=== PATIENT | female | born 1955 ===

== ENCOUNTER → 2022-05-22 10:22 | Outpatient (BNVA) | payer MEDICARE, SELFPAY | PROVIDERS: PCP Internal Medicine; Visit Provider Hospitalist | DX: J45.909 Unspecified asthma, uncomplicated (principal); G47.33 Obstructive sleep apnea (adult) (pediatric); Z79.899 Other long term (current) drug therapy; Z99.89 Dependence on other enabling machines and devices | CPT/HCPCS: 99202 ==

== ENCOUNTER 2022-06-19 10:45 | Outpatient (REF) | payer MEDICARE, SELFPAY ==
--- NOTE | 2022-06-19 12:12 | PFT_ITS ---
INDICATION: Dyspnea. SPIROMETRY: FEV1 to FVC of 80% with an FEV1 of 1.27 L, which is 52% predicted and an FVC of 1.59 L, which is 51% predicted. No significant response to bronchodilators noted. Maximum voluntary ventilation 53% predicted. LUNG VOLUMES: Total lung capacity 65% predicted with an expiratory reserve volume of 8% predicted. DIFFUSION CAPACITY: DLCO 74% predicted, now it does correct to 125% predicted when corrected for the alveolar volume. COMPARISONS: None. INTERPRETATION: No obstructive ventilatory defect, no significant response to bronchodilators noted. To note, there is significant small airways disease. There is also moderate decrease in maximum voluntary ventilation secondary to likely deconditioning and/or neuromuscular conditions. The patient does have a moderate restrictive ventilatory defect of unclear etiology. Need to consider underlying parenchymal lung conditions and/or neuromuscular conditions. Also need to consider an elevated BMI. The patient does have a significantly low expiratory reserve volume that is likely due to elevated BMI. The patient also has mild diffusion impairment. Does correct to normal when correcting for the alveolar volume. Clinical correlation warranted. Slick Diego MD MR/MODL / [id number]
[2022-06-19 12:24] LABS: MANUAL DIFF FLAG NO
[2022-06-19 13:24] LABS: Basophils Percent Auto 0.5 % (0-2); Eosinophils Percent Auto 0.3 % (0-4); Hemoglobin 13.7 g/dl (12.0-16.0); Imm Gran Abs Auto 0.01 X10*3/uL (0.00-0.03); Imm Gran Pct Auto 0.2 % (0.0-0.4); Lymphocytes Absolute Auto 2.5 X10*3/uL (1.2-4.9); Lymphocytes Percent Auto 37.7 % (20-40); Mean Corpuscular HGB Conc 32.6 g/dl (31.0-35.0); Mean Corpuscular Hemoglobin 29.7 pg (27.0-33.0); Mean Corpuscular Volume 91.1 fL (80.0-98.0); Monocytes Absolute Auto 0.5 X10*3/uL (0.1-1.2); Monocytes Percent Auto 7.4 % (2-11); Neutrophils Absolute Auto 3.5 x10*3/uL (2.0-8.3); Neutrophils Percent Auto 53.9 % (45-73); Platelet Count 182 X10*3/uL (160-400); Red Blood Count 4.61 X10*6/uL (4.20-5.50); Red Cell Distribution Width 12.3 % (11.0-16.0); White Blood Count 6.5 X10*3/uL (4.8-10.8)
[2022-06-19 13:49] LABS: Anion Gap 14 (12-20); Blood Urea Nitrogen 16 mg/dL (9-16); Calcium 9.6 mg/dL (8.4-10.2); Carbon Dioxide 30 mmol/L (22-29); Chloride 104 mmol/L (96-108); Estimated Glomerular Filt Rate > 60; Glucose Random 117 mg/dL (60-115); Potassium 4.4 mmol/L (3.3-5.1); Sodium 144 mmol/L (135-145)
[2022-06-19 14:04] LABS: Erythrocyte Sedimentation Rate 5 MM/HR (0-20)
== END 2022-06-19 10:46 | disposition home or self-care (01) ==
LOC: HO.RESP 10:45
PROVIDERS: PCP Internal Medicine; Visit Provider Hospitalist
DX: J45.909 Unspecified asthma, uncomplicated (principal); R06.00 Dyspnea, unspecified; J30.2 Other seasonal allergic rhinitis
CPT/HCPCS: 36415; 80048; 82785; 85025; 85652; 86003; 94060; 94727; 94729

== ENCOUNTER → 2022-07-05 10:47 | Outpatient (BNVA) | payer MEDICARE, SELFPAY | PROVIDERS: PCP Internal Medicine; Visit Provider Hospitalist | DX: J45.50 Severe persistent asthma, uncomplicated (principal); J98.4 Other disorders of lung; R06.09 Other forms of dyspnea; G47.33 Obstructive sleep apnea (adult) (pediatric); Z79.899 Other long term (current) drug therapy | CPT/HCPCS: 99212 ==

== ENCOUNTER → 2022-09-14 09:52 | Outpatient (BNVA) | payer MEDICARE, SELFPAY | PROVIDERS: PCP Internal Medicine; Visit Provider Hospitalist | DX: J45.51 Severe persistent asthma with (acute) exacerbation (principal); G47.33 Obstructive sleep apnea (adult) (pediatric); J98.4 Other disorders of lung; R06.09 Other forms of dyspnea | CPT/HCPCS: 99212 ==

== ENCOUNTER → 2022-11-22 13:21 | Outpatient (BNVA) | payer MEDICARE, SELFPAY | PROVIDERS: PCP Internal Medicine; Visit Provider Nurse Practitioner Family | DX: G44.309 Post-traumatic headache, unspecified, not intractable (principal); M54.2 Cervicalgia; R42 Dizziness and giddiness; Z79.899 Other long term (current) drug therapy | CPT/HCPCS: 99202 ==

== ENCOUNTER → 2022-12-14 09:46 | Outpatient (BNVA) | payer MEDICARE, SELFPAY | PROVIDERS: PCP Internal Medicine; Visit Provider Hospitalist | DX: J45.51 Severe persistent asthma with (acute) exacerbation (principal); J98.4 Other disorders of lung; G47.33 Obstructive sleep apnea (adult) (pediatric); R06.09 Other forms of dyspnea | CPT/HCPCS: 99212 ==

== ENCOUNTER → 2023-01-31 12:43 | Outpatient (BNVA) | payer MEDICARE, SELFPAY | PROVIDERS: PCP Internal Medicine; Visit Provider Nurse Practitioner Family | DX: G44.309 Post-traumatic headache, unspecified, not intractable (principal); M54.2 Cervicalgia; R42 Dizziness and giddiness | CPT/HCPCS: 99212 ==

== ENCOUNTER → 2023-03-25 10:19 | Outpatient (BNVA) | payer MEDICARE, SELFPAY | PROVIDERS: PCP Internal Medicine; Visit Provider Hospitalist | DX: J45.51 Severe persistent asthma with (acute) exacerbation (principal); J98.4 Other disorders of lung; R06.09 Other forms of dyspnea; G47.33 Obstructive sleep apnea (adult) (pediatric) | CPT/HCPCS: 99212 ==

== ENCOUNTER 2023-07-24 10:58 | Outpatient (AMB) | payer OTHER, SELFPAY ==
--- NOTE | 2023-07-24 11:21 | A.OFFVIS_ITS ---
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 Allergies naproxen Allergy (Severe, Verified 07/24/23 11:25) Hives acetaminophen [From Percocet] Adverse Reaction (Severe, Verified 07/24/23 11:25) Hallucinations aspirin Adverse Reaction (Severe, Verified 07/24/23 11:25) Hives codeine Adverse Reaction (Severe, Verified 07/24/23 11:25) Itching ibuprofen [From Motrin IB] Adverse Reaction (Severe, Verified 07/24/23 11:25) Hives Iodinated Contrast Media Adverse Reaction (Severe, Verified 07/24/23 11:25) Hypertension mepolizumab [From Nucala] Adverse Reaction (Severe, Verified 07/24/23 11:25) Itching metformin Adverse Reaction (Severe, Verified 07/24/23 11:25) Difficulty Breathing montelukast [From Singulair] Adverse Reaction (Severe, Verified 07/24/23 11:25) Anxiety morphine Adverse Reaction (Severe, Verified 07/24/23 11:25) Hallucinations omalizumab [From Xolair] Adverse Reaction (Severe, Verified 07/24/23 11:25) Anaphylaxis oxycodone Adverse Reaction (Severe, Verified 07/24/23 11:25) Hallucinations pneumococcal vaccine Adverse Reaction (Severe, Verified 07/24/23 11:25) Hives prednisone Adverse Reaction (Severe, Verified 07/24/23 11:25) Itching tramadol Adverse Reaction (Severe, Verified 07/24/23 11:25) Hives accolate Adverse Reaction (Severe, Uncoded 07/24/23 11:25) Chest Pain PCN Adverse Reaction (Severe, Uncoded 07/24/23 11:25) Hives HPI HPI Comments History of Present Illness Details The patient is a 67-year-old woman with a known history of asthma in addition to obstructive sleep apnea. She has been noticing worsening respiratory symptoms. She was placed on singular as a steroid sparing agent. However, she developed symptoms of depression and had to come off. She is continued on Trelegy which appears to be helping her. The patient had been on Nucala in the past for severe asthma. However, she developed an allergic reaction as well and had to stop it. She has not tried any other biologic medications after that. The patient has not required any prednisone. She also has diabetes and would like to hold off on any significant steroids that can worsen her diabetes control. The patient does have underlying allergies at this point will go ahead and we check her allergies to further assess her potential triggers in order to control her asthma symptoms. The patient also has underlying sleep apnea. She has been having difficulties tolerating the CPAP therapy. Therefore she has not been using it regularly the patient also has a hard time sleeping. She has been using gabapentin with some partial improvement of her symptoms. She does complaint of restless leg. 12/14/2022 the patient is here for a pulm onary follow-up visit. She recently started day Dupixent. She did complain of significant muscle aches after the injections. I reassured her that this is the loading dose and then next dosages are going to be a lower dose and hopefully less symptoms. The body will take some time to adjust to the medication. The patient has been on significant amount of prednisone and she has a lot of allergies. I did reassure her that this injections not only going to help her now but also when she goes into the springtime and she deals with her severe asthma. On examination she is better she is not having any wheezing already from getting injections. In the meantime she has been using her CPAP. However, her CPAP is no longer functional. Shortening up by itself. She is also concerned because she is not been getting any supplies either. I will send a request for replacement machine especially since she has had this machine for well over 5 years. And now is nonfunctional and should be replaced. In addition to that she continue getting supplies readily specially since she is so adherent to her therapy. 03/25/2023 the patient is here for pulmon marisela follow-up visit. Overall the patient has been feeling little better. She did have COVID-19 recently. She did take packs over. It was hard medication for her to tolerate but she took it. She was having significant GI symptoms. Right now she is doing better although now developing worsening respiratory symptoms. Complains of chest congestion chest tightness. She has been using her nebulizer. She is also using her respiratory medications. On examination she does have some wheezing and rhonchi and diminished breath sounds. 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 Will go ahead and start her on a Medrol pack and also give her doxycycline. In the meantime the patient continues use her CPAP CPAP therapy continues to be affecting beneficial. She will go back to using more regularly once she is better from her viral syndrome. 07/24/2023 the patient is here for a pul monshushan follow-up visit. She overall has been doing okay. She does have increase cough lately with this season change. Still has not required any prednisone or antibiotics. She continues on the Trelegy inhaler with good effect. Unfortunately her nebulizer is no longer working she does need a nebulizer. She has a new insurance so therefore her current DME company does not work with that new insurance and therefore would have to switch her to a new DME company. The patient needs a new nebulizer at this time. In addition to that she has been using the CPAP the CPAP therapy continues to be affecting beneficial she does use it for more than 4 hours a night. However, her DME company currently is not given her any supplies which is difficult for her. Therefore will going to submit a new prescription for s upplies to another DME company that takes her current insurance. The patient will bring her machine in the next 6 months and will evaluate the machine to see if she needs a replacement CPAP at that time. She will receive the Prevnar vaccine today. She initially did have some dizziness with it but she did well after drinking some fluid in eating some crackers and she was able to go home. If she has any other adverse effects she can call the office. She is aware that this is a vaccine that is lifelong. The patient will continue her current respiratory therapy will follow-up in 6 months. [facility] Medical History (Updated 07/19/23 @ 13:31 by Faviola Rahman) Osteoarthritis Diabetic peripheral neuropathy Diabetes GERD (gastroesophageal reflux disease) Venous insufficiency Vitamin D deficiency Urinary incontinence Insomnia Hypertriglyceridemia HTN (hypertension) Anxiety Depression Lumbar spondylosis Tubular adenoma Dyspnea Chronic restrictive lung disease Asthma TONY (obstructive sleep apnea) Surgical History (Updated 07/19/23 @ 13:31 by Faviola Rahman) History of hernia repair H/O: hysterectomy Hx of cholecystectomy History of section Hx of appendectomy History of ankle surgery Family History (System 07/19/23 @ 13:31 by Faviola Rahman) Father CHF (congestive heart failure) Mother CHF (congestive heart failure) Asthma Brother Asthma Social History (System 07/19/23 @ 13:31 by Faviola Rahman) Alcohol intake: never Patient Tobacco Use Status: Never used Tobacco Review of Systems Const Reports difficulty sleeping and Reports fatigue Eyes Denies change in vision ENT Denies change in voice, Reports nasal congestion and Reports nasal discharge Card Denies chest pain and Reports dyspnea on exertion Resp Reports cough, Reports dyspnea on exertion and Reports wheezing GI Reports no additional complaints Musc Reports no additional complaints Skin/Breast Denies rash Neuro Reports no additional complaints Endo Reports fatigue Fernando/Lymph Denies easy bleeding Aller/Immun Reports wheezing Physical Exam Vital Signs: Last Vital Signs Pulse 87 07/24/23 11:22 BP 128/70 07/24/23 11:22 Pulse Ox 97 07/24/23 11:22 Oxygen Delivery Method Room Air 07/24/23 11:22 BMI result Body Mass Index 36.4 Const General: comfortable HEENT Head: Yes normal to inspection Eyes General: appearance normal, both eyes and all related structures Neck Neck: Yes supple Chest Chest palpation & inspection: normal inspection of the chest Resp Effort & Inspection: normal respiratory effort Auscultation: rhonchi, wheezes and diminished lung sounds Cardio Rate: regular rate Rhythm: regular rhythm Heart sounds: S1 normal heart sound present and S2 normal heart sound present GI Inspection: Yes normal to inspection Extrem General: Yes no clubbing, cyanosis or edema Immunizations pneumoc 20-rajni conj-dip cr(PF) 0.5 mL IM syringe Performing Provider: Slick Diego MD Performing Location: [facility] [place] [facility] Administered by: Alma Hernandez LPN on 07/24/23 11:50 Dose Route Admin Location Dispensed Lot Number Expiration Date [facility] [employer] 0.5 mL IM Right Deltoid 0.5 mL [id number] 07/30/24 6149-7774-55 [employer] VIS Given Date VIS Provided VIS Publication Date 07/24/23 Single Vaccine 23 Eligibility Eligibility Date Funding Source Not [facility] Eligible 07/24/23 Private Assessment & Plan Assessment & Plan (1) Asthma: Qualifiers: Asthma complication type: uncomplicated Asthma persistence: persistent Asthma severity: severe Qualified Code(s): J45.50 - Severe persistent asthma, uncomplicated (2) TONY (obstructive sleep apnea): Code(s): G47.33 - Obstructive sleep apnea (adult) (pediatric) (3) Chronic restrictive lung disease: Code(s): J98.4 - Other disorders of lung (4) Dyspnea: Qualifiers: Dyspnea type: dyspnea on exertion Qualified Code(s): R06.09 - Other forms of dyspnea Plan continue Dupixent, monitor for parasthesias Needs anew nebulizer. Her current nebulizer is broken beyond repair and older than 5 years Benadryl as needed EpiPen available continue Trelegy 100 mcg inhaler MEMO as needed continue Zyrtec avoid singular secondary to depressive symptoms Adjusted APAP 5-12, HUmidity 1. Needs supplies. Konstantin BARRIOS, will request a new [employer] company. She will bring her APAP to the next visit to assess Prevnar vaccine, had some nausea and dizziness afterwards, but felt better after 10 minutes and went home F/U 4-6 months Orders: Orders Pneumococcal 20 Immunization Today Z23 - Encounter for immunization Medications: Refilled epinephrine 0.3 mg (0.3 mL) IM Q4H 30 days PRN 2 ea 11RF anaphylaxis Coding Level of Care Code Est Pt Level 4 (88366) Diagnoses Severe persistent asthma without complication J45.50 Asthma complication type: uncomplicated Asthma persistence: persistent Asthma severity: severe TONY (obstructive sleep apnea) G47.33 Chronic restrictive lung disease J98.4 Dyspnea on exertion R06.09 Dyspnea type: dyspnea on exertion Time Spent (min) 22
[2023-07-24 11:22] VITALS: BP 128/70; PULSE 87; O2SAT 97; BMI 36.4
== END 2023-07-24 11:58 | disposition home or self-care (01) ==
PROVIDERS: PCP Internal Medicine; Visit Provider Hospitalist
DX: J45.50 Severe persistent asthma, uncomplicated (principal); G47.33 Obstructive sleep apnea (adult) (pediatric); J98.4 Other disorders of lung; R06.09 Other forms of dyspnea
CPT/HCPCS: 99214

== ENCOUNTER → 2023-07-24 10:58 | Outpatient (BNVA) | payer OTHER, SELFPAY | PROVIDERS: PCP Internal Medicine; Visit Provider Hospitalist | DX: Z23 Encounter for immunization (principal); J45.50 Severe persistent asthma, uncomplicated; G47.33 Obstructive sleep apnea (adult) (pediatric); J98.4 Other disorders of lung; R06.09 Other forms of dyspnea | CPT/HCPCS: 90471; 90677; 99212 ==

== ENCOUNTER 2023-08-05 10:48 | Outpatient (AMB) | payer OTHER, SELFPAY ==
--- NOTE | 2023-08-05 11:02 | A.OFFVIS_ITS ---
Intake Vital Signs 08/05/23 11:24 Weight 209 lb BP 120/84 Pulse 88 Pulse Source Pulse Oximeter Pulse Oximetry (%) 95 Oxygen Delivery Method Room Air Intake Visit Reasons: 6m follow up Migraine/Concussion/Recent fall/Conf. 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 Allergies naproxen Allergy (Severe, Verified 08/05/23 11:09) Hives acetaminophen [From Percocet] Adverse Reaction (Severe, Verified 08/05/23 11:09) Hallucinations aspirin Adverse Reaction (Severe, Verified 08/05/23 11:09) Hives codeine Adverse Reaction (Severe, Verified 08/05/23 11:09) Itching ibuprofen [From Motrin IB] Adverse Reaction (Severe, Verified 08/05/23 11:09) Hives Iodinated Contrast Media Adverse Reaction (Severe, Verified 08/05/23 11:09) Hypertension mepolizumab [From Nucala] Adverse Reaction (Severe, Verified 08/05/23 11:09) Itching metformin Adverse Reaction (Severe, Verified 08/05/23 11:09) Difficulty Breathing montelukast [From Singulair] Adverse Reaction (Severe, Verified 08/05/23 11:09) Anxiety morphine Adverse Reaction (Severe, Verified 08/05/23 11:09) Hallucinations omalizumab [From Xolair] Adverse Reaction (Severe, Verified 08/05/23 11:09) Anaphylaxis oxycodone Adverse Reaction (Severe, Verified 08/05/23 11:09) Hallucinations pneumococcal vaccine Adverse Reaction (Severe, Verified 08/05/23 11:09) Hives prednisone Adverse Reaction (Severe, Verified 08/05/23 11:09) Itching tramadol Adverse Reaction (Severe, Verified 08/05/23 11:09) Hives accolate Adverse Reaction (Severe, Uncoded 08/05/23 11:09) Chest Pain PCN Adverse Reaction (Severe, Uncoded 08/05/23 11:09) Hives HPI HPI Comments History of Present Illness Details 67[facility]yr-[facility]. Pt reports that headache frequency has improved, might had mild headache couple of days per month, or no headache. She uses Tylenol every 2-3/month and it helps. She can gets face muscle spasm occasionally, it happens with headache, but not all the time. Pt's headache can come with neck and shoulder muscle tightness. Pt also uses flexiril 10 mg and baclofen 10 mg for muscle tightness. She is on magnesium 400 mg qHS and vitamin B2 400 mg daily. Pt reports that she sleeps well with CPAP, her mood is stable. [facility] Medical History Osteoarthritis Diabetic peripheral neuropathy Diabetes GERD (gastroesophageal reflux disease) Venous insufficiency Vitamin D deficiency Urinary incontinence Insomnia Hypertriglyceridemia HTN (hypertension) Anxiety Depression Lumbar spondylosis Tubular adenoma Dyspnea Chronic restrictive lung disease Asthma TONY (obstructive sleep apnea) Surgical History History of hernia repair H/O: hysterectomy Hx of cholecystectomy History of section Hx of appendectomy History of ankle surgery Family History Father CHF (congestive heart failure) Mother CHF (congestive heart failure) Asthma Brother Asthma Social History Alcohol intake: never Patient Tobacco Use Status: Never used Tobacco Review of Systems Const All systems reviewed & are unremarkable except as noted in HPI and below Physical Exam Vital Signs: Last Vital Signs Pulse 88 08/05/23 11:24 BP 120/84 08/05/23 11:24 Pulse Ox 95 08/05/23 11:24 Oxygen Delivery Method Room Air 08/05/23 11:24 Const Orientation/consciousness: patient oriented x3 Resp Effort & Inspection: normal respiratory effort and able to speak in complete sentences Back/Spine/Pelvis Other: Fore corrales head posture. Bilateral posterior cervical tightness and tenderness. Neuro Other: BUE MS 5/5 BLE MS 5-/5 General: patient oriented x3 Cranial nerves: Yes CN's II-XII intact bilaterally Cognition (Neuro): normal cognition Deep tendon reflexes (DTR's): Right triceps reflex intensity grade: 1+, Left triceps reflex intensity grade: 1+, Rt Biceps (C5, C6): 1+, Left biceps reflex intensity grade: 1+, Right brachioradialis reflex intensity grade: 1+, Left brachioradialis reflex intensity grade: 1+, Right patellar reflex intensity grade: 1+ and Left patellar reflex intensity grade: 1+ Coordination: [id number] test normal Pupils: Normal pupillary reactivity/response: bilateral Psych Mental Status: mental status grossly normal Speech and movement: Normal speech and movement present Affect: normal affect Attitude: cooperative Thought process: Normal thought process present Assessment & Plan Assessment & Plan (1) Posttraumatic headache: Code(s): G44.309 - Post-traumatic headache, unspecified, not intractable (2) Cervicalgia: Code(s): M54.2 - Cervicalgia (3) Dizziness: Code(s): R42 - Dizziness and giddiness Plan Continue Baclofen 10mg qHS, magnesium 400 mg qHS and vitamin B2 400 mg daily. Avoid all NSAIDs, and continue to use CPAP nightly. Medications: Refilled baclofen 10 mg PO BEDTIME 90 days 90 tabs 1RF magnesium oxide 400 mg PO DAILY 90 days 90 tabs 1RF riboflavin (vitamin B2) 400 mg PO DAILY 90 days 90 tabs 1RF Coding Level of Care Code Est Pt Level 3 (26393) Diagnoses Posttraumatic headache G44.309 Cervicalgia M54.2 Dizziness R42
[2023-08-05 11:24] VITALS: BP 120/84; PULSE 88; O2SAT 95
== END 2023-08-05 11:43 | disposition home or self-care (01) ==
PROVIDERS: Visit Provider Nurse Practitioner Family
DX: G44.309 Post-traumatic headache, unspecified, not intractable (principal); M54.2 Cervicalgia; R42 Dizziness and giddiness
CPT/HCPCS: 99213

== ENCOUNTER → 2023-08-05 10:48 | Outpatient (BNVA) | payer OTHER, SELFPAY | PROVIDERS: Visit Provider Nurse Practitioner Family | DX: G44.309 Post-traumatic headache, unspecified, not intractable (principal); M54.2 Cervicalgia; R42 Dizziness and giddiness; Z79.899 Other long term (current) drug therapy | CPT/HCPCS: 99212 ==

== ENCOUNTER 2023-10-23 10:40 | Outpatient (AMB) | payer OTHER, SELFPAY ==
--- NOTE | 2023-10-23 11:16 | MHC.OFFVIS ---
Intake Vital Signs 10/23/23 11:20 Height 5 ft 4.5 in Weight 208 lb 15.971 oz BMI 35.3 Pulse 87 Pulse Source Pulse Oximeter Pulse Oximetry (%) 94 Oxygen Delivery Method Room Air Intake Visit Reasons: Obstructive sleep apnea follow-up Clinical Trials Manager Required: No Allergies naproxen Allergy (Severe, Verified 10/23/23 11:22) Hives acetaminophen [From Percocet] Adverse Reaction (Severe, Verified 10/23/23 11:22) Hallucinations aspirin Adverse Reaction (Severe, Verified 10/23/23 11:22) Hives codeine Adverse Reaction (Severe, Verified 10/23/23 11:22) Itching ibuprofen [From Motrin IB] Adverse Reaction (Severe, Verified 10/23/23 11:22) Hives Iodinated Contrast Media Adverse Reaction (Severe, Verified 10/23/23 11:22) Hypertension mepolizumab [From Nucala] Adverse Reaction (Severe, Verified 10/23/23 11:22) Itching metformin Adverse Reaction (Severe, Verified 10/23/23 11:22) Difficulty Breathing montelukast [From Singulair] Adverse Reaction (Severe, Verified 10/23/23 11:22) Anxiety morphine Adverse Reaction (Severe, Verified 10/23/23 11:22) Hallucinations omalizumab [From Xolair] Adverse Reaction (Severe, Verified 10/23/23 11:22) Anaphylaxis oxycodone Adverse Reaction (Severe, Verified 10/23/23 11:22) Hallucinations pneumococcal vaccine Adverse Reaction (Severe, Verified 10/23/23 11:22) Hives prednisone Adverse Reaction (Severe, Verified 10/23/23 11:22) Itching tramadol Adverse Reaction (Severe, Verified 10/23/23 11:22) Hives accolate Adverse Reaction (Severe, Uncoded 10/23/23 11:22) Chest Pain PCN Adverse Reaction (Severe, Uncoded 10/23/23 11:22) Hives HPI HPI Comments History of Present Illness Details The patient is a 68-year-old woman with a known history of asthma in addition to obstructive sleep apnea. She has been noticing worsening respiratory symptoms. She was placed on singular as a steroid sparing agent. However, she developed symptoms of depression and had to come off. She is continued on Trelegy which appears to be helping her. The patient had been on Nucala in the past for severe asthma. However, she developed an allergic reaction as well and had to stop it. She has not tried any other biologic medications after that. The patient has not required any prednisone. She also has diabetes and would like to hold off on any significant steroids that can worsen her diabetes control. The patient does have underlying allergies at this point will go ahead and we check her allergies to further assess her potential triggers in order to control her asthma symptoms. The patient also has underlying sleep apnea. She has been having difficulties tolerating the CPAP therapy. Therefore she has not been using it regularly the patient also has a hard time sleeping. She has been using gabapentin with some partial improvement of her symptoms. She does complaint of restless leg. 12/14/2022 the patient is here for a pulmonary follow-up visit. She recently started day Dupixent. She did complain of significant muscle aches after the injections. I reassured her that this is the loading dose and then next dosages are going to be a lower dose and hopefully less symptoms. The body will take some time to adjust to the medication. The patient has been on significant amount of prednisone and she has a lot of allergies. I did reassure her that this injections not only going to help her now but also when she goes into the springtime and she deals with her severe asthma. On examination she is better she is not having any wheezing already from getting injections. In the meantime she has been using her CPAP. However, her CPAP is no longer functional. Shortening up by itself. She is also concerned because she is not been getting any supplies either. I will send a request for replacement machine especially since she has had this machine for well over 5 years. And now is nonfunctional and should be replaced. In addition to that she continue getting supplies readily specially since she is so adherent to her therapy. 03/25/2023 the patient is here for pulmonary follow-up visit. Overall the patient has been feeling little better. She did have COVID-19 recently. She did take packs over. It was hard medication for her to tolerate but she took it. She was having significant GI symptoms. Right now she is doing better although now developing worsening respiratory symptoms. Complains of chest congestion chest tightness. She has been using her nebulizer. She is also using her respiratory medications. On examination she does have some wheezing and rhonchi and diminished breath sounds. 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 Will go ahead and start her on a Medrol pack and also give her doxycycline. In the meantime the patient continues use her CPAP CPAP therapy continues to be affecting beneficial. She will go back to using more regularly once she is better from her viral syndrome. 07/24/2023 the patient is here for a pulmonary follow-up visit. She overall has been doing okay. She does have increase cough lately with this season change. Still has not required any prednisone or antibiotics. She continues on the Trelegy inhaler with good effect. Unfortunately her nebulizer is no longer working she does need a nebulizer. She has a new insurance so therefore her current DME company does not work with that new insurance and therefore would have to switch her to a new DME company. The patient needs a new nebulizer at this time. In addition to that she has been using the CPAP the CPAP therapy continues to be affecting beneficial she does use it for more than 4 hours a night. However, her DME company currently is not given her any supplies which is difficult for her. Therefore will going to submit a new prescription for supplies to another [employer] company that takes her current insurance. The patient will bring her machine in the next 6 months and will evaluate the machine to see if she needs a replacement CPAP at that time. She will receive the Prevnar vaccine today. She initially did have some dizziness with it but she did well after drinking some fluid in eating some crackers and she was able to go home. If she has any other adverse effects she can call the office. She is aware that this is a vaccine that is lifelong. The patient will continue her current respiratory therapy will follow-up in 6 months. 10/23/2023 the patient is here for a pulmonary follow-up visit. Apparently she was sick back close to the holidays. She had a hard time getting in to be seen. Therefore she stayed home and gave herself breathing treatments throughout the day and finally started feeling better after few days. She was concerned though that her breathing was significantly effective. The patient did not take any prednisone and she does not like to take prednisone because it causes her to have pleuritis and also elevated blood sugars. She is also struggling with her sleep. She does have a CPAP in the CPAP therapy has been very affecting beneficial for her in the past but now she does not get supplies from the DME company. Her machine now is older than 5 years therefore will see about getting her new machine them in more effective and then that weight getting her situated with the [facility] [facility]. Her Adell score is elevated at 10 over 24. She does have cardiovascular risk factors are treating his sleep apnea is important. The patient likely will require repeat home sleep study. Will reach out to her [employer] to see if they need any other additional information in order to get a replacement machine at this time. In the meantime for her respiratory symptoms she does have increased wheezing therefore will send him medications with the pharmacy and will optimize her Trelegy by switching over to the 200 mcg dose for a month and then hopefully we can titrate her back down to the 100 mcg those. [facility] Medical History Osteoarthritis Diabetic peripheral neuropathy Diabetes GERD (gastroesophageal reflux disease) Venous insufficiency Vitamin D deficiency Urinary incontinence Insomnia Hypertriglyceridemia HTN (hypertension) Anxiety Depression Lumbar spondylosis Tubular adenoma Dyspnea Chronic restrictive lung disease Asthma TONY (obstructive sleep apnea) Surgical History History of hernia repair H/O: hysterectomy Hx of cholecystectomy History of section Hx of appendectomy History of ankle surgery Family History Father CHF (congestive heart failure) Mother CHF (congestive heart failure) Asthma Brother Asthma Social History Alcohol intake: never Patient Tobacco Use Status: Never used Tobacco Physical Exam Vital Signs: Last Vital Signs Pulse 87 10/23/23 11:20 Pulse Ox 94 10/23/23 11:20 Oxygen Delivery Method Room Air 10/23/23 11:20 BMI result Body Mass Index 35.3 Assessment & Plan Assessment & Plan (1) Asthma: Code(s): J45.909 - Unspecified asthma, uncomplicated (2) TONY (obstructive sleep apnea): Code(s): G47.33 - Obstructive sleep apnea (adult) (pediatric) (3) Chronic restrictive lung disease: Code(s): J98.4 - Other disorders of lung (4) Dyspnea: Code(s): R06.00 - Dyspnea, unspecified Plan continue Dupixent, monitor for parasthesias nebulizer. Benadryl as needed EpiPen available Increase Trelegy 200 mcg inhaler x 1 month, then back to 100mcg MEMO as needed continue Zyrtec avoid singular secondary to depressive symptoms Needs a new APAP with supplies. Adjusted APAP 5-12, Will trial F30i medium. Home PSG to address TONY and reactivation F/U 4-6 months Medications: New sbntabbafym-sjqkhvkah-hifqdvrq 200-62.5-25 mcg (Trelegy Ellipta) 1 inh inhalation DAILY 30 days 60 ea 0RF azithromycin 500 mg PO DAILY 5 days 5 tabs 0RF methylprednisolone (Medrol (Evelio)) PO PER PKG DIR 6 days 21 ea 0RF Coding Level of Care Code Est Pt Level 4 (85406) Diagnoses Asthma J45.909 TONY (obstructive sleep apnea) G47.33 Chronic restrictive lung disease J98.4 Dyspnea R06.00 Time Spent (min) 17
[2023-10-23 11:20] VITALS: PULSE 87; O2SAT 94; BMI 35.3
== END 2023-10-23 11:51 | disposition home or self-care (01) ==
PROVIDERS: PCP Internal Medicine; Visit Provider Hospitalist
DX: J45.909 Unspecified asthma, uncomplicated (principal); G47.33 Obstructive sleep apnea (adult) (pediatric); J98.4 Other disorders of lung; R06.00 Dyspnea, unspecified
CPT/HCPCS: 99214

== ENCOUNTER → 2023-10-23 10:40 | Outpatient (BNVA) | payer OTHER, SELFPAY | PROVIDERS: PCP Internal Medicine; Visit Provider Hospitalist | DX: G47.33 Obstructive sleep apnea (adult) (pediatric) (principal); J45.909 Unspecified asthma, uncomplicated; J98.4 Other disorders of lung; R06.00 Dyspnea, unspecified | CPT/HCPCS: 99212 ==

== ENCOUNTER 2024-01-21 10:39 | Outpatient (AMB) | payer OTHER, SELFPAY ==
--- NOTE | 2024-01-21 10:49 | MHC.OFFVIS ---
Vital Signs 01/21/24 10:51 Height 5 ft 4 in Weight 195 lb BMI 33.5 BP 132/80 Blood Pressure Location Rt brachial Position Sitting Pulse 102 H Pulse Source Pulse Oximeter Pulse Oximetry (%) 98 Oxygen Delivery Method Room Air Intake Visit Reasons: astham/ED Allergies naproxen Allergy (Severe, Verified 01/21/24 10:57) Hives acetaminophen [From Percocet] Adverse Reaction (Severe, Verified 01/21/24 10:57) Hallucinations aspirin Adverse Reaction (Severe, Verified 01/21/24 10:57) Hives codeine Adverse Reaction (Severe, Verified 01/21/24 10:57) Itching ibuprofen [From Motrin IB] Adverse Reaction (Severe, Verified 01/21/24 10:57) Hives Iodinated Contrast Media Adverse Reaction (Severe, Verified 01/21/24 10:57) Hypertension mepolizumab [From Nucala] Adverse Reaction (Severe, Verified 01/21/24 10:57) Itching metformin Adverse Reaction (Severe, Verified 01/21/24 10:57) Difficulty Breathing montelukast [From Singulair] Adverse Reaction (Severe, Verified 01/21/24 10:57) Anxiety morphine Adverse Reaction (Severe, Verified 01/21/24 10:57) Hallucinations omalizumab [From Xolair] Adverse Reaction (Severe, Verified 01/21/24 10:57) Anaphylaxis oxycodone Adverse Reaction (Severe, Verified 01/21/24 10:57) Hallucinations pneumococcal vaccine Adverse Reaction (Severe, Verified 01/21/24 10:57) Hives prednisone Adverse Reaction (Severe, Verified 01/21/24 10:57) Itching tramadol Adverse Reaction (Severe, Verified 01/21/24 10:57) Hives accolate Adverse Reaction (Severe, Uncoded 01/21/24 10:57) Chest Pain PCN Adverse Reaction (Severe, Uncoded 01/21/24 10:57) Hives HPI HPI astham/ED: Details: Jazlyn is a pleasant 68 year old female, never smoker, with underlying asthma, HTN, TONY and DMII. She is under the care of Dr. Diego and presents today for a hospital discharge follow up, admitted to [facility] 01/08-01/13/24. She initially developed wheezing, syncope, dyspnea, pleuritic chest pain, productive cough a week prior to ED evaluation at [facility]. Cardiac workup negative, including troponins and EKG unremarkable. Orthostatics were +, treated with IVF. Respiratory panel negative however sputum culture grew norcardia. ID was consulted, placed on Batrim x 4 weeks as well as prednisone and discharged to a SNF. She reports improvements in the cough, however continues with fatigue, wheezing and dyspnea. [facility] Medical History Osteoarthritis Diabetic peripheral neuropathy Diabetes GERD (gastroesophageal reflux disease) Venous insufficiency Vitamin D deficiency Urinary incontinence Insomnia Hypertriglyceridemia HTN (hypertension) Anxiety Depression Lumbar spondylosis Tubular adenoma Dyspnea Chronic restrictive lung disease Asthma TONY (obstructive sleep apnea) Surgical History History of hernia repair H/O: hysterectomy Hx of cholecystectomy History of section Hx of appendectomy History of ankle surgery Family History Father CHF (congestive heart failure) Mother CHF (congestive heart failure) Asthma Brother Asthma Social History Alcohol intake: never Patient Tobacco Use Status: Never used Tobacco Review of Systems Const Denies chills, Denies excessive sweating, Denies fever(s), Denies headache(s) and Denies night sweats Eyes Denies dry eyes, Denies irritation and Denies itchy eyes ENT Reports Normal hearing present, Denies headache(s), Denies nasal congestion, Denies nasal discharge, Denies post nasal drip and Denies sore throat Card Denies chest pain, Denies chest pain at rest, Denies chest pain with activity, Denies claudication, Denies leg edema, Denies orthopnea and Denies paroxysmal nocturnal dyspnea Resp Denies chest congestion, Denies cough, Denies excessive phlegm production, Denies pain on inspiration, Denies pain with cough and Denies stridor Musc Denies myalgias Neuro Reports Normal hearing present and Denies headache(s) Endo Denies excessive sweating Fernando/Lymph Denies lymphadenopathy Aller/Immun Denies itchy eyes and Denies seasonal rhinorrhea Physical Exam Vital Signs: Last Vital Signs Pulse 102 H 01/21/24 10:51 BP 132/80 01/21/24 10:51 Pulse Ox 98 04/23/24 10:51 Oxygen Delivery Method Room Air 01/21/24 10:51 BMI result Body Mass Index 33.5 Const General: cooperative, healthy appearing, no acute distress, well developed and alert Nutritional Appearance: obese Orientation/consciousness: patient oriented x3 Limitations: no limitations HEENT Head: Yes normal to inspection, Yes normocephalic and Yes atraumatic Ears: hearing grossly normal bilaterally and external ears normal Eyes General: appearance normal, both eyes and all related structures Eyelids: Yes eyelids normal Sclerae: sclerae normal EOM: EOMs intact bilaterally Neck Neck: Yes normal visual inspection and Yes no lymphadenopathy Lymphatic: no lymphadenopathy noted Chest Chest palpation & inspection: normal inspection of the chest Resp Other: moderate expiratory wheezing throughout, improved with neb treatment Effort & Inspection: normal respiratory effort, able to speak in complete sentences, no audible wheezes, no stridor, not tachypneic, no tripod positioning and no use of accessory muscles Cardio Jugular venous distension: no JVD Rate: regular rate Rhythm: regular rhythm Skin Other: warm, dry General skin exam: no rashes or lesions noted Neuro General: patient oriented x3 Cranial nerves: Yes Normal hearing present Cognition (Neuro): normal cognition Gait exam (Neuro): Normal gait present Extrem General: Yes normal to inspection, Yes capillary refill normal, Yes no clubbing, cyanosis or edema and Yes no pedal edema Psych Appearance: grossly normal and well kempt Speech and movement: Normal speech and movement present and Clear speech present Affect: normal affect Attitude: cooperative Thought process: Normal thought process present Thought content: Normal thought content present Insight: Good insight present (Psych) Judgement: Good judgement present (Psych) Office Procedures Nebulizer Treatment Nebulizer Treatment [id number]/MDI RX initial, or Nebulizer Subsequent Treatment Office Meds ipratropium 0.5 mg-albuterol 3 mg (2.5 mg base)/3 mL nebulization robertn Performing Provider: Pennie Ernst NP Performing Location: [facility] Administered by: Umm Yates LPN on 01/21/24 11:31 Dose Route Admin Location Dispensed Lot Number Expiration Date [facility] Electronic Prepress Technician 3 mL inhalation 3 mL [id number] 07/30/25 71725-572-55 [employer] Assessment & Plan Assessment & Plan (1) Asthma: Code(s): J45.909 - Unspecified asthma, uncomplicated Category: Medical (2) TONY (obstructive sleep apnea): Code(s): G47.33 - Obstructive sleep apnea (adult) (pediatric) Category: Medical (3) Chronic restrictive lung disease: Code(s): J98.4 - Other disorders of lung Category: Medical (4) Dyspnea: Code(s): R06.00 - Dyspnea, unspecified Category: Medical Plan Patient reports improvements in cough since starting Bactrim on 01/12, advised to continue at this time. Will obtain CBC since on 4 week course of bactrim. If at any point her symptoms worsen, she is to call the office to discuss possible alternative antibiotic. Will also obtain CXR. Recommended that patient use albuterol nebulizer q 4-6 hours PRN while in this acute period. Will extend prednisone course for persistent wheezing and patient towards end of prior prednisone taper. She is aware if symptoms do not improve to call the office. All questions were answered and patient is in agreement of plan. Will follow up for her regularly scheduled appointment or sooner if needed. Orders: Orders AMB Nebulizer Treatment 01/21/24 J45.51 - Severe persistent asthma with (acute) exacerbation, R06.09 - Other forms of dyspnea XR chest 2V 01/21/24 R05.9 - Cough, unspecified Medications: New prednisone see taper instructions Take 4 pills daily for 5 days, then go down by 1 pill every 5 days; 20 days 10 mg PO DIRECTED 50 tabs 0RF Coding Level of Care Code Est Pt Level 4 (46519) Diagnoses Asthma J45.909 TONY (obstructive sleep apnea) G47.33 Chronic restrictive lung disease J98.4 Dyspnea R06.00 CPT Codes Nebulizer Treatment - Nebulizer Treatment, initial or subsequent: [id number]/MDI RX initial, or Nebulizer Subsequent Treatment ([id number])
[2024-01-21 10:51] VITALS: BP 132/80; PULSE 102; O2SAT 98; BMI 33.5
== END 2024-01-21 11:52 | disposition home or self-care (01) ==
PROVIDERS: PCP Internal Medicine; Visit Provider Nurse Practitioner Family
DX: J45.909 Unspecified asthma, uncomplicated (principal); G47.33 Obstructive sleep apnea (adult) (pediatric); J98.4 Other disorders of lung; R06.00 Dyspnea, unspecified
CPT/HCPCS: 99214

== ENCOUNTER → 2024-01-21 10:39 | Outpatient (BNVA) | payer OTHER, SELFPAY | PROVIDERS: PCP Internal Medicine; Visit Provider Nurse Practitioner Family | DX: J45.51 Severe persistent asthma with (acute) exacerbation (principal); J98.4 Other disorders of lung; R06.00 Dyspnea, unspecified; G47.33 Obstructive sleep apnea (adult) (pediatric) | CPT/HCPCS: 94640; 99212 ==

== ENCOUNTER 2024-02-03 09:58 | Outpatient (REF) | payer OTHER, SELFPAY ==
--- NOTE | ~2024-02-03 | XR_ITS ---
EXAMINATION: XR CHEST CLINICAL INFORMATION: Cough for 4 days, unspecified. COMPARISON: None available. TECHNIQUE: 3 views of the chest. FINDINGS: There is no gross pneumothorax. Lung volumes are low. Heart size is normal. Streaky bibasilar opacities are characteristic of atelectasis, although an infectious/inflammatory process could also be considered. No gross pleural effusion. Surgical clips in the right upper quadrant. Evaluation of the cardiomediastinal silhouette is limited due to low lung volumes. XR/XR chest 2V IMPRESSION: Streaky bibasilar opacities are characteristic of atelectasis, although an infectious/inflammatory process could also be considered.
[2024-02-03 10:28] LABS: MANUAL DIFF FLAG NO
[2024-02-03 10:42] LABS: Basophils Percent Auto 0.4 % (0-2); Eosinophils Absolute Auto 0.1 X10*3/uL (0.0-0.4); Eosinophils Percent Auto 1.2 % (0-4); Hematocrit 40.4 % (37.0-47.0); Hemoglobin 13.1 g/dl (12.0-16.0); Imm Gran Abs Auto 0.11 X10*3/uL (0.00-0.03); Lymphocytes Absolute Auto 1.6 X10*3/uL (1.2-4.9); Lymphocytes Percent Auto 15.3 % (20-40); Mean Corpuscular HGB Conc 32.4 g/dl (31.0-35.0); Mean Corpuscular Hemoglobin 30.1 pg (27.0-33.0); Mean Corpuscular Volume 92.9 fL (80.0-98.0); Mean Platelet Volume 10.1 fL (9.4-12.3); Monocytes Absolute Auto 0.6 X10*3/uL (0.1-1.2); Monocytes Percent Auto 5.4 % (2-11); Neutrophils Absolute Auto 8.3 x10*3/uL (2.0-8.3); Neutrophils Percent Auto 76.7 % (45-73); Platelet Count 183 X10*3/uL (160-400); Red Blood Count 4.35 X10*6/uL (4.20-5.50); Red Cell Distribution Width 12.7 % (11.0-16.0); White Blood Count 10.8 X10*3/uL (4.8-10.8)
== END 2024-02-03 09:59 | disposition home or self-care (01) ==
LOC: HO.XRAY 09:58
PROVIDERS: PCP Internal Medicine; Visit Provider Nurse Practitioner Family
DX: R05.9 Cough, unspecified (principal)
CPT/HCPCS: 36415; 71046; 85025

== ENCOUNTER 2024-03-27 09:21 | Outpatient (AMB) | payer OTHER, SELFPAY ==
[2024-03-27 09:30] VITALS: PULSE 102; O2SAT 97; BMI 33.4
--- NOTE | 2024-03-27 09:30 | MHC.OFFVIS ---
Vital Signs 03/27/24 09:30 Height 5 ft 4 in Weight 194 lb 14.218 oz BMI 33.4 Pulse 102 H Pulse Source Pulse Oximeter Pulse Oximetry (%) 97 Oxygen Delivery Method Room Air Intake Visit Reasons: Sick Visit/Asthma Marketing And Outreach Coordinator Required: No Allergies naproxen Allergy (Severe, Verified 03/27/24 09:32) Hives acetaminophen [From Percocet] Adverse Reaction (Severe, Verified 03/27/24 09:32) Hallucinations aspirin Adverse Reaction (Severe, Verified 03/27/24 09:32) Hives codeine Adverse Reaction (Severe, Verified 03/27/24 09:32) Itching ibuprofen [From Motrin IB] Adverse Reaction (Severe, Verified 03/27/24 09:32) Hives Iodinated Contrast Media Adverse Reaction (Severe, Verified 03/27/24 09:32) Hypertension mepolizumab [From Nucala] Adverse Reaction (Severe, Verified 03/27/24 09:32) Itching metformin Adverse Reaction (Severe, Verified 03/27/24 09:32) Difficulty Breathing montelukast [From Singulair] Adverse Reaction (Severe, Verified 03/27/24 09:32) Anxiety morphine Adverse Reaction (Severe, Verified 03/27/24 09:32) Hallucinations omalizumab [From Xolair] Adverse Reaction (Severe, Verified 03/27/24 09:32) Anaphylaxis oxycodone Adverse Reaction (Severe, Verified 03/27/24 09:32) Hallucinations pneumococcal vaccine Adverse Reaction (Severe, Verified 03/27/24 09:32) Hives prednisone Adverse Reaction (Severe, Verified 03/27/24 09:32) Itching tramadol Adverse Reaction (Severe, Verified 03/27/24 09:32) Hives accolate Adverse Reaction (Severe, Uncoded 03/27/24 09:32) Chest Pain PCN Adverse Reaction (Severe, Uncoded 03/27/24 09:32) Hives HPI Comments Details: The patient is a 68-year-old woman with a known history of asthma in addition to obstructive sleep apnea. She has been noticing worsening respiratory symptoms. She was placed on singular as a steroid sparing agent. However, she developed symptoms of depression and had to come off. She is continued on Trelegy which appears to be helping her. The patient had been on Nucala in the past for severe asthma. However, she developed an allergic reaction as well and had to stop it. She has not tried any other biologic medications after that. The patient has not required any prednisone. She also has diabetes and would like to hold off on any significant steroids that can worsen her diabetes control. The patient does have underlying allergies at this point will go ahead and we check her allergies to further assess her potential triggers in order to control her asthma symptoms. The patient also has underlying sleep apnea. She has been having difficulties tolerating the CPAP therapy. Therefore she has not been using it regularly the patient also has a hard time sleeping. She has been using gabapentin with some partial improvement of her symptoms. She does complaint of restless leg. 12/14/2022 the patient is here for a pulmonary follow-up visit. She recently started day Dupixent. She did complain of significant muscle aches after the injections. I reassured her that this is the loading dose and then next dosages are going to be a lower dose and hopefully less symptoms. The body will take some time to adjust to the medication. The patient has been on significant amount of prednisone and she has a lot of allergies. I did reassure her that this injections not only going to help her now but also when she goes into the springtime and she deals with her severe asthma. On examination she is better she is not having any wheezing already from getting injections. In the meantime she has been using her CPAP. However, her CPAP is no longer functional. Shortening up by itself. She is also concerned because she is not been getting any supplies either. I will send a request for replacement machine especially since she has had this machine for well over 5 years. And now is nonfunctional and should be replaced. In addition to that she continue getting supplies readily specially since she is so adherent to her therapy. 03/25/2023 the patient is here for pulmonary follow-up visit. Overall the patient has been feeling little better. She did have COVID-19 recently. She did take packs over. It was hard medication for her to tolerate but she took it. She was having significant GI symptoms. Right now she is doing better although now developing worsening respiratory symptoms. Complains of chest congestion chest tightness. She has been using her nebulizer. She is also using her respiratory medications. On examination she does have some wheezing and rhonchi and diminished breath sounds. 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 Will go ahead and start her on a Medrol pack and also give her doxycycline. In the meantime the patient continues use her CPAP CPAP therapy continues to be affecting beneficial. She will go back to using more regularly once she is better from her viral syndrome. 07/24/2023 the patient is here for a pulmonary follow-up visit. She overall has been doing okay. She does have increase cough lately with this season change. Still has not required any prednisone or antibiotics. She continues on the Trelegy inhaler with good effect. Unfortunately her nebulizer is no longer working she does need a nebulizer. She has a new insurance so therefore her current DME company does not work with that new insurance and therefore would have to switch her to a new DME company. The patient needs a new nebulizer at this time. In addition to that she has been using the CPAP the CPAP therapy continues to be affecting beneficial she does use it for more than 4 hours a night. However, her DME company currently is not given her any supplies which is difficult for her. Therefore will going to submit a new prescription for supplies to another [employer] company that takes her current insurance. The patient will bring her machine in the next 6 months and will evaluate the machine to see if she needs a replacement CPAP at that time. She will receive the Prevnar vaccine today. She initially did have some dizziness with it but she did well after drinking some fluid in eating some crackers and she was able to go home. If she has any other adverse effects she can call the office. She is aware that this is a vaccine that is lifelong. The patient will continue her current respiratory therapy will follow-up in 6 months. 10/23/2023 the patient is here for a pulmonary follow-up visit. Apparently she was sick back close to the holidays. She had a hard time getting in to be seen. Therefore she stayed home and gave herself breathing treatments throughout the day and finally started feeling better after few days. She was concerned though that her breathing was significantly effective. The patient did not take any prednisone and she does not like to take prednisone because it causes her to have pleuritis and also elevated blood sugars. She is also struggling with her sleep. She does have a CPAP in the CPAP therapy has been very affecting beneficial for her in the past but now she does not get supplies from the DME company. Her machine now is older than 5 years therefore will see about getting her new machine them in more effective and then that weight getting her situated with the [employer]. Her [place] score is elevated at 10 over 24. She does have cardiovascular risk factors are treating his sleep apnea is important. The patient likely will require repeat home sleep study. Will reach out to her [employer] company to see if they need any other additional information in order to get a replacement machine at this time. In the meantime for her respiratory symptoms she does have increased wheezing therefore will send him medications with the pharmacy and will optimize her Trelegy by switching over to the 200 mcg dose for a month and then hopefully we can titrate her back down to the 100 mcg those. 03/27/2024 the patient is here for sick visit. She has been sick for about 3-4 days. She started developing increased chest tightness and cough. She is also felt weak. She felt some chills. She did call the office we do not have any availability we recommended she go to urgent care. She called again we sent her some medications in the meantime. We made an appointment for today. She has been feeling a little better since she started the Medrol Evelio and she also started the antibiotics, azithromycin. She is still coughing up significant amount of mucus. Greenish in color. She did have a sample that was sent. 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 She was treated with Bactrim for about 4 weeks. She tolerated the treatment well. Will go ahead and send also modified acid-fast for Nocardia. The patient is having significant wheezing on examination. We did provide her with 2 DuoNeb treatments and also that swab for RSV, flu and COVID-19. The result came back negative. She also had a chest x-ray which I personally reviewed which demonstrated some slight atelectasis to the left base suggesting bronchitis. Will go ahead and treat her for early pneumonia at this time. [facility] Medical History Osteoarthritis Diabetic peripheral neuropathy Diabetes GERD (gastroesophageal reflux disease) Venous insufficiency Vitamin D deficiency Urinary incontinence Insomnia Hypertriglyceridemia HTN (hypertension) Anxiety Depression Lumbar spondylosis Tubular adenoma Dyspnea Chronic restrictive lung disease Asthma TONY (obstructive sleep apnea) Surgical History History of hernia repair H/O: hysterectomy Hx of cholecystectomy History of section Hx of appendectomy History of ankle surgery Family History Father CHF (congestive heart failure) Mother CHF (congestive heart failure) Asthma Brother Asthma Social History Alcohol intake: never Patient Tobacco Use Status: Never used Tobacco Review of Systems Const Reports difficulty sleeping and Reports fatigue Eyes Denies change in vision ENT Denies change in voice, Reports nasal congestion and Reports nasal discharge Card Denies chest pain and Reports dyspnea on exertion Resp Reports chest congestion, Reports cough, Reports dyspnea on exertion and Reports wheezing GI Reports no additional complaints Musc Reports no additional complaints Skin/Breast Denies rash Neuro Reports no additional complaints Endo Reports fatigue Fernando/Lymph Denies easy bleeding Aller/Immun Reports wheezing Physical Exam Vital Signs: Last Vital Signs Pulse 102 H 03/27/24 09:30 Pulse Ox 97 03/27/24 09:30 Oxygen Delivery Method Room Air 03/27/24 09:30 BMI result Body Mass Index 33.4 Const General: comfortable HEENT Head: Yes normal to inspection Eyes General: appearance normal, both eyes and all related structures Neck Neck: Yes supple Chest Chest palpation & inspection: normal inspection of the chest Resp Effort & Inspection: normal respiratory effort Auscultation: rhonchi, wheezes and diminished lung sounds Cardio Rate: regular rate Rhythm: regular rhythm Heart sounds: S1 normal heart sound present and S2 normal heart sound present GI Inspection: Yes normal to inspection Extrem General: Yes no clubbing, cyanosis or edema Assessment & Plan Assessment & Plan (1) Asthma: Code(s): J45.909 - Unspecified asthma, uncomplicated Category: Medical Qualifiers: Asthma severity: severe Asthma persistence: persistent Asthma complication type: with acute exacerbation Qualified Code(s): J45.51 - Severe persistent asthma with (acute) exacerbation (2) Cough: Code(s): R05.9 - Cough, unspecified Category: Medical Qualifiers: Cough type: subacute Qualified Code(s): R05.2 - Subacute cough (3) TONY (obstructive sleep apnea): Code(s): G47.33 - Obstructive sleep apnea (adult) (pediatric) Category: Medical (4) Chronic restrictive lung disease: Code(s): J98.4 - Other disorders of lung Category: Medical (5) Dyspnea: Code(s): R06.00 - Dyspnea, unspecified Category: Medical Plan Medrol taper, monitor BS continue ZTX start Vantin CXR sputum cx nasal swab negative continue Dupixent, monitor for parasthesias nebulizer. EpiPen available Continue Trelegy 100 mcg inhaler daily MEMO as needed continue Zyrtec avoid singular secondary to depressive symptoms Needs a new APAP with supplies. Adjusted APAP 5-12, Will trial F30i medium. Home PSG to address TONY and reactivation F/U 2 weeks Orders: Orders Acid-fast Culture + Smear 03/27/24 R05.9 - Cough, unspecified SARS-CoV2/FLU/RSV 03/27/24 R05.2 - Subacute cough Sputum Cult + Gram stain 03/27/24 R05.9 - Cough, unspecified XR chest 2V 03/27/24 R05.2 - Subacute cough, R06.09 - Other forms of dyspnea Medications: New methylprednisolone (Medrol) orally daily; take 2 tabs by mouth twice a day x 3 days, then, take 2 tabs in the am and 1 tab in the evening x 3 days, then, take 1 tablet twice a day x 3 days, then 1 tab daily x 3 days 12 days 30 tabs 0RF cefpodoxime must administer with a meal/food 200 mg PO BID 10 days 20 tabs 0RF fluconazole 100 mg PO DAILY 7 tabs 0RF Coding Level of Care Code Est Pt Level 4 (70761) Diagnoses Severe persistent asthma with acute exacerbation J45.51 Asthma severity: severe Asthma persistence: persistent Asthma complication type: with acute exacerbation Subacute cough R05.2 Cough type: subacute TONY (obstructive sleep apnea) G47.33 Chronic restrictive lung disease J98.4 Dyspnea R06.00 Time Spent (min) 20
== END 2024-03-27 10:18 | disposition home or self-care (01) ==
PROVIDERS: PCP Internal Medicine; Visit Provider Hospitalist
DX: J45.51 Severe persistent asthma with (acute) exacerbation (principal); R05.2 Subacute cough; G47.33 Obstructive sleep apnea (adult) (pediatric); J98.4 Other disorders of lung; R06.00 Dyspnea, unspecified
CPT/HCPCS: 99214

== ENCOUNTER 2024-03-27 09:21 | Outpatient (REF) | payer OTHER, SELFPAY ==
--- NOTE | ~2024-03-27 | XR_ITS ---
EXAMINATION: XR CHEST CLINICAL INFORMATION: Other forms of dyspnea. COMPARISON: Chest of February 03, 2024 TECHNIQUE: 2 views of the chest were obtained. FINDINGS: There is no gross pneumothorax. Lung volumes are low. Heart size is normal. Mild degenerative changes in the thoracic spine. Surgical clips in the upper abdomen. Increased streaky bibasilar opacities are characteristic of atelectasis, although an infectious/inflammatory process should also be considered in the appropriate clinical setting. XR/XR chest 2V IMPRESSION: Increased streaky bibasilar opacities are characteristic of atelectasis, although an infectious/inflammatory process should also be considered in the appropriate clinical setting.
[2024-03-27 11:13] LABS: Influenza A PCR NEGATIVE (Negative); Influenza B PCR NEGATIVE (Negative); Resp Syncy Virus RNA Qual PCR NEGATIVE (Negative); SARS COV2 PCR INHOUSE NEGATIVE (Negative)
== END 2024-03-27 09:22 | disposition home or self-care (01) ==
LOC: HO.XRAY 09:21
PROVIDERS: PCP Internal Medicine; Visit Provider Hospitalist
DX: R05.2 Subacute cough (principal); J45.51 Severe persistent asthma with (acute) exacerbation; J98.4 Other disorders of lung; R06.00 Dyspnea, unspecified
CPT/HCPCS: 0241U; 71046; 87070; 87116; 87205; 87206; 99212

== ENCOUNTER 2024-04-09 10:04 | Outpatient (AMB) | payer OTHER, SELFPAY ==
--- NOTE | 2024-04-09 10:08 | A.OFFVIS_ITS ---
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 Required: No Allergies naproxen Allergy (Severe, Verified 04/09/24 10:10) Hives acetaminophen [From Percocet] Adverse Reaction (Severe, Verified 04/09/24 10:10) Hallucinations aspirin Adverse Reaction (Severe, Verified 04/09/24 10:10) Hives codeine Adverse Reaction (Severe, Verified 04/09/24 10:10) Itching ibuprofen [From Motrin IB] Adverse Reaction (Severe, Verified 04/09/24 10:10) Hives Iodinated Contrast Media Adverse Reaction (Severe, Verified 04/09/24 10:10) Hypertension mepolizumab [From Nucala] Adverse Reaction (Severe, Verified 04/09/24 10:10) Itching metformin Adverse Reaction (Severe, Verified 04/09/24 10:10) Difficulty Breathing montelukast [From Singulair] Adverse Reaction (Severe, Verified 04/09/24 10:10) Anxiety morphine Adverse Reaction (Severe, Verified 04/09/24 10:10) Hallucinations omalizumab [From Xolair] Adverse Reaction (Severe, Verified 04/09/24 10:10) Anaphylaxis oxycodone Adverse Reaction (Severe, Verified 04/09/24 10:10) Hallucinations pneumococcal vaccine Adverse Reaction (Severe, Verified 04/09/24 10:10) Hives prednisone Adverse Reaction (Severe, Verified 04/09/24 10:10) Itching tramadol Adverse Reaction (Severe, Verified 04/09/24 10:10) Hives accolate Adverse Reaction (Severe, Uncoded 04/09/24 10:10) Chest Pain PCN Adverse Reaction (Severe, Uncoded 04/09/24 10:10) Hives HPI Comments Details: The patient is a 68-year-old woman with a known history of asthma in addition to obstructive sleep apnea. She has been noticing worsening respiratory symptoms. She was placed on singular as a steroid sparing agent. However, she developed symptoms of depression and had to come off. She is continued on Trelegy which appears to be helping her. The patient had been on Nucala in the past for severe asthma. However, she developed an allergic reaction as well and had to stop it. She has not tried any other biologic medications after that. The patient has not required any prednisone. She also has diabetes and would like to hold off on any significant steroids that can worsen her diabetes control. The patient does have underlying allergies at this point will go ahead and we check her allergies to further assess her potential triggers in order to control her asthma symptoms. The patient also has underlying sleep apnea. She has been having difficulties tolerating the CPAP therapy. Therefore she has not been using it regularly the patient also has a hard time sleeping. She has been using gabapentin with some partial improvement of her symptoms. She does complaint of restless leg. 12/14/2022 the patient is here for a pulmonary follow-up visit. She recently started day Dupixent. She did complain of significant muscle aches after the injections. I reassured her that this is the loading dose and then next dosages are going to be a lower dose and hopefully less symptoms. The body will take some time to adjust to the medication. The patient has been on significant amount of prednisone and she has a lot of allergies. I did reassure her that this injections not only going to help her now but also when she goes into the springtime and she deals with her severe asthma. On examination she is better she is not having any wheezing already from getting injections. In the meantime she has been using her CPAP. However, her CPAP is no longer functional. Shortening up by itself. She is also concerned because she is not been getting any supplies either. I will send a request for replacement machine especially since she has had this machine for well over 5 years. And now is nonfunctional and should be replaced. In addition to that she continue getting supplies readily specially since she is so adherent to her therapy. 03/25/2023 the patient is here for pulmonary follow-up visit. Overall the patient has been feeling little better. She did have COVID-19 recently. She did take packs over. It was hard medication for her to tolerate but she took it. She was having significant GI symptoms. Right now she is doing better although now developing worsening respiratory symptoms. Complains of chest congestion chest tightness. She has been using her nebulizer. She is also using her respiratory medications. On examination she does have some wheezing and rhonchi and diminished breath sounds. 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 Will go ahead and start her on a Medrol pack and also give her doxycycline. In the meantime the patient continues use her CPAP CPAP therapy continues to be affecting beneficial. She will go back to using more regularly once she is better from her viral syndrome. 07/24/2023 the patient is here for a pulmonary follow-up visit. She overall has been doing okay. She does have increase cough lately with this season change. Still has not required any prednisone or antibiotics. She continues on the Trelegy inhaler with good effect. Unfortunately her nebulizer is no longer working she does need a nebulizer. She has a new insurance so therefore her current DME company does not work with that new insurance and therefore would have to switch her to a new DME company. The patient needs a new nebulizer at this time. In addition to that she has been using the CPAP the CPAP therapy continues to be affecting beneficial she does use it for more than 4 hours a night. However, her DME company currently is not given her any supplies which is difficult for her. Therefore will going to submit a new prescription for supplies to another [employer] company that takes her current insurance. The patient will bring her machine in the next 6 months and will evaluate the machine to see if she needs a replacement CPAP at that time. She will receive the Prevnar vaccine today. She initially did have some dizziness with it but she did well after drinking some fluid in eating some crackers and she was able to go home. If she has any other adverse effects she can call the office. She is aware that this is a vaccine that is lifelong. The patient will continue her current respiratory therapy will follow-up in 6 months. 10/23/2023 the patient is here for a pulmonary follow-up visit. Apparently she was sick back close to the holidays. She had a hard time getting in to be seen. Therefore she stayed home and gave herself breathing treatments throughout the day and finally started feeling better after few days. She was concerned though that her breathing was significantly effective. The patient did not take any prednisone and she does not like to take prednisone because it causes her to have pleuritis and also elevated blood sugars. She is also struggling with her sleep. She does have a CPAP in the CPAP therapy has been very affecting beneficial for her in the past but now she does not get supplies from the DME company. Her machine now is older than 5 years therefore will see about getting her new machine them in more effective and then that weight getting her situated with the [employer]. Her Bonfield score is elevated at 10 over 24. She does have cardiovascular risk factors are treating his sleep apnea is important. The patient likely will require repeat home sleep study. Will reach out to her [employer] company to see if they need any other additional information in order to get a replacement machine at this time. In the meantime for her respiratory symptoms she does have increased wheezing therefore will send him medications with the pharmacy and will optimize her Trelegy by switching over to the 200 mcg dose for a month and then hopefully we can titrate her back down to the 100 mcg those. 03/27/2024 the patient is here for sick visit. She has been sick for about 3-4 days. She started developing increased chest tightness and cough. She is also felt weak. She felt some chills. She did call the office we do not have any availability we recommended she go to urgent care. She called again we sent her some medications in the meantime. We made an appointment for today. She has been feeling a little better since she started the Medrol Evelio and she also started the antibiotics, azithromycin. She is still coughing up significant amount of mucus. Greenish in color. She did have a sample that was sent. 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 She was treated with Bactrim for about 4 weeks. She tolerated the treatment well. Will go ahead and send also modified acid-fast for Nocardia. The patient is having significant wheezing on examination. We did provide her with 2 DuoNeb treatments and also that swab for RSV, flu and COVID-19. The result came back negative. She also had a chest x-ray which I personally reviewed which demonstrated some slight atelectasis to the left base suggesting bronchitis. Will go ahead and treat her for early pneumonia at this time. 04/09/2024 the patient is here for a pulmonary follow-up visit. She has now completed the prednisone. Her sugars were significantly elevated up to 500 while on the prednisone. The patient did call EMS but by the time they got there she did take insulin and had improved. She still having hard time with breathing. Significant shortness of breath even at rest. Moderate severity. She has been using the nebulizer every 3-4 hours. She continues on the Trelegy inhaler. Unfortunately exam she is still having significant wheezing and rhonchi. She did complete 2 courses of antibiotics. Her chest x-ray was fairly clear except for some areas of atelectasis. Will go ahead and request blood work specially because heart rate significantly elevated at 125. She will go ahead blood work including a D-dimer to make sure she does not have a risk of thromboembolic disease. She will need additional prednisone. Will try to split into [address] her sugars do not go as high. She will have to take insulin the meantime to maintain her sugars within reason. If her symptoms worsen she may need to go to the ER otherwise follow-up in 3-4 weeks. [facility] Medical History (Updated 04/09/24 @ 21:23 by Slick Diego MD) Tachycardia Osteoarthritis Diabetic peripheral neuropathy Diabetes GERD (gastroesophageal reflux disease) Venous insufficiency Vitamin D deficiency Urinary incontinence Insomnia Hypertriglyceridemia HTN (hypertension) Anxiety Depression Lumbar spondylosis Tubular adenoma Dyspnea Chronic restrictive lung disease Asthma TONY (obstructive sleep apnea) Surgical History History of hernia repair H/O: hysterectomy Hx of cholecystectomy History of section Hx of appendectomy History of ankle surgery Family History Father CHF (congestive heart failure) Mother CHF (congestive heart failure) Asthma Brother Asthma Social History Alcohol intake: never Patient Tobacco Use Status: Never used Tobacco Review of Systems Const Reports difficulty sleeping and Reports fatigue Eyes Denies change in vision ENT Denies change in voice, Reports nasal congestion and Reports nasal discharge Card Denies chest pain and Reports dyspnea on exertion Resp Reports chest congestion, Reports cough, Reports dyspnea on exertion and Reports wheezing GI Reports no additional complaints Musc Reports no additional complaints Skin/Breast Denies rash Neuro Reports no additional complaints Endo Reports fatigue Fernando/Lymph Denies easy bleeding Aller/Immun Reports wheezing Physical Exam Vital Signs: Last Vital Signs Pulse 90 04/09/24 10:09 Pulse Ox 97 04/09/24 10:09 Oxygen Delivery Method Room Air 04/09/24 10:09 BMI result Body Mass Index 33.4 Const General: comfortable HEENT Head: Yes normal to inspection Eyes General: appearance normal, both eyes and all related structures Neck Neck: Yes supple Chest Chest palpation & inspection: normal inspection of the chest Resp Effort & Inspection: normal respiratory effort Auscultation: rhonchi, wheezes and diminished lung sounds Cardio Rate: regular rate Rhythm: regular rhythm Heart sounds: S1 normal heart sound present and S2 normal heart sound present GI Inspection: Yes normal to inspection Extrem General: Yes no clubbing, cyanosis or edema Assessment & Plan Assessment & Plan (1) Cough: Code(s): R05.9 - Cough, unspecified Category: Medical Qualifiers: Cough type: subacute Qualified Code(s): R05.2 - Subacute cough (2) Dyspnea: Code(s): R06.00 - Dyspnea, unspecified Category: Medical Qualifiers: Dyspnea type: dyspnea on exertion Qualified Code(s): R06.09 - Other forms of dyspnea (3) Chest pain: Code(s): R07.9 - Chest pain, unspecified Category: Medical Qualifiers: Chest pain type: chest pain on breathing Qualified Code(s): R07.1 - Ch est pain on breathing (4) Tachycardia: Code(s): R00.0 - Tachycardia, unspecified Category: Medical (5) TONY (obstructive sleep apnea): Code(s): G47.33 - Obstructive sleep apnea (adult) (pediatric) Category: Medical Plan Add Budesonide BID low dose prednisone taper bloodwork continue Dupixent, monitor for parasthesias nebulizer. EpiPen available Continue Trelegy 100 mcg inhaler daily MEMO as needed continue Zyrtec avoid singular secondary to depressive symptoms APAP with supplies. Adjusted APAP 5-12, Will trial F30i medium. Home PSG to address TONY and reactivation F/U 3-4 weeks Orders: Orders Complete Blood Count Auto Diff Today R00.0 - Tachycardia, unspecified, R06.09 - Other forms of dyspnea, R07.9 - Chest pain, unspecified Basic Metabolic Panel Today R00.0 - Tachycardia, unspecified, R06.09 - Other forms of dyspnea, R07.9 - Chest pain, unspecified Venous Blood Gas Today G47.33 - Obstructive sleep apnea (adult) (pediatric) B Type Natriuretic Peptide Today R00.0 - Tachycardia, unspecified, R06.09 - Other forms of dyspnea, R07.9 - Chest pain, unspecified D Dimer High Sensitivity Today R00.0 - Tachycardia, unspecified, R06.09 - Other forms of dyspnea, R07.9 - Chest pain, unspecified Erythrocyte Sedimentation Rate Today R00.0 - Tachycardia, unspecified, R06.09 - Other forms of dyspnea, R07.9 - Chest pain, unspecified Troponin-I High Sensitivity Today R00.0 - Tachycardia, unspecified, R06.09 - Other forms of dyspnea, R07.9 - Chest pain, unspecified Medications: New budesonide 0.5 mg (2 mL) inhalation BID 120 mL 11RF 30 days J44.9 - Chronic obstructive pulmonary disease, unspecified prednisone PO daily; Take 2 tab po BID x 7 days, then 1 tab Po BID x 7 days, then 1 tab daily x 7 days 49 tabs 0RF 21 days Coding Level of Care Code Est Pt Level 4 (73355) Diagnoses Subacute cough R05.2 Cough type: subacute Dyspnea on exertion R06.09 Dyspnea type: dyspnea on exertion Chest pain on breathing R07.1 Chest pain type: chest pain on breathing Tachycardia R00.0 TONY (obstructive sleep apnea) G47.33 Time Spent (min) 16
[2024-04-09 10:09] VITALS: PULSE 90; O2SAT 97; BMI 33.4
== END 2024-04-09 10:45 | disposition home or self-care (01) ==
PROVIDERS: PCP Internal Medicine; Visit Provider Hospitalist
DX: R05.2 Subacute cough (principal); R06.09 Other forms of dyspnea; R07.1 Chest pain on breathing; R00.0 Tachycardia, unspecified; G47.33 Obstructive sleep apnea (adult) (pediatric)
CPT/HCPCS: 99214

== ENCOUNTER 2024-04-09 10:04 | Outpatient (REF) | payer OTHER, SELFPAY ==
[2024-04-09 11:19] LABS: MANUAL DIFF FLAG NO
[2024-04-09 11:22] LABS: Basophils Percent Auto 0.4 % (0-2); Eosinophils Absolute Auto 0.1 X10*3/uL (0.0-0.4); Eosinophils Percent Auto 0.8 % (0-4); Hematocrit 40.4 % (37.0-47.0); Hemoglobin 13.7 g/dl (12.0-16.0); Imm Gran Abs Auto 0.03 X10*3/uL (0.00-0.03); Imm Gran Pct Auto 0.4 % (0.0-0.4); Lymphocytes Absolute Auto 2.7 X10*3/uL (1.2-4.9); Lymphocytes Percent Auto 32.7 % (20-40); Mean Corpuscular HGB Conc 33.9 g/dl (31.0-35.0); Mean Corpuscular Hemoglobin 30.7 pg (27.0-33.0); Mean Corpuscular Volume 90.6 fL (80.0-98.0); Mean Platelet Volume 10.1 fL (9.4-12.3); Monocytes Absolute Auto 0.6 X10*3/uL (0.1-1.2); Monocytes Percent Auto 6.6 % (2-11); Neutrophils Percent Auto 59.1 % (45-73); Platelet Count 181 X10*3/uL (160-400); Red Blood Count 4.46 X10*6/uL (4.20-5.50); Red Cell Distribution Width 12.8 % (11.0-16.0); White Blood Count 8.4 X10*3/uL (4.8-10.8)
[2024-04-09 11:26] LABS: VBG Base Excess 4.3 mmol/L; VBG HCO3 28 mmol/L (22-26); VBG pCO2 42 mmHg; VBG pH 7.44 (7.32-7.43); VBG pO2 45 mmHg; Venous Blood Gas Refer to POC result
[2024-04-09 11:33] LABS: D Dimer High Sensitivity < 150 NG/ML
[2024-04-09 11:36] LABS: Anion Gap 10 (12-20); Blood Urea Nitrogen 17 mg/dL (9-16); Calcium 9.8 mg/dL (8.4-10.2); Carbon Dioxide 31 mmol/L (22-29); Chloride 102 mmol/L (96-108); Estimated Glomerular Filt Rate > 60; Glucose Random 273 mg/dL (60-115); Potassium 3.6 mmol/L (3.3-5.1); Sodium 139 mmol/L (135-145)
[2024-04-09 11:42] LABS: B Type Natriuretic Peptide < 10 pg/mL (<100)
[2024-04-09 11:48] LABS: Troponin-I High Sensitivity < 2.7 ng/L (<3.5-17.0)
[2024-04-09 12:10] LABS: Erythrocyte Sedimentation Rate 6 MM/HR (0-20)
== END 2024-04-09 10:05 | disposition home or self-care (01) ==
LOC: HO.LAB 10:04
PROVIDERS: PCP Internal Medicine; Visit Provider Hospitalist
DX: J44.9 Chronic obstructive pulmonary disease, unspecified (principal); R05.2 Subacute cough; G47.33 Obstructive sleep apnea (adult) (pediatric); R06.09 Other forms of dyspnea; R07.1 Chest pain on breathing; R00.0 Tachycardia, unspecified; R07.9 Chest pain, unspecified
CPT/HCPCS: 36415; 80048; 82803; 83880; 84484; 85025; 85379; 85652; 99212

== ENCOUNTER 2024-04-20 10:46 | Outpatient (AMB) | payer OTHER, SELFPAY ==
[2024-04-20 11:13] VITALS: PULSE 90; O2SAT 97; BMI 33.3
--- NOTE | 2024-04-20 11:13 | A.OFFVIS_ITS ---
Vital Signs 04/20/24 11:13 Height 5 ft 4 in Weight 194 lb 0.108 oz BMI 33.3 Pulse 90 Pulse Source Pulse Oximeter Pulse Oximetry (%) 97 Oxygen Delivery Method Room Air Intake Visit Reasons: Obstructive sleep apnea follow-up Speech Teacher Required: No Allergies naproxen Allergy (Severe, Verified 04/20/24 11:17) Hives acetaminophen [From Percocet] Adverse Reaction (Severe, Verified 04/20/24 11:17) Hallucinations aspirin Adverse Reaction (Severe, Verified 04/20/24 11:17) Hives codeine Adverse Reaction (Severe, Verified 04/20/24 11:17) Itching ibuprofen [From Motrin IB] Adverse Reaction (Severe, Verified 04/20/24 11:17) Hives Iodinated Contrast Media Adverse Reaction (Severe, Verified 04/20/24 11:17) Hypertension mepolizumab [From Nucala] Adverse Reaction (Severe, Verified 04/20/24 11:17) Itching metformin Adverse Reaction (Severe, Verified 04/20/24 11:17) Difficulty Breathing montelukast [From Singulair] Adverse Reaction (Severe, Verified 04/20/24 11:17) Anxiety morphine Adverse Reaction (Severe, Verified 04/20/24 11:17) Hallucinations omalizumab [From Xolair] Adverse Reaction (Severe, Verified 04/20/24 11:17) Anaphylaxis oxycodone Adverse Reaction (Severe, Verified 04/20/24 11:17) Hallucinations pneumococcal vaccine Adverse Reaction (Severe, Verified 04/20/24 11:17) Hives prednisone Adverse Reaction (Severe, Verified 04/20/24 11:17) Itching tramadol Adverse Reaction (Severe, Verified 04/20/24 11:17) Hives accolate Adverse Reaction (Severe, Uncoded 04/20/24 11:17) Chest Pain PCN Adverse Reaction (Severe, Uncoded 04/20/24 11:17) Hives HPI Comments Details: The patient is a 68-year-old woman with a known history of asthma in addition to obstructive sleep apnea. She has been noticing worsening respiratory symptoms. She was placed on singular as a steroid sparing agent. However, she developed symptoms of depression and had to come off. She is continued on Trelegy which appears to be helping her. The patient had been on Nucala in the past for severe asthma. However, she developed an allergic reaction as well and had to stop it. She has not tried any other biologic medications after that. The patient has not required any prednisone. She also has diabetes and would like to hold off on any significant steroids that can worsen her diabetes control. The patient does have underlying allergies at this point will go ahead and we ch yoselin her allergies to further assess her potential triggers in order to control her asthma symptoms. The patient also has underlying sleep apnea. She has been having difficulties tolerating the CPAP therapy. Therefore she has not been using it regularly the patient also has a hard time sleeping. She has been using gabapentin with some partial improvement of her symptoms. She does complaint of restless leg. 12/14/2022 the patient is here for a pulmonary follow-up visit. She recently started day Dupixent. She did complain of significant muscle aches after the injections. I reassured her that this is the loading dose and then next dosages are going to be a lower dose and hopefully less symptoms. The body will take some time to adjust to the medication. The patient has been on significant amount of prednisone and she has a lot of allergies. I did reassure her that this injections not only going to help her now but also when she goes into the springtime and she deals with her severe asthma. On examination she is better she is not having any wheezing already from getting injections. In the meantime she has been using her CPAP. However, her CPAP is no longer functional. Torri rtening up by itself. She is also concerned because she is not been getting any supplies either. I will send a request for replacement machine especially since she has had this machine for well over 5 years. And now is nonfunctional and should be replaced. In addition to that she continue getting supplies readily specially since she is so adherent to her therapy. 03/25/2023 the patient is here for pulmonary follow-up visit. Overall the patient has been feeling little better. She did have COVID-19 recently. She did take packs over. It was hard medication for her to tolerate but she took it. She was having significant GI symptoms. Right now she is doing better although now developing worsening respiratory symptoms. Complains of chest congestion chest tightness. She has been using her nebulizer. She is also using her respiratory medications. On examination she does have some wheezing and rhonchi and diminished breath sounds. 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 Will go ahead and start her on a Medrol pack and also give her doxycycline. In the meantime the patient continues use her CPAP CPAP therapy continues to be affecting beneficial. She will go back to using more regularly once she is better from her viral syndrome. 07/24/2023 the patient is here for a pulmonary follow-up visit. She overall has been doing okay. She does have increase cough lately with this season change. Still has not required any prednisone or antibiotics. She continues on the Trelegy inhaler with good effect. Unfortunately her nebulizer is no longer working she does need a nebulizer. She has a new insurance so therefore her current DME company does not work with that new insurance and therefore would have to switch her to a new DME company. The patient needs a new nebulizer at this time. In addition to that she has been using the CPAP the CPAP therapy continues to be affecting beneficial she does use it for more than 4 hours a night. However, her DME company currently is not given her any supplies which is difficult for her. Therefore will going to submit a new prescription for supplies to another [employer] company that takes her current insurance. The patient will bring her machine in the next 6 months and will evaluate the machine to see if she needs a replacement CPAP at that time. She will receive the Prevnar vaccine today. She initially did have some dizziness with it but she did well after drinking some fluid in eating some crackers and she was able to go home. If she has any other adverse effects she can call the office. She is aware that this is a vaccine that is lifelong. The patient will continue her current respiratory therapy will follow-up in 6 months. 10/23/2023 the patient is here for a pulmonary follow-up visit. Apparently she was sick back close to the holidays. She had a hard time getting in to be seen. Therefore she stayed home and gave herself breathing treatments throughout the day and finally started feeling better after few days. She was concerned though that her breathing was significantly effective. The patient did not take any prednisone and she does not like to take prednisone because it causes her to have pleuritis and also elevated blood sugars. She is also struggling with her sleep. She does have a CPAP in the CPAP therapy has been very affecting beneficial for her in the past but now she does not get supplies from the DME company. Her machine now is older than 5 years therefore will see about getting her new machine them in more effective and then that weight getting her situated with the Lumexis. Her [place] score is elevated at 10 over 24. She does have cardiovascular risk factors are treating his sleep apnea is important. The patient likely will require repeat home sleep study. Will reach out to her [employer] company to see if they need any other additional information in order to get a replacement machine at this time. In the meantime for her respiratory symptoms she does have increased wheezing therefore will send him medications with the pharmacy and will optimize her Trelegy by switching over to the 200 mcg dose for a month and then hopefully we can titrate her back down to the 100 mcg those. 03/27/2024 the patient is here for sick visit. She has been sick for about 3-4 days. She started developing increased chest tightness and cough. She is also felt weak. She felt some chills. She did call the office we do not have any availability we recommended she go to urgent care. She called again we sent her some medications in the meantime. We made an appointment for today. She has been feeling a little better since she started the Medrol Evelio and she also started the antibiotics, azithromycin. She is still coughing up significant am ount of mucus. Greenish in color. She did have a sample that was sent. 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 She was treated with Bactrim for about 4 weeks. She tolerated the treatment well. Will go ahead and send also modified acid-fast for Nocardia. The patient is having significant wheezing on examination. We did provide her with 2 DuoNeb treatments and also that swab for RSV, flu and COVID-19. The result came back negative. She also had a chest x-ray which I personally reviewed which demonstrated some slight atelectasis to the left base suggesting bronchitis. Will go ahead and treat her for early pneumonia at this time. 04/09/2024 the patient is here for a pulmonary follow-up visit. She has now completed the prednisone. Her sugars were significantly elevated up to 500 while on the prednisone. The patient did call EMS but by the time they got there she did take insulin and had improved. She still having hard time with breathing. Significant shortness of breath even at rest. Moderate severity. She has been using the nebulizer every 3-4 hours. She continues on the Trelegy inhaler. Unfortunately exam she is still having significant wheezing and rhonchi. She did complete 2 courses of antibiotics. Her chest x-ray was fairly clear except for some areas of atelectasis. Will go ahead and request blood work specially because heart rate significantly elevated at 125. She will go ahead blood work including a D-dimer to make sure she does not have a risk of thromboembolic disease. She will need additional prednisone. Will try to split into [address] her sugars do not go as high. She will have to take insulin the meantime to maintain her sugars within reason. If her symptoms worsen she may need to go to the ER otherwise follow-up in 3-4 weeks. 04/20/2024 the patient is here for a follow-up visit. She had a hard few months. Her asthma has been uncontrolled. Unfortunately she also has uncontrolled diabetes making it difficult to give her prednisone. We tried maximizing her respiratory therapy by adding budesonide. She has been in the Trelegy. Still having significant wheezing. Also chest congestion removed some greenish phlegm out of her lungs. Will go ahead and try to further adjust her in respiratory therapy by placing her on Brovana in continue the budesonide and then adding Inc ruse and moving the Trelegy. Hopefully with the nebulized therapy providing further bronchodilation deeper into the airways. In addition to that the patient will be starting on theophylline. She understands the adverse effects of theophylline. Specialist stimulant. She is going to monitor closely any symptoms. She can not tolerated she is going to back off and call me. The patient also will have theophylline levels checked in the coming weeks. I am hopeful though that with the theophylline she will start feeling better. She also continues on Dupixent injections every 2 weeks. If the patient is not getting any better very aggressive respiratory regimen will talk about considering bronchoscopy to rule out deep respiratory infections. And if no infections are warranted then at that point consider changing her biologic to test prior. Will reassess in 2-3 weeks. [facility] Medical History (Updated 04/09/24 @ 21:23 by Slick Diego MD) Tachycardia Osteoarthritis Diabetic peripheral neuropathy Diabetes GERD (gastroesophageal reflux disease) Venous insufficiency Vitamin D deficiency Urinary incontinence Insomnia Hypertriglyceridemia HTN (hypertension) Anxiety Depression Lumbar spondylosis Tubular adenoma Dyspnea Chronic restrictive lung disease Asthma TONY (obstructive sleep apnea) Surgical History History of hernia repair H/O: hysterectomy Hx of cholecystectomy History of section Hx of appendectomy History of ankle surgery Family History Father CHF (congestive heart failure) Mother CHF (congestive heart failure) Asthma Brother Asthma Social History Alcohol intake: never Patient Tobacco Use Status: Never used Tobacco Review of Systems Const Reports difficulty sleeping and Reports fatigue Eyes Denies change in vision ENT Denies change in voice, Reports nasal congestion and Reports nasal discharge Card Denies chest pain and Reports dyspnea on exertion Resp Reports chest congestion, Reports cough, Reports dyspnea on exertion and Reports wheezing GI Reports no additional complaints Musc Reports no additional complaints Skin/Breast Denies rash Neuro Reports no additional complaints Endo Reports fatigue Fernando/Lymph Denies easy bleeding Aller/Immun Reports wheezing Physical Exam Vital Signs: Last Vital Signs Pulse 90 04/20/24 11:13 Pulse Ox 97 04/20/24 11:13 Oxygen Delivery Method Room Air 04/20/24 11:13 BMI result Body Mass Index 33.3 Const General: comfortable HEENT Head: Yes normal to inspection Eyes General: appearance normal, both eyes and all related structures Neck Neck: Yes supple Chest Chest palpation & inspection: normal inspection of the chest Resp Effort & Inspection: normal respiratory effort Auscultation: rhonchi, wheezes and diminished lung sounds Cardio Rate: regular rate Rhythm: regular rhythm Heart sounds: S1 normal heart sound present and S2 normal heart sound present GI Inspection: Yes normal to inspection Extrem General: Yes no clubbing, cyanosis or edema Assessment & Plan Assessment & Plan (1) Asthma: Code(s): J45.909 - Unspecified asthma, uncomplicated Category: Medical Qualifiers: Asthma severity: severe Asthma persistence: persistent Asthma complication type: uncomplicated Qualified Code(s): J45.50 - Severe persistent asthma, uncomplicated (2) Cough: Code(s): R05.9 - Cough, unspecified Category: Medical Qualifiers: Cough type: subacute Qualified Code(s): R05.2 - Subacute cough (3) Dyspnea: Code(s): R06.00 - Dyspnea, unspecified Category: Medical Qualifiers: Dyspnea type: dyspnea on exertion Qualified Code(s): R06.09 - Other fo ronda of dyspnea (4) TONY (obstructive sleep apnea): Code(s): G47.33 - Obstructive sleep apnea (adult) (pediatric) Category: Medical (5) Chronic restrictive lung disease: Code(s): J98.4 - Other disorders of lung Category: Medical (6) Dyspnea: Code(s): R06.00 - Dyspnea, unspecified Category: Medical Qualifiers: Dyspnea type: dyspnea on exertion Qualified Code(s): R06.09 - Other forms of dyspnea Plan continue Budesonide BID start Brovana stop Trelegy start Incruse start theophylline, Theophylline levels in 1-2 weeks continue Dupixent, consider Teazsipre nebulizer. EpiPen available MEMO as needed continue Zyrtec avoid singular secondary to depressive symptoms APAP with supplies. Adjusted APAP 5-12, Will trial F30i medium. Home PSG to address TONY and reactivation F/U 3-4 weeks Orders: Orders Theophylline Today J45.51 - Severe persistent asthma with (acute) exacerbation Medications: New theophylline ER 300 mg PO Q12H 60 tabs 6RF 30 days arformoterol (Brovana) 2 mL inhalation Q12H 120 mL 11RF 30 days J44.9 - Chronic obstructive pulmonary disease, unspecified umeclidinium 62.5 mcg/actuation (Incruse Ellipta) 1 inh inhalation DAILY 30 ea 11RF 30 days J45.909 - Unspecified asthma, uncomplicated Coding Level of Care Code Est Pt Level 4 (19909) Complex EM visit Add On G2211 Diagnoses Severe persistent asthma without complication J45.50 Asthma severity: severe Asthma persistence: persistent Asthma complication type: uncomplicated Subacute cough R05.2 Cough type: subacute Dyspnea on exertion R06.09 Dyspnea type: dyspnea on exertion TONY (obstructive sleep apnea) G47.33 Chronic restrictive lung disease J98.4 Time Spent (min) 18
== END 2024-04-20 11:38 | disposition home or self-care (01) ==
PROVIDERS: PCP Internal Medicine; Visit Provider Hospitalist
DX: J45.50 Severe persistent asthma, uncomplicated (principal); R05.2 Subacute cough; R06.09 Other forms of dyspnea; G47.33 Obstructive sleep apnea (adult) (pediatric); J98.4 Other disorders of lung
CPT/HCPCS: 99214; G2211

== ENCOUNTER → 2024-04-20 10:46 | Outpatient (BNVA) | payer OTHER, SELFPAY | PROVIDERS: PCP Internal Medicine; Visit Provider Hospitalist | DX: J45.50 Severe persistent asthma, uncomplicated (principal); J98.4 Other disorders of lung; R05.2 Subacute cough; R06.09 Other forms of dyspnea; G47.33 Obstructive sleep apnea (adult) (pediatric) | CPT/HCPCS: 99212 ==

== ENCOUNTER 2024-05-07 09:54 | Outpatient (AMB) | payer OTHER, SELFPAY ==
[2024-05-07 09:57] VITALS: BP 122/67; PULSE 113; O2SAT 96; BMI 36.1
--- NOTE | 2024-05-07 09:57 | A.OFFVIS_ITS ---
Vital Signs 05/07/24 09:57 Height 5 ft 4 in Weight 210 lb 8.663 oz BMI 36.1 BP 122/67 Blood Pressure Location Rt brachial Position Sitting Pulse 113 H Pulse Source Doppler Pulse Oximetry (%) 96 Oxygen Delivery Method Room Air Intake Visit Reasons: Obstructive sleep apnea Intake Note: Patient requesting script for Roflumilast 250mg Allergies naproxen Allergy (Severe, Verified 05/07/24 10:01) Hives acetaminophen [From Percocet] Adverse Reaction (Severe, Verified 05/07/24 10:01) Hallucinations aspirin Adverse Reaction (Severe, Verified 05/07/24 10:01) Hives codeine Adverse Reaction (Severe, Verified 05/07/24 10:01) Itching ibuprofen [From Motrin IB] Adverse Reaction (Severe, Verified 05/07/24 10:01) Hives Iodinated Contrast Media Adverse Reaction (Severe, Verified 05/07/24 10:01) Hypertension mepolizumab [From Nucala] Adverse Reaction (Severe, Verified 05/07/24 10:01) Itching metformin Adverse Reaction (Severe, Verified 05/07/24 10:01) Difficulty Breathing montelukast [From Singulair] Adverse Reaction (Severe, Verified 05/07/24 10:01) Anxiety morphine Adverse Reaction (Severe, Verified 05/07/24 10:01) Hallucinations omalizumab [From Xolair] Adverse Reaction (Severe, Verified 05/07/24 10:01) Anaphylaxis oxycodone Adverse Reaction (Severe, Verified 05/07/24 10:01) Hallucinations pneumococcal vaccine Adverse Reaction (Severe, Verified 05/07/24 10:01) Hives prednisone Adverse Reaction (Severe, Verified 05/07/24 10:01) Itching tramadol Adverse Reaction (Severe, Verified 05/07/24 10:01) Hives accolate Adverse Reaction (Severe, Uncoded 04/20/24 11:17) Chest Pain PCN Adverse Reaction (Severe, Uncoded 04/20/24 11:17) Hives HPI Comments Details: The patient is a 68-year-old woman with a known history of asthma in addition to obstructive sleep apnea. She has been noticing worsening respiratory symptoms. She was placed on singular as a steroid sparing agent. However, she developed symptoms of depression and had to come off. She is continued on Trelegy which appears to be helping her. The patient had been on Nucala in the past for severe asthma. However, she developed an allergic reaction as well and had to stop it. She has not tried any other biologic medications after that. The patient has not required any prednisone. She also has diabetes and would like to hold off on any significant steroids that can worsen her diabetes control. The patient does have underlying allergies at this point will go ahead and we check her allergies to further assess her potential triggers in order to control her asthma symptoms. The patient also has underlying sleep apnea. She has been having difficulties tolerating the CPAP therapy. Therefore she has not been using it regularly the patient also has a hard time sleeping. She has been using gabapentin with some partial improvement of her symptoms. She does complaint of restless leg. 10/23/2023 the patient is here for a pulmonary follow-up visit. Apparently she was sick back close to the holidays. She had a hard time getting in to be seen. Therefore she stayed home and gave herself breathing treatments throughout the day and finally started feeling better after few days. She was concerned though that her breathing was significantly effective. The patient did not take any prednisone and she does not like to take prednisone because it causes her to have pleuritis and also elevated blood sugars. She is also struggling with her sleep. She does have a CPAP in the CPAP therapy has been very affecting beneficial for her in the past but now she does not get supplies from the [employer] Her machine now is older than 5 years therefore will see about getting her new machine them in more effective and then that weight getting her situated with the [employer] company. Her Hunter score is elevated at 10 over 24. She does have cardiovascular risk factors are treating his sleep apnea is important. The patient likely will require repeat home sleep study. Will reach out to her [employer] company to see if they need any other additional information in order to get a replacement machine at this time. In the meantime for her respiratory symptoms she does have increased wheezing therefore will send him medications with the pharmacy and will optimize her Trelegy by switching over to the 200 mcg dose for a month and then hopefully we can titrate her back down to the 100 mcg those. 03/27/2024 the patient is here for sick visit. She has been sick for about 3-4 days. She started developing increased chest tightness and cough. She is also felt weak. She felt some chills. She did call the office we do not have any availability we recommended she go to urgent care. She called again we sent her some medications in the meantime. We made an appointment for today. She has been feeling a little better since she started the Medrol Evelio and she also started the antibiotics, azithromycin. She is still coughing up significant amount of mucus. Greenish in color. She did have a sample that was sent. 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 She was treated with Bactrim for about 4 weeks. She tolerated the treatment well. Will go ahead and send also modified acid-fast for Nocardia. The patient is having significant wheezing on examination. We did provide her with 2 DuoNeb treatments and also that swab for RSV, flu and COVID-19. The result came back negative. She also had a chest x-ray which I personally reviewed which demonstrated some slight atelectasis to the left base suggesting bronchitis. Will go ahead and treat her for early pneumonia at this time. 04/09/2024 the patient is here for a pulmonary follow-up visit. She has now completed the prednisone. Her sugars were significantly elevated up to 500 while on the prednisone. The patient did call EMS but by the time they got there she did take insulin and had improved. She still having hard time with breathing. Significant shortness of breath even at rest. Moderate severity. She has been using the nebulizer every 3-4 hours. She continues on the Trelegy inhaler. Unfortunately exam she is still having significant wheezing and rhonchi. She did complete 2 courses of antibiotics. Her chest x-ray was fairly clear except for some areas of atelectasis. Will go ahead and request blood work specially because heart rate significantly elevated at 125. She will go ahead blood work including a D-dimer to make sure she does not have a risk of thromboembolic disease. She will need additional prednisone. Will try to split into [address] her sugars do not go as high. She will have to take insulin the meantime to maintain her sugars within reason. If her symptoms worsen she may need to go to the ER otherwise follow-up in 3-4 weeks. 04/20/2024 the patient is here for a follow-up visit. She had a hard few months. Her asthma has been uncontrolled. Unfortunately she also has uncontrolled diabetes making it difficult to give her prednisone. We tried maximizing her respiratory therapy by adding budesonide. She has been in the Trelegy. Still having significant wheezing. Also chest congestion removed some greenish phlegm out of her lungs. Will go ahead and try to further adjust her in respiratory therapy by placing her on Brovana in continue the budesonide and then adding Incruse and moving the Trelegy. Hopefully with the nebulized therapy providing further bronchodilation deeper into the airways. In addition to that the patient will be starting on theophylline. She understands the adverse effects of theophylline. Specialist stimulant. She is going to monitor closely any symptoms. She can not tolerated she is going to back off and call me. The patient also will have theophylline levels checked in the coming weeks. I am hopeful though that with the theophylline she will start feeling better. She also continues on Dupixent injections every 2 weeks. If the patient is not getting any better very aggressive respiratory regimen will talk about considering bronchoscopy to rule out deep respiratory infections. And if no infections are warranted then at that point consider changing her biologic to test prior. Will reassess in 2-3 weeks. 05/07/2024 the patient is here for pulmonary follow-up visit. Overall she is doing better from a respiratory status. She did complete the prednisone which is reassuring. The patient has been on the nebulized therapy with some improvement. She did not brass pickler the theophylline as it was not the pharmacy. At this point since her respiratory status is better will hold off on the as well. She does have difficulty sleeping. She is having significant restlessness. She is already taking gabapentin. I will give her higher dose at nighttime so she can sleep a little better. She is having some neuropathy issues. She will follow-up with her primary care doctor regarding that. In the meantime she continues with the Dupixent injections. Will continue to see her progress. If the patient continues to have underlying respiratory issues will consider switching her over to Tezspire. Also, we can always consider theophylline the future. [facility] Medical History (Updated 05/07/24 @ 20:57 by Slick Diego MD) Tachycardia Osteoarthritis Diabetic peripheral neuropathy Diabetes GERD (gastroesophageal reflux disease) Venous insufficiency Vitamin D deficiency Urinary incontinence Insomnia Hypertriglyceridemia HTN (hypertension) Anxiety Depression Lumbar spondylosis Tubular adenoma Dyspnea Chronic restrictive lung disease Asthma TONY (obstructive sleep apnea) Surgical History History of hernia repair H/O: hysterectomy Hx of cholecystectomy History of section Hx of appendectomy History of ankle surgery Family History Father CHF (congestive heart failure) Mother CHF (congestive heart failure) Asthma Brother Asthma Social History Alcohol intake: never Patient Tobacco Use Status: Never used Tobacco Review of Systems Const Reports difficulty sleeping and Reports fatigue Eyes Denies change in vision ENT Denies change in voice, Reports nasal congestion and Reports nasal discharge Card Denies chest pain Resp Denies chest congestion, Reports cough and Reports wheezing GI Reports no additional complaints Musc Reports no additional complaints and Reports tingling Skin/Breast Denies rash Neuro Reports no additional complaints, Reports restless legs, Reports tingling and Reports paresthesias Endo Reports fatigue Fernando/Lymph Denies easy bleeding Aller/Immun Reports wheezing Physical Exam Vital Signs: Last Vital Signs Pulse 113 H 05/07/24 09:57 BP 122/67 05/07/24 09:57 Pulse Ox 96 05/07/24 09:57 Oxygen Delivery Method Room Air 05/07/24 09:57 BMI result Body Mass Index 36.1 Assessment & Plan Assessment & Plan (1) Asthma: Code(s): J45.909 - Unspecified asthma, uncomplicated Category: Medical Qualifiers: Asthma severity: severe Asthma persistence: persistent Asthma complication type: with acute exacerbation Qualified Code(s): J45.51 - Severe persistent asthma with (acute) exacerbation (2) Cough: Code(s): R05.9 - Cough, unspecified Category: Medical Qualifiers: Cough type: subacute Qualified Code(s): R05.2 - Subacute cough (3) TONY (obstructive sleep apnea): Code(s): G47.33 - Obstructive sleep apnea (adult) (pediatric) Category: Medical (4) Insomnia: Code(s): G47.00 - Insomnia, unspecified Category: Medical Qualifiers: Insomnia type: primary Qualified Code(s): F51.01 - Primary insomnia Plan continue Budesonide BID continue Brovana continue Incruse hold theophylline, Theophylline levels in 1-2 weeks continue Dupixent, consider Teazsipre nebulizer. EpiPen available MEMO as needed continue Zyrtec increase gabapentin at night 600-900mg avoid singular secondary to depressive symptoms APAP with supplies. Adjusted APAP 5-12, Will trial F30i medium. Home PSG to address TONY and reactivation F/U 3-4 months Medications: New roflumilast (Daliresp) 500 mcg PO DAILY 30 tabs 6RF 30 days compress.stocking,knee,reg,med 15-20 cm/H2O 2 ea 0RF I89.0 - Lymphedema, not elsewhere classified Changed From gabapentin 1 cap in am, 1 cap at noon, 2 caps at night. 300 mg PO BID To gabapentin 1 cap in am, 1 cap at noon, 3 caps at night. 300 mg PO TID 120 caps 6RF 30 days Coding Level of Care Code Est Pt Level 4 (24474) Complex EM visit Add On G2211 Diagnoses Severe persistent asthma with acute exacerbation J45.51 Asthma severity: severe Asthma persistence: persistent Asthma complication type: with acute exacerbation Subacute cough R05.2 Cough type: subacute TONY (obstructive sleep apnea) G47.33 Primary insomnia F51.01 Insomnia type: primary Time Spent (min) 16
== END 2024-05-07 10:28 | disposition home or self-care (01) ==
PROVIDERS: PCP Internal Medicine; Visit Provider Hospitalist
DX: J45.51 Severe persistent asthma with (acute) exacerbation (principal); R05.2 Subacute cough; G47.33 Obstructive sleep apnea (adult) (pediatric); F51.01 Primary insomnia
CPT/HCPCS: 99214; G2211

== ENCOUNTER → 2024-05-07 09:54 | Outpatient (BNVA) | payer OTHER, SELFPAY | PROVIDERS: PCP Internal Medicine; Visit Provider Hospitalist | DX: J45.51 Severe persistent asthma with (acute) exacerbation (principal); G47.33 Obstructive sleep apnea (adult) (pediatric); R05.2 Subacute cough; F51.01 Primary insomnia | CPT/HCPCS: 99212 ==

== ENCOUNTER 2024-08-03 11:18 | Outpatient (AMB) | payer OTHER, SELFPAY ==
[2024-08-03 11:13] VITALS: BP 110/84; PULSE 118; O2SAT 97; BMI 35.7
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
== END 2024-08-03 12:55 | disposition home or self-care (01) ==
PROVIDERS: PCP Internal Medicine; Visit Provider Physician Assistant Medical
DX: G43.009 Migraine without aura, not intractable, without status migrainosus (principal); G47.33 Obstructive sleep apnea (adult) (pediatric); R53.83 Other fatigue
CPT/HCPCS: 99214

== ENCOUNTER → 2024-08-03 11:18 | Outpatient (BNVA) | payer OTHER, SELFPAY | PROVIDERS: PCP Internal Medicine; Visit Provider Nurse Practitioner Family | DX: G43.009 Migraine without aura, not intractable, without status migrainosus (principal); G47.33 Obstructive sleep apnea (adult) (pediatric); R53.83 Other fatigue; R20.2 Paresthesia of skin | CPT/HCPCS: 99212 ==

== ENCOUNTER 2024-08-12 11:21 | Outpatient (AMB) | payer OTHER, SELFPAY ==
[2024-08-12 11:23] VITALS: BP 124/82; PULSE 100; O2SAT 98; BMI 34.8
--- NOTE | 2024-08-12 11:23 | A.OFFVIS_ITS ---
Vital Signs 08/12/24 11:23 Height 5 ft 4 in Weight 202 lb 13.204 oz BMI 34.8 BP 124/82 Blood Pressure Location Rt brachial Position Sitting Pulse 100 Pulse Source Pulse Oximeter Pulse Oximetry (%) 98 Oxygen Delivery Method Room Air Intake Visit Reasons: Obstructive sleep apnea Image Archivist: Image Archivist offered & declined Accompanied by: Self / Same As Patient Allergies naproxen Allergy (Severe, Verified 08/12/24 11:31) Hives acetaminophen [From Percocet] Adverse Reaction (Severe, Verified 08/12/24 11:31) Hallucinations aspirin Adverse Reaction (Severe, Verified 08/12/24 11:31) Hives codeine Adverse Reaction (Severe, Verified 08/12/24 11:31) Itching ibuprofen [From Motrin IB] Adverse Reaction (Severe, Verified 08/12/24 11:31) Hives Iodinated Contrast Media Adverse Reaction (Severe, Verified 08/12/24 11:31) Hypertension mepolizumab [From Nucala] Adverse Reaction (Severe, Verified 08/12/24 11:31) Itching metformin Adverse Reaction (Severe, Verified 08/12/24 11:31) Difficulty Breathing montelukast [From Singulair] Adverse Reaction (Severe, Verified 08/12/24 11:31) Anxiety morphine Adverse Reaction (Severe, Verified 08/12/24 11:31) Hallucinations omalizumab [From Xolair] Adverse Reaction (Severe, Verified 08/12/24 11:31) Anaphylaxis oxycodone Adverse Reaction (Severe, Verified 08/12/24 11:31) Hallucinations pneumococcal vaccine Adverse Reaction (Severe, Verified 08/12/24 11:31) Hives prednisone Adverse Reaction (Severe, Verified 08/12/24 11:31) Itching tramadol Adverse Reaction (Severe, Verified 08/12/24 11:31) Hives accolate Adverse Reaction (Severe, Uncoded 08/12/24 11:31) Chest Pain PCN Adverse Reaction (Severe, Uncoded 08/12/24 11:31) Hives HPI Comments Details: The patient is a 68-year-old woman with a known history of asthma in addition to obstructive sleep apnea. She has been noticing worsening respiratory symptoms. She was placed on singular as a steroid sparing agent. However, she developed symptoms of depression and had to come off. She is continued on Trelegy which appears to be helping her. The patient had been on Nucala in the past for severe asthma. However, she developed an allergic reaction as well and had to stop it. She has not tried any other biologic medications after that. The patient has not required any prednisone. She also has diabetes and would like to hold off on any significant steroids that can worsen her diabetes control. The patient does have underlying allergies at this point will go ahead and we check her allergies to further assess her potential triggers in order to control her asthma symptoms. The patient also has underlying sleep apnea. She has been having difficulties tolerating the CPAP therapy. Therefore she has not been using it regularly the patient also has a hard time sleeping. She has been using gabapentin with some partial improvement of her symptoms. She does complaint of restless leg. 10/23/2023 the patient is here for a pulmonary follow-up visit. Apparently she was sick back close to the holidays. She had a hard time getting in to be seen. Therefore she stayed home and gave herself breathing treatments throughout the day and finally started feeling better after few days. She was concerned though that her breathing was significantly effective. The patient did not take any prednisone and she does not like to take prednisone because it causes her to have pleuritis and also elevated blood sugars. She is also struggling with her sleep. She does have a CPAP in the CPAP therapy has been very affecting beneficial for her in the past but now she does not get supplies from the [employer]. Her machine now is older than 5 years therefore will see about getting her new machine them in more effective and then that weight getting her situated with the [employer]. Her Page score is elevated at 10 over 24. She does have cardiovascular risk factors are treating his sleep apnea is important. The patient likely will require repeat home sleep study. Will reach out to her [employer] company to see if they need any other additional information in order to get a replacement machine at this time. In the meantime for her respiratory symptoms she does have increased wheezing therefore will send him medications with the pharmacy and will optimize her Trelegy by switching over to the 200 mcg dose for a month and then hopefully we can titrate her back down to the 100 mcg those. 03/27/2024 the patient is here for sick visit. She has been sick for about 3-4 days. She started developing increased chest tightness and cough. She is also felt weak. She felt some chills. She did call the office we do not have any availability we recommended she go to urgent care. She called again we sent her some medications in the meantime. We made an appointment for today. She has been feeling a little better since she started the Medrol Evelio and she also started the antibiotics, azithromycin. She is still coughing up significant amount of mucus. Greenish in color. She did have a sample that was sent. 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 She was treated with Bactrim for about 4 weeks. She tolerated the treatment well. Will go ahead and send also modified acid-fast for Nocardia. The patient is having significant wheezing on examination. We did provide her with 2 DuoNeb treatments and also that swab for RSV, flu and COVID-19. The result came back negative. She also had a chest x-ray which I personally reviewed which demonstrated some slight atelectasis to the left base suggesting bronchitis. Will go ahead and treat her for early pneumonia at this time. 04/09/2024 the patient is here for a pulmonary follow-up visit. She has now completed the prednisone. Her sugars were significantly elevated up to 500 while on the prednisone. The patient did call EMS but by the time they got there she did take insulin and had improved. She still having hard time with breathing. Significant shortness of breath even at rest. Moderate severity. She has been using the nebulizer every 3-4 hours. She continues on the Trelegy inhaler. Unfortunately exam she is still having significant wheezing and rhonchi. She did complete 2 courses of antibiotics. Her chest x-ray was fairly clear except for some areas of atelectasis. Will go ahead and request blood work specially because heart rate significantly elevated at 125. She will go ahead blood work including a D-dimer to make sure she does not have a risk of thromboembolic disease. She will need additional prednisone. Will try to split into [address] her sugars do not go as high. She will have to take insulin the meantime to maintain her sugars within reason. If her symptoms worsen she may need to go to the ER otherwise follow-up in 3-4 weeks. 04/20/2024 the patient is here for a follow-up visit. She had a hard few months. Her asthma has been uncontrolled. Unfortunately she also has uncontrolled diabetes making it difficult to give her prednisone. We tried maximizing her respiratory therapy by adding budesonide. She has been in the Trelegy. Still having significant wheezing. Also chest congestion removed some greenish phlegm out of her lungs. Will go ahead and try to further adjust her in respiratory therapy by placing her on Brovana in continue the budesonide and then adding Incruse and moving the Trelegy. Hopefully with the nebulized therapy providing further bronchodilation deeper into the airways. In addition to that the patient will be starting on theophylline. She understands the adverse effects of theophylline. Specialist stimulant. She is going to monitor closely any symptoms. She can not tolerated she is going to back off and call me. The patient also will have theophylline levels checked in the coming weeks. I am hopeful though that with the theophylline she will start feeling better. She also continues on Dupixent injections every 2 weeks. If the patient is not getting any better very aggressive respiratory regimen will talk about considering bronchoscopy to rule out deep respiratory infections. And if no infections are warranted then at that point consider changing her biologic to test prior. Will reassess in 2-3 weeks. 05/07/2024 the patient is here for pulmonary follow-up visit. Overall she is doing better from a respiratory status. She did complete the prednisone which is reassuring. The patient has been on the nebulized therapy with some i mprovement. She did not crop picker the theophylline as it was not the pharmacy. At this point since her respiratory status is better will hold off on the as well. She does have difficulty sleeping. She is having significant restlessness. She is already taking gabapentin. I will give her higher dose at nighttime so she can sleep a little better. She is having some neuropathy issues. She will follow-up with her primary care doctor regarding that. In the meantime she continues with the Dupixent injections. Will continue to see her progress. If the patient continues to have underlying respiratory issues will consider switching her over to Tezspire. Also, we can always consider theophylline the future. 08/12/2024 the patient is here for a pulmonary follow-up visit. Overall she is doing better from a respiratory status. Unfortunately though when she feels better she does not use her nebulized therapy. Therefore she needs to continue to use her maintenance inhalers. Will go back to Trelegy that she tolerated before and will be optimizing respiratory therapy. This is because she still has wheezing on examination. The patient also continues on the Dupixent injections which appeared to be affecting beneficial. In no need to change him at this time. She has multiple complaints though she has difficulty sleeping because of neuropathy and restless leg. She is having blood work done add additional blood work to her testing. The patient is having hard time sleeping. She is willing to try Ambien as needed to see if this provides her more restful sleep in therefore she is not so aware of the issues. She continues on the gabapentin at nighttime as well for neuropathy. Will follow-up in about 4 months. If she has any issues prior to that she will call for an earlier assessment. [facility] Medical History (Updated 08/12/24 @ 22:52 by Slick Diego MD) Tachycardia Osteoarthritis Diabetic peripheral neuropathy Diabetes GERD (gastroesophageal reflux disease) Venous insufficiency Vitamin D deficiency Urinary incontinence Insomnia Hypertriglyceridemia HTN (hypertension) Anxiety Depression Lumbar spondylosis Tubular adenoma Dyspnea Chronic restrictive lung disease Asthma TONY (obstructive sleep apnea) Surgical History History of hernia repair H/O: hysterectomy Hx of cholecystectomy History of section Hx of appendectomy History of ankle surgery Family History Father CHF (congestive heart failure) Mother CHF (congestive heart failure) Asthma Brother Asthma Social History Alcohol intake: never Patient Tobacco Use Status: Never used Tobacco Review of Systems Const Reports difficulty sleeping and Reports fatigue Eyes Denies change in vision ENT Denies change in voice, Reports nasal congestion and Reports nasal discharge Card Denies chest pain Resp Denies chest congestion, Reports cough and Reports wheezing GI Reports no additional complaints Musc Reports no additional complaints and Reports tingling Skin/Breast Denies rash Neuro Reports no additional complaints, Reports restless legs, Reports tingling and Reports paresthesias Endo Reports fatigue Fernando/Lymph Denies easy bleeding Aller/Immun Reports wheezing Physical Exam Vital Signs: Last Vital Signs Pulse 100 08/12/24 11:23 BP 124/82 08/12/24 11:23 Pulse Ox 98 08/12/24 11:23 Oxygen Delivery Method Room Air 08/12/24 11:23 BMI result Body Mass Index 34.8 Const General: comfortable HEENT Head: Yes normal to inspection Eyes General: appearance normal, both eyes and all related structures Neck Neck: Yes supple Chest Chest palpation & inspection: normal inspection of the chest Resp Effort & Inspection: normal respiratory effort Auscultation: wheezes and diminished lung sounds Cardio Rate: regular rate Rhythm: regular rhythm Heart sounds: S1 normal heart sound present and S2 normal heart sound present GI Inspection: Yes normal to inspection Extrem General: Yes no clubbing, cyanosis or edema Assessment & Plan Assessment & Plan (1) Asthma: Code(s): J45.909 - Unspecified asthma, uncomplicated Category: Medical Qualifiers: Asthma complication type: uncomplicated Asthma persistence: persistent Asthma severity: severe Qualified Code(s): J45.50 - Severe persistent asthma, uncomplicated (2) Cough: Code(s): R05.9 - Cough, unspecified Category: Medical Qualifiers: Cough type: subacute Qualified Code(s): R05.2 - Subacute cough (3) TONY (obstructive sleep apnea): Code(s): G47.33 - Obstructive sleep apnea (adult) (pediatric) Category: Medical (4) Insomnia: Code(s): G47.00 - Insomnia, unspecified Category: Medical Qualifiers: Insomnia type: primary Qualified Code(s): F51.01 - Primary insomnia (5) Dyspnea: Code(s): R06.00 - Dyspnea, unspecified Category: Medical Qualifiers: Dyspnea type: dyspnea on exertion Qualified Code(s): R06.09 - Other forms of dyspnea (6) Fatigue: Code(s): R53.83 - Other fatigue Category: Medical Qualifiers: Fatigue type: unspecified Qualified Code(s): R53.83 - Other fatigue Plan continue Budesonide BID hold Brovana stop Incruse strat Trelegy daily continue Dupixent, consider Teazsipre EpiPen available MEMO as needed continue Zyrtec gabapentin at night 600-900mg avoid singular secondary to depressive symptoms APAP with supplies. Adjusted APAP 5-12, Will trial F30i medium. Home PSG to address TONY and reactivation F/U 3-4 months Orders: Orders IRON PROFILE Today R06.09 - Other forms of dyspnea, R53.83 - Other fatigue Ferritin Today R06.09 - Other forms of dyspnea, R53.83 - Other fatigue Medications: New nizuzqmrudr-vkjenzmst-hnnheefq 200-62.5-25 mcg (Trelegy Ellipta) 1 inh inhalation DAILY 60 ea 12RF 30 days zolpidem 10 mg PO BEDTIME PRN 30 tabs 3RF sleep 30 days Coding Level of Care Code Est Pt Level 4 (41275) Complex EM visit Add On G2211 Diagnoses Severe persistent asthma without complication J45.50 Asthma complication type: uncomplicated Asthma persistence: persistent Asthma severity: severe Subacute cough R05.2 Cough type: subacute TONY (obstructive sleep apnea) G47.33 Primary insomnia F51.01 Insomnia type: primary Dyspnea on exertion R06.09 Dyspnea type: dyspnea on exertion Fatigue, unspecified type R53.83 Fatigue type: unspecified Time Spent (min) 17
== END 2024-08-12 11:51 | disposition home or self-care (01) ==
PROVIDERS: PCP Internal Medicine; Visit Provider Hospitalist
DX: J45.50 Severe persistent asthma, uncomplicated (principal); R05.2 Subacute cough; G47.33 Obstructive sleep apnea (adult) (pediatric); F51.01 Primary insomnia; R06.09 Other forms of dyspnea; R53.83 Other fatigue
CPT/HCPCS: 99214; G2211

== ENCOUNTER → 2024-08-12 11:21 | Outpatient (BNVA) | payer OTHER, SELFPAY | PROVIDERS: PCP Internal Medicine; Visit Provider Hospitalist | DX: J45.50 Severe persistent asthma, uncomplicated (principal); G47.33 Obstructive sleep apnea (adult) (pediatric); R05.2 Subacute cough; F51.01 Primary insomnia; R06.09 Other forms of dyspnea; R53.83 Other fatigue | CPT/HCPCS: 99212 ==

== ENCOUNTER 2024-10-30 10:44 | Outpatient (AMB) | payer OTHER, SELFPAY ==
--- NOTE | 2024-10-30 11:06 | MHC.OFFVIS ---
Vital Signs 10/30/24 11:07 Height 5 ft 4 in Weight 202 lb 13.204 oz BMI 34.8 BP 110/68 Blood Pressure Location Rt brachial Position Sitting Pulse 110 H Pulse Source Pulse Oximeter Pulse Oximetry (%) 100 Oxygen Delivery Method Room Air Intake Visit Reasons: cough, wheeze Allergies naproxen Allergy (Severe, Verified 10/30/24 11:11) Hives acetaminophen [From Percocet] Adverse Reaction (Severe, Verified 10/30/24 11:11) Hallucinations aspirin Adverse Reaction (Severe, Verified 10/30/24 11:11) Hives codeine Adverse Reaction (Severe, Verified 10/30/24 11:11) Itching ibuprofen [From Motrin IB] Adverse Reaction (Severe, Verified 10/30/24 11:11) Hives Iodinated Contrast Media Adverse Reaction (Severe, Verified 10/30/24 11:11) Hypertension mepolizumab [From Nucala] Adverse Reaction (Severe, Verified 10/30/24 11:11) Itching metformin Adverse Reaction (Severe, Verified 10/30/24 11:11) Difficulty Breathing montelukast [From Singulair] Adverse Reaction (Severe, Verified 10/30/24 11:11) Anxiety morphine Adverse Reaction (Severe, Verified 10/30/24 11:11) Hallucinations omalizumab [From Xolair] Adverse Reaction (Severe, Verified 10/30/24 11:11) Anaphylaxis oxycodone Adverse Reaction (Severe, Verified 10/30/24 11:11) Hallucinations pneumococcal vaccine Adverse Reaction (Severe, Verified 10/30/24 11:11) Hives prednisone Adverse Reaction (Severe, Verified 10/30/24 11:11) Itching tramadol Adverse Reaction (Severe, Verified 10/30/24 11:11) Hives accolate Adverse Reaction (Severe, Uncoded 10/30/24 11:11) Chest Pain PCN Adverse Reaction (Severe, Uncoded 10/30/24 11:11) Hives HPI Comments Details: The patient is a 69-year-old woman with a known history of asthma in addition to obstructive sleep apnea. She has been noticing worsening respiratory symptoms. She was placed on singular as a steroid sparing agent. However, she developed symptoms of depression and had to come off. She is continued on Trelegy which appears to be helping her. The patient had been on Nucala in the past for severe asthma. However, she developed an allergic reaction as well and had to stop it. She has not tried any other biologic medications after that. The patient has not required any prednisone. She also has diabetes and would like to hold off on any significant steroids that can worsen her diabetes control. The patient does have underlying allergies at this point will go ahead and we check her allergies to further assess her potential triggers in order to control her asthma symptoms. The patient also has underlying sleep apnea. She has been having difficulties tolerating the CPAP therapy. Therefore she has not been using it regularly the patient also has a hard time sleeping. She has been using gabapentin with some partial improvement of her symptoms. She does complaint of restless leg. 10/23/2023 the patient is here for a pulmonary follow-up visit. Apparently she was sick back close to the holidays. She had a hard time getting in to be seen. Therefore she stayed home and gave herself breathing treatments throughout the day and finally started feeling better after few days. She was concerned though that her breathing was significantly effective. The patient did not take any prednisone and she does not like to take prednisone because it causes her to have pleuritis and also elevated blood sugars. She is also struggling with her sleep. She does have a CPAP in the CPAP therapy has been very affecting beneficial for her in the past but now she does not get supplies from the [employer]. Her machine now is older than 5 years therefore will see about getting her new machine them in more effective and then that weight getting her situated with the [employer]. Her Trinidad score is elevated at 10 over 24. She does have cardiovascular risk factors are treating his sleep apnea is important. The patient likely will require repeat home sleep study. Will reach out to her [employer] company to see if they need any other additional information in order to get a replacement machine at this time. In the meantime for her respiratory symptoms she does have increased wheezing therefore will send him medications with the pharmacy and will optimize her Trelegy by switching over to the 200 mcg dose for a month and then hopefully we can titrate her back down to the 100 mcg those. 03/27/2024 the patient is here for sick visit. She has been sick for about 3-4 days. She started developing increased chest tightness and cough. She is also felt weak. She felt some chills. She did call the office we do not have any availability we recommended she go to urgent care. She called again we sent her some medications in the meantime. We made an appointment for today. She has been feeling a little better since she started the Medrol Evelio and she also started the antibiotics, azithromycin. She is still coughing up significant amount of mucus. Greenish in color. She did have a sample that was sent. 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 She was treated with Bactrim for about 4 weeks. She tolerated the treatment well. Will go ahead and send also modified acid-fast for Nocardia. The patient is having significant wheezing on examination. We did provide her with 2 DuoNeb treatments and also that swab for RSV, flu and COVID-19. The result came back negative. She also had a chest x-ray which I personally reviewed which demonstrated some slight atelectasis to the left base suggesting bronchitis. Will go ahead and treat her for early pneumonia at this time. 04/09/2024 the patient is here for a pulmonary follow-up visit. She has now completed the prednisone. Her sugars were significantly elevated up to 500 while on the prednisone. The patient did call EMS but by the time they got there she did take insulin and had improved. She still having hard time with breathing. Significant shortness of breath even at rest. Moderate severity. She has been using the nebulizer every 3-4 hours. She continues on the Trelegy inhaler. Unfortunately exam she is still having significant wheezing and rhonchi. She did complete 2 courses of antibiotics. Her chest x-ray was fairly clear except for some areas of atelectasis. Will go ahead and request blood work specially because heart rate significantly elevated at 125. She will go ahead blood work including a D-dimer to make sure she does not have a risk of thromboembolic disease. She will need additional prednisone. Will try to split into [address] her sugars do not go as high. She will have to take insulin the meantime to maintain her sugars within reason. If her symptoms worsen she may need to go to the ER otherwise follow-up in 3-4 weeks. 04/20/2024 the patient is here for a follow-up visit. She had a hard few months. Her asthma has been uncontrolled. Unfortunately she also has uncontrolled diabetes making it difficult to give her prednisone. We tried maximizing her respiratory therapy by adding budesonide. She has been in the Trelegy. Still having significant wheezing. Also chest congestion removed some greenish phlegm out of her lungs. Will go ahead and try to further adjust her in respiratory therapy by placing her on Brovana in continue the budesonide and then adding Incruse and moving the Trelegy. Hopefully with the nebulized therapy providing further bronchodilation deeper into the airways. In addition to that the patient will be starting on theophylline. She understands the adverse effects of theophylline. Specialist stimulant. She is going to monitor closely any symptoms. She can not tolerated she is going to back off and call me. The patient also will have theophylline levels checked in the coming weeks. I am hopeful though that with the theophylline she will start feeling better. She also continues on Dupixent injections every 2 weeks. If the patient is not getting any better very aggressive respiratory regimen will talk about considering bronchoscopy to rule out deep respiratory infections. And if no infections are warranted then at that point consider changing her biologic to test prior. Will reassess in 2-3 weeks. 05/07/2024 the patient is here for pulmonary follow-up visit. Overall she is doing better from a respiratory status. She did complete the prednisone which is reassuring. The patient has been on the nebulized therapy with some improvement. 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 At this point since her respiratory status is better will hold off on the as well. She does have difficulty sleeping. She is having significant restlessness. She is already taking gabapentin. I will give her higher dose at nighttime so she can sleep a little better. She is having some neuropathy issues. She will follow-up with her primary care doctor regarding that. In the meantime she continues with the Dupixent injections. Will continue to see her progress. If the patient continues to have underlying respiratory issues will consider switching her over to Tezspire. Also, we can always consider theophylline the future. 08/12/2024 the patient is here for a pulmonary follow-up visit. Overall she is doing better from a respiratory status. Unfortunately though when she feels better she does not use her nebulized therapy. Therefore she needs to continue to use her maintenance inhalers. Will go back to Trelegy that she tolerated before and will be optimizing respiratory therapy. This is because she still has wheezing on examination. The patient also continues on the Dupixent injections which appeared to be affecting beneficial. In no need to change him at this time. She has multiple complaints though she has difficulty sleeping because of neuropathy and restless leg. She is having blood work done add additional blood work to her testing. The patient is having hard time sleeping. She is willing to try Ambien as needed to see if this provides her more restful sleep in therefore she is not so aware of the issues. She continues on the gabapentin at nighttime as well for neuropathy. Will follow-up in about 4 months. If she has any issues prior to that she will call for an earlier assessment. 10/30/2024 the patient is here for a pulmonary follow-up visit. Overall the patient had been doing well until about a month ago when she started developing worsening respiratory symptoms. She went to an urgent care was having a course of azithromycin. Then she went to her primary care doctor that give her some prednisone and also another course of azithromycin. She is not significantly better. She still complains of cough chest tightness and wheezing. She has not had a chest x-ray she will have 1 today. In the meantime will start on doxycycline. She still has wheezing but she has been off the budesonide nebs. Therefore she understands that she needs to stay on this medication to minimize the need for prednisone. She got weaned off prednisone start the budesonide this time and continue other respiratory regimen. If the x-ray demonstrates any evidence of any airspace disease I will call her to add an additional antibiotic. Currently she is on Dupixent. I do believe that she may be a good candidate for Tezspire if she continues to be symptomatic. She does feel like Dupixent has been helping though. Therefore will continue that for now. [facility] Medical History (Updated 08/12/24 @ 22:52 by Slick Diego MD) Tachycardia Osteoarthritis Diabetic peripheral neuropathy Diabetes GERD (gastroesophageal reflux disease) Venous insufficiency Vitamin D deficiency Urinary incontinence Insomnia Hypertriglyceridemia HTN (hypertension) Anxiety Depression Lumbar spondylosis Tubular adenoma Dyspnea Chronic restrictive lung disease Asthma TONY (obstructive sleep apnea) Surgical History History of hernia repair H/O: hysterectomy Hx of cholecystectomy History of section Hx of appendectomy History of ankle surgery Family History Father CHF (congestive heart failure) Mother CHF (congestive heart failure) Asthma Brother Asthma Social History Alcohol intake: never Patient Tobacco Use Status: Never used Tobacco Review of Systems Const Reports difficulty sleeping and Reports fatigue Eyes Denies change in vision ENT Denies change in voice, Reports nasal congestion and Reports nasal discharge Card Denies chest pain and Reports dyspnea on exertion Resp Denies chest congestion, Reports cough, Reports dyspnea on exertion and Reports wheezing GI Reports no additional complaints Musc Reports no additional complaints and Reports tingling Skin/Breast Denies rash Neuro Reports no additional complaints, Reports restless legs, Reports tingling and Reports paresthesias Endo Reports fatigue Fernando/Lymph Denies easy bleeding Aller/Immun Reports wheezing Physical Exam Vital Signs: Last Vital Signs Pulse 110 H 10/30/24 11:07 BP 110/68 10/30/24 11:07 Pulse Ox 100 10/30/24 11:07 Oxygen Delivery Method Room Air 10/30/24 11:07 BMI result Body Mass Index 34.8 Const General: comfortable HEENT Head: Yes normal to inspection Eyes General: appearance normal, both eyes and all related structures Neck Neck: Yes supple Chest Chest palpation & inspection: normal inspection of the chest Resp Effort & Inspection: normal respiratory effort Auscultation: wheezes and diminished lung sounds Cardio Rate: regular rate Rhythm: regular rhythm Heart sounds: S1 normal heart sound present and S2 normal heart sound present GI Inspection: Yes normal to inspection Extrem General: Yes no clubbing, cyanosis or edema Assessment & Plan Assessment & Plan (1) Asthma: Code(s): J45.909 - Unspecified asthma, uncomplicated Category: Medical Qualifiers: Asthma complication type: uncomplicated Asthma persistence: persistent Asthma severity: severe Qualified Code(s): J45.50 - Severe persistent asthma, uncomplicated (2) Cough: Code(s): R05.9 - Cough, unspecified Category: Medical Qualifiers: Cough type: subacute Qualified Code(s): R05.2 - Subacute cough (3) TONY (obstructive sleep apnea): Code(s): G47.33 - Obstructive sleep apnea (adult) (pediatric) Category: Medical (4) Insomnia: Code(s): G47.00 - Insomnia, unspecified Category: Medical Qualifiers: Insomnia type: primary Qualified Code(s): F51.01 - Primary insomnia (5) Dyspnea: Code(s): R06.00 - Dyspnea, unspecified Category: Medical Qualifiers: Dyspnea type: dyspnea on exertion Qualified Code(s): R06.09 - Other forms of dyspnea (6) Fatigue: Code(s): R53.83 - Other fatigue Category: Medical Qualifiers: Fatigue type: unspecified Qualified Code(s): R53.83 - Other fatigue Plan continue Budesonide BID hold Brovana Trelegy daily continue Dupixent, consider Teazsipre CXR EpiPen available MEMO as needed continue Zyrtec gabapentin at night 600-900mg avoid singular secondary to depressive symptoms APAP with supplies. Adjusted APAP 5-12, Will trial F30i medium. Home PSG to address TONY and reactivation F/U 3-4 months Orders: Orders XR chest 2V 10/30/24 R05.2 - Subacute cough Medications: New benzonatate 200 mg PO BID PRN 30 caps 0RF cough 30 days benzonatate 200 mg PO BID PRN 30 caps 0RF cough 30 days Refilled budesonide 0.5 mg (2 mL) inhalation BID 120 mL 11RF 30 days J44.9 - Chronic obstructive pulmonary disease, unspecified Coding Level of Care Code Est Pt Level 4 (88104) Complex EM visit Add On G2211 Diagnoses Severe persistent asthma without complication J45.50 Asthma complication type: uncomplicated Asthma persistence: persistent Asthma severity: severe Subacute cough R05.2 Cough type: subacute TONY (obstructive sleep apnea) G47.33 Primary insomnia F51.01 Insomnia type: primary Dyspnea on exertion R06.09 Dyspnea type: dyspnea on exertion Fatigue, unspecified type R53.83 Fatigue type: unspecified Time Spent (min) 17
[2024-10-30 11:07] VITALS: BP 110/68; PULSE 110; O2SAT 100; BMI 34.8
--- OUTSIDE RECORDS SUMMARY | 2024-10-30 11:25 | XMS_ITS | Encounter Summary ---
Author Organization [facility] Address [address] [place] [address] Care Team Providers Care Fire Protection Equipment Technician Name Role Phone Charo Chakraborty MD Primary Care Provider [phone] Reason for Visit * Reason Comments Follow-up 6 Month FU Encounter Details Date Type Department Care Team (Late st Contact Info) Description 10/07/2024 10:30 AM EST Office Visit Bariatric Surgery - [place] [address] [facility] [address] [place] [phone] Ashlyn Marcus MD 175 [facility] [address] [place] [phone] Ventral hernia without obstruction or gangrene (Primary Dx); Lipoma of torso; Obesity (BMI 30-39.9) Social History Tobacco Use Types Packs/Day Years Used Date Smoking Tobacco: Never Smokeless Tobacco: Never Alcohol Use Standard Drinks/Week Comments No 0 (1 standard drink = 0.6 oz pur e alcohol) Sex and Gender Information Value Date Recorded Sex Assigned at Not on file Gender Identity Not on file Sexual Orientation Not on file Job Start Date Occupation Industry Not on file Not on file Not on file documented as of this encounter Last Filed Vital Signs Vital Sign Reading Time Taken Comments Blood Pressure 158/90 10/07/2024 10:40 AM EST Pulse 118 10/07/2024 10:40 AM EST Temperature 36.6 ??C (97.9 ??F) 10/07/2024 10:[address] Respiratory Rate - - Oxygen Saturation - - Inhaled Oxygen Concentration - - Weight 90.7 kg (200 lb) 10/07/2024 10:40 AM EST Height 162.6 cm (5' 4 ) 10/07/2024 10:40 AM EST Body Mass Index 34.33 10/07/2024 10:40 AM EST documented in this encounter Functional Status Functional Status Response Date of Assess ment Are you deaf or do you have serious difficulty h earing? No 08/28/2024 Are you blind or do you have serious difficulty seeing, even when wearing glasses? No 08/28/2024 Do you have serious difficul ty walking or climbing stairs? Yes 08/28/2024 Do you have serious difficulty dressing or bathi ng? No 08/28/2024 Because of a physical, menta l, or emotional condition, do you have serious difficulty doing errands alone such as visiting the doctor? No 08/28/2024 Cognitive Status Response Date of Assessm ent Because of a physical, menta l, or emotional condition, do you have serious difficulty concentrating, remembering, or making decisions? (5 years old or older) No 08/28/2024 documented as of this encounter Progress Notes * Ashlyn Marcus MD - 10/07/2024 10:30 AM EST Jazlyn presents for follow-up of right-sided abdominal lipoma as well as ventral hernia. (inferior and to the right aspect of her current mesh so technically not a hernia recurrence but a new hernia ) Last seen in the office 6 months ago. At that time she was pretty asymptomatic so decided to continue observation. Today she states that she feels the same. Has no new symptoms. Denies any abdominal pain. Weight change since last visit: 207 -200= -7 lbs Vitals: 10/07/24 1040 BP: (!) 158/90 Pulse: (!) 118 Temp: 36.6 ??C (97.9 ??F) TempSrc: Temporal Weight: 90.7 kg (200 lb) Height: 1.626 m (64 ) Exam: No acute distress abdomen is soft and obese. Difficult to palpate hernia at the inferior/right aspect of her current mesh. She is nontender in that area. Minimally tender over lipoma in the right upper quadrant. Unchanged from prior Assessment and plan: 69-year-old female with a lipoma as well as a ventral hernia. These are both asymptomatic. Would continue observation with a follow-up in 6 months or sooner if there are any new symptoms. Discussed red flags of incarceration for which to call the office. Of good note, she did lose some weight from her last visit. Continue working on weight loss. All questions answered. documented in this encounter Plan of Treatment Upcoming Encounters Date Type Department Care Team (Late st Contact Info) Description 01/21/2025 1:00 PM EDT Office Visit Bariatric Surgery [facility] [address] [phone] Maira Zurita MD [address] [address] 04/07/2025 9:00 AM EDT Office Visit Bariatric Surgery [facility] [address] [place] [phone] Ashlyn Marcus MD [address] [phone] documented as of this encounter Visit Diagnoses Diagnosis Ventral hernia without obstruction or gangrene- Primary Unspecified ventral hernia without mention of obstruction or gangrene Lipoma of torso Obesity (BMI 30-39.9) documented in this encounter Care Teams Fire Protection Equipment Technician Relationship Specialty Start Date End Date Charo Chakraborty MD [address] [facility] [facility] [address] [place] [phone] PCP - General Internal Medicine 09/25/24 documented as of this encounter
--- OUTSIDE RECORDS SUMMARY | 2024-10-30 11:25 | XMS_ITS | Encounter Summary ---
Author Organization [employer] Address [address] [place] [address] Care Team Providers Care Major Assembly Lineman Name Role Phone Charo Chakraborty MD Primary Care Provider [phone] Reason for Visit * Reason Comments Follow-up 2 month follow up Encounter Details Date Type Department Care Team (Late st Contact Info) Description 10/22/2024 1:15 PM EST Office Visit Bariatric Surgery - [place] [address] [facility] [address] [place] [address] Maira Zurita MD 175 [facility] [address] [place] [address] Class 1 obesity due to excess calories with serious comorbidity and body mass index (BMI) of 34.0 to 34.9 in adult (Primary Dx) Social History Tobacco Use Types Packs/Day Years [...] Sign Reading Time Taken Comments Blood Pressure 117/70 10/22/2024 1:20 PM EST Pulse 100 10/22/2024 1:20 PM EST Temperature 36.8 ??C (98.2 ??F) 10/22/2024 1:20 PM ES T Respiratory Rate - - Oxygen Saturation - - Inhaled Oxygen Concentration - - Weight 91.2 kg (201 lb) 10/22/2024 1:20 PM EST Height 162.6 cm (5' 4 ) 10/22/2024 1:20 PM EST Body Mass Index 34.5 10/22/2024 1:20 PM EST documented in this encounter Functional Status [...] No 08/28/2024 documented as of this encounter Ordered Prescriptions Prescription Sig Dispensed Refills Start Date End Da te tirzepatide (Mounjaro) 10 mg/0.5 mL injectionIndications:Class 1 obesity due to excess calories with serious comorbidity and body mass index (BMI) of 34.0 to 34.9 in adult Inject 0.5 mL (10 mg total) under the skin every 7 (seven) days. 2 mL 1 10/22/2024 12/21/2024 documented in this encounter Progress Notes * Maira Zurita MD - 10/22/2024 1:15 PM EST Ms. Vargas is a 69 y.o. year old female who presents for surgical follow up regarding obesity. HPI: Ms. Vargas has been using tirzepatide. Has lost 7 lbs. Prednisone has not allowed her to lose more. Asthma gets worse with cold weather. BMI is 34.5. ROS: GENERAL: No malaise, significant unintentional weight loss, fever, chills or night sweats. HEENT: No changes in hearing or vision, no nose bleeds or other nasal problems. NECK: No lumps, goiter, pain or significant neck swelling RESPIRATORY: coughing and weezing. CARDIOVASCULAR: No chest pain, leg swelling or palpitations. GI: No abdominal discomfort, nausea, vomiting, or change in bowel habits. : No dysuria, frequency or incontinence. SKIN: No lesions, rash or itching. HEMATOLOGY: No prolonged bleeding, easy bruisability. LYMPHOLOGY No swollen nodes. MUSCULOSKELETAL: No abnormalities. NEURO: No abnormalities. All other systems reviewed which are negative. PAST MEDICAL HISTORY: Patient Active Problem List Diagnosis Date Noted Date Diagnosed Abdominal pain 07/29/2024 Vertigo 01/31/2021 Hot flashes 11/17/2020 Pain of upper abdomen 11/17/2020 Palpitations 11/17/2020 Tubular adenoma 11/17/2020 Allergic conjunctivitis, bilateral 10/03/2020 Epistaxis 10/03/2020 Acute midline low back pain without sciatica 06/15/2020 Spondylosis of lumbar region without myelopathy or radiculopathy 06/15/2020 Severe obesity (BMI 35.0-39.9) with comorbidity ([facility]) 02/02/2019 Constipation 04/23/2018 TONY (obstructive sleep apnea) 03/25/2018 Anxiety 03/10/2018 Depression 03/10/2018 Hypertension 03/10/2018 Hypertriglyceridemia 03/10/2018 Insomnia 03/10/2018 Perennial allergic rhinitis 03/10/2018 Urinary incontinence 03/10/2018 Venous insufficiency 03/10/2018 Vitamin D deficiency 03/10/2018 GERD (gastroesophageal reflux disease) 02/19/2018 Asthma 02/18/2018 Chronic obstructive pulmonary disease (COPD) ([facility]) 02/18/2018 Diabetes mellitus type 2 with neurological manifestations ([facility]) 02/18/2018 Panic attack 04/08/2017 Osteoarthrosis 05/17/2015 PAST SURGICAL HISTORY: Past Surgical History: Procedure Laterality Date ANKLE SURGERY Right 2017 PROCEDURE: HISTORICAL ANKLE SURGERY; COMMENT: medial malleolar fracture SECTION PROCEDURE: HISTORICAL DELIVERY; COMMENT: x3 COLONOSCOPY 05/24/2020 PROCEDURE: HISTORICAL COLONOSCOPY; COMMENT: tubular adenoma ESOPHAGOGASTRODUODENOSCOPY PROCEDURE: CT EGD TRANSORAL BIOPSY SINGLE/MULTIPLE; COMMENT: Performed in February 2021 during hospitalization HERNIA REPAIR PROCEDURE: HISTORICAL HERNIA REPAIR/ING HYSTERECTOMY PROCEDURE: HISTORICAL HYSTERECTOMY SOCIAL HISTORY: Social History Tobacco Use Smoking status: Never Smokeless tobacco: Never Substance Use Topics Alcohol use: No FAMILY HISTORY: Family History Problem Relation Name Age of Onset Heart failure Mother Asthma Mother Heart failure Father Breast cancer Sister 45.00 ag 60 Asthma Brother Colon cancer Neg Hx Ovarian cancer Neg Hx Prostate cancer Neg Hx Family Status Relation Name Status Mother Father Sister Brother (Not Specified) Neg Hx (Not Specified) No partnership data on file MEDICATIONS: There are no discontinued medications. ACTIVE MEDICATIONS: No outpatient medications have been marked as taking for the 10/22/24 encounter (Office Visit) with Maira Zurita MD. ALLERGIES: Allergies Allergen Reactions Montelukast Other Anixety and restlessness Omalizumab Anaphylaxis Zafirlukast Other Patient reports chest tightness and pain in her lungs like burning. Aspirin Codeine Ibuprofen Insulin Aspart Itching Iodinated Contrast Media Other Mepolizumab Itching and eye swelling Metformin Morphine Naproxen Oxycodone Hallucinations Oxycodone-Acetaminophen Penicillins Pneumococcal Vaccine Prednisone Itching but can take with benadryl and prefers to use this Tramadol PHYSICAL EXAM: Visit Vitals BP 117/70 Pulse 100 Temp 36.8 ??C (98.2 ??F) (Oral) Ht 1.626 m (64 ) Wt 91.2 kg (201 lb) BMI 34.50 kg/m?? OB Status Hysterectomy Smoking Status Never BSA 1.96 m?? APPEARANCE: Alert and oriented and in no acute distress EYES: Conjunctiva normal and sclera normal and anicteric. NECK: Neck supple with no adenopathy. HEART: RRR with normal S 1 and S 2, no murmurs, no gallops. LUNG: Clear to auscultation LYMPH NODES: No gross cervical or clavicular lymphadenopathy. ABDOMEN: Bowel sounds normoactive, soft, non-tender, non-distended, EXTREMITIES: Extremities warm and well perfused without clubbing, cyanosis, or edema. SKIN: Skin color and texture normal. No rashes or lesions. NEUROLOGIC: Alert and oriented ??3. No motor or sensory deficits in the extremities. LABS/IMAGING: ASSESSMENT: 1. Class 1 obesity due to excess calories with serious comorbidity and body mass index (BMI) of 34.0 to 34.9 in adult PLAN: 1. Will continue tirzepatide. Increased to 10.0 mg. 2. Will see again in 4 months. documented in this encounter Plan of Treatment Upcoming Encounters Date Type Department Care Team (Late st Contact Info) Description 01/21/2025 1:00 PM EDT Office Visit Bariatric Surgery [facility] [address] [phone] Maira Zurita MD [address] [id number] 04/07/2025 9:00 AM EDT Office Visit Bariatric Surgery [facility] [address] [phone] Ashlyn Marcus MD [address] [phone] documented as of this encounter Visit Diagnoses Diagnosis Class 1 obesity due to excess calories with serious comorbidity and body mass index (BMI) of 34.0 to 34.9 in adult- Primary documented in this encounter Discontinued Medications Medication Sig Discontinue Reason Start Date End Da te tirzepatide (Mounjaro) 7.5 mg/0.5 mL injection Inject 0.5 mL (7.5 mg total) under the skin every 7 (seven) days. 10/05/2024 10/22/2024 documented as of this encounter Care Teams Major Assembly Lineman Relationship Specialty Start Date End Date Charo Chakraborty MD [address] [phone] PCP - General Internal Medicine 09/25/24 documented as of this encounter
--- OUTSIDE RECORDS SUMMARY | 2024-10-30 11:25 | XMS_ITS | Encounter Summary ---
Author Organization [employer] Address [address] [place] [address] Care Team Providers Care Make Ready Mechanic Name Role Phone Charo Chakraborty MD Primary Care Provider [phone] Reason for Visit * Reason Onset Date Comments prior auth 10/20/2024 Encounter Details Date Type Department Care Team ([facility] st Contact Info) Description 10/20/2024 Telephone Internal Medicine - [place] [address] [facility] [address] [place] [phone] Charo Chakraborty MD 175 [facility] [address] [place] [phone] prior auth Social History Tobacco Use Types Packs/Day Years [...] on file documented as of this encounter Functional Status Functional Status Response [...] Dispensed Refills Start Date End Da te lidocaine (LIDODERM) 5 % patchIndications:Other diabetic neurological complication associated with type 2 diabetes mellitus ([facility]) Apply topically 1 (one) time each day. Remove & discard patch within 12 hours or as directed by . 30 patch 1 10/23/2024 documented in this encounter Progress Notes * Heidi Rosa MA - 10/27/2024 3:30 PM EST Prior authorization for the lidocaine patch was approved Approved from 09/30/24 until 10/27/25 Approval faxed to [facility] [phone] * Heidi Rosa MA - 10/23/2024 1:39 PM EST This was already denied . Called [facility] and spoke with Cierra, we redid the authorization over the phone Dx diabetic neuropathy This must still go to a pharmacist for approval or denial Awaiting decision * Charo Chakraborty MD - 10/23/2024 12:58 PM EST SENT WITH DIABETIC NEUROPATHY * Heidi Rosa MA - 10/23/2024 12:49 PM EST Lidocaine patch is not covered. Must have a dx of either Post herpatic neuralgia Cancer related neuropathy Diabetic neuropathy Pt can purchase otc 4% lidocaine patch, cream or roll on Aspercreme Icey Hot or Salon Pas Thank you Please reply back to [facility] (Prior Auth [place]) Heidi Campos [facility] Prior Authorization Ext [id number] * Alma Mandy - 10/20/2024 3:43 PM EST Cover My Meds Medication: lidocaine (LIDODERM) 5 % patch Wells code: [id number] LAST NAME: ELISHA : 1955 documented in this encounter Plan of Treatment Upcoming Encounters Date Type Department Care Team (Late st Contact Info) Description 01/21/2025 1:00 PM EDT Office Visit Bariatric Surgery [facility] [address] [phone] Maira Zurita MD [address] [phone] 04/07/2025 9:00 AM EDT Office Visit Bariatric Surgery [facility] [address] [phone] Ashlyn Marcus MD [address] [phone] documented as of this encounter Visit Diagnoses Diagnosis Other diabetic neurological complication associated with type 2 diabetes mellitus ([facility])- Primary documented in this encounter Discontinued Medications Medication Sig Discontinue Reason Start Date End Da te lidocaine (LIDODERM) 5 % patch APPLY ONE PATCH TOPICALLY EVERY 24 HOURS. APPLY FOR NO MORE THAN 12 HOURS IN ANY 24 HOUR PERIOD. (BULK) Reorder 09/20/2024 10/23/2024 documented as of this encounter Care Teams Make Ready Mechanic Relationship Specialty Start Date End Date Charo Chakraborty MD [address] [phone] PCP - General Internal Medicine 09/25/24 documented as of this encounter
--- OUTSIDE RECORDS SUMMARY | 2024-10-30 11:25 | XMS_ITS | Encounter Summary ---
Author Organization [employer] Address [address] [place] [address] Care Team Providers Care Regional Production Manager Name Role Phone Charo Chakraborty MD Primary Care Provider [phone] Reason for Visit * Reason Comments Follow-up Encounter Details Date Type Department Care Team ([facility] st Contact Info) Description 10/23/2024 9:00 AM EST Office Visit Internal Medicine - [place] [address] [facility] [address] [place] [phone] Charo Chakraborty MD [address] [facility] [address] [place] [phone] Mild intermittent asthma without complication (Primary Dx); Gastroesophageal reflux disease with esophagitis without hemorrhage Social History Tobacco Use Types Packs/Day Years Used Date Smoking Tobacco: Never Smokeless Tobacco: Never Tobacco Cessation:Counseling Given: Not Answered Alcohol Use Standard Drinks/Week Comments No 0 [...] Sign Reading Time Taken Comments Blood Pressure 104/66 10/23/2024 9:27 AM EST Pulse 76 10/23/2024 9:27 AM EST Temperature 37.4 ??C (99.3 ??F) 10/23/2024 9:27 AM ES T Respiratory Rate - - Oxygen Saturation 84% 10/23/2024 9:27 AM EST Inhaled Oxygen Concentration - - Weight 88.5 kg (195 lb) 10/23/2024 9:27 AM EST Height - - Body Mass Index 33.47 10/22/2024 1:20 PM EST documented in this [...] Dispensed Refills Start Date End Da te predniSONE (DELTASONE) 20 mg tablet Take 3 tabs (60mg) daily for 3 days, then take 2 tabs (40mg) daily for 3 days, then take 1 tab (20mg) daily for 3 days. 18 tablet 10/23/2024 11/01/2024 omeprazole (PriLOSEC) [address] capsule Take 1 capsule (20 mg total) by mouth 1 (one) time each day. 90 capsule 3 10/23/2024 10/29/2024 azithromycin (ZITHROMAX) 250 mg tablet Take 2 tablets (500 mg total) by mouth 1 (one) time each day for 1 day, THEN 1 tablet (250 mg total) 1 (one) time each day for 4 days. 6 each 10/23/2024 10/28/2024 azithromycin (ZITHROMAX) 250 mg tablet Take 2 tablets (500 mg total) by mouth 1 (one) time each day for 1 day, THEN 1 tablet (250 mg total) 1 (one) time each day for 4 days. 6 each 10/23/2024 10/23/2024 omeprazole (PriLOSEC) [address] capsule Take 1 capsule (20 mg total) by mouth 1 (one) time each day. 90 capsule 3 10/23/2024 10/23/2024 documented in this encounter Progress Notes * Charo Chakraborty MD - 10/23/2024 9:00 AM EST CHIEF COMPLAINT: Follow-up IDENTIFIER: Jazlyn Vargas is a 69 y.o. old female. HPI:Diabetes, GERD, asthma, depression, hypertension, hyperlipidemia Patient is here for sick visit complaining chest congestion cough with green phlegm, was at the urgent care and was prescribed prednisone, she did not feel much relief. Also concerned about epigastric discomfort ROS: GENERAL: No malaise, significant weight loss or fever NECK: No lumps, goiter, pain or significant neck swelling RESPIRATORY: No cough, wheezing or shortness of breath CARDIOVASCULAR: No chest pain, leg swelling or palpitations GI: No abdominal discomfort, blood in stools or black stools PSYCH: No sleep disturbance, mood disorder or recent psychosocial stressors. PAST MEDICAL HISTORY: Patient Active Problem List Diagnosis Date Noted Abdominal pain 07/29/2024 Vertigo 01/31/2021 Hot flashes 11/17/2020 Pain of upper abdomen 11/17/2020 Palpitations 11/17/2020 Tubular adenoma 11/17/2020 Allergic conjunctivitis, bilateral 10/03/2020 Epistaxis 10/03/2020 Acute midline low back pain without sciatica 06/15/2020 Spondylosis of lumbar region without myelopathy or radiculopathy 06/15/2020 Severe obesity (BMI 35.0-39.9) with comorbidity ([facility]) 02/02/2019 Constipation 04/23/2018 TONY (obstructive sleep apnea) 03/25/2018 Anxiety 03/10/2018 Depression 03/10/2018 Hypertension 03/10/2018 Hypertriglyceridemia 03/10/2018 Insomnia 03/10/2018 Perennial allergic rhinitis 03/10/2018 Urinary incontinence 03/10/2018 Venous insufficiency 03/10/2018 Vitamin D deficiency 03/10/2018 GERD (gastroesophageal reflux disease) 02/19/2018 Asthma 02/18/2018 Chronic obstructive pulmonary disease (COPD) ([facility]) 02/18/2018 Diabetes mellitus type 2 with neurological manifestations ([facility]) 02/18/2018 Panic attack 04/08/2017 Osteoarthrosis 05/17/2015 Past Surgical History: Procedure Laterality Date ANKLE SURGERY Right 2017 PROCEDURE: HISTORICAL ANKLE SURGERY; COMMENT: medial malleolar fracture SECTION PROCEDURE: HISTORICAL DELIVERY; COMMENT: x3 COLONOSCOPY 05/24/2020 PROCEDURE: HISTORICAL COLONOSCOPY; COMMENT: tubular adenoma ESOPHAGOGASTRODUODENOSCOPY PROCEDURE: SC EGD TRANSORAL BIOPSY SINGLE/MULTIPLE; COMMENT: Performed in [...] (Not Specified) No partnership data on file MEDICATIONS DISCONTINUED/REORDERED: Medications Discontinued During This Encounter Medication Reason omeprazole (PriLOSEC) [address] capsule Reorder azithromycin (ZITHROMAX) 250 mg tablet Reorder omeprazole (PriLOSEC) [address] capsule Reorder ACTIVE MEDICATIONS: Outpatient Medications Marked as Taking for the 10/23/24 encounter (Office Visit) with Charo Chakraborty MD Medication Sig Dispense Refill albuterol 2.5 mg /3 mL (0.083 %) nebulizer solution INHALE THE CONTENTS OF 1 VIAL VIA NEBULIZER EVERY 6 HOURS NEEDED FOR WHEEZING (BULK) 360 mL 10 albuterol HFA (PROAIR HFA ; PROVENTIL HFA ; VENTOLIN HFA) 90 mcg/actuation inhaler INHALE TWO PUFFSBY MOUTH EVERY 6 HOURS NEEDED FOR WHEEZING OR FOR SHORTNESS OF BREATH - THIS IS A RESCUE MEDICATION; NOT TO EXCEED 12 INHALATIONS PER 24 HOURS (BULK) alcohol swabs (Alcohol Prep Pads) pads, medicated USE FOUR TIMES A DAY BEFORE INSULIN INJECTION ANDTESTING BLOOD SUGAR (BULK) aluminum-magnesium hydroxide-simethicone (Mintox Maximum Strength) 400-400-40 mg/5 mL suspension Take 5 mL by mouth. ascorbic acid (VITAMIN C) 1,000 mg tablet TAKE ONE TABLET BY MOUTH EVERY DAY ^1R2 atorvastatin (LIPITOR) 10 mg tablet Take 1 tablet (10 mg total) by mouth 1 (one) time each day. azithromycin (ZITHROMAX) 250 mg tablet Take 2 tablets (500 mg total) by mouth 1 (one) time each dayfor 1 day, THEN 1 tablet (250 mg total) 1 (one) time each day for 4 days. 6 each 0 BD Ultra-Fine Short Pen Needle 31 gauge x 5/16 needle USE TO INJECT INSULIN FOUR TIMES A DAY (BULK) 100 each 11 blood sugar diagnostic (Vee24uch Verio test strips) test strip USE DAILY DIRECTED (BULK) 100 strip 1 cetirizine (ZyrTEC) 10 mg tablet TAKE ONE TABLET BY MOUTH EVERY DAY ^1R1 30 tablet 5 cholecalciferol (VITAMIN D-3) 50 mcg (2,000 unit) capsule Take 1 capsule (2,000 Units total) by mouth 1 (one) time each day. cyclobenzaprine (FLEXERIL) 10 mg tablet TAKE ONE TABLET BY MOUTH THREE TIMES A DAY NEEDED FOR MUSCLE SPASMS (TRAYS) ^1R1,1R2,1R4 90 tablet 5 cyclobenzaprine (FLEXERIL) 5 mg tablet Take 1 tablet (5 mg total) by mouth at bedtime as needed. diphenhydrAMINE (Banophen) 25 mg capsule TAKE ONE CAPSULE BY MOUTH EVERY DAY NEEDED FOR ITCHING OR ALLERGIES (VIAL) docusate sodium (COLACE) 100 mg capsule TAKE ONE CAPSULE BY MOUTH TWICE A DAY (VIAL) 30 capsule 5 EPINEPHrine (EPIPEN) 0.3 mg/0.3 mL injection INJECT 1 SYRINGE INTRAMUSCULARLY NEEDED FOR ANAPHYLAXIS (BULK) 2 each 1 estradioL (ESTRACE) 0.01 % (0.1 mg/gram) vaginal cream APPLY A THIN LAYER TO VAGINA / VULVA TWO TIMES WEEKLY AT BEDTIME (BULK) 42.5 g 3 FLUoxetine (PROzac) 20 mg capsule TAKE ONE CAPSULE BY MOUTH EVERY DAY ^1R1 30 capsule 5 fluticasone (Flonase Sensimist) 27.5 mcg/actuation nasal spray Administer 2 sprays into affected nostril(s). sdwdqauuuwf-tyurcngtxpkv-erareokahj (Trelegy Ellipta) 100-62.5-25 mcg inhaler Inhale 1 puff (100 mcg total) by mouth. furosemide (LASIX) 20 mg tablet TAKE ONE TABLET BY MOUTH EVERY DAY ^1R1 gabapentin (NEURONTIN) 300 mg capsule 1 cap po in am, 1 cap at noon, 2 cap at night gabapentin (Neurontin) 400 mg capsule Take 1 capsule (400 mg total) by mouth 3 (three) times a day.90 each 3 glipiZIDE (GLUCOTROL) 10 mg tablet TAKE ONE TABLET BY MOUTH TWICE A DAY BEFORE MEALS ^1R1,1R4 60 tablet 5 HealthyLax 17 gram packet TAKE THE CONTENTS OF ONE PACKET BY MOUTH ONCE DAILY (BULK) 30 packet 11 hydrocortisone valerate (WEST-JAYLENE) 0.2 % ointment Apply to affected areas on body 2 times a day for 7 days. Avoid face and groin hydrOXYzine HCL (ATARAX) 25 mg tablet TAKE ONE TABLET BY MOUTH EVERY 4 HOURS NEEDED FOR ITCHING (#32 IN VIAL) ^1R4 insulin lispro (HumaLOG KwikPen Insulin) 100 unit/mL injection pen INJECT 5 TO 10 UNITS UNDER THE SKIN THREE TIMES A DAY PER SLIDING SCALE (BULK) ketotifen (ZADITOR) 0.025 % ophthalmic solution Administer 1 drop into affected eye(s). lidocaine (LIDODERM) 5 % patch APPLY ONE PATCH TOPICALLY EVERY 24 HOURS. APPLY FOR NO MORE THAN 12 HOURS IN ANY 24 HOUR PERIOD. (BULK) 30 patch 1 loperamide (IMODIUM) 2 mg capsule Take 1 capsule (2 mg total) by mouth. losartan (COZAAR) 50 mg tablet TAKE ONE TABLET BY MOUTH EVERY DAY ^1R1 30 tablet 5 magnesium oxide (MAG-OX) 400 mg (241.3 elemental magnesium) tablet TAKE ONE TABLET BY MOUTH EVERY DAY ^1R4 30 tablet 5 meclizine (ANTIVERT) 25 mg tablet Take 1 tablet (25 mg total) by mouth. meloxicam (MOBIC) 7.5 mg tablet TAKE ONE TABLET BY MOUTH EVERY DAY ^1R1 30 tablet 3 omega-3 acid ethyl esters (LOVAZA) 1 gram capsule TAKE ONE CAPSULE BY MOUTH TWICE A DAY ^1R1,1R4 omeprazole (PriLOSEC) [address] capsule Take 1 capsule (20 mg total) by mouth 1 (one) time each day.90 capsule 3 pantoprazole (PROTONIX) 20 mg EC tablet Take 1 tablet (20 mg total) by mouth 1 (one) time each day. roflumilast 250 mcg tablet TAKE ONE TABLET BY MOUTH EVERY DAY ^1R4 simethicone (MYLICON,GAS-X) 180 mg capsule TAKE ONE CAPSULE BY MOUTH THREE TIMES A DAY WITH MEALS (VIAL) sucralfate (CARAFATE) 100 mg/mL suspension TAKE 10ML BY MOUTH FOUR TIMES A DAY BEFORE MEALS AND AT BEDTIME (BULK) 100 mL 2 tirzepatide (Mounjaro) 10 mg/0.5 mL injection Inject 0.5 mL (10 mg total) under the skin every 7 (seven) days. 2 mL 1 triamcinolone (KENALOG) 0.1 % cream APPLY TO AFFECTED AREA(S) TWO TIMES A DAY (BULK) [DISCONTINUED] omeprazole (PriLOSEC) [address] capsule Take 1 capsule (20 mg total) by mouth. [DISCONTINUED] omeprazole (PriLOSEC) [address] capsule Take 1 capsule (20 mg total) by mouth 1 (one)time each day. 90 capsule 3 ALLERGIES: Allergies Allergen Reactions Montelukast Other Anixety [...] this Tramadol PHYSICAL EXAM: Visit Vitals BP 104/66 (BP Location: Right arm, Patient Position: Sitting, BP Cuff Size: Large adult) Pulse 76 Temp 37.4 ??C (99.3 ??F) (Temporal) Wt 88.5 kg (195 lb) SpO2 (!) 84% BMI 33.47 kg/m?? OB Status Hysterectomy Smoking Status Never BSA 1.94 m?? APPEARANCE: Alert and in no acute distress NECK: Neck supple, no adenopathy, thyroid symmetric and of normal size HEART: RRR with normal S1 and S2, no murmurs, no gallops, no JVD appreciated LUNG: clear to auscultation ABDOMEN: Bowel sounds normoactive, no bruits, soft, non-tender, without organomegaly or palpable masses SKIN: Skin color, texture, turgor normal. No rashes or lesions. LABS/IMAGING: Appointment on 08/03/2024 Component Date Value Ref Range Status Folate 08/03/2024 16.3 2.8 - 17.0 ng/ml Final TSH 08/03/2024 0.35 (L) 0.40 - 4.00 mcIU/mL Final Vitamin B-12 08/03/2024 968 (H) 250 - 900 pcg/mL Final Free T4 08/03/2024 1.14 0.70 - 1.80 ng/dL Final T3, Free 08/03/2024 311 230 - 420 pcg/dL Final Medication and lab orders: No orders of the defined types were placed in this encounter. Other orders: None IMPRESSION: 1. Mild intermittent asthma without complication 2. Gastroesophageal reflux disease with esophagitis without hemorrhage PLAN: Will prescribe prednisone pack and Z-Evelio, oxygen is low today, patient will go to the emergency room if symptoms gets worse, continue inhalers GERD--continue pantoprazole 20 mg daily Will follow-up in 4 months or sooner as needed Charo Chakraborty MD on 10/23/2024 at 10:53 AM EST documented in this encounter Plan of Treatment Upcoming Encounters Date Type Department Care Team (Late st Contact Info) Description 01/21/2025 1:00 PM EDT Office Visit Bariatric Surgery [facility] [address] [phone] Maira Zurita MD [address] [address] 04/07/2025 9:00 AM EDT Office Visit Bariatric Surgery [facility] [address] [phone] Ashlyn Marcus MD [address] [phone] documented as of this encounter Visit Diagnoses Diagnosis Mild intermittent asthma without complication- Primary Gastroesophageal reflux disease with esophagitis without hemorrhage documented in this encounter Discontinued Medications Medication Sig Discontinue Reason Start Date End Da te omeprazole (PriLOSEC) [address] capsule Take 1 capsule (20 mg total) by mouth. Reorder 02/09/2024 10/23/2024 azithromycin (ZITHROMAX) 250 mg tablet Take 2 tablets (500 mg total) by mouth 1 (one) time each day for 1 day, THEN 1 tablet (250 mg total) 1 (one) time each day for 4 days. Reorder 10/23/2024 10/23/2024 omeprazole (PriLOSEC) [address] capsule Take 1 capsule (20 mg total) by mouth 1 (one) time each day. Reorder 10/23/2024 10/23/2024 documented as of this encounter Care Teams Regional Production Manager Relationship Specialty Start Date End Date Charo Chakraborty MD [address] [place] [phone] PCP - General Internal Medicine 09/25/24 documented as of this encounter
--- OUTSIDE RECORDS SUMMARY | 2024-10-30 11:25 | XMS_ITS | Encounter Summary ---
Author Organization [facility] Address [address] [place] [address] Care Team Providers Care Assistant Director Of Nursing Name Role Phone Charo Chakraborty MD Primary Care Provider [phone] Reason for Referral * Imaging (Routine) - Closed Specialty Diagnoses / Procedures Referred By Contac t Referred To Contact Radiology Diagnoses Encounter for screening mammogram for breast cancer Procedures MG Mammo Digital Screening w Curt bilat [facility], Self Referral [facility] Referral ID Status Reason Start Date Expiration Date Visits Re quested Visits Authorized [id number] Closed 10/16/2024 10/16/2025 1 1 * Imaging (Routine) - Closed Specialty Diagnoses / Procedures Referred By Contac t Referred To Contact Radiology Diagnoses Encounter for screening mammogram for breast cancer Procedures MG Mammo Digital Screening w Curt bilat [facility], [facility] Referral [facility] Referral ID Status Reason Start Date Expiration Date Visits Re quested Visits Authorized [id number] Closed 10/16/2024 10/16/2025 1 1 Reason for Visit * Imaging (Routine) - Closed Specialty Diagnoses / Procedures Referred By Contac t Referred To Contact Radiology Diagnoses Encounter for screening mammogram for breast cancer Procedures MG Mammo Digital Screening w Curt bilat [facility], Self Referral [facility] Referral ID Status Reason Start Date Expiration Date Visits Re quested Visits Authorized [id number] Closed 10/16/2024 10/16/2025 1 1 Encounter Details Date Type Department Care Team (Latest Contact Info) Description 10/22/2024 10:42 AM EST - 10/22/2024 11:59 PM EST Hospital Encounter [facility] [address] [phone] Encounter for screening mammogram for breast cancer Discharge Disposition: Home or Self Care Social History Tobacco Use Types Packs/Day Years [...] Sign Reading Time Taken Comments Blood Pressure - - Pulse - - Temperature - - Respiratory Rate - - Oxygen Saturation - - Inhaled Oxygen Concentration - - Weight 90.7 kg (200 lb) 10/22/2024 11:19 AM EST Height 152.4 cm (5') 10/22/2024 11:19 AM EST Body Mass Index 39.06 10/22/2024 11:19 AM EST documented in this encounter Functional [...] No 08/28/2024 documented as of this encounter Medications at Time of Discharge Medication Sig Dispensed Refills Start Date End Date albuterol 2.5 mg /3 mL (0.083 %) nebulizer solution INHALE THE CONTENTS OF 1 VIAL VIA NEBULIZER EVERY 6 HOURS NEEDED FOR WHEEZING (BULK) 360 mL 10 09/20/2024 albuterol HFA (PROAIR HFA ; PROVENTIL HFA ; VENTOLIN HFA) 90 mcg/actuation inhaler INHALE TWO PUFFS BY MOUTH EVERY 6 HOURS NEEDED FOR WHEEZING OR FOR SHORTNESS OF BREATH - THIS IS A RESCUE MEDICATION; NOT TO EXCEED 12 INHALATIONS PER 24 HOURS (BULK) 06/08/2024 alcohol swabs (Alcohol Prep Pads) pads, medicated USE FOUR TIMES A DAY BEFORE INSULIN INJECTION AND TESTING BLOOD SUGAR (BULK) 06/08/2024 aluminum-magnesium hydroxide-simethicon e (Mintox Maximum Strength) 400-400-40 mg/5 mL suspension Take 5 mL by mouth. 02/28/2024 ascorbic acid (VITAMIN C) 1,000 mg tablet TAKE ONE TABLET BY MOUTH EVERY DAY ^1R2 06/08/2024 atorvastatin (LIPITOR) 10 mg tablet Take 1 tablet (10 mg total) by mouth 1 (one) time each day. 05/11/2024 BD Ultra-Fine Short Pen Needle 31 gauge x 5/16 needle USE TO INJECT INSULIN FOUR TIMES A DAY (BULK) 100 each 11 10/17/2024 blood sugar diagnostic (OneTouch Verio test strips) test strip USE DAILY DIRECTED (BULK) 100 strip 1 08/19/2024 cetirizine (ZyrTEC) 10 mg tablet TAKE ONE TABLET BY MOUTH EVERY DAY ^1R1 30 tablet 5 10/17/2024 cholecalciferol (VITAMIN D-3) 50 mcg (2,000 unit) capsule Take 1 capsule (2,000 Units total) by mouth 1 (one) time each day. 07/18/2023 cyclobenzaprine (FLEXERIL) 10 mg tablet TAKE ONE TABLET BY MOUTH THREE TIMES A DAY NEEDED FOR MUSCLE SPASMS (TRAYS) ^1R1,1R2,1R4 90 tablet 5 10/17/2024 cyclobenzaprine (FLEXERIL) 5 mg tablet Take 1 tablet (5 mg total) by mouth at bedtime as needed. 12/08/2023 diphenhydrAMINE (Banophen) 25 mg capsule TAKE ONE CAPSULE BY MOUTH EVERY DAY NEEDED FOR ITCHING OR ALLERGIES (VIAL) 07/02/2024 docusate sodium (COLACE) 100 mg capsule TAKE ONE CAPSULE BY MOUTH TWICE A DAY (VIAL) 30 capsule 5 08/19/2024 EPINEPHrine (EPIPEN) 0.3 mg/0.3 mL injectionIndications :Mild intermittent asthma without complication INJECT 1 SYRINGE INTRAMUSCULARLY NEEDED FOR ANAPHYLAXIS (BULK) 2 each 1 10/17/2024 estradioL (ESTRACE) 0.01 % (0.1 mg/gram) vaginal cream APPLY A THIN LAYER TO VAGINA / VULVA TWO TIMES WEEKLY AT BEDTIME (BULK) 42.5 g 3 08/19/2024 FLUoxetine (PROzac) 20 mg capsule TAKE ONE CAPSULE BY MOUTH EVERY DAY ^1R1 30 capsule 5 10/17/2024 fluticasone (Flonase Sensimist) 27.5 mcg/actuation nasal spray Administer 2 sprays into affected nostril(s). 12/05/2023 fluticasone-umeclidi nium-vilanterol (Trelegy Ellipta) 100-62.5-25 mcg inhaler Inhale 1 puff (100 mcg total) by mouth. 03/08/2022 furosemide (LASIX) 20 mg tablet TAKE ONE TABLET BY MOUTH EVERY DAY ^1R1 05/14/2024 gabapentin (NEURONTIN) 300 mg capsule 1 cap po in am, 1 cap at noon, 2 cap at night 02/10/2024 gabapentin (Neurontin) 400 mg capsule Take 1 capsule (400 mg total) by mouth 3 (three) times a day. 90 each 3 09/03/2024 glipiZIDE (GLUCOTROL) 10 mg tablet TAKE ONE TABLET BY MOUTH TWICE A DAY BEFORE MEALS ^1R,1R4 60 tablet 5 10/17/2024 HealthyLax 17 gram packet TAKE THE CONTENTS OF ONE PACKET BY MOUTH ONCE DAILY (BULK) 30 packet 11 10/17/2024 hydrocortisone valerate (WEST-JAYLENE) 0.2 % ointment Apply to affected areas on body 2 times a day for 7 days. Avoid face and groin 12/05/2023 hydrOXYzine HCL (ATARAX) 25 mg tablet TAKE ONE TABLET BY MOUTH EVERY 4 HOURS NEEDED FOR ITCHING (#32 IN VIAL) ^1R4 06/08/2024 insulin lispro (HumaLOG KwikPen Insulin) 100 unit/mL injection pen INJECT 5 TO 10 UNITS UNDER THE SKIN THREE TIMES A DAY PER SLIDING SCALE (BULK) 11/22/2023 ketotifen (ZADITOR) 0.025 % ophthalmic solution Administer 1 drop into affected eye(s). 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 Remove & discard patch within 12 hours or as directed by . 30 patch 1 10/23/2024 loperamide (IMODIUM) 2 mg capsule Take 1 capsule (2 mg total) by mouth. 12/05/2023 losartan (COZAAR) 50 mg tablet TAKE ONE TABLET BY MOUTH EVERY DAY ^1R1 30 tablet 5 10/17/2024 magnesium oxide (MAG-OX) 400 mg (241.3 elemental magnesium) tablet TAKE ONE TABLET BY MOUTH EVERY DAY ^1R4 30 tablet 5 10/17/2024 meclizine (ANTIVERT) 25 mg tablet Take 1 tablet (25 mg total) by mouth. 12/05/2023 meloxicam (MOBIC) 7.5 mg tablet TAKE ONE TABLET BY MOUTH EVERY DAY ^1R1 30 tablet 3 10/17/2024 omega-3 acid ethyl esters (LOVAZA) 1 gram capsule TAKE ONE CAPSULE BY MOUTH TWICE A DAY ^1R1,1R4 06/08/2024 pantoprazole (PROTONIX) 20 mg EC tablet Take 1 tablet (20 mg total) by mouth 1 (one) time each day. 12/05/2023 roflumilast 250 mcg tablet TAKE ONE TABLET BY MOUTH EVERY DAY ^1R4 02/14/2024 simethicone (MYLICON,GAS-X) 180 mg capsule TAKE ONE CAPSULE BY MOUTH THREE TIMES A DAY WITH MEALS (VIAL) 02/11/2024 sucralfate (CARAFATE) 100 mg/mL suspension TAKE 10ML BY MOUTH FOUR TIMES A DAY BEFORE MEALS AND AT BEDTIME (BULK) 100 mL 2 10/17/2024 tirzepatide (Mounjaro) 10 mg/0.5 mL injectionIndications :Class 1 obesity due to excess calories with serious comorbidity and body mass index (BMI) of 34.0 to 34.9 in adult Inject 0.5 mL (10 mg total) under the skin every 7 (seven) days. 2 mL 1 10/22/2024 12/21/2024 lidocaine (LIDODERM) 5 % patch APPLY ONE PATCH TOPICALLY EVERY 24 HOURS. APPLY FOR NO MORE THAN 12 HOURS IN ANY 24 HOUR PERIOD. (BULK) 30 patch 1 09/20/2024 10/23/2024 omeprazole (PriLOSEC) [address] capsule Take 1 capsule (20 mg total) by mouth. 02/09/2024 10/23/2024 triamcinolone (KENALOG) 0.1 % cream APPLY TO AFFECTED AREA(S) TWO TIMES A DAY (BULK) 12/05/2023 10/26/2024 documented as of this encounter Discharge Disposition Disposition Code Departure Means Destination Home or Self Care documented in this encounter Plan of Treatment Upcoming Encounters Date Type Department Care Team (Late st Contact Info) Description 01/21/2025 1:00 PM EDT Office Visit Bariatric Surgery [address] [phone] Maira Zurita MD [address] [phone] 04/07/2025 9:00 AM EDT Office Visit Bariatric Surgery [facility] [address] [phone] Ashlyn Marcus MD [address] [phone] documented as of this encounter Procedures Procedure Name Priority Date/Time Associated Diagnosis Comments MG MAMMO DIGITAL SCREENING W CURT BILAT Routine 10/22/2024 11:25 AM EST Encounter for screening mammogram for breast cancer documented in this encounter Results * MG Mammo Digital Screening w Curt bilat (10/22/2024 11:25 AM EST) Anatomical Region Laterality Modality Breast Bilateral Mammography 10/22/2024 1:02 PM EST Impressions 10/22/2024 1:08 PM EST No mammographic evidence of malignancy. ?? No suspicious interval change. A negative mammogram in the presence of a clinically suspicious palpable abnormality does not preclude the possibility of malignancy or alter the indications for biopsy. ASSESSMENT: ?? BI-RADS 1: NEGATIVE RECOMMENDATION(S): 1: Routine screening mammogram BILATERAL in 1 year. -------- FINAL REPORT -------- Dictated By: Lopez Miranda Dictated Date: 10/22/2024 13:02 ET Assigned Physician: Lopez Miranda Reviewed and Electronically Signed By: Lopez Miranda Signed Date: 10/22/2024 13:08 ET Workstation ID: [id number] Transcribed By: Self Edit Transcribed Date: 10/22/2024 13:02 ET Narrative 10/22/2024 1:08 PM EST EXAM: ??SCREENING MAMMOGRAPHY, BILATERAL HISTORY: ??SCREENING. ??Family history of breast cancer, sister diagnosed age 45, age 60. COMPARISON: ??09/04/2023, 08/22/2022, 08/16/2021, 05/23/2020 TECHNIQUE: Synthesized CC and MLO projections of each breast. ??Tomosynthesis of each breast in the CC and MLO projections. ADDITIONAL IMAGING: None Computer-aided detection was employed with the iCAD ??profound AI 3-D. TISSUE DENSITY: There are scattered areas of fibroglandular density. (BI-RADS category B) FINDINGS: RIGHT BREAST: No suspicious mass. No suspicious calcification. No distortion. ?? No additional suspicious right breast findings LEFT BREAST: No suspicious mass. No suspicious calcification. No distortion. ?? No additional suspicious left breast findings Procedure Note Lopez Miranda MD - 10/22/2024 EXAM: SCREENING MAMMOGRAPHY, BILATERAL HISTORY: SCREENING. Family history of breast cancer, sister diagnosedage 45, age 60. COMPARISON: 09/04/2023, 08/22/2022, 08/16/2021, 05/23/2020 TECHNIQUE: Synthesized CC and MLO projections of each breast.Tomosynthesis of each breast in the CC and MLO projections. ADDITIONAL IMAGING: None Computer-aided detection was employed with the iCAD profound AI 3-D. TISSUE DENSITY: There are scattered areas of fibroglandular density.(BI-RADS category B) FINDINGS: RIGHT BREAST: No suspicious mass. No suspicious calcification. No distortion. Noadditional suspicious right breast findings LEFT BREAST: No suspicious mass. No suspicious calcification. No distortion. Noadditional suspicious left breast findings IMPRESSION: No mammographic evidence of malignancy. No suspicious interval change. A negative mammogram in the presence of a clinically suspicious palpableabnormality does not preclude the possibility of malignancy or alter theindications for biopsy. ASSESSMENT: BI-RADS 1: NEGATIVE RECOMMENDATION(S): 1: Routine screening mammogram BILATERAL in 1 year. -------- FINAL REPORT -------- Dictated By: Lopez Miranda Dictated Date: 10/22/2024 13:02 ET Assigned Physician: Lopez Miranda Reviewed and Electronically Signed By: Lopez Miranda Signed Date: 10/22/2024 13:08 ET Workstation ID: [id number] Transcribed By: Self Edit Transcribed Date: 10/22/2024 13:02 ET Self Referral [facility]G BI PROCEDURES documented in this encounter Visit Diagnoses Diagnosis Encounter for screening mammogram for breast cancer documented in this encounter Care Teams Assistant Director Of Nursing Relationship Specialty Start Date End Date Charo Chakraborty MD [address] [place] [phone] PCP - General Internal Medicine 09/25/24 documented as of this encounter
--- OUTSIDE RECORDS SUMMARY | 2024-10-30 11:26 | XMS_ITS | Clinical Summary ---
Author Organization [address] Address [address] [place] [address] Phone Care Team Providers Care Manager Oracle Database Name Role Phone Charo Chakraborty MD Primary Care Provider [phone] Allergies Active Allergy Reactions Criticality Noted Date Comments Aspirin 10/05/2009 Codeine 09/14/2010 Ibuprofen 05/23/2017 Insulin Aspart Itching 11/22/2023 Iodinated Contrast Media Other 03/24/2020 Mepolizumab 02/15/2021 Itching and eye swelling Metformin 05/08/2016 Montelukast Other High 01/09/2022 Anixety and restlessness Morphine 08/28/2011 Naproxen 12/13/2020 Omalizumab Anaphylaxis High 11/22/2017 Oxycodone Hallucinations 01/11/2021 Oxycodone-Acetaminophen 10/05/2009 Penicillins 02/27/2018 Pneumococcal Vaccine 02/27/2018 Prednisone 08/24/2015 Itching but can take with benadryl and prefers to use this Tramadol 07/28/2014 Zafirlukast Other High 01/13/2022 Patient reports chest tightness and pain in her lungs like burning. Medications Medication Sig Dispensed Refills Start Date End Date Status albuterol HFA (PROAIR HFA ; PROVENTIL HFA ; VENTOLIN HFA) 90 mcg/actuation inhaler INHALE TWO PUFFS BY MOUTH EVERY 6 HOURS NEEDED FOR WHEEZING OR FOR SHORTNESS OF BREATH - THIS IS A RESCUE MEDICATION; NOT TO EXCEED 12 INHALATIONS PER 24 HOURS (BULK) 06/08/20 24 Active alcohol swabs (Alcohol Prep Pads) pads, medicated USE FOUR TIMES A DAY BEFORE INSULIN INJECTION AND TESTING BLOOD SUGAR (BULK) 06/08/20 24 Active ascorbic acid (VITAMIN C) 1,000 mg tablet TAKE ONE TABLET BY MOUTH EVERY DAY ^1R2 06/08/20 24 Active atorvastatin (LIPITOR) 10 mg tablet Take 1 tablet (10 mg total) by mouth 1 (one) time each day. 05/11/20 24 Active cholecalciferol (VITAMIN D-3) 50 mcg (2,000 unit) capsule Take 1 capsule (2,000 Units total) by mouth 1 (one) time each day. 07/18/20 23 Active cyclobenzaprine (FLEXERIL) 5 mg tablet Take 1 tablet (5 mg total) by mouth at bedtime as needed. 12/08/19 24 Active diphenhydrAMINE (Banophen) 25 mg capsule TAKE ONE CAPSULE BY MOUTH EVERY DAY NEEDED FOR ITCHING OR ALLERGIES (VIAL) 07/02/20 24 Active fluticasone (Flonase Sensimist) 27.5 mcg/actuation nasal spray Administer 2 sprays into affected nostril(s). 12/05/19 24 Active fluticasone-umec lidinium-vilante rol (Trelegy Ellipta) 100-62.5-25 mcg inhaler Inhale 1 puff (100 mcg total) by mouth. 03/08/20 22 Active furosemide (LASIX) 20 mg tablet TAKE ONE TABLET BY MOUTH EVERY DAY ^1R1 05/14/20 24 Active gabapentin (NEURONTIN) 300 mg capsule 1 cap po in am, 1 cap at noon, 2 cap at night 02/10/20 24 Active hydrocortisone valerate (WEST-JAYLENE) 0.2 % ointment Apply to affected areas on body 2 times a day for 7 days. Avoid face and groin 12/05/19 24 Active hydrOXYzine HCL (ATARAX) 25 mg tablet TAKE ONE TABLET BY MOUTH EVERY 4 HOURS NEEDED FOR ITCHING (#32 IN VIAL) ^1R4 06/08/20 24 Active insulin lispro (HumaLOG KwikPen Insulin) 100 unit/mL injection pen INJECT 5 TO 10 UNITS UNDER THE SKIN THREE TIMES A DAY PER SLIDING SCALE (BULK) 11/22/19 24 Active ketotifen (ZADITOR) 0.025 % ophthalmic solution Administer 1 drop into affected eye(s). 05/02/20 21 Active loperamide (IMODIUM) 2 mg capsule Take 1 capsule (2 mg total) by mouth. 12/05/19 24 Active aluminum-magnesi um hydroxide-simeth icone (Mintox Maximum Strength) 400-400-40 mg/5 mL suspension Take 5 mL by mouth. 02/28/20 24 Active meclizine (ANTIVERT) 25 mg tablet Take 1 tablet (25 mg total) by mouth. 12/05/19 24 Active omega-3 acid ethyl esters (LOVAZA) 1 gram capsule TAKE ONE CAPSULE BY MOUTH TWICE A DAY ^1R1,1R4 06/08/20 24 Active pantoprazole (PROTONIX) 20 mg EC tablet Take 1 tablet (20 mg total) by mouth 1 (one) time each day. 12/05/19 24 Active roflumilast 250 mcg tablet TAKE ONE TABLET BY MOUTH EVERY DAY ^1R4 02/14/20 24 Active simethicone (MYLICON,GAS-X) 180 mg capsule TAKE ONE CAPSULE BY MOUTH THREE TIMES A DAY WITH MEALS (VIAL) 02/11/20 24 Active estradioL (ESTRACE) 0.01 % (0.1 mg/gram) vaginal cream APPLY A THIN LAYER TO VAGINA / VULVA TWO TIMES WEEKLY AT BEDTIME (BULK) 42.5 g 3 08/19/20 24 Active blood sugar diagnostic (OneTouch Verio test strips) test strip USE DAILY DIRECTED (BULK) 100 strip 1 08/19/20 24 Active docusate sodium (COLACE) 100 mg capsule TAKE ONE CAPSULE BY MOUTH TWICE A DAY (VIAL) 30 capsule 5 08/19/20 24 Active gabapentin (Neurontin) 400 mg capsule Take 1 capsule (400 mg total) by mouth 3 (three) times a day. 90 each 3 09/03/20 24 Active albuterol 2.5 mg /3 mL (0.083 %) nebulizer solution INHALE THE CONTENTS OF 1 VIAL VIA NEBULIZER EVERY 6 HOURS NEEDED FOR WHEEZING (BULK) 360 mL 10 09/20/20 24 Active cetirizine (ZyrTEC) 10 mg tablet TAKE ONE TABLET BY MOUTH EVERY DAY ^1R1 30 tablet 5 10/17/19 25 Active EPINEPHrine (EPIPEN) 0.3 mg/0.3 mL injectionIndicat ions:Mild intermittent asthma without complication INJECT 1 SYRINGE INTRAMUSCULARLY NEEDED FOR ANAPHYLAXIS (BULK) 2 each 10/17/19 25 Active magnesium oxide (MAG-OX) 400 mg (241.3 elemental magnesium) tablet TAKE ONE TABLET BY MOUTH EVERY DAY ^1R4 30 tablet 10/17/19 25 Active HealthyLax 17 gram packet TAKE THE CONTENTS OF ONE PACKET BY MOUTH ONCE DAILY (BULK) 30 packet 10/17/19 Active sucralfate (CARAFATE) 100 mg/mL suspension TAKE 10ML BY MOUTH FOUR TIMES A DAY BEFORE MEALS AND AT BEDTIME (BULK) 100 mL 10/17/19 25 Active BD Ultra-Fine Short Pen Needle 31 gauge x 5/16 needle USE TO INJECT INSULIN FOUR TIMES A DAY (BULK) 100 each 10/17/19 25 Active meloxicam (MOBIC) 7.5 mg tablet TAKE ONE TABLET BY MOUTH EVERY DAY ^1R1 30 tablet 10/17/19 25 Active FLUoxetine (PROzac) 20 mg capsule TAKE ONE CAPSULE BY MOUTH EVERY DAY ^1R1 30 capsule 10/17/19 25 Active cyclobenzaprine (FLEXERIL) 10 mg tablet TAKE ONE TABLET BY MOUTH THREE TIMES A DAY NEEDED FOR MUSCLE SPASMS (TRAYS) ^1R1,1R2,1R4 90 tablet 10/17/19 25 Active losartan (COZAAR) 50 mg tablet TAKE ONE TABLET BY MOUTH EVERY DAY ^1R1 30 tablet 10/17/19 25 Active glipiZIDE (GLUCOTROL) 10 mg tablet TAKE ONE TABLET BY MOUTH TWICE A DAY BEFORE MEALS ^1R1,1R4 60 tablet 10/17/19 25 Active tirzepatide (Mounjaro) 10 mg/0.5 mL injectionIndicat ions:Class 1 obesity due to excess calories with serious comorbidity and body mass index (BMI) of 34.0 to 34.9 in adult Inject 0.5 mL (10 mg total) under the skin every 7 (seven) days. 2 mL 1 10/22/19 25 025 Active predniSONE (DELTASONE) 20 mg tablet Take 3 tabs (60mg) daily for 3 days, then take 2 tabs (40mg) daily for 3 days, then take 1 tab (20mg) daily for 3 days. 18 tablet 10/23/19 25 025 Active lidocaine (LIDODERM) 5 % patchIndications :Other diabetic neurological complication associated with type 2 diabetes mellitus (CMS/HCC) Apply topically 1 (one) time each day. Remove & discard patch within 12 hours or as directed by . 30 patch 1 10/23/19 25 Active triamcinolone (KENALOG) 0.1 % cream APPLY TO AFFECTED AREA(S) TWO TIMES A DAY (BULK) 60 g 3 10/26/19 25 Active omeprazole (PriLOSEC) [address] capsule Take 1 capsule (20 mg total) by mouth 1 (one) time each day. 90 capsule 3 10/29/19 25 026 Active cetirizine (ZyrTEC) 10 mg tablet TAKE ONE TABLET BY MOUTH EVERY DAY ^1R1 05/14/20 24 025 Discontinued cyclobenzaprine (FLEXERIL) 10 mg tablet TAKE ONE TABLET BY MOUTH THREE TIMES A DAY NEEDED FOR MUSCLE SPASMS (TRAYS) ^1R1,1R2,1R4 05/14/20 24 025 Discontinued FLUoxetine (PROzac) 20 mg capsule TAKE ONE CAPSULE BY MOUTH EVERY DAY ^1R1 05/14/20 24 025 Discontinued glipiZIDE (GLUCOTROL) 10 mg tablet Take 1 tablet (10 mg total) by mouth. 12/05/19 24 025 Discontinued losartan (COZAAR) 50 mg tablet TAKE ONE TABLET BY MOUTH EVERY DAY ^1R1 05/14/20 24 025 Discontinued omeprazole (PriLOSEC) [address] capsule Take 1 capsule (20 mg total) by mouth. 02/09/20 24 025 Discontinued(Re order) polyethylene glycol (MIRALAX) 17 gram packet Take 17 g by mouth. 12/05/19 24 025 Discontinued sucralfate (CARAFATE) 100 mg/mL suspension Take 10 mL (1 g total) by mouth. 12/05/19 24 025 Discontinued tirzepatide (Mounjaro) 5 mg/0.5 mL injection Inject 0.5 mL (5 mg total) under the skin. 07/24/20 24 025 Discontinued(Do se adjustment) triamcinolone (KENALOG) 0.1 % cream APPLY TO AFFECTED AREA(S) TWO TIMES A DAY (BULK) 12/05/19 24 025 Discontinued EPINEPHrine (EPIPEN) 0.3 mg/0.3 mL injectionIndicat ions:Mild intermittent asthma without complication INJECT 1 SYRINGE INTRAMUSCULARLY NEEDED FOR ANAPHYLAXIS (BULK) 2 each 1 08/19/20 24 025 Discontinued lidocaine (LIDODERM) 5 % patch APPLY ONE PATCH TOPICALLY EVERY 24 HOURS. APPLY FOR NO MORE THAN 12 HOURS IN ANY 24 HOUR PERIOD. (BULK) 30 patch 1 09/20/20 24 025 Discontinued(Re order) tirzepatide (Mounjaro) 7.5 mg/0.5 mL injection Inject 0.5 mL (7.5 mg total) under the skin every 7 (seven) days. 2 mL 1 10/05/19 25 025 Discontinued omeprazole (PriLOSEC) [address] capsule Take 1 capsule (20 mg total) by mouth 1 (one) time each day. 90 capsule 3 10/23/19 25 025 Discontinued(Re order) azithromycin (ZITHROMAX) 250 mg tablet Take 2 tablets (500 mg total) by mouth 1 (one) time each day for 1 day, THEN 1 tablet (250 mg total) 1 (one) time each day for 4 days. 6 each 10/23/19 25 025 Discontinued(Re order) azithromycin (ZITHROMAX) 250 mg tablet Take 2 tablets (500 mg total) by mouth 1 (one) time each day for 1 day, THEN 1 tablet (250 mg total) 1 (one) time each day for 4 days. 6 each 10/23/19 25 025 omeprazole (PriLOSEC) [address] capsule Take 1 capsule (20 mg total) by mouth 1 (one) time each day. 90 capsule 3 10/23/19 25 025 Discontinued(Re order) Active Problems Problem Noted Date Diagnosed Date Abdominal pain 07/29/2024 Vertigo 01/31/2021 Hot flashes 11/17/2020 Pain of upper abdomen 11/17/2020 Palpitations 11/17/2020 Tubular adenoma 11/17/2020 Allergic conjunctivitis, bilateral 10/03/2020 Epistaxis 10/03/2020 Acute midline low back pain without sciatica Spondylosis of lumbar region without myelopathy or radiculopathy 06/15/2020 Severe obesity (BMI 35.0-39.9) with comorbidity 02/02/2019 Constipation 04/23/2018 TONY (obstructive sleep apnea) 03/25/2018 Overview (07/29/2024): [facility] Polysomnogram: Date 07/13/2020; Wt 217#; BMI 36; SE 71%; SM 72%; REM 19%; RDI 6 (AHI 6), REM (RDI 18- AHI 18), Central apneas 2; Obstructive apneas 0; Mixed apneas 0; hypopneas 33; RERAs 0; average oxygen saturation 92% (lowest 76% - without saturations <88% for 5% or more of study); PLMs 1. - Obstructive Sleep Apnea - mild overall and moderate in REM; mostly hypopneas; without sleep related hypoventilation by 2019 polysomnogram. Anxiety 03/10/2018 Depression 03/10/2018 Hypertension 03/10/2018 Overview (07/29/2024): Last Assessment & Plan: Controlled, continue current regimen Hypertriglyceridemia 03/10/2018 Insomnia 03/10/2018 Perennial allergic rhinitis 03/10/2018 Urinary incontinence 03/10/2018 Venous insufficiency 03/10/2018 Overview (07/29/2024): Last Assessment & Plan: Continue with Lasix, trace ankle swelling, she elevates them when at home Vitamin D deficiency 03/10/2018 GERD (gastroesophageal reflux disease) 8 Asthma 02/18/2018 Chronic obstructive pulmonary disease (COPD) Diabetes mellitus type 2 with neurological manif estations 02/18/2018 Panic attack 04/08/2017 Osteoarthrosis 05/17/2015 Encounters Date Type Department Care Team Description 10/23/2024 9:00 AM EST Office Visit Internal Medicine - [address] [place] [address] Charo Chakraborty MD Mild intermittent asthma without complication (Primary Dx); Gastroesophageal reflux disease with esophagitis without hemorrhage 10/22/2024 1:15 PM EST Office Visit Bariatric Surgery - [place] [address] [phone] Maira Zurita MD Class 1 obesity due to excess calories with serious comorbidity and body mass index (BMI) of 34.0 to 34.9 in adult (Primary Dx) 10/22/2024 10:42 AM EST - 10/22/2024 11:59 PM EST Hospital [facility] at [address] [phone] Encounter for screening mammogram for breast cancer Discharge Disposition: Home or Self Care 10/20/2024 Telephone Internal Medicine - [address] [phone] Charo Chakraborty MD prior auth 10/07/2024 10:30 AM EST Office Visit Bariatric Surgery - [address] [phone] Ashlyn Marcus MD Ventral hernia without obstruction or gangrene (Primary Dx); Lipoma of torso; Obesity (BMI 30-39.9) 09/03/2024 12:00 PM EST Office Visit Internal Medicine - [address] [phone] Charo Chakraborty MD Pain in both lower extremities (Primary Dx) 08/28/2024 1:33 PM EST - 08/28/2024 3:[address] [facility] [address] [place] [phone] Pain (Primary Dx); Right calf pain Discharge Disposition: Home or Self Care 08/28/2024 Telephone Internal Medicine - [address] [phone] Charo Chakraborty MD Hospital Follow-up 08/06/2024 Telephone Internal Medicine [address] [phone] Charo Chakraborty MD Insurance call from Last 3 Months Surgical History Surgery Date Site/Laterality Comments ANKLE SURGERY 2016 Right PROCEDURE: HISTORICAL ANKLE SURGERY; COMMENT: medial malleolar fracture SECTION PROCEDURE: HISTORICAL DELIVERY; COMMENT: x3 HYSTERECTOMY PROCEDURE: HISTORICAL HYSTERECTOMY HERNIA REPAIR PROCEDURE: HISTORICAL HERNIA REPAIR/ING COLONOSCOPY 05/24/2020 PROCEDURE: HISTORICAL COLONOSCOPY; COMMENT: tubular adenoma ESOPHAGOGASTRODUODENOSCOPY PROCEDURE: AK EGD TRANSORAL BIOPSY SINGLE/MULTIPLE; COMMENT: Performed in February 2021 during hospitalization Medical History Medical History Date Comments Asthma 02/18/2018 DX:Asthma Chronic obstructive pulmonar y disease (COPD) ([facility]) 02/18/2018 DX:Chronic obstructive pulmo nary disease (COPD) ([facility]) GERD (gastroesophageal reflux disease) 8 DX:GERD (gastroesophageal reflux disease) Allergic rhinitis 03/10/2018 DX:Allergic rh initis Anxiety 03/10/2018 DX:Anxiety Depression 03/10/2018 DX:Depression Diabetes mellitus type 2 wit h neurological manifestations ([facility]) 02/18/2018 DX:Diabetes jacob itus type 2 with neurological manifestations ([facility]) Hypertension 03/10/2018 DX:Hypertension Hypertriglyceridemia 03/10/2018 DX:Hypertri glyceridemia Insomnia 03/10/2018 DX:Insomnia Urinary incontinence 03/10/2018 DX:Urinary incontinence Venous insufficiency 03/10/2018 DX:Venous i nsufficiency Vitamin D deficiency 03/10/2018 DX:Vitamin D deficiency Diabetic peripheral neuropathy ([facility]) 016 DX:Diabetic peripheral neuropathy ([facility]) Panic attack 04/08/2017 DX:Panic attack Osteoarthrosis 05/17/2015 DX:Osteoarthrosi s TONY (obstructive sleep apnea) 03/25/2018 DX :TONY (obstructive sleep apnea) History of colon polyps DX:Histo ry of colon polyps Abdominal pain DX:Abdominal dm n Epigastric pain DX:Epigastric pa in Irritable bowel syndrome DX:Irri table bowel syndrome Family History Medical History Relation Name Comments Asthma Brother Heart failure Father Asthma Mother Heart failure Mother Breast cancer Sister ag 60 Colon cancer Neg Hx Ovarian cancer Neg Hx Prostate cancer Neg Hx Relation Name Status Comments Brother Father Mother Sister Social History Tobacco Use Types Packs/Day Years [...] file Not on file Not on file Obstetrics History Para Term AB IAB SAB Ectopic Multiple Livin g Live Births 3 Last Filed Vital Signs Vital Sign Reading Time Taken Comments Blood Pressure 104/66 10/23/2024 9:27 AM EST Pulse 76 10/23/2024 9:27 AM EST Temperature 37.4 ??C (99.3 ??F) 10/23/2024 9:27 AM ES T Respiratory Rate 17 08/28/2024 2:54 PM EST Oxygen Saturation 84% 10/23/2024 9:27 AM EST Inhaled Oxygen Concentration - - Weight 88.5 kg (195 lb) 10/23/2024 9:27 AM EST Height 162.6 cm (5' 4 ) 10/22/2024 1:20 PM EST Body Mass Index 33.47 10/22/2024 1:20 PM EST Plan of Treatment Upcoming Encounters Date Type Department Care Team (Late st Contact Info) Description 01/21/2025 1:00 PM EDT Office Visit Bariatric Surgery [facility] [address] [phone] Maira Zurita MD [address] [phone] 04/07/2025 9:00 AM EDT Office Visit Bariatric Surgery [facility] [address] [phone] Ashlyn Marcus MD [address] [phone] Health Maintenance Due Date Last Done Comments Diabetes: Annual Foot Exam 1965 Diabetes: Annual Retina Eye Exam 1965 DTaP,Tdap,and Td Vaccines (1 - Tdap) 1974 Zoster Vaccines (1 of 2) 2005 RSV Immunization Patients 60+ Years Old (1 - Risk 60-74 years 1-dose series) 2015 Cholesterol Screening (Lipid Panel) 09/08/2022 Colorectal Cancer Screening: Colonoscopy 09/08/2022 Depression Screening 09/08/2022 Diabetes: Annual Urine Albumin-Creatinine Ratio (uACR) 09/08/2022 Falls Risk Assessment 09/08/2022 Hepatitis C Screening 09/08/2022 Medicare Annual Wellness Visit 09/08/2022 Social Influencers of Health Screening 09/08/2022 COVID-19 Vaccine ( season) 2024 Influenza Vaccine (#1) 2024 Diabetes: Blood Sugar Control Test (HGBA1C) 01/22/2025 07/24/2024 Diabetes: Annual GFR (Glomerular Filtration Rate) 07/24/2025 07/24/2024 Hypertension/CHF/CAD Annual BMP Blood Test 07/24/2025 07/24/2024 Breast Cancer Screening 10/22/2026 10/22/19, 09/04/2023, 08/22/2022, Additional history exists Osteoporosis Screening (Bone Density Screening) 05/29/2033 05/29/2023 Pneumococcal Vaccine: 65+ Years Completed 07/24/2023, 03/31/2008 HIB Vaccines Aged Out No longer eligi ble based on patient's age to complete this topic HPV Vaccines Aged Out No longer eligi ble based on patient's age to complete this topic Hepatitis A Vaccines Aged Out No long er eligible based on patient's age to complete this topic Hepatitis B Vaccines Aged Out No long er eligible based on patient's age to complete this topic IPV Vaccines Aged Out No longer eligi ble based on patient's age to complete this topic MMR Vaccines Aged Out No longer eligi ble based on patient's age to complete this topic Meningococcal ACWY Vaccine Aged Out N o longer eligible based on patient's age to complete this topic RSV Immunization Patients Under 20 months Aged Out No longer eligible based on patient's age to complete this topic Varicella Vaccines Aged Out No longer eligible based on patient's age to complete this topic Procedures Procedure Name Priority Date/Time Associated Diagnosis Comments MG MAMMO DIGITAL SCREENING W CURT BILAT Routine 10/22/2024 11:25 AM EST Encounter for screening mammogram for breast cancer VAS US DUPLEX LOWER EXT VENOUS RIGHT STAT 08/28/2024 2:38 PM EST Pain TRIIODOTHYRONINE FREE Routine 08/03/2024 3:03 PM EST Paresthesia FREE THYROXINE WITH REFLEX TO FREE TRIIODOTHYRONINE Routine 08/03/2024 3:03 PM EST Paresthesia VITAMIN B12 Routine 08/03/2024 3:03 PM EST Paresthesia THYROID STIMULATING HORMONE WITH REFLEX TO FREE T4 AND FREE T3 Routine 08/03/2024 3:03 PM EST Paresthesia FOLATE Routine 08/03/2024 3:03 PM EST Paresthesia LETTY DEXA AXIAL SKELETON Routine 05/29/20 7:59 AM EDT Asymptomatic menopausal state from Last 3 Months or Most Recently Relevant to Health Maintenance Results * MG Mammo Digital Screening w [...] Signed Date: 10/22/2024 13:08 ET Workstation ID: [id number] Transcribed By: Self Edit Transcribed Date: 10/22/2024 [...] Date: 10/22/2024 13:02 ET Assigned Physician: Lopez Miarnda Reviewed and Electronically Signed By: Lopez Miranda Signed Date: 10/22/2024 13:08 ET Workstation ID: [id number] Transcribed By: Self Edit Transcribed Date: 10/22/2024 13:02 ET Self Referral Sppl IMG BI PROCEDURES * Vascular US Duplex Lower Extremity Venous Right (08/28/2024 2:38 PM EST) Anatomical Region Laterality Modality Vascular, Abdomen Ultrasound 08/28/2024 2:59 PM EST Impressions 08/28/2024 3:06 PM EST NO RIGHT LOWER EXTREMITY DEEP VENOUS THROMBOSIS. -------- FINAL REPORT -------- Dictated By: APOLINAR PEREZ Dictated Date: 08/28/2024 14:59 ET Assigned Physician: APOLINAR PEREZ Reviewed and Electronically Signed By: APOLINAR PEREZ Signed Date: 08/28/2024 15:06 ET Workstation ID: [id number] Transcribed By: Self Edit Transcribed Date: 08/28/2024 14:59 ET Narrative 08/28/2024 3:06 PM EST PROCEDURE: VAS US DUPLEX LOWER EXT VENOUS RIGHT INDICATION: Pain TECHNIQUE: 2-D and color Doppler imaging of the right lower extremity venous vasculature with compression and augmentation maneuvers. COMPARISON: No priors available. FINDINGS: There is normal flow, compression, and augmentation from the common femoral through the popliteal vein. Visualized calf veins are patent Procedure Note Apolinar Perez MD - 08/28/2024 PROCEDURE: VAS US DUPLEX LOWER EXT VENOUS RIGHT INDICATION: Pain TECHNIQUE: 2-D and color Doppler imaging of the right lower extremityvenous vasculature with compression and augmentation maneuvers. COMPARISON: No priors available. FINDINGS: There is normal flow, compression, and augmentation from the commonfemoral through the popliteal vein. Visualized calf veins are patent IMPRESSION: NO RIGHT LOWER EXTREMITY DEEP VENOUS THROMBOSIS. -------- FINAL REPORT -------- Dictated By: APOLINAR PEREZ Dictated Date: 08/28/2024 14:59 ET Assigned Physician: APOLINAR PEREZ Reviewed and Electronically Signed By: APOLINAR PEREZ Signed Date: 08/28/2024 15:06 ET Workstation ID: [id number] Transcribed By: Self Edit Transcribed Date: 08/28/2024 14:59 ET Christiano MARSHALL CV VASCULAR PROCEDUR ES * (ABNORMAL) Thyroid stimulating hormone with reflex to free t4 and free t3 (08/03/2024 3:03 PM EST) TSH 0.35(L) 0.40 - 4.00 mcIU/mL LAB CHEMISTRY METHOD 08/03/2024 7:45 PM EST [facility] Blood Venous blood specimen / Unknown Venipuncture / Unknown 08/03/2024 3:03 PM EST 08/03/2024 3:04 PM EST Franny Campos [facility] BLOOD ORDERAB LES [facility] [address] [place] [address], [place] [phone] * Free thyroxine with reflex to free triiodothyronine (08/03/2024 3:03 PM EST) Pathologist [facility] Free T4 1.14 0.70 - 1.80 ng/dL LAB CHEMISTRY METHOD 08/03/2024 8:10 PM EST [facility] Blood Venous blood specimen / Unknown Venipuncture / Unknown 08/03/2024 3:03 PM EST 08/03/2024 3:04 PM EST Franny Campos [facility] BLOOD ORDERAB LES [facility] [address] [place] [address], [place] [phone] * Triiodothyronine free (08/03/2024 3:03 PM EST) T3, Free 311 230 - 420 pcg/dL LAB CHEMISTRY METHOD 08/03/2024 8:35 PM EST [facility] Blood Venous blood specimen / Unknown Venipuncture / Unknown 08/03/2024 3:03 PM EST 08/03/2024 3:04 PM EST Franny Campos [facility] LAB BLOOD ORDERAB LES Performing Organization Address City/[facility]/ZIP Co de Phone Number [facility] [address] [place] [address], [place] [phone] * Folate (08/03/2024 3:03 PM EST) Pathologist [facility] Folate 16.3 2.8 - 17.0 ng/ml LAB CHEMISTRY METHOD 08/03/2024 8:00 PM EST [facility] Blood Venous blood specimen / Unknown Venipuncture / Unknown 08/03/2024 3:03 PM EST 08/03/2024 3:04 PM EST Franny Campos [facility] LAB BLOOD ORDERAB LES Performing Organization Address [facility] Co de Phone Number [facility] [address] [place] [address], [place] [phone] * (ABNORMAL) Vitamin B12 (08/03/2024 3:03 PM EST) Pathologist [facility] Vitamin B-12 968(H) 250 - 900 pcg/mL LAB CHEMISTRY METHOD 08/03/2024 8:00 PM EST [facility] Blood Venous blood specimen / Unknown Venipuncture / Unknown 08/03/2024 3:03 PM EST 08/03/2024 3:04 PM EST Franny Campos [facility] [employer] [employer] LAB BLOOD ORDERAB LES Performing Organization Address City/[facility]/ZIP Co de Phone Number [facility] [address] [place] [address], [place] [phone] * LETTY DEXA AXIAL SKELETON (05/29/2023 7:59 AM EDT) Anatomical Region Laterality Modality Mammography 05/28/2023 12:5 1 PM EDT Narrative 05/29/2023 7:59 AM EDT [facility] Diagnostic Imaging Department [address] [place] [id number] Patient: ??ROLANDO VARGAS ?/Age/Sex: 1955 Unit#: ??[id number] ? Location/Status: ??SPDIMAM/REG CLI ? Mnemonic/Ordering Site: ??MAMDEXAAX/SPMAM Ordering Physician: ??YINKA STONE CNM [facility] Dexa Axial Skeleton - 05/28/23 - 1321 Report Status:Signed HISTORY: ??The patient is a 67-year-old postmenopausal female on chronic glucocorticoid therapy, with clinical concern for metabolic bone disease. FINDINGS: ??Dual energy x-ray absorptiometry of the lumbar spine and femurs is performed. The mean bone mineral density at L2-4 is 1.212 gm/cm2 which is 101% of that of young normals and 107% of that of age matched controls. This yields a T-score of 0.1 and a Z-score of 0.7 and there is therefore no evidence of osteoporosis or osteopenia here. The mean bone mineral density of the femurs bilaterally is 1.141 gm/cm2 which is 113% of that of young normals and 122% of that of age matched controls. ??This yields a T-score of 1.1 and a Z-score of 1.7 and there is therefore no evidence of osteoporosis or osteopenia here. IMPRESSION: 1. There is no evidence of osteoporosis or osteopenia. ??There has been an increase of 6.6% in bone mineral density in the lumbar spine since the prior examination of 12/27/2016. ??There has been an increase of 3.7% in bone mineral density in the right femur and an increase of 2.9% in bone mineral density in the left femur. 2. FRAX analysis yields a 10-year probability of major osteoporotic fracture of 10.7% and a 10-year probability of hip fracture of 0.8%. Code 82387 Dictating Physician: ??WALDEMAR HANEY MD Electronically Signed by: ??WALDEMAR HANEY MD Dic Date/Time: ??05/29/23 0758 Sign date/Time: ??05/29/23 0759 Procedure Note Waldemar Haney MD - 11/05/2023 [facility] Diagnostic Imaging Department [address] [place] [address] Patient: ROLANDO VARGAS./Age/Sex: 1955 - 67 - F Unit#: [id number] Location/Status: [facility] Ordering Physician: YINKA STONE CNM [facility] Dexa Axial Skeleton - 05/28/23 - 1321 Report Status:Signed HISTORY: The patient is a 67-year-old postmenopausal female on chronic glucocorticoid therapy, with clinical concern for metabolic bonedisease. FINDINGS: Dual energy x-ray absorptiometry of the lumbar spine and femursis performed. The mean bone mineral density at L2-4 is 1.212 gm/cm2 which is101% of that of young normals and 107% of that of age matched controls. Thisyields a T-score of 0.1 and a Z-score of 0.7 and there is therefore no evidenceof osteoporosis or osteopenia here. The mean bone mineral density of the femurs bilaterally is 1.141 gm/fu7qhrfi is 113% of that of young normals and 122% of that of age matched controls.This yields a T-score of 1.1 and a Z-score of 1.7 and there is therefore noevidence of osteoporosis or osteopenia here. IMPRESSION: 1. There is no evidence of osteoporosis or osteopenia. There has beenan increase of 6.6% in bone mineral density in the lumbar spine since theprior examination of 12/27/2016. There has been an increase of 3.7% in bonemineral density in the right femur and an increase of 2.9% in bone mineral densityin the left femur. 2. FRAX analysis yields a 10-year probability of major osteoporoticfracture of 10.7% and a 10-year probability of hip fracture of 0.8%. Code 73098 Dictating Physician: WALDEMAR HANEY MD Electronically Signed by: WALDEMAR HANEY MD Dic Date/Time: 05/29/23 0758 Sign date/Time: 05/29/23 0759 Yinka Stone [facility] IM BI PROCEDURES from Last 3 Months or Most Recently Relevant to Health Maintenance Advance Directives Documents on File Type Date Recorded Patient Integrated Marketing Intern Expl anation Health Care Decision (hx) 07/27/2018 AD GAVIRIA DIRECTIVE Health Care Decision (hx) 07/27/2018 AD GAVIRIA DIRECTIVE Health Care Decision (hx) 07/27/2018 AD GAVIRIA DIRECTIVE Health Care Decision (hx) 07/27/2018 AD GAVIRIA DIRECTIVE Health Care Decision (hx) 07/27/2018 AD GAVIRIA DIRECTIVE Health Care Decision (hx) 07/27/2018 AD GAVIRIA DIRECTIVE Health Care Decision (hx) 07/27/2018 AD GAVIRIA DIRECTIVE Health Care Decision (hx) 07/27/2018 AD GAVIRIA DIRECTIVE Health Care Decision (hx) 07/27/2018 AD GAVIRIA DIRECTIVE Health Care Decision (hx) 07/27/2018 AD GAVIRIA DIRECTIVE Health Care Decision (hx) 07/27/2018 AD GAVIRIA DIRECTIVE Health Care Decision (hx) 07/27/2018 AD GAVIRIA DIRECTIVE Health Care Decision (hx) 07/27/2018 AD GAVIRIA DIRECTIVE Health Care Decision (hx) 07/27/2018 AD GAVIRIA DIRECTIVE Health Care Decision (hx) 07/27/2018 AD GAVIRIA DIRECTIVE Health Care Decision (hx) 07/27/2018 AD GAVIRIA DIRECTIVE Health Care Decision (hx) 07/27/2018 AD GAVIRIA DIRECTIVE Health Care Decision (hx) 07/27/2018 AD GAVIRIA DIRECTIVE Health Care Decision (hx) 07/27/2018 AD GAVIRIA DIRECTIVE Health Care Decision (hx) 07/27/2018 AD GAVIRIA DIRECTIVE Health Care Decision (hx) 07/27/2018 AD GAVIRIA DIRECTIVE Health Care Decision (hx) 07/27/2018 AD GAVIRIA DIRECTIVE Health Care Decision (hx) 07/27/2018 AD GAVIRIA DIRECTIVE Health Care Decision (hx) 07/27/2018 AD GAVIRIA DIRECTIVE Health Care Decision (hx) 07/27/2018 AD GAVIRIA DIRECTIVE Health Care Decision (hx) 07/27/2018 AD GAVIRIA DIRECTIVE Health Care Decision (hx) 07/27/2018 AD GAVIRIA DIRECTIVE Health Care Decision (hx) 07/27/2018 AD GAVIRIA DIRECTIVE Health Care Decision (hx) 07/27/2018 AD GAVIRIA DIRECTIVE Health Care Decision (hx) 07/27/2018 AD GAVIRIA DIRECTIVE Health Care Decision (hx) 07/27/2018 AD GAVIRIA DIRECTIVE Health Care Decision (hx) 07/27/2018 AD GAVIRIA DIRECTIVE Health Care Decision (hx) 07/27/2018 AD GAVIRIA DIRECTIVE Health Care Decision (hx) 07/27/2018 AD GAVIRIA DIRECTIVE Health Care Decision (hx) 07/27/2018 AD GAVIRIA DIRECTIVE Health Care Decision (hx) 07/27/2018 AD GAVIRIA DIRECTIVE Care Teams Manager Oracle Database Relationship Specialty Start Date End Date Charo Chakraborty MD [address] [place] [phone] PCP - General Internal Medicine 09/25/24
== END 2024-10-30 11:49 | disposition home or self-care (01) ==
PROVIDERS: PCP Internal Medicine; Visit Provider Hospitalist
DX: J45.50 Severe persistent asthma, uncomplicated (principal); R05.2 Subacute cough; G47.33 Obstructive sleep apnea (adult) (pediatric); F51.01 Primary insomnia; R06.09 Other forms of dyspnea; R53.83 Other fatigue
CPT/HCPCS: 99214; G2211

== ENCOUNTER 2024-10-30 10:44 | Outpatient (REF) | payer OTHER, SELFPAY ==
--- NOTE | ~2024-10-30 | XR_ITS ---
CLINICAL HISTORY: R05.2 - Subacute cough 2 view chest x-ray Comparison: 03/27/2024 Findings: The lungs are clear. Normal size heart. No acute fracture. IMPRESSION: 1. No acute findings. This document has been electronically signed by: Kayden Sheffield MD on 10/30/2024 18:01:39
--- OUTSIDE RECORDS SUMMARY | 2024-10-30 12:29 | XMS_ITS | Encounter Summary ---
Author Organization [employer] Address [address] [place] [address] Care Team Providers Care Deposit Clerk Name Role Phone Charo Chakraborty MD Primary Care Provider [phone] Reason for Visit * Reason Comments Follow-up Encounter Details Date Type Department Care Team ([facility] st Contact Info) Description 10/23/2024 9:00 AM EST Office Visit Internal Medicine - [place] 175 [facility] [address] [place] [phone] Charo Chakraborty MD 175 [facility] 200 [place] [phone] Mild intermittent asthma without complication (Primary Dx); [...] 06/15/2020 Severe obesity (BMI 35.0-39.9) with comorbidity ([facility]) 02/02/2019 Constipation 04/23/2018 TONY (obstructive sleep apnea) 03/25/2018 Anxiety 03/10/2018 Depression 03/10/2018 Hypertension 03/10/2018 Hypertriglyceridemia 03/10/2018 Insomnia 03/10/2018 Perennial allergic rhinitis 03/10/2018 Urinary incontinence 03/10/2018 Venous insufficiency 03/10/2018 Vitamin D deficiency 03/10/2018 GERD (gastroesophageal reflux disease) 02/19/2018 Asthma 02/18/2018 Chronic obstructive pulmonary disease (COPD) ([facility]) 02/18/2018 Diabetes mellitus type 2 with neurological manifestations ([facility]) 02/18/2018 Panic attack 04/08/2017 Osteoarthrosis 05/17/2015 Past Surgical History: Procedure Laterality Date ANKLE SURGERY Right 2017 PROCEDURE: HISTORICAL ANKLE SURGERY; COMMENT: medial malleolar fracture SECTION PROCEDURE: HISTORICAL DELIVERY; COMMENT: x3 COLONOSCOPY 05/24/2020 PROCEDURE: HISTORICAL COLONOSCOPY; COMMENT: tubular adenoma ESOPHAGOGASTRODUODENOSCOPY PROCEDURE: [place] EGD TRANSORAL BIOPSY SINGLE/MULTIPLE; COMMENT: Performed in [...] (BULK) 100 each 11 blood sugar diagnostic (AdStageuch Verio test strips) test strip USE DAILY [...] spray Administer 2 sprays into affected nostril(s). dbzmwawpmly-pvklimmvpibh-vumckhgose (Trelegy Ellipta) 100-62.5-25 mcg inhaler Inhale 1 [...] 1:00 PM EDT Office Visit Bariatric Surgery [facility] [address] [phone] Maira Zurita MD [address] [address] 04/07/2025 9:00 AM EDT Office Visit Bariatric Surgery [facility] [address] [phone] Ashlyn Marcus MD [address] [phone] documented as of this encounter Visit Diagnoses [...] documented as of this encounter Care Teams Deposit Clerk Relationship Specialty Start Date End Date Charo Chakraborty MD [address] [place] [phone] PCP - General Internal Medicine 09/25/24 documented as of this encounter
--- OUTSIDE RECORDS SUMMARY | 2024-10-30 12:29 | XMS_ITS | Encounter Summary ---
Author Organization [employer] Address [address] [place] [address] Care Team Providers Care Telecommunications Support Name Role Phone Charo Chakraborty MD Primary Care Provider [phone] Reason for Visit * Reason Comments Follow-up 6 Month FU Encounter Details Date Type Department Care Team (Late st Contact Info) Description 10/07/2024 10:30 AM EST Office Visit Bariatric Surgery - [place] 175 [facility] [address] [place] [phone] Ashlyn Marcus MD 175 [facility] 120 [place] [phone] Ventral hernia without obstruction or gangrene (Primary [...] Visit Bariatric Surgery [facility] [address] [facility] [address] [phone] Maira Zurita MD [address] [address] 04/07/2025 9:00 AM EDT Office Visit Bariatric Surgery [facility] [address] [facility] [address] [place] [phone] Ashlyn Marcus MD [address] [facility] [address] [phone] documented as of this encounter Visit Diagnoses Diagnosis Ventral hernia without obstruction or gangrene- Primary Unspecified ventral hernia without mention of obstruction or gangrene Lipoma of torso Obesity (BMI 30-39.9) documented in this encounter Care Teams Telecommunications Support Relationship Specialty Start Date End Date Charo Chakraborty MD [address] [facility] [address] [facility] 200 [place] [phone] PCP - General Internal Medicine 09/25/24 documented as of this encounter
--- OUTSIDE RECORDS SUMMARY | 2024-10-30 12:29 | XMS_ITS | Clinical Summary ---
Author Organization [address] Address 175 [place] [address] Phone Care Team Providers Care Hourly Sign Language Interpreter Name Role Phone Charo Chakraborty MD Primary Care Provider [phone] Allergies Active Allergy Reactions Criticality Noted Date [...] TONY (obstructive sleep apnea) 03/25/2018 Overview (07/29/2024): [facility] Polysomnogram: Date 07/13/2020; Wt 217#; [...] AM EST Office Visit Internal Medicine - [address] [place] [phone] Charo Chakraborty MD Mild intermittent asthma without complication (Primary Dx); Gastroesophageal reflux disease with esophagitis without hemorrhage 10/22/2024 1:15 PM EST Office Visit Bariatric Surgery - [place] [address] [phone] Maira Zurita MD Class 1 obesity due to excess calories with serious comorbidity and body mass index (BMI) of 34.0 to 34.9 in adult (Primary Dx) 10/22/2024 10:42 AM EST - 10/22/2024 11:59 PM EST Hospital En[facility] [address] [phone] Encounter for screening mammogram for breast cancer Discharge Disposition: Home or Self Care 10/20/2024 Telephone Internal Medicine - [address] [phone] Charo Chakraborty MD prior auth 10/07/2024 10:30 AM EST Office Visit Bariatric Surgery - [address] [phone] Ashlyn Marcus MD Ventral hernia without obstruction or gangrene (Primary Dx); Lipoma of torso; Obesity (BMI 30-39.9) 09/03/2024 12:00 PM EST Office Visit Internal Medicine - [address] [phone] Charo Chakraborty MD Pain in both lower extremities (Primary Dx) 08/28/2024 1:33 PM EST - 08/28/2024 3:[address] [facility] Emergency [address] [place] [phone] Pain (Primary Dx); Right calf pain Discharge Disposition: Home or Self Care 08/28/2024 Telephone Internal Medicine - [address] [phone] Charo Chakraborty MD Hospital Follow-up 08/06/2024 Telephone Internal Medicine [address] [phone] Charo Chakraborty MD Insurance call from Last 3 Months Surgical History Surgery Date Site/Laterality Comments ANKLE SURGERY 2016 Right PROCEDURE: HISTORICAL ANKLE SURGERY; COMMENT: medial malleolar fracture SECTION PROCEDURE: HISTORICAL DELIVERY; COMMENT: x3 HYSTERECTOMY PROCEDURE: HISTORICAL HYSTERECTOMY HERNIA REPAIR PROCEDURE: HISTORICAL HERNIA REPAIR/ING COLONOSCOPY 05/24/2020 PROCEDURE: HISTORICAL COLONOSCOPY; COMMENT: tubular adenoma ESOPHAGOGASTRODUODENOSCOPY PROCEDURE: [place] EGD TRANSORAL BIOPSY SINGLE/MULTIPLE; COMMENT: Performed in February 2021 during hospitalization Medical History Medical History Date Comments Asthma 02/18/2018 DX:Asthma Chronic obstructive pulmonar y disease (COPD) ([facility]) 02/18/2018 DX:Chronic obstructive pulmo nary disease (COPD) ([facility]) GERD (gastroesophageal reflux disease) 8 DX:GERD (gastroesophageal reflux disease) Allergic rhinitis 03/10/2018 DX:Allergic rh initis Anxiety 03/10/2018 DX:Anxiety Depression 03/10/2018 DX:Depression Diabetes mellitus type 2 wit h neurological manifestations ([facility]) 02/18/2018 DX:Diabetes jacob itus type 2 with neurological manifestations ([facility]) Hypertension 03/10/2018 DX:Hypertension Hypertriglyceridemia 03/10/2018 DX:Hypertri glyceridemia Insomnia 03/10/2018 DX:Insomnia Urinary incontinence 03/10/2018 DX:Urinary incontinence Venous insufficiency 03/10/2018 DX:Venous i nsufficiency Vitamin D deficiency 03/10/2018 DX:Vitamin D deficiency Diabetic peripheral neuropathy ([facility]) 016 DX:Diabetic peripheral neuropathy ([facility]) Panic attack 04/08/2017 DX:Panic attack Osteoarthrosis [...] 1:00 PM EDT Office Visit Bariatric Surgery [facility] [address] [phone] Maira Zurita MD [address] [address] 04/07/2025 9:00 AM EDT Office Visit Bariatric Surgery [facility] [address] [phone] Ashlyn Marcus MD [address] [phone] Health Maintenance Due Date Last Done Comments [...] Signed Date: 10/22/2024 13:08 ET Workstation ID: [id number] Transcribed By: Self Edit Transcribed Date: 10/22/2024 [...] Signed Date: 10/22/2024 13:08 ET Workstation ID: [id number] Transcribed By: Self Edit Transcribed Date: 10/22/2024 [...] Signed Date: 08/28/2024 15:06 ET Workstation ID: [id number] Transcribed By: Self Edit Transcribed Date: 08/28/2024 [...] Signed Date: 08/28/2024 15:06 ET Workstation ID: [id number] Transcribed By: Self Edit Transcribed Date: 08/28/2024 14:59 ET Christiano MARSHALL CV VASCULAR PROCEDUR ES * (ABNORMAL) Thyroid stimulating hormone with reflex to free t4 and free t3 (08/03/2024 3:03 PM EST) TSH 0.35(L) 0.40 - 4.00 mcIU/mL LAB CHEMISTRY METHOD 08/03/2024 7:45 PM EST [facility] Blood Venous blood specimen / Unknown Venipuncture / Unknown 08/03/2024 3:03 PM EST 08/03/2024 3:04 PM EST Franny Campos [facility] LAB BLOOD ORDERAB LES [facility] [address] [place] [address], [place] [phone] * Free thyroxine with reflex to free triiodothyronine (08/03/2024 3:03 PM EST) Pathologist [facility] Free T4 1.14 0.70 - 1.80 ng/dL LAB CHEMISTRY METHOD 08/03/2024 8:10 PM EST [facility] Blood Venous blood specimen / Unknown Venipuncture / Unknown 08/03/2024 3:03 PM EST 08/03/2024 3:04 PM EST Franny Campos [facility] LAB BLOOD ORDERAB LES [facility] [address] [place] [address], [place] [phone] * Triiodothyronine free (08/03/2024 3:03 PM EST) T3, Free 311 230 - 420 pcg/dL LAB CHEMISTRY METHOD 08/03/2024 8:35 PM EST [facility] Blood Venous blood specimen / Unknown Venipuncture / Unknown 08/03/2024 3:03 PM EST 08/03/2024 3:04 PM EST Franny Campos [employer] LAB BLOOD ORDERAB LES Performing Organization Address City/[facility]/ZIP Co de Phone Number [facility] [address] [place] [address], [place] [phone] * Folate (08/03/2024 3:03 PM EST) Pathologist [facility] Folate 16.3 2.8 - 17.0 ng/ml LAB CHEMISTRY METHOD 08/03/2024 8:00 PM EST [facility] Blood Venous blood specimen / Unknown Venipuncture / Unknown 08/03/2024 3:03 PM EST 08/03/2024 3:04 PM EST Franny Campos [employer] LAB BLOOD ORDERAB LES Performing Organization Address [facility] Co de Phone Number [facility] [address] [place] [address], [place] [phone] * (ABNORMAL) Vitamin B12 (08/03/2024 3:03 PM EST) Pathologist [facility] Vitamin B-12 968(H) 250 - 900 pcg/mL LAB CHEMISTRY METHOD 08/03/2024 8:00 PM EST [facility] Blood Venous blood specimen / Unknown Venipuncture / Unknown 08/03/2024 3:03 PM EST 08/03/2024 3:04 PM EST Franny Campos [employer] LAB BLOOD ORDERAB LES Performing Organization Address City/[facility]/ZIP Co de Phone Number [facility] [address] [place] [address], [place] [phone] * LETTY DEXA AXIAL SKELETON (05/29/2023 7:59 AM EDT) Anatomical Region Laterality Modality Mammography 05/28/2023 12:5 1 PM EDT Narrative 05/29/2023 7:59 AM EDT [facility] Diagnostic Imaging Department [address] [place] [address] Patient: ??ROLANDO VARGAS ?/Age/Sex: 1955 Unit#: ??[id number] ? Location/Status: ??SPDIMAM/REG CLI ? Mnemonic/Ordering Site: ??[facility] Ordering Physician: ??YINKA STONE CNM [facility] Dexa Axial Skeleton - 05/28/23 - 1321 [...] probability of hip fracture of 0.8%. Code 65074 Dictating Physician: ??WALDEMAR HANEY MD Electronically Signed by: ??WALDEMAR HANEY MD Dic Date/Time: ??05/29/23 0758 Sign date/Time: ??05/29/23 0759 Procedure Note Waldemar Haney MD - 11/05/2023 [facility] Diagnostic Imaging Department [address] [place] [address] Patient: ROLANDO VARGAS./Age/Sex: 1955 - 67 - F Unit#: [id number] Location/Status: [facility] Mnemonic[facility] Ordering Physician: YINKA STONE CNM Letty Dexa [...] density of the femurs bilaterally is 1.141 gm/ab5ifuev is 113% of that of young normals [...] probability of hip fracture of 0.8%. Code 87506 Dictating Physician: WALDEMAR HANEY MD Electronically Signed by: WALDEMAR HANEY MD Dic Date/Time: 05/29/23 0758 Sign date/Time: 05/29/23 0759 Yinka Stone [facility] IM BI PROCEDURES from Last 3 Months or Most Recently Relevant to Health Maintenance Advance Directives Documents on File Type Date Recorded Patient Wide Area Network Engineer Expl anation Health Care Decision (hx) 07/27/2018 [...] (hx) 07/27/2018 AD GAVIRIA DIRECTIVE Care Teams Hourly Sign Language Interpreter Relationship Specialty Start Date End Date Charo Chakraborty MD [address] [place] [phone] PCP - General Internal Medicine 09/25/24
--- OUTSIDE RECORDS SUMMARY | 2024-10-30 12:29 | XMS_ITS | Encounter Summary ---
Author Organization [employer] Address [address] [place] [address] Care Team Providers Care Car Runner Name Role Phone Charo Chakraborty MD Primary Care Provider [phone] Reason for Referral * Imaging (Routine) - Closed Specialty Diagnoses / Procedures Referred By Contac t Referred To Contact Radiology Diagnoses Encounter for screening mammogram for breast cancer Procedures MG Mammo Digital Screening w Curt bilat [facility], Self Referral [facility] Referral ID Status Reason Start Date Expiration Date Visits Re quested Visits Authorized [id number] Closed 10/16/2024 10/16/2025 1 1 * Imaging (Routine) - Closed Specialty Diagnoses / Procedures Referred By Contac t Referred To Contact Radiology Diagnoses Encounter for screening mammogram for breast cancer Procedures MG Mammo Digital Screening w Curt bilat [facility], [facility] Referral [facility] Referral ID Status Reason Start Date Expiration Date Visits Re quested Visits Authorized [id number] Closed 10/16/2024 10/16/2025 1 1 Reason for Visit * Imaging (Routine) - Closed Specialty Diagnoses / Procedures Referred By Contac t Referred To Contact Radiology Diagnoses Encounter for screening mammogram for breast cancer Procedures MG Mammo Digital Screening w Curt bilat [facility], Self Referral [facility] Referral ID Status Reason Start Date Expiration Date Visits Re quested Visits Authorized [id number] Closed 10/16/2024 10/16/2025 1 1 Encounter Details Date Type Department Care Team (Latest Contact Info) Description 10/22/2024 10:42 AM EST - 10/22/2024 11:59 PM EST Hospital [facility] [address] [phone] Encounter for screening mammogram for [...] 1:00 PM EDT Office Visit Bariatric Surgery [address] [phone] Maira Zurita MD [address] [address] 04/07/2025 9:00 AM EDT Office Visit Bariatric Surgery [facility] [address] [phone] Ashlyn Marcus MD [address] [phone] documented as of this encounter Procedures Procedure [...] Signed Date: 10/22/2024 13:08 ET Workstation ID: [id number] Transcribed By: Self Edit Transcribed Date: 10/22/2024 [...] Signed Date: 10/22/2024 13:08 ET Workstation ID: [id number] Transcribed By: Self Edit Transcribed Date: 10/22/2024 13:02 ET Self Referral [facility] IMG BI PROCEDURES documented in this encounter Visit Diagnoses Diagnosis Encounter for screening mammogram for breast cancer documented in this encounter Care Teams Car Runner Relationship Specialty Start Date End Date Charo Chakraborty MD [address] [place] [phone] PCP - General Internal Medicine 09/25/24 documented as of this encounter
--- OUTSIDE RECORDS SUMMARY | 2024-10-30 12:29 | XMS_ITS | Encounter Summary ---
Author Organization [employer] Address [address] [place] [address] Care Team Providers Care Joiner Apprentice Name Role Phone Charo Chakraborty MD Primary Care Provider [phone] Reason for Visit * Reason Comments Follow-up 2 month follow up Encounter Details Date Type Department Care Team (Late st Contact Info) Description 10/22/2024 1:15 PM EST Office Visit Bariatric Surgery - [place] [address] [facility] [address] [place] [address] Maira Zurita MD 175 [facility] [address] [place] [address] Class 1 obesity due to excess calories [...] 06/15/2020 Severe obesity (BMI 35.0-39.9) with comorbidity ([facility]) 02/02/2019 Constipation 04/23/2018 TONY (obstructive sleep apnea) 03/25/2018 Anxiety 03/10/2018 Depression 03/10/2018 Hypertension 03/10/2018 Hypertriglyceridemia 03/10/2018 Insomnia 03/10/2018 Perennial allergic rhinitis 03/10/2018 Urinary incontinence 03/10/2018 Venous insufficiency 03/10/2018 Vitamin D deficiency 03/10/2018 GERD (gastroesophageal reflux disease) 02/19/2018 Asthma 02/18/2018 Chronic obstructive pulmonary disease (COPD) ([facility]) 02/18/2018 Diabetes mellitus type 2 with neurological manifestations ([facility]) 02/18/2018 Panic attack 04/08/2017 Osteoarthrosis 05/17/2015 PAST SURGICAL HISTORY: Past Surgical History: Procedure Laterality Date ANKLE SURGERY Right 2017 PROCEDURE: HISTORICAL ANKLE SURGERY; COMMENT: medial malleolar fracture SECTION PROCEDURE: HISTORICAL DELIVERY; COMMENT: x3 COLONOSCOPY 05/24/2020 PROCEDURE: HISTORICAL COLONOSCOPY; COMMENT: tubular adenoma ESOPHAGOGASTRODUODENOSCOPY PROCEDURE: MI EGD TRANSORAL BIOPSY SINGLE/MULTIPLE; COMMENT: Performed in [...] 1:00 PM EDT Office Visit Bariatric Surgery [facility] [address] [phone] Maira Zurita MD [address] [phone] 04/07/2025 9:00 AM EDT Office Visit Bariatric Surgery [facility] [address] [phone] Ashlyn Marcus MD [address] [phone] documented as of this encounter [...] documented as of this encounter Care Teams Joiner Apprentice Relationship Specialty Start Date End Date Charo Chakraborty MD [address] [phone] PCP - General Internal Medicine 09/25/24 documented as of this encounter
--- OUTSIDE RECORDS SUMMARY | 2024-10-30 12:29 | XMS_ITS | Encounter Summary ---
Author Organization [employer] Address [address] [place] [address] Care Team Providers Care Forging Press Operator Name Role Phone Charo Chakraborty MD Primary Care Provider [phone] Reason for Visit * Reason Onset Date Comments prior auth 10/20/2024 Encounter Details Date Type Department Care Team ([facility] st Contact Info) Description 10/20/2024 Telephone Internal Medicine - [place] [address] [facility] [address] [place] [phone] Charo Chakraborty MD 175 [facility] [address] [place] [phone] prior auth Social History Tobacco Use Types [...] complication associated with type 2 diabetes mellitus ([facility]) Apply topically 1 (one) time each day. Remove & discard patch within 12 hours or as directed by . 30 patch 1 10/23/2024 documented in this encounter Progress Notes * Heidi Rosa MA - 10/27/2024 3:30 PM EST Prior authorization for the lidocaine patch was approved Approved from 09/30/24 until 10/27/25 Approval faxed to [facility] [phone] * Heidi Rosa MA - 10/23/2024 1:39 PM EST This was already denied . Called [facility] and spoke with Cierra, we redid the [...] Pas Thank you Please reply back to [facility] (Prior Auth [place]) Heidi Campos [facility] Prior Authorization Ext [id number] * Alma Mandy - 10/20/2024 3:43 PM EST Cover My Meds Medication: lidocaine (LIDODERM) 5 % patch Wells code: [id number] LAST NAME: ELISHA : 1955 documented in this encounter Plan of Treatment Upcoming Encounters Date Type Department Care Team (Late st Contact Info) Description 01/21/2025 1:00 PM EDT Office Visit Bariatric Surgery [facility] [address] [phone] Maira Zurita MD [address] [phone] 04/07/2025 9:00 AM EDT Office Visit Bariatric Surgery [facility] [address] [phone] Ashlyn Marcus MD [address] [phone] documented as of this encounter Visit Diagnoses Diagnosis Other diabetic neurological complication associated with type 2 diabetes mellitus ([facility])- Primary documented in this encounter Discontinued Medications Medication Sig Discontinue Reason Start Date End Da te lidocaine (LIDODERM) 5 % patch APPLY ONE PATCH TOPICALLY EVERY 24 HOURS. APPLY FOR NO MORE THAN 12 HOURS IN ANY 24 HOUR PERIOD. (BULK) Reorder 09/20/2024 10/23/2024 documented as of this encounter Care Teams Forging Press Operator Relationship Specialty Start Date End Date Charo Chakraborty MD [address] [phone] PCP - General Internal Medicine 09/25/24 documented as of this encounter
== END 2024-10-30 10:45 | disposition home or self-care (01) ==
LOC: HO.XRAY 10:44
PROVIDERS: PCP Internal Medicine; Visit Provider Hospitalist
DX: R05.2 Subacute cough (principal); J45.50 Severe persistent asthma, uncomplicated; G47.33 Obstructive sleep apnea (adult) (pediatric); F51.01 Primary insomnia; R06.09 Other forms of dyspnea; R53.83 Other fatigue
CPT/HCPCS: 71046; 99212

== ENCOUNTER → 2024-10-30 11:57 | Outpatient (BNV) | payer OTHER, SELFPAY | PROVIDERS: PCP Internal Medicine; Visit Provider Specialist | DX: R05.2 Subacute cough (principal) | CPT/HCPCS: 71046 ==

== ENCOUNTER 2024-11-30 11:11 | Outpatient (AMB) | payer OTHER, SELFPAY ==
[2024-11-30 11:49] VITALS: PULSE 82; O2SAT 100; BMI 36.2
--- NOTE | 2024-11-30 11:49 | A.OFFVIS_ITS ---
Vital Signs 11/30/24 11:49 Height 5 ft 4 in Weight 211 lb BMI 36.2 Pulse 82 Pulse Source Pulse Oximeter Pulse Oximetry (%) 100 Oxygen Delivery Method Room Air Intake Visit Reasons: Follow up Intake Note: Patient presents for follow up. Compliance report on file and done on 10/29/24 Manager Bilingual Name: Juventino [id number] Information Interpreted: clinical only Allergies naproxen Allergy (Severe, Verified 11/30/24 11:53) Hives acetaminophen [From Percocet] Adverse Reaction (Severe, Verified 11/30/24 11:53) Hallucinations aspirin Adverse Reaction (Severe, Verified 11/30/24 11:53) Hives codeine Adverse Reaction (Severe, Verified 11/30/24 11:53) Itching ibuprofen [From Motrin IB] Adverse Reaction (Severe, Verified 11/30/24 11:53) Hives Iodinated Contrast Media Adverse Reaction (Severe, Verified 11/30/24 11:53) Hypertension mepolizumab [From Nucala] Adverse Reaction (Severe, Verified 11/30/24 11:53) Itching metformin Adverse Reaction (Severe, Verified 11/30/24 11:53) Difficulty Breathing montelukast [From Singulair] Adverse Reaction (Severe, Verified 11/30/24 11:53) Anxiety morphine Adverse Reaction (Severe, Verified 11/30/24 11:53) Hallucinations omalizumab [From Xolair] Adverse Reaction (Severe, Verified 11/30/24 11:53) Anaphylaxis oxycodone Adverse Reaction (Severe, Verified 11/30/24 11:53) Hallucinations pneumococcal vaccine Adverse Reaction (Severe, Verified 11/30/24 11:53) Hives prednisone Adverse Reaction (Severe, Verified 11/30/24 11:53) Itching tramadol Adverse Reaction (Severe, Verified 11/30/24 11:53) Hives accolate Adverse Reaction (Severe, Uncoded 10/30/24 11:11) Chest Pain PCN Adverse Reaction (Severe, Uncoded 10/30/24 11:11) Hives HPI Comments Details: 69 year old female follow up for migraines: Reports migraine, with 8/10 in severity, and 2 episodes usually per week. 2 weeks of headaches and she uses baclofen which helps a little. Migraine is a/w neck pain, nausea, vomiting, dizziness, phonophobia, photophobia and sensitivity to smells. She lays down for a few minutes which makes it better. She has a history of allergies to pet dander, pine, pollen, and environmental pollutants, which cause tearing and burning of the eyes. She continues to be forgetful, has brain fog, often has to trace her steps to remind herself of daily tasks. Her sleep is fragmented, goes to sleep at 11pm, gets up at 1am, and has a hard time falling asleep and is fatigued. She needs to be reassessed for TONY, doesn't remember the last time she had a study. Mask leaks a lot and needs liners for her mask. She loses her balance and feels like the room is spinning. She has numbness and tingling in bilateral feet which keeps her up at night. She had a fall last month did not sustain any injuries, however she did complete rehab with PT for balance. FORMERLY [facility], [facility]1983 Medical History Tachycardia Osteoarthritis Diabetic peripheral neuropathy Diabetes GERD (gastroesophageal reflux disease) Venous insufficiency Vitamin D deficiency Urinary incontinence Insomnia Hypertriglyceridemia HTN (hypertension) Anxiety Depression Lumbar spondylosis Tubular adenoma Dyspnea Chronic restrictive lung disease Asthma TONY (obstructive sleep apnea) Surgical History History of hernia repair H/O: hysterectomy Hx of cholecystectomy History of section Hx of appendectomy History of ankle surgery Family History Father CHF (congestive heart failure) Mother CHF (congestive heart failure) Asthma Brother Asthma Social History Alcohol intake: never Patient Tobacco Use Status: Never used Tobacco Review of Systems Const All systems reviewed & are unremarkable except as noted in HPI and below Physical Exam Vital Signs: Last Vital Signs Pulse 82 11/30/24 11:49 Pulse Ox 100 11/30/24 11:49 Oxygen Delivery Method Room Air 11/30/24 11:49 BMI result Body Mass Index 36.2 Const General: cooperative and no acute distress Nutritional Appearance: average body habitus Orientation/consciousness: patient oriented x3 HEENT Head: Yes normal to inspection Eyes Pupils: Equal, round and reactive pupils present, Pupils normal by confrontation and Pupil accommodation reflex normal Neck Neck: Yes full ROM and Yes supple Resp Effort & Inspection: normal respiratory effort and able to speak in complete sentences Neuro General: patient oriented x3 Cranial nerves: Yes CN's II-XII intact bilaterally, Yes Facial sensation intact/muscles of mastication intact, Yes Equal, round and reactive pupils present, Yes Midline tongue present, Yes Ability to bilaterally rotate head present and Yes Ability to bilaterally elevate shoulders present Gait exam (Neuro): Assistive device used (uses a cane to ambulate) Motor exam (neuro): 5/5 motor strength present throughout Deep tendon reflexes (DTR's): Right triceps reflex intensity grade: 2+, Left triceps reflex intensity grade: 2+, Rt Biceps (C5, C6): 2+, Left biceps reflex intensity grade: 2+, Right brachioradialis reflex intensity grade: 2+, Left brachioradialis reflex intensity grade: 2+, Right patellar reflex intensity grade: 2+, Left patellar reflex intensity grade: 2+, Right ankle reflex intensity grade: 2+ and Left ankle reflex intensity grade: 2+ Coordination: [id number] test normal Romberg Test: Negative Psych Appearance: grossly normal Mental Status: mental status grossly normal Results Reviewed Results Reviewed: HST Assessment & Plan Assessment & Plan (1) Migraine without aura: Code(s): G43.009 - Migraine without aura, not intractable, without status migrainosus Category: Medical Qualifiers: Status migrainosus presence: without status migrainosus Intractability: intractable Qualified Code(s): G43.019 - Migraine without aura, intractable, without status migrainosus (2) TONY (obstructive sleep apnea): Code(s): G47.33 - Obstructive sleep apnea (adult) (pediatric) Category: Medical (3) Fatigue: Code(s): R53.83 - Other fatigue Category: Medical Qualifiers: Fatigue type: unspecified Qualified Code(s): R53.83 - Other fatigue Plan For acute migraine headache treatment: Trial Ubrogepant (Ubrelvy) 100mg tab, 1/2 - 1 tab (50-100mg) at onset of headache, may repeat in 2 hours. Max of 2 tabs (200mg) per 24 hours. May adjunct with OTC Tylenol 650-1000mg q 4-6 hours prn. Do not take w/ Butalbital (Fioricet or Fiorinal). Potential adverse effects, include but are not limited to fatigue, nausea, dry mouth, constipation Previous acute migraine medication trials: none Acute migraine medication contraindications: All triptans and DHE d/t HTN, uncontrolled tachycardia. All NSAIDs d/t alllergy. For headache prevention medication: Magnesium 400 mg PO at bedtime daily. Baclofen 10mg qhs. Continue Losartan- ordered for HTN tx. Previous migraine prevention medication trials: no known others at this time Migraine prevention medication contraindications: beta-blockers d/t COPD. For BLE paresthesias: Complete the following labs for common etiologies: CBC/CMP TSH Folate Vitamin B12 Increase Gabapentin from 300mg bid and 600mg qhs to 300mg qam and 600mg bid (mid-day and QHS). Addendum- request for Ubrelvy was denied by insurance. Will trial pt on Purdy matriptan 100mg tab, 1/2 - 1 tab (50-100mg) at onset of headache, may repeat in 2 hours. Max of 2 tabs (200mg) per 24 hours. May adjunct with OTC Tylenol 650- 100mg q 4-6 hours prn. Potential adverse effects of triptans, include but are not limited to nausea, fatigue, chest tightness/tingling (usually passes within a few minutes), medication overuse headaches. Medications: Refilled zolpidem 10 mg PO BEDTIME PRN 30 tabs 3RF sleep 30 days gabapentin 1 cap in am, 2 caps at noon, 2 caps at night. 300 mg PO TID 150 caps 6RF 30 days sumatriptan succinate 50 - 100 mg orally at onset of headache, may repeat in 2 hrs PRN; max 2 tabs per day or 4 tabs/week (may take with Tylenol 12 tabs 6RF migraine headache 30 days ubrogepant (Ubrelvy) 1/2 to 1 tablet at onset of migraine, may repeat in two hours. 100 mg PO ONCE 16 tabs 6RF Migraine Headaches 30 days MDD Max daily dose 200 mg /day G43.009 - Migraine without aura, not intractable, without status migrainosus Patient Instructions: Sleep Hygiene emphasized TONY Compliance for f/u in 3 months Coding Level of Care Code Est Pt Level 4 (42502) Complex EM visit Add On G2211 Diagnoses Intractable migraine without aura and without status migrainosus G43.019 Status migrainosus presence: without status migrainosus Intractability: intractable TONY (obstructive sleep apnea) G47.33 Fatigue, unspecified type R53.83 Fatigue type: unspecified Time Spent (min) 40
--- OUTSIDE RECORDS SUMMARY | 2024-11-30 13:20 | XMS_ITS ---
Author Organization [facility] Address [address] [place] [address] Care Team Providers Care Associate Project Manager Name Role Phone JAXON AGUERO Unavailable [phone] Encounters Encounter Location Date Provider Diagnosis [facility] [address] [phone] 01/01/2024 JAXONJAKI POOLEJose Carlos ASSESSMENTS Encounter Date Diagnosis Assessment Notes Treatment Notes Treatment Clinical Notes [...] minimum of 6 months The most recent [place] Association of clinical endocrinologists and [place] [employer] of endocrinology guidelines recommend patients who [...] or arrhythmias In the setting of potential stimulant/amphetamin e use such as phentermine We have also [...] track activity level. Consider using apps like [employer], [employer], lose it, stick as needed for self-monitoring and weight management. Consider group exercises. Consider hiring a personal lines sales rep. Regular exercise is keene to sustainable health [...] counseling and psychiatry and Dr Oliveira at [employer]. We would like to cover regular topics [...] software and direct typing Please excuse inadvertent sr. social media & mobile manager or typing errors, or uncorrected word substitutions Although every attempt has been made by the provider to proofread this document, occasional misspellings and typographical errors may still be present Due to the previous pandemic, and the use of personal protective equipment (PPE) This may decrease voice recognition accuracy Inadvertent sr. social media & mobile manager errors may occur PLAN OF TREATMENT No Information Progress Notes * Jazlyn VARGASDOB: 5 (69 yo F)Acc No.[id number]:01/01/2024 Patient:??Jazlyn VARGAS Provider:??JAXON AGUERO NP :1955?Age:68 Y?Sex:Fe male Date:01/01/2024 Address:[address] [place], [place] [id number] Subjective: * Chief Complaints: * ? * HPI: ?Constitutional:? Patient is here today for a weight management consultation visit ?Patient seen and examined. ? Full past medical history, social history, family history, ?allergies and current medications were reviewed and updated. ?Body composition analysis reviewed today, as expected increased BMI, ?visceral adiposity, fat mass index, waist cirumference ?Good skeletal mass composition, Good water composition ?Caloric energy expenditure discussed ?we discussed the importance of protein calorie nutrition, maintaning muscle mass, vit b12, biotin, iron ?while on GLP-1 medications, dual incretins, appetitite suppressants ?#Weight Management ?01/01/2024: Weight lbs, BMI: ?Patient referred to us from . ?Patient works as ?Highest weight: lbs ?Lowest weight: lbs ?Goal weight: lbs ?TONY screening/[facility]/[place], * ?Metabolic workup:* ?Thyroid? No recent screening ?Diabetes? No recent screening ?Has not had an echocardiogram recently. ?Diet: ?Exercise: Currently steps daily. ?Non-smoker. ?ETOH use:. * ROS:?All Other Systems:?Review of Systems (ROS)??All others negative except those mentioned in HPI.? * Medical History:?? Objective: * Examination: ?General Examination: ?GENERAL APPEARANCE:??in no acute distress, well developed, well nourished.??HEAD:??normocephalic, atraumatic.??EYES:??pupils equal, round, reactive to light and accommodation.??EARS:??normal.??ORAL CAVITY:??mucosa moist.??THROAT:??clear.??NECK/THYROID:??neck supple, full range of motion, no cervical lymphadenopathy.??SKIN:??no suspicious lesions, warm and dry.??HEART:??no murmurs, regular rate and rhythm, S1, S2 normal.??LUNGS:??clear to auscultation bilaterally.??ABDOMEN:??normal, bowel sounds present, soft, nontender, nondistended.??EXTREMITIES:??no clubbing, cyanosis, or edema.??NEUROLOGIC:??nonfocal, motor strength normal upper and lower extremities, sensory exam intact.? Assessment: * Assessment: Total time spent today [...] minimum of 6 months The most recent [place] Association of clinical endocrinologists and [place] [employer] of endocrinology guidelines recommend patients who [...] track activity level. Consider using apps like [employer], [employer], lose it, stick as needed for self-monitoring and weight management. Consider group exercises. Consider hiring a personal lines sales rep. Regular exercise is keene to sustainable health [...] counseling and psychiatry and Dr Oliveira at [employer]. We would like to cover regular topics [...] software and direct typing Please excuse inadvertent sr. social media & mobile manager or typing errors, or uncorrected word substitutions Although every attempt has been made by the provider to proofread this document, occasional misspellings and typographical errors may still be present Due to the previous pandemic, and the use of personal protective equipment (PPE) This may decrease voice recognition accuracy Inadvertent sr. social media & mobile manager errors may occur. Plan: * Treatment: * Images: Billing Information: * Visit Code:?? * Procedure Codes:?? * Sign off status: Pending * Provider:??JAXON AGUERO NP Date:??11/2023 History and Physical Notes * HPI (History [...] Lowest weight: lbs Goal weight: lbs TONY screening/[facility]/[place], * Metabolic workup:* Thyroid? No recent screening Diabetes? No recent screening Has not had an echocardiogram recently. Diet: Exercise: Currently steps daily. Non-smoker. ETOH use: Examination Category Sub-Category Detail Notes Category Not es General Examination GENERAL APPEARANCE: in no ac bernadine distress, well developed, well nourished HEAD: normocephalic, [...]
--- OUTSIDE RECORDS SUMMARY | 2024-11-30 13:20 | XMS_ITS | Encounter Summary ---
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); Bronchitis; Itch Social History Tobacco Use Types Packs/Day Years Used Date Smoking Tobacco: Never Smokeless Tobacco: Never Alcohol Use Standard Drinks/Week Comments No 0 (1 standard drink = 0.6 oz pur e alcohol) Comments No Sex and Gender Information Value Date Recorded Sex Assigned at Not on file Legal Sex Female 3:57 AM EST Gender Identity Not on file Sexual Orientation Not on file documented as of this encounter Last Filed Vital Signs Vital Sign Reading Time Taken Comments Blood Pressure 120/70 11/17/2024 10:24 AM EST Pulse 131 11/17/2024 10:24 AM EST Temperature 37 ??C (98.6 ??F) 11/17/2024 10:24 AM EST Respiratory Rate - - Oxygen Saturation 98% 11/17/2024 10:24 AM EST Inhaled Oxygen Concentration - - Weight 89.9 kg (198 lb 3.2 oz) 11/17/2024 10:24 AM EST Height 162.6 cm (5' 4 ) 11/17/2024 10:24 AM EST Body Mass Index 34.02 11/17/2024 10:24 AM EST documented in this encounter Functional Status * Are you deaf or do you have serious difficulty hearing? Answer Date of Assessment Author No 08/28/2024 1:36 PM Pitts RN * Are you blind or do you have serious difficulty seeing, even when wearing glasses? Answer Date of Assessment Author No 08/28/2024 1:36 PM Pitts RN * Do you have serious difficulty walking or climbing stairs? Answer Date of Assessment Author Yes 08/28/2024 1:36 PM Pitts RN * Do you have serious difficulty dressing or bathing? Answer Date of Assessment Author No 08/28/2024 1:36 PM Pitts RN * Because of a physical, mental, or emotional condition, do you have serious difficulty doing errandsalone such as visiting the doctor? Answer Date of Assessment Author No 08/28/2024 1:36 PM Pitts RN documented as of this encounter Mental Status * Because of a physical, mental, or emotional condition, do you have serious difficulty concentrating, remembering, or making decisions? (5 years old or older) Answer Entry Date Author No 08/28/2024 1:36 PM Pitts RN documented in this encounter Ordered Prescriptions Prescription Sig Dispense Quantity Refills Last Filled Start Date End Date diphenhydrAMINE (BenadryL) 25 mg capsuleIndications:I h Take 1 capsule (25 mg total) by mouth every 6 (six) hours if needed for itching. 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 2 mL 2 11/17/2024 gabapentin (NEURONTIN) 800 mg tabletIndications:Po lyneuropathy Take 1 tablet (800 mg total) by mouth 2 (two) times a day. 60 each 11 11/17/2024 6 pilocarpine (Salagen, pilocarpine,) 5 mg tabletIndications:Dr carcamo mouth Take 1 tablet (5 mg total) by mouth 2 (two) times a day. 60 each 11 11/17/2024 6 methylPREDNISolone (MEDROL DOSPAK) 4 mg tabletIndications:Br onchitis Take as directed on package. 21 tablet 11/17/2024 5 documented in this encounter Progress Notes * Lucía España, GROUNDS AND NURSERY SPECIALIST - 11/17/2024 10:45 AM EST CHIEF COMPLAINT: Follow-up IDENTIFIER: Jazlyn Vargas is a 69 y.o. old female. HPI: - Jazlyn is a 69-year-old female who presents today for an ER follow-up. Accompanied by her son to help interpret Zambian. - Was at the ER for chest pain. EKG unremarkable. D-dimer negative. No evidence of ACS, pericarditis, myocarditis, pulmonary embolism, pneumothorax, pneumonia, Zoster, or esophageal perforation. Historically not abrupt in onset, tearing or ripping, pulses symmetric, no evidence of aortic dissection. Furthermore, her chest pain is very reproducible on exam. It is likely musculoskeletal. Was given Robaxin 750 mg at discharge. - Since discharge, Endorses a constant burning sensation all over her body. Worse when she is laying in bed. Also endorses dry mouth. - Looking to increase her dose of Mounjaro, completed 4 injections of Mounjaro 10 mg. ROS: See HPI. PAST MEDICAL HISTORY: Patient Active Problem List Diagnosis Date Noted Abdominal pain 07/29/2024 Vertigo 01/31/2021 Hot flashes 11/17/2020 Pain of upper abdomen 11/17/2020 Palpitations 11/17/2020 Tubular adenoma 11/17/2020 Allergic conjunctivitis, bilateral 10/03/2020 Epistaxis 10/03/2020 Acute midline low back pain without sciatica 06/15/2020 Spondylosis of lumbar region without myelopathy or radiculopathy 06/15/2020 Severe obesity (BMI 35.0-39.9) with comorbidity (CMS/HCC) 02/02/2019 Constipation 04/23/2018 TONY (obstructive sleep apnea) 03/25/2018 Anxiety 03/10/2018 Depression 03/10/2018 Hypertension 03/10/2018 Hypertriglyceridemia 03/10/2018 Insomnia 03/10/2018 Perennial allergic rhinitis 03/10/2018 Urinary incontinence 03/10/2018 Venous insufficiency 03/10/2018 Vitamin D deficiency 03/10/2018 GERD (gastroesophageal reflux disease) 02/19/2018 Asthma 02/18/2018 Chronic obstructive pulmonary disease (COPD) ([facility]) 02/18/2018 Diabetes mellitus type 2 with neurological manifestations ([facility]) 02/18/2018 Panic attack 04/08/2017 Osteoarthrosis 05/17/2015 Past Surgical History: Procedure Laterality Date ANKLE SURGERY Right 2017 PROCEDURE: HISTORICAL ANKLE SURGERY; COMMENT: medial malleolar fracture SECTION PROCEDURE: HISTORICAL DELIVERY; COMMENT: x3 COLONOSCOPY 05/24/2020 PROCEDURE: HISTORICAL COLONOSCOPY; COMMENT: tubular adenoma ESOPHAGOGASTRODUODENOSCOPY PROCEDURE: OH EGD TRANSORAL BIOPSY SINGLE/MULTIPLE; COMMENT: Performed in [...] Medications Discontinued During This Encounter Medication Reason tirzepatide (Mounjaro) 10 mg/0.5 mL injection Dose adjustment ACTIVE MEDICATIONS: Outpatient Medications Marked as Taking for the 11/17/24 encounter (Office Visit) with Lucía España NP Medication Sig Dispense Refill albuterol 2.5 mg /3 mL (0.083 %) nebulizer solution INHALE THE CONTENTS OF 1 VIAL VIA NEBULIZER EVERY 6 HOURS NEEDED FOR WHEEZING (BULK) 360 mL 10 albuterol HFA (PROAIR HFA ; PROVENTIL HFA ; VENTOLIN HFA) 90 mcg/actuation inhaler Inhale 2 puffs by mouth every 6 (six) hours if needed for wheezing. 8.5 g 5 aluminum-magnesium hydroxide-simethicone (Mintox Maximum Strength) 400-400-40 mg/5 mL suspension Take 5 mL by mouth. ascorbic acid (VITAMIN C) 1,000 mg tablet Take 1 tablet (1,000 mg total) by mouth 1 (one) time eachday. 30 tablet 5 atorvastatin (LIPITOR) 10 mg tablet Take 1 tablet (10 mg total) by mouth 1 (one) time each day. BD Ultra-Fine Short Pen Needle 31 gauge x 5/16 needle USE TO INJECT INSULIN FOUR TIMES A DAY (BULK) 100 each 11 blood sugar diagnostic (Kaymbuuch Verio test strips) test strip USE DAILY DIRECTED (BULK) 100 strip 1 cetirizine (ZyrTEC) 10 mg tablet TAKE ONE TABLET BY MOUTH EVERY DAY ^1R1 30 tablet 5 cholecalciferol (VITAMIN D-3) 50 mcg (2,000 unit) capsule Take 1 capsule (2,000 Units total) by mouth 1 (one) time each day. cyclobenzaprine (FLEXERIL) 5 mg tablet Take 1 tablet (5 mg total) by mouth at bedtime as needed. diphenhydrAMINE (Banophen) 25 mg capsule TAKE ONE CAPSULE BY MOUTH EVERY DAY NEEDED FOR ITCHING OR ALLERGIES (VIAL) docusate sodium (COLACE) 100 mg capsule Take 1 capsule (100 mg total) by mouth 1 (one) time each day. 30 capsule 5 Easy Touch Alcohol Prep Pads pads, medicated USE FOUR TIMES A DAY BEFORE INSULIN INJECTION AND TESTING BLOOD SUGAR (BULK) 100 each 5 EPINEPHrine (EPIPEN) 0.3 mg/0.3 mL injection [...] spray Administer 2 sprays into affected nostril(s). vhcwjukccwu-taeqezdoxtmq-kivipxtcxy (Trelegy Ellipta) 100-62.5-25 mcg inhaler Inhale 1 [...] MOUTH ONCE DAILY (BULK) 30 packet 11 HumaLOG KwikPen Insulin 100 unit/mL injection pen Inject 10 Units under the skin 3 (three) times a day before meals. 9 mL 5 hydrocortisone valerate (WEST-JAYLENE) 0.2 % ointment Apply to affected areas on body 2 times a day for 7 days. Avoid face and groin hydrOXYzine HCL (ATARAX) 25 mg tablet Take 1 tablet (25 mg total) by mouth 4 (four) times a day. 60tablet 5 ketotifen (ZADITOR) 0.025 % ophthalmic solution Administer 1 drop into affected eye(s). lidocaine (LIDODERM) 5 % patch Apply topically 1 (one) time each day. Remove & discard patch within 12 hours or as directed by MD. 30 patch 1 loperamide (IMODIUM) 2 mg [...] by mouth 1 (one) time each day. pantoprazole (PROTONIX) 40 mg EC tablet Take 1 tablet (40 mg total) by mouth 1 (one) time each day.Do not crush, chew, or split. 30 each 5 roflumilast 250 mcg tablet TAKE ONE TABLET BY MOUTH EVERY DAY ^1R4 simethicone (MYLICON,GAS-X) 180 mg capsule TAKE ONE CAPSULE BY MOUTH THREE TIMES A DAY WITH MEALS (VIAL) sucralfate (CARAFATE) 100 mg/mL suspension Take 10 mL (1 g total) by mouth every 6 (six) hours. Before meals and at bedtime 1242 mL 7 triamcinolone (KENALOG) 0.1 % cream APPLY TO AFFECTED AREA(S) TWO TIMES A DAY (BULK) 60 g 3 [DISCONTINUED] tirzepatide (Mounjaro) 10 mg/0.5 mL injection Inject 0.5 mL (10 mg total) under the skin every 7 (seven) days. 2 mL 1 ALLERGIES: Allergies Allergen Reactions Montelukast Other Anixety [...] this Tramadol PHYSICAL EXAM: Visit Vitals BP 120/70 (BP Location: Right arm, Patient Position: Sitting, BP Cuff Size: Adult) Pulse (!) 131 Temp 37 ??C (98.6 ??F) (Temporal) Ht 1.626 m (64 ) Wt 89.9 kg (198 lb 3.2 oz) SpO2 98% BMI 34.02 kg/m?? OB Status Hysterectomy Smoking Status Never BSA 1.95 m?? Physical Exam Constitutional: Appearance: Normal appearance. Cardiovascular: Rate and Rhythm: Normal rate and regular rhythm. Pulses: Normal pulses. Heart sounds: Normal heart sounds. Pulmonary: Breath sounds: Wheezing present. Neurological: General: No focal deficit present. Mental Status: She is alert and oriented to person, place, and time. Psychiatric: Mood and Affect: Mood normal. Behavior: Behavior normal. LABS/IMAGING: Admission on 11/04/2024, Discharged on 11/05/2024 Component Date Value Ref Range Status Ventricular Rate ECG 11/04/2024 96 BPM Final Atrial Rate 11/04/2024 96 BPM Final P-R Interval 11/04/2024 168 ms Final QRS Duration 11/04/2024 86 ms Final Q-T Interval 11/04/2024 366 ms Final QTc 11/04/2024 462 ms Final P Wave [place] 11/04/2024 45 degrees Final R [place] 11/04/2024 -26 degrees Final T [place] 11/04/2024 26 degrees Final ECG Interpretation 11/04/2024 Final Value:Normal sinus rhythm Minimal voltage criteria for LVH, may be normal variant Borderline ECG When compared with ECG of 04-NOV-2024 17:13, (unconfirmed) No significant change was found Confirmed by Swetha HIGGINS YUFENG ([id number]) on 11/05/2024 12:38:57 PM Ventricular Rate ECG 11/04/2024 111 BPM Final Atrial Rate 11/04/2024 111 BPM Final P-R Interval 11/04/2024 158 ms Final QRS Duration 11/04/2024 80 ms Final Q-T Interval 11/04/2024 342 ms Final QTc 11/04/2024 465 ms Final P Wave [place] 11/04/2024 45 degrees Final R [place] 11/04/2024 -30 degrees Final T [place] 11/04/2024 23 degrees Final ECG Interpretation 11/04/2024 Final Value:Sinus tachycardia Left axis deviation Minimal voltage criteria for LVH, may be normal variant Poor R wave progression Abnormal ECG When compared with ECG of 09-JAN-2024 21:14, No significant change was found Confirmed by Swetha HIGGINS YUFENG ([id number]) on 11/05/2024 12:28:14 PM High Sensitivity Troponin I 11/04/2024 4 <=54 ng/L Final High Sensitivity Troponin I 11/04/2024 4 <=54 ng/L Final Sodium 11/04/2024 138 133 - 145 mmol/L Final Potassium 11/04/2024 3.6 3.5 - 5.5 mmol/L Final Chloride 11/04/2024 105 96 - 110 mmol/L Final CO2 11/04/2024 27 21 - 32 mmol/L Final Anion Gap 11/04/2024 6 3 - 11 Final Glucose 11/04/2024 234 (H) 70 - 100 mg/dL Final BUN 11/04/2024 20 5 - 25 mg/dL Final Creatinine 11/04/2024 0.68 0.50 - 1.10 mg/dL Final eGFR 11/04/2024 94 >=60 mL/min/1.73m2 Final BUN/Creatinine Ratio 11/04/2024 29.4 Final Calcium 11/04/2024 9.1 8.5 - 10.5 mg/dL Final AST (SGOT) 11/04/2024 12 10 - 42 unit/L Final ALT (SGPT) 11/04/2024 27 10 - 60 unit/L Final Alkaline Phosphatase 11/04/2024 102 42 - 121 unit/L Final Total Protein 11/04/2024 6.6 6.0 - 8.0 g/dL Final Albumin 11/04/2024 3.4 3.2 - 5.0 g/dL Final Total Bilirubin 11/04/2024 0.2 0.0 - 1.4 mg/dL Final Lipase 11/04/2024 63 13 - 75 unit/L Final Magnesium 11/04/2024 2.2 1.9 - 2.6 mg/dL Final BNP 11/04/2024 15 <=100 pcg/mL Final WBC 11/04/2024 10.2 4.8 - 10.8 K/mcL Final RBC 11/04/2024 4.30 3.80 - 4.80 M/mcL Final Hemoglobin 11/04/2024 12.6 11.5 - 16.0 g/dL Final Hematocrit 11/04/2024 38.3 35.0 - 47.0 % Final MCV 11/04/2024 90.1 79.0 - 98.0 FL Final MCH 11/04/2024 29.6 27.0 - 32.0 pcg Final MCHC 11/04/2024 32.9 32.0 - 37.0 g/dL Final RDW 11/04/2024 12.9 11.0 - 15.0 % Final Platelets 11/04/2024 207 130 - 400 K/mcL Final MPV 11/04/2024 10.6 7.0 - 11.0 FL Final NRBC 11/04/2024 0.0 <1.0 % Final NRBC Absolute 11/04/2024 0.00 <0.10 K/mcL Final Neutrophils Relative 11/04/2024 67.9 % Final Lymphocytes Relative 11/04/2024 24.2 % Final Monocytes Relative 11/04/2024 7.1 % Final Eosinophils Relative 11/04/2024 0.2 % Final Basophils Relative 11/04/2024 0.3 % Final Immature Granulocytes Relative 11/04/2024 0.3 % Final Neutrophils Absolute 11/04/2024 6.90 1.50 - 7.00 K/mcL Final Lymphocytes Absolute 11/04/2024 2.46 1.00 - 5.00 K/mcL Final Monocytes Absolute 11/04/2024 0.72 0.20 - 1.00 K/mcL Final Eosinophils Absolute 11/04/2024 0.02 0.00 - 0.50 K/mcL Final Basophils Absolute 11/04/2024 0.03 0.00 - 0.20 K/mcL Final Immature Granulocytes Absolute 11/04/2024 0.03 0.00 - 0.03 K/mcL Final Adenovirus Detection by PCR 11/04/2024 Not Detected Not Detected Final Influenza A PCR 11/04/2024 Not Detected Not Detected Final Influenza B PCR 11/04/2024 Not Detected Not Detected Final Coronavirus 229E 11/04/2024 Not Detected Not Detected Final Coronavirus HKU1 11/04/2024 Not Detected Not Detected Final Coronavirus OC43 11/04/2024 Not Detected Not Detected Final Coronavirus NL63 11/04/2024 Not Detected Not Detected Final Parainfluenza Virus 1 11/04/2024 Not Detected Not Detected Final Parainfluenza Virus 2 11/04/2024 Not Detected Not Detected Final Parainfluenza Virus 3 11/04/2024 Not Detected Not Detected Final Parainfluenza Virus 4 11/04/2024 Not Detected Not Detected Final RSV PCR 11/04/2024 Not Detected Not Detected Final Human Metapneumovirus A and B 11/04/2024 Not Detected Not Detected Final Rhinovirus/Enterovirus 11/04/2024 Not Detected Not Detected Final Bordetella pertussis 11/04/2024 Not Detected Not Detected Final Bordetella parapertussis 11/04/2024 Not Detected Not Detected Final Mycoplasma pneumo by PCR 11/04/2024 Not Detected Not Detected Final Chlamydia pneumoniae 11/04/2024 Not Detected Not Detected Final SARS COV-2 11/04/2024 Not Detected Not Detected Final D-Dimer, Quant (D-DU) 11/05/2024 <150 <=230 ng/mL DDU Final Ventricular Rate ECG 11/05/2024 108 BPM Final Atrial Rate 11/05/2024 108 BPM Final P-R Interval 11/05/2024 150 ms Final QRS Duration 11/05/2024 80 ms Final Q-T Interval 11/05/2024 346 ms Final QTc 11/05/2024 463 ms Final P Wave [place] 11/05/2024 40 degrees Final R [place] 11/05/2024 -29 degrees Final T [place] 11/05/2024 15 degrees Final ECG Interpretation 11/05/2024 Final Value:Sinus tachycardia Minimal voltage criteria for LVH, may be normal variant Anterolateral infarct , age undetermined Abnormal ECG When compared with ECG of 04-NOV-2024 20:01, (unconfirmed) Anterolateral infarct is now Present Confirmed by Swetha HIGGINS, LEIF ([id number]) on 11/05/2024 3:16:36 PM Appointment on 08/03/2024 Component Date Value Ref Range Status Folate 08/03/2024 16.3 2.8 - 17.0 ng/ml Final TSH 08/03/2024 0.35 (L) 0.40 - 4.00 mcIU/mL Final Vitamin B-12 08/03/2024 968 (H) 250 - 900 pcg/mL Final Free T4 08/03/2024 1.14 0.70 - 1.80 ng/dL Final T3, Free 08/03/2024 311 230 - 420 pcg/dL Final IMPRESSION: 1. Polyneuropathy 2. Dry mouth 3. 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 Bronchitis 5. Itch PLAN: 1. Polyneuropathy gabapentin (NEURONTIN) 800 mg tablet 2. Dry mouth pilocarpine (Salagen, pilocarpine,) 5 mg tablet 3. 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 Bronchitis methylPREDNISolone (MEDROL DOSPAK) 4 mg tablet 5. Itch diphenhydrAMINE (BenadryL) 25 mg capsule 1. Polyneuropathy: Per patient request, gabapentin 800 mg twice daily sent to pharmacy. 2. Dry mouth: Take pilocarpine 5 mg twice daily. 3. Diabetes: Increase Mounjaro to 12.5 mg weekly injection. 4. Bronchitis: Medrol Dosepak sent to pharmacy. 5. Itch: Take Benadryl with Medrol Dosepak to prevent allergic irritation. Recommend follow-up in 1 month for routine annual physical exam. Advised the patient to call me if any problems. Patient understands the plan. Patient is in agreement with the plan. Lucía España NP on 11/17/2024 at 12:24 PM EST documented in this encounter Plan of Treatment Upcoming Encounters Date Type Department Care Team (Late st Contact Info) Description 01/21/2025 1:00 PM EDT Office Visit Bariatric Surgery [address] [phone] Maira Zurita MD [address] [address] 04/07/2025 9:00 AM EDT Office Visit Bariatric Surgery [address] [phone] Ashlyn Marcus MD [address] [phone] documented as of this encounter Visit Diagnoses Diagnosis Polyneuropathy- Primary Unspecified hereditary and idiopathic peripheral neuropathy Dry mouth Disturbance of salivary secretion Diabetes mellitus type 2 with neurological manifestations ([facility]) Bronchitis Bronchitis, not specified as acute or chronic Itch Unspecified pruritic disorder documented in this encounter Discontinued Medications Medication Sig Discontinue Reason Start Date End Da te tirzepatide (Mounjaro) 10 mg/0.5 mL injectionIndications:Clas s 1 obesity due to excess calories with serious comorbidity and body mass index (BMI) of 34.0 to 34.9 in adult Inject 0.5 mL (10 mg total) under the skin every 7 (seven) days. Dose adjustment 10/22/2024 11/17/2024 documented as of this encounter Care Teams Credit Card Associate Relationship Specialty Start Date End Date Charo Chakraborty MD [address] [phone] PCP - General Internal Medicine 09/25/24 documented as of this encounter
--- OUTSIDE RECORDS SUMMARY | 2024-11-30 13:20 | XMS_ITS | Encounter Summary ---
Author Organization [employer] Address [address] [place] [address] Care Team Providers Care Director Toxicology Name Role Phone Charo Chakraborty MD Primary Care Provider [phone] Reason for Visit * Reason Onset Date Comments Medication Reaction 11/20/2024 Itching - dr y skin Encounter Details Date Type Department Care Team ([facility] st Contact Info) Description 11/20/2024 Telephone Internal Medicine - [place] 175 [facility] [address] [place] [phone] Charo Chakraborty MD 175 [facility] [address] [place] [phone] Medication Reaction (Itching - dry skin) Social History Tobacco Use Types Packs/Day Years [...] documented as of this encounter Functional Status * Are you deaf or do you have serious difficulty hearing? Answer Date of Assessment Author No 08/28/2024 1:36 PM EST Blevins RN * Are you blind or do [...] PM Pitts RN documented in this encounter Progress Notes * Kurt Smith MA - 11/24/2024 2:27 PM EST Called pt to inform of message below number is not in service. * Charo Chakraborty MD - 11/23/2024 9:53 PM EST Ask her to stop taking the cholesterol medicine and see if it improves * Kurt Smith MA - 11/23/2024 9:33 AM EST Abe Castrejon, please advise message below. * Jennyfer Tran - 11/20/2024 9:38 AM EST called on behalf of patient who was just in the office on 11-17-2024 and complained of dry mouth- appt was with Patria Castrejon NP and noted. Now called today complains of dry skin and itching Attributes this to her cholesterol medication However unable to provide the name of medication. Called to see if their is a correlation between The medication and dry itching skin Contact patient - [place] Speaking - with response documented in this encounter Plan of Treatment Upcoming Encounters Date Type Department Care Team (Late st Contact Info) Description 01/21/2025 1:00 PM EDT Office Visit Bariatric Surgery [facility] [address] [phone] Maira Zurita MD [address] [address] 04/07/2025 9:00 AM EDT Office Visit Bariatric Surgery [facility] [address] [phone] Ashlyn Marcus MD [address] [phone] documented as of this encounter Visit Diagnoses Not on filedocumented in this encounter Care Teams Director Toxicology Relationship Specialty Start Date End Date Charo Chakraborty MD [address] [phone] PCP - General Internal Medicine 09/25/24 documented as of this encounter
--- OUTSIDE RECORDS SUMMARY | 2024-11-30 13:20 | XMS_ITS | Encounter Summary ---
Author Organization [facility] Address [address] [place] [address] Care Team Providers Care Human Resources Training Manager Name Role Phone Charo Chakraborty MD Primary Care Provider [phone] Reason for Visit * Reason Comments Chest Pain Cp rad to l x 3 days Encounter Details Date Type Department Care Team (Late st Contact Info) Description 11/04/2024 7:12 PM EST - 11/05/2024 1:[address] [facility] [address] [place] [id number] Fortunato Fofana, DO [address] [place] [address] Tamera Ivey MD [address] [place] [address] Bennie Valdez MD [address] [place] [address] Chest pain, unspecified type (Primary Dx) Discharge Disposition: Home or Self Care Social [...] Sign Reading Time Taken Comments Blood Pressure 127/71 11/05/2024 9:28 AM EST Pulse 110 11/05/2024 9:28 AM EST Temperature 36.7 ??C (98.1 ??F) 11/05/2024 9:28 AM ES T Respiratory Rate 20 11/05/2024 9:28 AM EST Oxygen Saturation 94% 11/05/2024 9:28 AM EST Inhaled Oxygen Concentration - - Weight 88.9 kg (196 lb) 11/04/2024 5:17 PM EST Height 162.6 cm (5' 4 ) 11/04/2024 5:17 PM EST Body Mass Index 33.64 11/04/2024 5:17 PM EST documented in this encounter Functional Status * Are you deaf or do you have serious difficulty hearing? Answer Date of Assessment Author No 08/28/2024 1:36 PM EST Blevins RN * Are you blind or do you have serious difficulty seeing, even when wearing glasses? Answer Date of Assessment Author No 08/28/2024 1:36 PM EST Blevins RN * Do you have serious difficulty [...] PM Pitts RN documented in this encounter Discharge Instructions * Discharge Instructions* Bennie Valdez MD - 11/05/2024 11:39 AM EST You were seen in the hospital for your chest pain. The chest pain was very reproducible on exam, and it is likely musculoskeletal. We did do EKG, chest x- ray, as well as a D-dimer and troponins. Thiswas all unremarkable. Please follow-up with your primary care doctor. Please return if your symptoms worsen. Please do not operate any machinery or drive while you are taking the muscle relaxants. * Attachments The following attachments cannot be sent through Care Everywhere. * Chest Pain (Guamanian) documented in this encounter Medications at Time of Discharge albuterol 2.5 mg /3 mL (0.083 %) nebulizer solution INHALE THE CONTENTS OF 1 VIAL VIA NEBULIZER EVERY 6 HOURS NEEDED FOR WHEEZING (BULK) 360 mL 10 4 aluminum-magnesiu m hydroxide-simethi cone (Mintox Maximum Strength) 400-400-40 mg/5 mL suspension Take 5 mL by mouth. 02 4 atorvastatin (LIPITOR) 10 mg tablet Take 1 tablet (10 mg total) by mouth 1 (one) time each day. 4 BD Ultra-Fine Short Pen Needle 31 gauge x 5/16 needle USE TO INJECT INSULIN FOUR TIMES A DAY (BULK) 100 each 11 5 blood sugar diagnostic (OneTouch Verio test strips) test strip USE DAILY DIRECTED (BULK) 100 strip 1 4 cetirizine (ZyrTEC) 10 mg tablet TAKE ONE TABLET BY MOUTH EVERY DAY ^1R1 30 tablet 5 5 cholecalciferol (VITAMIN D-3) 50 mcg (2,000 unit) capsule Take 1 capsule (2,000 Units total) by mouth 1 (one) time each day. 3 cyclobenzaprine (FLEXERIL) 5 mg tablet Take 1 tablet (5 mg total) by mouth at bedtime as needed. 4 diphenhydrAMINE (Banophen) 25 mg capsule TAKE ONE CAPSULE BY MOUTH EVERY DAY NEEDED FOR ITCHING OR ALLERGIES (VIAL) 4 EPINEPHrine (EPIPEN) 0.3 mg/0.3 mL injectionIndicati ons:Mild intermittent asthma without complication INJECT 1 SYRINGE INTRAMUSCULARLY NEEDED FOR ANAPHYLAXIS (BULK) 2 each 1 5 estradioL (ESTRACE) 0.01 % (0.1 mg/gram) vaginal cream APPLY A THIN LAYER TO VAGINA / VULVA TWO TIMES WEEKLY AT BEDTIME (BULK) 42.5 g 3 4 FLUoxetine (PROzac) 20 mg capsule TAKE ONE CAPSULE BY MOUTH EVERY DAY ^1R1 30 capsule 5 5 fluticasone (Flonase Sensimist) 27.5 mcg/actuation nasal spray Administer 2 sprays into affected nostril(s). 4 fluticasone-umecl idinium-vilantero l (Trelegy Ellipta) 100-62.5-25 mcg inhaler Inhale 1 puff (100 mcg total) by mouth. 2 furosemide (LASIX) 20 mg tablet TAKE ONE TABLET BY MOUTH EVERY DAY ^1R1 4 gabapentin (NEURONTIN) 300 mg capsule 1 cap po in am, 1 cap at noon, 2 cap at night 4 gabapentin (Neurontin) 400 mg capsule Take 1 capsule (400 mg total) by mouth 3 (three) times a day. 90 each 3 4 glipiZIDE (GLUCOTROL) 10 mg tablet TAKE ONE TABLET BY MOUTH TWICE A DAY BEFORE MEALS ^1R1,1R4 60 tablet 5 5 HealthyLax 17 gram packet TAKE THE CONTENTS OF ONE PACKET BY MOUTH ONCE DAILY (BULK) 30 packet 11 5 hydrocortisone valerate (WEST-JAYLENE) 0.2 % ointment Apply to affected areas on body 2 times a day for 7 days. Avoid face and groin 4 ketotifen (ZADITOR) 0.025 % ophthalmic solution Administer 1 drop into affected eye(s). 1 lidocaine (LIDODERM) 5 % patchIndications: Other diabetic neurological complication associated with type 2 diabetes mellitus (CMS/HCC) Apply topically 1 (one) time each day. Remove & discard patch within 12 hours or as directed by MD. 30 patch 1 5 loperamide (IMODIUM) 2 mg capsule Take 1 capsule (2 mg total) by mouth. 4 losartan (COZAAR) 50 mg tablet TAKE ONE TABLET BY MOUTH EVERY DAY ^1R1 30 tablet 5 5 magnesium oxide (MAG-OX) 400 mg (241.3 elemental magnesium) tablet TAKE ONE TABLET BY MOUTH EVERY DAY ^1R4 30 tablet 5 5 meclizine (ANTIVERT) 25 mg tablet Take 1 tablet (25 mg total) by mouth. 4 meloxicam (MOBIC) 7.5 mg tablet TAKE ONE TABLET BY MOUTH EVERY DAY ^1R1 30 tablet 3 5 methocarbamoL (ROBAXIN) 750 mg tablet Take 1 tablet (750 mg total) by mouth 4 (four) times a day for 5 days. 20 each 5 omega-3 acid ethyl esters (LOVAZA) 1 gram capsule TAKE ONE CAPSULE BY MOUTH TWICE A DAY ^1R1,1R4 4 omeprazole (PriLOSEC) [address] capsule Take 1 capsule (20 mg total) by mouth 1 (one) time each day. 90 capsule 3 5 10/31/19 26 pantoprazole (PROTONIX) 20 mg EC tablet Take 1 tablet (20 mg total) by mouth 1 (one) time each day. 4 pantoprazole (PROTONIX) 40 mg EC tablet Take 1 tablet (40 mg total) by mouth 1 (one) time each day. Do not crush, chew, or split. 30 each 5 5 05/03/20 25 roflumilast 250 mcg tablet TAKE ONE TABLET BY MOUTH EVERY DAY ^1R4 4 simethicone (MYLICON,GAS-X) 180 mg capsule TAKE ONE CAPSULE BY MOUTH THREE TIMES A DAY WITH MEALS (VIAL) 4 triamcinolone (KENALOG) 0.1 % cream APPLY TO AFFECTED AREA(S) TWO TIMES A DAY (BULK) 60 g 3 5 albuterol HFA (PROAIR HFA ; PROVENTIL HFA ; VENTOLIN HFA) 90 mcg/actuation inhaler INHALE TWO PUFFS BY MOUTH EVERY 6 HOURS NEEDED FOR WHEEZING OR FOR SHORTNESS OF BREATH - THIS IS A RESCUE MEDICATION; NOT TO EXCEED 12 INHALATIONS PER 24 HOURS (BULK) 4 11/13/19 25 alcohol swabs (Alcohol Prep Pads) pads, medicated USE FOUR TIMES A DAY BEFORE INSULIN INJECTION AND TESTING BLOOD SUGAR (BULK) 4 11/13/19 25 ascorbic acid (VITAMIN C) 1,000 mg tablet TAKE ONE TABLET BY MOUTH EVERY DAY ^1R2 4 11/13/19 25 docusate sodium (COLACE) 100 mg capsule TAKE ONE CAPSULE BY MOUTH TWICE A DAY (VIAL) 30 capsule 5 4 11/13/19 25 hydrOXYzine HCL (ATARAX) 25 mg tablet TAKE ONE TABLET BY MOUTH EVERY 4 HOURS NEEDED FOR ITCHING (#32 IN VIAL) ^1R4 4 11/13/19 25 insulin lispro (HumaLOG KwikPen Insulin) 100 unit/mL injection pen INJECT 5 TO 10 UNITS UNDER THE SKIN THREE TIMES A DAY PER SLIDING SCALE (BULK) 4 11/13/19 25 tirzepatide (Mounjaro) 10 mg/0.5 mL injectionIndicati ons:Class 1 obesity due to excess calories with serious comorbidity and body mass index (BMI) of 34.0 to 34.9 in adult Inject 0.5 mL (10 mg total) under the skin every 7 (seven) days. 2 mL 1 5 11/17/19 25 documented as of this encounter Ordered Prescriptions Prescription Sig Dispense Quantity Refills Last Filled Start Date End Date methocarbamoL (ROBAXIN) 750 mg tablet Take 1 tablet (750 mg total) by mouth 4 (four) times a day for 5 days. 20 each 11/05/2024 documented in this encounter Discharge Disposition Disposition Code Departure Means Destination Comment s Home or Self Care documented in this encounter Progress Notes * Omaira Sanders RN - 11/05/2024 6:24 AM EST Pt ambulated to bathroom with continuous spo2 monitoring, spo2 remained 92-94% upon ambulation, pt radha well only reports fatigue * JOANNA Finch - 11/05/2024 1:07 AM EST ED Course as of 11/05/24 025SatNov 04, 2024 2240 Chest x-ray: No acute disease [KN] April Nov 05, 2024 0106 I received transfer of care and sinus patient approximately 2300 hrs. pending reevaluation after nebulizer treatment. Patient is a 69-year-old female with history of asthma complaining of chest discomfort for the last 3 days. Workup today is reassuring. X-ray is negative. She does report some minimal improvement of her symptoms following initial albuterol treatment although she is still quite wheezy on auscultation. She given an additional nebulizer treatment and will reassess. Viral panelis still pending at this time. [EN] 0252 Patient still having significant wheezing although it appears that patient was never given anysteroids to assist with her symptomology. She does have a significant amount of allergies, however it appears that she can tolerate Solu- Medrol. Will additionally give magnesium. Patient will be signed out to oncoming provider pending reevaluation of respiratory status as well as ambulatory trial. [EN] ED Course User Index [EN] JOANNA Finch [KN] Fortunato Fofana DO Data Unavailable No diagnosis found. Procedures Cosigned by Tamera Ivey MD at 11/05/2024 8:26 AM EST * Ming Zavala RN - 11/04/2024 5:18 PM EST Pt arrives steady even gait c/o chest pain x 3 days. States today pain is stronger. States pain started while she was at rest and describes pain as hot and stabbing. Pt also states she feels SOB attimes due to chronic asthma that pt has had for over 25 years. Hx HTN. * Fortunato Fofana DO - 11/04/2024 4:46 PM EST Emergency Medicine Note Patient Name: Jazlyn Vargas Initial Evaluation: 11/04/2024 : 1955 Patient's PCP: Charo Chakraborty MD Emergency Physician: Fortunato Fofana DO History of Present Illness Chief Complaint: Chief Complaint Patient presents with Chest Pain Cp rad to l x 3 days HPI: This 69-year-old female with history of multiple medical problems, presents to the emergency department complaining of nonradiating chest pain with occasional cough for the past 3 days as well as diffuse bodyaches, generalized weakness occasional shortness of breath. She reports occasional tactile fevers. No abdominal pain or vomiting or diarrhea. No urinary or other complaints. No traumaor injury. No other acute complaints. ROS: I have performed a ROS with the pertinent positives and negatives documented in the history ofpresent illness. Previous History Past Medical History: Diagnosis Date Abdominal pain DX:Abdominal pain Allergic rhinitis 03/10/2018 DX:Allergic rhinitis Anxiety 03/10/2018 DX:Anxiety Asthma 02/18/2018 DX:Asthma Chronic obstructive pulmonary disease (COPD) ([facility]) 02/18/2018 DX:Chronic obstructive pulmonary disease (COPD) ([facility]) Depression 03/10/2018 DX:Depression Diabetes mellitus type 2 with neurological manifestations ([facility]) 02/18/2018 DX:Diabetes mellitus type 2 with neurological manifestations ([facility]) Diabetic peripheral neuropathy ([facility]) 02/01/2016 DX:Diabetic peripheral neuropathy ([facility]) Epigastric pain DX:Epigastric pain GERD (gastroesophageal reflux disease) 02/19/2018 DX:GERD (gastroesophageal reflux disease) History of colon polyps DX:History of colon polyps Hypertension 03/10/2018 DX:Hypertension Hypertriglyceridemia 03/10/2018 DX:Hypertriglyceridemia Insomnia 03/10/2018 DX:Insomnia Irritable bowel syndrome DX:Irritable bowel syndrome TONY (obstructive sleep apnea) 03/25/2018 DX:TONY (obstructive sleep apnea) Osteoarthrosis 05/17/2015 DX:Osteoarthrosis Panic attack 04/08/2017 DX:Panic attack Urinary incontinence 03/10/2018 DX:Urinary incontinence Venous insufficiency 03/10/2018 DX:Venous insufficiency Vitamin D deficiency 03/10/2018 DX:Vitamin D deficiency Past Surgical History: Procedure Laterality Date ANKLE SURGERY Right 2017 PROCEDURE: HISTORICAL ANKLE SURGERY; COMMENT: medial malleolar fracture SECTION PROCEDURE: HISTORICAL DELIVERY; COMMENT: x3 COLONOSCOPY 05/24/2020 PROCEDURE: HISTORICAL COLONOSCOPY; COMMENT: tubular adenoma ESOPHAGOGASTRODUODENOSCOPY PROCEDURE: [place] EGD TRANSORAL BIOPSY SINGLE/MULTIPLE; COMMENT: Performed in February 2021 during hospitalization HERNIA REPAIR PROCEDURE: HISTORICAL HERNIA REPAIR/ING HYSTERECTOMY PROCEDURE: HISTORICAL HYSTERECTOMY Social History Tobacco Use Smoking status: Never Smokeless tobacco: Never Substance Use Topics Alcohol use: No Drug use: No Family History Problem Relation Name Age of Onset Heart failure Mother Asthma Mother Heart failure Father Breast cancer Sister 45.00 ag 60 Asthma Brother Colon cancer Neg Hx Ovarian cancer Neg Hx Prostate cancer Neg Hx is allergic to montelukast, omalizumab, zafirlukast, aspirin, codeine, ibuprofen, insulin aspart, iodinated contrast media, mepolizumab, metformin, morphine, naproxen, oxycodone, oxycodone-acetaminophen, penicillins, pneumococcal vaccine, prednisone, and tramadol. No current facility-administered medications on file prior to encounter. Current Outpatient Medications on File Prior to Encounter Medication Sig Dispense Refill albuterol 2.5 mg [...] (BULK) 100 each 11 blood sugar diagnostic (SinequaTouch Verio test strips) test strip USE DAILY [...] spray Administer 2 sprays into affected nostril(s). qsjgkwnjmrq-cnomzyfpsziv-ujaqlkkgwu (Trelegy Ellipta) 100-62.5-25 mcg inhaler Inhale 1 [...] CAPSULE BY MOUTH TWICE A DAY ^1R1,1R4 pantoprazole (PROTONIX) 20 mg EC tablet Take 1 tablet (20 mg total) by mouth 1 (one) time each day. pantoprazole (PROTONIX) 40 mg EC tablet Take 1 tablet (40 mg total) by mouth 1 (one) time each day.Do not crush, chew, or split. 30 each 5 [] predniSONE (DELTASONE) 20 mg tablet Take 3 tabs (60mg) daily for 3 days, then take 2 tabs(40mg) daily for 3 days, then take 1 tab (20mg) daily for 3 days. 18 tablet 0 roflumilast 250 mcg tablet TAKE ONE TABLET BY MOUTH EVERY DAY ^1R4 simethicone (MYLICON,GAS-X) 180 mg capsule TAKE ONE CAPSULE BY MOUTH THREE TIMES A DAY WITH MEALS (VIAL) tirzepatide (Mounjaro) 10 mg/0.5 mL injection Inject 0.5 mL (10 mg total) under the skin every 7 (seven) days. 2 mL 1 triamcinolone (KENALOG) 0.1 % cream APPLY TO AFFECTED AREA(S) TWO TIMES A DAY (BULK) 60 g 3 [DISCONTINUED] cyclobenzaprine (FLEXERIL) 10 mg tablet TAKE ONE TABLET BY MOUTH THREE TIMES A DAY NEEDED FOR MUSCLE SPASMS (TRAYS) ^1R1,1R2,1R4 90 tablet 5 [DISCONTINUED] omeprazole (PriLOSEC) [address] capsule Take 1 capsule (20 mg total) by mouth 1 (one)time each day. 90 capsule 3 [DISCONTINUED] sucralfate (CARAFATE) 100 mg/mL suspension TAKE 10ML BY MOUTH FOUR TIMES A DAY BEFORE MEALS AND AT BEDTIME (BULK) 100 mL 2 Physical Exam ED Triage Vitals Temp Heart Rate Resp BP 11/04/24171611/04/24171611/04/24171611/04/241716 36.7 ??C (98.1 ??F) (!) 115 18 131/69 SpO2 Temp Source Heart Rate Source Patient Position 11/04/24201511/04/24171611/04/24171611/04/241716 97 % Oral Other (Comment) Sitting BP Location FiO2 (%) 11/04/241716 -- Left arm;Upper General: Alert and oriented x 3, nontoxic, in no acute distress. Conversing and following commands appropriately with clear sensorium. HEENT: Farber mucosa neck: Soft and supple Chest: Good air entry bilaterally, no evidence of respiratory distress Circulatory: RRR Abdomen: Soft, non-distended, Non-Tender Extremities: Warm and well-perfused Skin: Warm and dry Neuro: Alert and oriented x 3, no obvious acute focal deficits Results Labs Reviewed COMPREHENSIVE METABOLIC PANEL - Abnormal Result Value Sodium 138 Potassium 3.6 Chloride 105 CO2 27 Anion Gap 6 Glucose 234 (*) BUN 20 Creatinine 0.68 eGFR 94 BUN/Creatinine Ratio 29.4 Calcium 9.1 AST (SGOT) 12 ALT (SGPT) 27 Alkaline Phosphatase 102 Total Protein 6.6 Albumin 3.4 Total Bilirubin 0.2 RESPIRATORY VIRUS PANEL MOLECULAR STUDY - Normal Adenovirus Detection by PCR Not Detected Influenza A PCR Not Detected Influenza B PCR Not Detected Coronavirus 229E Not Detected Coronavirus HKU1 Not Detected Coronavirus OC43 Not Detected Coronavirus NL63 Not Detected Parainfluenza Virus 1 Not Detected Parainfluenza Virus 2 Not Detected Parainfluenza Virus 3 Not Detected Parainfluenza Virus 4 Not Detected RSV PCR Not Detected Human Metapneumovirus A and B Not Detected Rhinovirus/Enterovirus Not Detected Bordetella pertussis Not Detected Bordetella parapertussis Not Detected Mycoplasma pneumo by PCR Not Detected Chlamydia pneumoniae Not Detected SARS COV-2 Not Detected Narrative: Testing was performed using the [employer] Respiratory Pathogen PCR Assay. All results must be correlated with the clinical findings. Results should not be used as the sole basis for diagnosis. False Negative results may occur from the presence of sequence variants in the region targeted by the assay or the presence of inhibitors. Results may be affected by concurrent antiviral/antimicrobial therapy or levels of organisms that are below the limit of detection. TROPONIN I HIGH SENSITIVITY - Normal High Sensitivity Troponin I 4 Narrative: High levels of biotin in samples may falsely decrease hsTroponin values. Use caution when interpreting hsTroponin results in patients taking biotin who exhibit renal impairment (eGFR <60) or in patients taking more than 20 mg/day of biotin. TROPONIN I HIGH SENSITIVITY - Normal High Sensitivity Troponin I 4 Narrative: High levels of biotin in samples may falsely decrease hsTroponin values. Use caution when interpreting hsTroponin results in patients taking biotin who exhibit renal impairment (eGFR <60) or in patients taking more than 20 mg/day of biotin. LIPASE - Normal Lipase 63 MAGNESIUM - Normal Magnesium 2.2 B-TYPE NATRIURETIC PEPTIDE - Normal BNP 15 D-DIMER - Normal D-Dimer, Quant (D-DU) <150 Narrative: D-Dimer <230 ng/mL (D-Dimer units) is the threshold for exclusion of DVT/PE. D-Dimer may be elevated in: Critically ill, severely infected, trauma patients, DIC, acute CVA, acute SC, unstable angina, AF, old age, , and smoking. D-Dimer may be decreased with: Initiation of heparin therapy and oral anticoagulants. CBC AND DIFFERENTIAL Narrative: The following orders were created for panel order CBC and differential. Procedure Abnormality Status --------- ------ CBC auto differential[[id number]] Final result Please view results for these tests on the individual orders. CBC WITH AUTO DIFFERENTIAL WBC 10.2 RBC 4.30 Hemoglobin 12.6 Hematocrit 38.3 MCV 90.1 MCH 29.6 MCHC 32.9 RDW 12.9 Platelets 207 MPV 10.6 NRBC 0.0 NRBC Absolute 0.00 Neutrophils Relative 67.9 Lymphocytes Relative 24.2 Monocytes Relative 7.1 Eosinophils Relative 0.2 Basophils Relative 0.3 Immature Granulocytes Relative 0.3 Neutrophils Absolute 6.90 Lymphocytes Absolute 2.46 Monocytes Absolute 0.72 Eosinophils Absolute 0.02 Basophils Absolute 0.03 Immature Granulocytes Absolute 0.03 Abnormal Labs Reviewed COMPREHENSIVE METABOLIC PANEL - Abnormal; Notable for the following components: Result Value Glucose 234 (*) All other components within normal limits XR Chest 2 Views Final Result FINDINGS/IMPRESSION: NO ACUTE FINDINGS. Normal heart size and pulmonary vascularity. Lungs are clear and costophrenic angles are sharp. No acute osseous abnormality. Cholecystectomy clips. -------- FINAL REPORT -------- Dictated By: Malik Laughlin Dictated Date: 11/05/2024 00:28 ET Assigned Physician: Malik Laughlin Reviewed and Electronically Signed By: Malik Laughlin Signed Date: 11/05/2024 00:29 ET Workstation ID: [id number] Transcribed By: Self Edit Transcribed Date: 11/05/2024 00:28 ET I have discussed the incidental/abnormal imaging and/or lab abnormalities with the patient and haveinstructed them the need for further evaluation and workup with their primary care doctor. The laboratory results, imaging results and other diagnostic exam results were reviewed in the EMR. EKG Interpretation Sinus rhythm at 96 bpm, compared EKG done 01/09/24 Critical Care Time None ? Medical Decision Making Medications albuterol 2.5 mg /3 mL (0.083 %) nebulizer solution 2.5 mg (2.5 mg nebulization Given 11/04/24 2225) albuterol 2.5 mg /3 mL (0.083 %) nebulizer solution (10 mg/hr nebulization Given 11/05/24 0110) methylPREDNISolone sodium succ (SOLU-Medrol) injection 125 mg (125 mg intravenous Given 11/05/24 0303) magnesium sulfate 2 gram/50 mL (4 %) IVPB 2 g (0 g intravenous Stopped 11/05/24 0504) diphenhydrAMINE (BENADRYL) injection 25 mg (25 mg intravenous Given 11/05/24 0304) acetaminophen (TYLENOL) tablet 1,000 mg (1,000 mg oral Given 11/05/24 0927) albuterol 2.5 mg /3 mL (0.083 %) nebulizer solution 2.5 mg (2.5 mg nebulization Given 11/05/24 1045) ED Course as of 11/05/246 Wed Nov 04, 2024 2240 Chest x-ray: No acute disease [KN] April Nov 05, 2024 0106 I received transfer of care and sinus patient approximately 2300 hrs. pending reevaluation after nebulizer treatment. Patient is a 69-year-old female with history of asthma complaining of chest discomfort for the last 3 days. Workup today is reassuring. X-ray is negative. She does report some minimal improvement of her symptoms following initial albuterol treatment although she is still quite wheezy on auscultation. She given an additional nebulizer treatment and will reassess. Viral panelis still pending at this time. [EN] 0252 Patient still having significant wheezing although it appears that patient was never given anysteroids to assist with her symptomology. She does have a significant amount of allergies, however it appears that she can tolerate Solu- Medrol. Will additionally give magnesium. Patient will be signed out to oncoming provider pending reevaluation of respiratory status as well as ambulatory trial. [EN] ED Course User Index [EN] JOANNA Finch [KN] Fortunato Fofana DO Clinical Impressions as of 11/05/242235 Chest pain, unspecified type Procedures Procedures Diagnosis 1. Chest pain, unspecified type Disposition Discharge ED Prescriptions Medication Sig Dispense Start Date End Date Auth. Provider methocarbamoL (ROBAXIN) 750 mg tablet Take 1 tablet (750 mg total) by mouth 4 (four) times a day for 5 days. 20 each 11/05/2024 11/10/2024 Bennie Valdez MD Physician Attestation Fortunato Fofana DO 11/04/24 2312 Fortunato Fofana DO 11/05/242235 * Bennie Valdez MD - 11/04/2024 4:46 PM EST Eduarda [id number] Chest Pain x 3 days SOB HTN Bennie Valdez MD 11/05/24 1006 HPI Chief Complaint Patient presents with Chest Pain Cp rad to l x 3 days 69-year-old female with past medical history of hypertension, diabetes, asthma presents with chief complaint of left-sided chest pain that has been ongoing for 3 days duration. Patient reports that she has left-sided chest pain which worsens with movement, nonexertional, not associated left arm paresthesias. She denies any complaints of nausea, vomiting or diarrhea. She denies any complaints of abdominal pain. She does report some shortness of breath; she reports it feels like her asthma exacerbation. Eduarda [id number] History provided by: Patient Parvez Coma Scale Score: 15 Patient History Past Medical History: Diagnosis Date Abdominal pain DX:Abdominal pain Allergic rhinitis 03/10/2018 DX:Allergic rhinitis Anxiety 03/10/2018 DX:Anxiety Asthma 02/18/2018 DX:Asthma Chronic obstructive pulmonary disease (COPD) ([facility]) 02/18/2018 DX:Chronic obstructive pulmonary disease (COPD) ([facility]) Depression 03/10/2018 DX:Depression Diabetes mellitus type 2 with neurological manifestations ([facility]) 02/18/2018 DX:Diabetes mellitus type 2 with neurological manifestations ([facility]) Diabetic peripheral neuropathy ([facility]) 02/01/2016 DX:Diabetic peripheral neuropathy ([facility]) Epigastric pain DX:Epigastric pain GERD (gastroesophageal reflux disease) 02/19/2018 DX:GERD (gastroesophageal reflux disease) History of colon polyps DX:History of colon polyps Hypertension 03/10/2018 DX:Hypertension Hypertriglyceridemia 03/10/2018 DX:Hypertriglyceridemia Insomnia 03/10/2018 DX:Insomnia Irritable bowel syndrome DX:Irritable bowel syndrome TONY (obstructive sleep apnea) 03/25/2018 DX:TONY (obstructive sleep apnea) Osteoarthrosis 05/17/2015 DX:Osteoarthrosis Panic attack 04/08/2017 DX:Panic attack Urinary incontinence 03/10/2018 DX:Urinary incontinence Venous insufficiency 03/10/2018 DX:Venous insufficiency Vitamin D deficiency 03/10/2018 DX:Vitamin D deficiency Past Surgical History: Procedure Laterality Date ANKLE SURGERY Right 2017 PROCEDURE: HISTORICAL ANKLE SURGERY; COMMENT: medial malleolar fracture SECTION PROCEDURE: HISTORICAL DELIVERY; COMMENT: x3 COLONOSCOPY 05/24/2020 PROCEDURE: HISTORICAL COLONOSCOPY; COMMENT: tubular adenoma ESOPHAGOGASTRODUODENOSCOPY PROCEDURE: [place] EGD TRANSORAL BIOPSY SINGLE/MULTIPLE; COMMENT: Performed in February 2021 during hospitalization HERNIA REPAIR PROCEDURE: HISTORICAL HERNIA REPAIR/ING HYSTERECTOMY PROCEDURE: HISTORICAL HYSTERECTOMY Family History Problem Relation Name Age of Onset Heart failure Mother Asthma Mother Heart failure Father Breast cancer Sister 45.00 ag 60 Asthma Brother Colon cancer Neg Hx Ovarian cancer Neg Hx Prostate cancer Neg Hx Social History Tobacco Use Smoking status: Never Smokeless tobacco: Never Substance Use Topics Alcohol use: No Drug use: No Review of Systems Review of Systems Constitutional: Negative. HENT: Negative. Respiratory: Positive for shortness of breath. Cardiovascular: Positive for chest pain. Gastrointestinal: Negative. Skin: Negative. Physical Exam ED Triage Vitals Temp Heart Rate Resp BP 11/04/24171611/04/24171611/04/24171611/04/241716 36.7 ??C (98.1 ??F) (!) 115 18 131/69 SpO2 Temp Source Heart Rate Source Patient Position 11/04/24201511/04/24171611/04/24171611/04/241716 97 % Oral Other (Comment) Sitting BP Location FiO2 (%) 11/04/241716 -- Left arm;Upper Physical Exam Constitutional: General: She is not in acute distress. Appearance: Normal appearance. She is not ill-appearing or toxic-appearing. HENT: Head: Normocephalic and atraumatic. Mouth/Throat: Mouth: Mucous membranes are moist. Eyes: Extraocular Movements: Extraocular movements intact. Conjunctiva/sclera: Conjunctivae normal. Cardiovascular: Rate and Rhythm: Normal rate and regular rhythm. Pulses: Normal pulses. Pulmonary: Effort: Pulmonary effort is normal. No respiratory distress. Breath sounds: Normal breath sounds. Chest: Comments: Left-sided reproducible chest wall tenderness to palpation. Abdominal: General: There is no distension. Palpations: Abdomen is soft. Tenderness: There is no abdominal tenderness. Musculoskeletal: General: Normal range of motion. Cervical back: Normal range of motion and neck supple. Right lower leg: No edema. Left lower leg: No edema. Skin: General: Skin is warm. Capillary Refill: Capillary refill takes less than 2 seconds. Neurological: General: No focal deficit present. Mental Status: She is alert and oriented to person, place, and time. Mental status is at baseline. Psychiatric: Mood and Affect: Mood normal. ED Course & MDM ED Course as of 11/09/24 2155 Wed Nov 04, 2024 224 Chest x-ray: No acute disease [KN] April Nov 05, 2024 0106 I received transfer of care and sinus patient approximately 2300 hrs. pending reevaluation after nebulizer treatment. Patient is a 69-year-old female with history of asthma complaining of chest discomfort for the last 3 days. Workup today is reassuring. X-ray is negative. She does report some minimal improvement of her symptoms following initial albuterol treatment although she is still quite wheezy on auscultation. She given an additional nebulizer treatment and will reassess. Viral panelis still pending at this time. [EN] 0252 Patient still having significant wheezing although it appears that patient was never given anysteroids to assist with her symptomology. She does have a significant amount of allergies, however it appears that she can tolerate Solu- Medrol. Will additionally give magnesium. Patient will be signed out to oncoming provider pending reevaluation of respiratory status as well as ambulatory trial. [EN] ED Course User Index [EN] JOANNA Finch [KN] Fortunato Fofana, Clinical Impressions as of 11/09/242154 Chest pain, unspecified type Medical Decision Making 69-year-old female, signed out to me this morning was pending reassessment. I reviewed the labs, and EKG. There is no ischemic changes on EKG. Troponins are flat. She was given treatment for asthma exacerbation. She does report she has had improvement in her symptoms of shortness of breath. She also reports that her chest pain improved with what ever she was given in the ER overnight. Her chest pain is reproducible on exam. D-dimer came back negative, not acutely concerning for pulmonary embolism. She is tachycardic, however this is sinus tachycardia. She reports that she is tachycardic at her baseline, and this also could be attributed to albuterol treatments; given that D-dimer is negative, low suspicion for pulmonary embolism. She also does not have any symptoms of hemoptysis, calf pain, unilateral lower extremity swelling, recent travel immobilization history which were placed at a higher risk for pulmonary embolism. Given the low Wells criteria, D-dimer is adequate at this time. No evidence of ACS, pericarditis, myocarditis, pulmonary embolism, pneumothorax, pneumonia, Zoster,or esophageal perforation. Historically not abrupt in onset, tearing or ripping, pulses symmetric, no evidence of aortic dissection. Furthermore, her chest pain is very reproducible on exam. It is likely musculoskeletal. 11:39 AM Given that patient has reassuring workup, and has been observed in the emergency department for total of 19 hours, and has been stable--she will be discharged with follow-up outpatient to primary care doctor. Patient agrees with this plan. Patient was given strict return precautions. Patient understood and agreed with plan. Procedures Bennie Valdez MD 11/05/24 7017 Bennie Valdez MD 11/09/24 6916 documented in this encounter Plan of Treatment Upcoming Encounters Date Type Department Care Team (Late st Contact Info) Description 01/21/2025 1:00 PM EDT Office Visit Bariatric Surgery [facility] [address] [place] [phone] Maira Zurita MD [address] [facility] [address] [facility] [address] [place] [address] [phone] 04/07/2025 9:00 AM EDT Office Visit Bariatric Surgery [facility] [address] [place] [phone] Ashlyn Marcus MD [address] [place] [address] [phone] documented as of this encounter Procedures Procedure Name Priority Date/Time Associated Diagnosis Comments D-DIMER STAT 11/05/2024 10:43 AM EST ECG 12-LEAD STAT 11/05/2024 10:41 AM EST RESPIRATORY VIRUS PANEL MOLECULAR STUDY STAT 11/04/2024 11:43 PM EST TROPONIN I HIGH SENSITIVITY STAT 11/04/2024 10:24 PM EST XR CHEST 2 VIEWS STAT 11/04/2024 9:57 PM EST ECG 12-LEAD STAT 11/04/2024 8:01 PM EST TROPONIN I HIGH SENSITIVITY STAT 11/04/2024 7:46 PM EST CBC WITH AUTO DIFFERENTIAL STAT 11/04/2024 7:46 PM EST CBC AND DIFFERENTIAL STAT 11/04/2024 7:46 PM EST B-TYPE NATRIURETIC PEPTIDE STAT 11/04/2024 7:46 PM EST MAGNESIUM STAT 11/04/2024 7:46 PM EST LIPASE STAT 11/04/2024 7:46 PM EST COMPREHENSIVE METABOLIC PANEL STAT 11/04/2024 7:46 PM EST ECG 12-LEAD STAT 11/04/2024 5:13 PM EST ECG ANNOTATED 11/04/2024 ECG ANNOTATED 11/04/2024 ECG ANNOTATED 11/04/2024 documented in this encounter Results * D-dimer, quantitative (11/05/2024 10:43 AM EST) D-Dimer, Quant (D-DU) <150 <=230 ng/mL DDU LAB COAGULATION METHOD 11/05/2024 11:21 AM EST [facility] Blood Venous blood specimen / Unknown Venipuncture / Unknown 11/05/2024 10:43 AM EST 11/05/2024 11:08 AM EST Narrative [facility] - 11/05/2024 11:21 AM EST D-Dimer <230 ng/mL (D-Dimer units) is the threshold for exclusion of DVT/PE. D-Dimer may be elevated in: Critically ill, severely infected, trauma patients, DIC, acute CVA, acute SC, unstable angina, AF, old age, , and smoking. D-Dimer may be decreased with: Initiation of heparin therapy and oral anticoagulants. Bennie Valdez MD LAB BLOOD ORDERABLES Final Resu lt Performing Organization Address City/[facility]/ZIP Co de Phone Number [facility] [address] [place] [address], * ECG 12 lead (11/05/2024 10:41 AM EST) Pathologist [facility] Ventricular Rate ECG 108 BPM GEMUSE Atrial Rate 108 BPM GEMUSE P-R Interval 150 ms GEMUSE QRS Duration 80 ms GEMUSE Q-T Interval 346 ms GEMUSE QTc 463 ms GEMUSE P Wave [place] 40 degrees GEMUSE R [place] -29 degrees GEMUSE T [place] 15 degrees GEMUSE ECG Interpretation Sinus tachycardia Minimal voltage criteria for LVH, may be normal variant Anterolateral infarct , age undetermined Abnormal ECG When compared with ECG of 04-NOV-2024 20:01, (unconfirmed) Anterolateral infarct is now Present Confirmed by Swetha HIGGINS YUFENG ([id number]) on 11/05/2024 3:16:36 PM GEMUSE 11/05/2024 10:4 1 AM EST 11/05/2024 3:16 PM EST [facility] José Miguel VERA ECG ORDERABLES Final Result Performing Organization Address [facility] Co de Phone Number RIA * Respiratory virus panel molecular study (11/04/2024 11:43 PM EST) [facility] Adenovirus Detection by PCR Not Detected Not Detected LAB MICROBIOLOGY METHOD 11/05/2024 1:23 AM EST [facility] Influenza A PCR Not Detected Not Detected LAB MICROBIOLOGY METHOD 11/05/2024 1:23 AM EST [facility] Influenza B PCR Not Detected Not Detected LAB MICROBIOLOGY METHOD 11/05/2024 1:23 AM EST [facility] Coronavirus 229E Not Detected Not Detected LAB MICROBIOLOGY METHOD 11/05/2024 1:23 AM EST [facility] Coronavirus HKU1 Not Detected Not Detected LAB MICROBIOLOGY METHOD 11/05/2024 1:23 AM EST [facility] Coronavirus OC43 Not Detected Not Detected LAB MICROBIOLOGY METHOD 11/05/2024 1:23 AM [facility] Coronavirus NL63 Not Detected Not Detected LAB MICROBIOLOGY METHOD 11/05/2024 1:23 AM [facility] Parainfluenza Virus 1 Not Detected Not Detected LAB MICROBIOLOGY METHOD 11/05/2024 1:23 AM [facility] Parainfluenza Virus 2 Not Detected Not Detected LAB MICROBIOLOGY METHOD 11/05/2024 1:23 AM [facility] Parainfluenza Virus 3 Not Detected Not Detected LAB MICROBIOLOGY METHOD 11/05/2024 1:23 AM [facility] Parainfluenza Virus 4 Not Detected Not Detected LAB MICROBIOLOGY METHOD 11/05/2024 1:23 AM [facility] RSV PCR Not Detected Not Detected LAB MICROBIOLOGY METHOD 11/05/2024 1:23 AM [facility] Human Metapneumovirus A and B Not Detected Not Detected LAB MICROBIOLOGY METHOD 11/05/2024 1:23 AM [facility] Rhinovirus/Entero virus Not Detected Not Detected LAB MICROBIOLOGY METHOD 11/05/2024 1:23 AM [facility] Bordetella pertussis Not Detected Not Detected LAB MICROBIOLOGY METHOD 11/05/2024 1:23 AM [facility] Bordetella parapertussis Not Detected Not Detected LAB MICROBIOLOGY METHOD 11/05/2024 1:23 AM [facility] Mycoplasma pneumo by PCR Not Detected Not Detected LAB MICROBIOLOGY METHOD 11/05/2024 1:23 AM [facility] Chlamydia pneumoniae Not Detected Not Detected LAB MICROBIOLOGY METHOD 11/05/2024 1:23 AM [facility] SARS COV-2 Not Detected Not Detected LAB MICROBIOLOGY METHOD 11/05/2024 1:23 AM [facility] Swab Both anterior nares / Unknown Non-blood Collection / Unknown 11/04/2024 11:43 PM EST 11/05/2024 12:30 AM EST Narrative [facility] - 11/05/2024 1:23 AM EST Testing was performed using the [employer] Respiratory Pathogen PCR Assay. All results must be correlated with the clinical findings. Results should not be used as the sole basis for diagnosis. False Negative results may occur from the presence of sequence variants in the region targeted by the assay or the presence of inhibitors. Results may be affected by concurrent antiviral/antimicrobial therapy or levels of organisms that are below the limit of detection. us Fortunato Fofana DO LAB MICROBIOLOGY - GENERAL ORD ERABLES Final Result Performing Organization Address [facility]/ZIP Co de Phone Number [facility] [address] [place] [address], [place] [phone] * Troponin I high sensitivity (11/04/2024 10:24 PM EST) [facility] High Sensitivity Troponin I 4 <=54 ng/L LAB CHEMISTRY METHOD 11/04/2024 11:00 PM EST [facility] Blood Venous blood specimen / Unknown Venipuncture / Unknown 11/04/2024 10:24 PM EST 11/04/2024 10:32 PM EST Narrative [facility] - 11/04/2024 11:00 PM EST High levels of biotin in samples may falsely decrease hsTroponin values. ??Use caution when interpreting hsTroponin results in patients taking biotin who exhibit renal impairment (eGFR <60) or in patients taking more than 20 mg/day of biotin. us Fortunato Fofana DO LAB BLOOD ORDERABLES Final Res ult Performing Organization Address [facility]/ZIP Co de Phone Number [facility] [address] [place] [address], [place] [phone] * XR Chest 2 Views (11/04/2024 9:57 PM EST) Anatomical Region Laterality Modality Body Radiographic Kandice ging 11/05/2024 12:2 8 AM EST Impressions 11/05/2024 12:29 AM EST FINDINGS/IMPRESSION: NO ACUTE FINDINGS. Normal heart size and pulmonary vascularity. ??Lungs are clear and costophrenic angles are sharp. ??No acute osseous abnormality. ??Cholecystectomy clips. -------- FINAL REPORT -------- Dictated By: Malik Laughlin Dictated Date: 11/05/2024 00:28 ET Assigned Physician: Malik Laughlin Reviewed and Electronically Signed By: Malik Laughlin Signed Date: 11/05/2024 00:29 ET Workstation ID: [id number] Transcribed By: Self Edit Transcribed Date: 11/05/2024 00:28 ET Narrative 11/05/2024 12:29 AM EST XR CHEST 2 VIEWS INDICATION: chest pain TECHNIQUE: XR CHEST 2 VIEWS COMPARISON: No priors available. Procedure Note Malik Laughlin MD - 11/05/2024 XR CHEST 2 VIEWS INDICATION: chest pain TECHNIQUE: XR CHEST 2 VIEWS COMPARISON: No priors available. IMPRESSION: FINDINGS/IMPRESSION: NO ACUTE FINDINGS. Normal heart size and pulmonary vascularity. Lungs are clear andcostophrenic angles are sharp. No acute osseous abnormality.Cholecystectomy clips. -------- FINAL REPORT -------- Dictated By: Malik Laughlin Dictated Date: 11/05/2024 00:28 ET Assigned Physician: Malik Laughlin Reviewed and Electronically Signed By: Malik Laughlin Signed Date: 11/05/2024 00:29 ET Workstation ID: [id number] Transcribed By: Self Edit Transcribed Date: 11/05/2024 00:28 ET us Fortunato Fofana DO IMG XR PROCEDURES Final Result * ECG 12 lead (11/04/2024 8:01 PM EST) Ventricular Rate ECG 96 BPM GEMUSE Atrial Rate 96 BPM GEMUSE P-R Interval 168 ms GEMUSE QRS Duration 86 ms GEMUSE Q-T Interval 366 ms GEMUSE QTc 462 ms GEMUSE P Wave [place] 45 degrees GEMUSE R [place] -26 degrees GEMUSE T [place] 26 degrees GEMUSE ECG Interpretation Normal sinus rhythm Minimal voltage criteria for LVH, may be normal variant Borderline ECG When compared with ECG of 04-NOV-2024 17:13, (unconfirmed) No significant change was found Confirmed by Swetha HIGGINS YUFENG ([id number]) on 11/05/2024 12:38:57 PM GEMUSE 11/04/2024 8:01 PM EST 11/05/2024 12:38 PM EST Fortunato Fofana DO ECG ORDERABLES Final Result GEMUSE * CBC auto differential (11/04/2024 7:46 PM EST) WBC 10.2 4.8 - 10.8 K/mcL LAB HEMETOLOGY METHOD 11/04/2024 8:02 PM [facility] RBC 4.30 3.80 - 4.80 M/mcL LAB HEMETOLOGY METHOD 11/04/2024 8:02 PM [facility] Hemoglobin 12.6 11.5 - 16.0 g/dL LAB HEMETOLOGY METHOD 11/04/2024 8:02 PM [facility] Hematocrit 38.3 35.0 - 47.0 % LAB HEMETOLOGY METHOD 11/04/2024 8:02 PM [facility] MCV 90.1 79.0 - 98.0 FL LAB HEMETOLOGY METHOD 11/04/2024 8:02 PM [facility] MCH 29.6 27.0 - 32.0 pcg LAB HEMETOLOGY METHOD 11/04/2024 8:02 PM [facility] MCHC 32.9 32.0 - 37.0 g/dL LAB HEMETOLOGY METHOD 11/04/2024 8:02 PM [facility] RDW 12.9 11.0 - 15.0 % LAB HEMETOLOGY METHOD 11/04/2024 8:02 PM [facility] Platelets 207 130 - 400 K/mcL LAB HEMETOLOGY METHOD 11/04/2024 8:02 PM [facility] MPV 10.6 7.0 - 11.0 FL LAB HEMETOLOGY METHOD 11/04/2024 8:02 PM [facility] NRBC 0.0 <1.0 % LAB HEMETOLOGY METHOD 11/04/2024 8:02 PM [facility] NRBC Absolute 0.00 <0.10 K/mcL LAB HEMETOLOGY METHOD 11/04/2024 8:02 PM [facility] Neutrophils Relative 67.9 % LAB HEMETOLOGY METHOD 11/04/2024 8:02 PM [facility] Lymphocytes Relative 24.2 % LAB HEMETOLOGY METHOD 11/04/2024 8:02 PM [facility] Monocytes Relative 7.1 % LAB HEMETOLOGY METHOD 11/04/2024 8:02 PM [facility] Eosinophils Relative 0.2 % LAB HEMETOLOGY METHOD 11/04/2024 8:02 PM [facility] Basophils Relative 0.3 % LAB HEMETOLOGY METHOD 11/04/2024 8:02 PM [facility] Immature Granulocytes Relative 0.3 % LAB HEMETOLOGY METHOD 11/04/2024 8:02 PM [facility] Neutrophils Absolute 6.90 1.50 - 7.00 K/mcL LAB HEMETOLOGY METHOD 11/04/2024 8:02 PM [facility] Lymphocytes Absolute 2.46 1.00 - 5.00 K/mcL LAB HEMETOLOGY METHOD 11/04/2024 8:02 PM [facility] Monocytes Absolute 0.72 0.20 - 1.00 K/mcL LAB HEMETOLOGY METHOD 11/04/2024 8:02 PM [facility] Eosinophils Absolute 0.02 0.00 - 0.50 K/[facility] LAB HEMETOLOGY METHOD 11/04/2024 8:02 PM EST [facility] Basophils Absolute 0.03 0.00 - 0.20 K/[facility] LAB HEMETOLOGY METHOD 11/04/2024 8:02 PM EST [facility] Immature Granulocytes Absolute 0.03 0.00 - 0.03 K/[facility] LAB HEMETOLOGY METHOD 11/04/2024 8:02 PM EST [facility] Blood Venous blood specimen / Unknown Venipuncture / Unknown 11/04/2024 7:46 PM EST 11/04/2024 7:54 PM EST us Fortunato Fofana DO LAB BLOOD ORDERABLES Final Res ult Performing Organization Address [facility]/ZIP Co de Phone Number [facility] [address] [place] [address], [place] [phone] * B-type natriuretic peptide (11/04/2024 7:46 PM EST) BNP 15 <=100 pcg/mL LAB CHEMISTRY METHOD 11/04/2024 8:30 PM EST [facility] Blood Venous blood specimen / Unknown Venipuncture / Unknown 11/04/2024 7:46 PM EST 11/04/2024 7:54 PM EST Fortunato Fofana DO LAB BLOOD ORDERABLES Final Res ult [facility] [address] [place] [address], [place] [phone] * Magnesium (11/04/2024 7:46 PM EST) Magnesium 2.2 1.9 - 2.6 mg/dL LAB CHEMISTRY METHOD 11/04/2024 8:32 PM EST [facility] Blood Venous blood specimen / Unknown Venipuncture / Unknown 11/04/2024 7:46 PM EST 11/04/2024 7:54 PM EST us Fortunato Fofana DO LAB BLOOD ORDERABLES Final Res ult Performing Organization Address [facility]/ZIP Co de Phone Number [facility] [address] [place] [address], [place] [phone] * Lipase (11/04/2024 7:46 PM EST) [facility] Lipase 63 13 - 75 unit/L LAB CHEMISTRY METHOD 11/04/2024 8:29 PM EST [facility] Blood Venous blood specimen / Unknown Venipuncture / Unknown 11/04/2024 7:46 PM EST 11/04/2024 7:54 PM EST us Fortunato Fofana DO LAB BLOOD ORDERABLES Final Res ult Performing Organization Address [facility]/ZIP Co de Phone Number [facility] [address] [place] [address], [place] [phone] * (ABNORMAL) Comprehensive metabolic panel (11/04/2024 7:46 PM EST) [facility] Sodium 138 133 - 145 mmol/L LAB CHEMISTRY METHOD 11/04/2024 8:32 PM [facility] Potassium 3.6 3.5 - 5.5 mmol/L LAB CHEMISTRY METHOD 11/04/2024 8:32 PM [facility] Chloride 105 96 - 110 mmol/L LAB CHEMISTRY METHOD 11/04/2024 8:32 PM [facility] CO2 27 21 - 32 mmol/L LAB CHEMISTRY METHOD 11/04/2024 8:32 PM [facility] Anion Gap 6 3 - 11 LAB CHEMISTRY METHOD 11/04/2024 8:32 PM [facility] Glucose 234(H) 70 - 100 mg/dL LAB CHEMISTRY METHOD 11/04/2024 8:32 PM [facility] BUN 20 5 - 25 mg/dL LAB CHEMISTRY METHOD 11/04/2024 8:32 PM [facility] Creatinine 0.68 0.50 - 1.10 mg/dL LAB CHEMISTRY METHOD 11/04/2024 8:32 PM [facility] eGFR 94 >=60 mL/min/1. 73m2 LAB CHEMISTRY METHOD 11/04/2024 8:32 PM [facility] Comment:Calculation based on the??Chronic Kidney Disease Epidemiology Collaboration (CKD-EPI) equation refit??without adjustment for race. BUN/Creatinine Ratio 29.4 LAB CHEMISTRY METHOD 11/04/2024 8:32 PM [facility] Calcium 9.1 8.5 - 10.5 mg/dL LAB CHEMISTRY METHOD 11/04/2024 8:32 PM [facility] AST (SGOT) 12 10 - 42 unit/L LAB CHEMISTRY METHOD 11/04/2024 8:32 PM [facility] ALT (SGPT) 27 10 - 60 unit/L LAB CHEMISTRY METHOD 11/04/2024 8:32 PM [facility] Alkaline Phosphatase 102 42 - 121 unit/L LAB CHEMISTRY METHOD 11/04/2024 8:32 PM [facility] Total Protein 6.6 6.0 - 8.0 g/dL LAB CHEMISTRY METHOD 11/04/2024 8:32 PM [facility] Albumin 3.4 3.2 - 5.0 g/dL LAB CHEMISTRY METHOD 11/04/2024 8:32 PM [facility] Total Bilirubin 0.2 0.0 - 1.4 mg/dL LAB CHEMISTRY METHOD 11/04/2024 8:32 PM [facility] Blood Venous blood specimen / Unknown Venipuncture / Unknown 11/04/2024 7:46 PM EST 11/04/2024 7:54 PM EST us Fortunato P Neenan DO LAB BLOOD ORDERABLES Final Res ult Performing Organization Address [facility]/ZIP Co de Phone Number [facility] [address] [place] [address], [place] [phone] * Troponin I high sensitivity (11/04/2024 7:46 PM EST) [facility] High Sensitivity Troponin I 4 <=54 ng/L LAB CHEMISTRY METHOD 11/04/2024 8:26 PM EST [facility] Blood Venous blood specimen / Unknown Venipuncture / Unknown 11/04/2024 7:46 PM EST 11/04/2024 7:54 PM EST Narrative [facility] - 11/04/2024 8:26 PM EST High levels of biotin in samples may falsely decrease hsTroponin values. ??Use caution when interpreting hsTroponin results in patients taking biotin who exhibit renal impairment (eGFR <60) or in patients taking more than 20 mg/day of biotin. Fortunato Nasra Fofana DO LAB BLOOD ORDERABLES Final Res ult Performing Organization Address [facility] Co de Phone Number [facility] [address] [place] [address], [place] [phone] * ECG 12 lead (11/04/2024 5:13 PM EST) [facility] Ventricular Rate ECG 111 BPM GEMUSE Atrial Rate 111 BPM GEMUSE P-R Interval 158 ms GEMUSE QRS Duration 80 ms GEMUSE Q-T Interval 342 ms GEMUSE QTc 465 ms GEMUSE P Wave [place] 45 degrees GEMUSE R [place] -30 degrees GEMUSE T [place] 23 degrees GEMUSE ECG Interpretation Sinus tachycardia Left axis deviation Minimal voltage criteria for LVH, may be normal variant Poor R wave progression Abnormal ECG When compared with ECG of 09-JAN-2024 21:14, No significant change was found Confirmed by Swetha HIGGINS YUFENG ([id number]) on 11/05/2024 12:28:14 PM GEMUSE 11/04/2024 5:13 PM EST 11/05/2024 12:28 PM EST Fortunato Fofana DO ECG ORDERABLES Final Result GEMUSE * ECG-Annotated (11/04/2024) Provider Onbase MD ECG ORDERABLES Final Result * ECG-Annotated (11/04/2024) Provider Onbase MD ECG ORDERABLES Final Result * ECG-Annotated (11/04/2024) Provider Onbase MD ECG ORDERABLES Final Result documented in this encounter Visit Diagnoses Diagnosis Chest pain, unspecified type- Primary documented in this encounter Administered Medications Inactive Administered Medications - up to 3 most recent administrations Medication Order MAR Action Action Date Dose Rate Site acetaminophen (TYLENOL) tablet 1,000 mg 1,000 mg, oral, Once, On Sat11/05/24 at 0750, For 1 dose Given 11/05/2024 9:27 AM EST 1,000 mg albuterol 2.5 mg /3 mL (0.083 %) nebulizer solution 2.5 mg 2.5 mg, nebulization, Once, On Sat11/04/24 at 2224, For 1 dose Given 11/04/2024 10:25 PM EST 2.5 mg albuterol 2.5 mg /3 mL (0.083 %) nebulizer solution 2.5 mg 2.5 mg, nebulization, Once, On Sat11/05/24 at 1029, For 1 dose Given 11/05/2024 10:45 AM EST 2.5 mg albuterol 2.5 mg /3 mL (0.083 %) nebulizer solution 10 mg/hr (12 mL/hr), nebulization, Once, On Sat11/05/24 at 0102, For 1 dose Given 11/05/2024 1:10 AM EST 10 mg/hr 12 m L/hr diphenhydrAMINE (BENADRYL) injection 25 mg 25 mg, intravenous, Once, On Sat25 at 0254, For 1 dose Given 11/05/2024 3:04 AM EST 25 mg magnesium sulfate 2 gram/50 mL (4 %) IVPB 2 g 2 g, intravenous, at 25 mL/hr, Administer over 2 Hours, Once, On April 11/05/24 at 0254, For 1 dose New Bag 11/05/2024 3:03 AM EST 2 g 25 mL/hr methylPREDNISolone sodium succ (SOLU-Medrol) injection 125 mg 125 mg, intravenous, Once, On April 11/05/24 at 0254, For 1 dose, Reconstitute each 125 mg vial with 2 mL sterile water for injection to a concentration of 62.5 mg/mL. Given 11/05/2024 3:03 AM EST 125 mg documented in this encounter Discontinued Medications Medication Sig Discontinue Reason Start Date End Da te cyclobenzaprine (FLEXERIL) 10 mg tablet TAKE ONE TABLET BY MOUTH THREE TIMES A DAY NEEDED FOR MUSCLE SPASMS (TRAYS) ^1R1,1R2,1R4 Allergic response 10/17/2024 11/05/2024 documented as of this encounter Active and Recently Administered Medications Times are shown in EST. Scheduled Medication Order 11/03/2024 11/04/2024 11/05/2024 acetaminophen (TYLENOL) tablet 1,000 mg (COMPLETED) 1,000 mg, oral, Once, On April 11/05/24 at 0750, For 1 dose 0927 (Given - Provid er: Valencia Matson RN) albuterol 2.5 mg /3 mL (0.083 %) nebulizer solution 2.5 mg (COMPLETED) 2.5 mg, nebulization, Once, On Sat11/04/24 at 2224, For 1 dose 2225 (Given - Provider: Karla Murray RN) albuterol 2.5 mg /3 mL (0.083 %) nebulizer solution 2.5 mg (COMPLETED) 2.5 mg, nebulization, Once, On Sat11/05/24 at 1029, For 1 dose 1045 (Given - Provid er: Valencia Matson RN) albuterol 2.5 mg /3 mL (0.083 %) nebulizer solution (COMPLETED) 10 mg/hr (12 mL/hr), nebulization, Once, On April 11/05/24 at 0102, For 1 dose 0110 (Given - Provid er: Omaira Sanders RN) diphenhydrAMINE (BENADRYL) injection 25 mg (COMPLETED) 25 mg, intravenous, Once, On April 11/05/24 at 0254, For 1 dose 0304 (Given - Provid er: Omaira Sanders RN) magnesium sulfate 2 gram/50 mL (4 %) IVPB 2 g (COMPLETED) 2 g, intravenous, at 25 mL/hr, Administer over 2 Hours, Once, On April 11/05/24 at 0254, For 1 dose 0303 (New Bag - Provider: Omaira Sanders RN)0504 (Stopped - Provider: Omaira Sanders RN) methylPREDNISolone sodium succ (SOLU-Medrol) injection 125 mg (COMPLETED) 125 mg, intravenous, Once, On April 11/05/24 at 0254, For 1 dose, Reconstitute each 125 mg vial with 2 mL sterile water for injection to a concentration of 62.5 mg/mL. 0303 (Given - Provid er: Omaira Sanders RN) documented in this encounter Additional Health Concerns Infection Onset Date Last Indicated Resolved Time Respiratory Rule-Out 11/04/2024 11/04/2024 025 1:23 AM EST COVID-19 Rule-Out 11/04/2024 11/04/2024 11/05/2024 1:23 AM EST documented as of this encounter Care Teams Human Resources Training Manager Relationship Specialty Start Date End Date Charo Chakraborty MD [address] [place] [phone] PCP - General Internal Medicine 09/25/24 documented as of this encounter
--- OUTSIDE RECORDS SUMMARY | 2024-11-30 13:20 | XMS_ITS ---
Author Organization [facility] Address [address] [place] [address] Care Team Providers Care Mine Utility Operator Name Role Phone JAXON AGUERO Unavailable [phone] Encounters Encounter Location Date Provider Diagnosis [facility] [address] [phone] 02/03/2024 JAXONJAKI AGUERO ASSESSMENTS Encounter Date Diagnosis Assessment Notes Treatment [...] minimum of 6 months The most recent [employer] of clinical endocrinologists and [employer] of endocrinology guidelines recommend patients who [...] track activity level. Consider using apps like Audemat, [employer], lose it, stick as needed for self-monitoring and weight management. Consider group exercises. Consider hiring a field trainer. Regular exercise is keene to sustainable health [...] counseling and psychiatry and Dr Oliveira at [facility]. We would like to cover regular topics [...] software and direct typing Please excuse inadvertent food service clerk or typing errors, or uncorrected word substitutions Although every attempt has been made by the provider to proofread this document, occasional misspellings and typographical errors may still be present Due to the previous pandemic, and the use of personal protective equipment (PPE) This may decrease voice recognition accuracy Inadvertent food service clerk errors may occur PLAN OF TREATMENT No Information Progress Notes * Jazlyn VARGASDOB: 5 (69 yo F)Acc No.[id number]:02/03/2024 Patient:??Jazlyn VARGAS Provider:??JAXON AGUERO NP :[id number]?Age:68 Y?Sex:Fe male Date:02/03/2024 Address:[address] [place], [place] [id number] Subjective: * Chief Complaints: * ? * [...] medications, dual incretins, appetitite suppressants ?#Weight Management ?02/03/2024: Weight lbs, BMI: ?Patient referred to us from . ?Patient works as ?Highest weight: lbs ?Lowest weight: lbs ?Goal weight: lbs ?TONY screening/STOP-BANG/[place], * ?Metabolic workup:* ?Thyroid? No recent screening [...] minimum of 6 months The most recent [employer] Association of clinical endocrinologists and [employer] College of endocrinology guidelines recommend patients who [...] track activity level. Consider using apps like Audemat, myfitnesspal, lose it, stick as needed for self-monitoring and weight management. Consider group exercises. Consider hiring a field trainer. Regular exercise is keene to sustainable health [...] counseling and psychiatry and Dr Oliveira at [facility]. We would like to cover regular topics [...] software and direct typing Please excuse inadvertent food service clerk or typing errors, or uncorrected word substitutions Although every attempt has been made by the provider to proofread this document, occasional misspellings and typographical errors may still be present Due to the previous pandemic, and the use of personal protective equipment (PPE) This may decrease voice recognition accuracy Inadvertent food service clerk errors may occur. Plan: * Treatment: * Procedure Codes:??80542 NO S HOW OFFICE VISIT * Images: Billing Information: * Visit Code:?? * Procedure Codes:?? 99813 NO SHOW OFFICE VISIT. * Sign off status: Pending * Provider:??JAXON AGUERO NP Date:??02/2024 History and Physical Notes * HPI (History [...] Lowest weight: lbs Goal weight: lbs TONY screening/STOP-BANG/[place], * Metabolic workup:* Thyroid? No recent screening [...]
--- OUTSIDE RECORDS SUMMARY | 2024-11-30 13:21 | XMS_ITS | Encounter Summary ---
Author Organization [facility] Address [address] [place] [address] Care Team Providers Care Ground Surveillance Systems Operator Name Role Phone Charo Chakraborty MD Primary Care Provider [phone] Reason for Visit * Reason Onset Date Comments Pharmacy 11/04/2024 Encounter Details Date Type Department Care Team (Late st Contact Info) Description 11/04/2024 Telephone Internal Medicine - [place] [address] [place] [phone] Charo Chakraborty MD [address] [facility] [address] [place] [phone] Pharmacy Social History Tobacco Use Types Packs/Day Years [...] Assessment Author No 08/28/2024 1:36 PM EST Murray, De bra, RN * Do you have serious difficulty [...] Refills Last Filled Start Date End Date pantoprazole (PROTONIX) 40 mg EC tablet Take 1 tablet (40 mg total) by mouth 1 (one) time each day. Do not crush, chew, or split. 30 each 5 11/04/2024 05/03/2025 documented in this encounter Progress Notes * Charo Chakraborty MD - 11/04/2024 3:07 PM EST Pantoprazole 40 mg sent * Helena Lopez - 11/04/2024 12:24 PM EST Zehra at [facility] is requesting a cb to confirm following meds: Pantoprazole 20mg Omeprazole 20mg Is to be taken together for GERD? She states the pt can also be prescribed pantoprazole 40mg. Cb# to confirm [phone] documented in this encounter Plan of Treatment Upcoming Encounters Date Type Department Care Team (Late st Contact Info) Description 01/21/2025 1:00 PM EDT Office Visit Bariatric Surgery - [address] [place] [phone] Maira Zurita MD 175 [facility] [address] [place], [place] [phone] 04/07/2025 9:00 AM EDT Office Visit Bariatric Surgery - [place] [address] [phone] Ashlyn Marcus MD 175 [facility] [address] [place] [phone] documented as of this encounter Visit Diagnoses Not on filedocumented in this encounter Additional Health Concerns Infection Onset Date Last Indicated Resolved Time Respiratory Rule-Out 11/04/2024 11/04/2024 025 1:23 AM EST COVID-19 Rule-Out 11/04/2024 11/04/2024 11/05/2024 1:23 AM EST documented as of this encounter Care Teams Ground Surveillance Systems Operator Relationship Specialty Start Date End Date Charo Chakraborty MD 175 [facility] [address] [place] [phone] PCP - General Internal Medicine 09/25/24 documented as of this encounter
--- OUTSIDE RECORDS SUMMARY | 2024-11-30 13:21 | XMS_ITS | Encounter Summary ---
Author Organization [facility] Address [address] [place] [address] Care Team Providers Care Linux Consultant Name Role Phone Charo Chakraborty MD Primary Care Provider [phone] Encounter Details Date Type Department Care Team ([facility] st Contact Info) Description 11/11/2024 Telephone Internal Medicine - [place] [address] [place] [phone] Charo Chakraborty MD [address] [facility] [address] [place] [phone] Social History Tobacco Use Types Packs/Day Years [...] Refills Last Filled Start Date End Date sucralfate (CARAFATE) 100 mg/mL suspension Take 10 mL (1 g total) by mouth every 6 (six) hours. Before meals and at bedtime 1242 mL 7 11/11/2024 documented in this encounter Progress Notes * Charo Chakraborty MD - 11/11/2024 9:59 AM EST changed * Kurt Smith [place] - 11/11/2024 9:48 AM EST Please advise request below * Helena Lopez - 11/11/2024 9:36 AM EST Zehra at [email or web address] is calling [phone] Pt is currently on 100mL suspension for sucralfate, that is equal to 2 and a half day supply Zehra is asking if provider is willing to change dosage to 1242 mL that will last pt the full month? Please advise, ty documented in this encounter Plan of Treatment Upcoming Encounters Date Type Department Care Team (Late st Contact Info) Description 01/21/2025 1:00 PM EDT Office Visit Bariatric Surgery - [place] 175 [facility] [address] [place] [phone] Maira Zurita MD [address] [phone] 04/07/2025 9:00 AM EDT Office Visit Bariatric Surgery - [place] [address] [phone] Ashlyn Marcus MD [address] [phone] documented as of this encounter Visit Diagnoses Not on filedocumented in this encounter Discontinued Medications Medication Sig Discontinue Reason Start Date End Da te sucralfate (CARAFATE) 100 mg/mL suspension Take 10 mL (1 g total) by mouth every 6 (six) hours. Before meals and at bedtime Reorder 11/05/2024 11/11/2024 documented as of this encounter Care Teams Linux Consultant Relationship Specialty Start Date End Date Charo Chakraborty MD [address] [phone] PCP - General Internal Medicine 09/25/24 documented as of this encounter
--- OUTSIDE RECORDS SUMMARY | 2024-11-30 13:21 | XMS_ITS | Clinical Summary ---
Author Organization [address] Address [address] [place] [address] Phone Care Team Providers Care Shuttle Fitting Supervisor Name Role Phone Charo Chakraborty MD Primary Care Provider [phone] Allergies Active Allergy Reactions Criticality Noted Date [...] pain in her lungs like burning. Medications atorvastatin (LIPITOR) 10 mg tablet Take 1 tablet (10 mg total) by mouth 1 (one) time each day. 024 Active cholecalciferol (VITAMIN D-3) 50 mcg (2,000 unit) capsule Take 1 capsule (2,000 Units total) by mouth 1 (one) time each day. Active cyclobenzaprine (FLEXERIL) 5 mg tablet Take 1 tablet (5 mg total) by mouth at bedtime as needed. Active diphenhydrAMINE (Banophen) 25 mg capsule TAKE ONE CAPSULE BY MOUTH EVERY DAY NEEDED FOR ITCHING OR ALLERGIES (VIAL) Active fluticasone (Flonase Sensimist) 27.5 mcg/actuation nasal spray Administer 2 sprays into affected nostril(s). Active fluticasone-umec lidinium-vilante rol (Trelegy Ellipta) 100-62.5-25 mcg inhaler Inhale 1 puff (100 mcg total) by mouth. 022 Active furosemide (LASIX) 20 mg tablet TAKE ONE TABLET BY MOUTH EVERY DAY ^1R1 024 Active gabapentin (NEURONTIN) 300 mg capsule 1 cap po in am, 1 cap at noon, 2 cap at night 024 Active hydrocortisone valerate (WEST-JAYLENE) 0.2 % ointment Apply to affected areas on body 2 times a day for 7 days. Avoid face and groin Active ketotifen (ZADITOR) 0.025 % ophthalmic solution Administer 1 drop into affected eye(s). Active loperamide (IMODIUM) 2 mg capsule Take 1 capsule (2 mg total) by mouth. Active aluminum-magnesi um hydroxide-simeth icone (Mintox Maximum Strength) 400-400-40 mg/5 mL suspension Take 5 mL by mouth. 024 Active meclizine (ANTIVERT) 25 mg tablet Take 1 tablet (25 mg total) by mouth. 024 Active omega-3 acid ethyl esters (LOVAZA) 1 gram capsule TAKE ONE CAPSULE BY MOUTH TWICE A DAY ^1R1,1R4 024 Active pantoprazole (PROTONIX) 20 mg EC tablet Take 1 tablet (20 mg total) by mouth 1 (one) time each day. 024 Active roflumilast 250 mcg tablet TAKE ONE TABLET BY MOUTH EVERY DAY ^1R4 024 Active simethicone (MYLICON,GAS-X) 180 mg capsule TAKE ONE CAPSULE BY MOUTH THREE TIMES A DAY WITH MEALS (VIAL) Active estradioL (ESTRACE) 0.01 % (0.1 mg/gram) vaginal cream APPLY A THIN LAYER TO VAGINA / VULVA TWO TIMES WEEKLY AT BEDTIME (BULK) 42.5 g 3 Active blood sugar diagnostic (RestorandoTouch Verio test strips) test strip USE DAILY DIRECTED (BULK) 100 strip 1 Active gabapentin (Neurontin) 400 mg capsule Take 1 capsule (400 mg total) by mouth 3 (three) times a day. 90 each 3 024 Active albuterol 2.5 mg /3 mL (0.083 %) nebulizer solution INHALE THE CONTENTS OF 1 VIAL VIA NEBULIZER EVERY 6 HOURS NEEDED FOR WHEEZING (BULK) 360 mL 10 024 Active cetirizine (ZyrTEC) 10 mg tablet TAKE ONE TABLET BY MOUTH EVERY DAY ^1R1 30 tablet 5 Active EPINEPHrine (EPIPEN) 0.3 mg/0.3 mL injectionIndicat ions:Mild intermittent asthma without complication INJECT 1 SYRINGE INTRAMUSCULARLY NEEDED FOR ANAPHYLAXIS (BULK) 2 each Active magnesium oxide (MAG-OX) 400 mg (241.3 elemental magnesium) tablet TAKE ONE TABLET BY MOUTH EVERY DAY ^1R4 30 tablet Active HealthyLax 17 gram packet TAKE THE CONTENTS OF ONE PACKET BY MOUTH ONCE DAILY (BULK) 30 packet Active BD Ultra-Fine Short Pen Needle 31 gauge x 02/12 needle USE TO INJECT INSULIN FOUR TIMES A DAY (BULK) 100 each Active meloxicam (MOBIC) 7.5 mg tablet TAKE ONE TABLET BY MOUTH EVERY DAY ^1R1 30 tablet 3 Active FLUoxetine (PROzac) 20 mg capsule TAKE ONE CAPSULE BY MOUTH EVERY DAY ^1R1 30 capsule Active losartan (COZAAR) 50 mg tablet TAKE ONE TABLET BY MOUTH EVERY DAY ^1R 30 tablet 5 025 Active glipiZIDE (GLUCOTROL) 10 mg tablet TAKE ONE TABLET BY MOUTH TWICE A DAY BEFORE MEALS ^1R1,1R4 60 tablet Active lidocaine (LIDODERM) 5 % patchIndications :Other diabetic neurological complication associated with type 2 diabetes mellitus (CMS/HCC) Apply topically 1 (one) time each day. Remove & discard patch within 12 hours or as directed by MD. 30 patch 1 Active triamcinolone (KENALOG) 0.1 % cream APPLY TO AFFECTED AREA(S) TWO TIMES A DAY (BULK) 60 g 3 Active pantoprazole (PROTONIX) 40 mg EC tablet Take 1 tablet (40 mg total) by mouth 1 (one) time each day. Do not crush, chew, or split. 30 each 025 2024 Active omeprazole (PriLOSEC) [address] capsule Take 1 capsule (20 mg total) by mouth 1 (one) time each day. 90 capsule 025 2025 Active methocarbamoL (ROBAXIN) 750 mg tablet Take 1 tablet (750 mg total) by mouth 4 (four) times a day for 5 days. 20 each Active sucralfate (CARAFATE) 100 mg/mL suspension Take 10 mL (1 g total) by mouth every 6 (six) hours. Before meals and at bedtime 1242 mL 025 Active HumaLOG KwikPen Insulin 100 unit/mL injection pen Inject 10 Units under the skin 3 (three) times a day before meals. 9 mL 025 Active Easy Touch Alcohol Prep Pads pads, medicated USE FOUR TIMES A DAY BEFORE INSULIN INJECTION AND TESTING BLOOD SUGAR (BULK) 100 each Active hydrOXYzine HCL (ATARAX) 25 mg tablet Take 1 tablet (25 mg total) by mouth 4 (four) times a day. 60 tablet Active docusate sodium (COLACE) 100 mg capsule Take 1 capsule (100 mg total) by mouth 1 (one) time each day. 30 capsule Active ascorbic acid (VITAMIN C) 1,000 mg tablet Take 1 tablet (1,000 mg total) by mouth 1 (one) time each day. 30 tablet 5 Active albuterol HFA (PROAIR HFA ; PROVENTIL HFA ; VENTOLIN HFA) 90 mcg/actuation inhaler Inhale 2 puffs by mouth every 6 (six) hours if needed for wheezing. 8.5 g 5 Active pilocarpine (Salagen, pilocarpine,) 5 mg tabletIndication s:Dry mouth Take 1 tablet (5 mg total) by mouth 2 (two) times a day. 60 each 025 2025 Active gabapentin (NEURONTIN) 800 mg tabletIndication s:Polyneuropathy Take 1 tablet (800 mg total) by mouth 2 (two) times a day. 60 each 025 2025 Active tirzepatide (Mounjaro) 12.5 mg/0.5 mL injectionIndicat ions:Diabetes mellitus type 2 with neurological manifestations (CMS/HCC) Inject 0.5 mL (12.5 mg total) under the skin every 7 (seven) days. 2 mL 2 025 Active diphenhydrAMINE (BenadryL) 25 mg capsuleIndicatio ns:Itch Take 1 capsule (25 mg total) by mouth every 6 (six) hours if needed for itching. 30 capsule 1 025 Active albuterol HFA (PROAIR HFA ; PROVENTIL HFA ; VENTOLIN HFA) 90 mcg/actuation inhaler INHALE TWO PUFFS BY MOUTH EVERY 6 HOURS NEEDED FOR WHEEZING OR FOR SHORTNESS OF BREATH - THIS IS A RESCUE MEDICATION; NOT TO EXCEED 12 INHALATIONS PER 24 HOURS (BULK) 024 2024 Discontinued alcohol swabs (Alcohol Prep Pads) pads, medicated USE FOUR TIMES A DAY BEFORE INSULIN INJECTION AND TESTING BLOOD SUGAR (BULK) 024 2024 Discontinued ascorbic acid (VITAMIN C) 1,000 mg tablet TAKE ONE TABLET BY MOUTH EVERY DAY ^1R2 024 2024 Discontinued hydrOXYzine HCL (ATARAX) 25 mg tablet TAKE ONE TABLET BY MOUTH EVERY 4 HOURS NEEDED FOR ITCHING (#32 IN VIAL) ^1R4 024 2024 Discontinued insulin lispro (HumaLOG KwikPen Insulin) 100 unit/mL injection pen INJECT 5 TO 10 UNITS UNDER THE SKIN THREE TIMES A DAY PER SLIDING SCALE (BULK) 024 2024 Discontinued docusate sodium (COLACE) 100 mg capsule TAKE ONE CAPSULE BY MOUTH TWICE A DAY (VIAL) 30 capsule 5 024 2024 Discontinued sucralfate (CARAFATE) 100 mg/mL suspension TAKE 10ML BY MOUTH FOUR TIMES A DAY BEFORE MEALS AND AT BEDTIME (BULK) 100 mL 2 025 2024 Discontinued( Reorder) cyclobenzaprine (FLEXERIL) 10 mg tablet TAKE ONE TABLET BY MOUTH THREE TIMES A DAY NEEDED FOR MUSCLE SPASMS (TRAYS) ^1R1,1R2,1R4 90 tablet 5 025 2024 Discontinued( Allergic response) tirzepatide (Mounjaro) 10 mg/0.5 mL injectionIndicat ions:Class 1 obesity due to excess calories with serious comorbidity and body mass index (BMI) of 34.0 to 34.9 in adult Inject 0.5 mL (10 mg total) under the skin every 7 (seven) days. 2 mL 1 025 2024 Discontinued( Dose adjustment) predniSONE (DELTASONE) 20 mg tablet Take 3 tabs (60mg) daily for 3 days, then take 2 tabs (40mg) daily for 3 days, then take 1 tab (20mg) daily for 3 days. 18 tablet 025 2024 omeprazole (PriLOSEC) [address] capsule Take 1 capsule (20 mg total) by mouth 1 (one) time each day. 90 capsule 3 025 2024 Discontinued( Reorder) sucralfate (CARAFATE) 100 mg/mL suspension Take 10 mL (1 g total) by mouth every 6 (six) hours. Before meals and at bedtime 100 mL 7 025 2024 Discontinued( Reorder) methylPREDNISolo ne (MEDROL DOSPAK) 4 mg tabletIndication s:Bronchitis Take as directed on package. 21 tablet 025 2024 Active Problems Problem Noted Date Diagnosed Date Abdominal pain 07/29/2024 Vertigo 01/31/2021 Hot flashes 11/17/2020 Pain of upper abdomen 11/17/2020 Palpitations 11/17/2020 Tubular adenoma 11/17/2020 Allergic conjunctivitis, bilateral 10/03/2020 Epistaxis 10/03/2020 Acute midline low back pain without sciatica Spondylosis of lumbar region without myelopathy or radiculopathy 06/15/2020 Severe obesity (BMI 35.0-39.9) with comorbidity 02/02/2019 Constipation 04/23/2018 TONY (obstructive sleep apnea) 03/25/2018 Overview (07/29/2024): [facility] Polysomnogram: Date 07/13/2020; Wt 217#; [...] Encounters Date Type Department Care Team Description 11/20/2024 Telephone Internal Medicine - [facility] [address] [facility] [address] [place] [address] Charo Chakraborty MD Medication Reaction (Itching - dry skin) 11/17/2024 10:45 AM EST Office Visit Internal Medicine - [facility] [address] [facility] [address] [place] [address] Lucía España NP Polyneuropathy (Primary Dx); Dry mouth; Diabetes mellitus type 2 with neurological manifestations ([facility]/HCC); Bronchitis; Itch 11/11/2024 Telephone Internal Medicine - [facility] [address] [facility] [address] [place] [address] Charo Chakraborty MD 11/04/2024 7:12 PM EST - 11/05/2024 1:00 PM EST Emergency [facility] Emergency [address] [place] [phone] Fortunato Fofana DO Garvin, Meredith Kate, MD Patel, Parth B, MD Chest pain, unspecified type (Primary Dx) Discharge Disposition: Home or Self Care 11/04/2024 Telephone Internal Medicine - [facility] [address] [facility] [address] [place] [address] Charo Chakraborty MD Pharmacy 10/23/2024 9:00 AM EST Office Visit Internal Medicine - [facility] [address] [facility] [address] [place] [address] Charo Chakraborty MD Mild intermittent asthma without complication (Primary Dx); Gastroesophageal reflux disease with esophagitis without hemorrhage 10/22/2024 1:15 PM EST Office Visit Bariatric Surgery - [facility] [address] [facility] [address] [place] [phone] Maira Zurita MD Class 1 obesity due to excess calories with serious comorbidity and body mass index (BMI) of 34.0 to 34.9 in adult (Primary Dx) 10/22/2024 10:42 AM EST - 10/22/2024 11:59 PM EST Hospital Encounter [facility] [address] [place] [phone] Encounter for screening mammogram for breast cancer Discharge Disposition: Home or Self Care 10/20/2024 Telephone Internal Medicine - [facility] [address] [place] [address] Charo Chakraborty MD prior auth 10/07/2024 10:30 AM EST Office Visit Bariatric Surgery - [facility] [address] [place] [phone] Ashlyn Marcus MD Ventral hernia without obstruction or gangrene (Primary Dx); Lipoma of torso; Obesity (BMI 30-39.9) 09/03/2024 12:00 PM EST Office Visit Internal Medicine - [facility] [address] [facility] [address] [place] [address] Charo Chakraborty MD Pain in both lower extremities (Primary Dx) from Last 3 Months Surgical History Surgery Date Site/Laterality Comments ANKLE SURGERY 2016 Right PROCEDURE: HISTORICAL ANKLE SURGERY; COMMENT: medial malleolar fracture SECTION PROCEDURE: HISTORICAL DELIVERY; COMMENT: x3 HYSTERECTOMY PROCEDURE: HISTORICAL HYSTERECTOMY HERNIA REPAIR PROCEDURE: HISTORICAL HERNIA REPAIR/ING COLONOSCOPY 05/24/2020 PROCEDURE: HISTORICAL COLONOSCOPY; COMMENT: tubular adenoma ESOPHAGOGASTRODUODENOSCOPY PROCEDURE: NE EGD TRANSORAL BIOPSY SINGLE/MULTIPLE; COMMENT: Performed in February 2021 during hospitalization Medical History Medical History Date Comments Asthma 02/18/2018 DX:Asthma Chronic obstructive pulmonar y disease (COPD) ([facility]) 02/18/2018 DX:Chronic obstructive pulmo nary disease (COPD) ([facility]) GERD (gastroesophageal reflux disease) 8 DX:GERD (gastroesophageal reflux disease) Allergic rhinitis 03/10/2018 DX:Allergic rh initis Anxiety 03/10/2018 DX:Anxiety Depression 03/10/2018 DX:Depression Diabetes mellitus type 2 wit h neurological manifestations ([facility]) 02/18/2018 DX:Diabetes jacob itus type 2 with neurological manifestations ([facility]) Hypertension 03/10/2018 DX:Hypertension Hypertriglyceridemia 03/10/2018 DX:Hypertri glyceridemia Insomnia 03/10/2018 DX:Insomnia Urinary incontinence 03/10/2018 DX:Urinary incontinence Venous insufficiency 03/10/2018 DX:Venous i nsufficiency Vitamin D deficiency 03/10/2018 DX:Vitamin D deficiency Diabetic peripheral neuropathy ([facility]) 016 DX:Diabetic peripheral neuropathy (HCC) Panic attack 04/08/2017 DX:Panic attack Osteoarthrosis 05/17/2015 [...] on file Sexual Orientation Not on file Obstetrics History Para Term AB IAB SAB Ectopic Multiple Livin g Live Births 3 Last Filed Vital Signs Vital Sign Reading Time Taken Comments Blood Pressure 120/70 11/17/2024 10:24 AM EST Pulse 131 11/17/2024 10:24 AM EST Temperature 37 ??C (98.6 ??F) 11/17/2024 10:24 AM EST Respiratory Rate 20 11/05/2024 9:28 AM EST Oxygen Saturation 98% 11/17/2024 10:24 AM EST Inhaled Oxygen Concentration - - Weight 89.9 kg (198 lb 3.2 oz) 11/17/2024 10:24 AM EST Height 162.6 cm (5' 4 ) 11/17/2024 10:24 AM EST Body Mass Index 34.02 11/17/2024 10:24 AM EST Plan of Treatment Upcoming Encounters Date Type Department Care Team (Late st Contact Info) Description 01/21/2025 1:00 PM EDT Office Visit Bariatric Surgery - [facility] [address] [facility] [address] [place] [phone] Maira Zurita MD [address] [facility] [address] [place] [address] 04/07/2025 9:00 AM EDT Office Visit Bariatric Surgery - [facility] [address] [place] [address] Ashlyn Marcus MD 175 [facility] [address] [place] [address] Health Maintenance Due Date Last Done Comments [...] 07/24/2024 Diabetes: Annual GFR (Glomerular Filtration Rate) 11/04/2025 11/04/2024, 07/24/2024 Hypertension/CHF/CAD Annual BMP Blood Test 11/04/2025 11/04/2024, 07/24/2024 Breast Cancer Screening 10/22/2026 10/22/19, 09/04/2023, 08/22/2022, Additional history exists Osteoporosis Screening (Bone Density Screening) 05/29/2033 05/29/2023 Pneumococcal Vaccine: 50+ Years Completed 07/24/2023, 03/31/2008 HIB Vaccines Aged [...] patient's age to complete this topic Meningococcal B Vacine Aged Out No lo nger eligible based on patient's age to complete [...] ECG 12-LEAD STAT 11/04/2024 8:01 PM EST CBC WITH AUTO DIFFERENTIAL STAT 11/04/2024 7:46 PM EST B-TYPE NATRIURETIC PEPTIDE STAT 11/04/2024 7:46 PM EST MAGNESIUM STAT 11/04/2024 7:46 PM EST LIPASE STAT 11/04/2024 7:46 PM EST COMPREHENSIVE METABOLIC PANEL STAT 11/04/2024 7:46 PM EST CBC AND DIFFERENTIAL STAT 11/04/2024 7:46 PM EST TROPONIN I HIGH SENSITIVITY STAT 11/04/2024 7:46 PM EST ECG 12-LEAD STAT 11/04/2024 5:13 PM EST ECG ANNOTATED 11/04/2024 ECG ANNOTATED 11/04/2024 ECG ANNOTATED 11/04/2024 EXTERNAL XRAY REPORT 10/30/2024 EXTERNAL XRAY REPORT 10/30/2024 MG MAMMO DIGITAL SCREENING W CURT BILAT Routine 10/22/2024 11:25 AM EST Encounter for screening mammogram for breast cancer LETTY DEXA AXIAL SKELETON Routine 05/29/2023 7:59 AM EDT Asymptomatic menopausal state from Last 3 Months or Most Recently Relevant to Health Maintenance Results * D-dimer, quantitative (11/05/2024 10:43 AM EST) D-Dimer, Quant (D-DU) <150 <=230 ng/mL DDU LAB COAGULATION METHOD 11/05/2024 11:21 AM EST [facility] Blood Venous blood specimen / Unknown Venipuncture / Unknown 11/05/2024 10:43 AM EST 11/05/2024 11:08 AM EST Narrative [facility] - 11/05/2024 11:21 AM EST D-Dimer <230 ng/mL (D-Dimer units) is the threshold for exclusion of DVT/PE. D-Dimer may be elevated in: Critically ill, severely infected, trauma patients, DIC, acute CVA, acute CT, unstable angina, AF, old age, , and smoking. D-Dimer may be decreased with: Initiation of heparin therapy and oral anticoagulants. us Bennie Valdez MD LAB BLOOD ORDERABLES Final Resu lt [facility] [address] [place] [address], * ECG 12 lead (11/05/2024 10:41 AM EST) Only the most recent of3 resultswithin the time period is included. Ventricular Rate ECG 108 BPM GEMUSE Atrial Rate 108 BPM GEMUSE P-R Interval 150 ms GEMUSE QRS Duration 80 ms GEMUSE Q-T Interval 346 ms GEMUSE QTc 463 ms GEMUSE P Wave [place] 40 degrees GEMUSE R [place] -29 degrees GEMUSE T [place] 15 degrees GEMUSE ECG Interpretation Sinus tachycardia Minimal voltage criteria for LVH, may be normal variant Anterolateral infarct , age undetermined Abnormal ECG When compared with ECG of 04-NOV-2024 20:01, (unconfirmed) Anterolateral infarct is now Present Confirmed by Sewtha HIGGINS, LEIF ([id number]) on 11/05/2024 3:16:36 PM GEMUSE 11/05/2024 10:4 1 AM EST 11/05/2024 3:16 PM EST Bennie Siva Valdez MD ECG ORDERABLES Final Result GEM[facility] * Respiratory virus panel molecular study (11/04/2024 11:43 PM EST) Pathologist [facility] Adenovirus Detection by PCR Not Detected Not Detected LAB MICROBIOLOGY METHOD 11/05/2024 1:23 AM [facility] Influenza A PCR Not Detected Not Detected LAB MICROBIOLOGY METHOD 11/05/2024 1:23 AM [facility] Influenza B PCR Not Detected Not Detected LAB MICROBIOLOGY METHOD 11/05/2024 1:23 AM [facility] Coronavirus 229E Not Detected Not Detected LAB MICROBIOLOGY METHOD 11/05/2024 1:23 AM [facility] Coronavirus HKU1 Not Detected Not Detected LAB MICROBIOLOGY METHOD 11/05/2024 1:23 AM [facility] Coronavirus OC43 Not Detected Not Detected LAB MICROBIOLOGY METHOD 11/05/2024 1:23 AM [facility] Coronavirus NL63 Not Detected Not Detected LAB MICROBIOLOGY METHOD 11/05/2024 1:23 AM [facility] Parainfluenza Virus 1 Not Detected Not Detected LAB MICROBIOLOGY METHOD 11/05/2024 1:23 AM [facility] Parainfluenza Virus 2 Not Detected Not Detected LAB MICROBIOLOGY METHOD 11/05/2024 1:23 AM [facility] Parainfluenza Virus 3 Not Detected Not Detected LAB MICROBIOLOGY METHOD 11/05/2024 1:23 AM [facility] Parainfluenza Virus 4 Not Detected Not Detected LAB MICROBIOLOGY METHOD 11/05/2024 1:23 AM [facility] RSV PCR Not Detected Not Detected LAB MICROBIOLOGY METHOD 11/05/2024 1:23 AM [facility] Human Metapneumovirus A and B Not Detected Not Detected LAB MICROBIOLOGY METHOD 11/05/2024 1:23 AM [facility] Rhinovirus/Entero virus Not Detected Not Detected LAB MICROBIOLOGY METHOD 11/05/2024 1:23 AM [facility] Bordetella pertussis Not Detected Not Detected LAB MICROBIOLOGY METHOD 11/05/2024 1:23 AM [facility] Bordetella parapertussis Not Detected Not Detected LAB MICROBIOLOGY METHOD 11/05/2024 1:23 AM [facility] Mycoplasma pneumo by PCR Not Detected Not Detected LAB MICROBIOLOGY METHOD 11/05/2024 1:23 AM [facility] Chlamydia pneumoniae Not Detected Not Detected LAB MICROBIOLOGY METHOD 11/05/2024 1:23 AM [facility] SARS COV-2 Not Detected Not Detected LAB MICROBIOLOGY METHOD 11/05/2024 1:23 AM [facility] Swab Both anterior nares / Unknown Non-blood Collection / Unknown 11/04/2024 11:43 PM EST 11/05/2024 12:30 AM [facility] - 11/05/2024 1:23 AM EST Testing was performed using the [employer] Respiratory Pathogen PCR Assay. All results must [...] that are below the limit of detection. Fortunato Fofana DO LAB MICROBIOLOGY - GENERAL ORD ERABLES Final Result Performing Organization Address [facility] Co de Phone Number [facility] [address] [place] [address], [place] [phone] * Troponin I high sensitivity (11/04/2024 10:24 PM EST) Only the most recent of2 resultswithin the time period is included. [facility] High Sensitivity Troponin I 4 <=54 ng/L LAB CHEMISTRY METHOD 11/04/2024 11:00 PM EST [facility] Blood Venous blood specimen / Unknown Venipuncture / Unknown 11/04/2024 10:24 PM EST 11/04/2024 10:32 PM EST Narrative [facility] - 11/04/2024 11:00 PM EST High levels of biotin in samples may falsely decrease hsTroponin values. ??Use caution when interpreting hsTroponin results in patients taking biotin who exhibit renal impairment (eGFR <60) or in patients taking more than 20 mg/day of biotin. us Fortunato Fofana DO LAB BLOOD ORDERABLES Final Res ult Performing Organization Address [facility] Co de Phone Number [facility] [address] [place] [address], [place] [phone] * XR Chest 2 Views (11/04/2024 9:57 [...] Signed Date: 11/05/2024 00:29 ET Workstation ID: [id number] Transcribed By: Self Edit Transcribed Date: 11/05/2024 [...] Signed Date: 11/05/2024 00:29 ET Workstation ID: [id number] Transcribed By: Self Edit Transcribed Date: 11/05/2024 00:28 ET Fortunato Fofana DO IMG XR PROCEDURES Final Result * CBC auto differential (11/04/2024 7:46 PM EST) WBC 10.2 4.8 - 10.8 K/mcL LAB HEMETOLOGY METHOD 11/04/2024 8:02 PM EST [facility] RBC 4.30 3.80 - 4.80 M/mcL LAB HEMETOLOGY METHOD 11/04/2024 8:02 PM EST [facility] Hemoglobin 12.6 11.5 - 16.0 g/dL LAB HEMETOLOGY METHOD 11/04/2024 8:02 PM [facility] Hematocrit 38.3 35.0 - 47.0 % LAB HEMETOLOGY METHOD 11/04/2024 8:02 PM [facility] MCV 90.1 79.0 - 98.0 FL LAB HEMETOLOGY METHOD 11/04/2024 8:02 PM [facility] MCH 29.6 27.0 - 32.0 pcg LAB HEMETOLOGY METHOD 11/04/2024 8:02 PM [facility] MCHC 32.9 32.0 - 37.0 g/dL LAB HEMETOLOGY METHOD 11/04/2024 8:02 PM [facility] RDW 12.9 11.0 - 15.0 % LAB HEMETOLOGY METHOD 11/04/2024 8:02 PM [facility] Platelets 207 130 - 400 K/mcL LAB HEMETOLOGY METHOD 11/04/2024 8:02 PM [facility] MPV 10.6 7.0 - 11.0 FL LAB HEMETOLOGY METHOD 11/04/2024 8:02 PM [facility] NRBC 0.0 <1.0 % LAB HEMETOLOGY METHOD 11/04/2024 8:02 PM [facility] NRBC Absolute 0.00 <0.10 K/mcL LAB HEMETOLOGY METHOD 11/04/2024 8:02 PM [facility] Neutrophils Relative 67.9 % LAB HEMETOLOGY METHOD 11/04/2024 8:02 PM [facility] Lymphocytes Relative 24.2 % LAB HEMETOLOGY METHOD 11/04/2024 8:02 PM [facility] Monocytes Relative 7.1 % LAB HEMETOLOGY METHOD 11/04/2024 8:02 PM [facility] Eosinophils Relative 0.2 % LAB HEMETOLOGY METHOD 11/04/2024 8:02 PM [facility] Basophils Relative 0.3 % LAB HEMETOLOGY METHOD 11/04/2024 8:02 PM [facility] Immature Granulocytes Relative 0.3 % LAB HEMETOLOGY METHOD 11/04/2024 8:02 PM [facility] Neutrophils Absolute 6.90 1.50 - 7.00 K/mcL LAB HEMETOLOGY METHOD 11/04/2024 8:02 PM [facility] Lymphocytes Absolute 2.46 1.00 - 5.00 K/mcL LAB HEMETOLOGY METHOD 11/04/2024 8:02 PM [facility] Monocytes Absolute 0.72 0.20 - 1.00 K/mcL LAB HEMETOLOGY METHOD 11/04/2024 8:02 PM [facility] Eosinophils Absolute 0.02 0.00 - 0.50 K/mcL LAB HEMETOLOGY METHOD 11/04/2024 8:02 PM [facility] Basophils Absolute 0.03 0.00 - 0.20 K/mcL LAB HEMETOLOGY METHOD 11/04/2024 8:02 PM [facility] Immature Granulocytes Absolute 0.03 0.00 - 0.03 K/mcL LAB HEMETOLOGY METHOD 11/04/2024 8:02 PM [facility] Blood Venous blood specimen / Unknown Venipuncture / Unknown 11/04/2024 7:46 PM EST 11/04/2024 7:54 PM EST us Fortunato Fofana DO LAB BLOOD ORDERABLES Final Res ult [facility] [address] [place] [address], * B-type natriuretic peptide (11/04/2024 7:46 PM EST) BNP 15 <=100 pcg/mL LAB CHEMISTRY METHOD 11/04/2024 8:30 PM EST [facility] Blood Venous blood specimen / Unknown Venipuncture / Unknown 11/04/2024 7:46 PM EST 11/04/2024 7:54 PM EST us Fortunato Fofana DO LAB BLOOD ORDERABLES Final Res ult [facility] [address] [place] [address], [place] [phone] * Magnesium (11/04/2024 7:46 PM EST) Magnesium 2.2 1.9 - 2.6 mg/dL LAB CHEMISTRY METHOD 11/04/2024 8:32 PM EST [facility] Blood Venous blood specimen / Unknown Venipuncture / Unknown 11/04/2024 7:46 PM EST 11/04/2024 7:54 PM EST us Fortunato Fofana DO LAB BLOOD ORDERABLES Final Res ult Performing Organization Address [facility]/ZIP Co de Phone Number [facility] [address] [place] [address], [place] [phone] * Lipase (11/04/2024 7:46 PM EST) Lipase 63 13 - 75 unit/L LAB CHEMISTRY METHOD 11/04/2024 8:29 PM EST [facility] Blood Venous blood specimen / Unknown Venipuncture / Unknown 11/04/2024 7:46 PM EST 11/04/2024 7:54 PM EST us Fortunato Fofana DO LAB BLOOD ORDERABLES Final Res ult Performing Organization Address [facility]/ZIP Co de Phone Number [facility] [address] [place] [address], [place] [phone] * (ABNORMAL) Comprehensive metabolic panel (11/04/2024 7:46 PM EST) Sodium 138 133 - 145 mmol/L LAB CHEMISTRY METHOD 11/04/2024 8:32 PM [facility] Potassium 3.6 3.5 - 5.5 mmol/L LAB CHEMISTRY METHOD 11/04/2024 8:32 PM [facility] Chloride 105 96 - 110 mmol/L LAB CHEMISTRY METHOD 11/04/2024 8:32 PM [facility] CO2 27 21 - 32 mmol/L LAB CHEMISTRY METHOD 11/04/2024 8:32 PM [facility] Anion Gap 6 3 - 11 LAB CHEMISTRY METHOD 11/04/2024 8:32 PM [facility] Glucose 234(H) 70 - 100 mg/dL LAB CHEMISTRY METHOD 11/04/2024 8:32 PM [facility] BUN 20 5 - 25 mg/dL LAB CHEMISTRY METHOD 11/04/2024 8:32 PM [facility] Creatinine 0.68 0.50 - 1.10 mg/dL LAB CHEMISTRY METHOD 11/04/2024 8:32 PM [facility] eGFR 94 >=60 mL/min/1. 73m2 LAB CHEMISTRY METHOD 11/04/2024 8:32 PM [facility] Comment:Calculation based on the??Chronic Kidney Disease Epidemiology Collaboration (CKD-EPI) equation refit??without adjustment for race. BUN/Creatinine Ratio 29.4 LAB CHEMISTRY METHOD 11/04/2024 8:32 PM [facility] Calcium 9.1 8.5 - 10.5 mg/dL LAB CHEMISTRY METHOD 11/04/2024 8:32 PM [facility] AST (SGOT) 12 10 - 42 unit/L LAB CHEMISTRY METHOD 11/04/2024 8:32 PM [facility] ALT (SGPT) 27 10 - 60 unit/L LAB CHEMISTRY METHOD 11/04/2024 8:32 PM EST [facility] Alkaline Phosphatase 102 42 - 121 unit/L LAB CHEMISTRY METHOD 11/04/2024 8:32 PM EST [facility] Total Protein 6.6 6.0 - 8.0 g/dL LAB CHEMISTRY METHOD 11/04/2024 8:32 PM EST [facility] Albumin 3.4 3.2 - 5.0 g/dL LAB CHEMISTRY METHOD 11/04/2024 8:32 PM [facility] Total Bilirubin 0.2 0.0 - 1.4 mg/dL LAB CHEMISTRY METHOD 11/04/2024 8:32 PM [facility] Blood Venous blood specimen / Unknown Venipuncture / Unknown 11/04/2024 7:46 PM EST 11/04/2024 7:54 PM EST Fortunato Fofana DO LAB BLOOD ORDERABLES Final Res ult [facility] [address] [place] [address], [place] [phone] * ECG-Annotated (11/04/2024) Only the most recent of3 resultswithin the time period is included. Provider Onbase MD ECG ORDERABLES Final Result * External Xray Report (10/30/2024) Only the most recent of2 resultswithin the time period is included. Anatomical Region Laterality Modality Radiographic Kandice ging Provider [facility] IMG XR PROCEDURES Final Result * MG Mammo Digital Screening w Curt [...] Signed Date: 10/22/2024 13:08 ET Workstation ID: [id number] Transcribed By: Self Edit Transcribed Date: 10/22/2024 [...] Signed Date: 10/22/2024 13:08 ET Workstation ID: [id number] Transcribed By: Self Edit Transcribed Date: 10/22/2024 13:02 ET us Self Referral Sppl IMG BI PROCEDURES Final Resul t * LETTY DEXA AXIAL SKELETON (05/29/2023 7:59 AM EDT) Anatomical Region Laterality Modality Mammography 05/28/2023 12:5 1 PM EDT Narrative 05/29/2023 7:[address] [facility] Diagnostic Imaging Department [address] [place], [place] [id number] Patient: ??ROLANDO VARGAS ?/Age/Sex: 1955 - Unit#: ??[id number] ? Location/Status: ??SPDIMAM/REG CLI ? Mnemonic/Ordering Site: ??LETTYDEXAAX/SPMAM Ordering Physician: ??YINKA STONE CNM Letty Dexa Axial Skeleton - [...] probability of hip fracture of 0.8%. Code 56571 Dictating Physician: ??WALDEMAR HANEY MD Electronically Signed by: ??WALDEMAR HANEY MD Dic Date/Time: ??05/29/23 0758 Sign date/Time: ??05/29/23 0759 Procedure Note Waldemar Haney MD - 11/05/2023 [facility] Diagnostic Imaging Department [address] [place], [place] [id number] Patient: ROLANDO VARGAS Mily/Age/Sex: 1955 - 67 - F Unit#: [id number] Location/Status: SPDIMAM/REG CLI Mnemonic/Ordering Site: MAMDEXAAX/SPMAM Ordering Physician: YINKA STONE CNM Letty Dexa [...] density of the femurs bilaterally is 1.141 gm/la4khjnm is 113% of that of young normals [...] probability of hip fracture of 0.8%. 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
--- OUTSIDE RECORDS SUMMARY | 2024-11-30 13:21 | XMS_ITS ---
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
--- OUTSIDE RECORDS SUMMARY | 2024-11-30 13:21 | XMS_ITS | Patient Health Record ---
Author Organization [facility] Address [address] [place] [address] Care Team Providers Care Management Assistant Name Role Phone JAXON AGUERO Unavailable [phone] REASON FOR REFERRAL No Information Encounters Encounter Location Date Provider Diagnosis [facility] [address] [address] 01/01/[address] [facility] [facility] [address] [address] 02/03/2024 JAXON AGUERO [facility] [address] [place] [address] 02/11/2024 JAXON AGUERO ASSESSMENTS Encounter Date Diagnosis Assessment Notes [...] minimum of 6 months The most recent [place] [employer] of clinical endocrinologists and [place] [employer] of endocrinology guidelines recommend patients who [...] track activity level. Consider using apps like [employer], [employer], lose it, stick as needed for self-monitoring and weight management. Consider group exercises. Consider hiring a personal care service provider. Regular exercise is keene to sustainable health [...] counseling and psychiatry and Dr Oliveira at [facility]. We would like to cover regular topics [...] software and direct typing Please excuse inadvertent desk reporter or typing errors, or uncorrected word substitutions Although every attempt has been made by the provider to proofread this document, occasional misspellings and typographical errors may still be present Due to the previous pandemic, and the use of personal protective equipment (PPE) This may decrease voice recognition accuracy Inadvertent desk reporter errors may occur 02/03/2024 Total time spent today was 60 [...] minimum of 6 months The most recent [place] [employer] of clinical endocrinologists and [place] [employer] of endocrinology guidelines recommend patients who [...] track activity level. Consider using apps like [employer], [employer], lose it, stick as needed for self-monitoring and weight management. Consider group exercises. Consider hiring a personal care service provider. Regular exercise is keene to sustainable health [...] counseling and psychiatry and Dr Oliveira at [facility]. We would like to cover regular topics [...] software and direct typing Please excuse inadvertent desk reporter or typing errors, or uncorrected word substitutions Although every attempt has been made by the provider to proofread this document, occasional misspellings and typographical errors may still be present Due to the previous pandemic, and the use of personal protective equipment (PPE) This may decrease voice recognition accuracy Inadvertent desk reporter errors may occur PLAN OF TREATMENT No Information Insurance Providers Payer Name Payer Address Payer Phone Subscriber Number Group Number Insured Name Patient Relationship to Insured Coverage Start Date Coverage End Date [employer]Donna or Options [address] [place] [id number] Jazlyn Vargas Self - patient is the insured 3
== END 2024-11-30 13:07 | disposition home or self-care (01) ==
PROVIDERS: PCP Internal Medicine; Visit Provider Physician Assistant Medical
DX: G43.019 Migraine without aura, intractable, without status migrainosus (principal); G47.33 Obstructive sleep apnea (adult) (pediatric); R53.83 Other fatigue
CPT/HCPCS: 99214; G2211

== ENCOUNTER → 2024-11-30 11:11 | Outpatient (BNVA) | payer OTHER, SELFPAY | PROVIDERS: PCP Internal Medicine; Visit Provider Physician Assistant Medical | DX: G43.019 Migraine without aura, intractable, without status migrainosus (principal); G47.33 Obstructive sleep apnea (adult) (pediatric); R53.83 Other fatigue | CPT/HCPCS: 99212 ==

== ENCOUNTER 2024-12-07 11:10 | Outpatient (AMB) | payer OTHER, SELFPAY ==
--- NOTE | 2024-12-07 11:21 | A.OFFVIS_ITS ---
Vital Signs 12/07/24 11:22 Height 5 ft 4 in Weight 200 lb 9.93 oz BMI 34.4 BP 128/70 Blood Pressure Location Rt brachial Position Sitting Pulse 108 H Pulse Source Pulse Oximeter Pulse Oximetry (%) 99 Oxygen Delivery Method Room Air Intake Visit Reasons: Obstructive sleep apnea Allergies naproxen Allergy (Severe, Verified 11/30/24 11:53) Hives acetaminophen [From Percocet] Adverse Reaction (Severe, Verified 11/30/24 11:53) Hallucinations aspirin Adverse Reaction (Severe, Verified 11/30/24 11:53) Hives codeine Adverse Reaction (Severe, Verified 11/30/24 11:53) Itching ibuprofen [From Motrin IB] Adverse Reaction (Severe, Verified 11/30/24 11:53) Hives Iodinated Contrast Media Adverse Reaction (Severe, Verified 11/30/24 11:53) Hypertension mepolizumab [From Nucala] Adverse Reaction (Severe, Verified 11/30/24 11:53) Itching metformin Adverse Reaction (Severe, Verified 11/30/24 11:53) Difficulty Breathing montelukast [From Singulair] Adverse Reaction (Severe, Verified 11/30/24 11:53) Anxiety morphine Adverse Reaction (Severe, Verified 11/30/24 11:53) Hallucinations omalizumab [From Xolair] Adverse Reaction (Severe, Verified 11/30/24 11:53) Anaphylaxis oxycodone Adverse Reaction (Severe, Verified 11/30/24 11:53) Hallucinations pneumococcal vaccine Adverse Reaction (Severe, Verified 11/30/24 11:53) Hives prednisone Adverse Reaction (Severe, Verified 11/30/24 11:53) Itching tramadol Adverse Reaction (Severe, Verified 11/30/24 11:53) Hives accolate Adverse Reaction (Severe, Uncoded 10/30/24 11:11) Chest Pain PCN Adverse Reaction (Severe, Uncoded 10/30/24 11:11) Hives HPI Comments Details: The patient is a 69-year-old woman with a known history of asthma in addition to obstructive sleep apnea. She has been noticing worsening respiratory symptoms. She was placed on singular as a steroid sparing agent. However, she developed symptoms of depression and had to come off. She is continued on Trelegy which appears to be helping her. The patient had been on Nucala in the past for severe asthma. However, she developed an allergic reaction as well and had to stop it. She has not tried any other biologic medications after that. The patient has not required any prednisone. She also has diabetes and would like to hold off on any significant steroids that can worsen her diabetes control. The patient does have underlying allergies at this point will go ahead and we check her allergies to further assess her potential triggers in order to control her asthma symptoms. The patient also has underlying sleep apnea. She has been having difficulties tolerating the CPAP therapy. Therefore she has not been using it regularly the patient also has a hard time sleeping. She has been using gabapentin with some partial improvement of her symptoms. She does complaint of restless leg. 10/23/2023 the patient is here for a pulmonary follow-up visit. Apparently she was sick back close to the holidays. She had a hard time getting in to be seen. Therefore she stayed home and gave herself breathing treatments throughout the day and finally started feeling better after few days. She was concerned though that her breathing was significantly effective. The patient did not take any prednisone and she does not like to take prednisone because it causes her to have pleuritis and also elevated blood sugars. She is also struggling with her sleep. She does have a CPAP in the CPAP therapy has been very affecting beneficial for her in the past but now she does not get supplies from the [employer]. Her machine now is older than 5 years therefore will see about getting her new machine them in more effective and then that weight getting her situated with the [employer]. Her [place] score is elevated at 10 over 24. She does have cardiovascular risk factors are treating his sleep apnea is important. The patient likely will require repeat home sleep study. Will reach out to her [employer] company to see if they need any other additional information in order to get a replacement machine at this time. In the meantime for her respiratory symptoms she does have increased wheezing therefore will send him medications with the pharmacy and will optimize her Trelegy by switching over to the 200 mcg dose for a month and then hopefully we can titrate her back down to the 100 mcg those. 03/27/2024 the patient is here for sick visit. She has been sick for about 3-4 days. She started developing increased chest tightness and cough. She is also felt weak. She felt some chills. She did call the office we do not have any availability we recommended she go to urgent care. She called again we sent her some medications in the meantime. We made an appointment for today. She has been feeling a little better since she started the Medrol Evelio and she also started the antibiotics, azithromycin. She is still coughing up significant amount of mucus. Greenish in color. She did have a sample that was sent. 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 She was treated with Bactrim for about 4 weeks. She tolerated the treatment well. Will go ahead and send also modified acid-fast for Nocardia. The patient is having significant wheezing on examination. We did provide her with 2 DuoNeb treatments and also that swab for RSV, flu and COVID-19. The result came back negative. She also had a chest x-ray which I personally reviewed which demonstrated some slight atelectasis to the left base suggesting bronchitis. Will go ahead and treat her for early pneumonia at this time. 04/09/2024 the patient is here for a pulmonary follow-up visit. She has now completed the prednisone. Her sugars were significantly elevated up to 500 while on the prednisone. The patient did call EMS but by the time they got there she did take insulin and had improved. She still having hard time with breathing. Significant shortness of breath even at rest. Moderate severity. She has been using the nebulizer every 3-4 hours. She continues on the Trelegy inhaler. Unfortunately exam she is still having significant wheezing and rhonch i. She did complete 2 courses of antibiotics. Her chest x-ray was fairly clear except for some areas of atelectasis. Will go ahead and request blood work specially because heart rate significantly elevated at 125. She will go ahead blood work including a D-dimer to make sure she does not have a risk of thromboembolic disease. She will need additional prednisone. Will try to split into [address] her sugars do not go as high. She will have to take insulin the meantime to maintain her sugars within reason. If her symptoms worsen she may need to go to the ER otherwise follow-up in 3-4 weeks. 04/20/2024 the patient is here for a follow-up visit. She had a hard few months. Her asthma has been uncontrolled. Unfortunately she also has uncontrolled diabetes making it difficult to give her prednisone. We tried maximizing her respiratory therapy by adding budesonide. She has been in the Trelegy. Still having significant wheezing. Also chest congestion removed some greenish phlegm out of her lungs. Will go ahead and try to further adjust her in respiratory therapy by placing her on Brovana in continue the budesonide and then adding Incruse and moving the Trelegy. Hopefully with the nebulized therapy providing further bronchodilation deeper into the airways. In addition to that the patient will be starting on theophylline. She understands the adverse effects of theophylline. Specialist stimulant. She is going to monitor closely any symptoms. She can not tolerated she is going to back off and call me. The patient also will have theophylline levels checked in the coming weeks. I am hopeful though that with the theophylline she will start feeling better. She also continues on Dupixent injections every 2 weeks. If the patient is not getting any better very aggressive respiratory regimen will talk about considering bronchoscopy to rule out deep respiratory infections. And if no infections are warranted then at that point consider changing her biologic to test prior. Will reassess in 2-3 weeks. 05/07/2024 the patient is here for pulmonary follow-up visit. Overall she is doing better from a respiratory status. She did complete the prednisone which is reassuring. The patient has been on the nebulized therapy with some improvement. She did not pick remover the theophylline as it was not the pharmacy. At this point since her respiratory status is better will hold off on the as well. She does have difficulty sleeping. She is having significant restlessness. She is already taking gabapentin. I will give her higher dose at nighttime so she can sleep a little better. She is having some neuropathy issues. She will follow-up with her primary care doctor regarding that. In the meantime she continues with the Dupixent injections. Will continue to see her progress. If the patient continues to have underlying respiratory issues will consider switching her over to Tezspire. Also, we can always consider theophylline the future. 08/12/2024 the patient is here for a pulmonary follow-up visit. Overall she is doing better from a respiratory status. Unfortunately though when she feels better she does not use her nebulized therapy. Therefore she needs to continue to use her maintenance inhalers. Will go back to Trelegy that she tolerated before and will be optimizing respiratory therapy. This is because she still has wheezing on examination. The patient also continues on the Dupixent injections which appeared to be affecting beneficial. In no need to change him at this time. She has multiple complaints though she has difficulty sleeping because of neuropathy and restless leg. She is having blood work done add additional blood work to her testing. The patient is having hard time sleeping. She is willing to try Ambien as needed to see if this provides her more restful sleep in therefore she is not so aware of the issues. She continues on the gabapentin at nighttime as well for neuropathy. Will follow-up in about 4 months. If she has any issues prior to that she will call for an earlier assessment. 10/30/2024 the patient is here for a pulmonary follow-up visit. Overall the patient had been doing well until about a month ago when she started developing worsening respiratory symptoms. She went to an urgent care was having a course of azithromycin. Then she went to her primary care doctor that give her some prednisone and also another course of azithromycin. She is not significantly better. She still complains of cough chest tightness and wheezing. She has not had a chest x-ray she will have 1 today. In the meantime will start on doxycycline. She still has wheezing but she has been off the budesonide nebs. Therefore she understands that she needs to stay on this medication to minimize the need for prednisone. She got weaned off prednisone start the budesonide this time and continue other respiratory regimen. If the x-ray demonstrates any evidence of any airspace disease I will call her to add an additional antibiotic. Currently she is on Dupixent. I do believe that she may be a good candidate for Tezspire if she continues to be symptomatic. She does feel like Dupixent has been helping though. Therefore will continue that for now. 12/07/2024 the patient is here for a pulmonary follow-up visit. Overall doing well. Although still having some wheezing. She has not been using the Trelegy because it causes hoarseness. She has been using Incruse in the meantime. Although with increased wheezing she needs to have optimization of her inhalers. I will go ahead and send her breztri to the pharmacy with the hopes that with a spacer it does not cause significant hoarseness. She also has been using her CPAP every night. Although sometimes she does not lost the 4 hours because the machine starts leaking from the sizing the sound bothers her. Explained to her that she needs to use it 4 hours a night. She is going to do a better effort. In the meantime I did provide her with an AirTouch F20 medium mask this seems to be doing a little better and therefore she does not have to put it so tight and her phase to be able to get a good seal. Seems like it is going to work well for her. Will go ahead and request the same mask from her [employer] company. She continues to Dupixent seems to be helping her. Will follow-up in about 3-4 months. If she has any issues prior to that she will call for an earlier assessment. [facility] Medical History Tachycardia Osteoarthritis Diabetic peripheral neuropathy Diabetes GERD (gastroesophageal reflux disease) Venous insufficiency Vitamin D deficiency Urinary incontinence Insomnia Hypertriglyceridemia HTN (hypertension) Anxiety Depression Lumbar spondylosis Tubular adenoma Dyspnea Chronic restrictive lung disease Asthma TONY (obstructive sleep apnea) Surgical History History of hernia repair H/O: hysterectomy Hx of cholecystectomy History of section Hx of appendectomy History of ankle surgery Family History Father CHF (congestive heart failure) Mother CHF (congestive heart failure) Asthma Brother Asthma Social History Alcohol intake: never Patient Tobacco Use Status: Never used Tobacco Review of Systems Const Reports difficulty sleeping and Reports fatigue Eyes Denies change in vision ENT Denies change in voice, Reports nasal congestion and Reports nasal discharge Card Denies chest pain and Reports dyspnea on exertion Resp Denies chest congestion, Reports cough, Reports dyspnea on exertion and Reports wheezing GI Reports no additional complaints Musc Reports no additional complaints and Reports tingling Skin/Breast Denies rash Neuro Reports no additional complaints, Reports restless legs, Reports tingling and Reports paresthesias Endo Reports fatigue Fernando/Lymph Denies easy bleeding Aller/Immun Reports wheezing Physical Exam Vital Signs: Last Vital Signs Pulse 108 H 12/07/24 11:22 BP 128/70 12/07/24 11:22 Pulse Ox 99 12/07/24 11:22 Oxygen Delivery Method Room Air 12/07/24 11:22 BMI result Body Mass Index 34.4 Const General: comfortable HEENT Head: Yes normal to inspection Eyes General: appearance normal, both eyes and all related structures Neck Neck: Yes supple Chest Chest palpation & inspection: normal inspection of the chest Resp Effort & Inspection: normal respiratory effort Auscultation: no wheezes and diminished lung sounds Cardio Rate: regular rate Rhythm: regular rhythm Heart sounds: S1 normal heart sound present and S2 normal heart sound present GI Inspection: Yes normal to inspection Extrem General: Yes no clubbing, cyanosis or edema Assessment & Plan Assessment & Plan (1) Asthma: Code(s): J45.909 - Unspecified asthma, uncomplicated Category: Medical Qualifiers: Asthma complication type: uncomplicated Asthma persistence: persistent Asthma severity: severe Qualified Code(s): J45.50 - Severe persistent asthma, uncomplicated (2) Cough: Code(s): R05.9 - Cough, unspecified Category: Medical Qualifiers: Cough type: subacute Qualified Code(s): R05.2 - Subacute cough (3) TONY (obstructive sleep apnea): Code(s): G47.33 - Obstructive sleep apnea (adult) (pediatric) Category: Medical (4) Insomnia: Code(s): G47.00 - Insomnia, unspecified Category: Medical Qualifiers: Insomnia type: primary Qualified Code(s): F51.01 - Primary insomnia (5) Dyspnea: Code(s): R06.00 - Dyspnea, unspecified Category: Medical Qualifiers: Dyspnea type: dyspnea on exertion Qualified Code(s): R06.09 - Other forms of dyspnea (6) Fatigue: Code(s): R53.83 - Other fatigue Category: Medical Qualifiers: Fatigue type: unspecified Qualified Code(s): R53.83 - Other fatigue Plan continue Budesonide BID stopped Brovana stopped Trelegy daily start Breztri with spacer continue Dupixent, consider Teazsipre EpiPen available MEMO as needed continue Zyrtec gabapentin at night 600-900mg avoid singular secondary to depressive symptoms APAP with supplies. Adjusted APAP 5-12, Will trial F20 airtouch foam Home PSG to address TONY and reactivation F/U 3-4 months Medications: New ghkipjprdx-qiytctmw-ddcalmbiuc 160-9-4.8 mcg/actuation (Breztri Aerosphere) 2 inhalations inhalation BID 10.7 grams 11RF inhalational spacing device (Aerochamber MV spacer) As directed 1 ea 0RF Refilled budesonide 0.5 mg (2 mL) inhalation BID 120 mL 11RF 30 days J44.9 - Chronic obstructive pulmonary disease, unspecified Discontinued arformoterol (Brovana) Discontinued Reason: Duplicate 2 mL inhalation Q12H 30 days 120 mL 11RF J44.9 - Chronic obstructive pulmonary disease, unspecified Coding Level of Care Code Est Pt Level 4 (36757) Complex EM visit Add On G2211 Diagnoses Severe persistent asthma without complication J45.50 Asthma complication type: uncomplicated Asthma persistence: persistent Asthma severity: severe Subacute cough R05.2 Cough type: subacute TONY (obstructive sleep apnea) G47.33 Primary insomnia F51.01 Insomnia type: primary Dyspnea on exertion R06.09 Dyspnea type: dyspnea on exertion Fatigue, unspecified type R53.83 Fatigue type: unspecified Time Spent (min) 17
[2024-12-07 11:22] VITALS: BP 128/70; PULSE 108; O2SAT 99; BMI 34.4
--- OUTSIDE RECORDS SUMMARY | 2024-12-07 12:43 | XMS_ITS ---
Author Organization [facility] Address [address] [place] [address] Care Team Providers Care Perinatal Social Worker Name Role Phone JAXON AGUERO Unavailable [phone] Encounters Encounter Location Date Provider Diagnosis [facility] [address] [address] 02/03/2024 JAXONJAKI AGUERO ASSESSMENTS Encounter Date Diagnosis [...] minimum of 6 months The most recent [place] [employer] of clinical endocrinologists and [place] [employer] of [employer]ocrin[employer] guidelines recommend patients who [...] reading books called The Food Rules by Aelx Horton and Eat Fat Get Lean by [...] track activity level. Consider using apps like Coridon, Hammer & Chiselpal, lose it, stick as needed for self-monitoring and weight management. Consider group exercises. Consider hiring a personal vehicle advisor. Regular exercise is keene to sustainable [...] counseling and psychiatry and Dr Oliveira at [facility]. We would like to cover regular topics [...] software and direct typing Please excuse inadvertent university relations recruiter or typing errors, or uncorrected word substitutions Although every attempt has been made by the provider to proofread this document, occasional misspellings and typographical errors may still be present Due to the previous pandemic, and the use of personal protective equipment (PPE) This may decrease voice recognition accuracy Inadvertent university relations recruiter errors may occur PLAN OF TREATMENT No Information Progress Notes * Jazlyn VARGASDOB: 5 (69 yo F)Acc No.[id number]:02/03/2024 Patient:??Jazlyn VARGAS Provider:??JAXON AGUERO NP :[id number]?Age:68 Y?Sex:Fe male Date:02/03/2024 Address:[address] [place], [place] [id number] Subjective: * Chief Complaints: * ? * [...] ?Lowest weight: lbs ?Goal weight: lbs ?TONY screening/[facility]/[place], * ?Metabolic workup:* ?Thyroid? No recent screening [...] minimum of 6 months The most recent [place] [employer] of clinical endocrinologists and [place] [employer] of endocrin[employer] guidelines recommend patients who [...] track activity level. Consider using apps like Coridon, myfitnesspal, lose it, stick as needed for self-monitoring and weight management. Consider group exercises. Consider hiring a personal vehicle advisor. Regular exercise is keene to sustainable [...] counseling and psychiatry and Dr Oliveira at [facility]. We would like to cover regular topics [...] software and direct typing Please excuse inadvertent university relations recruiter or typing errors, or uncorrected word substitutions Although every attempt has been made by the provider to proofread this document, occasional misspellings and typographical errors may still be present Due to the previous pandemic, and the use of personal protective equipment (PPE) This may decrease voice recognition accuracy Inadvertent university relations recruiter errors may occur. Plan: * Treatment: * Procedure Codes:??59919 NO S HOW OFFICE VISIT * Images: Billing Information: * Visit Code:?? * Procedure Codes:?? 34366 NO SHOW OFFICE VISIT. * Sign off [...] Lowest weight: lbs Goal weight: lbs TONY screening/[facility]/[place], * Metabolic workup:* Thyroid? No recent screening [...]
--- OUTSIDE RECORDS SUMMARY | 2024-12-07 12:43 | XMS_ITS | Encounter Summary ---
Author Organization [facility] Address [address] [place] [address] Care Team Providers Care Interactive Media Specialist Name Role Phone Charo Chakraborty MD Primary Care Provider [phone] Reason for Visit * Reason Comments Follow-up Encounter Details Date Type Department Care Team (Latest Contact Info) Description 11/17/2024 10:45 AM EST Office Visit Internal Medicine - [place] 175 [facility] [address] [place] [phone] Lucía España NP 175 [facility] [address] [place] [address] Polyneuropathy (Primary Dx); Dry mouth; Diabetes mellitus [...] this encounter Progress Notes * Lucía España, DB2 DBA - 11/17/2024 10:45 AM EST CHIEF COMPLAINT: Follow-up IDENTIFIER: Jazlyn Vargas is a 69 y.o. old female. HPI: - Jazlyn is a 69-year-old female who presents today for an ER follow-up. Accompanied by her son to help interpret Chinese. - Was at the ER for chest [...] Asthma 02/18/2018 Chronic obstructive pulmonary disease (COPD) ([facility]) 02/18/2018 Diabetes mellitus type 2 with neurological manifestations ([facility]) 02/18/2018 Panic attack 04/08/2017 Osteoarthrosis 05/17/2015 Past Surgical History: Procedure Laterality Date ANKLE SURGERY Right 2017 PROCEDURE: HISTORICAL ANKLE SURGERY; COMMENT: medial malleolar fracture SECTION PROCEDURE: HISTORICAL DELIVERY; COMMENT: x3 COLONOSCOPY 05/24/2020 PROCEDURE: HISTORICAL COLONOSCOPY; COMMENT: tubular adenoma ESOPHAGOGASTRODUODENOSCOPY PROCEDURE: NC EGD TRANSORAL BIOPSY SINGLE/MULTIPLE; COMMENT: Performed in [...] (BULK) 100 each 11 blood sugar diagnostic (Hackermeteruch Verio test strips) test strip USE DAILY [...] spray Administer 2 sprays into affected nostril(s). cehfylwosgl-brviyushtcer-jqwlzkklgb (Trelegy Ellipta) 100-62.5-25 mcg inhaler Inhale 1 [...] QTc 11/04/2024 462 ms Final P Wave Vancourt 11/04/2024 45 degrees Final R Vancourt 11/04/2024 -26 degrees Final T Vancourt 11/04/2024 26 degrees Final ECG Interpretation 11/04/2024 [...] QTc 11/04/2024 465 ms Final P Wave Vancourt 11/04/2024 45 degrees Final R Vancourt 11/04/2024 -30 degrees Final T Vancourt 11/04/2024 23 degrees Final ECG Interpretation 11/04/2024 [...] QTc 11/05/2024 463 ms Final P Wave Vancourt 11/05/2024 40 degrees Final R Vancourt 11/05/2024 -29 degrees Final T Vancourt 11/05/2024 15 degrees Final ECG Interpretation 11/05/2024 [...] 1:00 PM EDT Office Visit Bariatric Surgery [address] [phone] Maira Zurita MD [address] [address] 04/07/2025 9:00 AM EDT Office Visit Bariatric Surgery [address] [phone] Ashlyn Marcus MD [address] [phone] documented as of this encounter Visit Diagnoses Diagnosis Polyneuropathy- Primary Unspecified hereditary and idiopathic peripheral neuropathy Dry mouth Disturbance of salivary secretion Diabetes mellitus type 2 with neurological manifestations ([facility]) Bronchitis Bronchitis, not specified as acute or [...] documented as of this encounter Care Teams Interactive Media Specialist Relationship Specialty Start Date End Date Charo Chakraborty MD [address] [phone] PCP - General Internal Medicine 09/25/24 documented as of this encounter
--- OUTSIDE RECORDS SUMMARY | 2024-12-07 12:43 | XMS_ITS | Encounter Summary ---
Author Organization [employer] Address [address] [place] [address] Care Team Providers Care Gospel Singer Name Role Phone Charo Chakraborty MD Primary Care Provider [phone] Encounter Details Date Type Department Care Team ([facility] st Contact Info) Description 11/11/2024 Telephone Internal Medicine - [place] [address] [place] [phone] Charo Chakraborty MD [address] [facility] [address] [place] [phone] Social History Tobacco Use Types Packs/Day Years [...] - 11/11/2024 9:36 AM EST Zehra at [facility] is calling [phone] Pt is currently on 100mL suspension for [...] PM EDT Office Visit Bariatric Surgery - [place] 175 [facility] 120 [place] [phone] Maira Zurita MD [address] [phone] 04/07/2025 9:00 AM EDT Office Visit Bariatric Surgery - [place] [address] [phone] Ashlyn Marcus MD [address] [phone] documented as of this encounter Visit Diagnoses Not on filedocumented in this encounter Discontinued Medications Medication Sig Discontinue Reason Start Date End Da te sucralfate (CARAFATE) 100 mg/mL suspension Take 10 mL (1 g total) by mouth every 6 (six) hours. Before meals and at bedtime Reorder 11/05/2024 11/11/2024 documented as of this encounter Care Teams Gospel Singer Relationship Specialty Start Date End Date Charo Chakraborty MD [address] [phone] PCP - General Internal Medicine 09/25/24 documented as of this encounter
--- OUTSIDE RECORDS SUMMARY | 2024-12-07 12:43 | XMS_ITS | Encounter Summary ---
Author Organization [employer] Address [address] [place] [address] Care Team Providers Care Level Glass Forming Machine Operator Name Role Phone Charo Chakraborty MD Primary Care Provider [phone] Reason for Visit * Reason Onset Date Comments Pharmacy 11/04/2024 Encounter Details Date Type Department Care Team (Late st Contact Info) Description 11/04/2024 Telephone Internal Medicine - [place] [address] [place] [phone] Charo Chakraborty MD 175 [facility] [address] [place] [phone] Pharmacy Social History Tobacco Use Types Packs/Day [...] - 11/04/2024 12:24 PM EST Zehra at [facility] is requesting a cb to confirm following meds: Pantoprazole 20mg Omeprazole 20mg Is to be taken together for GERD? She states the pt can also be prescribed pantoprazole 40mg. Cb# to confirm [phone] documented in this encounter Plan of Treatment Upcoming Encounters Date Type Department Care Team (Late st Contact Info) Description 01/21/2025 1:00 PM EDT Office Visit Bariatric Surgery - [address] [place] [phone] Maira Zurita MD 175 [facility] 120 [place], [place] [phone] 04/07/2025 9:00 AM EDT Office Visit Bariatric Surgery - [place] [address] [phone] Ashlyn Marcus MD 175 [facility] 120 [place] [address] documented as of this encounter Visit Diagnoses Not on filedocumented in this encounter Additional Health Concerns Infection Onset Date Last Indicated Resolved Time Respiratory Rule-Out 11/04/2024 11/04/2024 025 1:23 AM EST COVID-19 Rule-Out 11/04/2024 11/04/2024 11/05/2024 1:23 AM EST documented as of this encounter Care Teams Level Glass Forming Machine Operator Relationship Specialty Start Date End Date Charo Chakraborty MD 175 [facility] 200 [place] [phone] PCP - General Internal Medicine 09/25/24 documented as of this encounter
--- OUTSIDE RECORDS SUMMARY | 2024-12-07 12:43 | XMS_ITS ---
Author Organization [facility] Address [address] [place] [address] Care Team Providers Care Chief I Dispatcher Name Role Phone JAXON AGUERO Unavailable [phone] Encounters Encounter Location Date Provider Diagnosis [facility] [address] [phone] 01/01/2024 JAXONJAKI POOLEJose Carlos ASSESSMENTS Encounter Date [...] minimum of 6 months The most recent [place] Association of clinical endocrinologists and [place] College of endocrinology guidelines recommend patients who [...] track activity level. Consider using apps like [employer], My Dog [employer]pal, lose it, stick as needed for self-monitoring and weight management. Consider group exercises. Consider hiring a personal security specialist. Regular exercise is keene to sustainable health [...] counseling and psychiatry and Dr Oliveira at [facility]. We would like to cover regular topics [...] software and direct typing Please excuse inadvertent dianeticist or typing errors, or uncorrected word substitutions Although every attempt has been made by the provider to proofread this document, occasional misspellings and typographical errors may still be present Due to the previous pandemic, and the use of personal protective equipment (PPE) This may decrease voice recognition accuracy Inadvertent dianeticist errors may occur PLAN OF TREATMENT No Information Progress Notes * Jazlyn VARGASDOB: 5 (69 yo F)Acc No.[id number]:01/01/2024 Patient:??Jazlyn VARGAS Provider:??JAXON AGUERO NP :[id number]?Age:68 Y?Sex:Fe male Date:01/01/2024 Address:[address] [place], [place] [id number] Subjective: * Chief Complaints: * ? * [...] ?Lowest weight: lbs ?Goal weight: lbs ?TONY screening/STOP-BANG/[place], * ?Metabolic workup:* ?Thyroid? No recent screening [...] minimum of 6 months The most recent [place] Association of clinical endocrinologists and [place] College of endocrinology guidelines recommend patients who [...] track activity level. Consider using apps like [employer], myfitnesspal, lose it, stick as needed for self-monitoring and weight management. Consider group exercises. Consider hiring a personal security specialist. Regular exercise is keene to sustainable health [...] counseling and psychiatry and Dr Oliveira at [facility]. We would like to cover regular topics [...] software and direct typing Please excuse inadvertent dianeticist or typing errors, or uncorrected word substitutions Although every attempt has been made by the provider to proofread this document, occasional misspellings and typographical errors may still be present Due to the previous pandemic, and the use of personal protective equipment (PPE) This may decrease voice recognition accuracy Inadvertent dianeticist errors may occur. Plan: * Treatment: * [...] Lowest weight: lbs Goal weight: lbs TONY screening/STOP-BANG/[place], * Metabolic workup:* Thyroid? No recent screening [...]
--- OUTSIDE RECORDS SUMMARY | 2024-12-07 12:43 | XMS_ITS | Encounter Summary ---
Author Organization [facility] Address [address] [place] [address] Care Team Providers Care Programs Assistant Name Role Phone Charo Chakraborty MD Primary Care Provider [phone] Reason for Visit * Reason Onset Date Comments Medication Reaction 11/20/2024 Itching - dr y skin Encounter Details Date Type Department Care Team ([facility] st Contact Info) Description 11/20/2024 Telephone Internal Medicine - [place] 175 [facility] [address] [place] [phone] Charo Chakraborty MD [address] [facility] 200 [place] [phone] Medication Reaction (Itching - dry skin) Social [...] Castrejon, please advise message below. * Jennyfer Tarn - 11/20/2024 9:38 AM EST called on [...] and dry itching skin Contact patient - Kyrgyz Speaking - with response documented in this encounter Plan of Treatment Upcoming Encounters Date Type Department Care Team (Late st Contact Info) Description 01/21/2025 1:00 PM EDT Office Visit Bariatric Surgery [facility] [address] [phone] Maira Zurita MD [address] [phone] 04/07/2025 9:00 AM EDT Office Visit Bariatric Surgery [facility] [address] [phone] Ashlyn Marcus MD [address] [phone] documented as of this encounter Visit Diagnoses Not on filedocumented in this encounter Care Teams Programs Assistant Relationship Specialty Start Date End Date Charo Chakraborty MD [address] [phone] PCP - General Internal Medicine 09/25/24 documented as of this encounter
--- OUTSIDE RECORDS SUMMARY | 2024-12-07 12:43 | XMS_ITS | Patient Health Record ---
Author Organization [facility] Address [address] [place] [address] Care Team Providers Care Circus Agent Name Role Phone JAXON AGUERO Unavailable [phone] REASON FOR REFERRAL No Information Encounters Encounter Location Date Provider Diagnosis [facility] [address] [phone] 01/01/[address] [facility] [address] [phone] 02/03/2024 JAXON AGUERO [facility] [address] [place] [address] 02/11/2024 JAXON AGUERO ASSESSMENTS Encounter Date Diagnosis [...] minimum of 6 months The most recent [employer] Association of clinical endocrinologists and [employer] College of endocrinology guidelines recommend patients who [...] track activity level. Consider using apps like [employer], [employer], lose it, stick as needed for self-monitoring and weight management. Consider group exercises. Consider hiring a personal property appraiser. Regular exercise is keene to sustainable health [...] counseling and psychiatry and Dr Oliveira at [facility]. We would like to cover regular topics [...] software and direct typing Please excuse inadvertent mechanical maintenance or typing errors, or uncorrected word substitutions Although every attempt has been made by the provider to proofread this document, occasional misspellings and typographical errors may still be present Due to the previous pandemic, and the use of personal protective equipment (PPE) This may decrease voice recognition accuracy Inadvertent mechanical maintenance errors may occur 02/03/2024 Total time spent [...] minimum of 6 months The most recent [place] Association of clinical endocrinologists and [place] College of endocrinology guidelines recommend patients who [...] track activity level. Consider using apps like [employer], [employer], lose it, stick as needed for self-monitoring and weight management. Consider group exercises. Consider hiring a personal property appraiser. Regular exercise is keene to sustainable health [...] counseling and psychiatry and Dr Oliveira at [facility]. We would like to cover regular topics [...] software and direct typing Please excuse inadvertent mechanical maintenance or typing errors, or uncorrected word substitutions Although every attempt has been made by the provider to proofread this document, occasional misspellings and typographical errors may still be present Due to the previous pandemic, and the use of personal protective equipment (PPE) This may decrease voice recognition accuracy Inadvertent mechanical maintenance errors may occur PLAN OF TREATMENT No Information Insurance Providers Payer Name Payer Address Payer Phone Subscriber Number Group Number Insured Name Patient Relationship to Insured Coverage Start Date Coverage End Date [employer] or Options [address] [place] [id number] Jazlyn Vargas Self - patient is the insured 3
--- OUTSIDE RECORDS SUMMARY | 2024-12-07 12:44 | XMS_ITS | Clinical Summary ---
Author Organization [address] Address [address] [place] [address] Phone Care Team Providers Care Customs Verifier Name Role Phone Charo Chakraborty MD Primary Care Provider Allergies Active Allergy Reactions Criticality Noted Date [...] 42.5 g 3 Active blood sugar diagnostic (GuomaiTouch Verio test strips) test strip USE DAILY [...] (VIAL) 30 capsule 5 024 2024 Discontinued tirzepatide (Mounjaro) 10 mg/0.5 mL injectionIndicat ions:Class 1 obesity due to excess calories with serious comorbidity and body mass index (BMI) of 34.0 to 34.9 in adult Inject 0.5 mL (10 mg total) under the skin every 7 (seven) days. 2 mL 1 025 2024 Discontinued( Dose adjustment) sucralfate (CARAFATE) 100 mg/mL suspension Take 10 [...] TONY (obstructive sleep apnea) 03/25/2018 Overview (07/29/2024): [facility] Sleep [facility] Polysomnogram: Date 07/13/2020; Wt [...] Team Description 11/20/2024 Telephone Internal Medicine - [place] [address] [phone] Charo Chakraborty MD Medication Reaction (Itching - dry skin) 11/17/2024 10:45 AM EST Office Visit Internal Medicine [facility] [address] [phone] Lucía España NP Polyneuropathy (Primary Dx); Dry mouth; Diabetes mellitus type 2 with neurological manifestations ([facility]/HCC); Bronchitis; Itch 11/11/2024 Telephone Internal Medicine [facility] [address] [phone] Charo Chakraborty MD 11/04/2024 7:12 PM EST - 11/05/2024 1:00 PM EST Emergency [facility] Emergency [address] [place] [phone] Fortunato Fofana DO Garvin, Meredith Kate, MD Valdez, Bennie B, MD Chest pain, unspecified type (Primary Dx) Discharge Disposition: Home or Self Care 11/04/2024 Telephone Internal Medicine - [address] [phone] Charo Chakraborty MD Pharmacy 10/23/2024 9:00 AM EST Office Visit Internal Medicine [address] [phone] Charo Chakraborty MD Mild intermittent asthma without complication (Primary Dx); Gastroesophageal reflux disease with esophagitis without hemorrhage 10/22/2024 1:15 PM EST Office Visit Bariatric Surgery [address] [phone] Maira Zurita MD Class 1 obesity due to excess calories with serious comorbidity and body mass index (BMI) of 34.0 to 34.9 in adult (Primary Dx) 10/22/2024 10:42 AM EST - 10/22/2024 11:59 PM EST Hospital [facility] at [address] [phone] Encounter for screening mammogram for breast cancer Discharge Disposition: Home or Self Care 10/20/2024 Telephone Internal Medicine [address] [phone] Charo Chakraborty MD prior auth 10/07/2024 10:30 AM EST Office Visit Bariatric Surgery [address] [phone] Ashlyn Marcus MD Ventral hernia without obstruction or gangrene (Primary Dx); Lipoma of torso; Obesity (BMI 30-39.9) from Last 3 Months Surgical History Surgery Date Site/Laterality Comments ANKLE SURGERY 2017 Right PROCEDURE: HISTORICAL ANKLE SURGERY; COMMENT: medial malleolar fracture SECTION PROCEDURE: HISTORICAL DELIVERY; COMMENT: x3 HYSTERECTOMY PROCEDURE: HISTORICAL HYSTERECTOMY HERNIA REPAIR PROCEDURE: HISTORICAL HERNIA REPAIR/ING COLONOSCOPY 05/24/2020 PROCEDURE: HISTORICAL COLONOSCOPY; COMMENT: tubular adenoma ESOPHAGOGASTRODUODENOSCOPY PROCEDURE: WY EGD TRANSORAL BIOPSY SINGLE/MULTIPLE; COMMENT: Performed in February 2021 during hospitalization Medical History Medical History Date Comments Asthma 02/18/2018 DX:Asthma Chronic obstructive pulmonar y disease (COPD) ([facility]) 02/18/2018 DX:Chronic obstructive pulmo nary disease (COPD) ([facility]) GERD (gastroesophageal reflux disease) 8 DX:GERD (gastroesophageal reflux disease) Allergic rhinitis 03/10/2018 DX:Allergic rh initis Anxiety 03/10/2018 DX:Anxiety Depression 03/10/2018 DX:Depression Diabetes mellitus type 2 wit h neurological manifestations ([facility]) 02/18/2018 DX:Diabetes jacob itus type 2 with neurological manifestations ([facility]) Hypertension 03/10/2018 DX:Hypertension Hypertriglyceridemia 03/10/2018 DX:Hypertri glyceridemia Insomnia 03/10/2018 DX:Insomnia Urinary incontinence 03/10/2018 DX:Urinary incontinence Venous insufficiency 03/10/2018 DX:Venous i nsufficiency Vitamin D deficiency 03/10/2018 DX:Vitamin D deficiency Diabetic peripheral neuropathy ([facility]) 016 DX:Diabetic peripheral neuropathy ([facility]) Panic attack 04/08/2017 DX:Panic attack Osteoarthrosis 05/17/2015 [...] 1:00 PM EDT Office Visit Bariatric Surgery [facility] [address] [phone] Maira Zurita MD [address] [phone] 04/07/2025 9:00 AM EDT Office Visit Bariatric Surgery [facility] [address] [phone] Ashlyn Marcus MD [address] [phone] Health Maintenance Due Date Last Done [...] LAB COAGULATION METHOD 11/05/2024 11:21 AM EST [facility] Blood Venous blood specimen / Unknown Venipuncture / Unknown 11/05/2024 10:43 AM EST 11/05/2024 11:08 AM EST Narrative [facility] ([facility]) [facility] - 11/05/2024 11:21 AM EST D-Dimer <230 ng/mL (D-Dimer units) is the threshold for exclusion of DVT/PE. D-Dimer may be elevated in: Critically ill, severely infected, trauma patients, DIC, acute CVA, acute NE, unstable angina, AF, old age, , and smoking. D-Dimer may be decreased with: Initiation of heparin therapy and oral anticoagulants. Bennie Valdez MD LAB BLOOD ORDERABLES Final Resu lt [facility] ([facility]) [facility] [address] [place] [address], * ECG 12 lead (11/05/2024 10:41 AM EST) Only the most recent of3 resultswithin the time period is included. Pathologist [facility] Ventricular Rate ECG 108 BPM GEMUSE Atrial Rate 108 BPM GEMUSE P-R Interval 150 ms GEMUSE QRS Duration 80 ms GEMUSE Q-T Interval 346 ms GEMUSE QTc 463 ms GEMUSE P Wave Hampton 40 degrees GEMUSE R [place] -29 degrees GEMUSE T [place] 15 degrees GEMUSE ECG Interpretation Sinus tachycardia Minimal voltage criteria for LVH, may be normal variant Anterolateral infarct , age undetermined Abnormal ECG When compared with ECG of 04-NOV-2024 20:01, (unconfirmed) Anterolateral infarct is now Present Confirmed by Swetha HIGGINS, LEIF ([id number]) on 11/05/2024 3:16:36 PM GEMUSE 11/05/2024 10:4 1 AM EST 11/05/2024 3:16 PM EST [facility] ECG ORDERABLES Final Result GEMUSE * Respiratory virus panel molecular study (11/04/2024 11:43 PM EST) Pathologist [facility] Adenovirus Detection by PCR Not Detected Not Detected LAB MICROBIOLOGY METHOD 11/05/2024 1:23 AM [facility] Influenza A PCR Not Detected Not Detected LAB MICROBIOLOGY METHOD 11/05/2024 1:23 AM [facility] Influenza B PCR Not Detected Not Detected LAB MICROBIOLOGY METHOD 11/05/2024 1:23 AM [facility] Coronavirus 229E Not Detected Not Detected LAB MICROBIOLOGY METHOD 11/05/2024 1:23 AM [facility] Coronavirus HKU1 Not Detected Not Detected LAB MICROBIOLOGY METHOD 11/05/2024 1:23 AM [facility] Coronavirus OC43 Not Detected Not Detected LAB MICROBIOLOGY METHOD 11/05/2024 1:23 AM [facility] Coronavirus NL63 Not Detected Not Detected LAB MICROBIOLOGY METHOD 11/05/2024 1:23 AM [facility] Parainfluenza Virus 1 Not Detected Not Detected LAB MICROBIOLOGY METHOD 11/05/2024 1:23 AM [facility] Parainfluenza Virus 2 Not Detected Not Detected LAB MICROBIOLOGY METHOD 11/05/2024 1:23 AM [facility] Parainfluenza Virus 3 Not Detected Not Detected LAB MICROBIOLOGY METHOD 11/05/2024 1:23 AM [facility] Parainfluenza Virus 4 Not Detected Not Detected LAB MICROBIOLOGY METHOD 11/05/2024 1:23 AM [facility] RSV PCR Not Detected Not Detected LAB MICROBIOLOGY METHOD 11/05/2024 1:23 AM [facility] Human Metapneumovirus A and B Not Detected Not Detected LAB MICROBIOLOGY METHOD 11/05/2024 1:23 AM [facility] Rhinovirus/Entero virus Not Detected Not Detected LAB MICROBIOLOGY METHOD 11/05/2024 1:23 AM [facility] Bordetella pertussis Not Detected Not Detected LAB MICROBIOLOGY METHOD 11/05/2024 1:23 AM EST [facility] Bordetella parapertussis Not Detected Not Detected LAB MICROBIOLOGY METHOD 11/05/2024 1:23 AM [facility] Mycoplasma pneumo by PCR Not Detected Not Detected LAB MICROBIOLOGY METHOD 11/05/2024 1:23 AM [facility] Chlamydia pneumoniae Not Detected Not Detected LAB MICROBIOLOGY METHOD 11/05/2024 1:23 AM [facility] SARS COV-2 Not Detected Not Detected LAB MICROBIOLOGY METHOD 11/05/2024 1:23 AM [facility] Swab Both anterior nares / Unknown Non-blood Collection / Unknown 11/04/2024 11:43 PM EST 11/05/2024 12:30 AM EST [facility] - 11/05/2024 1:23 AM EST Testing was performed using the Primitive Makeup Respiratory Pathogen PCR Assay. All results must [...] MICROBIOLOGY - GENERAL ORD ERABLES Final Result [facility] [address] [place] [address], * Troponin I high sensitivity (11/04/2024 10:24 PM EST) Only the most recent of2 resultswithin the time period is included. High Sensitivity Troponin I 4 <=54 ng/L LAB CHEMISTRY METHOD 11/04/2024 11:00 PM EST [facility] Blood Venous blood specimen / Unknown Venipuncture / Unknown 11/04/2024 10:24 PM EST 11/04/2024 10:32 PM EST [facility] - 11/04/2024 11:00 PM EST High levels of biotin in samples may falsely decrease hsTroponin values. ??Use caution when interpreting hsTroponin results in patients taking biotin who exhibit renal impairment (eGFR <60) or in patients taking more than 20 mg/day of biotin. us Fortunato Fofana DO LAB BLOOD ORDERABLES Final Res ult [facility]) [facility] [address] [place] [address], [place] [phone] * XR Chest 2 Views (11/04/2024 9:57 [...] Signed Date: 11/05/2024 00:29 ET Workstation ID: [id number] Transcribed By: Self Edit Transcribed Date: 11/05/2024 [...] Signed Date: 11/05/2024 00:29 ET Workstation ID: [id number] Transcribed By: Self Edit Transcribed Date: 11/05/2024 00:28 ET Fortunato Fofana DO IMG XR PROCEDURES Final Result * CBC auto differential (11/04/2024 7:46 PM EST) WBC 10.2 4.8 - 10.8 K/mcL LAB HEMETOLOGY METHOD 11/04/2024 8:02 PM [facility] RBC 4.30 3.80 - 4.80 M/mcL LAB HEMETOLOGY METHOD 11/04/2024 8:02 PM [facility] Hemoglobin 12.6 11.5 - 16.0 g/dL LAB HEMETOLOGY METHOD 11/04/2024 8:02 PM [facility] Hematocrit 38.3 35.0 - 47.0 % LAB HEMETOLOGY METHOD 11/04/2024 8:02 PM [facility] MCV 90.1 79.0 - 98.0 FL LAB HEMETOLOGY METHOD 11/04/2024 8:02 PM [facility] MCH 29.6 27.0 - 32.0 pcg LAB HEMETOLOGY METHOD 11/04/2024 8:02 PM [facility] MCHC 32.9 32.0 - 37.0 g/dL LAB HEMETOLOGY METHOD 11/04/2024 8:02 PM [facility] RDW 12.9 11.0 - 15.0 % LAB HEMETOLOGY METHOD 11/04/2024 8:02 PM [facility] Platelets 207 130 - 400 K/mcL LAB HEMETOLOGY METHOD 11/04/2024 8:02 PM [facility] MPV 10.6 7.0 - 11.0 FL LAB HEMETOLOGY METHOD 11/04/2024 8:02 PM [facility] NRBC 0.0 <1.0 % LAB HEMETOLOGY METHOD 11/04/2024 8:02 PM [facility] NRBC Absolute 0.00 <0.10 K/mcL LAB HEMETOLOGY METHOD 11/04/2024 8:02 PM [facility] Neutrophils Relative 67.9 % LAB HEMETOLOGY METHOD 11/04/2024 8:02 PM [facility] Lymphocytes Relative 24.2 % LAB HEMETOLOGY METHOD 11/04/2024 8:02 PM [facility] Monocytes Relative 7.1 % LAB HEMETOLOGY METHOD 11/04/2024 8:02 PM [facility] Eosinophils Relative 0.2 % LAB HEMETOLOGY METHOD 11/04/2024 8:02 PM [facility] Basophils Relative 0.3 % LAB HEMETOLOGY METHOD 11/04/2024 8:02 PM [facility] Immature Granulocytes Relative 0.3 % LAB HEMETOLOGY METHOD 11/04/2024 8:02 PM [facility] Neutrophils Absolute 6.90 1.50 - 7.00 K/mcL LAB HEMETOLOGY METHOD 11/04/2024 8:02 PM [facility] Lymphocytes Absolute 2.46 1.00 - 5.00 K/mcL LAB HEMETOLOGY METHOD 11/04/2024 8:02 PM [facility] Monocytes Absolute 0.72 0.20 - 1.00 K/mcL LAB HEMETOLOGY METHOD 11/04/2024 8:02 PM [facility] Eosinophils Absolute 0.02 0.00 - 0.50 K/mcL LAB HEMETOLOGY METHOD 11/04/2024 8:02 PM [facility] Basophils Absolute 0.03 0.00 - 0.20 K/mcL LAB HEMETOLOGY METHOD 11/04/2024 8:02 PM EST [facility] Immature Granulocytes Absolute 0.03 0.00 - 0.03 K/mcL LAB HEMETOLOGY METHOD 11/04/2024 8:02 PM EST [facility] Blood Venous blood specimen / Unknown Venipuncture / Unknown 11/04/2024 7:46 PM EST 11/04/2024 7:54 PM EST us Fortunato Fofana DO LAB BLOOD ORDERABLES Final Res ult Performing Organization Address [facility]/ZIP Co de Phone Number [facility] [address] [place] [address], [place] [phone] * B-type natriuretic peptide (11/04/2024 7:46 PM EST) BNP 15 <=100 pcg/mL LAB CHEMISTRY METHOD 11/04/2024 8:30 PM EST [facility] Blood Venous blood specimen / Unknown Venipuncture / Unknown 11/04/2024 7:46 PM EST 11/04/2024 7:54 PM EST us Fortunato Fofana DO LAB BLOOD ORDERABLES Final Res ult Performing Organization Address [facility]/ZIP Co de Phone Number [facility] [address] [place] [address], [place] [phone] * Magnesium (11/04/2024 7:46 PM EST) Magnesium 2.2 1.9 - 2.6 mg/dL LAB CHEMISTRY METHOD 11/04/2024 8:32 PM EST [facility] Blood Venous blood specimen / Unknown Venipuncture / Unknown 11/04/2024 7:46 PM EST 11/04/2024 7:54 PM EST us Fortunato Fofana DO LAB BLOOD ORDERABLES Final Res ult [facility] [address] [place] [address], [place] [phone] * Lipase (11/04/2024 7:46 PM EST) [facility] Lipase 63 13 - 75 unit/L LAB CHEMISTRY METHOD 11/04/2024 8:29 PM [facility] Blood Venous blood specimen / Unknown Venipuncture / Unknown 11/04/2024 7:46 PM EST 11/04/2024 7:54 PM EST us Fortunato Fofana DO LAB BLOOD ORDERABLES Final Res ult [facility] [address] [place] [address], [place] [phone] * (ABNORMAL) Comprehensive metabolic panel (11/04/2024 7:46 PM EST) [facility] Sodium 138 133 - 145 mmol/L LAB CHEMISTRY METHOD 11/04/2024 8:32 PM [facility] Potassium 3.6 3.5 - 5.5 mmol/L LAB CHEMISTRY METHOD 11/04/2024 8:32 PM [facility] Chloride 105 96 - 110 mmol/L LAB CHEMISTRY METHOD 11/04/2024 8:32 PM [facility] CO2 27 21 - 32 mmol/L LAB CHEMISTRY METHOD 11/04/2024 8:32 PM [facility] Anion Gap 6 3 - 11 LAB CHEMISTRY METHOD 11/04/2024 8:32 PM [facility] Glucose 234(H) 70 - 100 mg/dL LAB CHEMISTRY METHOD 11/04/2024 8:32 PM [facility] BUN 20 5 - 25 mg/dL LAB CHEMISTRY METHOD 11/04/2024 8:32 PM [facility] Creatinine 0.68 0.50 - 1.10 mg/dL LAB CHEMISTRY METHOD 11/04/2024 8:32 PM [facility] eGFR 94 >=60 mL/min/1. 73m2 LAB CHEMISTRY METHOD 11/04/2024 8:32 PM [facility] Comment:Calculation based on the??Chronic Kidney Disease Epidemiology Collaboration (CKD-EPI) equation refit??without adjustment for race. BUN/Creatinine Ratio 29.4 LAB CHEMISTRY METHOD 11/04/2024 8:32 PM [facility] Calcium 9.1 8.5 - 10.5 mg/dL LAB CHEMISTRY METHOD 11/04/2024 8:32 PM [facility] AST (SGOT) 12 10 - 42 unit/L LAB CHEMISTRY METHOD 11/04/2024 8:32 PM [facility] ALT (SGPT) 27 10 - 60 unit/L LAB CHEMISTRY METHOD 11/04/2024 8:32 PM [facility] Alkaline Phosphatase 102 42 - 121 unit/L LAB CHEMISTRY METHOD 11/04/2024 8:32 PM [facility] Total Protein 6.6 6.0 - 8.0 g/dL LAB CHEMISTRY METHOD 11/04/2024 8:32 PM [facility] Albumin 3.4 3.2 - 5.0 g/dL LAB CHEMISTRY METHOD 11/04/2024 8:32 PM [facility] Total Bilirubin 0.2 0.0 - 1.4 mg/dL LAB CHEMISTRY METHOD 11/04/2024 8:32 PM [facility] Blood Venous blood specimen / Unknown Venipuncture / Unknown 11/04/2024 7:46 PM EST 11/04/2024 7:54 PM EST us Fortunato Fofana DO LAB BLOOD ORDERABLES Final Res ult [facility] [address] [place] [address], * ECG-Annotated (11/04/2024) Only the most recent of3 resultswithin the time period is included. us Provider Onbase MD ECG ORDERABLES Final Result * External Xray Report (10/30/2024) Only the most recent of2 resultswithin the time period is included. 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 TISSUE DENSITY: There are scattered [...] Signed Date: 10/22/2024 13:08 ET Workstation ID: [id number] Transcribed By: Self Edit Transcribed Date: 10/22/2024 13:02 ET us Self Referral Sppl IMG BI PROCEDURES Final Resul t * LETTY DEXA AXIAL SKELETON (05/29/2023 7:59 AM EDT) Anatomical Region Laterality Modality Mammography 05/28/2023 12:5 1 PM EDT Narrative 05/29/2023 7:59 AM EDT [facility] Diagnostic Imaging Department [address] [place] [id number] Patient: ??ROLANDO VARGAS ?/Age/Sex: 1955 - F Unit#: ??[id number] ? Location/Status: ??SPDIMAM/REG CLI ? Mnemonic/Ordering Site: ??MAMDEXAAX/SPMAM Ordering Physician: ??YINKA STONE CNM [facility] Dexa Axial Skeleton - 05/28/23 [...] probability of hip fracture of 0.8%. Code 29285 Dictating Physician: ??WALDEMAR HANEY MD Electronically Signed by: ??WALDEMAR HANEY MD Dic Date/Time: ??05/29/23 0758 Sign date/Time: ??05/29/23 0759 Procedure Note Waldemar Haney MD - 11/05/2023 [facility] Diagnostic Imaging Department [address] [place] [address] Patient: ROLANDO VARGAS/Age/Sex: 1955 - 67 - F Unit#: [id number] Location/Status: [facility] Ordering Physician: YINKA STONE CNM Letty [...] density of the femurs bilaterally is 1.141 gm/yh0llzrf is 113% of that of young normals [...] probability of hip fracture of 0.8%. Code 07543 Dictating Physician: WALDEMAR HANEY MD Electronically Signed by: WALDEMAR HANEY MD Dic Date/Time: 05/29/23 0758 Sign date/Time: 05/29/23 0759 Yinka Stone CNM IMG BI PROCEDURES Final Resul t from Last 3 Months or Most Recently Relevant to Health Maintenance Insurance [facility] MEDICARE Member Subscriber Plan / Payer (Ef fective 2023-Present) Name:Rolando Vargas Relation to Subscriber:Self Name:Rolando Vargas Payer ID:[id number] Group ID:[id number] Type:Not on file Address: [address] [address] Advance Directives Documents on File Type Date Recorded Patient Lens Assistant Expl anation Health Care Decision (hx) 07/27/2018 [...] (hx) 07/27/2018 AD GAVIRIA DIRECTIVE Care Teams Customs Verifier Relationship Specialty Start Date End Date Charo Chakraborty MD [address] [phone] PCP - General Internal Medicine 09/25/24
--- OUTSIDE RECORDS SUMMARY | 2024-12-07 12:44 | XMS_ITS ---
Author Organization [facility] Address [address] [place] [address] Care Team Providers Care Warper Creeler Name Role Phone JAXON AGUERO Unavailable [phone] Encounters Encounter Location Date Provider Diagnosis [facility] [address] [place] [address] 02/11/2024 JAXON AGUERO PLAN OF TREATMENT No Information Progress Notes * Jazlyn TELLODOB: 5 (68 yo F)Acc No.[id number]:02/11/2024 Patient:??Jazlyn TELLO :1955?Age:68 Y?Sex:Fe male Address:[address] [place] [address] * true * Date:??
== END 2024-12-07 11:54 | disposition home or self-care (01) ==
LOC: HO.HPS 11:10
PROVIDERS: PCP Internal Medicine; Visit Provider Hospitalist
DX: J45.50 Severe persistent asthma, uncomplicated (principal); R05.2 Subacute cough; G47.33 Obstructive sleep apnea (adult) (pediatric); F51.01 Primary insomnia; R06.09 Other forms of dyspnea; R53.83 Other fatigue
CPT/HCPCS: 99214; G2211

== ENCOUNTER → 2024-12-07 11:10 | Outpatient (BNVA) | payer OTHER, SELFPAY | PROVIDERS: PCP Internal Medicine; Visit Provider Hospitalist | DX: G47.33 Obstructive sleep apnea (adult) (pediatric) (principal); J45.51 Severe persistent asthma with (acute) exacerbation; R53.83 Other fatigue; R06.09 Other forms of dyspnea; F51.01 Primary insomnia; R05.2 Subacute cough | CPT/HCPCS: 99212 ==

== ENCOUNTER 2025-03-02 10:49 | Outpatient (AMB) | payer OTHER, SELFPAY ==
[2025-03-02 10:58] VITALS: BP 130/78; PULSE 91; O2SAT 98; BMI 34.1
--- NOTE | 2025-03-02 10:58 | MHC.OFFVIS ---
Vital Signs 03/02/25 10:58 Height 5 ft 4 in Weight 198 lb 8 oz BMI 34.1 BP 130/78 Blood Pressure Location Lt brachial Position Sitting Pulse 91 Pulse Source Pulse Oximeter Pulse Oximetry (%) 98 Oxygen Delivery Method Room Air Intake Visit Reasons: 3 mnts f/u Intake Note: Patient presents follow up Migraine/TONY. Compliance in chart(88/90 days, >=4hrs-77%, Average usage-4hrs 37min, Med pressure- 7.5, Med leaks- 0.8, AHI-0.8). Patient would like a referral to psychologist at [facility]. Patient having hard time patient had accident and now paralyzed. Patient would also like to get Clearwave. Nurse Wound Care Required: Yes Nurse Wound Care Language: Industrial Engineering Manager Services: Nurse Wound Care Present Nurse Wound Care Name: Amie GRIMALDO Information Interpreted: non-clinical & clinical Accompanied by: Son Allergies naproxen Allergy (Severe, Verified 03/02/25 11:09) Hives egg Allergy (Unknown, Verified 03/02/25 11:10) Stomach Upset acetaminophen [From Percocet] Adverse Reaction (Severe, Verified 03/02/25 11:09) Hallucinations aspirin Adverse Reaction (Severe, Verified 03/02/25 11:09) Hives codeine Adverse Reaction (Severe, Verified 03/02/25 11:09) Itching ibuprofen [From Motrin IB] Adverse Reaction (Severe, Verified 03/02/25 11:09) Hives Iodinated Contrast Media Adverse Reaction (Severe, Verified 03/02/25 11:09) Hypertension mepolizumab [From Nucala] Adverse Reaction (Severe, Verified 03/02/25 11:09) Itching metformin Adverse Reaction (Severe, Verified 03/02/25 11:09) Difficulty Breathing montelukast [From Singulair] Adverse Reaction (Severe, Verified 03/02/25 11:09) Anxiety morphine Adverse Reaction (Severe, Verified 03/02/25 11:09) Hallucinations omalizumab [From Xolair] Adverse Reaction (Severe, Verified 03/02/25 11:09) Anaphylaxis oxycodone Adverse Reaction (Severe, Verified 03/02/25 11:09) Hallucinations pneumococcal vaccine Adverse Reaction (Severe, Verified 03/02/25 11:09) Hives prednisone Adverse Reaction (Severe, Verified 03/02/25 11:09) Itching tramadol Adverse Reaction (Severe, Verified 03/02/25 11:09) Hives accolate Adverse Reaction (Severe, Uncoded 10/30/24 11:11) Chest Pain PCN Adverse Reaction (Severe, Uncoded 10/30/24 11:11) Hives HPI Comments Details: 69 year old Montenegrin speaking female is here for migraine f/u. Her son Bryce is here with her today. IPAD industrial technology teacher on phone call helps with history. TONY Compliance Report 11/2024- 02/2025 Total usage 88/90 days >4 hours 69 days 77% Avg daily use 4 hours and 37 min Press [id number] Leaks median 0.8 and AHI is 0.8/hr Patient is very upset today as her was recently in an accident and paralyzed for life. Her sleep is fragmented, goes to sleep at 11pm, gets up at 1am, and has a hard time falling asleep as she is fatigued. Reports migraine, with 5/6 in severity, and 1 episodes usually per week and can last for days, and worsen if she does not sleep properly, she takes baclofen and it helps to ease the migraines. Migraine characteristics: Migraine is a/w neck pain, dizziness with sensitivity to phonophobia, photophobia, smells and sounds. She loses her balance and feels like the room is spinning.Denies n/v She lays down for a few minutes which makes it better. She has a history of allergies to pet dander, pine, pollen, and environmental pollutants, which cause tearing and burning of the eyes. She also has asthma, managed with sinulair and xolair. She continues to take omegas, and b12. She is forgetful, her mood is irritable and she has brain fog, she often has to trace her steps to remind herself of daily tasks. RLS symptoms: She has numbness and tingling bilaterally in her feet which keeps her up at night, with an uncomfortable sensation crawling up her feet. She wakes up and stretches them as this eases the sensation. [facility] Medical History Tachycardia Osteoarthritis Diabetic peripheral neuropathy Diabetes GERD (gastroesophageal reflux disease) Venous insufficiency Vitamin D deficiency Urinary incontinence Insomnia Hypertriglyceridemia HTN (hypertension) Anxiety Depression Lumbar spondylosis Tubular adenoma Dyspnea Chronic restrictive lung disease Asthma TONY (obstructive sleep apnea) Surgical History History of hernia repair H/O: hysterectomy Hx of cholecystectomy History of section Hx of appendectomy History of ankle surgery Family History Father CHF (congestive heart failure) Mother CHF (congestive heart failure) Asthma Brother Asthma Social History Alcohol intake: never Patient Tobacco Use Status: Never used Tobacco Physical Exam Vital Signs: Last Vital Signs Pulse 91 03/02/25 10:58 BP 130/78 03/02/25 10:58 Pulse Ox 98 03/02/25 10:58 Oxygen Delivery Method Room Air 03/02/25 10:58 BMI result Body Mass Index 34.1 Const General: cooperative and tired appearing Nutritional Appearance: overweight Orientation/consciousness: patient oriented x3 HEENT Face and sinus: Yes face symmetric Eyes Pupils: Equal, round and reactive pupils present Neuro General: patient oriented x3 and moves all extremities Cranial nerves: Yes Facial sensation intact/muscles of mastication intact, Yes Equal, round and reactive pupils present, Yes Normal accommodation reflex present, Yes Normal facial strength present, Yes Midline tongue present, Yes Ability to bilaterally rotate head present and Yes Ability to bilaterally elevate shoulders present Cognition (Neuro): normal cognition Gait exam (Neuro): Normal gait present Motor exam (neuro): 5/5 motor strength present throughout and Normal motor muscle tone present throughout Psych Appearance: grossly normal Affect: Sad affect present Attitude: cooperative Results Reviewed Results Reviewed: TONY Compliance Report 11/2024- 02/2025 Total usage 88/90 days >4 hours 69 days 77% Avg daily use 4 hours and 37 min Press [id number] Leaks median 0.8 and AHI is 0.8/hr Assessment & Plan Assessment & Plan (1) TONY (obstructive sleep apnea): Code(s): G47.33 - Obstructive sleep apnea (adult) (pediatric) Category: Medical (2) Irritable mood: Code(s): R45.4 - Irritability and anger Category: Medical (3) Migraine without aura: Code(s): G43.009 - Migraine without aura, not intractable, without status migrainosus Category: Medical Qualifiers: Intractability: intractable Status migrainosus presence: without status migrainosus Qualified Code(s): G43.019 - Migraine without aura, intractable, without status migrainosus (4) Fatigue: Code(s): R53.83 - Other fatigue Category: Medical Qualifiers: Fatigue type: unspecified Qualified Code(s): R53.83 - Other fatigue Plan For acute migraine headache treatment: Trial Ubrogepant (Ubrelvy) 100mg tab, 1/2 - 1 tab (50-100mg) at onset of headache, may repeat in 2 hours. Max of 2 tabs (200mg) per 24 hours. May adjunct with OTC Tylenol 650-1000mg q 4-6 hours prn. Do not take w/ Butalbital (Fioricet or Fiorinal). Potential adverse effects, include but are not limited to fatigue, nausea, dry mouth, constipation Previous acute migraine medication trials: none Acute migraine medication contraindications: All triptans and DHE d/t HTN, uncontrolled tachycardia. All NSAIDs d/t alllergy. For headache prevention medication: Magnesium 400 mg PO at bedtime daily. Baclofen 10mg qhs. Continue Losartan- ordered for HTN tx. Previous migraine prevention medication trials: no known others at this time Migraine prevention medication contraindications: beta-blockers d/t COPD. For BLE paresthesias: Complete the following labs for common etiologies: CBC/CMP TSH Folate Vitamin B12 Increase Gabapentin from 300mg bid and 600mg qhs to 300mg qam and 600mg bid (mid-day and QHS). Addendum- request for Ubrelvy was denied by insurance. Will trial pt on Sumatriptan 100mg tab, 1/2 - 1 tab (50-100mg) at onset of headache, may repeat in 2 hours. Max of 2 tabs (200mg) per 24 hours. May adjunct with OTC Tylenol 650-100mg q 4-6 hours prn. Potential adverse effects of triptans, include but are not limited to nausea, fatigue, chest tightness/tingling (usually passes within a few minutes), medication overuse headaches. CPAP supplies order sent Orders: Orders Complete Blood Count no Diff 03/02/25 R53.83 - Other fatigue Comprehensive Met. Panel 03/02/25 R53.83 - Other fatigue Hemoglobin A1c 03/02/25 R53.83 - Other fatigue IRON PROFILE 03/02/25 G47.9 - Sleep disorder, unspecified, R53.83 - Other fatigue Homocysteine 03/02/25 G47.9 - Sleep disorder, unspecified, R53.83 - Other fatigue TSH reflex Free T4 03/02/25 R53.83 - Other fatigue Vitamin B12 and Folate 03/02/25 R53.83 - Other fatigue Vitamin D 25-OH Total 03/02/25 R53.83 - Other fatigue Ferritin 03/02/25 R53.83 - Other fatigue Lipid Panel with Reflex 03/02/25 R53.83 - Other fatigue Methylmalonic Acid 03/02/25 G47.9 - Sleep disorder, unspecified, R53.83 - Other fatigue Referrals Psychology Referral R45.4 - Irritability and anger Medications: New ramelteon take one tablet daily for sleep at bedtime. 8 mg PO BEDTIME 30 tabs 1RF fragmented sleep MDD 8mg F51.01 - Primary insomnia Refilled sumatriptan succinate (0.5 - 1 x 100 mg) 50 - 100 mg orally at onset of headache, may repeat in 2 hrs PRN; max 2 tabs per day or 4 tabs/week (may take with Tylenol 30 days 12 tabs 6RF migraine headache R53.83 - Other fatigue Discontinued zolpidem Discontinued Reason: Patient Refused 10 mg PO BEDTIME 30 days PRN 30 tabs 3RF sleep Patient Instructions: Sleep Hygiene provided: set a scheduled bedtime and wake time to help regulate the circadian rhythm and balance the release of pituitary hormones. Sleep in a dark room, temperatures below 68 degrees, and no devices n bed. Limit caffeinated products 6 hours prior to bed, and limit fluids 2-4 hours prior to bed. Gentle night yoga, diffusing essential oils, and playing soft music can be relaxing. Coding Level of Care Code Est Pt Level 4 (33971) Diagnoses TONY (obstructive sleep apnea) G47.33 Irritable mood R45.4 Intractable migraine without aura and without status migrainosus G43.019 Intractability: intractable Status migrainosus presence: without status migrainosus Fatigue, unspecified type R53.83 Fatigue type: unspecified Time Spent (min) 30
--- OUTSIDE RECORDS SUMMARY | 2025-03-02 12:28 | XMS_ITS ---
Author Organization [facility] [address] Address [address] [place] [address] Care Team Providers Care Solar Manufacturer'S Representative Name Role Phone JAXON AGUERO Unavailable [phone] Encounters Encounter Location Date Provider Diagnosis [facility] [address] [address] 02/03/2024 JAXON LACI Assessments Encounter Date Diagnosis [...] minimum of 6 months The most recent [place] [employer] of clinical endocrinologists and [place] [employer] of endocrin[employer] guidelines recommend patients who [...] track activity level. Consider using apps like [employer], [employer], lose it, stick as needed for self-monitoring and weight management. Consider group exercises. Consider hiring a personal injury paralegal. Regular exercise is keene to sustainable health [...] counseling and psychiatry and Dr Oliveira at [facility]. We would like to cover regular topics [...] software and direct typing Please excuse inadvertent tube pusher or typing errors, or uncorrected word substitutions Although every attempt has been made by the provider to proofread this document, occasional misspellings and typographical errors may still be present Due to the previous pandemic, and the use of personal protective equipment (PPE) This may decrease voice recognition accuracy Inadvertent tube pusher errors may occur Plan Of Treatment No Information Progress Notes * ELISHAJazlynDOB: 5 (69 yo F)Acc No.[id number]:02/03/2024 Patient:?Jazlyn VARGAS Provider:?JAXON AGUERO NP :[id number]???Age:68 Y???Sex:Female D ate:02/03/2024 Address:[address] [place], [place] [id number] Subjective: * Chief Complaints: * ??? * HPI: ???Constitutional:? Patient is here today for a weight [...] Lowest weight: lbs Goal weight: lbs TONY screening/STOP-BANG/[place], * Metabolic workup:* Thyroid? No recent screening Diabetes? No recent screening Has not had an echocardiogram recently. Diet: Exercise: Currently steps daily. Non-smoker. ETOH use:. * ROS:?All Other Systems:?Review of Systems (ROS)?All others negative except those mentioned in HPI.? * Medical History:? Objective: * Vitals:? * Examination: ???General Examination: ?GENERAL APPEARANCE:?in no acute distress, well developed, well nourished.?HEAD:?normocephalic, atraumatic.?EYES:?pupils equal, round, reactive to light and accommodation.?EARS:?normal.?ORAL CAVITY:?mucosa moist.?THROAT:?clear.?NECK/THYROID:?neck supple, full range of motion, no cervical lymphadenopathy.?SKIN:?no suspicious lesions, warm and dry.?HEART:?no murmurs, regular rate and rhythm, S1, S2 normal.?LUNGS:?clear to auscultation bilaterally.?ABDOMEN:?normal, bowel sounds present, soft, nontender, nondistended.?EXTREMITIES:?no clubbing, cyanosis, or edema.?NEUROLOGIC:?nonfocal, motor strength normal upper and lower extremities, [...] minimum of 6 months The most recent [place] [employer] of clinical endocrinologists and [place] [employer] of endocrin[employer] guidelines recommend patients who [...] track activity level. Consider using apps like [employer], [employer]iftLauncherpal, lose it, stick as needed for self-monitoring and weight management. Consider group exercises. Consider hiring a personal injury paralegal. Regular exercise is keene to sustainable health [...] counseling and psychiatry and Dr Oliveira at [facility]. We would like to cover regular topics [...] software and direct typing Please excuse inadvertent tube pusher or typing errors, or uncorrected word substitutions Although every attempt has been made by the provider to proofread this document, occasional misspellings and typographical errors may still be present Due to the previous pandemic, and the use of personal protective equipment (PPE) This may decrease voice recognition accuracy Inadvertent tube pusher errors may occur. Plan: * Treatment: * Procedure Codes:?17295 NO SH OW OFFICE VISIT * Images: Billing Information: * Visit Code:? * Procedure Codes:? 79913 NO SHOW OFFICE VISIT. * Electronic signature of INDRA AGUERO on 03/02/2025 at 12:27 PM EDT Sign off status: Pending * Provider:?JAXON AGUERO NP Date:?2023 Generated for Printi ng/Faxing/eTransmitting on:?03/02/2025 12:27 PM EDT History and Physical Notes * [...] Lowest weight: lbs Goal weight: lbs TONY screening/STOP-BANG/[place], * Metabolic workup:* Thyroid? No recent screening [...]
== END 2025-03-02 11:50 | disposition home or self-care (01) ==
LOC: HO.HSMS 10:50
PROVIDERS: PCP Internal Medicine; Visit Provider Physician Assistant Medical
DX: G47.33 Obstructive sleep apnea (adult) (pediatric) (principal); R45.4 Irritability and anger; G43.019 Migraine without aura, intractable, without status migrainosus; R53.83 Other fatigue
CPT/HCPCS: 99214

== ENCOUNTER → 2025-03-02 10:49 | Outpatient (BNVA) | payer OTHER, SELFPAY | PROVIDERS: PCP Internal Medicine; Visit Provider Physician Assistant Medical | DX: G47.33 Obstructive sleep apnea (adult) (pediatric) (principal); G43.019 Migraine without aura, intractable, without status migrainosus; R53.83 Other fatigue; R45.4 Irritability and anger | CPT/HCPCS: 99212 ==

== ENCOUNTER 2025-03-09 11:15 | Outpatient (AMB) | payer OTHER, SELFPAY ==
[2025-03-09 11:20] VITALS: BP 124/68; PULSE 94; O2SAT 100; BMI 33.9
--- NOTE | 2025-03-09 11:20 | A.OFFVIS_ITS ---
Vital Signs 03/09/25 11:20 Height 5 ft 4 in Weight 197 lb 5.019 oz BMI 33.9 BP 124/68 Blood Pressure Location Lt brachial Position Sitting Pulse 94 Pulse Source Pulse Oximeter Pulse Oximetry (%) 100 Oxygen Delivery Method Room Air Intake Visit Reasons: cough Allergies naproxen Allergy (Severe, Verified 03/09/25 11:27) Hives egg Allergy (Unknown, Verified 03/09/25 11:27) Stomach Upset acetaminophen [From Percocet] Adverse Reaction (Severe, Verified 03/09/25 11:27) Hallucinations aspirin Adverse Reaction (Severe, Verified 03/09/25 11:27) Hives codeine Adverse Reaction (Severe, Verified 03/09/25 11:27) Itching ibuprofen [From Motrin IB] Adverse Reaction (Severe, Verified 03/09/25 11:27) Hives Iodinated Contrast Media Adverse Reaction (Severe, Verified 03/09/25 11:27) Hypertension mepolizumab [From Nucala] Adverse Reaction (Severe, Verified 03/09/25 11:27) Itching metformin Adverse Reaction (Severe, Verified 03/09/25 11:27) Difficulty Breathing montelukast [From Singulair] Adverse Reaction (Severe, Verified 03/09/25 11:27) Anxiety morphine Adverse Reaction (Severe, Verified 03/09/25 11:27) Hallucinations omalizumab [From Xolair] Adverse Reaction (Severe, Verified 03/09/25 11:27) Anaphylaxis oxycodone Adverse Reaction (Severe, Verified 03/09/25 11:27) Hallucinations pneumococcal vaccine Adverse Reaction (Severe, Verified 03/09/25 11:27) Hives prednisone Adverse Reaction (Severe, Verified 03/09/25 11:27) Itching tramadol Adverse Reaction (Severe, Verified 03/09/25 11:27) Hives accolate Adverse Reaction (Severe, Uncoded 10/30/24 11:11) Chest Pain PCN Adverse Reaction (Severe, Uncoded 10/30/24 11:11) Hives HPI Comments Details: The patient is a 69-year-old woman with a known history of asthma in addition to obstructive sleep apnea. She has been noticing worsening respiratory symptoms. She was placed on singular as a steroid sparing agent. However, she developed symptoms of depression and had to come off. She is continued on Trelegy which appears to be helping her. The patient had been on Nucala in the past for severe asthma. However, she developed an allergic reaction as well and had to stop it. She has not tried any other biologic medications after that. The patient has not required any prednisone. She also has diabetes and would like to hold off on any significant steroids that can worsen her diabetes control. The patient does have underlying allergies at this point will go ahead and we check her allergies to further assess her potential triggers in order to control her asthma symptoms. The patient also has underlying sleep apnea. She has been having difficulties tolerating the CPAP therapy. Therefore she has not been using it regularly the patient also has a hard time sleeping. She has been using gabapentin with some partial improvement of her symptoms. She does complaint of restless leg. 10/23/2023 the patient is here for a pulmonary follow-up visit. Apparently she was sick back close to the holidays. She had a hard time getting in to be seen. Therefore she stayed home and gave herself breathing treatments throughout the day and finally started feeling better after few days. She was concerned though that her breathing was significantly effective. The patient did not take any prednisone and she does not like to take prednisone because it causes her to have pleuritis and also elevated blood sugars. She is also struggling with her sleep. She does have a CPAP in the CPAP therapy has been very affecting beneficial for her in the past but now she does not get supplies from the [email or web address]. Her machine now is older than 5 years therefore will see about getting her new machine them in more effective and then that weight getting her situated with the [email or web address]. Her [place] score is elevated at 10 over 24. She does have cardiovascular risk factors are treating his sleep apnea is important. The patient likely will require repeat home sleep study. Will reach out to her [employer] company to see if they need any other additional information in order to get a replacement machine at this time. In the meantime for her respiratory symptoms she does have increased wheezing therefore will send him medications with the pharmacy and will optimize her Trelegy by switching over to the 200 mcg dose for a month and then hopefully we can titrate her back down to the 100 mcg those. 03/27/2024 the patient is here for sick visit. She has been sick for about 3-4 days. She started developing increased chest tightness and cough. She is also felt weak. She felt some chills. She did call the office we do not have any availability we recommended she go to urgent care. She called again we sent her some medications in the meantime. We made an appointment for today. She has been feeling a little better since she started the Medrol Evelio and she also started the antibiotics, azithromycin. She is still coughing up significant amount of mucus. Greenish in color. She did have a sample that was sent. 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 She was treated with Bactrim for about 4 weeks. She tolerated the treatment well. Will go ahead and send also modified acid-fast for Nocardia. The patient is having significant wheezing on examination. We did provide her with 2 DuoNeb treatments and also that swab for RSV, flu and COVID-19. The result came back negative. She also had a chest x-ray which I personally reviewed which demonstrated some slight atelectasis to the left base suggesting bronchitis. Will go ahead and treat her for early pneumonia at this time. 04/09/2024 the patient is here for a pulmonary follow-up visit. She has now completed the prednisone. Her sugars were significantly elevated up to 500 while on the prednisone. The patient did call EMS but by the time they got there she did take insulin and had improved. She still having hard time with breathing. Significant shortness of breath even at rest. Moderate severity. She has been using the nebulizer every 3-4 hours. She continues on the Trelegy inhaler. Unfortunately exam she is still having significant wheezing and rhonchi. She did complete 2 courses of antibiotics. Her chest x-ray was fairly clear except for some areas of atelectasis. Will go ahead and request blood work specially because heart rate significantly elevated at 125. She will go ahead blood work including a D-dimer to make sure she does not have a risk of thromboembolic disease. She will need additional prednisone. Will try to split into [address] her sugars do not go as high. She will have to take insulin the meantime to maintain her sugars within reason. If her symptoms worsen she may need to go to the ER otherwise follow-up in 3-4 weeks. 04/20/2024 the patient is here for a follow-up visit. She had a hard few months. Her asthma has been uncontrolled. Unfortunately she also has uncontrolled diabetes making it difficult to give her prednisone. We tried maximizing her respiratory therapy by adding budesonide. She has been in the Trelegy. Still having significant wheezing. Also chest congestion removed some greenish phlegm out of her lungs. Will go ahead and try to further adjust her in respiratory therapy by placing her on Brovana in continue the budesonide and then adding Incruse and moving the Trelegy. Hopefully with the nebulized therapy providing further bronchodilation deeper into the airways. In addition to that the patient will be starting on theophylline. She understands the adverse effects of theophylline. Specialist stimulant. She is going to monitor closely any symptoms. She can not tolerated she is going to back off and call me. The patient also will have theophylline levels checked in the coming weeks. I am hopeful though that with the theophylline she will start feeling better. She also continues on Dupixent injections every 2 weeks. If the patient is not getting any better very aggressive respiratory regimen will talk about considering bronchoscopy to rule out deep respiratory infections. And if no infections are warranted then at that point consider changing her biologic to test prior. Will reassess in 2-3 weeks. 05/07/2024 the patient is here for pulmonary follow-up visit. Overall she is doing better from a respiratory status. She did complete the prednisone which is reassuring. The patient has been on the nebulized therapy with some improvement. She did not supervisor picking crew the theophylline as it was not the pharmacy. At this point since her respiratory status is better will hold off on the as well. She does have difficulty sleeping. She is having significant restlessness. She is already taking gabapentin. I will give her higher dose at nighttime so she can sleep a little better. She is having some neuropathy issues. She will follow-up with her primary care doctor regarding that. In the meantime she continues with the Dupixent injections. Will continue to see her progress. If the patient continues to have underlying respiratory issues will consider switching her over to Tezspire. Also, we can always consider theophylline the future. 08/12/2024 the patient is here for a pulmonary follow-up visit. Overall she is doing better from a respiratory status. Unfortunately though when she feels better she does not use her nebulized therapy. Therefore she needs to continue to use her maintenance inhalers. Will go back to Trelegy that she tolerated before and will be optimizing respiratory therapy. This is because she still has wheezing on examination. The patient also continues on the Dupixent injections which appeared to be affecting beneficial. In no need to change him at this time. She has multiple complaints though she has difficulty sleeping because of neuropathy and restless leg. She is having blood work done add additional blood work to her testing. The patient is having hard time sleeping. She is willing to try Ambien as needed to see if this provides her more restful sleep in therefore she is not so aware of the issues. She continues on the gabapentin at nighttime as well for neuropathy. Will follow-up in about 4 months. If she has any issues prior to that she will call for an earlier assessment. 10/30/2024 the patient is here for a pulmonary follow-up visit. Overall the patient had been doing well until about a month ago when she started developing worsening respiratory symptoms. She went to an urgent care was having a course of azithromycin. Then she went to her primary care doctor that give her some prednisone and also another course of azithromycin. She is not significantly better. She still complains of cough chest tightness and wheezing. She has not had a chest x-ray she will have 1 today. In the meantime will start on doxycycline. She still has wheezing but she has been off the budesonide nebs. Therefore she understands that she needs to stay on this medication to minimize the need for prednisone. She got weaned off prednisone start the budesonide this time and continue other respiratory regimen. If the x-ray demonstrates any evidence of any airspace disease I will call her to add an additional antibiotic. Currently she is on Dupixent. I do believe that she may be a good candidate for Tezspire if she continues to be symptomatic. She does feel like Dupixent has been helping though. Therefore will continue that for now. 12/07/2024 the patient is here for a pulmonary follow-up visit. Overall doing well. Although still having some wheezing. She has not been using the Trelegy because it causes hoarseness. She has been using Incruse in the meantime. Although with increased wheezing she needs to have optimization of her inhalers. I will go ahead and send her breztri to the pharmacy with the hopes that with a spacer it does not cause significant hoarseness. She also has been using her CPAP every night. Although sometimes she does not lost the 4 hours because the machine starts leaking from the sizing the sound bothers her. Explained to her that she needs to use it 4 hours a night. She is going to do a better effort. In the meantime I did provide her with an AirTouch F20 medium mask this seems to be doing a little better and therefore she does not have to put it so tight and her phase to be able to get a good seal. Seems like it is going to work well for her. Will go ahead and request the same mask from her [employer] company. She continues to Dupixent seems to be helping her. Will follow-up in about 3-4 months. If she has any issues prior to that she will call for an earlier assessment. 03/09/2025 the patient is here for pulmonary follow-up visit. Her asthma has been more active lately. Significant wheezing and asthma symptoms for the last couple weeks. Moderate severity. She has been using respiratory inhalers as prescribed. She is also going through a significant family or deal where she lost her tragically in the have a lot a grieving going on right now. This may be affecting her breathing. She is also not sleeping well. I will provide her some Ambien for now. In the meantime if her symptoms worsen she may need some prednisone. She does have a nebulizer machine and her respiratory medications. She will continue a prescribed. She has not issues prior to that she will call for an earlier assessment. She continues on Dupixent injections which will continue as well. [facility] Medical History Tachycardia Osteoarthritis Diabetic peripheral neuropathy Diabetes GERD (gastroesophageal reflux disease) Venous insufficiency Vitamin D deficiency Urinary incontinence Insomnia Hypertriglyceridemia HTN (hypertension) Anxiety Depression Lumbar spondylosis Tubular adenoma Dyspnea Chronic restrictive lung disease Asthma TONY (obstructive sleep apnea) Surgical History History of hernia repair H/O: hysterectomy Hx of cholecystectomy History of section Hx of appendectomy History of ankle surgery Family History Father CHF (congestive heart failure) Mother CHF (congestive heart failure) Asthma Brother Asthma Social History Alcohol intake: never Patient Tobacco Use Status: Never used Tobacco Review of Systems Const Reports difficulty sleeping and Reports fatigue Eyes Denies change in vision ENT Denies change in voice, Reports nasal congestion and Reports nasal discharge Card Denies chest pain and Reports dyspnea on exertion Resp Denies chest congestion, Reports cough, Reports dyspnea on exertion and Reports wheezing GI Reports no additional complaints Musc Reports no additional complaints and Reports tingling Skin/Breast Denies rash Neuro Reports no additional complaints, Reports restless legs, Reports tingling and Reports paresthesias Psych Reports as per HPI Endo Reports fatigue Fernando/Lymph Denies easy bleeding Aller/Immun Reports wheezing Physical Exam Vital Signs: Last Vital Signs Pulse 94 03/09/25 11:20 BP 124/68 03/09/25 11:20 Pulse Ox 100 03/09/25 11:20 Oxygen Delivery Method Room Air 03/09/25 11:20 BMI result Body Mass Index 33.9 Const General: comfortable HEENT Head: Yes normal to inspection Eyes General: appearance normal, both eyes and all related structures Neck Neck: Yes supple Chest Chest palpation & inspection: normal inspection of the chest Resp Effort & Inspection: normal respiratory effort Auscultation: wheezes and diminished lung sounds Cardio Rate: regular rate Rhythm: regular rhythm Heart sounds: S1 normal heart sound present and S2 normal heart sound present GI Inspection: Yes normal to inspection Extrem General: Yes no clubbing, cyanosis or edema Assessment & Plan Assessment & Plan (1) Asthma: Code(s): J45.909 - Unspecified asthma, uncomplicated Category: Medical Qualifiers: Asthma complication type: uncomplicated Asthma persistence: persistent Asthma severity: severe Qualified Code(s): J45.50 - Severe persistent asthma, uncomplicated (2) Cough: Code(s): R05.9 - Cough, unspecified Category: Medical Qualifiers: Cough type: subacute Qualified Code(s): R05.2 - Subacute cough (3) TONY (obstructive sleep apnea): Code(s): G47.33 - Obstructive sleep apnea (adult) (pediatric) Category: Medical (4) Insomnia: Code(s): G47.00 - Insomnia, unspecified Category: Medical Qualifiers: Insomnia type: primary Qualified Code(s): F51.01 - Primary insomnia (5) Dyspnea: Code(s): R06.00 - Dyspnea, unspecified Category: Medical Qualifiers: Dyspnea type: dyspnea on exertion Qualified Code(s): R06.09 - Other forms of dyspnea (6) Fatigue: Code(s): R53.83 - Other fatigue Category: Medical Qualifiers: Fatigue type: unspecified Qualified Code(s): R53.83 - Other fatigue Plan continue Budesonide BID Breztri with spacer continue Dupixent, consider Teazsipre EpiPen available MEMO as needed continue Zyrtec gabapentin at night 600-900mg start Ambien as needed avoid singular secondary to depressive symptoms APAP with supplies. Adjusted APAP 5-12, Will trial F20 airtouch foam Home PSG to address TONY and reactivation once better F/U 4-6 months Medications: New zolpidem (Ambien) 10 mg PO BEDTIME 3 tabs 3RF 3 days prednisone PO daily; Take 2 tabs daily x 5 days, then 1 tablet daily x 5 days 15 tabs 0RF 10 days Coding Level of Care Code Est Pt Level 4 (19804) Complex EM visit Add On G2211 Diagnoses Severe persistent asthma without complication J45.50 Asthma complication type: uncomplicated Asthma persistence: persistent Asthma severity: severe Subacute cough R05.2 Cough type: subacute TONY (obstructive sleep apnea) G47.33 Primary insomnia F51.01 Insomnia type: primary Dyspnea on exertion R06.09 Dyspnea type: dyspnea on exertion Fatigue, unspecified type R53.83 Fatigue type: unspecified Time Spent (min) 18
--- OUTSIDE RECORDS SUMMARY | 2025-03-09 13:32 | XMS_ITS ---
Author Organization [facility] [address] Address [address] [place] [address] Care Team Providers Care Sas Etl Developer Name Role Phone JAXON AGUERO Unavailable [phone] Encounters Encounter Location Date Provider Diagnosis [facility] [address] [address] 02/03/2024 JAXON LACI Assessments Encounter Date Diagnosis [...] minimum of 6 months The most recent [place] Association of clinical endocrinologists and [place] [employer] of endocrinology guidelines recommend patients who [...] track activity level. Consider using apps like PingStamp, [employer], lose it, stick as needed for self-monitoring and weight management. Consider group exercises. Consider hiring a customer service trainer. Regular exercise is keene to sustainable [...] counseling and psychiatry and Dr Oliveira at [facility]. We would like to cover regular topics [...] software and direct typing Please excuse inadvertent manager strategic marketing or typing errors, or uncorrected word substitutions Although every attempt has been made by the provider to proofread this document, occasional misspellings and typographical errors may still be present Due to the previous pandemic, and the use of personal protective equipment (PPE) This may decrease voice recognition accuracy Inadvertent manager strategic marketing errors may occur Plan Of Treatment No Information Progress Notes * ELISHAJazlynDOB: 5 (69 yo F)Acc No.[id number]:02/03/2024 Patient:?Jazlyn VARGAS Provider:?JAXON AGUERO NP :[id number]???Age:68 Y???Sex:Female D ate:02/03/2024 Address:[address] [place], [place] [id number] Subjective: * Chief Complaints: * ??? * [...] Lowest weight: lbs Goal weight: lbs TONY screening/STOP-BANG/[place], * Metabolic workup:* Thyroid? No recent screening [...] minimum of 6 months The most recent [place] [employer] of clinical endocrinologists and [place] [employer] of endocrinology guidelines recommend patients who [...] track activity level. Consider using apps like PingStamp, [employer], lose it, stick as needed for self-monitoring and weight management. Consider group exercises. Consider hiring a customer service trainer. Regular exercise is keene to sustainable [...] counseling and psychiatry and Dr Oliveira at [facility]. We would like to cover regular topics [...] software and direct typing Please excuse inadvertent manager strategic marketing or typing errors, or uncorrected word substitutions Although every attempt has been made by the provider to proofread this document, occasional misspellings and typographical errors may still be present Due to the previous pandemic, and the use of personal protective equipment (PPE) This may decrease voice recognition accuracy Inadvertent manager strategic marketing errors may occur. Plan: * Treatment: * Procedure Codes:?89211 NO SH OW OFFICE VISIT * Images: Billing Information: * Visit Code:? * Procedure Codes:? 37302 NO SHOW OFFICE VISIT. * Electronic signature of INDRA AGUERO on 03/09/2025 at 01:31 PM EDT Sign off status: Pending * Provider:?JAXON AGUERO NP Date:?2023 Generated for Printi ng/Faxing/eTransmitting on:?03/09/2025 01:31 PM EDT History and Physical Notes * [...] Lowest weight: lbs Goal weight: lbs TONY screening/STOP-BANG/[place], * Metabolic workup:* Thyroid? No recent screening Diabetes? No recent screening Has not had an echocardiogram recently. Diet: Exercise: Currently steps daily. Non-smoker. ETOH use: Examination Category Sub-Category Detail Notes Category Not es General Examination GENERAL APPEARANCE: in no ac cherokee distress, well developed, well nourished HEAD: normocephalic, [...]
== END 2025-03-09 15:47 | disposition home or self-care (01) ==
LOC: HO.HPS 11:15
PROVIDERS: PCP Internal Medicine; Visit Provider Hospitalist
DX: J45.50 Severe persistent asthma, uncomplicated (principal); R05.2 Subacute cough; G47.33 Obstructive sleep apnea (adult) (pediatric); F51.01 Primary insomnia; R06.09 Other forms of dyspnea; R53.83 Other fatigue
CPT/HCPCS: 99214; G2211

== ENCOUNTER → 2025-03-09 11:15 | Outpatient (BNVA) | payer OTHER, SELFPAY | PROVIDERS: PCP Internal Medicine; Visit Provider Hospitalist | DX: J45.40 Moderate persistent asthma, uncomplicated (principal); R05.2 Subacute cough; G47.33 Obstructive sleep apnea (adult) (pediatric); F51.01 Primary insomnia; R06.09 Other forms of dyspnea; R53.83 Other fatigue | CPT/HCPCS: 99212 ==

== ENCOUNTER 2025-06-03 12:36 | Outpatient (AMB) | payer OTHER, SELFPAY ==
--- OUTSIDE RECORDS SUMMARY | 2024-01-01 09:30 | XMS_ITS ---
Author Organization [facility] [address] Address [address] [place] [address] Care Team Providers Care Donation Worker Name Role Phone JAXON AGUERO Unavailable [phone] Encounters Encounter Location Date Provider Diagnosis [facility] [address] [address] 01/01/2024 JAXON AGUERO Assessments Encounter Date Diagnosis (ICD Code) Assessment Notes Treatment Notes Treatment Clinical Notes Section Notes 01/01/2024 Total time spent today was 60 minutes of which greater than 50% was spent on coordinating and counseling Patient has been found to be obese with a BMI of (30). Patient has class (1) obesity. We are a board certified obesity and weight management practice Patient has trialed behavioral modification, dietary restrictions and exercise for a minimum of 6 months The most recent [place] [employer]ocrinologists and [place] [employer] guidelines recommend patients who have overweight BMI or obesity BMI, who also have metabolic syndrome, prediabetes, HLD, and other comorbidities or at risk of developing type 2 diabetes should aim for a weight loss goal of at least 10% of the baseline body weight Patient counseled regarding effects of GLP/GIP-1 agonists, and other FDA approved wgt loss meds with regards to a multifactorial approach of weight loss as mentioned above and not solely appetite suppression. We have discussed the mechanism of GLP-1's/GIP, dual incretins I think this would be fantastic option for her given her metabolic workup and body composition We have discussed the risks and benefits and side effects including/and not limited to Sarcopenia, intestinal obstruction, constipation, nausea, lethargy, headache Discussed importance of protein consumption for muscle maintenance as well as strength and resistance training ,probiotics, B12 complex biotin , iron and other nutrients, To help avoid telogen effluvium There is no history of medullary thyroid cancer or multiple endocrine neoplasia There is also no history of cardiovascular disease, hypertension, palpitations, or arrhythmias In the setting of potential stimulant/amphetami ne use such as phentermine We have also discussed risks and benefits, and the use of compounded medications to help offset the national shortages as well as financial implications vs trade name drugs GLP must be discontinued upon initiation We have discussed the lifelong requirement of nutritional supplementation And adherence to an exercise regimen as well as importance We did discuss the neurohormonal changes that are occurring with these medications and Need for long-term Continued usage The patient understands and agrees Patient was reassured and welcomed to the practice. We discussed that we stress a hollistic medical approach with emphasis on lifestyle modification. Patient was informed that a healthy lifestyle with exercise and good eating habits can help reduce his risk of medical complications. He is explained that obesity increases his risk of diabetes, cardiovascular disease, or organ damage. We spent a lot of time discussing the relationship between food, exercise, sleep, mental health and obesity. Patient was counseled on the importance EATING local, organic food when possible. Patient was educated on clean 15 and dirty dozen. I provided information about reading books called The Food Rules by Alex Horton and Eat Fat Get Lean by Dr Iker Nelson. Self education is important in the journey for weight management. Patient was offered diagnostic testing. We want to measure visceral adiposity, advanced body composition, adverse lipids, fatty acid balance, risk for heart disease and atherosclerosis, markers of inflammation and genetic susceptibility. Patient was counseled on weight management and was advised to lose weight using A. Meal Replacement Products We discussed the lifelong requirement of nutritional supplementation and adherence to an exercise regimen as well as importance of dietary f/u Patient was educated on the replacement products called optifast. This is a good way of taking fixed amount of calories. It has been shown in studies to be ineffective weight management tool. We also recommend maintaining adequate protein intake and muscle composition, 1.5mg/kg This however has to be coupled with lifestyle intervention as well as laboratory data and EKG monitoring. It is impossible to know how a person will tolerate complete meal replacement. The side effects of meal replacement and weight loss could include syncopal attacks, dizziness, gallstones, potential cholecystectomy, possible heart attack and even . The benefits of meal replacement would be potential weight loss but no guarantees can be made. Meal replacement products are not covered by insurance. Once the patient has bought these products we cannot return them B. Lifestyle management which includes several strategies as below 1. Eat a low carbohydrate good fat good protein diet. Eliminate refined carbohydrates from the diet. Continue blood sugar and sugared beverages. Eat local organic when possible. Cook your own meals. Read food labels. None about healthy snacks. Portion control and food with low glycemic index 2. Exercise regularly. Try to get at least 6000 steps a day. Use a predominant to track activity level. Consider using apps like Tzee, Breadpal, lose it, stick as needed for self-monitoring and weight management. Consider group exercises. Consider hiring a personal care assistant. Regular exercise is keene to sustainable health and prevents as a buffer against weight regain 3. Sleep is most important for healing. Tried to sleep at least 8 hours a night. A good quality sleep needs a sleep ritual with ideal room temperature of around 68. It might help to take a shower and have no electronics in the room and sleep in a very dark room without artificial light. Start her sleep routine and get up early in the morning and go to bed on time 4. Make a social connection. Surround yourself with positive people with positive energy. Connect with friends and family. 5. Get into the habit of meditating and mindfulness while doing everything. 6. Go outside and connect with nature. C. Prescription medications Patient was educated on the use of prescription medications for medical weight loss. This is a growing list and includes phentermine, Topamax,Qsymia, contrave, belviq and saxenda, wegovy All prescription medications could have side effects including but not limited to kidney stones, seizure disorder cardiac arrhythmias heart attack pancreatitis etc. etc.. Patient was encouraged to read the prescription insert and have coaching with their pharmacist and make an informed decision about taking medication and know that these medications are being prescribed with good intentions and we do not know how a patient would react to her medication. Sudden medications are FDA approved for weight loss and there is also off label use depending on patient's inability to afford medications in an attempt to lose weight D. Behavioral counseling was done to establish a relationship between food and an mood. Patient was provided information about local counseling and psychiatry and Dr Oliveira at [facility]. We would like to cover regular topics and build on low glycemic eating exercise mindful eating, using yoga and meditation along with deep breathing and connecting with friends and family. E. MASS PAT reviewed, Patient's current medications were reviewed and opinion was given on medication that can cause weight gain and can be substituted F. Patient was assessed for risk with obesity including and not limiting to atherosclerosis heart disease stroke kidney disease, restrictive lung disease, irritable bowel syndrome and overall mortality. Risk of developing prediabetes diabetes and metabolic syndrome was discussed G. Therapeutic plan: We have decided to make therapeutic plan which would include choosing wisely on calories restricting portion getting active, tracking weight, getting good quality sleep and working on time management H. Patient will follow up in (4) weeks for weight management Of note, some information is being carried forward from prior records for informational purposes only and is being cited so that efficiency, safety and quality of the patient's care is not compromised This note was prepared using voice recognition software and direct typing Please excuse inadvertent launch engineer or typing errors, or uncorrected word substitutions Although every attempt has been made by the provider to proofread this document, occasional misspellings and typographical errors may still be present Due to the previous pandemic, and the use of personal protective equipment (PPE) This may decrease voice recognition accuracy Inadvertent launch engineer errors may occur Plan Of Treatment No Information Progress Notes * Jazlyn VARGASDOB: 5 (69 yo F)Acc No.[id number]:01/01/2024 Patient: Jazlyn SHELTON Provider: Roberta AGUERO NP :[id number] A ge:68 Y S ex:Female Date:01/01/2024 Address:[address] [place], [place] [id number] Subjective: * Chief Complaints: * * HPI: C onstitutional: Patient is here today for a weight management consultation visit Patient seen and examined. Full past medical history, social history, family history, allergies and current medications were reviewed and updated. Body composition analysis reviewed today, as expected increased BMI, visceral adiposity, fat mass index, waist cirumference Good skeletal mass composition, Good water composition Caloric energy expenditure discussed we discussed the importance of protein calorie nutrition, maintaning muscle mass, vit b12, biotin, iron while on GLP-1 medications, dual incretins, appetitite suppressants #Weight Management 01/01/2024: Weight lbs, BMI: Patient referred to us from . Patient works as Highest weight: lbs Lowest weight: lbs Goal weight: lbs TONY screening/STOP-BANG/[place], * Metabolic workup:* Thyroid? No recent screening Diabetes? No recent screening Has not had an echocardiogram recently. Diet: Exercise: Currently steps daily. Non-smoker. ETOH use:. * ROS: A ll Other Systems: Review of Systems (ROS) A ll others negative except those mentioned in HPI. * Medical History: Objective: * Vitals: * Examination: G eneral Examination: GENERAL APPEARANCE: i n no acute distress, well developed, well nourished. H EAD: n ormocephalic, atraumatic. E YES: p upils equal, round, reactive to light and accommodation. E ARS: n ormal. O RAL CAVITY: m [place] moist. T HROAT: c lear. N YOSELIN/THYROID: n yoselin supple, full range of motion, no cervical lymphadenopathy. S KIN: n o suspicious lesions, warm and dry. H EART: n o murmurs, regular rate and rhythm, S1, S2 normal. L UNGS: c lear to auscultation bilaterally. A BDOMEN: n ormal, bowel sounds present, soft, nontender, nondistended. E XTREMITIES: n o clubbing, cyanosis, or edema. N EUROLOGIC: n onfocal, motor strength normal upper and lower extremities, sensory exam intact. Assessment: * Assessment: Total time spent today was 6 0 minutes of which greater than 50% was spent on coordinating and counseling Patient has been found to be obese with a BMI of (30). Patient has class (1) obesity. We are a board certified obesity and weight management practice Patient has trialed behavioral modification, dietary restrictions and exercise for a minimum of 6 months The most recent [place] [employer] clinical [employer]ocrinologists and [place] [employer] guidelines recommend patients who have overweight BMI or obesity BMI, who also have metabolic syndrome, prediabetes, HLD, and other comorbidities or at risk of developing type 2 diabetes should aim for a weight loss goal of at least 10% of the baseline body weight Patient counseled regarding effects of GLP/GIP-1 agonists, and other FDA approved wgt loss meds with regards to a multifactorial approach of weight loss as mentioned above and not solely appetite suppression. We have discussed the mechanism of GLP-1's/GIP, dual incretins I think this would be fantastic option for her given her metabolic workup and body composition We have discussed the risks and benefits and side effects including/and not limited to Sarcopenia, intestinal obstruction, constipation, nausea, lethargy, headache Discussed importance of protein consumption for muscle maintenance as well as strength and resistance training ,probiotics, B12 complex biotin , iron and other nutrients, To help avoid telogen effluvium There is no history of medullary thyroid cancer or multiple endocrine neoplasia There is also no history of cardiovascular disease, hypertension, palpitations, or arrhythmias In the setting of potential stimulant/amphetamine use such as phentermine We have also discussed risks and benefits, and the use of compounded medications to help offset the national shortages as well as financial implications vs trade name drugs GLP must be discontinued upon initiation We have discussed the lifelong requirement of nutritional supplementation And adherence to an exercise regimen as well as importance We did discuss the neurohormonal changes that are occurring with these medications and Need for long-term Continued usage The patient understands and agrees Patient was reassured and welcomed to the practice. We discussed that we stress a hollistic medical approach with emphasis on lifestyle modification. Patient was informed that a healthy lifestyle with exercise and good eating habits can help reduce his risk of medical complications. He is explained that obesity increases his risk of diabetes, cardiovascular disease, or organ damage. We spent a lot of time discussing the relationship between food, exercise, sleep, mental health and obesity. Patient was counseled on the importance EATING local, organic food when possible. Patient was educated on clean 15 and dirty dozen. I provided information about reading books called The Food Rules by Alex Horton and Eat Fat Get Lean by Dr Iker Nelson. Self education is important in the journey for weight management. Patient was offered diagnostic testing. We want to measure visceral adiposity, advanced body composition, adverse lipids, fatty acid balance, risk for heart disease and atherosclerosis, markers of inflammation and genetic susceptibility. Patient was counseled on weight management and was advised to lose weight using A. Meal Replacement Products We discussed the lifelong requirement of nutritional supplementation and adherence to an exercise regimen as well as importance of dietary f/u Patient was educated on the replacement products called optifast. This is a good way of taking fixed amount of calories. It has been shown in studies to be ineffective weight management tool. We also recommend maintaining adequate protein intake and muscle composition, 1.5mg/kg This however has to be coupled with lifestyle intervention as well as laboratory data and EKG monitoring. It is impossible to know how a person will tolerate complete meal replacement. The side effects of meal replacement and weight loss could include syncopal attacks, dizziness, gallstones, potential cholecystectomy, possible heart attack and even . The benefits of meal replacement would be potential weight loss but no guarantees can be made. Meal replacement products are not covered by insurance. Once the patient has bought these products we cannot return them B. Lifestyle management which includes several strategies as below 1. Eat a low carbohydrate good fat good protein diet. Eliminate refined carbohydrates from the diet. Continue blood sugar and sugared beverages. Eat local organic when possible. Cook your own meals. Read food labels. None about healthy snacks. Portion control and food with low glycemic index 2. Exercise regularly. Try to get at least 6000 steps a day. Use a predominant to track activity level. Consider using apps like Tzee, Breadpal, lose it, stick as needed for self-monitoring and weight management. Consider group exercises. Consider hiring a personal care assistant. Regular exercise is keene to sustainable health and prevents as a buffer against weight regain 3. Sleep is most important for healing. Tried to sleep at least 8 hours a night. A good quality sleep needs a sleep ritual with ideal room temperature of around 68. It might help to take a shower and have no electronics in the room and sleep in a very dark room without artificial light. Start her sleep routine and get up early in the morning and go to bed on time 4. Make a social connection. Surround yourself with positive people with positive energy. Connect with friends and family. 5. Get into the habit of meditating and mindfulness while doing everything. 6. Go outside and connect with nature. C. Prescription medications Patient was educated on the use of prescription medications for medical weight loss. This is a growing list and includes phentermine, Topamax,Qsymia, contrave, belviq and saxenda, wegovy All prescription medications could have side effects including but not limited to kidney stones, seizure disorder cardiac arrhythmias heart attack pancreatitis etc. etc.. Patient was encouraged to read the prescription insert and have coaching with their pharmacist and make an informed decision about taking medication and know that these medications are being prescribed with good intentions and we do not know how a patient would react to her medication. Sudden medications are FDA approved for weight loss and there is also off label use depending on patient's inability to afford medications in an attempt to lose weight D. Behavioral counseling was done to establish a relationship between food and an mood. Patient was provided information about local counseling and psychiatry and Dr Oliveira at [facility]. We would like to cover regular topics and build on low glycemic eating exercise mindful eating, using yoga and meditation along with deep breathing and connecting with friends and family. E. MASS PAT reviewed, Patient's current medications were reviewed and opinion was given on medication that can cause weight gain and can be substituted F. Patient was assessed for risk with obesity including and not limiting to atherosclerosis heart disease stroke kidney disease, restrictive lung disease, irritable bowel syndrome and overall mortality. Risk of developing prediabetes diabetes and metabolic syndrome was discussed G. Therapeutic plan: We have decided to make therapeutic plan which would include choosing wisely on calories restricting portion getting active, tracking weight, getting good quality sleep and working on time management H. Patient will follow up in (4) weeks for weight management Of note, some information is being carried forward from prior records for informational purposes only and is being cited so that efficiency, safety and quality of the patient's care is not compromised This note was prepared using voice recognition software and direct typing Please excuse inadvertent launch engineer or typing errors, or uncorrected word substitutions Although every attempt has been made by the provider to proofread this document, occasional misspellings and typographical errors may still be present Due to the previous pandemic, and the use of personal protective equipment (PPE) This may decrease voice recognition accuracy Inadvertent launch engineer errors may occur. Plan: * Treatment: * Images: Billing Information: * Visit Code: * Procedure Codes: * Electronic signature of INDRA AGUERO on 06/03/2025 at 01:53 PM EDT Sign off status: Pending * Provider: Roberta AGUERO NP Date: 0 01/01/2024 Generated for Denice brown/Aimee/[place]rem[place]ne on: 0 06/03/2025 01:53 PM EDT History and Physical Notes * HPI (History of Present Illness) Category Sub-Category Detail Notes Category Not es Constitutional Patient is here today for a weight management consultation visit Patient seen and examined. Full past medical history, social history, family history, allergies and current medications were reviewed and updated. Body composition analysis reviewed today, as expected increased BMI, visceral adiposity, fat mass index, waist cirumference Good skeletal mass composition, Good water composition Caloric energy expenditure discussed we discussed the importance of protein calorie nutrition, maintaning muscle mass, vit b12, biotin, iron while on GLP-1 medications, dual incretins, appetitite suppressants #Weight Management 01/01/2024: Weight lbs, BMI: Patient referred to us from . Patient works as Highest weight: lbs Lowest weight: lbs Goal weight: lbs TONY screening/STOP-BANG/[place], * Metabolic workup:* Thyroid? No recent screening Diabetes? No recent screening Has not had an echocardiogram recently. Diet: Exercise: Currently steps daily. Non-smoker. ETOH use: Examination Category Sub-Category Detail Notes Category Not es General Examination GENERAL APPEARANCE: in no ac [place] distress, well developed, well nourished HEAD: normocephalic, atrau matic EYES: pupils equal, round, reactive to light and accommodation EARS: normal THROAT: clear NECK/THYROID: neck supple, full ra nge of motion, no cervical lymphadenopathy HEART: no murmurs, regular rate and rhythm, S1, S2 normal LUNGS: clear to auscultatio n bilaterally ABDOMEN: normal, bowel sounds present, soft, nontender, nondistended NEUROLOGIC: nonfocal, motor stre ngth normal upper and lower extremities, sensory exam intact SKIN: no suspicious lesion s, warm and dry EXTREMITIES: no clubbing, cyanosi s, or edema ORAL CAVITY: mucosa moist
--- OUTSIDE RECORDS SUMMARY | 2024-02-03 05:00 | XMS_ITS ---
Author Organization [facility] [address] Address [address] [place] [address] Care Team Providers Care Supervisor Assembly Name Role Phone JAXON AGUERO Unavailable [phone] Encounters Encounter Location Date Provider Diagnosis [facility] [address] [address] 02/03/2024 JAXON LACI Assessments Encounter Date Diagnosis [...] minimum of 6 months The most recent [place] Association of clinical endocrinologists and [place] College of endocrinology guidelines recommend patients who [...] track activity level. Consider using apps like [employer] Halldispal, lose it, stick as needed for self-monitoring and weight management. Consider group exercises. Consider hiring a personal banking advisor. Regular exercise is keene to sustainable health [...] counseling and psychiatry and Dr Oliveira at [facility] We would like to cover regular topics [...] software and direct typing Please excuse inadvertent hr generalist or typing errors, or uncorrected word substitutions Although every attempt has been made by the provider to proofread this document, occasional misspellings and typographical errors may still be present Due to the previous pandemic, and the use of personal protective equipment (PPE) This may decrease voice recognition accuracy Inadvertent hr generalist errors may occur Plan Of Treatment No Information Progress Notes * Jazlyn VARGASDOB: 5 (69 yo F)Acc No.[id number]:02/03/2024 Patient: Jazlyn SHELTON Provider: Roberta AGUERO NP :1955 A ge:68 Y S ex:Female Date:02/03/2024 Address:[address] [place], [place] [id number] Subjective: * Chief Complaints: * * HPI: [...] Lowest weight: lbs Goal weight: lbs TONY screening/STOP-BANG/[place], * Metabolic workup:* Thyroid? No recent screening [...] minimum of 6 months The most recent [place] Association of clinical endocrinologists and [place] College of endocrinology guidelines recommend patients who [...] track activity level. Consider using apps like [employer] Halldispal, lose it, stick as needed for self-monitoring and weight management. Consider group exercises. Consider hiring a personal banking advisor. Regular exercise is keene to sustainable health [...] counseling and psychiatry and Dr Oliveira at [facility] We would like to cover regular topics [...] software and direct typing Please excuse inadvertent hr generalist or typing errors, or uncorrected word substitutions Although every attempt has been made by the provider to proofread this document, occasional misspellings and typographical errors may still be present Due to the previous pandemic, and the use of personal protective equipment (PPE) This may decrease voice recognition accuracy Inadvertent hr generalist errors may occur. Plan: * Treatment: * Procedure Codes: 9 9199 NO SHOW OFFICE VISIT * Images: Billing Information: * Visit Code: * Procedure Codes: 68711 NO SHOW OFFICE VISIT. * Electronic signature of INDRA AGUERO on 06/03/2025 at 01:52 PM EDT Sign off status: Pending * Provider: Roberta AGUERO NP Date: 0 02/03/2024 Generated for Denice brown/Aimee/Tremayne on: 0 06/03/2025 01:52 PM EDT History and Physical Notes * [...] Lowest weight: lbs Goal weight: lbs TONY screening/STOP-BANG/[place], * Metabolic workup:* Thyroid? No recent screening Diabetes? No recent screening Has not had an echocardiogram recently. Diet: Exercise: Currently steps daily. Non-smoker. ETOH use: Examination Category Sub-Category Detail Notes Category Not es General Examination GENERAL APPEARANCE: in no ac eek distress, well developed, well nourished HEAD: normocephalic, [...]
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
[2025-06-03 13:04] VITALS: BP 118/78; PULSE 118; O2SAT 96; BMI 32.5
--- OUTSIDE RECORDS SUMMARY | 2025-06-03 13:53 | XMS_ITS | Clinical Summary ---
Author Organization [facility] Address [address] [place] [address] Phone Care Team Providers Care Admin Prog Coord Name Role Phone Charo Chakraborty MD Primary Care Provider [phone] Allergies Active Allergy Reactions Criticality Noted Date Comments Aspirin 10/05/2009 Codeine 09/14/2010 Ibuprofen Asthma Low 05/23/2017 Asthma exacerbation with excessive use Insulin Aspart Itching 11/22/2023 Iodinated Contrast Media Other 03/24/2020 Mepolizumab 02/15/2021 Itching and eye swelling Metformin 05/08/2016 Montelukast Other High 01/09/2022 Anixety and restlessness Morphine 08/28/2011 Naproxen Asthma Low 12/13/2020 Asthma exacerbation with excessive use Omalizumab Anaphylaxis High 11/22/2017 Oxycodone Hallucinations 01/11/2021 [...] 1 (one) time each day. 024 Active cyclobenzaprine (FLEXERIL) 5 mg tablet Take [...] 1 puff (100 mcg total) by mouth. Active hydrocortisone valerate (WEST-JAYLENE) 0.2 % ointment [...] mL suspension Take 5 mL by mouth. Active meclizine (ANTIVERT) 25 mg tablet Take 1 tablet (25 mg total) by mouth. Active pantoprazole (PROTONIX) 20 mg EC tablet Take 1 tablet (20 mg total) by mouth 1 (one) time each day. Active roflumilast 250 mcg tablet TAKE ONE TABLET BY MOUTH EVERY DAY ^1R4 024 Active estradioL (ESTRACE) 0.01 % (0.1 mg/gram) vaginal cream APPLY A THIN LAYER TO VAGINA / VULVA TWO TIMES WEEKLY AT BEDTIME (BULK) 42.5 g 3 024 Active gabapentin (Neurontin) 400 mg capsule Take 1 capsule (400 mg total) by mouth 3 (three) times a day. 90 each 3 Active albuterol 2.5 mg /3 mL (0.083 %) nebulizer solution INHALE THE CONTENTS OF 1 VIAL VIA NEBULIZER EVERY 6 HOURS NEEDED FOR WHEEZING (BULK) 360 mL 10 024 Active HealthyLax 17 gram packet TAKE THE CONTENTS OF ONE PACKET BY MOUTH ONCE DAILY (BULK) 30 packet Active BD Ultra-Fine Short Pen Needle 31 gauge x 5/16 needle USE TO INJECT INSULIN FOUR TIMES A DAY (BULK) 100 each Active omeprazole (PriLOSEC) [address] capsule Take 1 capsule (20 mg total) by mouth 1 (one) time each day. 90 capsule 3 025 2025 Active methocarbamoL (ROBAXIN) 750 mg tablet Take 1 tablet (750 mg total) by mouth 4 (four) times a day for 5 days. 20 each 025 Active sucralfate (CARAFATE) 100 mg/mL suspension Take 10 mL (1 g total) by mouth every 6 (six) hours. Before meals and at bedtime 1242 mL 7 025 Active pilocarpine (Salagen, pilocarpine,) 5 mg tabletIndication s:Dry mouth Take 1 tablet (5 mg total) by mouth 2 (two) times a day. 60 each 025 2025 Active fluticasone propionate (FLONASE) 50 mcg/actuation nasal spray Administer 2 sprays into each nostril 1 (one) time each day. 48 g 10 Active furosemide (LASIX) 20 mg tablet TAKE ONE TABLET BY MOUTH EVERY DAY ^1R1 30 tablet 5 025 Active methylPREDNISolo ne (MEDROL DOSPAK) 4 mg tabletIndication s:Bronchitis TAKE DIRECTED ON PACKAGE (BULK) 21 tablet 025 Active incontinence pad, liner, disp padIndications:D iabetes mellitus type 2 with neurological manifestations (CMS/HCC V24, CMS/HCC V28),Urinary incontinence, unspecified type 1 each 1 (one) time each day. 100 each 025 Active blood sugar diagnostic (OneTouch Verio test strips) test strip Use as instructed 100 strip 1 Active cholecalciferol (VITAMIN D-3) 50 mcg (2,000 unit) capsule TAKE 1 CAPSULE BY MOUTH DAILY ^1R2 30 capsule 9 025 Active meloxicam (MOBIC) 7.5 mg tablet TAKE ONE TABLET BY MOUTH EVERY DAY ^1R1 30 tablet 3 025 Active triamcinolone (KENALOG) 0.1 % cream APPLY TO AFFECTED AREA(S) TWO TIMES A DAY (BULK) 60 g 3 Active gabapentin (NEURONTIN) 800 mg tabletIndication s:Polyneuropathy Take 1 tablet (800 mg total) by mouth 1 (one) time each day. 30 each 025 Active lidocaine (LIDODERM) 5 % patchIndications :Other diabetic neurological complication associated with type 2 diabetes mellitus (CMS/[facility] V24, CMS/HCC V28) APPLY 1 PATCH TOPICALLY ONCE DAILY (BULK) 30 patch 1 Active lidocaine-priloc keenan (EMLA) 2.5-2.5 % cream APPLY TOPICALLY ONE TIME FOR 1 DOSE 30 g 3 025 Active FLUoxetine (PROzac) 20 mg capsule TAKE ONE CAPSULE BY MOUTH EVERY DAY ^1R1 30 capsule 5 025 Active pantoprazole (PROTONIX) 40 mg EC tablet TAKE ONE TABLET BY MOUTH EVERY DAY - DO NOT CRUSH, CHEW, OR SPLIT ^1R1 30 tablet 5 025 Active glipiZIDE (GLUCOTROL) 10 mg tablet TAKE ONE TABLET BY MOUTH TWICE A DAY BEFORE MEALS ^1R1,1R4 60 tablet 025 Active cetirizine (ZyrTEC) 10 mg tablet TAKE ONE TABLET BY MOUTH EVERY DAY ^1R1 30 tablet 5 025 Active Mounjaro 15 mg/0.5 mL injectionIndicat ions:Class 1 obesity due to excess calories with serious comorbidity and body mass index (BMI) of 34.0 to 34.9 in adult INJECT 0.5ML (15MG TOTAL) UNDER THE SKIN EVERY 7 DAYS (BULK) 2 mL 025 Active magnesium oxide (MAG-OX) 400 mg (241.3 elemental magnesium) tablet Take 1 tablet (400 mg total) by mouth 1 (one) time each day. 30 tablet 5 025 Active losartan (COZAAR) 50 mg tablet Take 1 tablet (50 mg total) by mouth 1 (one) time each day. 30 tablet 025 Active docusate sodium (COLACE) 100 mg capsule TAKE ONE CAPSULE BY MOUTH EVERY DAY (VIAL) 30 capsule 5 Active EPINEPHrine (EPIPEN) 0.3 mg/0.3 mL injectionIndicat ions:Mild intermittent asthma without complication INJECT 1 SYRINGE INTRAMUSCULARLY NEEDED FOR ANAPHYLAXIS (BULK) 2 each Active diphenhydrAMINE (BENADRYL) 25 mg capsuleIndicatio ns:Itch TAKE ONE CAPSULE BY MOUTH EVERY 6 HOURS NEEDED FOR ITCHING (VIAL) 30 capsule 1 Active albuterol HFA (PROAIR HFA ; PROVENTIL HFA ; VENTOLIN HFA) 90 mcg/actuation inhaler INHALE TWO PUFFS BY MOUTH EVERY 6 HOURS IF NEEDED FOR WHEEZING (BULK) 8.5 g Active simethicone (MYLICON,GAS-X) 180 mg capsule TAKE ONE CAPSULE BY MOUTH TWICE A DAY (VIAL) 56 capsule Active alcohol swabs pads, medicated USE FOUR TIMES A DAY BEFORE INSULIN INJECTION AND TEST BLOOD SUGAR (BULK) 100 each Active HumaLOG KwikPen Insulin 100 unit/mL injection pen INJECT 10 UNITS UNDER THE SKIN THREE TIMES A DAY BEFORE MEALS (BULK) 9 mL Active hydrOXYzine HCL (ATARAX) 25 mg tablet TAKE ONE TABLET BY MOUTH FOUR TIMES A DAY (#32 VIAL) ^1R4 60 tablet Active ascorbic acid (VITAMIN C) 1,000 mg tablet TAKE ONE TABLET BY MOUTH EVERY DAY ^1R2 30 tablet Active cyclobenzaprine (FLEXERIL) 10 mg tablet TAKE ONE TABLET BY MOUTH THREE TIMES A DAY NEEDED FOR MUSCLE SPASMS (TRAYS) ^1R1,1R2,1R4 90 tablet 025 Active SUMAtriptan (IMITREX) 25 mg tabletIndication s:Other migraine with status migrainosus, intractable Take 1 tablet (25 mg total) by mouth 1 (one) time if needed for migraine. May repeat dose once in 2 hours if no relief. Do not exceed 2 doses in 24 hours. 27 tablet 3 025 2025 Active omega-3 acid ethyl esters (LOVAZA) 1 gram capsuleIndicatio ns:Type 2 diabetes mellitus with other specified complication, with long-term current use of insulin ([facility] V24, [facility] V28),Polyneuropa thy Take 1 capsule (1 g total) by mouth 2 (two) times a day. 120 capsule 3 025 Active hydrOXYzine pamoate (VISTARIL) 100 mg capsuleIndicatio ns:Insomnia, unspecified type Take 1 capsule (100 mg total) by mouth at bedtime as needed for itching. 30 capsule 2 025 Active omega-3 acid ethyl esters (LOVAZA) 1 gram capsule TAKE ONE CAPSULE BY MOUTH TWICE A DAY ^1R1,1R4 024 2024 Discontinued( Reorder) hydrOXYzine pamoate (VISTARIL) 100 mg capsuleIndicatio ns:Insomnia, unspecified type Take 1 capsule (100 mg total) by mouth at bedtime as needed for anxiety. 30 capsule 11 025 2024 Discontinued Active Problems Problem Noted Date Diagnosed Date Abdominal pain 07/29/2024 Vertigo 01/31/2021 Hot flashes 11/17/2020 Pain of upper abdomen 11/17/2020 Palpitations 11/17/2020 Tubular adenoma 11/17/2020 Allergic conjunctivitis, bilateral 10/03/2020 Epistaxis 10/03/2020 Acute midline low back pain without sciatica Spondylosis of lumbar region without myelopathy or radiculopathy 06/15/2020 Severe obesity (BMI 35.0-39. 9) with comorbidity ([facility] V24, [facility] V28) 02/02/2019 Constipation 04/23/2018 TONY (obstructive sleep apnea) 03/25/2018 Overview (07/29/2024): [facility] Polysomnogram: Date 07/13/2020; Wt [...] reflux disease) 8 Asthma 02/18/2018 Chronic obstructive pulmonar y disease (COPD) [place] [place] [facility] [place] 02/18/2018 Diabetes mellitus type 2 wit h neurological manifestations ([facility] [place] [facility] [place] 02/18/2018 Panic attack 04/08/2017 Osteoarthrosis 05/17/2015 Encounters Date Type Department Care Team Description 06/03/2025 Telephone Internal Medicine [facility] [address] [phone] Toño Petit [place] 05/26/2025 2:30 PM EDT Office Visit Internal Medicine [facility] [address] [phone] Lucía España NP Other migraine with status migrainosus, intractable (Primary Dx); Insomnia, unspecified type; Type 2 diabetes mellitus with other specified complication, with long-term current use of insulin ([facility] [place], [facility] [place]28); Polyneuropathy 05/07/2025 Telephone Internal Medicine [facility] [address] [phone] Charo Chakraborty MD 05/06/2025 11:41 PM EDT - 05/07/2025 12:59 AM EDT Emergency [facility] Emergency [address] [place] [phone] Samreen Scott MD Other migraine without status migrainosus, not intractable (Primary Dx) Discharge Disposition: Home or Self Care 05/06/2025 8:45 AM EDT Office Visit Bariatric Surgery [facility] 175 [facility] [address] [place] [phone] Maira Zurita MD Class 1 obesity due to excess calories with body mass index (BMI) of 30.0 to 30.9 in adult, unspecified whether serious comorbidity present (Primary Dx) 04/08/2025 11:00 AM EDT Consult Orthopedic Surgery [facility] 250 175 [facility] [address] [place] [phone] Aquilino Calderon DPM Diabetes mellitus type 2 with neurological manifestations (CMS/HCC V24, CMS/HCC V28) (Primary Dx); Arthritis of both feet; PVD (peripheral vascular disease) (CMS/HCC V24); Neuropathy; Onychomycosis; Callus 04/07/2025 Telephone Internal Medicine [facility] 175 [facility] [address] [place] [phone] Charo Chakraborty MD 03/25/2025 4:00 PM EDT Office Visit Internal Medicine [facility] 175 [facility] [address] [place] [phone] Aixa Bermudez MD Acute pain associated with herpes zoster (Primary Dx); Polyneuropathy; Diabetes mellitus type 2 with neurological manifestations (CMS/HCC V24, CMS/HCC V28) 03/25/2025 Telephone Internal Medicine [facility] 175 [facility] [address] [place] [phone] Charo Chakraborty MD from Last 3 Months Surgical History Surgery Date Site/Laterality Comments ANKLE SURGERY 2017 Right PROCEDURE: HISTORICAL ANKLE SURGERY; COMMENT: medial malleolar fracture SECTION PROCEDURE: HISTORICAL DELIVERY; COMMENT: x3 HYSTERECTOMY PROCEDURE: HISTORICAL HYSTERECTOMY HERNIA REPAIR PROCEDURE: HISTORICAL HERNIA REPAIR/ING COLONOSCOPY 05/24/2020 PROCEDURE: HISTORICAL COLONOSCOPY; COMMENT: tubular adenoma ESOPHAGOGASTRODUODENOSCOPY PROCEDURE: MA EGD TRANSORAL BIOPSY SINGLE/MULTIPLE; COMMENT: Performed in February 2021 during hospitalization Medical History Medical History Date Comments Asthma 02/18/2018 DX:Asthma Chronic obstructive pulmonar y disease (COPD) [place] [place] [facility] [place]28) 02/18/2018 DX:Chronic obstructi ve pulmonary disease (COPD) ([facility]) GERD (gastroesophageal reflux disease) 8 DX:GERD (gastroesophageal reflux disease) Allergic rhinitis 03/10/2018 DX:Allergic rh initis Anxiety 03/10/2018 DX:Anxiety Depression 03/10/2018 DX:Depression Diabetes mellitus type 2 wit h neurological manifestations ([facility] [place] [facility] [place]) 02/18/2018 DX:Diabetes mellitus type 2 with neurological manifestations ([facility]) Hypertension 03/10/2018 DX:Hypertension Hypertriglyceridemia 03/10/2018 DX:Hypertri glyceridemia Insomnia 03/10/2018 DX:Insomnia Urinary incontinence 03/10/2018 DX:Urinary incontinence Venous insufficiency 03/10/2018 DX:Venous i nsufficiency Vitamin D deficiency 03/10/2018 DX:Vitamin D deficiency Diabetic peripheral neuropat hy ([facility] [place] [facility] [place]) 02/01/2016 DX:Diabetic peripheral neuro geremias ([facility]) Panic attack 04/08/2017 DX:Panic attack Osteoarthrosis 05/17/2015 [...] Sign Reading Time Taken Comments Blood Pressure 130/72 05/26/2025 1:53 PM EDT Pulse 74 05/26/2025 1:53 PM EDT Temperature 36.5 C (97.7 F) 05/06/2025 10:28 PM EDT Respiratory Rate 18 05/06/2025 10:28 PM EDT Oxygen Saturation 98% 05/26/2025 1:53 PM EDT Inhaled Oxygen Concentration - - Weight 84.8 kg (187 lb) 05/26/2025 1:53 PM EDT Height 162.6 cm (5' 4 ) 05/26/2025 1:53 PM EDT Body Mass Index 32.1 05/26/2025 1:53 PM EDT Plan of Treatment Upcoming Encounters Date Type Department Care Team (Late st Contact Info) Description 06/10/2025 2:30 PM EDT Office Visit Orthopedic Surgery [facility] [address] [phone] Aquilino Calderon DPM [address] [phone] 06/17/2025 11:00 AM EDT Nutrition Internal Medicine [facility] [address] [phone] Lacy Gonzalez, RD [address] [place] [phone] 07/01/2025 1:00 PM EDT Office Visit Internal Medicine [facility] 175 [facility] [address] [place] [phone] Charo Chakraborty MD [address] [place] [phone] 11/09/2025 9:45 AM EST Office Visit Bariatric Surgery [facility] 175 [facility] [address] [place] [phone] Maira Zurita MD [address] [place] [phone] Health Maintenance Due Date Last Done Comments Diabetes: Annual Foot Exam 1965 Diabetes: Annual Retina Eye Exam 1965 DTaP,Tdap,and Td Vaccines (1 - Tdap) 1974 Zoster Vaccines (1 of 2) 2005 RSV Immunization Adult Patients (1 - Risk 60-74 years 1-dose series) 2015 Colorectal Cancer Screening: Colonoscopy 09/08/2022 Falls Risk Assessment 09/08/2022 Hepatitis C Screening 09/08/2022 Medicare Annual Wellness Visit 09/08/2022 Social Influencers of Health Screening 09/08/2022 Depression Screening 09/30/2024 COVID-19 Vaccine ( season) 2025 Influenza Vaccine (#1) 2025 Diabetes: Blood Sugar Control Test (HGBA1C) 07/17/2025 01/15/2025, 07/24/2024 Diabetes: Annual GFR (Glomerular Filtration Rate) 11/04/2025 11/04/2024, 07/24/2024 Hypertension/CHF/CAD Annual BMP Blood Test 11/04/2025 11/04/2024, 07/24/2024 Diabetes: Annual Urine Albumin-Creatinine Ratio (uACR) 01/15/2026 01/15/2025 Breast Cancer Screening 10/22/2026 10/22/19, 09/04/2023, 08/22/2022, Additional history exists Cholesterol Screening (Lipid Panel) 01/15/2030 01/15/2025 Osteoporosis Screening (Bone Density Screening) 05/29/2033 05/29/2023 [...] age to complete this topic Meningococcal B Vaccine Aged Out No l onger eligible based on patient's age to complete this topic RSV Immunization Patients Under 20 months Aged Out No longer eligible based on patient's age to complete this topic Varicella Vaccines Aged Out No longer eligible based on patient's age to complete this topic Procedures Procedure Name Priority Date/Time Associated Diagnosis Comments MICROALBUMIN CREATININE URINE RATIO Routine 01/15/2025 11:31 AM EDT Diabetes mellitus type 2 with neurological manifestations ([facility] V24, [facility] V28) HEMOGLOBIN A1C Routine 01/15/2025 11:31 AM EDT Diabetes mellitus type 2 with neurological manifestations ([facility] V24, [facility] V28) Low TSH level Anemia, unspecified type LIPID PANEL WITH REFLEX TO DIRECT LDL Routine 01/15/2025 11:31 AM EDT Hypertriglyceridemia COMPREHENSIVE METABOLIC PANEL STAT 11/04/2024 7:46 PM EST MG MAMMO DIGITAL SCREENING W CURT BILAT Routine 10/22/2024 11:25 AM EST Encounter for screening mammogram for breast cancer LETTY DEXA AXIAL SKELETON Routine 05/29/2023 7:59 AM EDT Asymptomatic menopausal state from Last 3 Months or Most Recently Relevant to Health Maintenance Results * (ABNORMAL) Lipid panel with reflex to direct LDL (01/15/2025 11:31 AM EDT) Cholesterol 173 0 - 200 mg/dL LAB CHEMISTRY METHOD 01/15/2025 3:56 PM EDT [facility] Triglycerides 121 0 - 150 mg/dL LAB CHEMISTRY METHOD 01/15/2025 3:56 PM EDT [facility] HDL 48 >=40 mg/dL LAB CHEMISTRY METHOD 01/15/2025 3:56 PM T [facility] LDL Calculated 101(H) 0 - 100 mg/dL LAB CHEMISTRY METHOD 01/15/2025 3:56 PM T [facility] VLDL Cholesterol Tino 24.2 mg/dL LAB CHEMISTRY METHOD 01/15/2025 3:56 PM EDT [facility] Non HDL Chol. (LDL+VLDL) 125 <145 mg/dL LAB CHEMISTRY METHOD 01/15/2025 3:56 PM EDT [facility] Chol/HDL Ratio 3.6 0.0 - 4.4 LAB CHEMISTRY METHOD 01/15/2025 3:56 PM EDT [facility] Blood Venous blood specimen / Unknown Venipuncture / Unknown 01/15/2025 11:31 AM EDT 01/15/2025 1:45 PM EDT Charo Chakraborty MD LAB BLOOD ORDERABLES Final Res ult [facility] [address] [place] [address], [place] [phone] * Microalbumin creatinine urine ratio (01/15/2025 11:31 AM EDT) Creatinine, Urine 87.0 mg/dL LAB CHEMISTRY METHOD 01/15/2025 4:55 PM EDT [facility] Microalb, Ur 6.4 0.0 - 29.0 mg/L LAB CHEMISTRY METHOD 01/15/2025 4:55 PM EDT [facility] Microalb/Creat Ratio 7 <30 mg/g creat LAB CHEMISTRY METHOD 01/15/2025 4:55 PM EDT [facility] Urine Urine specimen obtained by clean catch procedure / Unknown Non-blood Collection / Unknown 01/15/2025 11:31 AM EDT 01/15/2025 4:46 PM EDT Charo Chakraborty MD LAB URINE ORDERABLES Final Res ult Performing Organization Address City/[facility]/ZIP Co de Phone Number [facility] [address] [place] [address], [place] [phone] * (ABNORMAL) Hemoglobin A1c (01/15/2025 11:31 AM EDT) Hemoglobin A1C 8.3(H) <6.5 % LAB CHEMISTRY METHOD 01/15/2025 9:33 PM EDT [facility] Mean Bld Glu Estim. 192 mg/dL LAB CHEMISTRY METHOD 01/15/2025 9:33 PM EDT [facility] Blood Venous blood specimen / Unknown Venipuncture / Unknown 01/15/2025 11:31 AM EDT 01/15/2025 9:33 PM EDT us Charo Chakraborty MD LAB BLOOD ORDERABLES Final Res ult [facility] [address] [place] [address], [place] [phone] * (ABNORMAL) Comprehensive metabolic panel (11/04/2024 7:46 PM EST) Sodium 138 133 - 145 mmol/L LAB CHEMISTRY METHOD 11/04/2024 8:32 PM [facility] Potassium 3.6 3.5 - 5.5 mmol/L LAB CHEMISTRY METHOD 11/04/2024 8:32 PM [facility] Chloride 105 96 - 110 mmol/L LAB CHEMISTRY METHOD 11/04/2024 8:32 PM [facility] CO2 27 21 - 32 mmol/L LAB CHEMISTRY METHOD 11/04/2024 8:32 PM [facility] Anion Gap 6 3 - 11 LAB CHEMISTRY METHOD 11/04/2024 8:32 PM [facility] Glucose 234(H) 70 - 100 mg/dL LAB CHEMISTRY METHOD 11/04/2024 8:32 PM [facility] BUN 20 5 - 25 mg/dL LAB CHEMISTRY METHOD 11/04/2024 8:32 PM [facility] Creatinine 0.68 0.50 - 1.10 mg/dL LAB CHEMISTRY METHOD 11/04/2024 8:32 PM [facility] eGFR 94 >=60 mL/min/1. 73m2 LAB CHEMISTRY METHOD 11/04/2024 8:32 PM [facility] Comment:Calculation based on the Chronic Kidney Disease Epidemiology Collaboration (CKD-EPI) equation refit without adjustment for race. BUN/Creatinine Ratio 29.4 LAB CHEMISTRY METHOD 11/04/2024 8:32 PM [facility] Calcium 9.1 8.5 - 10.5 mg/dL LAB CHEMISTRY METHOD 11/04/2024 8:32 PM [facility] AST (SGOT) 12 10 - 42 unit/L LAB CHEMISTRY METHOD 11/04/2024 8:32 PM [facility] ALT (SGPT) 27 10 - 60 unit/L LAB CHEMISTRY METHOD 11/04/2024 8:32 PM [facility] Alkaline Phosphatase 102 42 - 121 unit/L LAB CHEMISTRY METHOD 11/04/2024 8:32 PM [facility] Total Protein 6.6 6.0 - 8.0 g/dL LAB CHEMISTRY METHOD 11/04/2024 8:32 PM [facility] Albumin 3.4 3.2 - 5.0 g/dL LAB CHEMISTRY METHOD 11/04/2024 8:32 PM [facility] Total Bilirubin 0.2 0.0 - 1.4 mg/dL LAB CHEMISTRY METHOD 11/04/2024 8:32 PM [facility] Blood Venous blood specimen / Unknown Venipuncture / Unknown 11/04/2024 7:46 PM EST 11/04/2024 7:54 PM EST us Fortunato Fofana DO LAB BLOOD ORDERABLES Final Res ult [facility] [address] [place] [address], [place] [phone] * MG Mammo Digital Screening w Curt bilat (10/22/2024 11:25 AM EST) Anatomical Region Laterality Modality Breast Bilateral Mammography 10/22/2024 1:02 PM EST Impressions 10/22/2024 1:08 PM EST No mammographic evidence of malignancy. No suspicious interval change. A negative mammogram in the presence of a clinically suspicious palpable abnormality does not preclude the possibility of malignancy or alter the indications for biopsy. ASSESSMENT: BI-RADS 1: NEGATIVE RECOMMENDATION(S): 1: Routine screening mammogram BILATERAL in 1 year. -------- FINAL REPORT -------- Dictated By: Lopez Miranda Dictated Date: 10/22/2024 13:02 ET Assigned Physician: Lopez Miranda Reviewed and Electronically Signed By: Lopez Miranda Signed Date: 10/22/2024 13:08 ET Workstation ID: [id number] Transcribed By: Self Edit Transcribed Date: 10/22/2024 13:02 ET Narrative 10/22/2024 1:08 PM EST EXAM: SCREENING MAMMOGRAPHY, BILATERAL HISTORY: SCREENING. Family history of breast cancer, sister diagnosed age 45, age 60. COMPARISON: 09/04/2023, 08/22/2022, 08/16/2021, 05/23/2020 TECHNIQUE: Synthesized CC and MLO projections of each breast. Tomosynthesis of each breast in the CC and MLO projections. ADDITIONAL IMAGING: None Computer-aided detection was employed with the [employer] AI 3-D. TISSUE DENSITY: There are scattered areas of fibroglandular density. (BI-RADS category B) FINDINGS: RIGHT BREAST: No suspicious mass. No suspicious calcification. No distortion. No additional suspicious right breast findings LEFT BREAST: No suspicious mass. No suspicious calcification. No distortion. No additional suspicious left breast findings Procedure Note Lopez Miranda MD - 10/22/2024 EXAM: SCREENING MAMMOGRAPHY, BILATERAL HISTORY: SCREENING. Family history of breast cancer, sister diagnosedage 45, age 60. COMPARISON: 09/04/2023, 08/22/2022, 08/16/2021, 05/23/2020 TECHNIQUE: Synthesized CC and MLO projections of each breast.Tomosynthesis of each breast in the CC and MLO projections. ADDITIONAL IMAGING: None Computer-aided detection was employed with the [employer] AI 3-D. TISSUE DENSITY: There are scattered [...] Signed Date: 10/22/2024 13:08 ET Workstation ID: [id number] Transcribed By: Self Edit Transcribed Date: 10/22/2024 13:02 ET us Self Referral Sppl IMG BI PROCEDURES Final Resul t * LETTY DEXA AXIAL SKELETON (05/29/2023 7:59 AM EDT) Anatomical Region Laterality Modality Mammography 05/28/2023 12:5 1 PM EDT Narrative 05/29/2023 7:59 AM EDT [facility] Diagnostic Imaging Department [address] [place] [address] Patient: ELISHAROLANDO /Age/Sex: 1955 - 67 - F Unit#: [id number] Location/Status: SPDIMAM/REG CLI Mnemonic[facility] Ordering Physician: YINKA STONE CNM Letty Dexa Axial Skeleton - 05/28/23 - 1321 Report Status:Signed HISTORY: The patient is a 67-year-old postmenopausal female on chronic glucocorticoid therapy, with clinical concern for metabolic bone disease. FINDINGS: Dual energy x-ray absorptiometry of the [...] 122% of that of age matched controls. This yields a T-score of 1.1 and a Z-score of 1.7 and there is therefore no evidence of osteoporosis or osteopenia here. IMPRESSION: 1. There is no evidence of osteoporosis or osteopenia. There has been an increase of 6.6% in bone mineral density in the lumbar spine since the prior examination of 12/27/2016. There has been an increase of 3.7% in bone mineral density in the right femur and an increase of 2.9% in bone mineral density in the left femur. 2. FRAX analysis yields a 10-year probability of major osteoporotic fracture of 10.7% and a 10-year probability of hip fracture of 0.8%. Code 22999 Dictating Physician: WALDEMAR HARTMANN MD Electronically Signed by: WALDEMAR HARTMANN MD Dic Date/Time: 05/29/23 0758 Sign date/Time: 05/29/23 0759 Procedure Note Waldemar Hartmann MD - 11/05/2023 [facility] Diagnostic Imaging Department [address] [place] [address] Patient: ROLANDO TELLO Mily/Age/Sex: 1955 - 67 - F Unit#: [id number] Location/Status: SPDIMAM/REG CLI Mnemonic/Ordering Site: [facility] Ordering [...] density of the femurs bilaterally is 1.141 gm/yz7ggjyh is 113% of that of young normals [...] probability of hip fracture of 0.8%. Code 66693 Dictating Physician: WALDEMAR HARTMANN MD Electronically Signed by: WALDEMAR HARTMANN MD Dic Date/Time: 05/29/23 0758 Sign date/Time: 05/29/23 0759 Yinka Stone [facility] IM BI PROCEDURES Final Resul t from Last 3 Months or Most Recently Relevant to Health Maintenance Insurance [facility] MEDICARE Member Subscriber Plan / Payer (Ef fective 2023-Present) Name:Stephanie Tello Relation to Subscriber:Self Name:Rolando Tello Payer ID:[id number] Group ID:[id number] Type:Not on file Address: [place] [address] [place] [id number] Advance Directives Documents on File Type Date Recorded Patient Environmental Health Manager Expl anation Health Care Decision (hx) 07/27/2018 [...] (hx) 07/27/2018 AD GAVIRIA DIRECTIVE Care Teams Admin Prog Coord Relationship Specialty Start Date End Date Charo Chakraborty MD [address] [place] [phone] PCP - General Internal Medicine 09/25/24
--- OUTSIDE RECORDS SUMMARY | 2025-06-03 13:53 | XMS_ITS | Encounter Summary ---
Author Organization [employer] Address [address] [place] [address] Care Team Providers Care Shank Stitcher Name Role Phone Charo Chakraborty MD Primary Care Provider [phone] Encounter Details Date Type Department Care Team (Late st Contact Info) Description 05/07/2025 Telephone Internal Medicine - [place] [address] [facility] [address] [place] [address] Charo Chakraborty MD [address] [place] [address] Social History Tobacco Use Types Packs/Day Years [...] PM Pitts RN documented in this encounter Plan of Treatment Upcoming Encounters Date Type Department Care Team (Late st Contact Info) Description 06/10/2025 2:30 PM EDT Office Visit Orthopedic Surgery [facility] [address] [facility] 250 [place] [phone] Aquilino Calderon, DPM 175 [facility] 250 [place] [address] 06/17/2025 11:00 AM EDT Nutrition Internal Medicine - [place] 175 [facility] 200 [place] [phone] Lacy Gonzalez, DAVID 175 [place] [phone] 07/01/2025 1:00 PM EDT Office Visit Internal Medicine [facility] 175 [facility] 200 [place] [phone] Charo Chakraborty MD [address] [place], [place] 11/09/2025 9:45 AM EST Office Visit Bariatric Surgery - [place] 175 [facility] 120 [place] [phone] Maira Zurita MD [address] [place], [place] documented as of this encounter Visit Diagnoses Not on filedocumented in this encounter Care Teams Shank Stitcher Relationship Specialty Start Date End Date Charo Chakraborty MD 175 [facility] 200 [place] [phone] PCP - General Internal Medicine 09/25/24 documented as of this encounter
--- OUTSIDE RECORDS SUMMARY | 2025-06-03 13:53 | XMS_ITS | Patient Health Record ---
Author Organization [facility] [address] Address [address] [place] [address] Care Team Providers Care Oncology Coordinator Name Role Phone JAXON AGUERO Unavailable [phone] Reason For Referral No Information Plan Of Treatment No Information Insurance Providers Payer Name Payer Address Payer Phone Subscriber Number Group Number Insured Name Patient Relationship to Insured Coverage Start Date Coverage End Date [employer] or Options [address] [place] [id number] Jazlyn Vagras Self - patient is the insured 3
--- OUTSIDE RECORDS SUMMARY | 2025-06-03 13:53 | XMS_ITS | Encounter Summary ---
Author Organization [employer] Address [address] [place] [address] Care Team Providers Care Carcass Washer Name Role Phone Charo Chakraborty MD Primary Care Provider [phone] Reason for Visit * Reason Onset Date Comments PRIOR AUTH 06/03/2025 Encounter Details Date Type Department Care Team (Late st Contact Info) Description 06/03/2025 Telephone Internal Medicine - [place] [address] [facility] [address] [place] [phone] Toño Petit [place] Social History Tobacco Use Types Packs/Day Years [...] documented in this encounter Progress Notes * Toño Petit [place] - 06/03/2025 9:36 AM EDT Is this a Cover My Meds request: (There is a wells code only if CoverMyMeds) Wells Code: [id number] Name of Medication: HYDROXYZINE What Pharmacy did the fax come from: [facility] fax #: [phone] documented in this encounter Plan of Treatment Upcoming Encounters Date Type Department Care Team (Late st Contact Info) Description 06/10/2025 2:30 PM EDT Office Visit Orthopedic Surgery [facility] [address] [phone] Aquilino Calderon DPM [address] [address] 06/17/2025 11:00 AM EDT Nutrition Internal Medicine - [place] [address] [phone] Lacy Gonzalez, DAVID 175 [place] [phone] 07/01/2025 1:00 PM EDT Office Visit Internal Medicine - [address] [phone] Charo Chakraborty MD [address] [place] [phone] 11/09/2025 9:45 AM EST Office Visit Bariatric Surgery - [place] [address] [place] [address] Maira Zurita MD [address] [place] [phone] documented as of this encounter Visit Diagnoses Not on filedocumented in this encounter Care Teams Carcass Washer Relationship Specialty Start Date End Date Charo Chakraborty MD [address] [place] [address] [place] [address] PCP - General Internal Medicine 09/25/24 documented as of this encounter
== END 2025-06-03 13:51 | disposition home or self-care (01) ==
LOC: HO.HSMS 12:36
PROVIDERS: PCP Internal Medicine; Visit Provider Physician Assistant Medical
DX: G47.33 Obstructive sleep apnea (adult) (pediatric) (principal); G43.019 Migraine without aura, intractable, without status migrainosus; R45.4 Irritability and anger; R53.83 Other fatigue; R20.2 Paresthesia of skin; Z63.4 Disappearance and death of family member
CPT/HCPCS: 99214

== ENCOUNTER → 2025-06-03 12:36 | Outpatient (BNVA) | payer OTHER, SELFPAY | PROVIDERS: PCP Internal Medicine; Visit Provider Physician Assistant Medical | DX: G47.33 Obstructive sleep apnea (adult) (pediatric) (principal); G43.719 Chronic migraine without aura, intractable, without status migrainosus; R45.4 Irritability and anger; R53.83 Other fatigue; R20.2 Paresthesia of skin; Z63.4 Disappearance and death of family member | CPT/HCPCS: 99212 ==

== ENCOUNTER 2025-07-05 12:54 | Outpatient (AMB) | payer OTHER, SELFPAY ==
--- OUTSIDE RECORDS SUMMARY | 2024-02-03 05:00 | XMS_ITS ---
Author Organization [facility] [address] Address [address] [place] [address] Care Team Providers Care Sales Department Manager Name Role Phone JAXON AGUERO Unavailable [phone] Encounters Encounter Location Date Provider Diagnosis [facility] [address] [address] 02/03/2024 JAXON LACI Assessments Encounter Date Diagnosis (ICD Code) Assessment Notes Treatment Notes Treatment Clinical Notes Section Notes 02/03/2024 Total time spent today was 60 minutes of which greater than 50% was spent on coordinating and counseling Patient has been found to be obese with a BMI of (30). Patient has class (1) obesity. We are a board certified obesity and weight management practice Patient has trialed behavioral modification, dietary restrictions and exercise for a minimum of 6 months The most recent [place] Association of clinical endocrinologists and [place] College of endocrinology guidelines recommend patients who [...] track activity level. Consider using apps like Cover[employer], [employer] Saltpal, lose it, stick as needed for self-monitoring and weight management. Consider group exercises. Consider hiring a link trainer teacher. Regular exercise is keene to sustainable health [...] counseling and psychiatry and Dr Oliveira at [facility]. We would like to cover regular topics [...] software and direct typing Please excuse inadvertent valet attendant or typing errors, or uncorrected word substitutions Although every attempt has been made by the provider to proofread this document, occasional misspellings and typographical errors may still be present Due to the previous pandemic, and the use of personal protective equipment (PPE) This may decrease voice recognition accuracy Inadvertent valet attendant errors may occur Plan Of Treatment No Information Progress Notes * Jazlyn VARGASDOB: 5 (69 yo F)Acc No.[id number]:02/03/2024 Patient: Jazlyn SHELTON Provider: Roberta AGUERO NP :1955 A ge:68 Y S ex:Female Date:02/03/2024 Address:[address] [place], [place] [id number] Subjective: * Chief Complaints: * * HPI: [...] medications, dual incretins, appetitite suppressants #Weight Management 02/03/2024: Weight lbs, BMI: Patient referred to us from . Patient works as Highest weight: lbs Lowest weight: lbs Goal weight: lbs TONY screening/STOP-BANG/[place], * Metabolic workup:* Thyroid? No recent screening [...] minimum of 6 months The most recent [place] Association of clinical endocrinologists and [place] College of endocrinology guidelines recommend patients who [...] track activity level. Consider using apps like Covercake, O[employer] Sea Saltpal, lose it, stick as needed for self-monitoring and weight management. Consider group exercises. Consider hiring a link trainer teacher. Regular exercise is keene to sustainable health [...] counseling and psychiatry and Dr Oliveira at [facility]. We would like to cover regular topics [...] software and direct typing Please excuse inadvertent valet attendant or typing errors, or uncorrected word substitutions Although every attempt has been made by the provider to proofread this document, occasional misspellings and typographical errors may still be present Due to the previous pandemic, and the use of personal protective equipment (PPE) This may decrease voice recognition accuracy Inadvertent valet attendant errors may occur. Plan: * Treatment: * Procedure Codes: 9 9199 NO SHOW OFFICE VISIT * Images: Billing Information: * Visit Code: * Procedure Codes: 84479 NO SHOW OFFICE VISIT. * Electronic signature of INDRA AGUERO on 07/05/2025 at 03:17 PM EDT Sign off status: Pending * Provider: Roberta AGUERO NP Date: 0 02/03/2024 Generated for Denice brown/Aimee/Tremayne on: 03:17 PM EDT History and Physical Notes * [...] medications, dual incretins, appetitite suppressants #Weight Management 02/03/2024: Weight lbs, BMI: Patient referred to us from . Patient works as Highest weight: lbs Lowest weight: lbs Goal weight: lbs TONY screening/STOP-B[facility]/[place], * Metabolic workup:* Thyroid? No recent screening Diabetes? No recent screening Has not had an echocardiogram recently. Diet: Exercise: Currently steps daily. Non-smoker. ETOH use: Examination Category Sub-Category Detail Notes Category Not es General Examination GENERAL APPEARANCE: in no ac zuni distress, well developed, well nourished HEAD: normocephalic, [...]
--- OUTSIDE RECORDS SUMMARY | 2025-07-01 13:00 | XMS_ITS | Encounter Summary ---
Author Organization [facility] Address [address] [place] [address] Care Team Providers Care Fac Engineer Name Role Phone Charo Chakraborty MD Primary Care Provider [phone] Reason for Visit * Reason Comments Medicare Annual Wellness Visit Initial Encounter Details Date Type Department Care Team (Latest Contact Info) Description 07/01/2025 1:00 PM EDT Office Visit Internal Medicine - [place] [address] [place] [phone] Charo Chakraborty MD [address] [place] [phone] Mild intermittent asthma without complication (Primary Dx); Diabetes mellitus type 2 with neurological manifestations (CMS/HCC V24, CMS/HCC V28); Encounter for subsequent annual wellness visit (AWV) in Medicare patient Social History Tobacco Use Types Packs/Day Years Used Date Smoking Tobacco: Never Smokeless Tobacco: Never Alcohol Use Standard Drinks/Week Comments No 0 (1 standard drink = 0.6 oz pur e alcohol) Interpersonal Safety Answer Date Record ed Physical Abuse Unrecognized value 06/14/2025 Verbal Abuse Unrecognized value 06/14/2025 Comments No Sex and Gender Information Value Date Recorded Sex Assigned at Not on file Legal Sex Female 3:57 AM EST Gender Identity Not on file Sexual Orientation Not on file Travel History Travel Start Travel End [facility] 05/12/2025 06/12/2025 documented as of this encounter Last Filed Vital Signs Vital Sign Reading Time Taken Comments Blood Pressure 126/78 07/01/2025 1:00 PM EDT Pulse 96 07/01/2025 1:00 PM EDT Temperature 36.6 C (97.9 F) 07/01/2025 1:00 PM EDT Respiratory Rate 18 07/01/2025 1:00 PM EDT Oxygen Saturation 98% 07/01/2025 1:00 PM EDT Inhaled Oxygen Concentration - - Weight 85.3 kg (188 lb) 07/01/2025 1:00 PM EDT Height 162.6 cm (5' 4 ) 07/01/2025 1:00 PM EDT Body Mass Index 32.27 07/01/2025 1:00 PM EDT documented in this encounter Functional Status * [...] Entry Date Author No 08/28/2024 1:36 PM Juan Painting RN documented in this encounter Ordered Prescriptions Prescription Sig Dispense Quantity Refills Last Filled Start Date End Date azithromycin (ZITHROMAX) 250 mg tablet Take 2 tablets (500 mg total) by mouth 1 (one) time each day for 1 day, THEN 1 tablet (250 mg total) 1 (one) time each day for 4 days. 6 each 07/01/2025 documented in this encounter Progress Notes * Charo Chakraborty MD - 07/01/2025 1:00 PM EDTAssociated Problem(s): Asthma * Charo Chakraborty MD - 07/01/2025 1:00 PM EDTAssociated Problem(s): Diabetes mellitus type 2 with neurological manifestations ([facility] V24, [facility] V28) Orders: Hemoglobin A1c; Future * Charo Chakraborty MD - 07/01/2025 1:00 PM EDT Images from the original note were not included. CHIEF COMPLAINT: Medicare Annual Wellness Visit Initial IDENTIFIER: Jazlyn Vargas is a 69 y.o. old female. HPI: Patient was recently in the emergency room for upper respiratory symptoms, was prescribed prednisone pack. Today she is concerned about cough and low-grade fever, rapid strep and flu negative today. ROS: GENERAL: No malaise, significant weight loss [...] Patient Active Problem List Diagnosis Date Noted Asthma exacerbation 06/13/2025 Abdominal pain 07/29/2024 Vertigo 01/31/2021 Hot flashes 11/17/2020 Pain of upper abdomen 11/17/2020 Palpitations 11/17/2020 Tubular adenoma 11/17/2020 Allergic conjunctivitis, bilateral 10/03/2020 Epistaxis 10/03/2020 Acute midline low back pain without sciatica 06/15/2020 Spondylosis of lumbar region without myelopathy or radiculopathy 06/15/2020 Severe obesity (BMI 35.0-39.9) with comorbidity (CMS/[facility] V24, [facility] V28) 02/02/2019 Constipation 04/23/2018 TONY (obstructive sleep apnea) 03/25/2018 Anxiety 03/10/2018 Depression 03/10/2018 Hypertension 03/10/2018 Hypertriglyceridemia 03/10/2018 Insomnia 03/10/2018 Perennial allergic rhinitis 03/10/2018 Urinary incontinence 03/10/2018 Venous insufficiency 03/10/2018 Vitamin D deficiency 03/10/2018 GERD (gastroesophageal reflux disease) 02/19/2018 Asthma 02/18/2018 Chronic obstructive pulmonary disease (COPD) ([facility] [place]24, [facility] V28) 02/18/2018 Diabetes mellitus type 2 with neurological manifestations ([facility] V24, [facility] V28) 02/18/2018 Panic attack 04/08/2017 Osteoarthrosis 05/17/2015 Surgical History[1] SOCIAL HISTORY: Social History Tobacco Use Smoking status: Never Smokeless tobacco: Never Substance Use Topics Alcohol use: No FAMILY HISTORY: Family History[2] Family Status Relation Name Status Mother Father Sister Brother (Not Specified) Neg Hx (Not Specified) No partnership data on file MEDICATIONS DISCONTINUED/REORDERED: There are no discontinued medications. ACTIVE MEDICATIONS: Medications Taking[3] ALLERGIES: Allergies[4] PHYSICAL EXAM: Visit Vitals BP 126/78 (BP Location: Right arm, Patient Position: Sitting, BP Cuff Size: Adult) Pulse 96 Temp 36.6 ??C (97.9 ??F) (Temporal) Resp 18 Ht 1.626 m (64 ) Wt 85.3 kg (188 lb) SpO2 98% BMI 32.27 kg/m?? OB Status Hysterectomy Smoking Status Never BSA 1.91 m?? APPEARANCE: Alert and in no acute distress NECK: Neck supple, no adenopathy, thyroid symmetric and of normal size HEART: RRR with normal S1 and S2, no murmurs, no gallops, no JVD appreciated LUNG: clear to auscultation ABDOMEN: Bowel sounds normoactive, no bruits, soft, non-tender, without organomegaly or palpable masses SKIN: Skin color, texture, turgor normal. No rashes or lesions. LABS/IMAGING: Admission on 06/12/2025, Discharged on 06/14/2025 Component Date Value Ref Range Status Sodium 06/12/2025 139 133 - 145 mmol/L Final Potassium 06/12/2025 4.0 3.5 - 5.5 mmol/L Final Chloride 06/12/2025 106 96 - 110 mmol/L Final CO2 06/12/2025 27 21 - 32 mmol/L Final Anion Gap 06/12/2025 6 3 - 11 Final Glucose 06/12/2025 144 (H) 70 - 100 mg/dL Final BUN 06/12/2025 12 5 - 25 mg/dL Final Creatinine 06/12/2025 0.67 0.50 - 1.10 mg/dL Final eGFR 06/12/2025 95 >=60 mL/min/1.73m2 Final BUN/Creatinine Ratio 06/12/2025 17.9 Final Calcium 06/12/2025 9.0 8.5 - 10.5 mg/dL Final AST (SGOT) 06/12/2025 20 10 - 42 unit/L Final ALT (SGPT) 06/12/2025 33 10 - 60 unit/L Final Alkaline Phosphatase 06/12/2025 98 42 - 121 unit/L Final Total Protein 06/12/2025 6.6 6.0 - 8.0 g/dL Final Albumin 06/12/2025 3.4 3.2 - 5.0 g/dL Final Total Bilirubin 06/12/2025 0.2 0.0 - 1.4 mg/dL Final High Sensitivity Troponin I 06/12/2025 <3 <=54 ng/L Final Ventricular Rate ECG 06/12/2025 101 BPM Final Atrial Rate 06/12/2025 101 BPM Final P-R Interval 06/12/2025 152 ms Final QRS Duration 06/12/2025 82 ms Final Q-T Interval 06/12/2025 370 ms Final QTc 06/12/2025 479 ms Final P Wave [place] 06/12/2025 51 degrees Final R [place] 06/12/2025 -22 degrees Final T [place] 06/12/2025 40 degrees Final ECG Interpretation 06/12/2025 Final Value:Sinus tachycardia When compared with ECG of 05-NOV-2024 10:41, No significant change was found Confirmed by LOIS PEREZ ([id number]) on 06/13/2025 12:10:23 AM BNP 06/12/2025 2 <=100 pcg/mL Final Magnesium 06/12/2025 3.8 (H) 1.9 - 2.6 mg/dL Final Lipase 06/12/2025 166 (H) 13 - 75 unit/L Final Influenza A PCR 06/12/2025 Not Detected Not Detected Final Influenza B PCR 06/12/2025 Not Detected Not Detected Final RSV PCR 06/12/2025 Not Detected Not Detected Final SARS COV-2 06/12/2025 Not Detected Not Detected Final Procalcitonin 06/12/2025 <0.02 <=0.16 ng/mL Final WBC 06/12/2025 6.0 4.8 - 10.8 K/mcL Final RBC 06/12/2025 4.30 3.80 - 4.80 M/mcL Final Hemoglobin 06/12/2025 12.8 11.5 - 16.0 g/dL Final Hematocrit 06/12/2025 38.6 35.0 - 47.0 % Final MCV 06/12/2025 90.4 79.0 - 98.0 FL Final MCH 06/12/2025 30.0 27.0 - 32.0 pcg Final MCHC 06/12/2025 33.2 32.0 - 37.0 g/dL Final RDW 06/12/2025 12.7 11.0 - 15.0 % Final Platelets 06/12/2025 198 130 - 400 K/mcL Final MPV 06/12/2025 10.3 7.0 - 11.0 FL Final NRBC 06/12/2025 0.0 <1.0 % Final NRBC Absolute 06/12/2025 0.00 <0.10 K/mcL Final Neutrophils Relative 06/12/2025 45.2 % Final Lymphocytes Relative 06/12/2025 41.8 % Final Monocytes Relative 06/12/2025 7.7 % Final Eosinophils Relative 06/12/2025 4.3 % Final Basophils Relative 06/12/2025 0.8 % Final Immature Granulocytes Relative 06/12/2025 0.2 % Final Neutrophils Absolute 06/12/2025 2.71 1.50 - 7.00 K/mcL Final Lymphocytes Absolute 06/12/2025 2.51 1.00 - 5.00 K/mcL Final Monocytes Absolute 06/12/2025 0.46 0.20 - 1.00 K/mcL Final Eosinophils Absolute 06/12/2025 0.26 0.00 - 0.50 K/mcL Final Basophils Absolute 06/12/2025 0.05 0.00 - 0.20 K/mcL Final Immature Granulocytes Absolute 06/12/2025 0.01 0.00 - 0.03 K/mcL Final Extra Tube 06/12/2025 Hold for add-ons. Final Sodium 06/13/2025 138 133 - 145 mmol/L Final Potassium 06/13/2025 4.8 3.5 - 5.5 mmol/L Final Chloride 06/13/2025 104 96 - 110 mmol/L Final CO2 06/13/2025 26 21 - 32 mmol/L Final Anion Gap 06/13/2025 8 3 - 11 Final Glucose 06/13/2025 242 (H) 70 - 100 mg/dL Final BUN 06/13/2025 13 5 - 25 mg/dL Final Creatinine 06/13/2025 0.68 0.50 - 1.10 mg/dL Final eGFR 06/13/2025 94 >=60 mL/min/1.73m2 Final BUN/Creatinine Ratio 06/13/2025 19.1 Final Calcium 06/13/2025 9.0 8.5 - 10.5 mg/dL Final WBC 06/13/2025 8.6 4.8 - 10.8 K/mcL Final RBC 06/13/2025 4.50 3.80 - 4.80 M/mcL Final Hemoglobin 06/13/2025 13.1 11.5 - 16.0 g/dL Final Hematocrit 06/13/2025 41.0 35.0 - 47.0 % Final MCV 06/13/2025 90.9 79.0 - 98.0 FL Final MCH 06/13/2025 29.0 27.0 - 32.0 pcg Final MCHC 06/13/2025 32.0 32.0 - 37.0 g/dL Final RDW 06/13/2025 12.6 11.0 - 15.0 % Final Platelets 06/13/2025 205 130 - 400 K/mcL Final MPV 06/13/2025 10.7 7.0 - 11.0 FL Final NRBC 06/13/2025 0.0 <1.0 % Final NRBC Absolute 06/13/2025 0.00 <0.10 K/mcL Final Neutrophils Relative 06/13/2025 90.5 % Final Lymphocytes Relative 06/13/2025 8.1 % Final Monocytes Relative 06/13/2025 0.7 % Final Eosinophils Relative 06/13/2025 0.0 % Final Basophils Relative 06/13/2025 0.2 % Final Immature Granulocytes Relative 06/13/2025 0.5 % Final Neutrophils Absolute 06/13/2025 7.76 (H) 1.50 - 7.00 K/mcL Final Lymphocytes Absolute 06/13/2025 0.69 (L) 1.00 - 5.00 K/mcL Final Monocytes Absolute 06/13/2025 0.06 (L) 0.20 - 1.00 K/mcL Final Eosinophils Absolute 06/13/2025 0.00 0.00 - 0.50 K/mcL Final Basophils Absolute 06/13/2025 0.02 0.00 - 0.20 K/mcL Final Immature Granulocytes Absolute 06/13/2025 0.04 (H) 0.00 - 0.03 K/mcL Final Glucose POCT 06/13/2025 312 (H) 70 - 100 mg/dL Final POCT Comment 06/13/2025 RN Notified Final Adenovirus Detection by PCR 06/13/2025 Not Detected Not Detected Final Influenza A PCR 06/13/2025 Not Detected Not Detected Final Influenza B PCR 06/13/2025 Not Detected Not Detected Final Coronavirus 229E 06/13/2025 Not Detected Not Detected Final Coronavirus HKU1 06/13/2025 Not Detected Not Detected Final Coronavirus OC43 06/13/2025 Not Detected Not Detected Final Coronavirus NL63 06/13/2025 Not Detected Not Detected Final Parainfluenza Virus 1 06/13/2025 Not Detected Not Detected Final Parainfluenza Virus 2 06/13/2025 Not Detected Not Detected Final Parainfluenza Virus 3 06/13/2025 Not Detected Not Detected Final Parainfluenza Virus 4 06/13/2025 Not Detected Not Detected Final RSV PCR 06/13/2025 Not Detected Not Detected Final Human Metapneumovirus A and B 06/13/2025 Not Detected Not Detected Final Rhinovirus/Enterovirus 06/13/2025 Detected (A) Not Detected Final Bordetella pertussis 06/13/2025 Not Detected Not Detected Final Bordetella parapertussis 06/13/2025 Not Detected Not Detected Final Mycoplasma pneumo by PCR 06/13/2025 Not Detected Not Detected Final Chlamydia pneumoniae 06/13/2025 Not Detected Not Detected Final SARS COV-2 06/13/2025 Not Detected Not Detected Final Glucose POCT 06/13/2025 259 (H) 70 - 100 mg/dL Final Glucose POCT 06/13/2025 250 (H) 70 - 100 mg/dL Final Glucose POCT 06/13/2025 275 (H) 70 - 100 mg/dL Final POCT Comment 06/13/2025 RN Notified Final WBC 06/14/2025 11.9 (H) 4.8 - 10.8 K/mcL Final RBC 06/14/2025 4.40 3.80 - 4.80 M/mcL Final Hemoglobin 06/14/2025 13.1 11.5 - 16.0 g/dL Final Hematocrit 06/14/2025 39.2 35.0 - 47.0 % Final MCV 06/14/2025 88.9 79.0 - 98.0 FL Final MCH 06/14/2025 29.7 27.0 - 32.0 pcg Final MCHC 06/14/2025 33.4 32.0 - 37.0 g/dL Final RDW 06/14/2025 12.7 11.0 - 15.0 % Final Platelets 06/14/2025 211 130 - 400 K/mcL Final MPV 06/14/2025 10.3 7.0 - 11.0 FL Final NRBC 06/14/2025 0.0 <1.0 % Final NRBC Absolute 06/14/2025 0.00 <0.10 K/mcL Final Neutrophils Relative 06/14/2025 67.9 % Final Lymphocytes Relative 06/14/2025 25.6 % Final Monocytes Relative 06/14/2025 5.7 % Final Eosinophils Relative 06/14/2025 0.3 % Final Basophils Relative 06/14/2025 0.3 % Final Immature Granulocytes Relative 06/14/2025 0.2 % Final Neutrophils Absolute 06/14/2025 8.09 (H) 1.50 - 7.00 K/mcL Final Lymphocytes Absolute 06/14/2025 3.05 1.00 - 5.00 K/mcL Final Monocytes Absolute 06/14/2025 0.68 0.20 - 1.00 K/mcL Final Eosinophils Absolute 06/14/2025 0.03 0.00 - 0.50 K/mcL Final Basophils Absolute 06/14/2025 0.04 0.00 - 0.20 K/mcL Final Immature Granulocytes Absolute 06/14/2025 0.02 0.00 - 0.03 K/mcL Final Extra Tube 06/14/2025 Hold for add-ons. Final Glucose POCT 06/14/2025 170 (H) 70 - 100 mg/dL Final Glucose POCT 06/14/2025 234 (H) 70 - 100 mg/dL Final Appointment on 01/15/2025 Component Date Value Ref Range Status Lipase 01/15/2025 201 (H) 13 - 75 unit/L Final Cholesterol 01/15/2025 173 0 - 200 mg/dL Final Triglycerides 01/15/2025 121 0 - 150 mg/dL Final HDL 01/15/2025 48 >=40 mg/dL Final LDL Calculated 01/15/2025 101 (H) 0 - 100 mg/dL Final VLDL Cholesterol Tino 01/15/2025 24.2 mg/dL Final Non HDL Chol. (LDL+VLDL) 01/15/2025 125 <145 mg/dL Final Chol/HDL Ratio 01/15/2025 3.6 0.0 - 4.4 Final Creatinine, Urine 01/15/2025 87.0 mg/dL Final Microalb, Ur 01/15/2025 6.4 0.0 - 29.0 mg/L Final Microalb/Creat Ratio 01/15/2025 7 <30 mg/g creat Final Ferritin 01/15/2025 50 8 - 252 ng/mL Final Iron 01/15/2025 103 40 - 150 mcg/dL Final TIBC 01/15/2025 326 250 - 450 mcg/dL Final Iron Saturation 01/15/2025 32 15 - 50 % Final TSH 01/15/2025 0.47 0.40 - 4.00 mcIU/mL Final Hemoglobin A1C 01/15/2025 8.3 (H) <6.5 % Final Mean Bld Glu Estim. 01/15/2025 192 mg/dL Final Medication and lab orders: Orders Placed This Encounter Procedures Hemoglobin A1c Other orders: None IMPRESSION: 1. Mild intermittent asthma without complication 2. Diabetes mellitus type 2 with neurological manifestations ([facility] V24, [facility] V28) 3. Encounter for subsequent annual wellness visit (AWV) in Medicare patient PLAN: Will prescribe a Z-Evelio, rapid strep and rapid flu negative today Patient will give me a call if symptoms gets worse otherwise follow-up as scheduled or sooner as needed Charo Chakraborty MD on 07/01/2025 at 7:28 PM EDT Medicare Annual Wellness Visit Note Patient Name: Jazlyn Vargas Date of : 1955 Race: Other Ethnicity: [place] Date of Service: 07/01/2025 Patient Care Team: Charo Chakraborty MD as PCP - General (Internal Medicine) Lacy Gonzalez RD as Dietitian (Nutrition) Jazlyn is a 69 y.o. female presenting for Medicare Annual Wellness Visit Initial HPI Problem List[5] Allergies[6] Current Outpatient Medications Medication Instructions albuterol HFA (PROAIR HFA ; PROVENTIL HFA ; VENTOLIN HFA) 90 mcg/actuation inhaler INHALE TWO PUFFSBY MOUTH EVERY 6 HOURS IF NEEDED FOR WHEEZING (BULK) alcohol swabs pads, medicated USE FOUR TIMES A DAY BEFORE INSULIN INJECTION AND TEST BLOOD SUGAR (BULK) aluminum-magnesium hydroxide-simethicone (Mintox Maximum Strength) 400-400-40 mg/5 mL suspension 5 mL ammonium lactate (AMLACTIN) 12 % cream Topical, As needed azithromycin (ZITHROMAX) 250 mg tablet Take 2 tablets (500 mg total) by mouth 1 (one) time each dayfor 1 day, THEN 1 tablet (250 mg total) 1 (one) time each day for 4 days. BD Ultra-Fine Short Pen Needle 31 gauge x 5/16 needle USE TO INJECT INSULIN FOUR TIMES A DAY (BULK) blood sugar diagnostic (OneTouch Verio test strips) test strip Use as instructed cetirizine (ZyrTEC) 10 mg tablet TAKE ONE TABLET BY MOUTH EVERY DAY ^1R1 cholecalciferol (VITAMIN D-3) 50 mcg (2,000 unit) capsule TAKE 1 CAPSULE BY MOUTH DAILY ^1R2 cyclobenzaprine (FLEXERIL) 10 mg tablet TAKE ONE TABLET BY MOUTH THREE TIMES A DAY NEEDED FOR MUSCLE SPASMS (TRAYS) ^1R1,1R2,1R4 cyclobenzaprine (FLEXERIL) 10 mg, 3 times daily PRN diphenhydrAMINE (BENADRYL) 25 mg capsule TAKE ONE CAPSULE BY MOUTH EVERY 6 HOURS NEEDED FOR ITCHING (VIAL) Dupixent Pen 300 mg, Every 14 days EPINEPHrine (EPIPEN) 0.3 mg/0.3 mL injection INJECT 1 SYRINGE INTRAMUSCULARLY NEEDED FOR ANAPHYLAXIS (BULK) estradioL (ESTRACE) 0.01 % (0.1 mg/gram) vaginal cream APPLY A THIN LAYER TO VAGINA / VULVA TWO TIMES WEEKLY AT BEDTIME (BULK) FLUoxetine (PROzac) 20 mg capsule TAKE ONE CAPSULE BY MOUTH EVERY DAY ^1R1 fluticasone propionate (FLONASE) 50 mcg/actuation nasal spray 2 sprays, Each Nostril, Daily furosemide (LASIX) 20 mg tablet TAKE ONE TABLET BY MOUTH EVERY DAY ^1R1 gabapentin (NEURONTIN) 800 mg, 2 times daily glipiZIDE (GLUCOTROL) 10 mg tablet TAKE ONE TABLET BY MOUTH TWICE A DAY BEFORE MEALS ^1R1,1R4 HealthyLax 17 gram packet TAKE THE CONTENTS OF ONE PACKET BY MOUTH ONCE DAILY (BULK) HumaLOG KwikPen Insulin 100 unit/mL injection pen INJECT 10 UNITS UNDER THE SKIN THREE TIMES A DAY BEFORE MEALS (BULK) hydrOXYzine HCL (ATARAX) 50 mg tablet TAKE ONE TABLET BY MOUTH TWICE A DAY (VIAL) incontinence pad, liner, disp pad 1 each, miscellaneous, Daily ipratropium-albuteroL (DUONEB) 0.5-2.5 mg/3 mL nebulizer solution 3 mL, nebulization, 4 times daily lidocaine (LIDODERM) 5 % patch 1 patch, Daily lidocaine-prilocaine (EMLA) 2.5-2.5 % cream APPLY TOPICALLY ONE TIME FOR 1 DOSE loperamide (IMODIUM) 2 mg losartan (COZAAR) 50 mg, oral, Daily magnesium oxide (MAG-OX) 400 mg, oral, Daily meloxicam (MOBIC) 7.5 mg tablet TAKE ONE TABLET BY MOUTH EVERY DAY ^1R1 Mounjaro 15 mg/0.5 mL injection INJECT 0.5ML (15MG TOTAL) UNDER THE SKIN EVERY 7 DAYS (BULK) omega-3 acid ethyl esters (LOVAZA) 1 g, oral, 2 times daily pantoprazole (PROTONIX) 40 mg EC tablet TAKE ONE TABLET BY MOUTH EVERY DAY - DO NOT CRUSH, CHEW, ORSPLIT ^1R1 pilocarpine (SALAGEN (PILOCARPINE)) 5 mg, oral, 2 times daily riboflavin (VITAMIN B2) 400 mg, Daily roflumilast 250 mcg tablet TAKE ONE TABLET BY MOUTH EVERY DAY ^1R4 simethicone (MYLICON,GAS-X) 180 mg capsule TAKE ONE CAPSULE BY MOUTH TWICE A DAY (VIAL) sucralfate (CARAFATE) 100 mg/mL suspension TAKE 10ML BY MOUTH EVERY 6 HOURS BEFORE MEALS AND AT BEDTIME (BULK) SUMAtriptan (IMITREX) 25 mg, oral, Once as needed, May repeat dose once in 2 hours if no relief. Donot exceed 2 doses in 24 hours. triamcinolone (KENALOG) 0.1 % cream APPLY TO AFFECTED AREA(S) TWO TIMES A DAY (BULK) zolpidem (AMBIEN) 10 mg, Nightly PRN Medical History[7] Surgical History[8] Social History[9] Family History[10] There is no immunization history on file for this patient. Health Maintenance Topic Date Due Colorectal Cancer Screening: Colonoscopy Never done Diabetes: Annual Foot Exam Never done Diabetes: Annual Retina Eye Exam Never done DTaP,Tdap,and Td Vaccines (1 - Tdap) Never done Zoster Vaccines (1 of 2) Never done RSV Immunization Adult Patients (1 - Risk 60-74 years 1-dose series) Never done Hepatitis C Screening Never done Social Influencers of Health Screening Never done Medicare Annual Wellness Visit Never done Influenza Vaccine (1) Never done COVID-19 Vaccine ( - season) Never done Diabetes: Blood Sugar Control Test (HGBA1C) 07/17/2025 Diabetes: Annual Urine Albumin-Creatinine Ratio (uACR) 01/15/2026 Diabetes: Annual GFR (Glomerular Filtration Rate) 06/13/2026 Hypertension/CHF/CAD Annual BMP Blood Test 06/13/2026 Falls Risk Assessment 06/14/2026 Breast Cancer Screening 10/22/2026 Cholesterol Screening (Lipid Panel) 01/15/2030 Osteoporosis Screening (Bone Density Screening) 05/29/2033 Pneumococcal Vaccine: 50+ Years Completed Depression Screening Completed HIB Vaccines Aged Out Hepatitis B Vaccines Aged Out IPV Vaccines Aged Out Hepatitis A Vaccines Aged Out MMR Vaccines Aged Out Varicella Vaccines Aged Out Meningococcal ACWY Vaccine Aged Out Meningococcal B Vaccine Aged Out HPV Vaccines Aged Out RSV Immunization Patients Under 20 months Aged Out Cognitive Function Assessment: Cognitive screening performed. Fall Screening: Depression Screening Over the last 2 weeks, how often have you been bothered by little interest or pleasure in doing things?: Not at all Over the last 2 weeks, how often have you been bothered by feeling down, depressed, or hopeless?: Not at all Depression Risk: 0 PHQ9 Full Set of Questions Over the last 2 weeks, how often have you been bothered by little interest or pleasure in doing things?: Not at all Over the last 2 weeks, how often have you been bothered by feeling down, depressed, or hopeless?: Not at all PHQ -9 Depression Risk Score: 0 Screening Result: Negative Risk Category: Negative Activity of Daily Living (ADLs): Activity of Daily Living (ADLs) Are you able to independently move around your home, with or without an assistive device such as a walker or wheelchair?: Yes Do you need help from others grooming, bathing, or dressing?: No Do you need help from others with eating?: No Do you need help from others for toileting?: No Do you experience urinary incontinence?: No Do you experience fecal incontinence?: No Instrumental Activities of Daily Living (IADLs): Do you need help with using the telephone?: No Do you need help with shopping?: No Do you need help with food preparation?: No Do you need help with housekeeping?: No Do you need help with laundry?: No Do you need help handling finances?: No Do you drive?: No Do you manage your own medication?: Yes, independent Functional Ability and Level of Safety Review Health Status: Have you been hospitalized since we last saw you?: Yes If you use medical equipment (e.g.: CPAP Machine), do you have a preferred supplier?: No In general, the patient reports health as: good In general, patient reports life as: good Patient reports sleep pattern as: up all night Have you been bothered by sexual problems? : No Have you seen a dentist in the last year?: No Physical Activity: Do you exercise for about 20 minutes or more three days a week?: No Nutritional Assessment: Do you eat a balanced diet including daily serving of fruits, vegetables, and whole grains?: Yes, always Safety: Safety: Does the patient live alone?: No Does your home have throw rugs, poor lighting, or a slippery bathtub/shower?: No Does your home have functioning smoke detection?: Yes Do you use any assistive devices?: No Do you always fasten your seatbelt?: Yes Psychosocial Risks: Has stress been negatively affecting your life?: No Has anger been negatively affecting your life?: No Have you been bothered by unusual fatigue?: No Review of Systems Objective BP 126/78 (BP Location: Right arm, Patient Position: Sitting, BP Cuff Size: Adult) Pulse 96 Temp 36.6 ??C (97.9 ??F) (Temporal) Resp 18 Ht 1.626 m (64 ) Wt 85.3 kg (188 lb) BMI 32.27 kg/m?? SpO2: 98 % Hearing: No data recorded Vision Screening: Required for Medicare Initial Preventative Physical Exam (IPPE) No data recorded Physical Exam Patient presented today for an Subsequent Medicare Wellness Visit with management of chronic condition(s). Assessment & Plan Mild intermittent asthma without complication Diabetes mellitus type 2 with neurological manifestations ([facility] V24, [facility] V28) Orders: Hemoglobin A1c; Future Encounter for subsequent annual wellness visit (AWV) in Medicare patient Risk Assessments: Body mass index is 32.27 kg/m??. The BMI is above average. The patient received dietary education and exercise education because they have an above normal BMI. Fall Risk: . . Discussed: not rushing through tasks PHQ -9 Depression Risk Score: 0 Depression plan: Screen was negative Pain Medication: Patient does not take any opioid medications Advance Care Planning Advance care planning is the process of planning for future medical care in case you are unable to make your own medical decisions. It involves choosing a health care payroll representative and reviewing future health care directives. The patient Advance Directives: does not have advance directives or surrogate decision maker.. Advance directives reviewed and/or discussed: Patient is not interested in discussing advance care planning or health care agent at this time. Health Maintenance Due Topic Date Due Colorectal Cancer Screening: Colonoscopy Never done Diabetes: Annual Foot Exam Never done Diabetes: Annual Retina Eye Exam Never done DTaP,Tdap,and Td Vaccines (1 - Tdap) Never done Zoster Vaccines (1 of 2) Never done RSV Immunization Adult Patients (1 - Risk 60-74 years 1-dose series) Never done Hepatitis C Screening Never done Social Influencers of Health Screening Never done Medicare Annual Wellness Visit Never done Influenza Vaccine (1) Never done COVID-19 Vaccine (1 - 2023-25 season) Never done The following vaccine(s) were recommended: Vaccines Recommended: Patient up to date on all vaccines Patient Instructions (the written plan) as discussed and documented in our visit today. Charo Chakraborty MD INTERNAL MEDICINE - [address] [facility] [id number] Dept: [phone] Dept [1] Past Surgical History: Procedure Laterality Date ANKLE SURGERY Right 2017 PROCEDURE: HISTORICAL ANKLE SURGERY; COMMENT: medial malleolar fracture APPENDECTOMY SECTION PROCEDURE: HISTORICAL DELIVERY; COMMENT: x3 CHOLECYSTECTOMY COLONOSCOPY 05/24/2020 PROCEDURE: HISTORICAL COLONOSCOPY; COMMENT: tubular adenoma ESOPHAGOGASTRODUODENOSCOPY PROCEDURE: CO EGD TRANSORAL BIOPSY SINGLE/MULTIPLE; COMMENT: Performed in February 2021 during hospitalization HERNIA REPAIR PROCEDURE: HISTORICAL HERNIA REPAIR/ING HYSTERECTOMY PROCEDURE: HISTORICAL HYSTERECTOMY [2] Family History Problem Relation Name Age of Onset Heart failure Mother Asthma Mother Heart failure Father Breast cancer Sister 45.00 ag 60 Asthma Brother Colon cancer Neg Hx Ovarian cancer Neg Hx Prostate cancer Neg Hx [3] Outpatient Medications Marked as Taking for the 07/01/25 encounter (Office Visit) with Charo Chakraborty MD Medication Sig Dispense Refill albuterol HFA (PROAIR HFA ; PROVENTIL HFA ; VENTOLIN HFA) 90 mcg/actuation inhaler INHALE TWO PUFFSBY MOUTH EVERY 6 HOURS IF NEEDED FOR WHEEZING (BULK) 8.5 g 5 alcohol swabs pads, medicated USE FOUR TIMES A DAY BEFORE INSULIN INJECTION AND TEST BLOOD SUGAR (BULK) 100 each 5 aluminum-magnesium hydroxide-simethicone (Mintox Maximum Strength) 400-400-40 mg/5 mL suspension Take 5 mL by mouth. ammonium lactate (AMLACTIN) 12 % cream Apply topically if needed for dry skin. 560 g 2 BD Ultra-Fine Short Pen Needle 31 gauge x 5/16 needle USE TO INJECT INSULIN FOUR TIMES A DAY (BULK) 100 each 11 blood sugar diagnostic (OneTouch Verio test strips) test strip Use as instructed 100 strip 1 cetirizine (ZyrTEC) 10 mg tablet TAKE ONE TABLET BY MOUTH EVERY DAY ^1R1 30 tablet 5 cholecalciferol (VITAMIN D-3) 50 mcg (2,000 unit) capsule TAKE 1 CAPSULE BY MOUTH DAILY ^1R2 30 capsule 9 cyclobenzaprine (FLEXERIL) 10 mg tablet TAKE ONE TABLET BY MOUTH THREE TIMES A DAY NEEDED FOR MUSCLE SPASMS (TRAYS) ^1R1,1R2,1R4 90 tablet 5 cyclobenzaprine (FLEXERIL) 5 mg tablet Take 2 tablets (10 mg total) by mouth 3 (three) times a day if needed for muscle spasms. diphenhydrAMINE (BENADRYL) 25 mg capsule TAKE ONE CAPSULE BY MOUTH EVERY 6 HOURS NEEDED FOR ITCHING (VIAL) 30 capsule 1 Dupixent Pen 300 mg/2 mL pen Inject 2 mL (300 mg total) under the skin every 14 (fourteen) days. EPINEPHrine (EPIPEN) 0.3 mg/0.3 mL injection INJECT 1 SYRINGE INTRAMUSCULARLY NEEDED FOR ANAPHYLAXIS (BULK) 2 each 1 estradioL (ESTRACE) 0.01 % (0.1 mg/gram) vaginal cream APPLY A THIN LAYER TO VAGINA / VULVA TWO TIMES WEEKLY AT BEDTIME (BULK) 42.5 g 3 FLUoxetine (PROzac) 20 mg capsule TAKE ONE CAPSULE BY MOUTH EVERY DAY ^1R1 30 capsule 5 fluticasone propionate (FLONASE) 50 mcg/actuation nasal spray Administer 2 sprays into each nostril1 (one) time each day. 48 g 10 furosemide (LASIX) 20 mg tablet TAKE ONE TABLET BY MOUTH EVERY DAY ^1R1 30 tablet 5 gabapentin (NEURONTIN) 800 mg tablet Take 1 tablet (800 mg total) by mouth 2 (two) times a day. glipiZIDE (GLUCOTROL) 10 mg tablet TAKE ONE TABLET BY MOUTH TWICE A DAY BEFORE MEALS ^1R1,1R4 60 tablet 5 HealthyLax 17 gram packet TAKE THE CONTENTS OF ONE PACKET BY MOUTH ONCE DAILY (BULK) 30 packet 11 HumaLOG KwikPen Insulin 100 unit/mL injection pen INJECT 10 UNITS UNDER THE SKIN THREE TIMES A DAY BEFORE MEALS (BULK) 9 mL 5 hydrOXYzine HCL (ATARAX) 50 mg tablet TAKE ONE TABLET BY MOUTH TWICE A DAY (VIAL) 30 tablet 1 incontinence pad, liner, disp pad 1 each 1 (one) time each day. 100 each 11 ipratropium-albuteroL (DUONEB) 0.5-2.5 mg/3 mL nebulizer solution Take 3 mL by nebulization 4 (four) times a day. 360 mL 11 lidocaine (LIDODERM) 5 % patch Apply 1 patch topically 1 (one) time each day. Remove & discard patch within 12 hours or as directed by MD. lidocaine-prilocaine (EMLA) 2.5-2.5 % cream APPLY TOPICALLY ONE TIME FOR 1 DOSE 30 g 3 loperamide (IMODIUM) 2 mg capsule Take 1 capsule (2 mg total) by mouth. losartan (COZAAR) 50 mg tablet Take 1 tablet (50 mg total) by mouth 1 (one) time each day. 30 tablet 5 magnesium oxide (MAG-OX) 400 mg (241.3 elemental magnesium) tablet Take 1 tablet (400 mg total) by mouth 1 (one) time each day. 30 tablet 5 meloxicam (MOBIC) 7.5 mg tablet TAKE ONE TABLET BY MOUTH EVERY DAY ^1R1 30 tablet 3 Mounjaro 15 mg/0.5 mL injection INJECT 0.5ML (15MG TOTAL) UNDER THE SKIN EVERY 7 DAYS (BULK) 2 mL 3 omega-3 acid ethyl esters (LOVAZA) 1 gram capsule Take 1 capsule (1 g total) by mouth 2 (two) timesa day. 120 capsule 3 pantoprazole (PROTONIX) 40 mg EC tablet TAKE ONE TABLET BY MOUTH EVERY DAY - DO NOT CRUSH, CHEW, ORSPLIT ^1R1 30 tablet 5 pilocarpine (Salagen, pilocarpine,) 5 mg tablet Take 1 tablet (5 mg total) by mouth 2 (two) times aday. 60 each 11 riboflavin (VITAMIN B2) 400 mg tablet Take 1 tablet (400 mg total) by mouth 1 (one) time each day. roflumilast 250 mcg tablet TAKE ONE TABLET BY MOUTH EVERY DAY ^1R4 simethicone (MYLICON,GAS-X) 180 mg capsule TAKE ONE CAPSULE BY MOUTH TWICE A DAY (VIAL) 56 capsule 0 sucralfate (CARAFATE) 100 mg/mL suspension TAKE 10ML BY MOUTH EVERY 6 HOURS BEFORE MEALS AND AT BEDTIME (BULK) 500 mL 7 SUMAtriptan (IMITREX) 25 mg tablet Take 1 tablet (25 mg total) by mouth 1 (one) time if needed for migraine. May repeat dose once in 2 hours if no relief. Do not exceed 2 doses in 24 hours. 27 tablet3 triamcinolone (KENALOG) 0.1 % cream APPLY TO AFFECTED AREA(S) TWO TIMES A DAY (BULK) 60 g 3 zolpidem (AMBIEN) 10 mg tablet Take 1 tablet (10 mg total) by mouth at bedtime as needed. at bedtime for sleep Max Daily Amount: 10 mg [4] Allergies Allergen Reactions Montelukast Other Anixety and restlessness Omalizumab Anaphylaxis Zafirlukast Other Patient reports chest tightness and pain in her lungs like burning. Aspirin Codeine Insulin Aspart Itching Iodinated Contrast Media Other Mepolizumab Itching and eye swelling Metformin Morphine Oxycodone Hallucinations Oxycodone-Acetaminophen Penicillins Pneumococcal Vaccine Prednisone Itching but can take with benadryl and prefers to use this Tramadol Ibuprofen Asthma Asthma exacerbation with excessive use Naproxen Asthma Asthma exacerbation with excessive use [5] Patient Active Problem List Diagnosis Acute midline low back pain without sciatica Allergic conjunctivitis, bilateral Anxiety Asthma Chronic obstructive pulmonary disease (COPD) ([facility] V24, [facility] V28) Constipation Depression Diabetes mellitus type 2 with neurological manifestations ([facility] V24, [facility] V28) Epistaxis GERD (gastroesophageal reflux disease) Hot flashes Hypertension Hypertriglyceridemia Insomnia TONY (obstructive sleep apnea) Osteoarthrosis Abdominal pain Pain of upper abdomen Palpitations Panic attack Perennial allergic rhinitis Severe obesity (BMI 35.0-39.9) with comorbidity ([facility] V24, [facility] V28) Spondylosis of lumbar region without myelopathy or radiculopathy Tubular adenoma Urinary incontinence Venous insufficiency Vertigo Vitamin D deficiency Asthma exacerbation [6] Allergies Allergen Reactions Montelukast Other Anixety and restlessness Omalizumab Anaphylaxis Zafirlukast Other Patient reports chest tightness and pain in her lungs like burning. Aspirin Codeine Insulin Aspart Itching Iodinated Contrast Media Other Mepolizumab Itching and eye swelling Metformin Morphine Oxycodone Hallucinations Oxycodone-Acetaminophen Penicillins Pneumococcal Vaccine Prednisone Itching but can take with benadryl and prefers to use this Tramadol Ibuprofen Asthma Asthma exacerbation with excessive use Naproxen Asthma Asthma exacerbation with excessive use [7] Past Medical History: Diagnosis Date Abdominal pain DX:Abdominal pain Allergic rhinitis 03/10/2018 DX:Allergic rhinitis Anxiety 03/10/2018 DX:Anxiety Asthma 02/18/2018 DX:Asthma Chronic obstructive pulmonary disease (COPD) ([facility] V24, [facility] V28) 02/18/2018 DX:Chronic obstructive pulmonary disease (COPD) (HCC) Depression 03/10/2018 DX:Depression Diabetes mellitus type 2 with neurological manifestations (CMS/HCC V24, [facility] V28) 02/18/2018 DX:Diabetes mellitus type 2 with neurological manifestations (HCC) Diabetic peripheral neuropathy (CMS/HCC V24, [facility] V28) 02/01/2016 DX:Diabetic peripheral neuropathy (HCC) Epigastric pain DX:Epigastric pain GERD (gastroesophageal reflux [...] Vitamin D deficiency 03/10/2018 DX:Vitamin D deficiency [8] Past Surgical History: Procedure Laterality Date ANKLE SURGERY Right 2017 PROCEDURE: HISTORICAL ANKLE SURGERY; COMMENT: medial malleolar fracture APPENDECTOMY SECTION PROCEDURE: HISTORICAL DELIVERY; COMMENT: x3 CHOLECYSTECTOMY COLONOSCOPY 05/24/2020 PROCEDURE: HISTORICAL COLONOSCOPY; COMMENT: tubular adenoma ESOPHAGOGASTRODUODENOSCOPY PROCEDURE: CO EGD TRANSORAL BIOPSY SINGLE/MULTIPLE; COMMENT: Performed in February 2021 during hospitalization HERNIA REPAIR PROCEDURE: HISTORICAL HERNIA REPAIR/ING HYSTERECTOMY PROCEDURE: HISTORICAL HYSTERECTOMY [9] Social History Tobacco Use Smoking status: Never Smokeless tobacco: Never Substance Use Topics Alcohol use: No Drug use: No [10] Family History Problem Relation Name Age of Onset Heart failure Mother Asthma Mother Heart failure Father Breast cancer Sister 45.00 ag 60 Asthma Brother Colon cancer Neg Hx Ovarian cancer Neg Hx Prostate cancer Neg Hx documented in this encounter Plan of Treatment Upcoming Encounters Date Type Department Care Team ([facility] st Contact Info) Description 08/09/2025 2:30 PM EST Office Visit Orthopedic Surgery - [address] [phone] Aquilino Calderon DPM [address] [facility] [address] [place], [place] [id number] 09/16/2025 10:30 AM EST Nutrition Internal Medicine - [place] 175 [facility] [address] [place] [phone] Lacy Gonzalez, RD [address] [place] [address] 11/04/2025 1:15 PM EST Office Visit Internal Medicine - [place] 175 [facility] [address] [place] [phone] Charo Chakraborty MD 175 [facility] [address] [place] [phone] 11/09/2025 9:45 AM EST Office Visit Bariatric Surgery - [place] 175 [facility] [address] [place] [phone] Maira Zurita MD [address] [place] [phone] documented as of this encounter Results * (ABNORMAL) Hemoglobin A1c (07/01/2025 1:35 PM EDT) Hemoglobin A1C 7.6(H) <6.5 % LAB CHEMISTRY METHOD 07/01/2025 10:22 PM EDT [facility] Mean Bld Glu Estim. 171 mg/dL LAB CHEMISTRY METHOD 07/01/2025 10:22 PM EDT [facility] Blood Venous blood specimen / Unknown Venipuncture / Unknown 07/01/2025 1:35 PM EDT 07/01/2025 1:35 PM EDT us Charo Chakraborty MD LAB BLOOD ORDERABLES Final Res ult [facility] [address] [place] [address], documented in this encounter Visit Diagnoses Diagnosis Mild intermittent asthma without complication- Primary Diabetes mellitus type 2 with neurological manifestations ([facility] V24, [facility] V28) Encounter for subsequent annual wellness visit (AWV) in Medicare patient documented in this encounter Additional Health Concerns Infection Onset Date Last Indicated Resolved Time Enterovirus 06/13/2025 06/13/2025 Rhinovirus 06/13/2025 06/13/2025 Assessment Noted Time PHQ-9 Depression Total Score: 0 07/01/20 25 1:00 PM EDT documented as of this encounter Care Teams Fac Engineer Relationship Specialty Start Date End Date Charo Chakraborty MD 175 [facility] [address] [place] [phone] PCP - General Internal Medicine 09/25/24 documented as of this encounter
[2025-07-05 12:59] VITALS: BP 122/66; PULSE 93; O2SAT 97; BMI 33.0
--- NOTE | 2025-07-05 12:59 | MHC.OFFVIS ---
Vital Signs 07/05/25 12:59 Height 5 ft 4 in Weight 192 lb 4 oz BMI 33.0 BP 122/66 Blood Pressure Location Rt brachial Position Sitting Pulse 93 Pulse Source Pulse Oximeter Pulse Oximetry (%) 97 Oxygen Delivery Method Room Air Intake Visit Reasons: R/S 04/19/25 Intake Note: Patient presents follow up TONY/Migraine. Compliance in chart(63/90days, >=4hrs-23%, Average Usage-2hr 19min, Med Pressure- 7.0, Med Leaks-1.5, AHI-1.2). Yesterday she had a strong migraine. patient took medication helped for while then came back later in afternoon. Header Setup Operator Required: Yes Header Setup Operator Language: Emergency Planning And Response Manager Services: Header Setup Operator Present Header Setup Operator Name: Sourav [id number] Information Interpreted: non-clinical & clinical Accompanied by: Self / Same As Patient Allergies naproxen Allergy (Severe, Verified 07/05/25 13:04) Hives egg Allergy (Unknown, Verified 07/05/25 13:04) Stomach Upset acetaminophen (From Percocet) Adverse Reaction (Severe, Verified 07/05/25 13:04) Hallucinations aspirin Adverse Reaction (Severe, Verified 07/05/25 13:04) Hives codeine Adverse Reaction (Severe, Verified 07/05/25 13:04) Itching ibuprofen (From Motrin IB) Adverse Reaction (Severe, Verified 07/05/25 13:04) Hives Iodinated Contrast Media Adverse Reaction (Severe, Verified 07/05/25 13:04) Hypertension mepolizumab (From Nucala) Adverse Reaction (Severe, Verified 07/05/25 13:04) Itching metformin Adverse Reaction (Severe, Verified 07/05/25 13:04) Difficulty Breathing montelukast (From Singulair) Adverse Reaction (Severe, Verified 07/05/25 13:04) Anxiety morphine Adverse Reaction (Severe, Verified 07/05/25 13:04) Hallucinations omalizumab (From Xolair) Adverse Reaction (Severe, Verified 07/05/25 13:04) Anaphylaxis oxycodone Adverse Reaction (Severe, Verified 07/05/25 13:04) Hallucinations pneumococcal vaccine Adverse Reaction (Severe, Verified 07/05/25 13:04) Hives prednisone Adverse Reaction (Severe, Verified 07/05/25 13:04) Itching tramadol Adverse Reaction (Severe, Verified 07/05/25 13:04) Hives accolate Adverse Reaction (Severe, Uncoded 10/30/24 11:11) Chest Pain PCN Adverse Reaction (Severe, Uncoded 10/30/24 11:11) Hives HPI Comments Details: 69 year old Kyrgyz speaking female is here for follow up of tony and chronic migraines. Header Setup Operator on IPAD helps with history. TONY Compliance Report 11/2024-02/2025 Total usage 88/90 days >4 hours 69 days 77% Avg daily use 4 hours and 37 min Press [id number] Leaks median 0.8 and AHI is 0.8/hr She washes her mask, rinses hoses, changes filters and fills reservoir with water. She is still grieving the loss of her , her sister and son are now living with her. She just started seeing a therapist. Her sleep is fragmented, goes to sleep at 10pm-12pm and wakes up for one hour and can not fall asleep and requests a sleep aide today. She has 3-4 episodes of migraines per week 02/02 to 07/09 in severity with pressure on top of the head. This can last for days, and worsens with lack of sleep. She has photophobia, phonophobia with sensitivity to smells and sounds. She has dizziness, as if the room is spinning, and loses her balance and needs to sit down. Denies n/v. She turns off the lights and lays down for a few minutes which improves her migraines. She has anxiety and asthma on dupixent 300mg 2mL subq 2 weeks. She has moderate to severe asthma and palpitations so is not able to take Sumatriptan. She has a history of allergies to pet dander, pine, pollen, and environmental pollutants, which causes tearing and burning of the eyes. Her mood is low, she is tired and feels better when she sleeps, sometimes her mood is irritable. RLS symptoms: She has paresthesias bilaterally in her feet which keeps her up at night, with an uncomfortable sensation crawling up her shins from the feet. She wakes up and stretches them as this improves her symptoms temporarily. We discussed nerve stimulation device Nidra to trial for RLS symptoms, now that she no longer finds relief with gabapentin. Total headaches/ migraine burden is more than 15 per month and prevents her from interacting socially with family and going outside for errands or shopping. Frequency of migraines is 3-4x per week which improve with fiorcet, magnesium, and riboflavin, however they can last over night and she adjuncts with tylenol as and otc excedrin as needed. Chronic migraine prevention is Atogepant (Qulipta 60mg po daily PFSH Medical History Tachycardia Osteoarthritis Diabetic peripheral neuropathy Diabetes GERD (gastroesophageal reflux disease) Venous insufficiency Vitamin D deficiency Urinary incontinence Insomnia Hypertriglyceridemia HTN (hypertension) Anxiety Depression Lumbar spondylosis Tubular adenoma Dyspnea Chronic restrictive lung disease Asthma TONY (obstructive sleep apnea) Surgical History History of hernia repair H/O: hysterectomy Hx of cholecystectomy History of section Hx of appendectomy History of ankle surgery Family History Father CHF (congestive heart failure) Mother CHF (congestive heart failure) Asthma Brother Asthma Social History Alcohol intake: never Patient Tobacco Use Status: Never used Tobacco Physical Exam Vital Signs: Last Vital Signs Pulse 93 07/05/25 12:59 BP 122/66 07/05/25 12:59 Pulse Ox 97 07/05/25 12:59 Oxygen Delivery Method Room Air 07/05/25 12:59 BMI result Body Mass Index 33.0 Const General: cooperative and tired appearing Nutritional Appearance: overweight Orientation/consciousness: patient oriented x3 HEENT Face and sinus: Yes face symmetric Eyes Pupils: Equal, round and reactive pupils present Neck Other: pain on extension and flexion of the neck, rotation is limited. Resp Effort & Inspection: normal respiratory effort and able to speak in complete sentences Neuro General: patient oriented x3 and moves all extremities Cranial nerves: Yes Facial sensation intact/muscles of mastication intact, Yes Equal, round and reactive pupils present, Yes Normal accommodation reflex present, Yes Normal facial strength present, Yes Midline tongue present, Yes Ability to bilaterally rotate head present and Yes Ability to bilaterally elevate shoulders present Cognition (Neuro): normal cognition Gait exam (Neuro): Normal gait present Motor exam (neuro): 5/5 motor strength present throughout and Normal motor muscle tone present throughout Psych Appearance: grossly normal Affect: Sad affect present Attitude: cooperative Insight: Good insight present (Psych) Judgement: Good judgement present (Psych) Results Reviewed Results Reviewed: TONY Compliance Report 11/2024-02/2025 Total usage 88/90 days >4 hours 69 days 77% Avg daily use 4 hours and 37 min Press [id number] Leaks median 0.8 and AHI is 0.8/hr She washes her mask, rinses hoses, changes filters and fills reservoir with water. Assessment & Plan Assessment & Plan (1) TONY (obstructive sleep apnea): Code(s): G47.33 - Obstructive sleep apnea (adult) (pediatric) Category: Medical (2) Migraine without aura: Code(s): G43.009 - Migraine without aura, not intractable, without status migrainosus Category: Medical Qualifiers: Intractability: intractable Status migrainosus presence: without status migrainosus Qualified Code(s): G43.019 - Migraine without aura, intractable, without status migrainosus (3) Irritable mood: Code(s): R45.4 - Irritability and anger Category: Medical (4) Fatigue: Code(s): R53.83 - Other fatigue Category: Medical Qualifiers: Fatigue type: unspecified Qualified Code(s): R53.83 - Other fatigue (5) Bilateral leg paresthesia: Code(s): R20.2 - Paresthesia of skin Category: Medical (6) of family member: Code(s): Z63.4 - Disappearance and of family member Category: Social Hx (7) RLS (restless legs syndrome): Code(s): G25.81 - Restless legs syndrome Category: Medical Plan TONY on cpap continue cpap as pt. has refreshed sleep when using her cpap, compliance is reviewed. Insomnia ambien 10mg as needed for sleep. RX for supply order is sent to her [facility] For Acute Migraine headache treatment: Do not take w/Fiorecet, pt. not certain if she has this medication anymore. May adjunct with OTC Tylenol 650-1000mg q 4-6 hours prn. Trial Ubrogepant (Ubrelvy) 100mg tab, 1/2 - 1 tab (50-100mg) at onset of headache, may repeat in 2 hours. Max of 2 tabs (200mg) per 24 hours. Insurance denial. May adjunct with OTC Tylenol 650-1000mg q 4-6 hours prn. Potential adverse effects, include but are not limited to fatigue, nausea, dry mouth, constipation. Previous acute migraine medication trials: Sumatriptan s/e palpitations, and discontinued. For Chronic Migraine Headaches: Start Qulipta Atogepant 60mg po daily as she is having more than 15 headaches per month. Magnesium 400 mg PO at bedtime daily. Baclofen 10mg qhs. stiffness and tightness of cervical neck. Previous migraine prevention medication trials: Fiorecet? Migraine cap Migraine prevention and contraindications: All triptans and DHEs d/t HTN, palpitations, uncontrolled tachycardia. All NSAIDs d/t alllergies. BB are C/I due to COPD / and Asthma she is on dupixent. For BLE paresthesias: continue Gabapentin 300mg po qam and 600mg po at noon, then 600mg po at bedtime. Will add Lyrica 50mg at bedtime for RLS RLS nerve stimulator device (Nidra) pt. Education [email or web address] Orders: Referrals Medical Weight Management Referral E66.01 - Morbid (severe) obesity due to excess calories Medications: New pregabalin (Lyrica) 50 mg PO BEDTIME 30 caps 0RF restless legs 1 month MDD 50mg G25.81 - Restless legs syndrome Changed From atogepant migraine episodes take one tablet at the onset of migraine. 30 mg PO DAILY 1 month 30 tabs 3RF migraines MDD 30 mg G43.019 - Migraine without aura, intractable, without status migrainosus, R45.4 - Irritability and anger To atogepant migraine episodes take one tablet at the onset of migraine. 60 mg (2 x 30 mg) PO DAILY 60 tabs 3RF migraines 1 month MDD 30 mg G43.019 - Migraine without aura, intractable, without status migrainosus, R45.4 - Irritability and anger Patient Instructions: 800- gabapentin in the qam, will taper Gabapentin will add to Lyrica 50mg qpm Will start her on NIDRA Nerve stimulator for RLS [email or web address] Migraines: Pt to call back to the office with fritz? headache medication clarification. Sleep difficulties Ambien 10mg po at bedtime no driving with this medication. Increase water intake Continue to attend grief counseling, and engage socially with friends and family. F/U with weight management for GLP - 1 therapy or zepbound. Coding Level of Care Code Est Pt Level 4 (43038) Complex EM visit Add On G2211 Diagnoses TONY (obstructive sleep apnea) G47.33 Intractable migraine without aura and without status migrainosus G43.019 Intractability: intractable Status migrainosus presence: without status migrainosus Irritable mood R45.4 Fatigue, unspecified type R53.83 Fatigue type: unspecified Bilateral leg paresthesia R20.2 of family member Z63.4 RLS (restless legs syndrome) G25.81
--- OUTSIDE RECORDS SUMMARY | 2025-07-05 15:16 | XMS_ITS | Encounter Summary ---
Author Organization [facility] Address [address] [place] [address] Care Team Providers Care Guide Setter Name Role Phone Charo Chakraborty MD Primary Care Provider [phone]- [phone] Encounter Details Date Type Department Care Team Description 01/10/2023 Telephone Gastroenterology - [place] [address] [facility] [address] [place] [phone] Judah Yoon PA-C Social History Tobacco Use Types Packs/Day Years Used Date Smoking Tobacco: Never Cigarettes 10 Smokeless Tobacco: Never Comments:Second hand smoke- x 10 yrs Alcohol Use Standard Drinks/Week Comments No 0 (1 standard drink = 0.6 oz pur e alcohol) Intimate Partner Violence Answer Date R ecorded Within the last year, have y ou been afraid of your partner or ex-partner? No 08/30/2020 Within the last year, have y ou been humiliated or emotionally abused in other ways by your partner or ex-partner? No Within the last year, have y ou been kicked, hit, slapped, or otherwise physically hurt by your partner or ex-partner? No 08/30/2020 Within the last year, have y ou been raped or forced to have any kind of sexual activity by your partner or ex-partner? No 08/30/2020 Sex Assigned at Date Recorded Not on file Job Start Date Occupation Industry Not on file Not on file Not on file COVID-19 Exposure Response Date Recorded In the last 10 days, have yo u been in contact with someone who was confirmed or suspected to have Coronavirus/COVID-19? No / Unsure 01/01/2023 12:55 PM EDT documented as of this encounter Miscellaneous Notes * Telephone Encounter - Lulu Monahan - 01/23/2023 3:43 PM EDT Mailed result letter to patient. * Telephone Encounter - Ellen Hernadez - 01/17/2023 12:53 PM EDT Patients returned call asking to call the patient back * Telephone Encounter - Lulu Monahan - 01/14/2023 1:27 PM EDT Left a vm for the patient to call our office back. * Telephone Encounter - Judah Yoon PA-C - 01/10/2023 7:57 AM EDT Please let patient know that the FibroSure study which will tell us if there is stiffness to the liver tissue was found to be normal without any fibrosis or stiffness to the liver tissue. Hopefully she is feeling better. FYI patient speaks [place] Island[place] documented in this encounter Plan of Treatment Not on file documented as of this encounter Visit Diagnoses Not on filedocumented in this encounter Care Teams Guide Setter Relationship Specialty Start Date End Date Charo Chakraborty MD PCP - General Internal Medicine 02/14/18 documented as of this encounter
--- OUTSIDE RECORDS SUMMARY | 2025-07-05 15:16 | XMS_ITS | Encounter Summary ---
[facility] Address [address] [place] [address] Care Team Providers Care Tailor'S Aide Name Role Phone Charo Chakraborty MD Primary Care Provider [phone]- [phone] Encounter Details Date Type Department Care Team Description 03/07/2021 Hospital Medical Records [address] [place] [address] Roberta Donis MD [address] [place] [address] Social History Tobacco Use Types Packs/Day Years [...] Exposure Response Date Recorded In the last month, have you been in contact with someone who was confirmed or suspected to have Coronavirus / COVID-19? No / Unsure 02/17/2021 9:19 AM EDT documented as of this encounter Plan of Treatment Not on file documented as of this encounter Visit Diagnoses Not on filedocumented in this encounter Care Teams Tailor'S Aide Relationship Specialty Start Date End Date Charo Chakraborty MD PCP - General Internal Medicine 02/14/18 documented as of this encounter
--- OUTSIDE RECORDS SUMMARY | 2025-07-05 15:16 | XMS_ITS | Encounter Summary ---
Author Organization [facility] Address [address] [place] [address] Care Team Providers Care Electrotherapist Name Role Phone Charo Chakraborty MD Primary Care Provider [phone]- [phone] Encounter Details Date Type Department Care Team Description 03/25/2023 Technical Documentation Specialist Report Medical Records [address] [place] [id number] Slick Diego MD Social History Tobacco Use Types Packs/Day Years [...] on file documented as of this encounter Plan of Treatment Not on file documented as of this encounter Visit Diagnoses Not on filedocumented in this encounter Care Teams Electrotherapist Relationship Specialty Start Date End Date Chaganti, Charo Leann, MD PCP - General Internal Medicine 02/14/18 documented as of this encounter
--- OUTSIDE RECORDS SUMMARY | 2025-07-05 15:16 | XMS_ITS | Encounter Summary ---
Author [facility] Address [address] [place] [address] Care Team Providers Care Elementary Art Teacher Name Role Phone Charo Chakraborty MD Primary Care Provider [phone]- [phone] Encounter Details Date Type Department Care Team Description 03/10/2021 Orders Only Medical Records [address] [place] [address] Roberta Donis MD [address] [place] [address] Social History Tobacco Use Types Packs/Day Years [...] AM EDT documented as of this encounter Progress Notes * Derek Donis MD - 03/18/2021 4:33 PM EDT Dear Ms. Vargas,The biopsies taken from your stomach during the endoscopy are within normal limits. The changes are seen in patients who take antacid, acid reducing medication such as Prilosec.Please follow up in order to discuss these findings with the referring physician at [facility] gastroenterology clinic. I would like to personally thank you for allowing us to take care of you. Please don't hesitate to call us for any questions or concerns. Regards, Stacy Donis MD Board Certified Gastroenterology and Internal Medicine Transplant Hepatology [facility] documented in this encounter Plan of Treatment Not on file documented as of this encounter Procedures Procedure Name Priority Date/Time Associated Diagnosis Comments OUTSIDE PATHOLOGY Routine 03/08/2021 documented in this encounter Results * OUTSIDE PATHOLOGY (03/08/2021) Roberta Donis MD OUTSIDE LAB documented in this encounter Visit Diagnoses Not on filedocumented in this encounter Care Teams Elementary Art Teacher Relationship Specialty Start Date End Date Charo Chakraborty MD PCP - General Internal Medicine 02/14/18 documented as of this encounter
--- OUTSIDE RECORDS SUMMARY | 2025-07-05 15:16 | XMS_ITS | Encounter Summary ---
Author Organization [facility] Address [address] [place] [address] Care Team Providers Care Animal Husbandry Manager Name Role Phone Charo Chakraborty MD Primary Care Provider [phone]- [phone] Encounter Details Date Type Department Care Team Description 12/14/2020 [facility] Medical Records [address] [place] [address] [facility] Social History Tobacco Use Types Packs/Day Years [...] have Coronavirus / COVID-19? No / Unsure 11/17/2020 11:00 AM EST documented as of this encounter Plan of Treatment Not on file documented as of this encounter Visit Diagnoses Not on filedocumented in this encounter Care Teams Animal Husbandry Manager Relationship Specialty Start Date End Date Charo Chakraborty MD PCP - General Internal Medicine 02/14/18 documented as of this encounter
--- OUTSIDE RECORDS SUMMARY | 2025-07-05 15:16 | XMS_ITS | Encounter Summary ---
[facility] Address [address] [place] [address] Care Team Providers Care Development Trainer Name Role Phone Charo Chakraborty MD Primary Care Provider [phone]- [phone] Reason for Visit * Reason Onset Date Comments refill request 09/16/2023 Encounter Details Date Type Department Care Team Description 09/16/2023 Refill Internal Medicine - [address], [address] [place] [address] Charo Chakraborty MD [address] [place] [phone] refill request Social History Tobacco Use Types Packs/Day Years [...] on file documented as of this encounter Miscellaneous Notes * Telephone Encounter - Jocelyn James - 09/16/2023 4:12 PM EST Lab Results Component Value Date HGBA1C 8.9 05/08/2023 HGBA1C 7.9 01/01/2023 HGBA1C 7.4 07/16/2022 HGBA1C 7.9 03/08/2022 HGBA1C 7.5 09/25/2021 * Telephone Encounter - Jennifer Conway - 09/16/2023 3:27 PM EST Patient will like this medication to be 90 day supplies documented in this encounter Plan of Treatment Not on file documented as of this encounter Visit Diagnoses Not on filedocumented in this encounter Care Teams Development Trainer Relationship Specialty Start Date End Date Charo Chakraborty MD PCP - General Internal Medicine 02/14/18 documented as of this encounter
--- OUTSIDE RECORDS SUMMARY | 2025-07-05 15:16 | XMS_ITS | Encounter Summary ---
[facility] Address [address] [place] [address] Care Team Providers Care Weaving Instructor Name Role Phone Charo Chakraborty MD Primary Care Provider [phone]- [phone] Encounter Details Date Type Department Care Team Description 03/02/2021 Hospital Medical Records [address] [place] [address] Roberta Donis MD [address] [place] [address] Social History Tobacco Use Types Packs/Day Years [...] on filedocumented in this encounter Care Teams Weaving Instructor Relationship Specialty Start Date End Date Charo Chakraborty MD PCP - General Internal Medicine 02/14/18 documented as of this encounter
--- OUTSIDE RECORDS SUMMARY | 2025-07-05 15:16 | XMS_ITS | Encounter Summary ---
[facility] Address [address] [place] [address] Care Team Providers Care Volleyball Coach Name Role Phone Charo Chakraborty MD Primary Care Provider [phone]- [phone] Reason for Visit * Reason Onset Date Comments Faxed Refill 11/16/2022 Encounter Details Date Type Department Care Team Description 11/16/2022 Refill Internal Medicine - [address], [address] [place] [address] Charo Chakraborty MD [address] [place] [phone] Faxed Refill Social History Tobacco Use Types Packs/Day Years [...] Recorded In the last 10 days, have avinash wagner been in contact with someone who was confirmed or suspected to have Coronavirus/COVID-19? No / Unsure 11/01/2022 11:39 AM EST documented as of this encounter Miscellaneous Notes * Telephone Encounter - Vani Gant MA - 11/20/2022 10:40 AM EST Gusset Maker printed and placed on desk documented in this encounter Plan of Treatment Not on file documented as of this encounter Visit Diagnoses Diagnosis Hypertriglyceridemia Pure hyperglyceridemia Essential hypertension Unspecified essential hypertension Diabetes mellitus type 2 with neurological manifestations (HCC) Type II or unspecified type diabetes mellitus with neurological manifestations, not stated as uncontrolled Class 2 severe obesity due to excess calories with serious comorbidity and body mass index (BMI) of 37.0 to 37.9 in adult (HCC) TONY (obstructive sleep apnea) Obstructive sleep apnea (adult) (pediatric) documented in this encounter Care Teams Volleyball Coach Relationship Specialty Start Date End Date Charo Chakraborty MD PCP - General Internal Medicine 02/14/18 documented as of this encounter
--- OUTSIDE RECORDS SUMMARY | 2025-07-05 15:16 | XMS_ITS | Encounter Summary ---
Author Organization [facility] Address [address] [place] [address] Care Team Providers Care Wharf Laborer Name Role Phone Charo Chakraborty MD Primary Care Provider Reason for Visit * Reason Comments E-prescribe Rx Request Encounter Details Date Type Department Care Team Description 01/27/2023 Refill Pulmonology - [place] [address] [facility] [address] [place] [phone] Madina Carter, TONNY [address] [phone] E-prescribe Rx Request Social History Tobacco Use Types Packs/Day Years [...] suspected to have Coronavirus/COVID-19? 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
--- OUTSIDE RECORDS SUMMARY | 2025-07-05 15:16 | XMS_ITS | Encounter Summary ---
[facility] Address [address] [place] [address] Care Team Providers Care Traveling Freight Agent Name Role Phone Charo Chakraborty MD Primary Care Provider +1- [phone] Reason for Visit * Reason Onset Date Comments Prior Authorization 03/23/2021 Encounter Details Date Type Department Care Team Description 03/23/2021 Telephone Gastroenterology [facility] [address] [place] [phone] Judah Yoon PA-C Prior Authorization Social History Tobacco Use Types Packs/Day Years [...] have Coronavirus / COVID-19? No / Unsure 03/16/2021 3:04 PM EDT documented as of this encounter Miscellaneous Notes * Telephone Encounter - Bernadette Hanson M.A. - 03/24/2021 1:34 PM EDT Ondansetron 4mg tablets are not covered unless patient would be using this medication for the diagnosis of chemotherapy induced nausea and vomiting. Please advise patient. Thank you, Bernadette Bangura Prior Authorization Dept Ext [phone] Fax [phone] * Telephone Encounter - Bernadette Hanson M.A. - 03/24/2021 10:09 AM EDT Dx code:R11.0 Nausea Prior authorization done on Atul form for Ondansetron 4mg tablets. * Telephone Encounter - Belem Resendiz - 03/23/2021 4:38 PM EDT Prior Authorization for Medication-do not complete and send this encounter unless you have the fax from the pharmacy. Is this a Cover My Meds request: [place] of Medication Ondansetron Dose of Medication 4MG What is the RX # from the faxed refill? How does patient take this med? What Pharmacy did the fax come from: [facility] fax #: [phone] Third [employer] Party Information from fax: What Prescription Plan does the patient have? BIN/PCN if applicable: Cardholder ID: Person Code: Relationship Code: Help desk phone: [phone] documented in this encounter Plan of Treatment Not on file documented as of this encounter Visit Diagnoses Not on filedocumented in this encounter Care Teams Traveling Freight Agent Relationship Specialty Start Date End Date Charo Chakraborty MD PCP - General Internal Medicine 02/14/18 documented as of this encounter
--- OUTSIDE RECORDS SUMMARY | 2025-07-05 15:16 | XMS_ITS | Encounter Summary ---
[facility] Organization [facility] Address [address] [place] [address] Care Team Providers Care Reconstructive Surgeon Name Role Phone Charo Chakraborty MD Primary Care Provider [phone]- [phone] Reason for Visit * Reason Onset Date Comments refill request 10/08/2022 Encounter Details Date Type Department Care Team Description 10/08/2022 Refill Internal Medicine - [address], [address] [place] [address] Charo Chakraborty MD [address] [place] [phone] refill request Social History Tobacco Use [...] suspected to have Coronavirus/COVID-19? No / Unsure 10/04/2022 12:10 PM EST documented as of this encounter Miscellaneous Notes * Telephone Encounter - Rowan Petersen - 10/08/2022 3:21 PM EST No visits with results within 1 Month(s) from this visit. Latest known visit with results is: Orders Only on 07/19/2022 Component Date Value ??? LIPASE 07/19/2022 194 ??? WHITE BLOOD COUNT 07/19/2022 7.1 ??? RED BLOOD COUNT 07/19/2022 4.7 ??? Hemoglobin 07/19/2022 14.6 ??? Hematocrit 07/19/2022 43.9 ??? MEAN CORPUSCULAR VOLUME 07/19/2022 92.6 ??? MEAN CORPUSCULAR HEMOGLO* 07/19/2022 30.8 ??? MEAN CORPUSCULAR HGB CONC 07/19/2022 33.3 ??? RED CELL DISTRIBUTION WI* 07/19/2022 12.4 ??? PLT COUNT 07/19/2022 211 ??? MEAN PLATELET VOLUME 07/19/2022 11.2 (H) ??? NRBC % AUTO 07/19/2022 0.0 ??? NEUTROPHILS % 07/19/2022 54.2 ??? LYMPH % 07/19/2022 38.4 ??? MONO % 07/19/2022 6.0 ??? EOS % 07/19/2022 0.7 ??? BASO % 07/19/2022 0.6 ??? IMMATURE GRANULOCYTES % 07/19/2022 0.1 ??? NRBC # AUTO 07/19/2022 0.00 ??? NEUT # 07/19/2022 3.87 ??? LYMPH # 07/19/2022 2.74 ??? MONO # 07/19/2022 0.43 ??? EOS # 07/19/2022 0.05 ??? BASO # 07/19/2022 0.04 ??? IMMATURE GRANULOCYTES # 07/19/2022 0.01 Pended * Telephone Encounter - Ninfa Jimenez Troy - 10/08/2022 2:17 PM EST SAMUEL 07/19/22 NOV 11/01/22 documented in this encounter Plan of Treatment Not on file documented as of this encounter Visit Diagnoses Diagnosis Hypertriglyceridemia Pure hyperglyceridemia Essential hypertension Unspecified essential hypertension Diabetes mellitus type 2 with neurological manifestations (HCC) Type II or unspecified type diabetes mellitus with neurological manifestations, not stated as uncontrolled documented in this encounter Care Teams Reconstructive Surgeon Relationship Specialty Start Date End Date Charo Chakraborty MD PCP - General Internal Medicine 02/14/18 documented as of this encounter
--- OUTSIDE RECORDS SUMMARY | 2025-07-05 15:16 | XMS_ITS | Encounter Summary ---
Author Organization [facility] Address [address] [place] [address] Care Team Providers Care Occupational Health And Safety Adviser Name Role Phone Charo Chakraborty MD Primary Care Provider [phone] [phone] Encounter Details Date Type Department Care Team Description 01/15/2019 Offset Platemaker Report Medical Records [address] [place] [address] Matt Alonso Social History Tobacco Use Types Packs/Day Years [...] on filedocumented in this encounter Care Teams Occupational Health And Safety Adviser Relationship Specialty Start Date End Date Charo Chakraborty MD PCP - General Internal Medicine 02/14/18 documented as of this encounter
--- OUTSIDE RECORDS SUMMARY | 2025-07-05 15:16 | XMS_ITS | Encounter Summary ---
Author Organization [facility] Address [address] [place] [address] Care Team Providers Care Holder Pile Driving Name Role Phone Charo Chakraborty MD Primary Care Provider +1- [phone] Reason for Visit * Reason Comments E-prescribe Rx Request Encounter Details Date Type Department Care Team Description 01/14/2021 Refill Allergy [place] [address] [place] [address] Molly Travis PA-C E-prescribe Rx Request Social History Tobacco Use [...] have Coronavirus / COVID-19? No / Unsure 01/16/2021 2:13 PM EDT documented as of this encounter Miscellaneous Notes * Telephone Encounter - Sameer Shay M.A. - 01/16/2021 10:12 AM EDT SAMUEL- 01/09/2021 F/U- 05/02/2021 documented in this encounter Plan of Treatment Not on file documented as of this encounter Visit Diagnoses Not on filedocumented in this encounter Care Teams Holder Pile Driving Relationship Specialty Start Date End Date Charo Chakraborty MD PCP - General Internal Medicine 02/14/18 documented as of this encounter
--- OUTSIDE RECORDS SUMMARY | 2025-07-05 15:16 | XMS_ITS | Encounter Summary ---
Author Organization [facility] Address [address] [place] [address] Care Team Providers Care Plant Associate Name Role Phone Charo Chakraborty MD Primary Care Provider +1- [phone] Encounter Details Date Type Department Care Team Description 06/26/2023 Tin Dipper Report Medical Records [address] [place] [id number] Abstract, Provider Social History Tobacco Use Types Packs/Day Years [...] on filedocumented in this encounter Care Teams Plant Associate Relationship Specialty Start Date End Date Charo Chakraborty MD PCP - General Internal Medicine 02/14/18 documented as of this encounter
--- OUTSIDE RECORDS SUMMARY | 2025-07-05 15:16 | XMS_ITS | Encounter Summary ---
Author Organization [facility] Address [address] [place] [address] Care Team Providers Care Pit Crane Operator Name Role Phone Charo Chakraborty MD Primary Care Provider +1- [phone] Encounter Details Date Type Department Care Team Description 03/05/2021 Hospital Medical Records [address] [place] [address] Roberta Donis MD [address] [place] [address] Social History Tobacco Use Types Packs/Day Years [...] on filedocumented in this encounter Care Teams Pit Crane Operator Relationship Specialty Start Date End Date Charo Chakraborty MD PCP - General Internal Medicine 02/14/18 documented as of this encounter
--- OUTSIDE RECORDS SUMMARY | 2025-07-05 15:16 | XMS_ITS | Encounter Summary ---
[facility] Organization [facility] Address [address] [place] [address] Care Team Providers Care Anthropology Department Chair Name Role Phone Charo Chakraborty MD Primary Care Provider +1- [phone] Reason for Visit * Reason Onset Date Comments refill request 02/04/2023 Encounter Details Date Type Department Care Team Description 02/04/2023 Refill Internal Medicine - [address], [address] [place] [address] Charo Chakraborty MD [address] [place] [phone] refill request Social History Tobacco Use [...] AM EDT documented as of this encounter Miscellaneous Notes * Telephone Encounter - Amelia Campos - 02/04/2023 1:35 PM EDT BP Readings from Last 3 Encounters: 01/23/23 100/60 01/01/23 (!) 144/76 11/01/22 (P) 110/70 * Telephone Encounter - Yanet Liu - 02/04/2023 1:12 PM EDT Theodore 01/23/2023 Nov 07/19/2023 documented in this encounter Plan of Treatment Not on file documented as of this encounter Visit Diagnoses Not on filedocumented in this encounter Care Teams Anthropology Department Chair Relationship Specialty Start Date End Date Charo Chakraborty MD PCP - General Internal Medicine 02/14/18 documented as of this encounter
--- OUTSIDE RECORDS SUMMARY | 2025-07-05 15:16 | XMS_ITS | Encounter Summary ---
Author Organization [facility] Address [address] [place] [address] Care Team Providers Care Wastewater Process Engineer Name Role Phone Charo Chakraborty MD Primary Care Provider Reason for Visit * Reason Comments E-prescribe Rx Request Encounter Details Date Type Department Care Team Description 06/14/2023 Refill Pulmonology - [place] [address] [facility] [address] [place] [phone] Madina Carter, TONNY [address] [phone] E-prescribe Rx Request Social History Tobacco Use [...] suspected to have Coronavirus/COVID-19? No / Unsure 05/20/2023 9:27 AM EDT documented as of this encounter Miscellaneous Notes * Telephone Encounter - Ninfa Simmons - 06/14/2023 3:01 PM EDT Based on scanned documents, patient no longer seeing Madina, now seeing Dr Diego in [place] documented in this encounter Plan of Treatment [...] complication documented in this encounter Care Teams Wastewater Process Engineer Relationship Specialty Start Date End Date Charo Chakraborty MD PCP - General Internal Medicine 02/14/18 documented as of this encounter
--- OUTSIDE RECORDS SUMMARY | 2025-07-05 15:16 | XMS_ITS | Encounter Summary ---
Author Organization [facility] Address [address] [place] [address] Care Team Providers Care Ice Hockey Coach Name Role Phone Charo Chakraborty MD Primary Care Provider +1- [phone] Reason for Visit * Reason Onset Date Comments refill request 11/16/2022 Encounter Details Date Type Department Care Team Description 11/16/2022 Refill Internal Medicine - [address], [address] [place] [address] Charo Chakraborty MD [address] [place] [phone] refill request Social History Tobacco Use [...] encounter Miscellaneous Notes * Telephone Encounter - Jayleen Kendall - 11/16/2022 8:49 AM EST BP Readings from Last 1 Encounters: 11/01/22 (P) 110/70 * Telephone Encounter - Yanet Liu - 11/16/2022 8:44 AM EST Theodore 11/01/2022 documented in this encounter Plan of Treatment Not on file documented as of this encounter Visit Diagnoses Diagnosis Class 2 severe obesity due to excess calories with serious comorbidity and body mass index (BMI) of 37.0 to 37.9 in adult (HCC) Hypertriglyceridemia Pure hyperglyceridemia Essential hypertension Unspecified essential hypertension Diabetes mellitus type 2 with neurological manifestations (HCC) Type II or unspecified type diabetes mellitus with neurological manifestations, not stated as uncontrolled Type II or unspecified type diabetes mellitus with neurological manifestations, not stated as uncontrolled(250.60) (HCC) Type II or unspecified type diabetes mellitus with neurological manifestations, not stated as uncontrolled Severe asthma with acute exacerbation, unspecified whether persistent Chronic obstructive pulmonary disease, unspecified COPD type (HCC) Allergic rhinitis, unspecified seasonality, unspecified trigger TONY (obstructive sleep apnea) Obstructive sleep apnea (adult) (pediatric) Gastroesophageal reflux disease without esophagitis Esophageal reflux documented in this encounter Care Teams Ice Hockey Coach Relationship Specialty Start Date End Date Charo Chakraborty MD PCP - General Internal Medicine 02/14/18 documented as of this encounter
--- OUTSIDE RECORDS SUMMARY | 2025-07-05 15:16 | XMS_ITS | Encounter Summary ---
Author Organization [facility] Address [address] [place] [address] Care Team Providers Care Film Crew Member Name Role Phone Charo Chakraborty MD Primary Care Provider +1- [phone] Reason for Visit * Reason Onset Date Comments refill request 07/23/2023 Encounter Details Date Type Department Care Team Description 07/23/2023 Refill Internal Medicine - [address], [address] [place] [address] Charo Chakraborty MD [address] [place] [phone] refill request Social History Tobacco Use [...] suspected to have Coronavirus/COVID-19? No / Unsure 07/19/2023 1:50 PM EDT documented as of this encounter Miscellaneous Notes * Telephone Encounter - Yessi Chavez - 07/23/2023 3:18 PM EDT Rx pended * Telephone Encounter - Charo Chakraborty MD - 07/23/2023 1:36 PM EDT Pls pend * Telephone Encounter - Yessi Chavez - 07/23/2023 10:28 AM EDT Pls advise? Want me to pend? * Telephone Encounter - Jennifer Conway - 07/23/2023 9:02 AM EDT May from the pharmacy needs Strips one touch ultra quantite 100 Direction test once a day Lancet needs to be delica Please call pharmacy [phone] documented in this encounter Plan of Treatment Not on file documented as of this encounter Visit Diagnoses Not on filedocumented in this encounter Care Teams Film Crew Member Relationship Specialty Start Date End Date Charo Chakraborty MD PCP - General Internal Medicine 02/14/18 documented as of this encounter
--- OUTSIDE RECORDS SUMMARY | 2025-07-05 15:16 | XMS_ITS | Encounter Summary ---
Author Organization [facility] Address [address] [place] [address] Care Team Providers Care Mental Health Aides Teacher Name Role Phone Charo Chakraborty MD Primary Care Provider +1- [phone] Reason for Visit * Reason Onset Date Comments Faxed Refill 04/25/2023 Encounter Details Date Type Department Care Team Description 04/25/2023 Refill Internal Medicine - [address], [address] [place] [address] Charo Chakraborty MD [address] [place] [phone] Faxed Refill Social History Tobacco Use [...] * Telephone Encounter - Rowan Petersen - 04/25/2023 10:30 AM EDT No visits with results within 1 Month(s) from this visit. Latest known visit with results is: Appointment on 01/01/2023 Component Date Value ??? GLYCATED HEMOGLOBIN A1C 01/01/2023 7.9 (H) ??? ESTIMATED AVERAGE GLUCOSE 01/01/2023 180 ??? GLUCOSE 01/01/2023 216 (H) ??? Blood Urea Nitrogen 01/01/2023 18 ??? CREAT 01/01/2023 0.67 ??? GLOMERULAR FILTRATION RA* 01/01/2023 96 ??? NA 01/01/2023 137 ??? K 01/01/2023 3.9 ??? CL 01/01/2023 102 ??? CARBON DIOXIDE (CO2) 01/01/2023 32 ??? ANION GAP 01/01/2023 3 ??? CALCIUM 01/01/2023 9.7 ??? Albumin 01/01/2023 3.8 ??? SGOT 01/01/2023 13 ??? SGPT 01/01/2023 29 ??? TOTAL PROTEIN (TP) 01/01/2023 6.8 ??? BILIRUBIN TOTAL 01/01/2023 0.3 ??? ALK PHOS 01/01/2023 73 ??? Cholesterol 01/01/2023 163 ??? TRIGLYCERIDES 01/01/2023 117 ??? HDL CHOLESTEROL 01/01/2023 50 ??? LDL CALCULATED 01/01/2023 90 ??? TC-HDLC RATIO 01/01/2023 3.3 documented in this encounter Plan of Treatment Not on file documented as of this encounter Visit Diagnoses Not on filedocumented in this encounter Care Teams Mental Health Aides Teacher Relationship Specialty Start Date End Date Charo Chakraborty MD PCP - General Internal Medicine 02/14/18 documented as of this encounter
--- OUTSIDE RECORDS SUMMARY | 2025-07-05 15:16 | XMS_ITS | Encounter Summary ---
Author Organization [facility] Address [address] [place] [address] Care Team Providers Care Loading And Unloading Supervisor Name Role Phone Charo Chakraborty MD Primary Care Provider +1- [phone] Reason for Visit * Reason Onset Date Comments Prior Authorization 02/15/2021 Encounter Details Date Type Department Care Team Description 02/15/2021 Telephone Internal Medicine - [address], [address] [place] [address] Charo Chakraborty MD [address] [place] [phone] Prior Authorization Social History Tobacco Use Types [...] encounter Miscellaneous Notes * Telephone Encounter - Heidi Miller M.A. - 02/20/2021 9:48 AM EDT Spoke with Pts pharmacy and they stated pt picked it up on 12/1020 for a 50 day supply. * Telephone Encounter - Eliane Up - 02/15/2021 1:43 PM EDT Prior Authorization for Medication-do not complete and send this encounter unless you have the fax from the pharmacy. Is this a Cover My Meds request: [place] of Medication Novolog Flexpen (orange) Dose of Medication 3ML What is the RX # from the faxed refill? [id number] How does patient take this med? Administer 5-10 units under skin three times daily before meals What Pharmacy did the fax come from: [facility] fax #: [phone] Third [employer] Information from fax: What Prescription Plan does the patient have? BIN/PCN if applicable: Cardholder ID: [id number] Person Code: Relationship Code: Help desk phone: [phone] documented in this encounter Plan of Treatment Not on file documented as of this encounter Visit Diagnoses Not on filedocumented in this encounter Care Teams Loading And Unloading Supervisor Relationship Specialty Start Date End Date Charo Chakraborty MD PCP - General Internal Medicine 02/14/18 documented as of this encounter
--- OUTSIDE RECORDS SUMMARY | 2025-07-05 15:16 | XMS_ITS | Encounter Summary ---
Author Organization [facility] Address [address] [place] [address] Care Team Providers Care Construction Supervisor/Carpenter Name Role Phone Charo Chakraborty MD Primary Care Provider +1 [phone] Encounter Details Date Type Department Care Team Description 01/03/2021 SCAN Medical Records [address] [place] [address] Abstract, Provider Social History Tobacco Use Types [...] Name Priority Date/Time Associated Diagnosis Comments OUTSIDE EKG Routine 01/03/2021 documented in this encounter Results * OUTSIDE EKG (01/03/2021) Provider Abstract CARDIOLOGY documented in this encounter Visit Diagnoses Not on filedocumented in this encounter Care Teams Construction Supervisor/Carpenter Relationship Specialty Start Date End Date Charo Chakraborty MD PCP - General Internal Medicine 02/14/18 documented as of this encounter
--- OUTSIDE RECORDS SUMMARY | 2025-07-05 15:16 | XMS_ITS | Encounter Summary ---
Author Organization [facility] Address [address] [place] [address] Care Team Providers Care Hardwood Floor Refinisher Name Role Phone Charo Chakraborty MD Primary Care Provider +1- [phone] Encounter Details Date Type Department Care Team Description 05/20/2023 Telephone Internal Medicine [facility] [address] [facility], [address] [place] [address] Charo Chakraborty MD [address] [place] [phone] Social History Tobacco Use Types Packs/Day Years [...] * Telephone Encounter - Yessi Chavez - 05/24/2023 10:02 AM EDT Called left vm * Telephone Encounter - Jennyfer Tran - 05/21/2023 1:38 PM EDT Please contact patient - she will answer the phone * Telephone Encounter - Yessi Chavez - 05/20/2023 10:59 AM EDT Called left vm * Telephone Encounter - Yessi Chavez - 05/20/2023 10:59 AM EDT ----- Message from Charo Chakraborty MD sent at 05/16/2023 3:00 PM EDT ----- Patient's A1c got worse from 7.9-8.9 Ask her to be compliant with medication and diet, continue to use sliding scale insulin documented in this encounter Plan of Treatment Not on file documented as of this encounter Visit Diagnoses Not on filedocumented in this encounter Care Teams Hardwood Floor Refinisher Relationship Specialty Start Date End Date Charo Chakraborty MD PCP - General Internal Medicine 02/14/18 documented as of this encounter
--- OUTSIDE RECORDS SUMMARY | 2025-07-05 15:16 | XMS_ITS | Encounter Summary ---
Author Organization [facility] Address [address] [place] [address] Care Team Providers Care Institutional Research Coordinator Name Role Phone Charo Chakraborty MD Primary Care Provider +1 [phone] Encounter Details Date Type Department Care Team Description 03/11/2019 Orders Only Medical Records [address] [place] [address] Abstract, Provider Social History Tobacco Use Types [...] on filedocumented in this encounter Care Teams Institutional Research Coordinator Relationship Specialty Start Date End Date Charo Chakraborty MD PCP - General Internal Medicine 02/14/18 documented as of this encounter
--- OUTSIDE RECORDS SUMMARY | 2025-07-05 15:16 | XMS_ITS | Encounter Summary ---
[facility] [address] [place] [address] Care Team Providers Care Lead Refiner Name Role Phone Charo Chakraborty MD Primary Care Provider +1- [phone] Encounter Details Date Type Department Care Team Description 08/13/2022 Endocrinology Physician Report Medical Records [address] [place] [address] Lizeth Almodovar MD Social History Tobacco Use Types Packs/Day [...] suspected to have Coronavirus/COVID-19? No / Unsure 07/19/2022 1:03 PM EDT documented as of this encounter Plan of Treatment Not on file documented as of this encounter Visit Diagnoses Not on filedocumented in this encounter Care Teams Lead Refiner Relationship Specialty Start Date End Date Charo Chakraborty MD PCP - General Internal Medicine 02/14/18 documented as of this encounter
--- OUTSIDE RECORDS SUMMARY | 2025-07-05 15:16 | XMS_ITS | Encounter Summary ---
Author Organization [facility] Address [address] [place] [address] Care Team Providers Care Mirror Framer Name Role Phone Charo Chakraborty MD Primary Care Provider +1- [phone] Reason for Visit * Reason Onset Date Comments refill request 12/13/2020 Encounter Details Date Type Department Care Team Description 12/13/2020 Refill Internal Medicine - [address], [address] [place] [address] Charo Chakraborty MD [address] [place] [phone] refill request Social History Tobacco Use [...] on filedocumented in this encounter Care Teams Mirror Framer Relationship Specialty Start Date End Date Charo Chakraborty MD PCP - General Internal Medicine 02/14/18 documented as of this encounter
--- OUTSIDE RECORDS SUMMARY | 2025-07-05 15:16 | XMS_ITS | Encounter Summary ---
[facility] Organization [facility] Address [address] [place] [address] Care Team Providers Care Orderly Name Role Phone Charo Chakraborty MD Primary Care Provider +1- [phone] Reason for Visit * Reason Onset Date Comments refill request 10/22/2022 Encounter Details Date Type Department Care Team Description 10/22/2022 Telephone Internal Medicine - [address], [address] [place] [address] Charo Chakraborty MD [address] [place] [phone] refill request Social History Tobacco Use [...] In the last 10 days, have avinash u been in contact with someone who was confirmed or suspected to have Coronavirus/COVID-19? No / Unsure 10/04/2022 12:10 PM EST documented as of this encounter Miscellaneous Notes * Telephone Encounter - Thelma Waller M.A. - 10/22/2022 3:31 PM EST Lab Results Component Value Date HGBA1C 7.4 07/16/2022 HGBA1C 7.9 03/08/2022 HGBA1C 7.5 09/25/2021 HGBA1C 7.3 02/17/2021 HGBA1C 7.6 10/12/2020 * Telephone Encounter - Minda Dominguez - 10/22/2022 2:53 PM EST SAMUEL 07/21/22 NOV 11/01/22 documented in this encounter Plan [...] (pediatric) documented in this encounter Care Teams Orderly Relationship Specialty Start Date End Date Charo Chakraborty MD PCP - General Internal Medicine 02/14/18 documented as of this encounter
--- OUTSIDE RECORDS SUMMARY | 2025-07-05 15:16 | XMS_ITS | Encounter Summary ---
[facility] Address [address] [place] [address] Care Team Providers Care Commercial Production Editor Name Role Phone Charo Chakraborty MD Primary Care Provider +1- [phone] Reason for Visit * Reason Onset Date Comments Prior Authorization 10/12/2020 Encounter Details Date Type Department Care Team Description 10/12/2020 Telephone Internal Medicine - [address], [address] [place] [address] Charo Chakraborty MD [address] [place] [phone] Prior Authorization Social History Tobacco Use [...] have Coronavirus / COVID-19? No / Unsure 10/12/2020 12:55 PM EST documented as of this encounter Miscellaneous Notes * Telephone Encounter - Heidi Miller M.A. - 10/17/2020 8:12 AM EST Prior authorization for the lidocaine patch was approved Approved from 09/30/20 until 10/14/21 Approval faxed to [facility] at [phone] * Telephone Encounter - Heidi Miller M.A. - 10/14/2020 3:40 PM EST Prior authorization for the lidocaine patch was completed today on cover my meds Dx Diabetic neuropathy Continuation of therapy * Telephone Encounter - Eliane Up - 10/12/2020 4:02 PM EST Prior Authorization for Medication-do not complete and send this encounter unless you have the fax from the pharmacy. Is this a Cover My Meds request: Yes -- Wells Code [id number] Name of Medication Lidocaine Dose of Medication 5% What is the RX # from the faxed refill? N/A How does patient take this med? Place 1 Patch onto the skin every 24 hours for 28 days. Apply for no more than 12 hours in any 24 hour period. - Transdermal What Pharmacy did the fax come from: [facility] fax #: [phone] Third Republican Information from fax: What Prescription Plan does the patient have? BIN/PCN if applicable: Cardholder ID: Person Code: Relationship Code: Help desk phone: documented in this encounter Plan of Treatment Not on file documented as of this encounter Visit Diagnoses Not on filedocumented in this encounter Care Teams Commercial Production Editor Relationship Specialty Start Date End Date Charo Chakraborty MD PCP - General Internal Medicine 02/14/18 documented as of this encounter
--- OUTSIDE RECORDS SUMMARY | 2025-07-05 15:16 | XMS_ITS | Encounter Summary ---
Author Organization [facility] Address [address] [place] [address] Care Team Providers Care Sandblast Carver Name Role Phone Charo Chakraborty MD Primary Care Provider +1- [phone] Reason for Visit * Reason Onset Date Comments refill request 09/29/2020 formulary altern ative for albuterol Encounter Details Date Type Department Care Team Description 09/29/2020 Telephone Adult Medicine - [address] [address] Charo Chakraborty MD [address] [place] [phone] refill request (formulary alternative for albuterol ) Social History Tobacco Use Types Packs/Day Years [...] or suspected to have Coronavirus / COVID-19? Unable to assess 09/26/2020 8:05 AM EST documented as of this encounter Miscellaneous Notes * Telephone Encounter - Mariajose Martinez M.A. - 09/29/2020 9:11 AM EST Left message for patient to call office at [phone] documented in this encounter Plan of Treatment Not on file documented as of this encounter Visit Diagnoses Not on filedocumented in this encounter Care Teams Sandblast Carver Relationship Specialty Start Date End Date Charo Chakraborty MD PCP - General Internal Medicine 02/14/18 documented as of this encounter
--- OUTSIDE RECORDS SUMMARY | 2025-07-05 15:16 | XMS_ITS | Encounter Summary ---
Author Organization [facility] Address [address] [place] [address] Care Team Providers Care Loan Teller Name Role Phone Charo Chakraborty MD Primary Care Provider +1- [phone] Encounter Details Date Type Department Care Team Description 09/14/2022 Senior Sql Server Developer Report Medical Records [address] [place] [id number] Slick Diego MD Social History Tobacco Use [...] on filedocumented in this encounter Care Teams Loan Teller Relationship Specialty Start Date End Date Chaganti, Charo Leann, MD PCP - General Internal Medicine 02/14/18 documented as of this encounter
--- OUTSIDE RECORDS SUMMARY | 2025-07-05 15:16 | XMS_ITS | Encounter Summary ---
Author Organization [facility] Address [address] [place] [address] Care Team Providers Care Food Scientist Name Role Phone Charo Chakraborty MD Primary Care Provider +1- [phone] Reason for Visit * Reason Onset Date Comments Itching 02/14/2021 [place] [facility] 02/14/2021 Encounter Details Date Type Department Care Team Description 02/14/2021 Telephone Allergy Cost [address] [place] [address] Lizeth Almodovar MD Itching; [place] [facility] Social History Tobacco Use Types Packs/Day Years [...] encounter Miscellaneous Notes * Telephone Encounter - Maria Antonia Harrington LPN - 02/14/2021 4:40 PM EDT Message endorsed. All questions answered. Via american sign language interpreter phone. * Telephone Encounter - Molly Travis PA-C - 02/14/2021 4:25 PM EDT Please ask her to increase Zyrtec to 10 mg twice daily for itching and review use of Epipen as needed for anaphylaxis. Hold Nucala injections. Monitor for sedation on this dosing. Please see if she can come in at 10 am tomorrow for sick visit. BEAU Almodovar * Telephone Encounter - Maria Antonia Harrington LPN - 02/14/2021 4:07 PM EDT Pt got her Nucala on . She started with itching on neck and body and is fatigued and has a dry mouth on Saturday. No redness or hives. No SOB. She took benadryl with no effect. Optical Instruments Supervisor phone used. * Telephone Encounter - Kallie Finch - 02/14/2021 12:23 PM EDT Patient reports that she began experiencing skin Itching and watery red eyes on Saturday. Benadryl has not helped. documented in this encounter Plan of Treatment Not on file documented as of this encounter Visit Diagnoses Not on filedocumented in this encounter Care Teams Food Scientist Relationship Specialty Start Date End Date Charo Chakraborty MD PCP - General Internal Medicine 02/14/18 documented as of this encounter
--- OUTSIDE RECORDS SUMMARY | 2025-07-05 15:16 | XMS_ITS | Encounter Summary ---
Author [facility] Address [address] [place] [address] Care Team Providers Care Cyber Systems Administrator Name Role Phone Charo Chakraborty MD Primary Care Provider +1- [phone] Reason for Visit * Reason Onset Date Comments Prior Authorization 03/30/2021 Encounter Details Date Type Department Care Team Description 03/30/2021 Telephone Gastroenterology [facility] [address] [facility] [address] [place] [phone] Judah Yoon PA-C Prior Authorization Social History [...] have Coronavirus / COVID-19? No / Unsure 03/30/2021 7:58 AM EDT documented as of this encounter Miscellaneous Notes * Telephone Encounter - Lulu Monahan - 03/30/2021 11:20 AM EDT This was sent by Judah underwood to the pharmacy. * Telephone Encounter - Sarah Moulton - 03/30/2021 10:47 AM EDT Prior Authorization for Medication-do not complete and send this encounter unless you have the fax from the pharmacy. Is this a Cover My Meds request: [place] of Medication Hyoscyamine Dose of Medication 0.125 mg What is the RX # from the faxed refill? [id number] How does patient take this med? Dissolve 1 tab under the tongue q 4 hours What Pharmacy did the fax come from: [facility] fax #: [phone] Third Libertarian Information from fax: What Prescription Plan does the patient have? unknown BIN/PCN if applicable: Cardholder ID: Person Code: Relationship Code: Help desk phone: documented in this encounter Plan of Treatment Not on file documented as of this encounter Visit Diagnoses Not on filedocumented in this encounter Care Teams Cyber Systems Administrator Relationship Specialty Start Date End Date Charo Chakraborty MD PCP - General Internal Medicine 02/14/18 documented as of this encounter
--- OUTSIDE RECORDS SUMMARY | 2025-07-05 15:17 | XMS_ITS | Encounter Summary ---
Author [facility] Address [address] [place] [address] Care Team Providers Care Cnc Service Technician Name Role Phone Charo Chakraborty MD Primary Care Provider [phone]- [phone] Reason for Visit * Reason Onset Date Comments Faxed Refill 11/17/2019 Dg Encounter Details Date Type Department Care Team Description 11/17/2019 Refill Internal Medicine - [address], [address] [place] [address] Charo Chakraborty MD [address] [place] [phone] Faxed Refill ([facility]) Social History Tobacco Use Types Packs/Day Years [...] encounter Miscellaneous Notes * Telephone Encounter - Ne Jones M.A. - 11/18/2019 12:02 PM EST Refill sent to covering Shahab Peacock * Telephone Encounter - Giancarlo Diego - 11/17/2019 4:05 PM EST Patient would like script to be: E-PRESCRIBED/FAXED TO PHARMACY WHEN WAS THE PATIENT'S LAST APPOINTMENT IN ADULT MEDICINE? 09/29/2019 WHEN WAS THE LAST TIME THE PATIENT SAW THEIR PCP? Same as above Does patient have an upcoming appointment? Yes 12/01/2019 (THE MEDICATION REQUESTED IS ON THE MED LIST ABOVE) All of the medications requested were on the CURRENT MEDS list Did you check the Pharmacy information above?: YES Patient wants: 30 -day supply Is this a mail order prescription request ? NO If the refill is from a FAXED refill request what is the RX # listed on the fax? [id number] Patients current insurance carrier is: Payor: [employer] FFS / Plan: [employer] / Product Type: MEDICAID RISK documented in this encounter Plan of Treatment Not on file documented as of this encounter Visit Diagnoses Not on filedocumented in this encounter Care Teams Cnc Service Technician Relationship Specialty Start Date End Date Charo Chakraborty MD PCP - General Internal Medicine 02/14/18 documented as of this encounter
--- OUTSIDE RECORDS SUMMARY | 2025-07-05 15:17 | XMS_ITS | Encounter Summary ---
Author Organization [facility] Address [address] [place] [address] Care Team Providers Care Wall Taper Name Role Phone Charo Chakraborty MD Primary Care Provider +1- [phone] Reason for Visit * Reason Comments E-prescribe Rx Request Encounter Details Date Type Department Care Team Description 04/11/2021 Refill Adult Med - [place] [address] [place], [place] [id number] Charo Chakraborty MD [address] [place] [address] E-prescribe Rx Request Social History Tobacco Use [...] encounter Miscellaneous Notes * Telephone Encounter - Toshia Witt L.P.N. - 04/12/2021 9:20 AM EDT Lab Results Component Value Date NA 141 03/31/2021 K 4.2 03/31/2021 CO2 29 03/31/2021 CL 106 03/31/2021 BUN 13 03/31/2021 CREAT 0.68 03/31/2021 GLU 131 03/31/2021 CA 9.5 03/31/2021 GFR > 60 03/31/2021 * Telephone Encounter - Gretta Conway - 04/11/2021 4:34 PM EDT Theodore 03/31/21 Nov 06/16/21 documented in this encounter Plan of Treatment Not on file documented as of this encounter Visit Diagnoses Not on filedocumented in this encounter Care Teams Wall Taper Relationship Specialty Start Date End Date Charo Chakraborty MD PCP - General Internal Medicine 02/14/18 documented as of this encounter
--- OUTSIDE RECORDS SUMMARY | 2025-07-05 15:17 | XMS_ITS | Encounter Summary ---
Author Organization [facility] Address [address] [place] [address] Care Team Providers Care Hydraulic Boom Operator Name Role Phone Charo Chakraborty MD Primary Care Provider +1- [phone] Encounter Details Date Type Department Care Team Description 09/08/2019 Hospital Medical Records [address] [place] [address] Dieudonne Tolentino Social History Tobacco Use Types Packs/Day Years [...] on filedocumented in this encounter Care Teams Hydraulic Boom Operator Relationship Specialty Start Date End Date Charo Chakraborty MD PCP - General Internal Medicine 02/14/18 documented as of this encounter
--- OUTSIDE RECORDS SUMMARY | 2025-07-05 15:17 | XMS_ITS | Encounter Summary ---
[facility] Address [address] [place] [address] Care Team Providers Care Product Line Manager Name Role Phone Charo Chakraborty MD Primary Care Provider +1- [phone] Encounter Details Date Type Department Care Team Description 01/13/2024 Hospital Medical Records [address] [place] [address] Wilian Handley MD [address] [address] Social History Tobacco Use Types Packs/Day Years [...] on filedocumented in this encounter Care Teams Product Line Manager Relationship Specialty Start Date End Date Charo Chakraborty MD PCP - General Internal Medicine 02/14/18 documented as of this encounter
--- OUTSIDE RECORDS SUMMARY | 2025-07-05 15:17 | XMS_ITS | Encounter Summary ---
Author Organization [facility] Address [address] [place] [address] Care Team Providers Care Anesthesia Assistant Name Role Phone Charo Chakraborty MD Primary Care Provider +1- [phone] Reason for Visit * Reason Onset Date Comments refill request 02/05/2020 Encounter Details Date Type Department Care Team Description 02/05/2020 Refill Pulmonology - [place] [address] [place] [address] Brando Humphrey MD [address] [place] [phone] refill request Social History Tobacco Use Types [...] encounter Miscellaneous Notes * Telephone Encounter - Loreta Mobley - 02/05/2020 3:55 PM EDT Theodore- 12/14/2019 Next- 02/29/2020 * Telephone Encounter - Nehal Luis - 02/05/2020 3:15 PM EDT Patient would like script to be: E-PRESCRIBED/FAXED TO PHARMACY WHEN WAS THE PATIENT'S LAST APPOINTMENT WITH THE PRESCRIBING PROVIDER? 12/14/2019 Does patient have an upcoming appointment? Yes 02/29/2020 (THE MEDICATION REQUESTED IS ON THE MED LIST ABOVE) All of the medications requested were on the CURRENT MEDS list Did you check the Pharmacy information above?: YES Patient wants: 30 -day supply Is this a mail order prescription request ? NO Patients current insurance carrier is: Payor: [employer] FFS / Plan: [employer] [place] / Product Type: MEDICAID RISK documented in this encounter Plan of Treatment Not on file documented as of this encounter Visit Diagnoses Diagnosis Chronic obstructive pulmonary disease, unspecified COPD type (HCC) TONY (obstructive sleep apnea) Obstructive sleep apnea (adult) (pediatric) Class 2 severe obesity due to excess calories with serious comorbidity and body mass index (BMI) of 37.0 to 37.9 in adult (HCC) Severe asthma with acute exacerbation, unspecified whether persistent Allergic rhinitis, unspecified seasonality, unspecified trigger Moderate persistent asthma without complication Unspecified asthma documented in this encounter Care Teams Anesthesia Assistant Relationship Specialty Start Date End Date Charo Chakraborty MD PCP - General Internal Medicine 02/14/18 documented as of this encounter
--- OUTSIDE RECORDS SUMMARY | 2025-07-05 15:17 | XMS_ITS | Encounter Summary ---
Author Organization [facility] Address [address] [place] [address] Care Team Providers Care Order Management Specialist Name Role Phone Charo Chakraborty MD Primary Care Provider +1- [phone] Reason for Visit * Reason Comments E-prescribe Rx Request Encounter Details Date Type Department Care Team Description 10/02/2023 Refill Gastroenterology [address] [place] [phone] Judah Yoon PA-C E-prescribe Rx Request Social History Tobacco [...] encounter Miscellaneous Notes * Telephone Encounter - Lacy Ceballos M.A. - 10/02/2023 2:23 PM EST SAMUEL 08/20/23 No GI f/up documented in this encounter Plan of Treatment Not on file documented as of this encounter Visit Diagnoses Not on filedocumented in this encounter Care Teams Order Management Specialist Relationship Specialty Start Date End Date Charo Chakraborty MD PCP - General Internal Medicine 02/14/18 documented as of this encounter
--- OUTSIDE RECORDS SUMMARY | 2025-07-05 15:17 | XMS_ITS | Encounter Summary ---
[facility] Address [address] [place] [address] Care Team Providers Care Market Development Analyst Name Role Phone Charo Chakraborty MD Primary Care Provider +1- [phone] Reason for Visit * Reason Onset Date Comments Annual Wellness Outreach 05/12/2021 Encounter Details Date Type Department Care Team Description 05/12/2021 Telephone Adult Medicine [address] [address] Charo Chakraborty MD [address] [place] [phone] Annual Wellness Outreach Social History Tobacco Use Types Packs/Day Years [...] have Coronavirus / COVID-19? No / Unsure 05/08/2021 1:28 PM EDT documented as of this encounter Miscellaneous Notes * Telephone Encounter - Jewel Vogel M.A. - 05/12/2021 12:00 PM EDT Ms. Vargas was contacted by telephone. 1st attempt. documented in this encounter Plan of Treatment Not on file documented as of this encounter Visit Diagnoses Not on filedocumented in this encounter Care Teams Market Development Analyst Relationship Specialty Start Date End Date Charo Chakraborty MD PCP - General Internal Medicine 02/14/18 documented as of this encounter
--- OUTSIDE RECORDS SUMMARY | 2025-07-05 15:17 | XMS_ITS | Encounter Summary ---
Author Organization [facility] Address [address] [place] [address] Care Team Providers Care Slotter Operator Name Role Phone Charo Chakraborty MD Primary Care Provider +1- [phone] Encounter Details Date Type Department Care Team Description 04/14/2021 [facility] Medical Records [address] [place] [id number] Abstract, Provider Social History Tobacco Use Types [...] on filedocumented in this encounter Care Teams Slotter Operator Relationship Specialty Start Date End Date Charo Chakraborty MD PCP - General Internal Medicine 02/14/18 documented as of this encounter
--- OUTSIDE RECORDS SUMMARY | 2025-07-05 15:17 | XMS_ITS | Encounter Summary ---
Author Organization [facility] Address [address] [place] [address] Care Team Providers Care Manager Human Capital Name Role Phone Charo Chakraborty MD Primary Care Provider +1- [phone] Reason for Visit * Reason Onset Date Comments Faxed Refill 12/05/2023 Encounter Details Date Type Department Care Team Description 12/05/2023 Refill Internal Medicine - [address], [address] [place] [address] Charo Chakraborty MD [address] [place] [phone] Faxed Refill Social History Tobacco Use [...] encounter Miscellaneous Notes * Telephone Encounter - Nehal Luis - 12/05/2023 9:33 AM EST Theodore 11/22/2023 Nov documented in this encounter Plan of Treatment Not on file documented as of this encounter Visit Diagnoses Diagnosis Hypertriglyceridemia Pure hyperglyceridemia Essential hypertension Unspecified essential hypertension Diabetes mellitus type 2 with neurological manifestations (HCC) Type II or unspecified type diabetes mellitus with neurological manifestations, not stated as uncontrolled documented in this encounter Care Teams Manager Human Capital Relationship Specialty Start Date End Date Charo Chakraborty MD PCP - General Internal Medicine 02/14/18 documented as of this encounter
--- OUTSIDE RECORDS SUMMARY | 2025-07-05 15:17 | XMS_ITS | Encounter Summary ---
Author Organization [facility] Address [address] [place] [address] Care Team Providers Care Lpn Cma Name Role Phone Charo Chakraborty MD Primary Care Provider +1- [phone] Reason for Visit * Reason Onset Date Comments Medication 04/11/2021 Encounter Details Date Type Department Care Team Description 04/11/2021 Telephone Gastroenterology - [place] [address] [facility] [address] [place] [address] Judah Yoon PA-C Medication Social History Tobacco Use Types Packs/Day Years [...] on filedocumented in this encounter Care Teams Lpn Cma Relationship Specialty Start Date End Date Charo Chakraborty MD PCP - General Internal Medicine 02/14/18 documented as of this encounter
--- OUTSIDE RECORDS SUMMARY | 2025-07-05 15:17 | XMS_ITS | Encounter Summary ---
Author Organization [facility] Address [address] [place] [address] Care Team Providers Care Program Manager Rn Name Role Phone Charo Chakraborty MD Primary Care Provider +1- [phone] Reason for Visit * Reason Onset Date Comments Call From Insurance Co 04/13/2021 [facility] Encounter Details Date Type Department Care Team Description 04/13/[address] [facility] [address] [facility] [address] [place] [phone] Judah Yoon PA-C Call From [facility] ([facility]) Social History Tobacco Use Types Packs/Day Years [...] encounter Miscellaneous Notes * Telephone Encounter - Belem Resendiz - 04/13/2021 1:[address] [facility] [employer] coverage has been approved. [facility] is going to fax us this information. documented in this encounter Plan of Treatment Not on file documented as of this encounter Visit Diagnoses Not on filedocumented in this encounter Care Teams Program Manager Rn Relationship Specialty Start Date End Date Charo Chakraborty MD PCP - General Internal Medicine 02/14/18 documented as of this encounter
--- OUTSIDE RECORDS SUMMARY | 2025-07-05 15:17 | XMS_ITS | Encounter Summary ---
Author [facility] Address [address] [place] [address] Care Team Providers Care Quarry Extraction Worker Name Role Phone Charo Chakraborty MD Primary Care Provider +1- [phone] Reason for Visit * Reason Onset Date Comments Abnormal Ekg 12/02/2023 [facility] EKG Overrea d Encounter Details Date Type Department Care Team Description 12/02/2023 Telephone Cardio [facility] Diag Testing [address] [facility] [place] [facility] [address] [place] [address] Charo Chakraborty MD [address] [place] [phone] Abnormal Ekg ([facility] EKG Overread ) Social History Tobacco Use Types Packs/Day [...] encounter Miscellaneous Notes * Telephone Encounter - Kamila Rivasmarilynn - 12/02/2023 3:[address] Lopez overread an EKG that was sent over with the date of 11/22/23. He removed the following: Anterior Q waves, possibly due to LVH. He added: Poor R Wave Progression, cannot exclude prior anterior IN. The EKG is being sent back to the [facility] Dept to be scanned as the final read. Thank You! documented in this encounter Plan of Treatment Not on file documented as of this encounter Visit Diagnoses Not on filedocumented in this encounter Care Teams Quarry Extraction Worker Relationship Specialty Start Date End Date Charo Chakraborty MD PCP - General Internal Medicine 02/14/18 documented as of this encounter
--- OUTSIDE RECORDS SUMMARY | 2025-07-05 15:17 | XMS_ITS | Encounter Summary ---
Author Organization [facility] Address [address] [place] [address] Care Team Providers Care Maintenance Engineer Oil Field Name Role Phone Charo Chakraborty MD Primary Care Provider [phone]- [phone] Encounter Details Date Type Department Care Team Description 06/03/2019 Refill Internal Medicine [address], [address] [place] [address] Charo Chakraborty MD [address] [place] [phone] Social History Tobacco Use Types Packs/Day [...] (BMI) of 37.0 to 37.9 in adult ([facility]) Severe asthma with acute exacerbation, unspecified whether persistent Essential hypertension Unspecified essential hypertension Gastroesophageal reflux disease without esophagitis Esophageal reflux Diabetes mellitus type 2 with neurological manifestations ([facility]) Type II or unspecified type diabetes mellitus with neurological manifestations, not stated as uncontrolled Moderate persistent asthma without complication Unspecified asthma Type II or unspecified type diabetes mellitus with neurological manifestations, not stated as uncontrolled(250.60) ([facility]) Type II or unspecified type diabetes mellitus with neurological manifestations, not stated as uncontrolled Asthma with acute exacerbation, unspecified asthma severity, unspecified whether persistent Class 2 severe obesity due to excess calories with serious comorbidity and body mass index (BMI) of 36.0 to 36.9 in adult ([facility]) documented in this encounter Care Teams Maintenance Engineer Oil Field Relationship Specialty Start Date End Date Charo Chakraborty MD PCP - General Internal Medicine 02/14/18 documented as of this encounter
--- OUTSIDE RECORDS SUMMARY | 2025-07-05 15:17 | XMS_ITS | Encounter Summary ---
Author Organization [facility] Address [address] [place] [address] Care Team Providers Care All Round Butcher Name Role Phone Charo Chakraborty MD Primary Care Provider [phone]- [phone] Reason for Visit * Reason Comments E-prescribe Rx Request Encounter Details Date Type Department Care Team Description 05/30/2021 Refill Internal Medicine - [address], [address] [place] [address] Charo Chakraborty MD [address] [place] [phone] E-prescribe Rx Request Social History Tobacco [...] encounter Miscellaneous Notes * Telephone Encounter - Corrina [place] - 06/08/2021 3:44 PM EDT SAMUEL 03/31/2021 NOV 07/04/2021 documented in this encounter Plan of Treatment Not on file documented as of this encounter Visit Diagnoses Not on filedocumented in this encounter Care Teams All Round Butcher Relationship Specialty Start Date End Date Charo Chakraborty MD PCP - General Internal Medicine 02/14/18 documented as of this encounter
--- OUTSIDE RECORDS SUMMARY | 2025-07-05 15:17 | XMS_ITS | Encounter Summary ---
Author Organization [facility] Address [address] [place] [address] Care Team Providers Care Sales Development Manager Name Role Phone Charo Chakraborty MD Primary Care Provider [phone]- [phone] Reason for Visit * Reason Onset Date Comments Medication 06/14/2021 Encounter Details Date Type Department Care Team Description 06/14/2021 Telephone Pulmonology - [place] [address] [facility] [address] [place] [address] Madina Carter, TONNY [address] [address] Medication Social History Tobacco Use Types Packs/Day [...] have Coronavirus / COVID-19? No / Unsure 06/08/2021 2:15 PM EDT documented as of this encounter Miscellaneous Notes * Telephone Encounter - Madina Carter APRN - 06/14/2021 1:06 PM EDT Sent Deliresp 250mcg daily to her pharmacy. Will reevaluate in 4 weeks and will sent increased doseif patient tolerating well. * Telephone Encounter - Leesa Diego - 06/14/2021 12:37 PM EDT Patient calling she still waiting for her new medication for the asthma that was mention to her. Patient don't know the name of it. 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
--- OUTSIDE RECORDS SUMMARY | 2025-07-05 15:17 | XMS_ITS | Encounter Summary ---
Author Organization [facility] Address [address] [place] [address] Care Team Providers Care Rivet Catcher Name Role Phone Charo Chakraborty MD Primary Care Provider [phone]- [phone] Encounter Details Date Type Department Care Team Description 09/10/2019 Hospital Medical Records [address] [place] [address] Sebas Serrano Social History Tobacco Use Types Packs/Day Years [...] on filedocumented in this encounter Care Teams Rivet Catcher Relationship Specialty Start Date End Date Charo Chakraborty MD PCP - General Internal Medicine 02/14/18 documented as of this encounter
--- OUTSIDE RECORDS SUMMARY | 2025-07-05 15:17 | XMS_ITS | Encounter Summary ---
Author Organization [facility] Address [address] [place] [address] Care Team Providers Care Sales Representative Electric Service Name Role Phone Charo Chakraborty MD Primary Care Provider [phone]- [phone] Reason for Visit * Reason Onset Date Comments refill request 05/22/2021 Encounter Details Date Type Department Care Team Description 05/22/2021 Refill Adult Medicine [address] [place] [address] [address] Charo Chakraborty MD [address] [place] [phone] refill request Social History Tobacco Use [...] Miscellaneous Notes * Telephone Encounter - Amelia Benavidez RMA - 05/22/2021 4:26 PM EDT No visits with results within 1 Month(s) from this visit. Latest known visit with results is: Orders Only on 03/31/2021 Component Date Value ??? GLUCOSE 03/31/2021 131* ??? Blood Urea Nitrogen 03/31/2021 13 ??? CREAT 03/31/2021 0.68 GLOMERULAR FILTRATION RA* 03/31/2021 > 60 ??? NA 03/31/2021 141 ??? K 03/31/2021 4.2 ??? CL 03/31/2021 106 ??? CARBON DIOXIDE (CO2) 03/31/2021 29 ??? ANION GAP 03/31/2021 6 ??? CALCIUM 03/31/2021 9.5 ??? TOTAL PROTEIN (TP) 03/31/2021 7.2 ??? Albumin 03/31/2021 4.0 ??? SGOT 03/31/2021 24 ??? SGPT 03/31/2021 69* ??? BILIRUBIN TOTAL 03/31/2021 0.3 ??? ALK PHOS 03/31/2021 83 ??? WHITE BLOOD COUNT 03/31/2021 6.0 ??? RED BLOOD COUNT 03/31/2021 5.1* ??? Hemoglobin 03/31/2021 15.3 ??? Hematocrit 03/31/2021 47.6* ??? MEAN CORPUSCULAR VOLUME 03/31/2021 93.5 ??? MEAN CORPUSCULAR HEMOGLO* 03/31/2021 30.1 ??? MEAN CORPUSCULAR HGB CONC 03/31/2021 32.1 ??? RED CELL DISTRIBUTION WI* 03/31/2021 12.4 ??? PLT COUNT 03/31/2021 210 ??? MEAN PLATELET VOLUME 03/31/2021 11.5* ??? NRBC % AUTO 03/31/2021 0.0 ??? NEUTROPHILS % 03/31/2021 54.0 ??? LYMPH % 03/31/2021 38.4 ??? MONO % 03/31/2021 6.9 ??? EOS % 03/31/2021 0.3 ??? BASO % 03/31/2021 0.2 ??? IMMATURE GRANULOCYTES % 03/31/2021 0.2 ??? NRBC # AUTO 03/31/2021 0.00 ??? NEUT # 03/31/2021 3.23 ??? LYMPH # 03/31/2021 2.29 ??? MONO # 03/31/2021 0.41 ??? EOS # 03/31/2021 0.02 ??? BASO # 03/31/2021 0.01 ??? IMMATURE GRANULOCYTES # 03/31/2021 0.01 ??? MAGNESIUM (MG) 03/31/2021 2.1 ??? LIPASE 03/31/2021 153 ??? TSH 03/31/2021 1.49 * Telephone Encounter - Kateryna Harvey - 05/22/2021 4:19 PM EDT Patient would like script to be: E-PRESCRIBED/FAXED TO PHARMACY WHEN WAS THE PATIENT'S LAST APPOINTMENT IN ADULT MEDICINE? 03/31/2021 WHEN WAS THE LAST TIME THE PATIENT SAW THEIR PCP? Same as above Does patient have an upcoming appointment? Yes 06/16/2021 (THE MEDICATION REQUESTED IS ON THE MED LIST ABOVE) All of the medications requested were on the CURRENT MEDS list Did you check the Pharmacy information above?: YES Patient wants: 90 -day supply Is this a mail order prescription request ? YES If the refill is from a FAXED refill request what is the RX # listed on the fax? Patients current insurance carrier is: Payor: [facility] / Plan: [facility] $0 [id number] / Product Type: MEDICARE RISK documented in this encounter Plan of [...] of 37.0 to 37.9 in adult (HCC) Type II or unspecified type diabetes [...] reflux documented in this encounter Care Teams Sales Representative Electric Service Relationship Specialty Start Date End Date Charo Chakraborty MD PCP - General Internal Medicine 02/14/18 documented as of this encounter
--- OUTSIDE RECORDS SUMMARY | 2025-07-05 15:17 | XMS_ITS | Encounter Summary ---
Author Organization [facility] Address [address] [place] [address] Care Team Providers Care Set Up Mechanic Heading Machines Name Role Phone Charo Chakraborty MD Primary Care Provider [phone]- [phone] Encounter Details Date Type Department Care Team Description 12/14/2019 Telephone Pulmonology - [place] [address] [facility] [address] [place] [address] Brando Humphrey MD [address] [facility] [address] [place] [address] Social History Tobacco Use Types Packs/Day Years [...] on filedocumented in this encounter Care Teams Set Up Mechanic Heading Machines Relationship Specialty Start Date End Date Charo Chakraborty MD PCP - General Internal Medicine 02/14/18 documented as of this encounter
--- OUTSIDE RECORDS SUMMARY | 2025-07-05 15:17 | XMS_ITS | Encounter Summary ---
Author Organization [facility] Address [address] [place] [address] Care Team Providers Care Link Cutter Name Role Phone Charo Chakraborty MD Primary Care Provider [phone]- [phone] Reason for Visit * Reason Onset Date Comments Medication 12/14/2019 Encounter Details Date Type Department Care Team Description 12/14/2019 Telephone Pulmonology - [place] [address] [facility] [address] [place] [address] Brando Humphrey MD [address] [facility] [address] [place] [address] Medication Social History Tobacco Use Types [...] * Telephone Encounter - Loreta Mobley - 12/16/2019 3:42 PM EDT Tried calling the pharmacy to let them know this but their phone's are down. * Telephone Encounter - Brando Humphrey MD - 12/15/2019 1:06 PM EDT 1 tablets ( 250 mg) 3 times weekly, mean, 1 table Saturday, Saturday and Saturday. * Telephone Encounter - Loreta Mobley - 12/15/2019 9:59 AM EDT Please advise, antibitioc azithromyocin directions are conflicting- please clarify. * Telephone Encounter - Hammad Barker - 12/14/2019 3:46 PM EDT Who is calling? A pharmacist: Pharmacy: Dg Pharmacist Name: FAX Pharmacy Name of the medication Azithromycin 250mg tablets 6-pk What is the specific problem or interaction? Need clarification on instructions , per pharmacy two sets of directions. If the patient is having a problem with taking the med - how long has the problem been going on? 12.14.2019 documented in this encounter Plan of Treatment Not on file documented as of this encounter Visit Diagnoses Not on filedocumented in this encounter Care Teams Link Cutter Relationship Specialty Start Date End Date Charo Chakraborty MD PCP - General Internal Medicine 02/14/18 documented as of this encounter
--- OUTSIDE RECORDS SUMMARY | 2025-07-05 15:17 | XMS_ITS | Encounter Summary ---
Author Organization [facility] Address [address] [place] [address] Care Team Providers Care Loading Inspector Name Role Phone Charo Chakraborty MD Primary Care Provider [phone]- [phone] Reason for Visit * Reason Onset Date Comments refill request 04/11/2021 Encounter Details Date Type Department Care Team Description 04/11/2021 Refill Internal Medicine - [address], [address] [place] [address] Charo Chakraborty MD [address] [place] [phone] refill request Social History Tobacco Use [...] * Telephone Encounter - Corrina Wood - 04/11/2021 10:47 AM EDT Patient would like script to be: [...] the RX # listed on the fax? N/A Patients current insurance carrier is: Payor: [facility] / Plan: [facility] $0 [id number] / Product Type: MEDICARE RISK documented [...] Chronic obstructive pulmonary disease, unspecified COPD type ([facility]) Allergic rhinitis, unspecified seasonality, unspecified trigger TONY (obstructive sleep apnea) Obstructive sleep apnea (adult) (pediatric) Gastroesophageal reflux disease without esophagitis Esophageal reflux documented in this encounter Care Teams Loading Inspector Relationship Specialty Start Date End Date Charo Chakraborty MD PCP - General Internal Medicine 02/14/18 documented as of this encounter
--- OUTSIDE RECORDS SUMMARY | 2025-07-05 15:17 | XMS_ITS | Clinical Summary ---
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 Medications cyclobenzaprine (FLEXERIL) 5 mg tablet Take 2 tablets (10 mg total) by mouth 3 (three) times a day if needed for muscle spasms. 024 Active loperamide (IMODIUM) 2 mg capsule Take 1 capsule (2 mg total) by mouth. 024 Active aluminum-magnesi um hydroxide-simeth icone (Mintox Maximum Strength) 400-400-40 mg/5 mL suspension Take 5 mL by mouth. Active roflumilast 250 mcg tablet TAKE ONE TABLET BY MOUTH EVERY DAY ^1R4 024 Active estradioL (ESTRACE) 0.01 % (0.1 mg/gram) vaginal cream APPLY A THIN LAYER TO VAGINA / VULVA TWO TIMES WEEKLY AT BEDTIME (BULK) 42.5 g 3 024 Active HealthyLax 17 gram packet TAKE THE CONTENTS OF ONE PACKET BY MOUTH ONCE DAILY (BULK) 30 packet 11 Active BD Ultra-Fine Short Pen Needle 31 gauge x 5/16 needle USE TO INJECT INSULIN FOUR TIMES A DAY (BULK) 100 each Active pilocarpine (Salagen, pilocarpine,) 5 mg tabletIndication s:Dry mouth Take 1 tablet (5 mg total) by mouth 2 (two) times a day. 60 each 025 2025 Active fluticasone propionate (FLONASE) 50 mcg/actuation nasal spray Administer 2 sprays into each nostril 1 (one) time each day. 48 g 10 Active incontinence pad, liner, disp padIndications:D iabetes mellitus type 2 with neurological manifestations (CMS/HCC V24, CMS/HCC V28),Urinary incontinence, unspecified type 1 each 1 (one) time each day. 100 each Active blood sugar diagnostic (OneTouch Verio test strips) test strip Use as instructed 100 strip 1 Active cholecalciferol (VITAMIN D-3) 50 mcg (2,000 unit) capsule TAKE 1 CAPSULE BY MOUTH DAILY ^1R2 30 capsule 9 025 Active lidocaine-priloc keenan (EMLA) 2.5-2.5 % cream APPLY TOPICALLY ONE TIME FOR 1 DOSE 30 g 3 025 Active FLUoxetine (PROzac) 20 mg capsule TAKE ONE CAPSULE BY MOUTH EVERY DAY ^1R1 30 capsule 5 025 Active pantoprazole (PROTONIX) 40 mg EC tablet TAKE ONE TABLET BY MOUTH EVERY DAY - DO NOT CRUSH, CHEW, OR SPLIT ^1R1 30 tablet Active glipiZIDE (GLUCOTROL) 10 mg tablet TAKE ONE TABLET BY MOUTH TWICE A DAY BEFORE MEALS ^1R1,1R4 60 tablet Active cetirizine (ZyrTEC) 10 mg tablet TAKE ONE TABLET BY MOUTH EVERY DAY ^1R1 30 tablet Active Mounjaro 15 mg/0.5 mL injectionIndicat ions:Class 1 obesity due to excess calories with serious comorbidity and body mass index (BMI) of 34.0 to 34.9 in adult INJECT 0.5ML (15MG TOTAL) UNDER THE SKIN EVERY 7 DAYS (BULK) 2 mL Active magnesium oxide (MAG-OX) 400 mg (241.3 elemental magnesium) tablet Take 1 tablet (400 mg total) by mouth 1 (one) time each day. 30 tablet Active losartan (COZAAR) 50 mg tablet Take 1 tablet (50 mg total) by mouth 1 (one) time each day. 30 tablet Active albuterol HFA (PROAIR HFA ; PROVENTIL HFA ; VENTOLIN HFA) 90 mcg/actuation inhaler INHALE TWO PUFFS BY MOUTH EVERY 6 HOURS IF NEEDED FOR WHEEZING (BULK) 8.5 g Active alcohol swabs pads, medicated USE FOUR TIMES A DAY BEFORE INSULIN INJECTION AND TEST BLOOD SUGAR (BULK) 100 each Active HumaLOG KwikPen Insulin 100 unit/mL injection pen INJECT 10 UNITS UNDER THE SKIN THREE TIMES A DAY BEFORE MEALS (BULK) 9 mL Active cyclobenzaprine (FLEXERIL) 10 mg tablet TAKE ONE TABLET BY MOUTH THREE TIMES A DAY NEEDED FOR MUSCLE SPASMS (TRAYS) ^1R1,1R2,1R4 90 tablet Active SUMAtriptan (IMITREX) 25 mg tabletIndication s:Other migraine with status migrainosus, intractable Take 1 tablet (25 mg total) by mouth 1 (one) time if needed for migraine. May repeat dose once in 2 hours if no relief. Do not exceed 2 doses in 24 hours. 27 tablet 025 2025 Active omega-3 acid ethyl esters (LOVAZA) 1 gram capsuleIndicatio ns:Type 2 diabetes mellitus with other specified complication, with long-term current use of insulin ([facility] V24, [facility] V28),Polyneuropa thy Take 1 capsule (1 g total) by mouth 2 (two) times a day. 120 capsule 3 Active furosemide (LASIX) 20 mg tablet TAKE ONE TABLET BY MOUTH EVERY DAY ^1R1 30 tablet 5 Active meloxicam (MOBIC) 7.5 mg tablet TAKE ONE TABLET BY MOUTH EVERY DAY ^1R1 30 tablet 3 Active sucralfate (CARAFATE) 100 mg/mL suspension TAKE 10ML BY MOUTH EVERY 6 HOURS BEFORE MEALS AND AT BEDTIME (BULK) 500 mL 7 Active triamcinolone (KENALOG) 0.1 % cream APPLY TO AFFECTED AREA(S) TWO TIMES A DAY (BULK) 60 g 3 Active ammonium lactate (AMLACTIN) 12 % cream Apply topically if needed for dry skin. 560 g 2 025 2025 Active Dupixent Pen 300 mg/2 mL pen Inject 2 mL (300 mg total) under the skin every 14 (fourteen) days. Active gabapentin (NEURONTIN) 800 mg tablet Take 1 tablet (800 mg total) by mouth 2 (two) times a day. Active lidocaine (LIDODERM) 5 % patch Apply 1 patch topically 1 (one) time each day. Remove & discard patch within 12 hours or as directed by MD. Active riboflavin (VITAMIN B2) 400 mg tablet Take 1 tablet (400 mg total) by mouth 1 (one) time each day. Active zolpidem (AMBIEN) 10 mg tablet Take 1 tablet (10 mg total) by mouth at bedtime as needed. at bedtime for sleep Max Daily Amount: 10 mg Active ipratropium-albu teroL (DUONEB) 0.5-2.5 mg/3 mL nebulizer solutionIndicati ons:Moderate asthma with exacerbation, unspecified whether persistent Take 3 mL by nebulization 4 (four) times a day. 360 mL 025 2025 Active diphenhydrAMINE (BENADRYL) 25 mg capsuleIndicatio ns:Itch TAKE ONE CAPSULE BY MOUTH EVERY 6 HOURS NEEDED FOR ITCHING (VIAL) 30 capsule 1 Active EPINEPHrine (EPIPEN) 0.3 mg/0.3 mL injectionIndicat ions:Mild intermittent asthma without complication INJECT 1 SYRINGE INTRAMUSCULARLY NEEDED FOR ANAPHYLAXIS (BULK) 2 each 1 Active hydrOXYzine HCL (ATARAX) 50 mg tabletIndication s:Anxiety TAKE ONE TABLET BY MOUTH TWICE A DAY (VIAL) 30 tablet 1 Active simethicone (MYLICON,GAS-X) 180 mg capsule TAKE ONE CAPSULE BY MOUTH TWICE A DAY (VIAL) 56 capsule Active azithromycin (ZITHROMAX) 250 mg tablet Take 2 tablets (500 mg total) by mouth 1 (one) time each day for 1 day, THEN 1 tablet (250 mg total) 1 (one) time each day for 4 days. 6 each 025 2024 Active atorvastatin (LIPITOR) 10 mg tablet Take 1 tablet (10 mg total) by mouth 1 (one) time each day. 024 2024 Discontinued diphenhydrAMINE (Banophen) 25 mg capsule TAKE ONE CAPSULE BY MOUTH EVERY DAY NEEDED FOR ITCHING OR ALLERGIES (VIAL) 024 2024 Discontinued fluticasone (Flonase Sensimist) 27.5 mcg/actuation nasal spray Administer 2 sprays into affected nostril(s). 2024 Discontinued fluticasone-umec lidinium-vilante rol (Trelegy Ellipta) 100-62.5-25 mcg inhaler Inhale 1 puff (100 mcg total) by mouth. 2024 Discontinued hydrocortisone valerate (WEST-JAYLNEE) 0.2 % ointment Apply to affected areas on body 2 times a day for 7 days. Avoid face and groin 2024 Discontinued ketotifen (ZADITOR) 0.025 % ophthalmic solution Administer 1 drop into affected eye(s). /14/ 2025 Discontinued meclizine (ANTIVERT) 25 mg tablet Take 1 tablet (25 mg total) by mouth. 024 2024 Discontinued pantoprazole (PROTONIX) 20 mg EC tablet Take 1 tablet (20 mg total) by mouth 1 (one) time each day. 024 2024 Discontinued gabapentin (Neurontin) 400 mg capsule Take 1 capsule (400 mg total) by mouth 3 (three) times a day. 90 each 3 024 2024 Discontinued albuterol 2.5 mg /3 mL (0.083 %) nebulizer solution INHALE THE CONTENTS OF 1 VIAL VIA NEBULIZER EVERY 6 HOURS NEEDED FOR WHEEZING (BULK) 360 mL 10 024 2024 Discontinued( Stop Taking at Discharge) omeprazole (PriLOSEC) [address] capsule Take 1 capsule (20 mg total) by mouth 1 (one) time each day. 90 capsule 3 2024 Discontinued methocarbamoL (ROBAXIN) 750 mg tablet Take 1 tablet (750 mg total) by mouth 4 (four) times a day for 5 days. 20 each 2024 Discontinued methylPREDNISolo ne (MEDROL DOSPAK) 4 mg tabletIndication s:Bronchitis TAKE DIRECTED ON PACKAGE (BULK) 21 tablet 025 2024 Discontinued gabapentin (NEURONTIN) 800 mg tabletIndication s:Polyneuropathy Take 1 tablet (800 mg total) by mouth 1 (one) time each day. 30 each 025 2024 Discontinued docusate sodium (COLACE) 100 mg capsule TAKE ONE CAPSULE BY MOUTH EVERY DAY (VIAL) 30 capsule 5 025 2024 Discontinued EPINEPHrine (EPIPEN) 0.3 mg/0.3 mL injectionIndicat ions:Mild intermittent asthma without complication INJECT 1 SYRINGE INTRAMUSCULARLY NEEDED FOR ANAPHYLAXIS (BULK) 2 each 1 025 2024 Discontinued diphenhydrAMINE (BENADRYL) 25 mg capsuleIndicatio ns:Itch TAKE ONE CAPSULE BY MOUTH EVERY 6 HOURS NEEDED FOR ITCHING (VIAL) 30 capsule 1 025 2024 Discontinued hydrOXYzine HCL (ATARAX) 25 mg tablet TAKE ONE TABLET BY MOUTH FOUR TIMES A DAY (#32 VIAL) ^1R4 60 tablet 5 025 2024 Discontinued( Ineffective) ascorbic acid (VITAMIN C) 1,000 mg tablet TAKE ONE TABLET BY MOUTH EVERY DAY ^1R2 30 tablet 5 025 2024 Discontinued hydrOXYzine pamoate (VISTARIL) 100 mg capsuleIndicatio ns:Insomnia, unspecified type Take 1 capsule (100 mg total) by mouth at bedtime as needed for itching. 30 capsule 2 025 2024 Discontinued( Formulary change) lidocaine (LIDODERM) 5 % patchIndications :Other diabetic neurological complication associated with type 2 diabetes mellitus (CMS/[facility] V24, CMS/[facility] V28) APPLY 1 PATCH TOPICALLY ONCE DAILY (BULK) 30 patch 1 025 2024 Discontinued simethicone (MYLICON,GAS-X) 180 mg capsule TAKE ONE CAPSULE BY MOUTH TWICE A DAY (VIAL) 56 capsule 025 2024 Discontinued hydrOXYzine HCL (ATARAX) 50 mg tablet Take 1 tablet (50 mg total) by mouth 2 (two) times a day. 2024 Discontinued( Reorder) hydrOXYzine HCL (ATARAX) 50 mg tabletIndication s:Anxiety Take 1 tablet (50 mg total) by mouth 2 (two) times a day. 30 tablet 1 025 2024 Discontinued methylPREDNISolo ne (MEDROL DOSPAK) 4 mg tablet Take as directed on package. 21 tablet 025 2024 Active Problems Problem Noted Date Diagnosed Date Asthma exacerbation 06/13/2025 Abdominal pain 07/29/2024 Vertigo 01/31/2021 Hot flashes 11/17/2020 Pain of upper abdomen 11/17/2020 Palpitations 11/17/2020 Tubular adenoma 11/17/2020 Allergic conjunctivitis, bilateral 10/03/2020 Epistaxis 10/03/2020 Acute midline low back pain without sciatica Spondylosis of lumbar region without myelopathy or radiculopathy 06/15/2020 Severe obesity (BMI 35.0-39. 9) with comorbidity ([facility] V24, [facility] V28) 02/02/2019 Constipation 04/23/2018 TONY (obstructive sleep apnea) 03/25/2018 Overview (07/29/2024): [facility] Polysomnogram: Date 07/13/2020; [...] GERD (gastroesophageal reflux disease) 8 Asthma 02/18/2018 Assessment & Plan (07/01/2025 7:29 PM EDT): Chronic obstructive pulmonar y disease (COPD) ([facility] V24, [facility] V28) 02/18/2018 Diabetes mellitus type 2 wit h neurological manifestations ([facility] V24, [facility] V28) 02/18/2018 Assessment & Plan (07/01/2025 7:29 PM EDT): Orders: Hemoglobin A1c; Future Panic attack 04/08/2017 Osteoarthrosis 05/17/2015 Encounters Date Type Department Care Team Description 07/02/2025 Results Follow-Up Internal Medicine [address] [phone] Charo Chakraborty MD 07/02/2025 Telephone Internal Medicine [address] [phone] Samara Wood [place] 07/01/2025 1:00 PM EDT Office Visit Internal Medicine [address] [phone] Charo Chakraborty MD Mild intermittent asthma without complication (Primary Dx); Diabetes mellitus type 2 with neurological manifestations (CMS/HCC V24, CMS/HCC V28); Encounter for subsequent annual wellness visit (AWV) in Medicare patient 06/17/2025 11:00 AM EDT Nutrition Internal Medicine [facility] [address] [phone] [address] Severe obesity (BMI 35.0-39.9) with comorbidity (CMS/HCC V24, CMS/HCC V28) (Primary Dx); Diabetes mellitus type 2 with neurological manifestations (CMS/HCC V24, CMS/HCC V28) 06/15/2025 Telephone Internal Medicine [address] [phone] Charo Chakraborty MD 06/12/2025 8:02 PM EDT - 06/14/2025 1:29 PM EDT Hospital Encounter [facility] [address] [place] [phone] Hakeem Nava MD Santoyo-Pacheco, Omar D, MD Alam, Aroosa, MD Shortness of breath (Primary Dx); Moderate asthma with exacerbation, unspecified whether persistent [place]charge Disposition[place] [facility] [place] 2:30 PM EDT Office Visit Orthopedic Surgery [facility] [address] [phone] Aquilino Calderon DPM Diabetes mellitus type 2 with neurological manifestations (CMS/HCC V24, [facility] V28) (Primary Dx); PVD (peripheral vascular disease) ([facility] V24); Arthritis of both feet; Onychomycosis; Xerosis cutis 06/03/2025 Telephone Internal Medicine [facility] [address] [phone] Toño Petit MA 05/26/2025 2:30 PM EDT Office Visit Internal Medicine [facility] 175 [facility] [address] [place] [phone] Lucía España, SAMMI Other migraine with status migrainosus, intractable (Primary Dx); Insomnia, unspecified type; Type 2 diabetes mellitus with other specified complication, with long-term current use of insulin ([facility] V24, [facility] V28); Polyneuropathy 05/07/2025 Telephone Internal Medicine [address] [phone] Charo Chakraborty MD 05/06/2025 11:41 PM EDT - 05/07/2025 12:59 AM EDT Emergency [facility] Emergency [address] [place] [phone] Samreen Scott MD Other migraine without status migrainosus, not intractable (Primary Dx) Discharge Disposition: Home or Self Care 05/06/2025 8:45 AM EDT Office Visit Bariatric Surgery [facility] 175 [facility] [address] [place] [phone] Maira Zurita MD Class 1 obesity due to excess calories with body mass index (BMI) of 30.0 to 30.9 in adult, unspecified whether serious comorbidity present (Primary Dx) 04/08/2025 11:00 AM EDT Consult Orthopedic Surgery [facility] 250 175 [facility] [address] [place] [phone] Aquilino Calderon DPM Diabetes mellitus type 2 with neurological manifestations ([facility] V24, [facility] V28) (Primary Dx); Arthritis of both feet; PVD (peripheral vascular disease) ([facility] V24); Neuropathy; Onychomycosis; Callus 04/07/2025 Telephone Internal Medicine - [address] [place] [phone] Charo Chakraborty MD from Last 3 Months Surgical History Surgery Date Site/Laterality Comments ANKLE SURGERY 2016 Right PROCEDURE: HISTORICAL ANKLE SURGERY; COMMENT: medial malleolar fracture SECTION PROCEDURE: HISTORICAL DELIVERY; COMMENT: x3 HYSTERECTOMY PROCEDURE: HISTORICAL HYSTERECTOMY HERNIA REPAIR PROCEDURE: HISTORICAL HERNIA REPAIR/ING COLONOSCOPY 05/24/2020 PROCEDURE: HISTORICAL COLONOSCOPY; COMMENT: tubular adenoma ESOPHAGOGASTRODUODENOSCOPY PROCEDURE: VA EGD TRANSORAL BIOPSY SINGLE/MULTIPLE; COMMENT: Performed in February 2021 during hospitalization APPENDECTOMY CHOLECYSTECTOMY Medical History Medical History Date Comments Asthma 02/18/2018 DX:Asthma Chronic obstructive pulmonar y disease (COPD) ([facility] V24, [facility] V28) 02/18/2018 DX:Chronic obstructi ve pulmonary disease (COPD) ([facility]) GERD (gastroesophageal reflux disease) 8 DX:GERD (gastroesophageal reflux disease) Allergic rhinitis 03/10/2018 DX:Allergic rh initis Anxiety 03/10/2018 DX:Anxiety Depression 03/10/2018 DX:Depression Diabetes mellitus type 2 wit h neurological manifestations ([facility] V24, [facility] V28) 02/18/2018 DX:Diabetes mellitus type 2 with neurological manifestations ([facility]) Hypertension 03/10/2018 DX:Hypertension Hypertriglyceridemia 03/10/2018 DX:Hypertri glyceridemia Insomnia 03/10/2018 DX:Insomnia Urinary incontinence 03/10/2018 DX:Urinary incontinence Venous insufficiency 03/10/2018 DX:Venous i nsufficiency Vitamin D deficiency 03/10/2018 DX:Vitamin D deficiency Diabetic peripheral neuropat hy ([facility] V24, [facility] V28) 02/01/2016 DX:Diabetic peripheral neuro geremias ([facility]) Panic attack 04/08/2017 DX:Panic attack Osteoarthrosis 05/17/2015 [...] file Travel History Travel Start Travel End [facility] 05/12/2025 06/12/2025 Obstetrics History Para Term AB IAB SAB [...] Mass Index 32.27 07/01/2025 1:00 PM EDT Plan of Treatment Upcoming Encounters Date Type Department Care Team (Late st Contact Info) Description 08/09/2025 2:30 PM EST Office Visit Orthopedic Surgery [facility] [address] [phone] Aquilino Calderon DPM [address] [phone] 09/16/2025 10:30 AM EST Nutrition Internal Medicine - [place] 175 [facility] [address] [place] [phone] Lacy Gonzalez, RD [address] [place] [phone] 11/04/2025 1:15 PM EST Office Visit Internal Medicine - [place] 175 [facility] [address] [place] [phone] Charo Chakraborty MD 175 [facility] [address] [place] [address] 11/09/2025 9:45 AM EST Office Visit Bariatric Surgery - [place] 175 [facility] [address] [place] [address] Maira Zurita MD [address] [place] [phone] Health Maintenance Due Date Last Done Comments Colorectal Cancer Screening: Colonoscopy 1955 Diabetes: Annual Foot Exam 1965 Diabetes: Annual Retina Eye Exam 1965 DTaP,Tdap,and Td Vaccines (1 - Tdap) 1974 Zoster Vaccines (1 of 2) 2005 RSV Immunization Adult Patients (1 - Risk 60-74 years 1-dose series) 2015 Hepatitis C Screening 09/08/2022 Social Influencers of Health Screening 09/08/2022 COVID-19 Vaccine ( - season) 2025 Influenza Vaccine (#1) 2025 Diabetes: Blood Sugar Control Test (HGBA1C) 12/30/2025 07/01/2025, 01/15/2025, 07/24/2024 Diabetes: Annual Urine Albumin-Creatinine Ratio (uACR) 01/15/2026 01/15/2025 Diabetes: Annual GFR (Glomerular Filtration Rate) 06/13/2026 06/13/2025, 06/12/2025, 11/04/2024, Additional history exists Hypertension/CHF/CAD Annual BMP Blood Test 06/13/2026 06/13/2025, 06/12/2025, 11/04/2024, Additional history exists Falls Risk Assessment 06/14/2026 06/14/2025 Medicare Annual Wellness Visit 07/01/2026 07/01/2025 Breast Cancer Screening 10/22/2026 10/22/19, 09/04/2023, 08/22/2022, Additional history exists Cholesterol Screening (Lipid Panel) 01/15/2030 01/15/2025 Osteoporosis Screening (Bone Density Screening) 05/29/2033 05/29/2023 Pneumococcal Vaccine: 50+ Years Completed 07/24/2023, 03/31/2008 Depression Screening Completed 07/01/2025 HIB Vaccines Aged Out No longer eligi [...] Procedure Name Priority Date/Time Associated Diagnosis Comments HEMOGLOBIN A1C Routine 07/01/2025 1:35 PM EDT Diabetes mellitus type 2 with neurological manifestations ([facility] V24, [facility] V28) ECG ANNOTATED 06/15/2025 POCT GLUCOSE BLOOD Routine 06/14/2025 11 :02 AM EDT POCT GLUCOSE BLOOD Routine 06/14/2025 7: 57 AM EDT SST - GOLD Routine 06/14/2025 6:23 AM EDT EXTRA TUBES Routine 06/14/2025 6:23 AM EDT CBC WITH AUTO DIFFERENTIAL Routine 06/14/2025 6:23 AM EDT CBC AND DIFFERENTIAL Routine 06/14/2025 6:23 AM EDT POCT GLUCOSE BLOOD Routine 06/13/2025 7: 47 PM EDT HOME O2 EVAL (DESATURATION SCREEN) Routine 06/13/2025 6:30 PM EDT POCT GLUCOSE BLOOD Routine 06/13/2025 4: 43 PM EDT POCT GLUCOSE BLOOD Routine 06/13/2025 11 :01 AM EDT CBC WITH AUTO DIFFERENTIAL Routine 06/13/2025 6:10 AM EDT CBC AND DIFFERENTIAL Routine 06/13/2025 6:10 AM EDT BASIC METABOLIC PANEL Routine 06/13/2025 6:10 AM EDT CPAP NIV Routine 06/13/2025 5:25 AM EDT RESPIRATORY VIRUS PANEL MOLECULAR STUDY Routine 06/13/2025 5:07 AM EDT POCT GLUCOSE BLOOD Routine 06/13/2025 3: [address] ANGIO CHEST WO AND/OR W CONTRAST STAT 06/12/2025 11:51 PM EDT Shortness of breath LIPASE STAT 06/12/2025 9:30 PM EDT MAGNESIUM STAT 06/12/2025 9:30 PM EDT COMPREHENSIVE METABOLIC PANEL STAT 06/12/2025 9:30 PM EDT ECG 12-LEAD STAT 06/12/2025 9:26 PM EDT XR CHEST 1 VIEW STAT 06/12/2025 9:23 PM EDT LT BLUE - NA CITRATE Routine 06/12/2025 7:54 PM EDT EXTRA TUBES Routine 06/12/2025 7:54 PM EDT CBC WITH AUTO DIFFERENTIAL STAT 06/12/2025 7:54 PM EDT PROCALCITONIN STAT 06/12/2025 7:54 PM EDT B-TYPE NATRIURETIC PEPTIDE STAT 06/12/2025 7:54 PM EDT TROPONIN I HIGH SENSITIVITY STAT 06/12/2025 7:54 PM EDT CBC AND DIFFERENTIAL STAT 06/12/2025 7:54 PM EDT [id number], RSV, FLU A AND B QUALITATIVE RT-PCR, INTERNAL LAB STAT 06/12/2025 7:54 PM EDT MICROALBUMIN CREATININE URINE RATIO Routine 01/15/2025 11:31 AM EDT Diabetes mellitus type 2 with neurological manifestations ([facility] V24, [facility] V28) LIPID PANEL WITH REFLEX TO DIRECT LDL Routine 01/15/2025 11:31 AM EDT Hypertriglyceridemia MG MAMMO DIGITAL SCREENING W CURT BILAT Routine 10/22/2024 11:25 AM EST Encounter for screening mammogram for breast cancer LETTY DEXA AXIAL SKELETON Routine 05/29/2023 7:59 AM EDT Asymptomatic menopausal state from Last 3 Months or Most Recently Relevant to Health Maintenance Results * (ABNORMAL) Hemoglobin A1c (07/01/2025 1:35 PM EDT) Hemoglobin A1C 7.6(H) <6.5 % LAB CHEMISTRY METHOD 07/01/2025 10:[address] [facility] Mean Bld Glu Estim. 171 mg/dL LAB CHEMISTRY METHOD 07/01/2025 10:22 PM EDT [facility] Blood Venous blood specimen / Unknown Venipuncture / Unknown 07/01/2025 1:35 PM EDT 07/01/2025 1:35 PM EDT Charo Chakraborty MD LAB BLOOD ORDERABLES Final Res ult [facility] [address] [place] [address], [place] [phone] * ECG-Annotated (06/15/2025) us Provider Onbase ECG ORDERABLES Final Result * (ABNORMAL) POCT Glucose, blood (06/14/2025 11:02 AM EDT) Only the most recent of6 resultswithin the time period is included. Glucose POCT 234(H) 70 - 100 mg/dL 06/14/2025 11:04 AM EDT [facility] Blood Capillary blood specimen / Unknown 06/14/2025 11:02 AM EDT 06/14/2025 11:05 AM EDT John España MD LAB POINT OF CARE TE ST DOCKED DEVICE UNSOLICITED RESULTS Final Result Performing Organization Address City/[facility]/ZIP Co de Phone Number [facility] [address] [place] [address], [place] [phone] * SST tube (06/14/2025 6:23 AM EDT) Extra Tube Hold for add-ons. 06/14/2025 8:01 AM EDT [facility] Comment:Auto resulted. Blood Venous blood specimen / Unknown Venipuncture / Unknown 06/14/2025 6:23 AM EDT 06/14/2025 6:35 AM EDT us John España MD LAB BLOOD ORDERABLES Final Resul t [facility] [address] [place] [address], * (ABNORMAL) CBC auto differential (06/14/2025 6:23 AM EDT) Only the most recent of3 resultswithin the time period is included. WBC 11.9(H) 4.8 - 10.8 K/mcL LAB HEMETOLOGY METHOD 06/14/2025 6:44 AM EDT [facility] RBC 4.40 3.80 - 4.80 M/mcL LAB HEMETOLOGY METHOD 06/14/2025 6:44 AM EDT [facility] Hemoglobin 13.1 11.5 - 16.0 g/dL LAB HEMETOLOGY METHOD 06/14/2025 6:44 AM EDT [facility] Hematocrit 39.2 35.0 - 47.0 % LAB HEMETOLOGY METHOD 06/14/2025 6:44 AM EDT [facility] MCV 88.9 79.0 - 98.0 FL LAB HEMETOLOGY METHOD 06/14/2025 6:44 AM EDT [facility] MCH 29.7 27.0 - 32.0 pcg LAB HEMETOLOGY METHOD 06/14/2025 6:44 AM EDT [facility] MCHC 33.4 32.0 - 37.0 g/dL LAB HEMETOLOGY METHOD 06/14/2025 6:44 AM EDT [facility] RDW 12.7 11.0 - 15.0 % LAB HEMETOLOGY METHOD 06/14/2025 6:44 AM EDT [facility] Platelets 211 130 - 400 K/mcL LAB HEMETOLOGY METHOD 06/14/2025 6:44 AM EDT [facility] MPV 10.3 7.0 - 11.0 FL LAB HEMETOLOGY METHOD 06/14/2025 6:44 AM [facility] NRBC 0.0 <1.0 % LAB HEMETOLOGY METHOD 06/14/2025 6:44 AM [facility] NRBC Absolute 0.00 <0.10 K/mcL LAB HEMETOLOGY METHOD 06/14/2025 6:44 AM [facility] Neutrophils Relative 67.9 % LAB HEMETOLOGY METHOD 06/14/2025 6:44 AM [facility] Lymphocytes Relative 25.6 % LAB HEMETOLOGY METHOD 06/14/2025 6:44 AM [facility] Monocytes Relative 5.7 % LAB HEMETOLOGY METHOD 06/14/2025 6:44 AM [facility] Eosinophils Relative 0.3 % LAB HEMETOLOGY METHOD 06/14/2025 6:44 AM [facility] Basophils Relative 0.3 % LAB HEMETOLOGY METHOD 06/14/2025 6:44 AM [facility] Immature Granulocytes Relative 0.2 % LAB HEMETOLOGY METHOD 06/14/2025 6:44 AM [facility] Neutrophils Absolute 8.09(H) 1.50 - 7.00 K/mcL LAB HEMETOLOGY METHOD 06/14/2025 6:44 AM [facility] Lymphocytes Absolute 3.05 1.00 - 5.00 K/mcL LAB HEMETOLOGY METHOD 06/14/2025 6:44 AM [facility] Monocytes Absolute 0.68 0.20 - 1.00 K/mcL LAB HEMETOLOGY METHOD 06/14/2025 6:44 AM [facility] Eosinophils Absolute 0.03 0.00 - 0.50 K/mcL LAB HEMETOLOGY METHOD 06/14/2025 6:44 AM [facility] Basophils Absolute 0.04 0.00 - 0.20 K/mcL LAB HEMETOLOGY METHOD 06/14/2025 6:44 AM [facility] Immature Granulocytes Absolute 0.02 0.00 - 0.03 K/[facility] LAB HEMETOLOGY METHOD 06/14/2025 6:44 AM [facility] Blood Venous blood specimen / Unknown Venipuncture / Unknown 06/14/2025 6:23 AM EDT 06/14/2025 6:34 AM EDT Arsen MARSHALL LAB BLOOD ORDERABLES Kiki l Result [facility] [address] [place] [address], * (ABNORMAL) Basic metabolic panel (06/13/2025 6:10 AM EDT) Sodium 138 133 - 145 mmol/L LAB CHEMISTRY METHOD 06/13/2025 7:43 AM [facility] Potassium 4.8 3.5 - 5.5 mmol/L LAB CHEMISTRY METHOD 06/13/2025 7:43 AM [facility] Chloride 104 96 - 110 mmol/L LAB CHEMISTRY METHOD 06/13/2025 7:43 AM [facility] CO2 26 21 - 32 mmol/L LAB CHEMISTRY METHOD 06/13/2025 7:43 AM [facility] Anion Gap 8 3 - 11 LAB CHEMISTRY METHOD 06/13/2025 7:43 AM [facility] Glucose 242(H) 70 - 100 mg/dL LAB CHEMISTRY METHOD 06/13/2025 7:43 AM [facility] BUN 13 5 - 25 mg/dL LAB CHEMISTRY METHOD 06/13/2025 7:43 AM [facility] Creatinine 0.68 0.50 - 1.10 mg/dL LAB CHEMISTRY METHOD 06/13/2025 7:43 AM EDT [facility] eGFR 94 >=60 mL/min/1. 73m2 LAB CHEMISTRY METHOD 06/13/2025 7:43 AM EDT [facility] Comment:Calculation based on the Chronic Kidney Disease Epidemiology Collaboration (CKD-EPI) equation refit without adjustment for race. BUN/Creatinine Ratio 19.1 LAB CHEMISTRY METHOD 06/13/2025 7:43 AM EDT [facility] Calcium 9.0 8.5 - 10.5 mg/dL LAB CHEMISTRY METHOD 06/13/2025 7:43 AM EDT [facility] Blood Venous blood specimen / Unknown Venipuncture / Unknown 06/13/2025 6:10 AM EDT 06/13/2025 6:50 AM EDT us Hakeem Nava MD LAB BLOOD ORDERABLES Final Result [facility] [address] [place] [address], [place] [phone] * (ABNORMAL) Respiratory virus panel molecular study (06/13/2025 5:07 AM EDT) Adenovirus Detection by PCR Not Detected Not Detected LAB MICROBIOLOGY METHOD 06/13/2025 9:40 AM EDT [facility] Influenza A PCR Not Detected Not Detected LAB MICROBIOLOGY METHOD 06/13/2025 9:40 AM EDT [facility] Influenza B PCR Not Detected Not Detected LAB MICROBIOLOGY METHOD 06/13/2025 9:40 AM EDT [facility] Coronavirus 229E Not Detected Not Detected LAB MICROBIOLOGY METHOD 06/13/2025 9:40 AM EDT [facility] Coronavirus HKU1 Not Detected Not Detected LAB MICROBIOLOGY METHOD 06/13/2025 9:40 AM EDT [facility] Coronavirus OC43 Not Detected Not Detected LAB MICROBIOLOGY METHOD 06/13/2025 9:40 AM EDT [facility] Coronavirus NL63 Not Detected Not Detected LAB MICROBIOLOGY METHOD 06/13/2025 9:40 AM EDT [facility] Parainfluenza Virus 1 Not Detected Not Detected LAB MICROBIOLOGY METHOD 06/13/2025 9:40 AM EDT [facility] Parainfluenza Virus 2 Not Detected Not Detected LAB MICROBIOLOGY METHOD 06/13/2025 9:40 AM EDT [facility] Parainfluenza Virus 3 Not Detected Not Detected LAB MICROBIOLOGY METHOD 06/13/2025 9:40 AM EDT [facility] Parainfluenza Virus 4 Not Detected Not Detected LAB MICROBIOLOGY METHOD 06/13/2025 9:40 AM EDT [facility] RSV PCR Not Detected Not Detected LAB MICROBIOLOGY METHOD 06/13/2025 9:40 AM EDT [facility] Human Metapneumovirus A and B Not Detected Not Detected LAB MICROBIOLOGY METHOD 06/13/2025 9:40 AM EDT [facility] Rhinovirus/Entero virus Detected(A ) Not Detected LAB MICROBIOLOGY METHOD 06/13/2025 9:40 AM EDT [facility] Bordetella pertussis Not Detected Not Detected LAB MICROBIOLOGY METHOD 06/13/2025 9:40 AM EDT [facility] Bordetella parapertussis Not Detected Not Detected LAB MICROBIOLOGY METHOD 06/13/2025 9:40 AM EDT [facility] Mycoplasma pneumo by PCR Not Detected Not Detected LAB MICROBIOLOGY METHOD 06/13/2025 9:40 AM EDT [facility] Chlamydia pneumoniae Not Detected Not Detected LAB MICROBIOLOGY METHOD 06/13/2025 9:40 AM EDT [facility] SARS COV-2 Not Detected Not Detected LAB MICROBIOLOGY METHOD 06/13/2025 9:40 AM EDT [facility] Swab Both anterior nares / Unknown Non-blood Collection / Unknown 06/13/2025 5:07 AM EDT 06/13/2025 8:[address] [facility] ([facility]) [facility] - 06/13/2025 9:40 AM EDT Testing was performed using the [employer] Respiratory Pathogen PCR Assay. All results must [...] are below the limit of detection. us Maria Antonia MARSHALL LAB MICROBIOLOGY - GENERAL O RDERABLES Final Result [facility] ([facility]) [facility] [address] [place] [address], * CT Angio Chest wo and/or w Contrast (06/12/2025 11:51 PM EDT) Anatomical Region Laterality Modality Body Computed Tomogra phy 06/13/2025 12:0 3 AM EDT Impressions 06/13/2025 12:03 AM EDT 1. No acute intrathoracic findings. No evidence of pulmonary embolism. This document has been electronically signed by: Octavio Newman MD on 06/13/2025 00:03:01 Narrative 06/13/2025 12:03 AM EDT INDICATION: PE suspected, high prob CT angiography chest with contrast. 3D Postprocessing. Comparison: CT/OT/SR - CHEST C- CT - 08/01/22 11:08 EDT Findings: The heart is normal size. RV/LV ratio is normal. The thoracic aorta is normal caliber. No pulmonary artery filling defects. The visualized thyroid and mediastinum are unremarkable. Mild bibasilar atelectasis. The upper abdomen is unremarkable. The bones are intact. Procedure Note Octavio Newman - 06/13/2025 INDICATION: PE suspected, high prob CT angiography chest with contrast. 3D Postprocessing. Comparison: CT/OT/SR - CHEST C- CT - 08/01/22 11:08 EDT Findings: The heart is normal size. RV/LV ratio is normal. The thoracic aorta is normal caliber. No pulmonary artery filling defects. The visualized thyroid and mediastinum are unremarkable. Mild bibasilar atelectasis. The upper abdomen is unremarkable. The bones are intact. IMPRESSION: 1. No acute intrathoracic findings. No evidence of pulmonary embolism. This document has been electronically signed by: Octavio Newman MD on 06/13/2025 00:03:[address] PROCEDURES Final Res ult * (ABNORMAL) Magnesium (06/12/2025 9:30 PM EDT) Pathologist [facility] Magnesium 3.8(H) 1.9 - 2.6 mg/dL LAB CHEMISTRY METHOD 06/12/2025 10:03 PM EDT [facility] Blood Venous blood specimen / Unknown Venipuncture / Unknown 06/12/2025 9:30 PM EDT 06/12/2025 9:33 PM EDT Enzo MARSHALL LAB BLOOD ORDERABLES Final Result Performing Organization Address [facility]/ZIP Co de Phone Number [facility] [address] [place] [address], [place] [phone] * (ABNORMAL) Lipase (06/12/2025 9:30 PM EDT) Pathologist [facility] Lipase 166(H) 13 - 75 unit/L LAB CHEMISTRY METHOD 06/12/2025 10:02 PM EDT [facility] Blood Venous blood specimen / Unknown Venipuncture / Unknown 06/12/2025 9:30 PM EDT 06/12/2025 9:33 PM EDT Enzo MARSHALL LAB BLOOD ORDERABLES Final Result Performing Organization Address [facility]/ZIP Co de Phone Number [facility] [address] [place] [address], [place] [phone] * (ABNORMAL) Comprehensive metabolic panel (06/12/2025 9:30 PM EDT) Sodium 139 133 - 145 mmol/L LAB CHEMISTRY METHOD 06/12/2025 10:02 PM [facility] Potassium 4.0 3.5 - 5.5 mmol/L LAB CHEMISTRY METHOD 06/12/2025 10:02 PM [facility] Chloride 106 96 - 110 mmol/L LAB CHEMISTRY METHOD 06/12/2025 10:02 PM [facility] CO2 27 21 - 32 mmol/L LAB CHEMISTRY METHOD 06/12/2025 10:02 PM [facility] Anion Gap 6 3 - 11 LAB CHEMISTRY METHOD 06/12/2025 10:02 PM [facility] Glucose 144(H) 70 - 100 mg/dL LAB CHEMISTRY METHOD 06/12/2025 10:02 PM [facility] BUN 12 5 - 25 mg/dL LAB CHEMISTRY METHOD 06/12/2025 10:02 PM [facility] Creatinine 0.67 0.50 - 1.10 mg/dL LAB CHEMISTRY METHOD 06/12/2025 10:02 PM [facility] eGFR 95 >=60 mL/min/1. 73m2 LAB CHEMISTRY METHOD 06/12/2025 10:02 PM [facility] Comment:Calculation based on the Chronic Kidney Disease Epidemiology Collaboration (CKD-EPI) equation refit without adjustment for race. BUN/Creatinine Ratio 17.9 LAB CHEMISTRY METHOD 06/12/2025 10:02 PM [facility] Calcium 9.0 8.5 - 10.5 mg/dL LAB CHEMISTRY METHOD 06/12/2025 10:02 PM [facility] AST (SGOT) 20 10 - 42 unit/L LAB CHEMISTRY METHOD 06/12/2025 10:02 PM [facility] ALT (SGPT) 33 10 - 60 unit/L LAB CHEMISTRY METHOD 06/12/2025 10:02 PM EDT [facility] Alkaline Phosphatase 98 42 - 121 unit/L LAB CHEMISTRY METHOD 06/12/2025 10:02 PM EDT [facility] Total Protein 6.6 6.0 - 8.0 g/dL LAB CHEMISTRY METHOD 06/12/2025 10:02 PM EDT [facility] Albumin 3.4 3.2 - 5.0 g/dL LAB CHEMISTRY METHOD 06/12/2025 10:02 PM EDT [facility] Total Bilirubin 0.2 0.0 - 1.4 mg/dL LAB CHEMISTRY METHOD 06/12/2025 10:02 PM EDT [facility] Blood Venous blood specimen / Unknown Venipuncture / Unknown 06/12/2025 9:30 PM EDT 06/12/2025 9:33 PM EDT Enzo MARSHALL LAB BLOOD ORDERABLES Final Result [facility] [address] [place] [address], * ECG 12 lead (06/12/2025 9:26 PM EDT) Ventricular Rate ECG 101 BPM GEMUSE Atrial Rate 101 BPM GEMUSE P-R Interval 152 ms GEMUSE QRS Duration 82 ms GEMUSE Q-T Interval 370 ms GEMUSE QTc 479 ms GEMUSE P Wave [place] 51 degrees GEMUSE R [place] -22 degrees GEMUSE T [place] 40 degrees GEMUSE ECG Interpretation Sinus tachycardia When compared with ECG of 05-NOV-2024 10:41, No significant change was found Confirmed by LOIS PEREZ ([id number]) on 06/13/2025 12:10:23 AM GEMUSE 06/12/2025 9:26 PM EDT 06/13/2025 12:10 AM EDT Enzo MARSHALL ECG ORDERABLES Final Resul t GEMUSE * XR Chest 1 View (06/12/2025 9:23 PM EDT) Anatomical Region Laterality Modality Body Radiographic Kandice ging 06/13/2025 2:07 AM EDT Impressions 06/13/2025 2:08 AM EDT FINDINGS/IMPRESSION: Bibasilar atelectasis/scarring, similar compared to prior. No pleural effusion or pneumothorax. Cardiac silhouette is normal in size. Degenerative changes seen throughout the bones. Cholecystectomy clips. -------- FINAL REPORT -------- Dictated By: APOLINAR SHEA Dictated Date: 06/13/2025 02:07 ET Assigned Physician: APOLINAR SHEA Reviewed and Electronically Signed By: APOLINAR SHEA Signed Date: 06/13/2025 02:08 ET Workstation ID: [id number] Transcribed By: Self Edit Transcribed Date: 06/13/2025 02:07 ET Narrative 06/13/2025 2:08 AM EDT XR CHEST 1 VIEW INDICATION: Pain TECHNIQUE: XR CHEST 1 VIEW COMPARISON: 11/04/2024 Procedure Note Apolinar Shea MD - 06/13/2025 XR CHEST 1 VIEW INDICATION: Pain TECHNIQUE: XR CHEST 1 VIEW COMPARISON: 11/04/2024 IMPRESSION: FINDINGS/IMPRESSION: Bibasilar atelectasis/scarring, similar compared toprior. No pleural effusion or pneumothorax. Cardiac silhouette is normalin size. Degenerative changes seen throughout the bones. Cholecystectomyclips. -------- FINAL REPORT -------- Dictated By: APOLINAR SHEA Dictated Date: 06/13/2025 02:07 ET Assigned Physician: APOLINAR SHEA Reviewed and Electronically Signed By: APOLINAR SHEA Signed Date: 06/13/2025 02:08 ET Workstation ID: [id number] Transcribed By: Self Edit Transcribed Date: 06/13/2025 02:07 ET us Hakeem Nava MD IMG XR PROCEDURES Final Res ult * [id number], RSV, Influenza A and B qualitative RT-PCR (06/12/2025 7:54 PM EDT) Influenza A PCR Not Detected Not Detected LAB MICROBIOLOGY METHOD 06/12/2025 8:59 PM EDT [facility] Influenza B PCR Not Detected Not Detected LAB MICROBIOLOGY METHOD 06/12/2025 8:59 PM EDT [facility] RSV PCR Not Detected Not Detected LAB MICROBIOLOGY METHOD 06/12/2025 8:59 PM EDT [facility] SARS COV-2 Not Detected Not Detected LAB MICROBIOLOGY METHOD 06/12/2025 8:59 PM EDT [facility] Swab Nasopharyngeal structure / Unknown Non-blood Collection / Unknown 06/12/2025 7:54 PM EDT 06/12/2025 8:10 PM EDT Narrative [facility] - 06/12/2025 8:59 PM EDT Disclaimer: Testing was performed using the Anametrix GeneXpert Xpress SARS-CoV-2 _Flu_RSV PLUS PCR assay. The manner in which this information is used to guide patient care is the responsibility of the healthcare provider. Results should be correlated with the clinical history, epidemiological data, and other data available to the clinician evaluating the patient. Negative results do not preclude infection. This test has been authorized by the FDA under an Emergency Use Authorization (EUA). This test is only authorized for the duration of time the declaration that circumstances exist justifying the authorization of the emergency use of in vitro diagnostic tests for detection of SARS-CoV-2 virus and/or diagnosis of COVID-19 infection under section 564 (b) (1) of the Act, 21 U.S.C 360bbb-3 (b) (1), unless the authorization is terminated or revoked sooner. Reference Range: Not Detected Fact sheet for Healthcare providers can be found at https://www.fda.gov/media/244063/download. Fact sheet for Healthcare patients can be found at https://www.fda.gov/media/395869/download. Enzo MARSHALL LAB MICROBIOLOGY - GENERAL ORDERABLES Final Result [facility] [address] [place] [address], [place] [phone] * Troponin I high sensitivity (06/12/2025 7:54 PM EDT) [facility] High Sensitivity Troponin I <3 <=54 ng/L LAB CHEMISTRY METHOD 06/12/2025 8:41 PM EDT [facility] Blood Venous blood specimen / Unknown Venipuncture / Unknown 06/12/2025 7:54 PM EDT 06/12/2025 8:12 PM EDT Narrative [facility] - 06/12/2025 8:41 PM EDT High levels of biotin in samples may falsely decrease hsTroponin values. Use caution when interpreting hsTroponin results in patients taking biotin who exhibit renal impairment (eGFR <60) or in patients taking more than 20 mg/day of biotin. Enzo MARSHALL LAB BLOOD ORDERABLES Final Result Performing Organization Address City/[facility]/ZIP Co de Phone Number [facility] [address] [place] [address], [place] [phone] * Procalcitonin (06/12/2025 7:54 PM EDT) [facility] Procalcitonin <0.02 <=0.16 ng/mL LAB CHEMISTRY METHOD 06/15/2025 12:28 PM EDT [facility] Blood Venous blood specimen / Unknown Venipuncture / Unknown 06/12/2025 7:54 PM EDT 06/12/2025 8:12 PM EDT Narrative [facility] - 06/15/2025 12:28 PM EDT Procalcitonin > 2.00 ng/ml: Procalcitonin Levels above 2.00 ng/ml, on the first day of ICU admission represent a high risk for progression to severe sepsis and/or septic shock. Procalcitonin < 0.50 ng/ml: Procalcitonin levels below 0.50 ng/ml on the first day of ICU admission represent a low risk for progression to severe sepsis and/or septic shock. Concentrations <0.5 ng/mL do not exclude an infection, on account of local ized infections (without systemic signs) which can be associated with such low concentrations, or a systemic infection in its initial stages (<6 hours). Furthermore, increased procalcitonin can occur without infection. PCT concentrations between 0.5 and 2.0 ng/mL should be interpreted taking into account the patient's history. It is recommended to retest PCT within 6-24 hours if any concentrations <2.0 ng/mL are obtained. Enzo MARSHALL LAB BLOOD ORDERABLES Final Result Performing Organization Address [facility] Co de Phone Number [facility] [address] [place] [address], [place] [phone] * Light blue tube (06/12/2025 7:54 PM EDT) Extra Tube Hold for add-ons. 06/12/2025 10:02 PM EDT [facility] Comment:Auto resulted. Blood Venous blood specimen / Unknown 06/12/2025 7:54 PM EDT 06/12/2025 8:11 PM EDT Enzo Byrnes [place] LAB BLOOD ORDERABLES Final Result Performing Organization Address [facility]/ZIP Co de Phone Number [facility] [address] [place] [address], [place] [phone] * B-type natriuretic peptide (06/12/2025 7:54 PM EDT) BNP 2 <=100 pcg/mL LAB CHEMISTRY METHOD 06/12/2025 8:51 PM EDT [facility] Blood Venous blood specimen / Unknown Venipuncture / Unknown 06/12/2025 7:54 PM EDT 06/12/2025 8:10 PM EDT us Enzo MARSHALL LAB BLOOD ORDERABLES Final Result [facility] [address] [place] [address], [place] [phone] * (ABNORMAL) Lipid panel with reflex to direct LDL (01/15/2025 11:31 AM EDT) Cholesterol 173 0 - 200 mg/dL LAB CHEMISTRY METHOD 01/15/2025 3:56 PM EDT [facility] Triglycerides 121 0 - 150 mg/dL LAB CHEMISTRY METHOD 01/15/2025 3:56 PM EDT [facility] HDL 48 >=40 mg/dL LAB CHEMISTRY METHOD 01/15/2025 3:56 PM EDT [facility] LDL Calculated 101(H) 0 - 100 mg/dL LAB CHEMISTRY METHOD 01/15/2025 3:56 PM EDT [facility] VLDL Cholesterol Tino 24.2 mg/dL LAB CHEMISTRY METHOD 01/15/2025 3:56 PM EDT [facility] Non HDL Chol. (LDL+VLDL) 125 <145 mg/dL LAB CHEMISTRY METHOD 01/15/2025 3:56 PM EDT [facility] Chol/HDL Ratio 3.6 0.0 - 4.4 LAB CHEMISTRY METHOD 01/15/2025 3:56 PM EDT [facility] Blood Venous blood specimen / Unknown Venipuncture / Unknown 01/15/2025 11:31 AM EDT 01/15/2025 1:45 PM EDT us Charo Chakraborty MD LAB BLOOD ORDERABLES Final Res ult [facility] [address] [place] [address], [place] [phone] * Microalbumin creatinine urine ratio (01/15/2025 11:31 AM EDT) Creatinine, Urine 87.0 mg/dL LAB CHEMISTRY METHOD 01/15/2025 4:55 PM EDT [facility] Microalb, Ur 6.4 0.0 - 29.0 mg/L LAB CHEMISTRY METHOD 01/15/2025 4:55 PM EDT [facility] Microalb/Creat Ratio 7 <30 mg/g creat LAB CHEMISTRY METHOD 01/15/2025 4:55 PM EDT [facility] Urine Urine specimen obtained by clean catch procedure / Unknown Non-blood Collection / Unknown 01/15/2025 11:31 AM EDT 01/15/2025 4:46 PM EDT us Charo Chakraborty MD LAB URINE ORDERABLES Final Res ult [facility] [address] [place] [address], [place] [phone] * MG Mammo Digital Screening w Curt [...] Signed Date: 10/22/2024 13:08 ET Workstation ID: [id number] Transcribed By: Self Edit Transcribed Date: 10/22/2024 [...] None Computer-aided detection was employed with the [employer] AI 3-D. TISSUE DENSITY: There are scattered [...] None Computer-aided detection was employed with the [employer] profound AI 3-D. TISSUE DENSITY: There are [...] Signed Date: 10/22/2024 13:08 ET Workstation ID: [id number] Transcribed By: Self Edit Transcribed Date: 10/22/2024 13:02 ET us Self Referral Sppl IMG BI PROCEDURES Final Resul t * LETTY DEXA AXIAL SKELETON (05/29/2023 7:59 AM EDT) Anatomical Region Laterality Modality Mammography 05/28/2023 12:5 1 PM EDT Narrative 05/29/2023 7:59 AM EDT [facility] Diagnostic Imaging Department [address] [place] [address] Patient: ROLANDO TELLO./Age/Sex: 1955 - 67 - F Unit#: [id number] Location/Status: [facility]em[facility] Ordering Physician: YINKA STONE CNM [facility] Dexa Axial Skeleton - 05/28/231320 Report Status:Signed HISTORY: The patient is a [...] probability of hip fracture of 0.8%. Code 17009 Dictating Physician: WALDEMAR HARTMANN MD Electronically Signed by: WALDEMAR HARTMANN MD Dic Date/Time: 05/29/238 Sign date/Time: 05/29/23 0759 Procedure Note Waldemar Hartmann MD - 11/05/2023 [facility] Diagnostic Imaging Department [address] [address] Patient: ROLANDO TELLO D.O.B./Age/Sex: 1955 - 67 - F Unit#: [id number] [facility] Ordering Physician: YINKA STONE CNM Letty Dexa [...] density of the femurs bilaterally is 1.141 gm/ex1erdpz is 113% of that of young normals [...] probability of hip fracture of 0.8%. Code 00834 Dictating Physician: WALDEMAR HARTMANN MD Electronically Signed by: WALDEMAR HARTMANN MD Dic Date/Time: 05/29/23 0758 Sign date/Time: 05/29/23 0759 Yinka Stone [facility] BI PROCEDURES Final Resul t from Last 3 Months or Most Recently Relevant to Health Maintenance Additional Health Concerns Infection Onset Date Last Indicated Enterovirus 06/13/2025 06/13/2025 Rhinovirus 06/13/2025 06/13/2025 Insurance [facility] MEDICARE Member Subscriber Plan / Payer (Ef fective 2023-Present) Name:Stephanie Tello Relation to Subscriber:Self Name:Rolando Tello Payer ID:[id number] Group ID:[id number] Type:Not on file Address: [place] [address] [address] [phone] Advance Directives Documents on File Type Date Recorded Patient Dental Assistant Instructor Expl anation Health Care Decision (hx) 07/27/2018 [...] GAVIRIA DIRECTIVE Health Care Decision (hx) 07/27/2018 Rolando Hanley DVANCE DIRECTIVE Health Care Decision (hx) 07/27/2018 AD GAVIRIA DIRECTIVE Health Care Decision (hx) 07/27/2018 AD GAVIRIA DIRECTIVE Health Care Decision (hx) 07/27/2018 AD GAVIRIA DIRECTIVE Health Care Decision (hx) 07/27/2018 AD GAVIRIA DIRECTIVE Health Care Decision (hx) 07/27/2018 AD GAVIRIA DIRECTIVE * Full Code - Confirmed (Latest Code Status on File) Date Activated Date Inactivated Comments 06/13/2025 4:08 AM 06/14/2025 3:[address] atus was ascertained in the following way: Code status discussion: discussion with patient To update the patient's code status, place a code status order. Do not modify or discontinue any currently active code status orders. * Full Code - Default Date Activated Date Inactivated Comments 06/13/2025 1:48 AM 06/13/2025 4:08 AM This is orde r is used when code status has not been discussed with the patient, or code status is otherwise unknown/unconfirmed To update the patient's code status, place a code status order. Do not modify or discontinue any currently active code status orders. Healthcare Agents on File Name Relationship Healthcare Agent Relationshi p Communication Rolando Deangelo Second Alternate Health Car e Agent Care Teams Grinder Machine Setter Relationship Specialty Start Date End Date Charo Chakraborty MD [address] [phone] PCP - General Internal Medicine 09/25/24
--- OUTSIDE RECORDS SUMMARY | 2025-07-05 15:17 | XMS_ITS | Encounter Summary ---
Author Organization [facility] Address [address] [place] [address] Care Team Providers Care Counterintelligence/Humint Specialist Name Role Phone Charo Chakraborty MD Primary Care Provider +1- [phone] Reason for Visit * Reason Onset Date Comments medication problems 02/10/2024 Encounter Details Date Type Department Care Team Description 02/10/2024 Telephone Internal Medicine - [address], [address] [place] [address] Charo Chakraborty MD [address] [place] [id number] medication problems Social History Tobacco Use Types Packs/Day Years [...] encounter Miscellaneous Notes * Telephone Encounter - Charo Chakraborty MD - 02/10/2024 12:40 PM EDT Resent the prescription for 300 mg 4 tablets a day to [facility] * Telephone Encounter - Yanet Liu M.A. - 02/10/2024 11:59 AM EDT Please read message below. * Telephone Encounter - Jennyfer Tran - 02/10/2024 11:[address] Chakraborty ordered for patient gabapentin 300mg However patient already has an order placed On 01-13-2024 For Gabapentin 600 mg and 300 mg Tablet from a pharmacy [facility] [place], [place] Ordered by two separate providers- Dr. Tanvi Feldman 600mg from [place], [place] Dr. Benoit Rubio. 300mg Pleaes contact [facility] RE: patient other providers are ordering this medication-Will not dispense - placed on hold until they hear from our office.Contact [phone] documented in this encounter Plan of Treatment [...] with neurological manifestations, not stated as uncontrolled TONY (obstructive sleep apnea) Obstructive sleep apnea (adult) (pediatric) documented in this encounter Care Teams Counterintelligence/Humint Specialist Relationship Specialty Start Date End Date Charo Chakraborty MD PCP - General Internal Medicine 02/14/18 documented as of this encounter
--- OUTSIDE RECORDS SUMMARY | 2025-07-05 15:17 | XMS_ITS | Encounter Summary ---
Author Organization [facility] Address [address] [place] [address] Care Team Providers Care Director Of Managed Services Name Role Phone Charo Chakraborty MD Primary Care Provider [phone]- [phone] Reason for Visit * Reason Comments E-prescribe Rx Request Encounter Details Date Type Department Care Team Description 07/01/2019 Refill Internal Medicine - [address], [address] [place] [address] Charo Chakraborty MD [address] [place] [phone] E-prescribe Rx Request Social History Tobacco [...] encounter Miscellaneous Notes * Telephone Encounter - Jennifer Uribe - 07/01/2019 2:03 PM EDT Patient would like script to be: E-PRESCRIBED/FAXED TO PHARMACY WHEN WAS THE PATIENT'S LAST APPOINTMENT IN ADULT MEDICINE? 06/24/19 WHEN WAS THE LAST TIME THE PATIENT SAW THEIR PCP? Same as above Does patient have an upcoming appointment? Yes 09/29/19 (THE MEDICATION REQUESTED IS ON THE MED [...] N/A Patients current insurance carrier is: Payor: [employer] FFS / Plan: [employer] [facility] / Product Type: MEDICAID RISK documented in this encounter Plan of Treatment Not on file documented as of this encounter Visit Diagnoses Not on filedocumented in this encounter Care Teams Director Of Managed Services Relationship Specialty Start Date End Date Charo Chakraborty MD PCP - General Internal Medicine 02/14/18 documented as of this encounter
--- OUTSIDE RECORDS SUMMARY | 2025-07-05 15:17 | XMS_ITS | Encounter Summary ---
Author Organization [email or web address] [facility] Address [address] [place] [address] Care Team Providers Care Solar Maintenance Technician Name Role Phone Charo Chakraborty MD Primary Care Provider [phone] [phone] Encounter Details Date Type Department Care Team Description 04/23/2019 Release of Information Medical Records [address] [place] [address] Abstract, Provider Social History Tobacco Use Types [...] on filedocumented in this encounter Care Teams Solar Maintenance Technician Relationship Specialty Start Date End Date Charo Chakraborty MD PCP - General Internal Medicine 02/14/18 documented as of this encounter
--- OUTSIDE RECORDS SUMMARY | 2025-07-05 15:17 | XMS_ITS | Encounter Summary ---
Author Organization [facility] Address [address] [place] [address] Care Team Providers Care Rougher Merchant Mill Name Role Phone Charo Chakraborty MD Primary Care Provider [phone]- [phone] Encounter Details Date Type Department Care Team Description 12/16/2019 Refill Adult Med - [place] [address] [place], [place] [id number] Charo Chakraborty MD [address] [place] [address] Social History Tobacco Use Types Packs/Day [...] Telephone Encounter - Ne Jones M.A. - 12/16/2019 4:20 PM EDT Refill sent to pcp * Telephone Encounter - Nancy Blackwood - 12/16/2019 4:05 PM EDT Patient would like script to be: E-PRESCRIBED/FAXED TO PHARMACY WHEN WAS THE PATIENT'S LAST APPOINTMENT IN ADULT MEDICINE? 12/09/2019 WHEN WAS THE LAST TIME THE PATIENT SAW THEIR PCP? Same as above Does patient have an upcoming appointment? Yes 03/02/2020 (THE MEDICATION REQUESTED IS ON THE MED [...] N/A Patients current insurance carrier is: Payor: [email or web address] FFS / Plan: [employer] [place] / Product Type: MEDICAID RISK documented in this encounter Plan of Treatment Not on file documented as of this encounter Visit Diagnoses Not on filedocumented in this encounter Care Teams Rougher Merchant Mill Relationship Specialty Start Date End Date Charo Chakraborty MD PCP - General Internal Medicine 02/14/18 documented as of this encounter
--- OUTSIDE RECORDS SUMMARY | 2025-07-05 15:17 | XMS_ITS | Encounter Summary ---
Author Organization [facility] [facility] Address [address] [place] [address] Care Team Providers Care Consulting It Architect Name Role Phone Charo Chakraborty MD Primary Care Provider [phone]- [phone] Reason for Visit * Reason Comments E-prescribe Rx Request Encounter Details Date Type Department Care Team Description 06/14/2021 Refill Internal Medicine - [address], [address] [place] [address] Charo Chakraborty MD [address] [place] [phone] E-prescribe Rx Request Social History Tobacco [...] on filedocumented in this encounter Care Teams Consulting It Architect Relationship Specialty Start Date End Date Charo Chakraborty MD PCP - General Internal Medicine 02/14/18 documented as of this encounter
--- OUTSIDE RECORDS SUMMARY | 2025-07-05 15:17 | XMS_ITS | Encounter Summary ---
Author Organization [facility] Address [address] [place] [address] Care Team Providers Care Supervisor Ovens Name Role Phone Charo Chakraborty MD Primary Care Provider [phone]- [phone] Reason for Visit * Reason Onset Date Comments refill request 01/07/2020 Encounter Details Date Type Department Care Team Description 01/07/2020 Refill Internal Medicine - [address], [address] [place] [address] Charo Chakraborty MD [address] [place] [phone] refill request Social History Tobacco Use [...] encounter Miscellaneous Notes * Telephone Encounter - Angie Wood - 01/07/2020 2:55 PM EDT Patient would like script to be: E-PRESCRIBED/FAXED TO PHARMACY WHEN WAS THE PATIENT'S LAST APPOINTMENT WITH THE PRESCRIBING PROVIDER? N/A Does patient have an upcoming appointment? Yes 03/02/20 (THE MEDICATION REQUESTED IS ON THE MED LIST ABOVE) All of the medications requested were on the CURRENT MEDS list Did you check the Pharmacy information above?: YES Patient wants: prescribed qty: 40 Is this a mail order prescription request ? NO Patients current insurance carrier is: Payor: [employer] FFS / Plan: [employer] / Product Type: MEDICAID RISK documented [...] reflux documented in this encounter Care Teams Supervisor Ovens Relationship Specialty Start Date End Date Charo Chakraborty MD PCP - General Internal Medicine 02/14/18 documented as of this encounter
--- OUTSIDE RECORDS SUMMARY | 2025-07-05 15:17 | XMS_ITS | Encounter Summary ---
Author Organization [facility] Address [address] [place] [address] Care Team Providers Care Hoister Name Role Phone Charo Chakraborty MD Primary Care Provider +1 [phone] Encounter Details Date Type Department Care Team Description 05/20/2019 Transfer Records Medical Records [address] [place], [place] [address] [place] [address] Social History Tobacco Use Types Packs/Day Years [...] on filedocumented in this encounter Care Teams Hoister Relationship Specialty Start Date End Date Charo Chakraborty MD PCP - General Internal Medicine 02/14/18 documented as of this encounter
--- OUTSIDE RECORDS SUMMARY | 2025-07-05 15:17 | XMS_ITS | Encounter Summary ---
Author Organization [facility] Address [address] [place] [address] Care Team Providers Care 4Th Grade Math Teacher Name Role Phone Charo Chakraborty MD Primary Care Provider +1- [phone] Encounter Details Date Type Department Care Team Description 03/03/2019 Orders Only Medical Records [address] [place] [address] Newton Jessica MD [address] [facility] [address] [place] [address] Social History Tobacco Use Types Packs/Day Years [...] Name Priority Date/Time Associated Diagnosis Comments OUTSIDE MRI/MRA Routine 03/03/2019 documented in this encounter Results * OUTSIDE MRI/MRA (03/03/2019) Newton Jessica MD RADIOLOGY documented in this encounter Visit Diagnoses Not on filedocumented in this encounter Care Teams 4Th Grade Math Teacher Relationship Specialty Start Date End Date Charo Chakraborty MD PCP - General Internal Medicine 02/14/18 documented as of this encounter
--- OUTSIDE RECORDS SUMMARY | 2025-07-05 15:17 | XMS_ITS | Encounter Summary ---
Author Organization [facility] Address [address] [place] [address] Care Team Providers Care Horseback Riding Instructor Name Role Phone Charo Chakraborty MD Primary Care Provider [phone]- [phone] Reason for Visit * Reason Onset Date Comments Shortness Of Breath 09/03/2019 Encounter Details Date Type Department Care Team Description 09/03/2019 Telephone Pulmonology - [place] [address] [facility] [address] [place] [address] Brando Humphrey MD [address] [facility] [address] [place] [address] Shortness Of Breath Social History Tobacco Use Types Packs/Day Years [...] Telephone Encounter - Charo Chakraborty MD - 09/04/2019 7:01 AM EST She needs to be seen at urgent care or in our office * Telephone Encounter - Babrara Lazo M.A. - 09/03/2019 4:10 PM EST Spoke with Jazlyn patient daughter (VR). She is not with her mother at this time and would like to have her mother seen for the congestion and coughing. I have suggested that she could take her mother to urgent care if needed to have some one listen to her lungs and be evaluated. Patient has not been seen by any one in Pulmonology (Dr. Costa) 01/2019. Dr. Chakraborty please review and advise. * Telephone Encounter - Jennyfer Tran - 09/03/2019 10:46 AM EST Symptoms patient is having: dyspnea/mild exertion-cough productive- If pain or injury related was it due to an accident at work or from a motor vehicle accident? NO If yes, gather 3rd alliance party insurance information Date of accident/Injury: n/a How long has patient had these symptoms?: 5 days without relief-despite taking nebulizer treatment PCP: Charo Chakraborty Payor: [employer] FFS / Plan: [employer] / Product Type: MEDICAID RISK documented in this encounter Plan of Treatment Not on file documented as of this encounter Visit Diagnoses Not on filedocumented in this encounter Care Teams Horseback Riding Instructor Relationship Specialty Start Date End Date Charo Chakraborty MD PCP - General Internal Medicine 02/14/18 documented as of this encounter
--- OUTSIDE RECORDS SUMMARY | 2025-07-05 15:17 | XMS_ITS | Encounter Summary ---
Author Organization [facility] Address [address] [place] [address] Care Team Providers Care Mechanic Welder Name Role Phone Charo Chakraborty MD Primary Care Provider +1- [phone] Encounter Details Date Type Department Care Team Description 03/29/2021 Telephone Gastroenterology - [place] [address] [facility] [address] [place] [phone] Judah Yoon PA-C Social History Tobacco Use [...] encounter Miscellaneous Notes * Telephone Encounter - Judah Yoon PA-C - 03/29/2021 9:25 AM EDT If patient is on the schedule for tomorrow, I would like to wait to order the medication until she is seen in the office. documented in this encounter Plan of Treatment Not on file documented as of this encounter Visit Diagnoses Not on filedocumented in this encounter Care Teams Mechanic Welder Relationship Specialty Start Date End Date Charo Chakraborty MD PCP - General Internal Medicine 02/14/18 documented as of this encounter
--- OUTSIDE RECORDS SUMMARY | 2025-07-05 15:17 | XMS_ITS | Patient Health Record ---
Author Organization [facility] Address [address] [place] [address] Care Team Providers Care Environmental Marketing Representative Name Role Phone JAXON AGUERO Unavailable [phone] Reason For Referral No Information Plan Of Treatment No Information Insurance Providers Payer Name Payer Address Payer Phone Subscriber Number Group Number Insured Name Patient Relationship to Insured Coverage Start Date Coverage End Date [employer] One [employer]Donna or Options [address] [place] [id number] Jazlyn Vargas Self - patient is the insured 3
--- OUTSIDE RECORDS SUMMARY | 2025-07-05 15:17 | XMS_ITS | Encounter Summary ---
Author Organization [facility] Address [address] [place] [address] Care Team Providers Care Spark Plug Assembler Name Role Phone Charo Chakraborty MD Primary Care Provider +1- [phone] Reason for Visit * Reason Onset Date Comments Prior Authorization 07/20/2021 Encounter Details Date Type Department Care Team Description 07/20/2021 Telephone Internal Medicine - [address], [address] [place] [address] Charo Chakraborty MD [address] [place] [address] Prior Authorization Social History Tobacco Use [...] have Coronavirus / COVID-19? No / Unsure 07/12/2021 1:02 PM EDT documented as of this encounter Miscellaneous Notes * Telephone Encounter - Bernadette Hanson M.A. - 07/24/2021 8:47 AM EDT Approval for Cyclobenzaprine Hcl 5mg tablets. Approved from 07/21/2021-07/21/2022. Case # [id number]. [facility] notified by fax. * Telephone Encounter - Bernadette Hanson M.A. - 07/21/2021 4:00 PM EDT Fax from [facility] with additional questions. Wrote all of the 15 know allergies patient has and faxed back to [facility]. * Telephone Encounter - Bernadette Hanson M.A. - 07/21/2021 1:24 PM EDT Wells code would not work for prior authorization. Dx code:M62.838 muscle spasm. Prior authorization done on [facility] form for Cyclobenzaprine 5mg tablets. * Telephone Encounter - Molly De La Fuente - 07/20/2021 2:58 PM EDT Prior Authorization for Medication-do not complete and send this encounter unless you have the fax from the pharmacy. Is this a Cover My Meds request: Yes -- Wells Code [id number] Name of Medication cyclobenzaprine (FLEXERIL) 5 MG tablet Dose of Medication What is the RX # from the faxed refill? How does patient take this med? What Pharmacy did the fax come from: [facility] fax #: [phone] Third Alliance Party Information from fax: What Prescription Plan does the patient have? BIN/PCN if applicable: Cardholder ID: Person Code: Relationship Code: Help desk phone: documented in this encounter Plan of Treatment Not on file documented as of this encounter Visit Diagnoses Not on filedocumented in this encounter Care Teams Spark Plug Assembler Relationship Specialty Start Date End Date Charo Chakraborty MD PCP - General Internal Medicine 02/14/18 documented as of this encounter
--- OUTSIDE RECORDS SUMMARY | 2025-07-05 15:17 | XMS_ITS | Encounter Summary ---
Author Organization [facility] Address [address] [place] [address] Care Team Providers Care Floor Coverings Installer Name Role Phone Charo Chakraborty MD Primary Care Provider +1- [phone] Encounter Details Date Type Department Care Team Description 05/13/2024 Refill Internal Medicine [address], [address] [place] [address] Charo Chakraborty MD [address] [place] [address] Social History Tobacco Use Types Packs/Day [...] on filedocumented in this encounter Care Teams Floor Coverings Installer Relationship Specialty Start Date End Date Charo Chakraborty MD PCP - General Internal Medicine 02/14/18 documented as of this encounter
--- OUTSIDE RECORDS SUMMARY | 2025-07-05 15:17 | XMS_ITS | Encounter Summary ---
Author Organization [facility] [employer] [facility] Address [address] [place] [address] Care Team Providers Care Truck Body Builder Name Role Phone Charo Chakraborty MD Primary Care Provider +1- [phone] Reason for Visit * Reason Comments E-prescribe Rx Request Encounter Details Date Type Department Care Team Description 08/20/2019 Refill Pulmonology - [place] [address] [facility] [address] [place] [address] Hakeem Singer PA-C [address] [facility] [address] [place] [address] E-prescribe Rx Request Social History Tobacco Use [...] * Telephone Encounter - Jennifer Uribe - 08/20/2019 11:41 AM EST Patient would like script to be: E-PRESCRIBED/FAXED TO PHARMACY When was the patients last office visit in Adult Medicine?: 05/07/19 with kirstin When was the last time the patient saw their PCP? Unknown Does patient have an upcoming appointment? Yes 09/14/19 with kirstin (THE MEDICATION IS NOT ON THE MED LIST AND IS IDENTIFIED BELOW): {MED LIST:58308) Med name: benzonatate (TESSALON) 200 MG capsule Dosage: 200mg # of tablets: N/a Local pharmacy with request for 30 -day supply Instructions: TAKE 1 CAPSULE BY MOUTH THREE TIMES DAILY NEEDED FOR COUGH Did you check the pharmacy information above?: YES Patients current insurance carrier: Payor: [employer] FFS / Plan: [employer] / Product Type: MEDICAID RISK documented in this encounter Plan of Treatment Not on file documented as of this encounter Visit Diagnoses Diagnosis Severe asthma with acute exacerbation, unspecified whether persistent Chronic obstructive pulmonary disease, unspecified COPD type (HCC) Allergic rhinitis, unspecified seasonality, unspecified trigger TONY (obstructive sleep apnea) Obstructive sleep apnea (adult) (pediatric) Class 2 severe obesity due to excess calories with serious comorbidity and body mass index (BMI) of 37.0 to 37.9 in adult (HCC) Essential hypertension Unspecified essential hypertension Gastroesophageal reflux disease without esophagitis Esophageal reflux documented in this encounter Care Teams Truck Body Builder Relationship Specialty Start Date End Date Charo Chakraborty MD PCP - General Internal Medicine 02/14/18 documented as of this encounter
--- OUTSIDE RECORDS SUMMARY | 2025-07-05 15:18 | XMS_ITS | Encounter Summary ---
Author Organization [facility] Address [address] [place] [address] Care Team Providers Care Pulmonary Care Nurse Name Role Phone Charo Chakraborty MD Primary Care Provider +1- [phone] Encounter Details Date Type Department Care Team Description 11/06/2018 Orders Only Medical Records [address] [place] [address] Abstract, Provider Social History Tobacco Use Types [...] Name Priority Date/Time Associated Diagnosis Comments OUTSIDE PLAIN FILM Routine 10/11/2018 documented in this encounter Results * OUTSIDE PLAIN FILM (10/11/2018) Provider Abstract RADIOLOGY documented in this encounter Visit Diagnoses Not on filedocumented in this encounter Care Teams Pulmonary Care Nurse Relationship Specialty Start Date End Date Charo Chakraborty MD PCP - General Internal Medicine 02/14/18 documented as of this encounter
--- OUTSIDE RECORDS SUMMARY | 2025-07-05 15:18 | XMS_ITS | Encounter Summary ---
Author Organization [facility] Address [address] [place] [address] Care Team Providers Care Used Car Make Ready Mechanic Name Role Phone Charo Chakraborty MD Primary Care Provider +1- [phone] Reason for Visit * Reason Onset Date Comments Provider Call Back 04/04/2018 Encounter Details Date Type Department Care Team Description 04/04/2018 Telephone Pulmonology [facility] 175 [facility] [address] [place] [address] Slick Diego MD Provider Call Back Social History Tobacco Use Types Packs/Day Years [...] encounter Miscellaneous Notes * Telephone Encounter - Alana Sanabria M.A. - 04/04/2018 4:38 PM EDT Called Amelia garza to call office.please find out what she needs. * Telephone Encounter - Manohar Jacob - 04/04/2018 3:34 PM EDT Amelia from [facility] is calling please call, [phone] documented in this encounter Plan of Treatment Not on file documented as of this encounter Visit Diagnoses Not on filedocumented in this encounter Care Teams Used Car Make Ready Mechanic Relationship Specialty Start Date End Date Charo Chakraborty MD PCP - General Internal Medicine 02/14/18 documented as of this encounter
--- OUTSIDE RECORDS SUMMARY | 2025-07-05 15:18 | XMS_ITS | Encounter Summary ---
Author Organization [facility] Address [address] [place] [address] Care Team Providers Care Facepiece Line Supervisor Name Role Phone Charo Chakraborty MD Primary Care Provider Encounter Details Date Type Department Care Team Description 05/22/2022 Telephone Pulmonology - [place] 175 [facility] [address] [place] [id number] Madina Carter, TONNY 175 [facility] [address] [place] [address] Social History Tobacco Use Types [...] suspected to have Coronavirus/COVID-19? No / Unsure 04/23/2022 9:21 AM EDT documented as of this encounter Plan of Treatment Not on file documented as of this encounter Visit Diagnoses Not on filedocumented in this encounter Care Teams Facepiece Line Supervisor Relationship Specialty Start Date End Date Charo Chakraborty MD PCP - General Internal Medicine 02/14/18 documented as of this encounter
--- OUTSIDE RECORDS SUMMARY | 2025-07-05 15:18 | XMS_ITS | Encounter Summary ---
Author Organization [facility] Address [address] [place] [address] Care Team Providers Care Barrel Rifler Hook Name Role Phone Charo Chakraborty MD Primary Care Provider [phone]- [phone] Reason for Visit * Reason Onset Date Comments Faxed Refill 07/13/2020 Encounter Details Date Type Department Care Team Description 07/13/2020 Refill Internal Medicine - [address], [address] [place] [address] Charo Chakraborty MD [address] [place] [phone] Faxed Refill Social History Tobacco Use [...] have Coronavirus / COVID-19? No / Unsure 07/08/2020 12:51 PM EDT documented as of this encounter Miscellaneous Notes * Telephone Encounter - Ne Jones M.A. - 07/13/2020 3:33 PM EDT Lab Results Component Value Date NA 143 03/24/2020 K 3.9 03/24/2020 CO2 29 03/24/2020 CL 105 03/24/2020 BUN 13 03/24/2020 CREAT 0.70 03/24/2020 GLU 256 07/08/2020 ALB 3.7 03/24/2020 SGOT 23 03/24/2020 SGPT 45 03/24/2020 TBILI 0.3 03/24/2020 ALKPHOS 64 03/24/2020 TP 6.9 03/24/2020 CA 9.0 03/24/2020 GFR > 60 03/24/2020 * Telephone Encounter - Jennyfer Tran - 07/13/2020 1:27 PM EDT Patient would like script to be: E-PRESCRIBED/FAXED TO PHARMACY WHEN WAS THE PATIENT'S LAST APPOINTMENT IN ADULT MEDICINE? 05-23-2020 WHEN WAS THE LAST TIME THE PATIENT SAW THEIR PCP? Same as above Does patient have an upcoming appointment? Yes 08-22-2020 (THE MEDICATION REQUESTED IS ON THE MED LIST ABOVE) Did you check the Pharmacy information above?: YES Patient wants: 90 -day supply Is this a mail order prescription request ? NO If the refill is from a FAXED refill request what is the RX # listed on the fax? N/A Patients current insurance carrier is: Payor: [employer] / Plan: [employer] / Product Type: MEDICAID RISK documented in [...] asthma with acute exacerbation, unspecified whether persistent documented in this encounter Care Teams Barrel Rifler Hook Relationship Specialty Start Date End Date Charo Chakraborty MD PCP - General Internal Medicine 02/14/18 documented as of this encounter
--- OUTSIDE RECORDS SUMMARY | 2025-07-05 15:18 | XMS_ITS | Encounter Summary ---
Author Organization [facility] Address [address] [place] [address] Care Team Providers Care Nuclear Reactor Engineer Name Role Phone Charo Chakraborty MD Primary Care Provider [phone]- [phone] Reason for Visit * Reason Onset Date Comments Faxed Refill 03/28/2020 Encounter Details Date Type Department Care Team Description 03/28/2020 Refill Internal Medicine - [address], [address] [place] [address] Charo Chakraborty MD [address] [place] [phone] Faxed Refill Social History Tobacco Use [...] Telephone Encounter - Ne Jones M.A. - 03/28/2020 2:35 PM EDT Lab Results Component Value Date NA 143 03/24/2020 K 3.9 03/24/2020 CO2 29 03/24/2020 CL 105 03/24/2020 BUN 13 03/24/2020 CREAT 0.70 03/24/2020 GLU 123 03/24/2020 ALB 3.7 03/24/2020 SGOT 23 03/24/2020 SGPT 45 03/24/2020 TBILI 0.3 03/24/2020 ALKPHOS 64 03/24/2020 TP 6.9 03/24/2020 CA 9.0 03/24/2020 GFR > 60 03/24/2020 * Telephone Encounter - Angie Wood - 03/28/2020 1:08 PM EDT Theodore: 03/24/20 Qty: 50 documented in this encounter Plan of Treatment Not on file documented as of this encounter Visit Diagnoses Not on filedocumented in this encounter Care Teams Nuclear Reactor Engineer Relationship Specialty Start Date End Date Charo Chakraborty MD PCP - General Internal Medicine 02/14/18 documented as of this encounter
--- OUTSIDE RECORDS SUMMARY | 2025-07-05 15:18 | XMS_ITS | Encounter Summary ---
Author Organization [facility] Address [address] [place] [address] Care Team Providers Care Eyeglass Cutter Name Role Phone Charo Chakraborty MD Primary Care Provider [phone]- [phone] Reason for Visit * Reason Onset Date Comments Faxed Refill 07/27/2020 Encounter Details Date Type Department Care Team Description 07/27/2020 Refill Internal Medicine - [address], [address] [place] [address] Chaor Chakraborty MD [address] [place] [phone] Faxed Refill Social History Tobacco Use [...] * Telephone Encounter - Belem Resendiz - 07/27/2020 3:04 PM EDT SAMUEL 07/08/2020 NOV 10/12/2020 30 day supply. documented in this encounter Plan of Treatment Not on file documented as of this encounter Visit Diagnoses Not on filedocumented in this encounter Care Teams Eyeglass Cutter Relationship Specialty Start Date End Date Charo Chakraborty MD PCP - General Internal Medicine 02/14/18 documented as of this encounter
--- OUTSIDE RECORDS SUMMARY | 2025-07-05 15:18 | XMS_ITS | Encounter Summary ---
Author Organization [facility] Address [address] [place] [address] Care Team Providers Care Underground Repairer Name Role Phone Charo Chakraborty MD Primary Care Provider [phone]- [phone] Reason for Visit * Reason Comments E-prescribe Rx Request Encounter Details Date Type Department Care Team Description 03/29/2018 Refill Pulmonology - [address] [place] [phone] Ivelisse Kramer NP E-prescribe Rx Request Social History Tobacco Use [...] encounter Miscellaneous Notes * Telephone Encounter - Minda Meek M.A. - 04/03/2018 2:34 PM EDT Patient has an appt woith you on 05/26/18. Please review. vf * Telephone Encounter - Janna Figueredo - 03/31/2018 8:21 AM EDT Patient would like script to be: E-PRESCRIBED/FAXED TO PHARMACY WHEN WAS THE PATIENT'S LAST APPOINTMENT WITH THE PRESCRIBING PROVIDER? 03/25/18 Does patient have an upcoming appointment? Yes (THE MEDICATION REQUESTED IS ON THE MED LIST ABOVE) All of the medications requested were on the CURRENT MEDS list Did you check the Pharmacy information above?: NO Patient wants: 90 -day supply Is this a mail order prescription request ? NO Patients current insurance carrier is: Payor: [employer]FS / Plan: [employer] [place] / Product Type: MEDICAID RISK documented in this encounter Plan of Treatment Not on file documented as of this encounter Visit Diagnoses Diagnosis Asthma with acute exacerbation, unspecified asthma severity, unspecified whether persistent documented in this encounter Care Teams Underground Repairer Relationship Specialty Start Date End Date Charo Chakraborty MD PCP - General Internal Medicine 02/14/18 documented as of this encounter
--- OUTSIDE RECORDS SUMMARY | 2025-07-05 15:18 | XMS_ITS | Encounter Summary ---
Author Organization [facility] Address [address] [place] [address] Care Team Providers Care Lens Grinding Machine Operator Name Role Phone Charo Chakraborty MD Primary Care Provider [phone]- [phone] Reason for Visit * Reason Comments E-prescribe Rx Request Encounter Details Date Type Department Care Team Description 06/16/2018 Refill Pulmonology - [place] 175 [facility] [address] [place] [address] Jean Dickey MD [address] [place] [address] E-prescribe Rx Request Social History [...] encounter Miscellaneous Notes * Telephone Encounter - Manohar Jacob - 06/17/2018 8:19 AM EDT Patient would like script to be: E-PRESCRIBED/FAXED TO PHARMACY WHEN WAS THE PATIENT'S LAST APPOINTMENT WITH THE PRESCRIBING PROVIDER? 05/26/18 Does patient have an upcoming appointment? Yes 07/03/18 (THE MEDICATION REQUESTED IS ON THE MED LIST ABOVE) All of the medications requested were on the CURRENT MEDS list Did you check the Pharmacy information above?: YES Patient wants: 90 -day supply Is this a mail order prescription request ? NO Patients current insurance carrier is: Payor: [employer]FS / Plan: [employer] / Product Type: MEDICAID RISK documented in this encounter Plan of Treatment Not on file documented as of this encounter Visit Diagnoses Diagnosis Chronic obstructive pulmonary disease, unspecified COPD type (HCC) documented in this encounter Care Teams Lens Grinding Machine Operator Relationship Specialty Start Date End Date Charo Chakraborty MD PCP - General Internal Medicine 02/14/18 documented as of this encounter
--- OUTSIDE RECORDS SUMMARY | 2025-07-05 15:18 | XMS_ITS | Encounter Summary ---
Author Organization [employer] [facility] Address [address] [place] [address] Care Team Providers Care Driller'S Offsider Name Role Phone Charo Chakraborty MD Primary Care Provider [phone]- [phone] Reason for Visit * Reason Onset Date Comments Faxed Refill 04/05/2022 Encounter Details Date Type Department Care Team Description 04/05/2022 Refill Pulmonology - [place] 175 [facility] [address] [place] [phone] Madina Carter APRN 175 [facility] 200 [place] [phone] Faxed Refill Social History Tobacco Use Types [...] suspected to have Coronavirus/COVID-19? No / Unsure 03/08/2022 11:06 AM EDT documented as of this encounter Miscellaneous Notes * Telephone Encounter - Nikki Whitaker - 04/05/2022 10:20 AM EDT Patient would like script to be: E-PRESCRIBED/FAXED TO PHARMACY WHEN WAS THE PATIENT'S LAST APPOINTMENT IN ADULT MEDICINE? 01/09/22 WHEN WAS THE LAST TIME THE PATIENT SAW THEIR PCP? Same as above Does patient have an upcoming appointment? Yes 05/01/22 (THE MEDICATION REQUESTED IS ON THE MED [...] N/A Patients current insurance carrier is: Payor: [facility] / Plan: [facility] $0 [place] [id number] / Product Type: MEDICARE RISK documented in [...] complication documented in this encounter Care Teams Driller'S Offsider Relationship Specialty Start Date End Date Charo Chakraborty MD PCP - General Internal Medicine 02/14/18 documented as of this encounter
--- OUTSIDE RECORDS SUMMARY | 2025-07-05 15:18 | XMS_ITS | Encounter Summary ---
[facility] Address [address] [place] [address] Care Team Providers Care Executive Asst Name Role Phone Charo Chakraborty MD Primary Care Provider [phone]- [phone] Reason for Visit * Reason Onset Date Comments refill request 10/15/2018 Encounter Details Date Type Department Care Team Description 10/15/2018 Telephone Internal Medicine - [address], [address] [place] [address] Slick Diego MD refill request Social History Tobacco Use Types [...] encounter Miscellaneous Notes * Telephone Encounter - Radha Ramírez R.N. - 10/15/2018 9:25 AM EST error documented in this encounter Plan of Treatment Not on file documented as of this encounter Visit Diagnoses Not on filedocumented in this encounter Care Teams Executive Asst Relationship Specialty Start Date End Date Charo Chakraborty MD PCP - General Internal Medicine 02/14/18 documented as of this encounter
--- OUTSIDE RECORDS SUMMARY | 2025-07-05 15:18 | XMS_ITS | Encounter Summary ---
Author Organization [facility] Address [address] [place] [address] Care Team Providers Care Grain Farmer Name Role Phone Charo Chakraborty MD Primary Care Provider [phone]- [phone] Reason for Visit * Reason Comments E-prescribe Rx Request Encounter Details Date Type Department Care Team Description 06/04/2022 Refill Gastroenterology [address] [place] [phone] Judah Yoon PA-C E-prescribe Rx Request Social [...] encounter Miscellaneous Notes * Telephone Encounter - Constance Jiang - 06/05/2022 10:00 AM EDT SAMUEL- 05/08/21 F/u prn documented in this encounter Plan of Treatment Not on file documented as of this encounter Visit Diagnoses Not on filedocumented in this encounter Care Teams Grain Farmer Relationship Specialty Start Date End Date Charo Chakraborty MD PCP - General Internal Medicine 02/14/18 documented as of this encounter
--- OUTSIDE RECORDS SUMMARY | 2025-07-05 15:18 | XMS_ITS | Encounter Summary ---
Author Organization [employer] [facility] [facility] Address [address] [place] [address] Care Team Providers Care Special Needs Bus Driver Name Role Phone Charo Chakraborty MD Primary Care Provider [phone] Encounter Details Date Type Department Care Team Description 08/20/2018 SNF discharge summary Medical Records [address] [place] [id number] Abstract, Provider Social History Tobacco Use Types [...] on filedocumented in this encounter Care Teams Special Needs Bus Driver Relationship Specialty Start Date End Date Charo Chakraborty MD PCP - General Internal Medicine 02/14/18 documented as of this encounter
--- OUTSIDE RECORDS SUMMARY | 2025-07-05 15:18 | XMS_ITS | Encounter Summary ---
Author Organization [facility] Address [address] [place] [address] Care Team Providers Care School Secretary Name Role Phone Charo Chakraborty MD Primary Care Provider [phone]- [phone] Reason for Visit * Reason Onset Date Comments DME Request 11/21/2021 Encounter Details Date Type Department Care Team Description 11/21/2021 Telephone Pulmonology - [place] 175 [facility] [address] [place] [address] Madina Carter APRN [address] [phone] DME Request Social History Tobacco Use Types Packs/Day [...] have Coronavirus / COVID-19? No / Unsure 11/22/2021 11:38 AM EST documented as of this encounter Miscellaneous Notes * Telephone Encounter - Adina Redd - 11/21/2021 8:41 AM EST 11/21/21 fax received from [facility] for Madina rodriguez, placed in her mail tray 11/21/21 documented in this encounter Plan of Treatment Not on file documented as of this encounter Visit Diagnoses Not on filedocumented in this encounter Care Teams School Secretary Relationship Specialty Start Date End Date Charo Chakraborty MD PCP - General Internal Medicine 02/14/18 documented as of this encounter
--- OUTSIDE RECORDS SUMMARY | 2025-07-05 15:18 | XMS_ITS | Encounter Summary ---
[facility] Address [address] [place] [address] Care Team Providers Care Digital Sales Planner Name Role Phone Charo Chakraborty MD Primary Care Provider [phone]- [phone] Reason for Visit * Reason Onset Date Comments Allergic Reaction 07/11/2018 budesonide Encounter Details Date Type Department Care Team Description 07/11/2018 Telephone Pulmonology [address] [place] [address] Slick Diego MD Allergic Reaction (budesonide) Social History Tobacco Use Types Packs/Day Years [...] Telephone Encounter - Alana Sanabria M.A. - 07/11/2018 11:40 AM EDT Patient called she thinks the budesonide is making her itch.that is the only new medication she started per Dr. Diego stop the budesonide and if its not the med she can restart it once daily. documented in this encounter Plan of Treatment Not on file documented as of this encounter Visit Diagnoses Not on filedocumented in this encounter Care Teams Digital Sales Planner Relationship Specialty Start Date End Date Charo Chakraborty MD PCP - General Internal Medicine 02/14/18 documented as of this encounter
--- OUTSIDE RECORDS SUMMARY | 2025-07-05 15:18 | XMS_ITS | Encounter Summary ---
[facility] Address [address] [place] [address] Care Team Providers Care Campaign Marketing Manager Name Role Phone Charo Chakraborty MD Primary Care Provider [phone]- [phone] Reason for Visit * Reason Onset Date Comments Prior Authorization 05/05/2018 Encounter Details Date Type Department Care Team Description 05/05/2018 Telephone Pulmonology - [place] 175 [facility] [address] [place] [address] Slick Diego MD Prior Authorization Social History Tobacco Use Types [...] encounter Miscellaneous Notes * Telephone Encounter - Slick Diego MD - 05/12/2018 9:34 AM EDT Ok sent advair * Telephone Encounter - Mariajose Martinez M.A. - 05/12/2018 8:20 AM EDT Breo ellipta not covered by insurance.. Must have tried two medications on formulary and failed. The patient has used Incruse ellipta 02/14/2018-05/01/2018 Covered formulary meds: one inhaled corticosteroid alone and a inadequate response to generic fluticasone/salmeterol powder inhaler. Thank you Please reply back to p [id number] prior authorization pool Cierra Martinez C.M.A. [facility] Prior Authorizations Ext: [id number] * Telephone Encounter - Heidi Miller M.A. - 05/09/2018 3:15 PM EDT Spoke to luís from [facility] Who stated they didn't receive anything on this prior auth. Refaxed today . * Telephone Encounter - Heidi Miller M.A. - 05/08/2018 2:34 PM EDT [place] [facility] form faxed today * Telephone Encounter - Heidi Miller M.A. - 05/07/2018 9:58 AM EDT Fluticasone Furoate-Vilanterol 200-25 MCG/INH AEROSOL POWDER,BREATH ACTIVATED Sig - Route: Inhale 1 Inhaler into the lungs daily. - Inhalation Please advise. What are the correct dosing instructions ? Thank you Please reply back to [id number] Prior Auth Pool [facility] Prior Authorization Ext [id number] * Telephone Encounter - Heidi Miller M.A. - 05/06/2018 12:33 PM EDT Im confused, are the directions for use correct? Please advise. Thank you Please reply back to [id number] Prior Auth Pool [facility] Prior Authorization Ext [id number] * Telephone Encounter - Elisabeth Augustin - 05/05/2018 4:37 PM EDT Pre Authorization for Medication-do not complete and send this encounter unless you have the fax from the pharmacy. Is this a Cover My Meds request: Yes -- Wells Code [id number] Name of Medication Dose of Medication What is the RX # from the faxed refill? How does patient take this med? What Pharmacy did the fax come from: [facility] Pharmacy fax Not Listed on fax [employer] Information from fax: What Prescription Plan does the patient have? BIN/PCN if applicable: Cardholder ID: Person Code: Relationship Code: Help desk phone: documented in this encounter Plan of Treatment Not on file documented as of this encounter Visit Diagnoses Not on filedocumented in this encounter Care Teams Campaign Marketing Manager Relationship Specialty Start Date End Date Charo Chakraborty MD PCP - General Internal Medicine 02/14/18 documented as of this encounter
--- OUTSIDE RECORDS SUMMARY | 2025-07-05 15:18 | XMS_ITS | Encounter Summary ---
Author Organization [facility] Address [address] [place] [address] Care Team Providers Care Vat House Laborer Name Role Phone Charo Chakraborty MD Primary Care Provider [phone] Reason for Visit * Reason Onset Date Comments FYI: vna 06/15/2025 Encounter Details Date Type Department Care Team (Late st Contact Info) Description 06/15/2025 Telephone Internal Medicine - [place] [address] [facility] [address] [place] [phone] Charo Chakraborty MD [address] [facility] [address] [place] [address] [place] [phone] Social History Tobacco Use Types Packs/Day Years [...] file Travel History Travel Start Travel End [facility] 05/12/2025 06/12/2025 documented as of this encounter Functional Status [...] documented in this encounter Progress Notes * Sharifa Bryant - 06/15/2025 9:41 AM EDT Pierce from [facility] care givers called and stated that the patient refused vna services Cb# [phone] documented in this encounter Plan of Treatment Upcoming Encounters Date Type Department Care Team (Late st Contact Info) Description 08/09/2025 2:30 PM EST Office Visit Orthopedic Surgery - [place] [address] [phone] Aquilino Calderon DPM [address] [address] 09/16/2025 10:30 AM EST Nutrition Internal Medicine - [place] [address] [phone] Lacy Gonzalez, DAVID 175 [place] [phone] 11/04/2025 1:15 PM EST Office Visit Internal Medicine - [place] [address] [phone] Charo Chakraborty MD 175 [facility] 200 [place] [phone] 11/09/2025 9:45 AM EST Office Visit Bariatric Surgery - [place] 175 [facility] 120 [place] [phone] Maira Zurita MD [address] [place] [phone] documented as of this encounter Visit Diagnoses Not on filedocumented in this encounter Additional Health Concerns Infection Onset Date Last Indicated Resolved Time Enterovirus 06/13/2025 06/13/2025 Rhinovirus 06/13/2025 06/13/2025 documented as of this encounter Care Teams Vat House Laborer Relationship Specialty Start Date End Date Charo Chakraborty MD 175 [facility] 200 [place] [phone] PCP - General Internal Medicine 09/25/24 documented as of this encounter
--- OUTSIDE RECORDS SUMMARY | 2025-07-05 15:18 | XMS_ITS | Encounter Summary ---
Author Organization [facility] Address [address] [place] [address] Care Team Providers Care Box Worker Name Role Phone Charo Chakraborty MD Primary Care Provider [phone]- [phone] Encounter Details Date Type Department Care Team Description 03/20/2018 Orders Only Pulmonology - [place] 175 [facility] [address] [place] [phone] Slick Diego MD Social History Tobacco Use Types Packs/Day Years Used Date Smoking Tobacco: Never Alcohol Use Standard Drinks/Week Comments [...] on filedocumented in this encounter Care Teams Box Worker Relationship Specialty Start Date End Date Charo Chakraborty MD PCP - General Internal Medicine 02/14/18 documented as of this encounter
--- OUTSIDE RECORDS SUMMARY | 2025-07-05 15:18 | XMS_ITS | Encounter Summary ---
Author Organization [facility] Address [address] [place] [address] Care Team Providers Care Veneer Puller Name Role Phone Charo Chakraborty MD Primary Care Provider [phone]- [phone] Reason for Visit * Reason Onset Date Comments refill request 06/25/2022 Encounter Details Date Type Department Care Team Description 06/25/2022 Refill Internal Medicine - [address], [address] [place] [address] Charo Chakraborty MD [address] [place] [phone] refill request Social History Tobacco Use [...] Miscellaneous Notes * Telephone Encounter - Amelia Pabonpascual Campos - 06/26/2022 4:52 PM EDT No visits with results within 1 Month(s) from this visit. Latest known visit with results is: Orders Only on 03/08/2022 Component Date Value ??? GLYCATED HEMOGLOBIN A1C 03/08/2022 7.9 (A) ??? ESTIMATED AVERAGE GLUCOSE 03/08/2022 180 ??? GLUCOSE 03/08/2022 192 (A) ??? Blood Urea Nitrogen 03/08/2022 18 ??? CREAT 03/08/2022 0.68 GLOMERULAR FILTRATION RA* 03/08/2022 > 60 ??? NA 03/08/2022 142 ??? K 03/08/2022 4.3 ??? CL 03/08/2022 104 ??? CARBON DIOXIDE (CO2) 03/08/2022 31 ??? ANION GAP 03/08/2022 7 ??? CALCIUM 03/08/2022 9.2 ??? Albumin 03/08/2022 3.7 ??? TOTAL PROTEIN (TP) 03/08/2022 6.8 ??? BILIRUBIN TOTAL 03/08/2022 0.2 ??? SGOT 03/08/2022 11 ??? ALK PHOS 03/08/2022 77 ??? SGPT 03/08/2022 22 ??? WHITE BLOOD COUNT 03/08/2022 4.9 ??? RED BLOOD COUNT 03/08/2022 4.7 ??? Hemoglobin 03/08/2022 14.3 ??? Hematocrit 03/08/2022 42.8 ??? MEAN CORPUSCULAR VOLUME 03/08/2022 90.5 ??? MEAN CORPUSCULAR HEMOGLO* 03/08/2022 30.2 ??? MEAN CORPUSCULAR HGB CONC 03/08/2022 33.4 ??? RED CELL DISTRIBUTION WI* 03/08/2022 12.0 ??? PLT COUNT 03/08/2022 184 ??? MEAN PLATELET VOLUME 03/08/2022 10.9 ??? NRBC % AUTO 03/08/2022 0.0 ??? NEUTROPHILS % 03/08/2022 53.3 ??? LYMPH % 03/08/2022 34.8 ??? MONO % 03/08/2022 7.9 ??? EOS % 03/08/2022 3.0 ??? BASO % 03/08/2022 0.6 ??? IMMATURE GRANULOCYTES % 03/08/2022 0.4 ??? NRBC # AUTO 03/08/2022 0.00 ??? NEUT # 03/08/2022 2.63 ??? LYMPH # 03/08/2022 1.72 ??? MONO # 03/08/2022 0.39 ??? EOS # 03/08/2022 0.15 ??? BASO # 03/08/2022 0.03 ??? IMMATURE GRANULOCYTES # 03/08/2022 0.02 ??? Cholesterol 03/08/2022 199 ??? TRIGLYCERIDES 03/08/2022 157 (A) ??? HDL CHOLESTEROL 03/08/2022 46 ??? LDL CALCULATED 03/08/2022 122 (A) ??? TC-HDLC RATIO 03/08/2022 4.3 ??? TSH 03/08/2022 0.70 ??? VITAMIN B12 03/08/2022 880 * Telephone Encounter - Corrina Wood - 06/25/2022 2:07 PM EDT SAMUEL 04/23/2022 NOV 07/19/2022 documented in this encounter Plan of Treatment Not on file documented as of this encounter Visit Diagnoses Not on filedocumented in this encounter Care Teams Veneer Puller Relationship Specialty Start Date End Date Charo Chakraborty MD PCP - General Internal Medicine 02/14/18 documented as of this encounter
--- OUTSIDE RECORDS SUMMARY | 2025-07-05 15:18 | XMS_ITS | Encounter Summary ---
Author Organization [facility] Address [address] [place] [address] Care Team Providers Care Crop Consultant Name Role Phone Charo Chakraborty MD Primary Care Provider [phone]- [phone] Reason for Visit * Reason Comments E-prescribe Rx Request Encounter Details Date Type Department Care Team Description 05/05/2022 Refill Internal Medicine - [address], [address] [place] [address] Charo Chakraborty MD [address] [place] [phone] E-prescribe Rx Request Social History Tobacco [...] * Telephone Encounter - Amelia Campos - 05/07/2022 2:47 PM EDT BP Readings from Last 3 Encounters: 04/23/22 (!) 137/91 03/08/22 122/72 01/09/22 108/64 * Telephone Encounter - Sissy Jackman - 05/07/2022 2:04 PM EDT Theodore-04/23/2022 Nov-07/19/2022 documented in this encounter Plan of Treatment Not on file documented as of this encounter Visit Diagnoses Not on filedocumented in this encounter Care Teams Crop Consultant Relationship Specialty Start Date End Date Charo Chakraborty MD PCP - General Internal Medicine 02/14/18 documented as of this encounter
--- OUTSIDE RECORDS SUMMARY | 2025-07-05 15:18 | XMS_ITS | Encounter Summary ---
Author Organization [employer] Address [address] [place] [address] Care Team Providers Care Cinder Pit Worker Name Role Phone Charo Chakraborty MD Primary Care Provider Reason for Visit * Reason Comments E-prescribe Rx Request Encounter Details Date Type Department Care Team Description 06/04/2022 Refill Pulmonology - [place] 175 [facility] 200 [place] [phone] Madina Carter, TONNY [address] [phone] E-prescribe Rx Request Social History Tobacco Use [...] complication documented in this encounter Care Teams Cinder Pit Worker Relationship Specialty Start Date End Date Charo Chakraborty MD PCP - General Internal Medicine 02/14/18 documented as of this encounter
--- OUTSIDE RECORDS SUMMARY | 2025-07-05 15:18 | XMS_ITS | Encounter Summary ---
Author Organization [facility] Address [address] [place] [address] Care Team Providers Care Supervisor Backfilling Name Role Phone Charo Chakraborty MD Primary Care Provider [phone] Reason for Visit * Reason Onset Date Comments Lab Results 07/02/2025 Encounter Details Date Type Department Care Team (Late st Contact Info) Description 07/02/2025 Results Follow-Up Internal Medicine - [place] [address] [facility] [address] [place] [phone] Charo Chakraborty MD [address] [facility] [address] [place] [phone] Social History Tobacco Use Types Packs/Day Years [...] file Travel History Travel Start Travel End [facility] 05/12/2025 06/12/2025 documented as of this encounter [...] documented in this encounter Progress Notes * Shabbir Silva MA - 07/05/2025 9:54 AM EDT Called pt, confirmed lab results. Pt also requesting a Rx to be sent to pharmacy for daily multivitamin. ----- Message from Eloy Chakraborty MD sent at 07/04/2025 7:25 PM EDT ----- Ask her to take multivitamin ----- Message ----- From: Ana Francois MA Sent: 07/02/2025 11:40 AM EDT To: Charo Chakraborty MD Called patient and informed of labs results, and plan. Patient expressed she's feeling weak, and isasking if there's anything she can get for it. Please advice. ----- Message ----- From: Charo Chakraborty MD Sent: 07/02/2025 10:21 AM EDT [facility] better than before,continue same meds ----- Message ----- From: Lab, Background User Sent: 07/01/2025 10:22 PM EDT To: Charo Chakraborty MD documented in this encounter Plan of Treatment Upcoming Encounters Date Type Department Care Team (Late st Contact Info) Description 08/09/2025 2:30 PM EST Office Visit Orthopedic Surgery - [place] [address] [facility] 250 [place] [phone] Aquilino Calderon DPM 175 [facility] 250 [place] [address] 09/16/2025 10:30 AM EST Nutrition Internal Medicine - [place] 175 [facility] 200 [place] [phone] 175 [place] [phone] 11/04/2025 1:15 PM EST Office Visit Internal Medicine - [place] 175 [facility] 200 [place] [phone] Charo Chakraborty MD [address] [phone] 11/09/2025 9:45 AM EST Office Visit Bariatric Surgery - [place] 175 [facility] 120 [place] [phone] Maira Zurita MD [address] [place] [phone] documented as of this encounter Visit Diagnoses Not on filedocumented in this encounter Additional Health Concerns Infection Onset Date Last Indicated Resolved Time Enterovirus 06/13/2025 06/13/2025 Rhinovirus 06/13/2025 06/13/2025 Assessment Noted Time PHQ-9 Depression Total Score: 0 07/01/20 25 1:00 PM EDT documented as of this encounter Care Teams Supervisor Backfilling Relationship Specialty Start Date End Date Charo Chakraborty MD 175 [facility] 200 [place] [phone] PCP - General Internal Medicine 09/25/24 documented as of this encounter
--- OUTSIDE RECORDS SUMMARY | 2025-07-05 15:18 | XMS_ITS | Encounter Summary ---
Author Organization [facility] Address [address] [place] [address] Care Team Providers Care Design Coordinator Name Role Phone Charo Chakraborty MD Primary Care Provider [phone] Reason for Visit * Reason Onset Date Comments Faxed Refill 06/17/2020 Encounter Details Date Type Department Care Team Description 06/17/2020 Refill Internal Medicine - [address], [address] [place] [address] Charo Chakraborty MD [address] [place] [phone] Faxed Refill Social History Tobacco Use [...] have Coronavirus / COVID-19? No / Unsure 06/15/2020 1:53 PM EDT documented as of this encounter Miscellaneous Notes * Telephone Encounter - Ne Jones M.A. - 06/17/2020 4:01 PM EDT Lab Results Component Value Date HGBA1C 7.6 02/29/2020 MALBUR < 5.0 03/07/2020 MALBCR < 12.1 03/07/2020 CHOL 179 02/29/2020 LDL 105 02/29/2020 HDL 47 02/29/2020 TRIG 136 02/29/2020 GLU 123 03/24/2020 CREAT 0.70 03/24/2020 * Telephone Encounter - Eliane Up - 06/17/2020 3:57 PM EDT SAMUEL: 03/05/2020 NOV: 07/08/2020 90 day supply. documented in this encounter Plan of Treatment Not on file documented as of this encounter Visit Diagnoses Diagnosis Type II or unspecified type diabetes mellitus [...] reflux documented in this encounter Care Teams Design Coordinator Relationship Specialty Start Date End Date Charo Chakraborty MD PCP - General Internal Medicine 02/14/18 documented as of this encounter
--- OUTSIDE RECORDS SUMMARY | 2025-07-05 15:18 | XMS_ITS | Encounter Summary ---
Author Organization [facility] Address [address] [place] [address] Care Team Providers Care Precast Concrete Products Installer Name Role Phone Charo Chakraborty MD Primary Care Provider [phone] Reason for Visit * Reason Onset Date Comments Faxed Refill 07/20/2020 Encounter Details Date Type Department Care Team Description 07/20/2020 Refill Internal Medicine - [address], [address] [place] [address] Charo Chakraborty MD [address] [place] [phone] Faxed Refill Social History Tobacco Use [...] Telephone Encounter - Toshia Witt L.P.N. - 07/20/2020 1:37 PM EDT Lab Results Component Value Date HGBA1C 7.6 02/29/2020 MALBUR < 5.0 03/07/2020 MALBCR < 12.1 03/07/2020 CHOL 179 02/29/2020 LDL 105 02/29/2020 HDL 47 02/29/2020 TRIG 136 02/29/2020 GLU 256 07/08/2020 CREAT 0.70 03/24/2020 * Telephone Encounter - Belem Resendiz - 07/20/2020 11:10 AM EDT SAMUEL 07/08/2020 NOV 10/12/2020 30 day supply. documented in this encounter Plan of Treatment Not on file documented as of this encounter Visit Diagnoses Not on filedocumented in this encounter Care Teams Precast Concrete Products Installer Relationship Specialty Start Date End Date Charo Chakraborty MD PCP - General Internal Medicine 02/14/18 documented as of this encounter
--- OUTSIDE RECORDS SUMMARY | 2025-07-05 15:18 | XMS_ITS | Encounter Summary ---
Author Organization [facility] Address [address] [place] [address] Care Team Providers Care Insurance Job Titles Name Role Phone Charo Chakraborty MD Primary Care Provider [phone] Reason for Visit * Reason Onset Date Comments Forms/questionnaires 07/02/2025 L&C Encounter Details Date Type Department Care Team (Late st Contact Info) Description 07/02/2025 Telephone Internal Medicine - [place] [address] [facility] [address] [place] [phone] Samara Wood MA Social History Tobacco Use Types Packs/Day [...] file Travel History Travel Start Travel End [facility] 05/12/2025 06/12/2025 documented as of this [...] documented in this encounter Progress Notes * Samara Wood MA - 07/02/2025 10:14 AM EDT [facility] Confirmation of order, [id number] Placed in providers folder for signature. documented in this encounter Plan of Treatment Upcoming Encounters Date Type Department Care Team (Late st Contact Info) Description 08/09/2025 2:30 PM EST Office Visit Orthopedic Surgery - [place] [address] [phone] Aquilino Calderon DPM [address] [address] 09/16/2025 10:30 AM EST Nutrition Internal Medicine - [place] [address] [phone] 175 [place] [phone] 11/04/2025 1:15 PM EST Office Visit Internal Medicine - [place] [address] [phone] Charo Chakraborty MD [address] [phone] 11/09/2025 9:45 AM EST Office Visit Bariatric Surgery - [place] [address] [place] [phone] Maira Zurita MD [address] [place] [phone] documented as of this encounter Visit Diagnoses Not on filedocumented in this encounter Additional Health Concerns Infection Onset Date Last Indicated Resolved Time Enterovirus 06/13/2025 06/13/2025 Rhinovirus 06/13/2025 06/13/2025 Assessment Noted Time PHQ-9 Depression Total Score: 0 07/01/20 25 1:00 PM EDT documented as of this encounter Care Teams Insurance Job Titles Relationship Specialty Start Date End Date Charo Chakraborty MD 175 [facility] 200 [place] [phone] PCP - General Internal Medicine 09/25/24 documented as of this encounter
--- OUTSIDE RECORDS SUMMARY | 2025-07-05 15:18 | XMS_ITS | Encounter Summary ---
Author Organization [facility] Address [address] [place] [address] Care Team Providers Care Tractor Drill Operator Name Role Phone Charo Chakraborty MD Primary Care Provider Encounter Details Date Type Department Care Team Description 05/01/2018 Orders Only Pulmonology - [place] 175 [facility] [address] [place] [address] Jean Dickey MD 175 [place] [phone] Chronic obstructive pulmonary disease, unspecified COPD type (HCC) (Primary Dx); Asthma with acute exacerbation, unspecified asthma severity, unspecified whether persistent Social History Tobacco Use Types Packs/Day Years [...] Chronic obstructive pulmonary disease, unspecified COPD type (HCC)- Primary Asthma with acute exacerbation, unspecified asthma severity, unspecified whether persistent documented in this encounter Care Teams Tractor Drill Operator Relationship Specialty Start Date End Date Charo Chakraborty MD PCP - General Internal Medicine 02/14/18 documented as of this encounter
--- OUTSIDE RECORDS SUMMARY | 2025-07-05 15:18 | XMS_ITS | Encounter Summary ---
Author [facility] Address [address] [place] [address] Care Team Providers Care Water Resource Project Manager Name Role Phone Charo Chakraborty MD Primary Care Provider [phone] Reason for Visit * Reason Onset Date Comments Faxed Refill 02/15/2020 Encounter Details Date Type Department Care Team Description 02/15/2020 Refill Internal Medicine - [address], [address] [place] [address] Charo Chakraborty MD [address] [place] [phone] Faxed Refill Social History Tobacco Use [...] * Telephone Encounter - Angie Wood - 02/15/2020 11:46 AM EDT Patient would like script to be: E-PRESCRIBED/FAXED TO PHARMACY WHEN WAS THE PATIENT'S LAST APPOINTMENT IN ADULT MEDICINE? 12/30/19 WHEN WAS THE LAST TIME THE PATIENT SAW THEIR PCP? Same as above Does patient have an upcoming appointment? Yes 03/02/20 (THE MEDICATION REQUESTED IS ON THE MED LIST ABOVE) All of the medications requested were on the CURRENT MEDS list Alcohol Swabs (ALCOHOL PREP) 70 % Pads Did you check the Pharmacy information above?: YES Patient wants: 30 -day supply Is this a mail order prescription request ? NO If the refill is from a FAXED refill request what is the RX # listed on the fax? [phone] Patients current insurance carrier is: Payor: e|tab FFS / Plan: [employer] / Product Type: MEDICAID RISK documented in this encounter Plan of Treatment Not on file documented as of this encounter Visit Diagnoses Not on filedocumented in this encounter Care Teams Water Resource Project Manager Relationship Specialty Start Date End Date Charo Chakraborty MD PCP - General Internal Medicine 02/14/18 documented as of this encounter"
--- OUTSIDE RECORDS SUMMARY | 2025-07-05 15:18 | XMS_ITS | Encounter Summary ---
Author Organization [employer] [facility] Address [address] [place] [address] Care Team Providers Care Deputy Sheriff Generalist Name Role Phone Charo Chakraborty MD Primary Care Provider [phone] Reason for Visit * Reason Onset Date Comments Medication 04/06/2020 Encounter Details Date Type Department Care Team Description 04/06/2020 Telephone Internal Medicine - [address], [address] [place] [address] Charo Chakraborty MD [address] [place] [phone] Medication Social History Tobacco Use Types Packs/Day [...] Telephone Encounter - Charo Chakraborty MD - 04/07/2020 12:08 PM EDT Trazodone for sleep sent to the pharmacy, Ask her if she is interested to go to pain management She can take Tylenol and naproxen for pain * Telephone Encounter - Barbara Lazo M.A. - 04/06/2020 11:25 AM EDT Please review and advise.map * Telephone Encounter - Ellen Hernadez - 04/06/2020 11:05 AM EDT Patients daughter is calling stating patient cant sleep due to pain. States Dr. Chakraborty knows about her pain. Is asking for pain medication as well as sleeping medication. documented in this encounter Plan of Treatment Not on file documented as of this encounter Visit Diagnoses Not on filedocumented in this encounter Care Teams Deputy Sheriff Generalist Relationship Specialty Start Date End Date Charo Chakraborty MD PCP - General Internal Medicine 02/14/18 documented as of this encounter
--- OUTSIDE RECORDS SUMMARY | 2025-07-05 15:18 | XMS_ITS | Encounter Summary ---
Author Organization [facility] Address [address] [place] [address] Care Team Providers Care Newspaper Columnist Name Role Phone Charo Chakraborty MD Primary Care Provider [phone] Reason for Visit * Reason Onset Date Comments refill request 02/09/2022 Encounter Details Date Type Department Care Team Description 02/09/2022 Refill Internal Medicine - [address], [address] [place] [address] Charo Chakraborty MD [address] [place] [phone] refill request Social History Tobacco Use [...] encounter Miscellaneous Notes * Telephone Encounter - Aniya Perez M.A. - 02/09/2022 2:02 PM EDT No visits with results within 1 Month(s) from this visit. Latest known visit with results is: Appointment on 09/28/2021 Component Date Value ??? GLUCOSE, URINE (UA) 09/28/2021 250 (A) ??? BILIRUBIN URINE 09/28/2021 NEGATIVE ??? KETONE, URINE 09/28/2021 NEGATIVE ??? SPECIFIC GRAVITY, URINE 09/28/2021 1.012 ??? BLOOD, URINE 09/28/2021 NEGATIVE ??? PH, URINE 09/28/2021 6.0 ??? PROTEIN, URINE 09/28/2021 NEGATIVE ??? UROBILINOGEN, URINE 09/28/2021 0.2 ??? NITRITE,URINE 09/28/2021 NEGATIVE ??? LEUKOCYTE ESTERASE, URINE 09/28/2021 NEGATIVE * Telephone Encounter - Ninfa Simmons - 02/09/2022 1:47 PM EDT SAMUEL 11/22/21 NOV 03/08/22 documented in this encounter Plan of Treatment Not on file documented as of this encounter Visit Diagnoses Diagnosis Hypertriglyceridemia Pure hyperglyceridemia Essential hypertension Unspecified essential hypertension Diabetes mellitus type 2 with neurological manifestations (HCC) Type II or unspecified type diabetes mellitus with neurological manifestations, not stated as uncontrolled documented in this encounter Care Teams Newspaper Columnist Relationship Specialty Start Date End Date Charo Chakraborty MD PCP - General Internal Medicine 02/14/18 documented as of this encounter
--- OUTSIDE RECORDS SUMMARY | 2025-07-05 15:18 | XMS_ITS | Encounter Summary ---
Author Organization [facility] Address [address] [place] [address] Care Team Providers Care Diesel Engine Inspector Name Role Phone Charo Charkaborty MD Primary Care Provider [phone] Encounter Details Date Type Department Care Team Description 07/21/2018 Hospital Medical Records [address] [place] [address] Tara Michele NP Social History Tobacco Use Types Packs/Day Years [...] on filedocumented in this encounter Care Teams Diesel Engine Inspector Relationship Specialty Start Date End Date Charo Chakraborty MD PCP - General Internal Medicine 02/14/18 documented as of this encounter
--- OUTSIDE RECORDS SUMMARY | 2025-07-05 15:18 | XMS_ITS | Encounter Summary ---
Author Organization [facility] [employer] [facility] Address [address] [place] [address] Care Team Providers Care Drum Sprayer Name Role Phone Charo Chakraborty MD Primary Care Provider [phone] Reason for Visit * Reason Onset Date Comments Note, Other 04/14/2018 Encounter Details Date Type Department Care Team Description 04/14/2018 Telephone Pulmonology - [address] [place] [address] Slick Diego MD Note, Other Social History Tobacco Use Types Packs/Day Years [...] Telephone Encounter - Alana Sanabria M.A. - 04/14/2018 2:29 PM EDT Faxed last office note ,PFT is not scheduled until 05/26/18. * Telephone Encounter - Janna Figueredo - 04/14/2018 1:35 PM EDT Marcela Bergeron from pulmo rehab wants last office and recent PFT and a order for pulmo rehab faxed [phone] documented in this encounter Plan of Treatment Not on file documented as of this encounter Visit Diagnoses Not on filedocumented in this encounter Care Teams Drum Sprayer Relationship Specialty Start Date End Date Charo Chakraborty MD PCP - General Internal Medicine 02/14/18 documented as of this encounter
--- OUTSIDE RECORDS SUMMARY | 2025-07-05 15:18 | XMS_ITS | Encounter Summary ---
Author Organization [employer] [facility] Address [address] [place] [address] Care Team Providers Care Collar Turner Operator Name Role Phone Charo Chakraborty MD Primary Care Provider [phone] Encounter Details Date Type Department Care Team Description 12/29/2019 Telephone Internal Medicine [facility] 175 [facility], [address] [place] [address] Charo Chakraborty MD [address] [place] [phone] Social History Tobacco Use Types Packs/Day [...] on filedocumented in this encounter Care Teams Collar Turner Operator Relationship Specialty Start Date End Date Charo Chakraborty MD PCP - General Internal Medicine 02/14/18 documented as of this encounter
--- OUTSIDE RECORDS SUMMARY | 2025-07-05 15:18 | XMS_ITS | Encounter Summary ---
Author Organization [facility] Address [address] [place] [address] Care Team Providers Care Tire Mechanic Name Role Phone Charo Chakraborty MD Primary Care Provider [phone] Reason for Visit * Reason Onset Date Comments refill request 05/01/2018 Encounter Details Date Type Department Care Team Description 05/01/2018 Telephone Pulmonology [facility] 175 [facility] [address] [place] [address] Slick Diego MD refill request Social History [...] Telephone Encounter - Alana Sanabria M.A. - 05/01/2018 2:49 PM EDT Patient called, needs refill on singulair,proair,incruse and breo. documented in this encounter Plan of Treatment Not on file documented as of this encounter Visit Diagnoses Diagnosis Asthma with acute exacerbation, unspecified asthma severity, unspecified whether persistent documented in this encounter Care Teams Tire Mechanic Relationship Specialty Start Date End Date Charo Chakraborty MD PCP - General Internal Medicine 02/14/18 documented as of this encounter
--- OUTSIDE RECORDS SUMMARY | 2025-07-05 15:18 | XMS_ITS | Encounter Summary ---
Author Organization [facility] Address [address] [place] [address] Care Team Providers Care Baker Second Name Role Phone Charo Chakraborty MD Primary Care Provider [phone] Reason for Visit * Reason Onset Date Comments Medication 10/13/2018 Encounter Details Date Type Department Care Team Description 10/13/2018 Telephone Internal Medicine - [address], [address] [place] [address] Slick Diego MD Medication Social History Tobacco Use Types Packs/Day [...] Telephone Encounter - Slick Diego MD - 10/14/2018 4:28 PM EST Sent rx. Will see her then * Telephone Encounter - Amie Campbell M.A. - 10/14/2018 3:13 PM EST She saw Enmanuel the last couples time. * Telephone Encounter - Radha Ramírez R.N. - 10/13/2018 10:53 AM EST Good Morning Patient contacted [facility] to request assistance in requesting a rx for Benzonatate. Patient seen in the on 10/11/18 for an asthma exacerbation. She has an appt with Dr Diego scheduled for 10/27/18. Would you consider calling a rx in for her? Thank you Radha Ramírez, tool room supervisor Manager with [facility] 175 [facility] [id number] documented in this encounter Plan of Treatment Not on file documented as of this encounter Visit Diagnoses Not on filedocumented in this encounter Care Teams Baker Second Relationship Specialty Start Date End Date Charo Chakraborty MD PCP - General Internal Medicine 02/14/18 documented as of this encounter
--- OUTSIDE RECORDS SUMMARY | 2025-07-05 15:18 | XMS_ITS | Encounter Summary ---
Author Organization [employer] [facility] Address [address] [place] [address] Care Team Providers Care Fuel System Maintenance Supervisor Name Role Phone Charo Chakraborty MD Primary Care Provider Reason for Visit * Reason Comments E-prescribe Rx Request Encounter Details Date Type Department Care Team Description 01/09/2022 Refill Pulmonology - [place] 175 [facility] 200 [place] [phone] Madina Carter, TONNY [address] [phone] E-prescribe Rx Request Social History Tobacco Use [...] suspected to have Coronavirus/COVID-19? No / Unsure 01/09/2022 12:54 PM EDT documented as of this encounter Plan of Treatment Not on file documented as of this encounter Visit Diagnoses Diagnosis Allergic rhinitis, unspecified seasonality, unspecified trigger documented in this encounter Care Teams Fuel System Maintenance Supervisor Relationship Specialty Start Date End Date Charo Chakraborty MD PCP - General Internal Medicine 02/14/18 documented as of this encounter
--- OUTSIDE RECORDS SUMMARY | 2025-07-05 15:18 | XMS_ITS | Encounter Summary ---
Author Organization [facility] Address [address] [place] [address] Care Team Providers Care Blasting Miner Name Role Phone Charo Chakraborty MD Primary Care Provider [phone]- [phone] Encounter Details Date Type Department Care Team Description 09/18/2018 Orders Only Medical Records [address] [place] [address] Abstract, Provider Social History Tobacco Use Types [...] Name Priority Date/Time Associated Diagnosis Comments OUTSIDE MAMMO Routine 11/01/2017 documented in this encounter Results * OUTSIDE MAMMO (11/01/2017) Provider Abstract RADIOLOGY documented in this encounter Visit Diagnoses Not on filedocumented in this encounter Care Teams Blasting Miner Relationship Specialty Start Date End Date Charo Chakraborty MD PCP - General Internal Medicine 02/14/18 documented as of this encounter
--- OUTSIDE RECORDS SUMMARY | 2025-07-05 15:18 | XMS_ITS | Encounter Summary ---
[facility] Address [address] [place] [address] Care Team Providers Care Manager Discovery Name Role Phone Charo Chakraborty MD Primary Care Provider [phone]- [phone] Encounter Details Date Type Department Care Team Description 07/02/2018 Hoop Riveting Machine Operator Helper Report Medical Records [address] [place] [address] Charo Chakraborty MD [address] [place] [phone] Social History Tobacco Use Types Packs/Day [...] on filedocumented in this encounter Care Teams Manager Discovery Relationship Specialty Start Date End Date Charo Chakraborty MD PCP - General Internal Medicine 02/14/18 documented as of this encounter
--- OUTSIDE RECORDS SUMMARY | 2025-07-05 15:18 | XMS_ITS | Encounter Summary ---
[facility] [address] [place] [address] Care Team Providers Care Watch Hairspring Assembler Name Role Phone Charo Chakraborty MD Primary Care Provider [phone]- [phone] Reason for Visit * Reason Onset Date Comments Faxed Refill 01/05/2022 Encounter Details Date Type Department Care Team Description 01/05/2022 Refill Adult Medicine [facility] [address] [place] [address] Charo Chakraborty MD [address] [place] [phone] Faxed Refill Social History Tobacco Use [...] encounter Miscellaneous Notes * Telephone Encounter - Sharmaine Durham - 01/05/2022 1:19 PM EDT Patient would like script to be: E-PRESCRIBED/FAXED TO PHARMACY WHEN WAS THE PATIENT'S LAST APPOINTMENT IN ADULT MEDICINE? 11/22/21 WHEN WAS THE LAST TIME THE PATIENT SAW THEIR PCP? Same as above Does patient have an upcoming appointment? No (THE MEDICATION REQUESTED IS ON THE MED [...] N/A Patients current insurance carrier is: Payor: [facility] / Plan: [facility] $0 [place] [id number] / Product Type: MEDICARE RISK documented in this encounter Plan of Treatment Not on file documented as of this encounter Visit Diagnoses Not on filedocumented in this encounter Care Teams Watch Hairspring Assembler Relationship Specialty Start Date End Date Charo Chakraborty MD PCP - General Internal Medicine 02/14/18 documented as of this encounter
--- OUTSIDE RECORDS SUMMARY | 2025-07-05 15:18 | XMS_ITS | Encounter Summary ---
Author Organization [facility] Address [address] [place] [address] Care Team Providers Care Gunner'S Mate M Name Role Phone Charo Chakraborty MD Primary Care Provider [phone]- [phone] Reason for Visit * Reason Onset Date Comments medication problems 09/05/2018 Encounter Details Date Type Department Care Team Description 09/05/2018 Telephone Internal Medicine - [address], [address] [place] [address] Slick Diego MD medication problems Social History Tobacco Use Types [...] Telephone Encounter - Alana Sanabria M.A. - 09/09/2018 11:52 AM EST Called patient lmom to call office. * Telephone Encounter - Slick Diego MD - 09/05/2018 3:03 PM EST ok * Telephone Encounter - Radha Ramírez R.N. - 09/05/2018 2:42 PM EST Patient contacted [facility] to report that since she started using the Brovana as ordered she has startedto feel feverish, body aches and kidney pain. Patient feels strongly that it is because of the Brovana and does not want to continue to taking it and just continue the Budesonide and Albuterol. Patient seen in the office by Pierce 09/03/18 to discuss confusion she had re: meds for her nebulizer. Please advise. Thank you Radha Ramírez, graphics production specialist Manager with [facility] [id number] documented in this encounter Plan of Treatment Not on file documented as of this encounter Visit Diagnoses Not on filedocumented in this encounter Care Teams Gunner'S Mate M Relationship Specialty Start Date End Date Charo Chakraborty MD PCP - General Internal Medicine 02/14/18 documented as of this encounter
--- OUTSIDE RECORDS SUMMARY | 2025-07-05 15:18 | XMS_ITS | Encounter Summary ---
Author Organization [facility] Address [address] [place] [address] Care Team Providers Care Transition Program Manager Name Role Phone Charo Chakraborty MD Primary Care Provider [phone]- [phone] Encounter Details Date Type Department Care Team Description 07/21/2018 Hospital Medical Records [address] [place] [address] Tara Michele NP Social History Tobacco Use [...] on filedocumented in this encounter Care Teams Transition Program Manager Relationship Specialty Start Date End Date Charo Chakraborty MD PCP - General Internal Medicine 02/14/18 documented as of this encounter
--- OUTSIDE RECORDS SUMMARY | 2025-07-05 15:18 | XMS_ITS | Encounter Summary ---
Author Organization [facility] Address [address] [place] [address] Care Team Providers Care Solution Strategist Name Role Phone Charo Chakraborty MD Primary Care Provider +1- [phone] Encounter Details Date Type Department Care Team Description 07/24/2022 Orders Only Medical Records [address] [place] [address] Abstract, Provider Chronic pain of left knee Social History Tobacco Use Types Packs/Day Years [...] Procedure Name Priority Date/Time Associated Diagnosis Comments CHG RADIOLOGIC EXAMINATION KNEE 3 VIEWS Routine 07/19/2022 Chronic pain of left knee documented in this encounter Results * X-RAY KNEE 3 VIEW - W/O INJURY (07/19/2022) Charo Chakraborty MD RADIOLOGY documented in this encounter Visit Diagnoses Diagnosis Chronic pain of left knee Pain in joint, lower leg documented in this encounter Care Teams Solution Strategist Relationship Specialty Start Date End Date Charo Chakraborty MD PCP - General Internal Medicine 02/14/18 documented as of this encounter
== END 2025-07-05 13:48 | disposition home or self-care (01) ==
LOC: HO.HSMS 12:55
PROVIDERS: PCP Internal Medicine; Visit Provider Physician Assistant Medical
DX: G47.33 Obstructive sleep apnea (adult) (pediatric) (principal); G43.019 Migraine without aura, intractable, without status migrainosus; R45.4 Irritability and anger; R53.83 Other fatigue; R20.2 Paresthesia of skin; Z63.4 Disappearance and death of family member; G25.81 Restless legs syndrome
CPT/HCPCS: 99214; G2211

== ENCOUNTER → 2025-07-05 12:54 | Outpatient (BNVA) | payer OTHER, SELFPAY | PROVIDERS: PCP Internal Medicine; Visit Provider Physician Assistant Medical | DX: G47.33 Obstructive sleep apnea (adult) (pediatric) (principal); G43.019 Migraine without aura, intractable, without status migrainosus; Z99.89 Dependence on other enabling machines and devices; R45.4 Irritability and anger; R53.83 Other fatigue; R20.2 Paresthesia of skin; G25.81 Restless legs syndrome; Z63.4 Disappearance and death of family member | CPT/HCPCS: 99212 ==

== ENCOUNTER 2025-09-09 11:03 | Outpatient (AMB) | payer OTHER, SELFPAY ==
--- NOTE | 2025-09-09 11:08 | MHC.OFFVIS ---
Vital Signs 09/09/25 11:09 Height 5 ft 4 in Weight 188 lb 7.924 oz BMI 32.4 BP 120/64 Blood Pressure Location Lt brachial Position Sitting Pulse 113 H Pulse Source Pulse Oximeter Pulse Oximetry (%) 97 Oxygen Delivery Method Room Air Intake Visit Reasons: Cough Investigator Narcotics Required: Yes Investigator Narcotics Services: Investigator Narcotics Offered & Declined Investigator Narcotics Name: MD speaks tunisian Accompanied by: Self / Same As Patient Allergies naproxen Allergy (Severe, Verified 09/09/25 11:14) Hives egg Allergy (Unknown, Verified 09/09/25 11:14) Stomach Upset acetaminophen (From Percocet) Adverse Reaction (Severe, Verified 09/09/25 11:14) Hallucinations aspirin Adverse Reaction (Severe, Verified 09/09/25 11:14) Hives codeine Adverse Reaction (Severe, Verified 09/09/25 11:14) Itching ibuprofen (From Motrin IB) Adverse Reaction (Severe, Verified 09/09/25 11:14) Hives Iodinated Contrast Media Adverse Reaction (Severe, Verified 09/09/25 11:14) Hypertension mepolizumab (From Nucala) Adverse Reaction (Severe, Verified 09/09/25 11:14) Itching metformin Adverse Reaction (Severe, Verified 09/09/25 11:14) Difficulty Breathing montelukast (From Singulair) Adverse Reaction (Severe, Verified 09/09/25 11:14) Anxiety morphine Adverse Reaction (Severe, Verified 09/09/25 11:14) Hallucinations omalizumab (From Xolair) Adverse Reaction (Severe, Verified 09/09/25 11:14) Anaphylaxis oxycodone Adverse Reaction (Severe, Verified 09/09/25 11:14) Hallucinations pneumococcal vaccine Adverse Reaction (Severe, Verified 09/09/25 11:14) Hives prednisone Adverse Reaction (Severe, Verified 09/09/25 11:14) Itching tramadol Adverse Reaction (Severe, Verified 09/09/25 11:14) Hives accolate Adverse Reaction (Severe, Uncoded 10/30/24 11:11) Chest Pain PCN Adverse Reaction (Severe, Uncoded 10/30/24 11:11) Hives HPI Comments Details: The patient is a 70-year-old woman with a known history of asthma in addition to obstructive sleep apnea. She has been noticing worsening respiratory symptoms. She was placed on singular as a steroid sparing agent. However, she developed symptoms of depression and had to come off. She is continued on Trelegy which appears to be helping her. The patient had been on Nucala in the past for severe asthma. However, she developed an allergic reaction as well and had to stop it. She has not tried any other biologic medications after that. The patient has not required any prednisone. She also has diabetes and would like to hold off on any significant steroids that can worsen her diabetes control. The patient does have underlying allergies at this point will go ahead and we check her allergies to further assess her potential triggers in order to control her asthma symptoms. The patient also has underlying sleep apnea. She has been having difficulties tolerating the CPAP therapy. Therefore she has not been using it regularly the patient also has a hard time sleeping. She has been using gabapentin with some partial improvement of her symptoms. She does complaint of restless leg. 10/23/2023 the patient is here for a pulmonary follow-up visit. Apparently she was sick back close to the holidays. She had a hard time getting in to be seen. Therefore she stayed home and gave herself breathing treatments throughout the day and finally started feeling better after few days. She was concerned though that her breathing was significantly effective. The patient did not take any prednisone and she does not like to take prednisone because it causes her to have pleuritis and also elevated blood sugars. She is also struggling with her sleep. She does have a CPAP in the CPAP therapy has been very affecting beneficial for her in the past but now she does not get supplies from the [employer]. Her machine now is older than 5 years therefore will see about getting her new machine them in more effective and then that weight getting her situated with the [facility] [employer] [facility]. Her Ludington score is elevated at 10 over 24. She does have cardiovascular risk factors are treating his sleep apnea is important. The patient likely will require repeat home sleep study. Will reach out to her [employer] company to see if they need any other additional information in order to get a replacement machine at this time. In the meantime for her respiratory symptoms she does have increased wheezing therefore will send him medications with the pharmacy and will optimize her Trelegy by switching over to the 200 mcg dose for a month and then hopefully we can titrate her back down to the 100 mcg those. 03/27/2024 the patient is here for sick visit. She has been sick for about 3-4 days. She started developing increased chest tightness and cough. She is also felt weak. She felt some chills. She did call the office we do not have any availability we recommended she go to urgent care. She called again we sent her some medications in the meantime. We made an appointment for today. She has been feeling a little better since she started the Medrol Evelio and she also started the antibiotics, azithromycin. She is still coughing up significant amount of mucus. Greenish in color. She did have a sample that was sent. 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 She was treated with Bactrim for about 4 weeks. She tolerated the treatment well. Will go ahead and send also modified acid-fast for Nocardia. The patient is having significant wheezing on examination. We did provide her with 2 DuoNeb treatments and also that swab for RSV, flu and COVID-19. The result came back negative. She also had a chest x-ray which I personally reviewed which demonstrated some slight atelectasis to the left base suggesting bronchitis. Will go ahead and treat her for early pneumonia at this time. 04/09/2024 the patient is here for a pulmonary follow-up visit. She has now completed the prednisone. Her sugars were significantly elevated up to 500 while on the prednisone. The patient did call EMS but by the time they got there she did take insulin and had improved. She still having hard time with breathing. Significant shortness of breath even at rest. Moderate severity. She has been using the nebulizer every 3-4 hours. She continues on the Trelegy inhaler. Unfortunately exam she is still having significant wheezing and rhonchi. She did complete 2 courses of antibiotics. Her chest x-ray was fairly clear except for some areas of atelectasis. Will go ahead and request blood work specially because heart rate significantly elevated at 125. She will go ahead blood work including a D-dimer to make sure she does not have a risk of thromboembolic disease. She will need additional prednisone. Will try to split into [address] her sugars do not go as high. She will have to take insulin the meantime to maintain her sugars within reason. If her symptoms worsen she may need to go to the ER otherwise follow-up in 3-4 weeks. 04/20/2024 the patient is here for a follow-up visit. She had a hard few months. Her asthma has been uncontrolled. Unfortunately she also has uncontrolled diabetes making it difficult to give her prednisone. We tried maximizing her respiratory therapy by adding budesonide. She has been in the Trelegy. Still having significant wheezing. Also chest congestion removed some greenish phlegm out of her lungs. Will go ahead and try to further adjust her in respiratory therapy by placing her on Brovana in continue the budesonide and then adding Incruse and moving the Trelegy. Hopefully with the nebulized therapy providing further bronchodilation deeper into the airways. In addition to that the patient will be starting on theophylline. She understands the adverse effects of theophylline. Specialist stimulant. She is going to monitor closely any symptoms. She can not tolerated she is going to back off and call me. The patient also will have theophylline levels checked in the coming weeks. I am hopeful though that with the theophylline she will start feeling better. She also continues on Dupixent injections every 2 weeks. If the patient is not getting any better very aggressive respiratory regimen will talk about considering bronchoscopy to rule out deep respiratory infections. And if no infections are warranted then at that point consider changing her biologic to test prior. Will reassess in 2-3 weeks. 05/07/2024 the patient is here for pulmonary follow-up visit. Overall she is doing better from a respiratory status. She did complete the prednisone which is reassuring. The patient has been on the nebulized therapy with some improvement. She did not black pickler the theophylline as it was not the pharmacy. At this point since her respiratory status is better will hold off on the as well. She does have difficulty sleeping. She is having significant restlessness. She is already taking gabapentin. I will give her higher dose at nighttime so she can sleep a little better. She is having some neuropathy issues. She will follow-up with her primary care doctor regarding that. In the meantime she continues with the Dupixent injections. Will continue to see her progress. If the patient continues to have underlying respiratory issues will consider switching her over to Tezspire. Also, we can always consider theophylline the future. 08/12/2024 the patient is here for a pulmonary follow-up visit. Overall she is doing better from a respiratory status. Unfortunately though when she feels better she does not use her nebulized therapy. Therefore she needs to continue to use her maintenance inhalers. Will go back to Trelegy that she tolerated before and will be optimizing respiratory therapy. This is because she still has wheezing on examination. The patient also continues on the Dupixent injections which appeared to be affecting beneficial. In no need to change him at this time. She has multiple complaints though she has difficulty sleeping because of neuropathy and restless leg. She is having blood work done add additional blood work to her testing. The patient is having hard time sleeping. She is willing to try Ambien as needed to see if this provides her more restful sleep in therefore she is not so aware of the issues. She continues on the gabapentin at nighttime as well for neuropathy. Will follow-up in about 4 months. If she has any issues prior to that she will call for an earlier assessment. 10/30/2024 the patient is here for a pulmonary follow-up visit. Overall the patient had been doing well until about a month ago when she started developing worsening respiratory symptoms. She went to an urgent care was having a course of azithromycin. Then she went to her primary care doctor that give her some prednisone and also another course of azithromycin. She is not significantly better. She still complains of cough chest tightness and wheezing. She has not had a chest x-ray she will have 1 today. In the meantime will start on doxycycline. She still has wheezing but she has been off the budesonide nebs. Therefore she understands that she needs to stay on this medication to minimize the need for prednisone. She got weaned off prednisone start the budesonide this time and continue other respiratory regimen. If the x-ray demonstrates any evidence of any airspace disease I will call her to add an additional antibiotic. Currently she is on Dupixent. I do believe that she may be a good candidate for Tezspire if she continues to be symptomatic. She does feel like Dupixent has been helping though. Therefore will continue that for now. 12/07/2024 the patient is here for a pulmonary follow-up visit. Overall doing well. Although still having some wheezing. She has not been using the Trelegy because it causes hoarseness. She has been using Incruse in the meantime. Although with increased wheezing she needs to have optimization of her inhalers. I will go ahead and send her shyami to the pharmacy with the hopes that with a spacer it does not cause significant hoarseness. She also has been using her CPAP every night. Although sometimes she does not lost the 4 hours because the machine starts leaking from the sizing the sound bothers her. Explained to her that she needs to use it 4 hours a night. She is going to do a better effort. In the meantime I did provide her with an AirTouch F20 medium mask this seems to be doing a little better and therefore she does not have to put it so tight and her phase to be able to get a good seal. Seems like it is going to work well for her. Will go ahead and request the same mask from her [employer] company. She continues to Dupixent seems to be helping her. Will follow-up in about 3-4 months. If she has any issues prior to that she will call for an earlier assessment. 03/09/2025 the patient is here for pulmonary follow-up visit. Her asthma has been more active lately. Significant wheezing and asthma symptoms for the last couple weeks. Moderate severity. She has been using respiratory inhalers as prescribed. She is also going through a significant family or deal where she lost her tragically in the have a lot a grieving going on right now. This may be affecting her breathing. She is also not sleeping well. I will provide her some Ambien for now. In the meantime if her symptoms worsen she may need some prednisone. She does have a nebulizer machine and her respiratory medications. She will continue a prescribed. She has not issues prior to that she will call for an earlier assessment. She continues on Dupixent injections which will continue as well. 09/09/2025 the patient is here for pulmonary follow-up visit. Overall the patient has been doing fair. She is grieving the loss of her . He was involved in a pedestrian accident. It was tragic. From a respiratory status she continues to be okay. She actually lost some weight because of the grieving and has helped her breathing some. She continues to need all her respiratory medications. I will make sure to send him. In addition to that she continues on the Dupixent which also has been helpful in minimizing the need for prednisone. The patient does have significant daytime drowsiness. Her Ludington score is elevated to over 24 and does have underlying cardiovascular risk factors. She did have CPAP before but then she became the activated from the [employer] company. Will go ahead and order another sleep study in order to get her activated again in getting her back on PAP therapy. [facility] Medical History Tachycardia Osteoarthritis Diabetic peripheral neuropathy Diabetes GERD (gastroesophageal reflux disease) Venous insufficiency Vitamin D deficiency Urinary incontinence Insomnia Hypertriglyceridemia HTN (hypertension) Anxiety Depression Lumbar spondylosis Tubular adenoma Dyspnea Chronic restrictive lung disease Asthma TONY (obstructive sleep apnea) Surgical History History of hernia repair H/O: hysterectomy Hx of cholecystectomy History of section Hx of appendectomy History of ankle surgery Family History Father CHF (congestive heart failure) Mother CHF (congestive heart failure) Asthma Brother Asthma Social History Alcohol intake: never Patient Tobacco Use Status: Never used Tobacco Review of Systems Const Reports daytime sleepiness, Reports difficulty sleeping, Reports fatigue, Reports snoring and Reports weight loss Eyes Denies change in vision ENT Denies change in voice, Reports nasal congestion and Reports nasal discharge Card Denies chest pain and Reports dyspnea on exertion Resp Denies chest congestion, Reports cough, Reports dyspnea on exertion, Reports snoring and Reports wheezing GI Reports no additional complaints Musc Reports no additional complaints and Reports tingling Skin/Breast Denies rash Neuro Reports no additional complaints, Reports restless legs, Reports tingling and Reports paresthesias Psych Reports as per HPI Endo Reports fatigue Fernando/Lymph Denies easy bleeding Aller/Immun Reports wheezing Physical Exam Vital Signs: Last Vital Signs Pulse 113 H 09/09/25 11:09 BP 120/64 09/09/25 11:09 Pulse Ox 97 09/09/25 11:09 Oxygen Delivery Method Room Air 09/09/25 11:09 BMI result Body Mass Index 32.4 Const General: comfortable HEENT Head: Yes normal to inspection Eyes General: appearance normal, both eyes and all related structures Neck Neck: Yes supple Chest Chest palpation & inspection: normal inspection of the chest Resp Effort & Inspection: normal respiratory effort Auscultation: no wheezes and diminished lung sounds Cardio Rate: regular rate Rhythm: regular rhythm Heart sounds: S1 normal heart sound present and S2 normal heart sound present GI Inspection: Yes normal to inspection Extrem General: Yes no clubbing, cyanosis or edema Assessment & Plan Assessment & Plan (1) Asthma: Code(s): J45.909 - Unspecified asthma, uncomplicated Category: Medical Qualifiers: Asthma complication type: uncomplicated Asthma persistence: persistent Asthma severity: severe Qualified Code(s): J45.50 - Severe persistent asthma, uncomplicated (2) Cough: Code(s): R05.9 - Cough, unspecified Category: Medical Qualifiers: Cough type: subacute Qualified Code(s): R05.2 - Subacute cough (3) TONY (obstructive sleep apnea): Code(s): G47.33 - Obstructive sleep apnea (adult) (pediatric) Category: Medical (4) Insomnia: Code(s): G47.00 - Insomnia, unspecified Category: Medical Qualifiers: Insomnia type: primary Qualified Code(s): F51.01 - Primary insomnia (5) Dyspnea: Code(s): R06.00 - Dyspnea, unspecified Category: Medical Qualifiers: Dyspnea type: dyspnea on exertion Qualified Code(s): R06.09 - Other forms of dyspnea (6) Fatigue: Code(s): R53.83 - Other fatigue Category: Medical Qualifiers: Fatigue type: unspecified Qualified Code(s): R53.83 - Other fatigue Plan continue Budesonide BID Breztri with spacer continue Dupixent, consider Teazsipre EpiPen available MEMO as needed continue Zyrtec gabapentin at night 600-900mg Ambien as needed avoid singular secondary to depressive symptoms Home PSG to address TONY and reactivation F/U 4-6 months Orders: Orders RT home sleep study Today G47.33 - Obstructive sleep apnea (adult) (pediatric) Medications: Changed From [id number] 160-9-4.8 mcg/actuation (Breztri Aerosphere) 2 inhalations inhalation BID 10.7 grams 11RF To [id number] 160-9-4.8 mcg/actuation (Breztri Aerosphere) 2 inhalations inhalation BID 3 ea 3RF 90 days Refilled albuterol sulfate 90 mcg/actuation 2 inhalations inhalation Q6H PRN 3 ea 3RF shortness of breath or wheezing 90 days J44.9 - Chronic obstructive pulmonary disease, unspecified Coding Level of Care Code Add On Preventative Visit Only Diagnoses Severe persistent asthma without complication J45.50 Asthma complication type: uncomplicated Asthma persistence: persistent Asthma severity: severe Subacute cough R05.2 Cough type: subacute TONY (obstructive sleep apnea) G47.33 Primary insomnia F51.01 Insomnia type: primary Dyspnea on exertion R06.09 Dyspnea type: dyspnea on exertion Fatigue, unspecified type R53.83 Fatigue type: unspecified Time Spent (min) 18
[2025-09-09 11:09] VITALS: BP 120/64; PULSE 113; O2SAT 97; BMI 32.4
== END 2025-09-09 11:37 | disposition home or self-care (01) ==
LOC: HO.HPS 11:04
PROVIDERS: PCP Internal Medicine; Visit Provider Hospitalist
DX: J45.50 Severe persistent asthma, uncomplicated (principal); R05.2 Subacute cough; G47.33 Obstructive sleep apnea (adult) (pediatric); F51.01 Primary insomnia; R06.09 Other forms of dyspnea; R53.83 Other fatigue
CPT/HCPCS: 99214; G2211

== ENCOUNTER → 2025-09-09 11:03 | Outpatient (BNVA) | payer OTHER, SELFPAY | PROVIDERS: PCP Internal Medicine; Visit Provider Hospitalist | DX: G47.33 Obstructive sleep apnea (adult) (pediatric) (principal); J45.50 Severe persistent asthma, uncomplicated; F51.01 Primary insomnia; R06.09 Other forms of dyspnea; R53.83 Other fatigue; R05.2 Subacute cough; Z79.899 Other long term (current) drug therapy | CPT/HCPCS: 99212 ==